=== PATIENT | female | born 1960 | race Caucasian/White ===

== ENCOUNTER → 2018-02-24 07:08 | Outpatient (CLI) | payer OTHER, SELFPAY ==
--- NOTE | 2018-02-24 07:22 | BI_ITS ---
MAMMOGRAPHY - BILATERAL SCREENING REASON FOR EXAM: Female, 57 years old. Routine annual screening examination. PERTINENT HISTORY: Mother with breast cancer. Aunt with breast cancer. TECHNIQUE: Digital bilateral breast gurdeep (3D mammographic acquisition) in the CC and MLO projections. 2-D mediolateral oblique (MLO) and craniocaudad (CC) views of both breasts were obtained. CAD: Full Field Digital Mammography with Computer Added Detection was performed. COMPARISON: No comparison mammograms available at this time. If any prior films become available, an addendum to this report can be generated. FINDINGS: Breast Composition: The breasts are heterogeneously dense, which may obscure small masses. There are no dominant masses or suspicious calcifications. There is a 4.3 mm x 4.1 mm well-defined nodule in the axillary region of the left breast. This most likely represents a small lymph node. Correlation with ultrasound is recommended. No other significant abnormalities are identified. BI/SCREENING MAMM (CAD), BILAT IMPRESSION: 4.3 mm x 4.1 mm well-defined nodule in the axillary region of the left breast as described. This most likely represents a small lymph node. Correlation with ultrasound is recommended. ASSESSMENT CATEGORY: BIRADS Category 0: Incomplete. Need additional imaging evaluation. A letter regarding these results will be sent to the patient by the facility within 30 days. Approximately 10% of breast cancers are not detected by mammography. A normal mammogram should not delay biopsy of a clinically suspicious abnormality. [id number] Electronically Signed: Pete Bartholomew MD at 8:16 EST Tel [phone], Service support ,
== END ==
PROVIDERS: Family Provider Nurse Practitioner Family; PCP Nurse Practitioner Family; Referring Provider Nurse Practitioner Family; Visit Provider Nurse Practitioner Family
DX: Z12.31 Encounter for screening mammogram for malignant neoplasm of breast (principal)
CPT/HCPCS: 77063; 77067

== ENCOUNTER → 2018-03-17 13:14 | Outpatient (CLI) | payer OTHER, SELFPAY ==
[2017-04-14 10:37] VITALS: BMI 22.0
--- NOTE | 2018-03-17 13:17 | US_ITS ---
STUDY: ULTRASOUND BREAST - LEFT REASON FOR EXAM: Female, 57 years old. Axillary nodule. TECHNIQUE: Axial and longitudinal images of the LEFT breast were performed with a high resolution ultrasound transducer. COMPARISON: None. FINDINGS: LEFT Breast: There is normal appearance of the fibroglandular tissue bilaterally. No evidence of any masses, dilated ducts or cysts. No significantly enlarged lymph nodes in the left axilla US/Breast Limited Unilateral IMPRESSION: Negative ultrasound of the left breast BIRADS Category 1. Electronically Signed: Pete Bartholomew MD at 8:40 EST Tel [phone], Service support ,
== END ==
PROVIDERS: Family Provider Nurse Practitioner Family; PCP Nurse Practitioner Family
DX: R92.2 Inconclusive mammogram (principal)
CPT/HCPCS: 76642

== ENCOUNTER → 2018-05-04 12:54 | Outpatient (CLI) | payer OTHER, SELFPAY ==
[2017-04-14 10:37] VITALS: BMI 22.0
--- NOTE | 2018-05-05 10:08 | PFT ---
INTRODUCTION: The patient is a 57-year-old female that presents for pulmonary function studies secondary to a diagnosis of shortness of breath. Respiratory therapy reports good patient effort. Bronchodilators were used during testing. INTERPRETATION: Forced expiration spirometry demonstrates no evidence of a large airways obstructive ventilatory defect. There was no significant response to aerosolized bronchodilators. Spirograms are of good quality and plateau normally. Body plethysmography was performed and revealed an elevated TLC and RV, which is of unclear significance, given the patient's lack of obstruction on spirometry. Diffusing capacity by single breath CO was within normal limits. IMPRESSION: Normal spirometry and diffusing capacity.
== END ==
DX: R06.00 Dyspnea, unspecified (principal)
CPT/HCPCS: 94060; 94726; 94729

== ENCOUNTER → 2018-05-26 15:20 | Outpatient (CLI) | payer OTHER, SELFPAY ==
[2017-04-14 10:37] VITALS: BMI 22.0
--- NOTE | 2018-05-26 15:24 | EKG12_ITS ---
Test Reason : CHEST PAIN Blood Pressure : / mmHG Vent. Rate : 056 BPM Atrial Rate : 056 BPM P-R Int : 134 ms QRS Dur : 088 ms QT Int : 404 ms P-R-T Axes : 068 044 048 degrees QTc Int : 389 ms Sinus bradycardia Possible Left atrial enlargement Borderline ECG Confirmed by ZAYDA GAITAN, BOB ([id number]), photography editor DELMY DE LA TORRE ([id number]) on 05/28/2018 1:06:51 PM Referred By: [facility] Confirmed By:BOB PRIEST MD
== END ==
DX: R07.9 Chest pain, unspecified (principal)
CPT/HCPCS: 93005

== ENCOUNTER → 2018-06-04 09:45 | Outpatient (CLI) | payer OTHER, SELFPAY ==
[2017-04-14 10:37] VITALS: BMI 22.0
--- NOTE | 2018-06-04 09:51 | ECHOD_ITS ---
Reason For Study: chest pain, unspecified Procedure This was a 2D Doppler, Color Flow transthoracic echocardiogram. The study was technically difficult. Due to smoking history. Exam performed in department. Left Ventricle Normal LV size. Left ventricular systolic function is normal. The estimated ejection fraction is 60 %. No evidence for diastolic dysfunction. No regional wall motion abnormalities noted. Right Ventricle Normal RV size. Normal systolic function. Atria Normal left atrium. Normal right atrium. Mitral Valve Normal mitral valve. Tricuspid Valve Normal tricuspid valve. Aortic Valve Normal aortic valve. Pulmonic Valve Normal pulmonic valve. Great Vessels Normal aortic root. The pulmonary artery is normal size. Normal inferior vena cava. Pericardium/Pleural No pericardial effusion. MMode/2D Measurements & Calculations LVIDd: 4.1 cm IVSd: 0.94 cm Ao root diam: 3.2 cm LVIDs: 2.5 cm LVPWd: 0.93 cm LA dimension: 2.9 cm RVDd: 2.5 cm FS: 39.8 % LAV(MOD-bp): 32.3 ml LA A4 area: 12.5 cm2 RA A4 area: 13.1 cm2 LAV(MOD-bp) Indexed: 20.1 ml/m2 LAV(MOD-sp2): 25.5 ml LAV(MOD-sp4): 28.4 ml Doppler Measurements & Calculations MV E max pasquale: 82.1 cm/sec Lat Peak E' Pasquale: 10.1 cm/sec Med Peak E' Pasquale: 7.7 cm/sec MV A max pasquale: 54.3 cm/sec E/E' lat: 8.2 E/E' med: 10.7 MV E/A: 1.5 Ao V2 max: 122.5 cm/sec LV V1 max: 89.8 cm/sec PA V2 max: 82.0 cm/sec Ao max P.0 mmHg LV V1 max P.2 mmHg TR max pasquale: 222.5 cm/sec TR max P.9 mmHg Interpretation Summary Normal LV size. Left ventricular systolic function is normal. The estimated ejection fraction is 60 %. No evidence for diastolic dysfunction. Structurally normal valves. Ordering Physician: CARLOTA PRESCOTT Referring Physician: CARLOTA PRESCOTT FREE Performed By: Trinidad Ann, STAR, RVT
== END ==
DX: R07.9 Chest pain, unspecified (principal)
CPT/HCPCS: 93306

== ENCOUNTER → 2018-06-28 | Outpatient (CLI) | payer OTHER, SELFPAY ==
[2018-06-09 14:50] VITALS: BMI 23.9
--- NOTE | 2018-06-28 12:33 | STE_ITS ---
Reason For Study: CHEST PAIN Stress Results Protocol: ARELY Maximum Predicted HR: 161 bpm Target HR: 137 bpm % Maximum Predicted HR: 95 % DurationHeart Rate Stage (mm:ss) (bpm) BP Comment BASELINE 63 138/82 STAGE 1 3:00 115 152/70 STAGE 2 3:00 141 170/70 STAGE 3 1:00 153 / INCREASED SOB RECOVERY 82 140/86 Stress Duration: 7:00 mm:ss Maximum Stress HR: 153 bpm Baseline Echocardiogram Findings Stress Echo Wall motion Data Resting WM Intermediate WM Stress WM Resting Wall Motion Wall Motion Stress No regional wall motion No regional wall motion abnormalities noted. abnormalities noted. Ejection Fraction 55 %. Ejection Fraction 65 %. Interpretation Summary Exercise stress echo. 57-year-old lady with a history of chest pain. Stress protocol: Resting EKG demonstrates normal sinus rhythm with a rate of 64 bpm normal intervals are noted resting blood pressure 138/82 mmHg. The patient exercised according to regular Arely protocol for total duration of 7 minutes patient completed 1 minute into stage III of the Arely protocol the maximum heart rate attained was 190 beats minute which was 118% of maximum predicted heart rate the maximum workload was 10.1 metabolic equivalents. At rest there were no ST or T wave changes noted suggest ischemia peak exercise upsloping ST changes only were noted with no meet the criteria for ischemia. The resting blood pressure 152/70 with a peak blood pressure 170/70 mmHg. No clinical angina was noted. Stress echocardiographic images. The resting and stress echocardiogram for images were noted to demonstrate preserved ejection fraction the resting ejection fraction was approximately 55% with a peak ejection fraction of 65%. No wall motion abnormalities were noted and the chamber contracted appropriately with augmentation of ejection fraction. Conclusion: Excellent functional capacity. Normal rest and stress and echocardiogram with no evidence of ischemia. Ordering Physician: Asael Salter Referring Physician: Asael Salter Performed By: Alem Maldonado RDCS
== END | disposition home or self-care (01) ==
LOC: CVS 12:32
PROVIDERS: Referring Provider Internal Medicine Cardiovascular Disease; Visit Provider Internal Medicine Cardiovascular Disease
DX: R07.9 Chest pain, unspecified (principal)
CPT/HCPCS: 93017; 93350

== ENCOUNTER → 2019-02-21 08:49 | Outpatient (CLI) | payer OTHER, SELFPAY ==
[2019-02-21 08:45] VITALS: BMI 25.0
--- NOTE | 2019-02-21 08:51 | RAD_ITS ---
STUDY: X-RAY - LEFT HAND REASON FOR EXAM: Female, 58 years old. Cat bite overlying the first metacarpal. TECHNIQUE: 3 view(s) of the hand. COMPARISON: None. FINDINGS: Normal radiocarpal articulation. Normal distal radioulnar joint. Normal visualized carpal bones. Normal carpal articulations Normal carpometacarpal articulation of the thumb. Normal second through fifth carpometacarpal joints. Normal metacarpi. Normal metacarpophalangeal joint of the thumb. Normal interphalangeal joint of the thumb. Normal proximal and distal phalanges of the thumb. Normal metacarpophalangeal joints of the second through fifth fingers. Normal proximal and distal interphalangeal joints of the second through fifth fingers. Normal phalanges of the second through fifth fingers. Soft tissue swelling. No radiopaque foreign body is seen. RAD/Hand Min 3 Views IMPRESSION: Soft tissue swelling. Electronically Signed: Pete Bartholomew, at 9:08 EST , Service support ,
== END ==
PROVIDERS: Referring Provider Physician Assistant; Visit Provider Physician Assistant
DX: S61.452A Open bite of left hand, initial encounter (principal); W55.01XA Bitten by cat, initial encounter
CPT/HCPCS: 73130

== ENCOUNTER → 2019-08-31 | Outpatient (CLI) | payer OTHER, SELFPAY ==
[2019-02-21 08:45] VITALS: BMI 25.0
--- NOTE | 2019-08-31 08:04 | BI_ITS ---
MAMMOGRAPHY - BILATERAL SCREENING REASON FOR EXAM: Female, 58 years old. Routine annual screening examination. PERTINENT HISTORY: Mother with breast cancer. Aunt with breast cancer. TECHNIQUE: Digital bilateral breast bonita (3D mammographic acquisition) in the CC and MLO projections. 2-D mediolateral oblique (MLO) and craniocaudad (CC) views of both breasts were obtained. CAD: Full Field Digital Mammography with Computer Added Detection was performed. COMPARISON: Comparison is made with prior examination dated February 24, 2018. FINDINGS: Breast Composition: The breasts are heterogeneously dense, which may obscure small masses. There are no dominant masses or suspicious calcifications. Stable 4.5 mm well-defined nodule in the axillary region of the left breast suggestive of a small lymph node. No other significant abnormalities are identified. There has been no significant change since the prior study. BI/SCREEN MAMM (CAD) W/BONITA BILAT IMPRESSION: Stable bilateral screening mammogram. Yearly follow-up mammogram recommended. (A) ASSESSMENT CATEGORY: BIRADS Category 2: Benign. A letter regarding these results will be sent to the patient by the facility within 30 days. Approximately 10% of breast cancers are not detected by mammography. A normal mammogram should not delay biopsy of a clinically suspicious abnormality. [id number] Electronically Signed: Pete Bartholomew, at 9:15 EDT , Service support ,
== END | disposition home or self-care (01) ==
DX: Z12.31 Encounter for screening mammogram for malignant neoplasm of breast (principal)
CPT/HCPCS: 77063; 77067

== ENCOUNTER → 2019-11-19 | Outpatient (CLI) | payer OTHER, SELFPAY ==
[2019-02-21 08:45] VITALS: BMI 25.0
[2019-11-19 09:01] LABS: Absolute Lymphocyte Count 1.43 X10^3/uL (0.83-4.51); Absolute Neutrophil Count 4.8 X10^3/uL (2.0-7.7); Basophil# 0.07 X10^3/uL; Basophil% 0.9 % (0-1); Eosinophil# 0.16 X10^3/uL; Eosinophils% 2.2 % (0-5); Hematocrit 39.9 % (37-47); Hemoglobin 12.9 g/dL (12.0-15.0); Lymphocyte # 1.43 X10^3/ul (4.0); Lymphocyte % 19.4 % (19-41); Mean Corp Hgb Conc 32.3 g/dL (32-36); Mean Corpuscular Volume 92.8 fL (81-99); Mean Platelet Vol. 10.5 fl (6.2-12.0); Monocyte# 0.88 X10^3/uL; Monocyte% 11.9 % (0-10); NRBC Flagged by Analyzer 0 % (0-5); Neutrophil # 4.82 X10^3/uL (2.7-7.7); Neutrophil % 65.5 % (47-70); Platelet Count 395 K/mm3 (150-450); RBC Distribution Width CV 13.8 % (11.6-14.6); RBC Distribution Width SD 46.5 fl (35.1-43.9); White Blood Count 7.4 K/mm3 (4.4-11.0)
[2019-11-19 09:12] LABS: ALB/GLOB Ratio 1.1 RATIO (0.9-2.4); AST(SGOT) 14 U/L (15-37); Alanine Aminotransfer ALT/SGPT 17 U/L (13-56); Albumin, Serum 3.9 g/dL (3.2-5.0); Alkaline Phosphatase 78 U/L (45-117); Anion Gap 3 (5-15); BUN 12 mg/dL (7-18); BUN/Creat Ratio 13.2 RATIO (10-20); Calcium,Total 8.9 mg/dL (8.5-10.1); Chloride 110 mmol/L (98-107); Cholesterol 209 mg/dL (200); Creatinine, Serum 0.91 mg/dL (0.55-1.02); EST Glomerular Filtration Rate 67 mL/min (>60); Est Glom Filt Rate - Afr Amer 81 mL/min (>60); Globulin 3.5 g/dL (2.2-4.2); Glucose 107 mg/dL (74-106); High Density Lipoprotein 53 mg/dL; Protein, Total 7.4 g/dL (6.4-8.2); Sodium Level 140 mmol/L (136-145); Triglycerides 57 mg/dL; Very Low Density Lipoprotein 11 mg/dL (5-40)
[2019-11-20 08:38] LABS: Vitamin D,25 Hydroxy 39.8 ng/mL
== END | disposition home or self-care (01) ==
LOC: LAB 08:08
PROVIDERS: Visit Provider Nurse Practitioner Family
DX: E78.5 Hyperlipidemia, unspecified (principal); E55.9 Vitamin D deficiency, unspecified; F41.9 Anxiety disorder, unspecified; F10.10 Alcohol abuse, uncomplicated
CPT/HCPCS: 36415; 80053; 80061; 82306; 85025

== ENCOUNTER → 2020-05-22 08:36 | Outpatient (CLI) | payer OTHER, SELFPAY ==
[2019-02-21 08:45] VITALS: BMI 25.0
[2020-05-22 09:40] LABS: Absolute Lymphocyte Count 1.58 X10^3/uL (0.83-4.51); Absolute Neutrophil Count 3.5 X10^3/uL (2.0-7.7); Basophil# 0.07 X10^3/uL; Basophil% 1.1 % (0-1); Eosinophil# 0.14 X10^3/uL; Eosinophils% 2.3 % (0-5); Hematocrit 43.7 % (37-47); Hemoglobin 13.6 g/dL (12.0-15.0); Lymphocyte # 1.58 X10^3/ul (4.0); Lymphocyte % 25.6 % (19-41); Mean Corp Hgb Conc 31.1 g/dL (32-36); Mean Corpuscular Hgb 28.6 pg (27.0-32.0); Mean Corpuscular Volume 91.8 fL (81-99); Mean Platelet Vol. 10.4 fl (6.2-12.0); Monocyte# 0.86 X10^3/uL; NRBC Flagged by Analyzer 0 % (0-5); Neutrophil % 56.8 % (47-70); Platelet Count 402 K/mm3 (150-450); RBC Distribution Width CV 12.6 % (11.6-14.6); RBC Distribution Width SD 42.9 fl (35.1-43.9); Red Blood Count 4.76 M/mm3 (4.2-5.4); White Blood Count 6.2 K/mm3 (4.4-11.0)
[2020-05-22 10:20] LABS: ALB/GLOB Ratio 1.1 RATIO (0.9-2.4); AST(SGOT) 22 U/L (15-37); Alanine Aminotransfer ALT/SGPT 22 U/L (13-56); Alkaline Phosphatase 80 U/L (45-117); Anion Gap 4 (5-15); BUN 13 mg/dL (7-18); BUN/Creat Ratio 12.4 RATIO (10-20); Calcium,Total 9.4 mg/dL (8.5-10.1); Chloride 104 mmol/L (98-107); Creatinine, Serum 1.05 mg/dL (0.55-1.02); EST Glomerular Filtration Rate 57 mL/min (>60); Est Glom Filt Rate - Afr Amer 68 mL/min (>60); Globulin 3.6 g/dL (2.2-4.2); Glucose 102 mg/dL (74-106); Potassium 4.3 mmol/L (3.5-5.1); Protein, Total 7.6 g/dL (6.4-8.2); Sodium Level 137 mmol/L (136-145); Thyroid Stim Hormone (TSH) 0.85 uIU/mL (0.358-3.74)
== END ==
DX: E78.5 Hyperlipidemia, unspecified (principal); F10.10 Alcohol abuse, uncomplicated
CPT/HCPCS: 36415; 80053; 84443; 85025

== ENCOUNTER → 2020-10-03 06:43 | Outpatient (CLI) | payer OTHER, SELFPAY ==
[2019-02-21 08:45] VITALS: BMI 25.0
[2020-10-03 07:32] LABS: Absolute Lymphocyte Count 2.03 X10^3/uL (0.83-4.51); Absolute Neutrophil Count 4.5 X10^3/uL (2.0-7.7); Basophil# 0.07 X10^3/uL; Basophil% 0.9 % (0-1); Eosinophil# 0.21 X10^3/uL; Eosinophils% 2.7 % (0-5); Hematocrit 42.8 % (37-47); Hemoglobin 13.8 g/dL (12.0-15.0); Lymphocyte # 2.03 X10^3/ul (0.83-4.51); Lymphocyte % 26.2 % (19-41); Mean Corp Hgb Conc 32.2 g/dL (32-36); Mean Corpuscular Hgb 29.6 pg (27.0-32.0); Mean Corpuscular Volume 91.6 fL (81-99); Mean Platelet Vol. 10.8 fl (6.2-12.0); Monocyte# 0.86 X10^3/uL; Monocyte% 11.1 % (0-10); NRBC Flagged by Analyzer 0 % (0-5); Neutrophil # 4.54 X10^3/uL (2.7-7.7); Neutrophil % 58.7 % (47-70); Platelet Count 390 K/mm3 (150-450); RBC Distribution Width CV 13.5 % (11.6-14.6); Red Blood Count 4.67 M/mm3 (4.2-5.4); White Blood Count 7.7 K/mm3 (4.4-11.0)
[2020-10-03 08:22] LABS: ALB/GLOB Ratio 1.1 RATIO (0.9-2.4); AST(SGOT) 16 U/L (15-37); Alanine Aminotransfer ALT/SGPT 18 U/L (13-56); Alkaline Phosphatase 84 U/L (45-117); Anion Gap 4 (5-15); BUN 13 mg/dL (7-18); BUN/Creat Ratio 14.5 RATIO (10-20); Calcium,Total 8.9 mg/dL (8.5-10.1); Chloride 107 mmol/L (98-107); EST Glomerular Filtration Rate 68 mL/min (>60); Est Glom Filt Rate - Afr Amer 82 mL/min (>60); Globulin 3.7 g/dL (2.2-4.2); Glucose 109 mg/dL (74-106); Potassium 4.1 mmol/L (3.5-5.1); Protein, Total 7.7 g/dL (6.4-8.2); Sodium Level 138 mmol/L (136-145); Thyroid Stim Hormone (TSH) 1.23 uIU/mL (0.358-3.74)
== END ==
DX: E78.5 Hyperlipidemia, unspecified (principal); F10.10 Alcohol abuse, uncomplicated
CPT/HCPCS: 36415; 80053; 84443; 85025

== ENCOUNTER → 2020-10-24 07:01 | Outpatient (CLI) | payer OTHER, SELFPAY ==
[2019-02-21 08:45] VITALS: BMI 25.0
--- NOTE | 2020-10-24 07:05 | BI_ITS ---
MAMMOGRAPHY - BILATERAL SCREENING REASON FOR EXAM: Female, 60 years old. Routine annual screening examination. PERTINENT HISTORY: TECHNIQUE: Digital bilateral breast bonita (3D mammographic acquisition) in the CC and MLO projections. 2-D mediolateral oblique (MLO) and craniocaudad (CC) views of both breasts were obtained. CAD: Full Field Digital Mammography with Computer Added Detection was performed. COMPARISON: 2019 FINDINGS: Breast Composition: Scans There are no dominant masses or suspicious calcifications. No other significant abnormalities are identified. BI/SCRN MAMM (CAD)W/BONITA BILAT IMPRESSION: Stable bilateral screening mammogram. Yearly follow-up mammogram recommended. (A) ASSESSMENT CATEGORY: BIRADS Category 1: Negative. A letter regarding these results will be sent to the patient by the facility within 30 days. Approximately 10% of breast cancers are not detected by mammography. A normal mammogram should not delay biopsy of a clinically suspicious abnormality. [id number] Electronically Signed: Sudeep Rodriguez DO at 15:33 EDT Tel , Service support ,
[2020-10-24 13:06] LABS: Vitamin B12 296 pg/mL (211-911)
[2020-10-24 13:50] LABS: Ferritin 34 ng/mL (8-252); Iron 74 ug/dL (50-170); Iron Binding Capacity,Total 350 ug/dL (250-450)
[2020-10-26 15:49] LABS: Vitamin D 1,25-Dihydroxy 51.2 pg/mL (19.9-79.3)
== END ==
PROVIDERS: Referring Provider Nurse Practitioner Adult Health; Visit Provider Nurse Practitioner Adult Health
DX: Z12.31 Encounter for screening mammogram for malignant neoplasm of breast (principal)
CPT/HCPCS: 36415; 77063; 77067; 82607; 82652; 82728; 82746; 83540; 83550

== ENCOUNTER → 2020-11-09 13:07 | Outpatient (CLI) | payer OTHER, SELFPAY ==
[2019-02-21 08:45] VITALS: BMI 25.0
--- NOTE | 2020-11-09 13:11 | CT_ITS ---
STUDY: LOW DOSE CT LUNG CANCER SCREENING REASON FOR EXAM: Female, 60 years old. NICOTINE DEPENDENCE,UNSPECIFIED,UNCOMPLICATED. Patient smoked half a pack per day for 40 years. RADIATION DOSAGE (If Supplied By Facility): CTDIvol = ( 2.01 ) mGy, DLP = ( 65.70 ) mGycm TECHNIQUE: No contrast was administered. Low dose technique was utilized (average mAS-38 and kVp 120). 1.25 mm axial source images with a slice interval of 1.25-mm were reconstructed in lung windows. 2.5 mm axial source images with a slice interval of 2.5-mm were reconstructed in lung windows. 5.0 mm axial source images with a slice interval of 5.0-mm were reconstructed in soft tissue windows. Nodule measured using lung windows on PACS and/or independent workstation with automated measurement of minimum and maximum diameter. Nodule measurement reported as average diameter rounded to the nearest whole number. Growth is defined as an increase ins size of greater than 1.5 mm. COMPARISON: None. NODULES: No suspicious nodules are seen. Findings suggest some mild scarring along the anterior medial aspect of the right middle lobe. Emphysema: No significant emphysema is unchanged. Endobronchial lesion: None Aorta: Unremarkable Coronary arteries: Unremarkable Heart: Unremarkable Pulmonary artery: Unremarkable Mediastinal nodes: Unremarkable Other chest and abdominal findings: CT/Low Dose CT Lung Screening IMPRESSION: Lung-RADS category 2 - Continue annual screening with LDCT in 12 months. IMPORTANT NOTES FOR USE: ACR Lung-RADS Version 1.1 Assessment Categories Release Date: 2018 Category: Coded 0-4 bases on nodule(s) with highest degree of suspicion. Negative screen is defined as categories 1 and 2; a positive screen is defined as categories 3 and 4. Category 3 and 4A nodules that are unchanged on interval CT should be coded as category 2, and individuals returned to screening in 12 months. Category 4X: Category 3 or 4 nodules with additional imaging findings that increase the suspicion of lung cancer, such as spiculation, GGN that doubles in size in 1 year, enlarged lymph notes, etc. Category Modifiers: S (significant finding unrelated to lung cancer) Electronically Signed: Pete Bartholomew MD at 13:47 EDT , Service support ,
== END ==
PROVIDERS: Referring Provider Nurse Practitioner Adult Health; Visit Provider Nurse Practitioner Adult Health
DX: Z12.2 Encounter for screening for malignant neoplasm of respiratory organs (principal); F17.200 Nicotine dependence, unspecified, uncomplicated
CPT/HCPCS: 71271

== ENCOUNTER → 2021-01-30 09:17 | Outpatient (CLI) | payer OTHER, SELFPAY ==
--- NOTE | 2021-01-30 09:21 | EKG12_ITS ---
Test Reason : DIZZINESS Blood Pressure : / mmHG Vent. Rate : 061 BPM Atrial Rate : 061 BPM P-R Int : 132 ms QRS Dur : 084 ms QT Int : 406 ms P-R-T Axes : 051 033 044 degrees QTc Int : 408 ms Normal sinus rhythm Normal ECG Confirmed by REI GAITAN, EDGAR ([id number]), assistant film editor ALEJANDRO SCHWAB ([id number]) on 01/31/2021 8:58:26 AM Referred By: Cleopatra Gaspar Confirmed By:EDGAR MINAYA MD
[2021-01-30 10:22] LABS: Absolute Lymphocyte Count 1.92 X10^3/uL (0.83-4.51); Absolute Neutrophil Count 3.5 X10^3/uL (2.0-7.7); Basophil# 0.07 X10^3/uL; Basophil% 1.1 % (0-1); Eosinophil# 0.21 X10^3/uL; Eosinophils% 3.3 % (0-5); Hematocrit 40.1 % (37-47); Hemoglobin 12.9 g/dL (12.0-15.0); Lymphocyte # 1.92 X10^3/ul (0.83-4.51); Lymphocyte % 30.3 % (19-41); Mean Corp Hgb Conc 32.2 g/dL (32-36); Mean Corpuscular Hgb 28.7 pg (27.0-32.0); Mean Corpuscular Volume 89.1 fL (81-99); Mean Platelet Vol. 10.2 fl (6.2-12.0); Monocyte# 0.61 X10^3/uL; Monocyte% 9.6 % (0-10); NRBC Flagged by Analyzer 0 % (0-5); Neutrophil # 3.51 X10^3/uL (2.7-7.7); Neutrophil % 55.4 % (47-70); Platelet Count 403 K/mm3 (150-450); RBC Distribution Width CV 13.1 % (11.6-14.6); White Blood Count 6.3 K/mm3 (4.4-11.0)
[2021-01-30 11:05] LABS: Vitamin B12 678 pg/mL (211-911)
[2021-01-30 11:31] LABS: Cholesterol 248 mg/dL (200); High Density Lipoprotein 48 mg/dL; Thyroid Stim Hormone (TSH) 0.85 uIU/mL (0.358-3.74); Triglycerides 70 mg/dL; Very Low Density Lipoprotein 14 mg/dL (5-40)
[2021-01-31 17:23] LABS: Thyroid Peroxidase AB 11 IU/mL (0-34)
== END ==
PROVIDERS: Referring Provider Nurse Practitioner Adult Health; Visit Provider Nurse Practitioner Adult Health
DX: E78.5 Hyperlipidemia, unspecified (principal); R53.83 Other fatigue; R42 Dizziness and giddiness
CPT/HCPCS: 36415; 80061; 82607; 82746; 84443; 85025; 86376; 93005

== ENCOUNTER 2021-04-16 20:00 | Outpatient (CLI) | payer OTHER, SELFPAY | END 2021-04-16 23:59 | disposition short-term general hospital (02) | PROVIDERS: Visit Provider Nurse Practitioner Adult Health | DX: R53.83 Other fatigue (principal); G47.10 Hypersomnia, unspecified | CPT/HCPCS: 95810 ==

== ENCOUNTER 2021-06-04 20:30 | Outpatient (CLI) | payer OTHER, SELFPAY | END 2021-06-04 23:59 | disposition home or self-care (01) | LOC: SL 20:30 | PROVIDERS: Visit Provider Nurse Practitioner Acute Care | DX: G47.33 Obstructive sleep apnea (adult) (pediatric) (principal) | CPT/HCPCS: 95811 ==

== ENCOUNTER → 2021-08-21 | Outpatient (CLI) | payer OTHER, SELFPAY | END | disposition home or self-care (01) | LOC: SL 11:56 | PROVIDERS: Referring Provider Nurse Practitioner Acute Care; Visit Provider Nurse Practitioner Acute Care | DX: Z00.00 Encounter for general adult medical examination without abnormal findings (principal) ==

== ENCOUNTER → 2021-10-25 | Outpatient (CLI) | payer OTHER, SELFPAY ==
--- NOTE | 2021-10-25 13:40 | BI_ITS ---
MAMMOGRAPHY - BILATERAL SCREENING REASON FOR EXAM: Female, 61 years old. Routine annual screening examination. PERTINENT HISTORY: Mother with breast cancer. Aunt with breast cancer. TECHNIQUE: Digital bilateral breast bonita (3D mammographic acquisition) in the CC and MLO projections. 2-D mediolateral oblique (MLO) and craniocaudad (CC) views of both breasts were obtained. CAD: Full Field Digital Mammography with Computer Added Detection was performed. COMPARISON: Comparison is made with prior study dated 10/24/2020 and 08/31/2019. FINDINGS: Breast Composition: There are scattered areas of fibroglandular density. There are no dominant masses or suspicious calcifications. Stable 4.5 mm well-defined nodule in the axillary region of the left breast suggestive of a small lymph node. No other significant abnormalities are identified. There has been no significant change since the prior study. BI/SCRN MAMM (CAD)W/BONITA BILAT IMPRESSION: Stable bilateral screening mammogram. Yearly follow-up mammogram recommended. (A) ASSESSMENT CATEGORY: BIRADS Category 2: Benign. A letter regarding these results will be sent to the patient by the facility within 30 days. Approximately 10% of breast cancers are not detected by mammography. A normal mammogram should not delay biopsy of a clinically suspicious abnormality. [id number] Electronically Signed: Pete Bartholomew MD at 10:18 EDT ,
== END | disposition home or self-care (01) ==
LOC: OPBI 13:40
PROVIDERS: Visit Provider Family Medicine
DX: Z12.31 Encounter for screening mammogram for malignant neoplasm of breast (principal); Z80.3 Family history of malignant neoplasm of breast
CPT/HCPCS: 77063; 77067

== ENCOUNTER → 2021-11-20 | Outpatient (CLI) | payer OTHER, SELFPAY | END | disposition home or self-care (01) | LOC: SL 21:43 | PROVIDERS: Referring Provider Internal Medicine Critical Care Medicine; Visit Provider Internal Medicine Critical Care Medicine | DX: G47.33 Obstructive sleep apnea (adult) (pediatric) (principal) | CPT/HCPCS: 95811 ==

== ENCOUNTER → 2021-11-22 | Outpatient (CLI) | payer OTHER, SELFPAY ==
[2021-11-22 07:06] LABS: Absolute Lymphocyte Count 2.45 X10^3/uL (0.83-4.51); Absolute Neutrophil Count 4.4 X10^3/uL (2.0-7.7); Basophil# 0.08 X10^3/uL; Eosinophil# 0.44 X10^3/uL; Eosinophils% 5.3 % (0-5); Hematocrit 40.9 % (37-47); Hemoglobin 13.2 g/dL (12.0-15.0); Lymphocyte # 2.45 X10^3/ul (0.83-4.51); Lymphocyte % 29.3 % (19-41); Mean Corp Hgb Conc 32.3 g/dL (32-36); Mean Corpuscular Hgb 29.3 pg (27.0-32.0); Mean Corpuscular Volume 90.9 fL (81-99); Mean Platelet Vol. 10.3 fl (6.2-12.0); Monocyte# 0.94 X10^3/uL; Monocyte% 11.3 % (0-10); NRBC Flagged by Analyzer 0 % (0-5); Neutrophil # 4.41 X10^3/uL (2.7-7.7); Neutrophil % 52.7 % (47-70); Platelet Count 429 K/mm3 (150-450); RBC Distribution Width CV 13.6 % (11.6-14.6); RBC Distribution Width SD 45.8 fl (35.1-43.9); White Blood Count 8.4 K/mm3 (4.4-11.0)
[2021-11-22 07:38] LABS: ALB/GLOB Ratio 1.1 RATIO (0.9-2.4); AST(SGOT) 15 U/L (15-37); Alanine Aminotransfer ALT/SGPT 21 U/L (13-56); Alkaline Phosphatase 76 U/L (45-117); Anion Gap 4 (5-15); BUN 15 mg/dL (7-18); BUN/Creat Ratio 13.9 RATIO (10-20); Calcium,Total 9.3 mg/dL (8.5-10.1); Chloride 108 mmol/L (98-107); Cholesterol 276 mg/dL (200); Creatinine, Serum 1.08 mg/dL (0.55-1.02); EST Glomerular Filtration Rate 54 mL/min (>60); Est Glom Filt Rate - Afr Amer 66 mL/min (>60); Globulin 3.5 g/dL (2.2-4.2); Glucose 109 mg/dL (74-106); High Density Lipoprotein 45 mg/dL; Potassium 3.9 mmol/L (3.5-5.1); Protein, Total 7.5 g/dL (6.4-8.2); Sodium Level 141 mmol/L (136-145); Triglycerides 140 mg/dL; Very Low Density Lipoprotein 28 mg/dL (5-40)
[2021-11-27 08:40] LABS: Vitamin D 1,25-Dihydroxy 37.7 pg/mL (24.8-81.5)
== END | disposition home or self-care (01) ==
LOC: LAB 06:37
PROVIDERS: Referring Provider Family Medicine; Visit Provider Family Medicine
DX: F33.0 Major depressive disorder, recurrent, mild (principal)
CPT/HCPCS: 36415; 80053; 80061; 82652; 85025

== ENCOUNTER → 2021-12-20 | Outpatient (CLI) | payer OTHER, SELFPAY | END | disposition home or self-care (01) | LOC: SL 13:34 | PROVIDERS: Visit Provider Nurse Practitioner Acute Care | DX: Z00.00 Encounter for general adult medical examination without abnormal findings (principal) ==

== ENCOUNTER 2022-01-14 08:23 | Day surgery (SDC) | payer OTHER, SELFPAY ==
[2022-01-14] MEDS: Lactated Ringers 1,000 ML 15 ML IV (08:45)
[2022-01-14 09:01] VITALS: BP 106/62; PULSE 70; RESP 18; TEMP 36.3; O2SAT 97; BMI 26.5
--- NOTE | 2022-01-14 09:47 | HP.PCM_ITS ---
History and Physical Date of Admission: 01/14/22 Intake Vital Signs ? 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 Specialist Required: No Is patient in pain?: No Allergies penicillin G Allergy (Mild, Verified 12/10/21 13:21) Swelling Medications escitalopram oxalate 20 mg tablet (Lexapro) 20 mg PO QDAY #90 tabs 04/14/17 [Rx Confirmed 12/10/21] bupropion HCl 150 mg tablet,12 hr sustained-release (Wellbutrin SR) 150 mg PO BID 12/10/18 [History Confirmed 12/10/21] omeprazole 20 mg capsule,delayed release 20 mg PO DAILY 05/14/21 [History Confirmed 12/10/21] albuterol sulfate 90 mcg/actuation aerosol inhaler 2 puff inhalation Q6H PRN 12/10/21 [History Confirmed 12/10/21] fluticasone propionate 50 mcg/actuation nasal spray,suspension spray intranasal PRN 12/10/21 [History Confirmed 12/10/21] hydrocortisone 2.5 % topical cream gm topical 12/10/21 [History Confirmed 12/10/21] Is last menstrual period known: No Post menopausal: Yes Patient : No PFSH Medical History? Anxiety and depression Hyperlipidemia Hypotension Nicotine dependence Skin cancer SOB (shortness of breath) Surgical History? Cyst Removal from breast History of hysterectomy History of LAVH Hx of appendectomy Family History? Mother Breast cancer HypertensionAunt Breast cancerBrother Hypertension Social History? Smoking Status:? Current every day smoker tobacco type: cigarettes alcohol intake:? current alcohol intake frequency: 0-2 drinks per day Alcohol type: hard liquor substance use type:? does not use caffeine:? Yes what type of physical activity do you participate in:? walking frequency:? 3-4 times per week seatbelt use:? always do you feel safe at home:? Yes additional social history:? , Just moved back from the [facility] ? HPI HPI HPI: Patient is a 61-year-old female with GERD.? She tried stopping her PPI at the request of her PCP but this made her reflux worse.? Her reflux is well controlled on a PPI.? Without a PPI she describes burning and reflux and belching. ROS General General: No weight change or fatigue HEENT HEENT: No difficulty swallowing Endo Endocrine: No thyroid disease Musc Musculoskeletal: No back problems or arthritis Cardio Cardiovascular: No pacemaker, heart disease, atrial fibrillation, high blood pressure, heart attack, heart stent, palpitations or chest pain Psych Psychiatric: No depression or anxiety Resp Respiratory: No shortness of breath, No cough, No COPD, No asthma and No emphysema Gastro Gastrointestinal: No abdominal pain, No nausea or vomiting, No diarrhea, No constipation, No blood in stool, Yes acid reflux, No hemorrhoids, No ulcers, No gallbladder problem and No black,tarry stools Additional Details: Patient also describes belching and burning in the chest Don Hematologic: No blood thinners Exam Const General: cooperative Orientation: alert and oriented x3 HENMT Head: normal to inspection Neck Neck: normal visual inspection and full ROM Chest Chest palpation & inspection: normal inspection of the chest Resp Effort & Inspection: normal respiratory effort Auscultation: clear to auscultation bilaterally Cardio Rate: regular rate Rhythm: regular rhythm GI Inspection: non-distended Palpation: soft and nontender Skin General: no rashes or lesions noted Neuro General: patient alert and patient oriented x3 Extrem General: full ROM Psych Appearance: grossly normal Mental Status: mental status grossly normal Assessment and Plan Assessment and Plan (1) GERD (gastroesophageal reflux disease): ?Status:?Acute ?Plan: The patient has GERD and it sounds like this is well controlled on a PPI.? I told her she would be a good candidate for Kalani fundoplication I briefly discussed the procedure with her.? I will start the work-up with an EGD and pH probe and see her back a week after that and if she is agreeable I will order manometry and discuss surgery further. I explained endoscopy in detail to the patient.? I explained the risks including but not limited to stroke or heart attack with anesthesia, perforation of the GI tract, bleeding, infection.? I explained that any of these could necessitate further emergency surgery.? The patient understands and all questions were answered sufficiently.? The patient wishes to proceed with procedure. Mars Pyle MD Pager: [facility] [address] [place] [address] [address] [place] [address] Office: I have re-examined the patient. There are no clinical changes since date of exam.
[2022-01-14 10:23] VITALS: BP 99/65; PULSE 67; RESP 18; TEMP 36.8; O2SAT 90
--- NOTE | 2022-01-14 10:23 | OP.EGD_ITS ---
Patient Name: Flakita Payton Procedure Date: 01/14/2022 10:05 AM Date of : 1960 Age: 61 Procedure: Upper GI endoscopy Indications: Suspected reflux esophagitis, Gastro-esophageal reflux disease Providers: Mars Pyle MD Medicines: Monitored Anesthesia Care Patient Profile: This is a 61 year old female. Refer to note in patient chart for documentation of history and physical. Complications: No immediate complications. Procedure: Pre-Anesthesia Assessment: - Prior to the procedure, a History and Physical was performed, and patient medications and allergies were reviewed. The patient's tolerance of previous anesthesia was also reviewed. The risks and benefits of the procedure and the sedation options and risks were discussed with the patient. All questions were answered, and informed consent was obtained. Prior Anticoagulants: The patient has taken no previous anticoagulant or antiplatelet agents. After reviewing the risks and benefits, the patient was deemed in satisfactory condition to undergo the procedure. After obtaining informed consent, the endoscope was passed under direct vision. Throughout the procedure, the patient's blood pressure, pulse, and oxygen saturations were monitored continuously. The gastroscope was introduced through the mouth, and advanced to the fourth part of duodenum. The upper GI endoscopy was accomplished without difficulty. The patient tolerated the procedure well. Scope In: 10:11:46 AM Scope Out: 10:15:53 AM Total Procedure Duration Time 0 hours 4 minutes 7 seconds Findings: The esophagus was normal. The stomach was normal. The examined duodenum was normal. The BUSTAMANTE capsule with delivery system was introduced through the mouth and advanced into the esophagus, such that the BUSTAMANTE pH capsule was positioned 31 cm from the incisors, which was 6 cm proximal to the GE junction. Suction was applied to the well of the BUSTAMANTE pH capsule to suck in the adjacent mucosa of the esophagus using the external vacuum pump set at a minimum vacuum pressure of 550 mmHg for 30 seconds. The BUSTAMANTE pH capsule was then deployed by depressing the plunger on top of the handle to advance the locking pin into the mucosa, thereby attaching the capsule to the esophagus. The plunger was then rotated a quarter turn clockwise to release the capsule from the delivery system. The delivery system was then withdrawn. Endoscopy was utilized for probe placement and diagnostic evaluation. Impression: - Normal esophagus. - Normal stomach. - Normal examined duodenum. - The BUSTAMANTE pH capsule was positioned 31 cm from the incisors, which was 6 cm proximal to the GE junction. - No specimens collected. Recommendation: - Discharge patient to home. - Resume previous diet. - Continue present medications. Procedure Code(s): --- Professional --- 36732, Esophagogastroduodenoscopy, flexible, transoral; diagnostic, including collection of specimen(s) by brushing or washing, when performed (separate procedure) Diagnosis Code(s): --- Professional --- K21.9, Gastro-esophageal reflux disease without esophagitis CPT copyright 2017 [employer]. All rights reserved. The codes documented in this report are preliminary and upon ceiling cleaner review may be revised to meet current compliance requirements. Mars Pyle MD 01/14/2022 10:22:20 AM This report has been signed electronically. Number of Addenda: 0 Note Initiated On: 01/14/2022 10:05 AM
--- NOTE | 2022-01-14 10:24 | OP.CCLET_ITS ---
01/14/2022 Yadira Justice [facility] Re : Upper GI endoscopy [facility] This procedure was performed on Friday, January 14, 2022. My impressions and recommendations are as follows: Impressions : - Normal esophagus. - Normal stomach. - Normal examined duodenum. - The BUSTAMANTE pH capsule was positioned 31 cm from the incisors, which was 6 cm proximal to the GE junction. - No specimens collected. Recommendations : - Discharge patient to home. - Resume previous diet. - Continue present medications. My findings are described in the full procedure note, which is enclosed. If I can be of further assistance, please feel free to contact me at Doctor phone number(s): , Work: . Sincerely, Mars Pyle MD 01/14/2022 10:22:20 AM This report has been signed electronically.
[2022-01-14 10:25] VITALS: BP 103/61; BP 99/65; PULSE 60; RESP 18; O2SAT 91
[2022-01-14 10:35] VITALS: BP 105/64; BP 99/65; PULSE 61; RESP 16; O2SAT 97
[2022-01-14 10:39] VITALS: BP 106/66; BP 99/65; PULSE 61; RESP 16; TEMP 36.7; O2SAT 97
[2022-01-14 10:52] VITALS: BP 99/65
== END 2022-01-14 11:09 | disposition home or self-care (01) ==
LOC: EN 08:26 → AC 08:27
PROVIDERS: Visit Provider Surgery
PROC: (CPT 43235; principal; 2022-01-14 09:25)
DX: K21.9 Gastro-esophageal reflux disease without esophagitis (principal); F17.210 Nicotine dependence, cigarettes, uncomplicated; F41.9 Anxiety disorder, unspecified; F32.A Depression, unspecified; G47.33 Obstructive sleep apnea (adult) (pediatric); E78.00 Pure hypercholesterolemia, unspecified; J45.909 Unspecified asthma, uncomplicated; Z79.899 Other long term (current) drug therapy
CPT/HCPCS: 43235; J7120; J2405

== ENCOUNTER → 2022-02-27 | Outpatient (CLI) | payer OTHER, SELFPAY ==
--- NOTE | 2022-02-27 07:51 | CT_ITS ---
STUDY: LOW DOSE CT LUNG CANCER SCREENING REASON FOR EXAM: Female, 61 years old. Patient smoked three quarter pack of cigarettes for 45 years. RADIATION DOSAGE (If Supplied By Facility): CTDIvol = ( 3.02 ) mGy, DLP = ( 104.20 ) mGycm TECHNIQUE: No contrast was administered. Low dose technique was utilized (average mAS-38 and kVp 120). 1.25 mm axial source images with a slice interval of 1.25-mm were reconstructed in lung windows. 2.5 mm axial source images with a slice interval of 2.5-mm were reconstructed in lung windows. 5.0 mm axial source images with a slice interval of 5.0-mm were reconstructed in soft tissue windows. COMPARISON: Comparison is made with prior study dated 11/09/2020. NODULES: No suspicious nodules are seen. Emphysema: Stable mild scarring in the right lung apex. Stable mild linear scarring along the medial aspect of the right middle lobe. Mild emphysematous changes. Endobronchial lesion: None Aorta: The ascending aorta measures upper limits of normal. CORONARY ARTERIES: Coronary artery calcification is not seen. Heart: Unremarkable Pulmonary artery: Unremarkable Mediastinal nodes: Unremarkable Other chest and abdominal findings: CT/Low Dose CT Lung Screening IMPRESSION: Lung-RADS category 2 - Continue annual screening with LDCT in 12 months. IMPORTANT NOTES FOR USE: ACR Lung-RADS Version 1.1 Assessment Categories Release Date: 2018 Category: Coded 0-4 bases on nodule(s) with highest degree of suspicion. Negative screen is defined as categories 1 and 2; a positive screen is defined as categories 3 and 4. Category 3 and 4A nodules that are unchanged on interval CT should be coded as category 2, and individuals returned to screening in 12 months. Category 4X: Category 3 or 4 nodules with additional imaging findings that increase the suspicion of lung cancer, such as spiculation, GGN that doubles in size in 1 year, enlarged lymph notes, etc. Category Modifiers: S (significant finding unrelated to lung cancer) Electronically Signed: Pete Bartholomew MD at 9:23 EST ,
== END | disposition home or self-care (01) ==
LOC: CT 07:50
PROVIDERS: Referring Provider Nurse Practitioner Acute Care; Visit Provider Nurse Practitioner Acute Care
DX: F17.210 Nicotine dependence, cigarettes, uncomplicated (principal)
CPT/HCPCS: 71271

== ENCOUNTER → 2022-03-11 | Outpatient (CLI) | payer OTHER, SELFPAY ==
[2022-03-11 08:57] LABS: ALB/GLOB Ratio 1.1 RATIO (0.9-2.4); AST(SGOT) 16 U/L (15-37); Alanine Aminotransfer ALT/SGPT 26 U/L (13-56); Alkaline Phosphatase 64 U/L (45-117); Anion Gap 3 (5-15); BUN 15 mg/dL (7-18); BUN/Creat Ratio 15.3 RATIO (10-20); Calcium,Total 9.1 mg/dL (8.5-10.1); Chloride 109 mmol/L (98-107); Cholesterol 227 mg/dL (200); Creatinine, Serum 0.98 mg/dL (0.55-1.02); EST Glomerular Filtration Rate 61 mL/min (>60); Est Glom Filt Rate - Afr Amer 73 mL/min (>60); Globulin 3.5 g/dL (2.2-4.2); Glucose 120 mg/dL (74-106); High Density Lipoprotein 56 mg/dL; Potassium 4.3 mmol/L (3.5-5.1); Protein, Total 7.5 g/dL (6.4-8.2); Sodium Level 140 mmol/L (136-145); Triglycerides 75 mg/dL; Very Low Density Lipoprotein 15 mg/dL (5-40)
== END | disposition home or self-care (01) ==
LOC: LAB 07:48
PROVIDERS: Visit Provider Nurse Practitioner Family
DX: E78.5 Hyperlipidemia, unspecified (principal)
CPT/HCPCS: 36415; 80053; 80061

== ENCOUNTER → 2022-10-20 | Outpatient (CLI) | payer OTHER, SELFPAY ==
[2022-10-20 07:30] LABS: Absolute Lymphocyte Count 2.05 X10^3/uL (0.83-4.51); Absolute Neutrophil Count 6.3 X10^3/uL (2.0-7.7); Basophil# 0.08 X10^3/uL; Basophil% 0.8 % (0-1); Eosinophil# 0.27 X10^3/uL; Eosinophils% 2.8 % (0-5); Hematocrit 39.8 % (37-47); Hemoglobin 12.5 g/dL (12.0-15.0); Lymphocyte # 2.05 X10^3/ul (0.83-4.51); Lymphocyte % 21.1 % (19-41); Mean Corp Hgb Conc 31.4 g/dL (32-36); Mean Corpuscular Hgb 28.7 pg (27.0-32.0); Mean Corpuscular Volume 91.5 fL (81-99); Mean Platelet Vol. 10.7 fl (6.2-12.0); Monocyte# 1.03 X10^3/uL; Monocyte% 10.6 % (0-10); NRBC Flagged by Analyzer 0 % (0-5); Neutrophil # 6.27 X10^3/uL (2.7-7.7); Neutrophil % 64.4 % (47-70); Platelet Count 394 K/mm3 (150-450); RBC Distribution Width CV 13.8 % (11.6-14.6); RBC Distribution Width SD 46.5 fl (35.1-43.9); Red Blood Count 4.35 M/mm3 (4.2-5.4); White Blood Count 9.7 K/mm3 (4.4-11.0)
[2022-10-20 08:06] LABS: ALB/GLOB Ratio 1.1 RATIO (0.9-2.4); AST(SGOT) 14 U/L (15-37); Alanine Aminotransfer ALT/SGPT 17 U/L (13-56); Albumin, Serum 3.7 g/dL (3.2-5.0); Alkaline Phosphatase 73 U/L (45-117); Anion Gap 3 (5-15); BUN 14 mg/dL (7-18); Calcium,Total 8.7 mg/dL (8.5-10.1); Chloride 110 mmol/L (98-107); Cholesterol 243 mg/dL (200); Creatinine, Serum 0.93 mg/dL (0.55-1.02); EST Glomerular Filtration Rate 64 mL/min (>60); Est Glom Filt Rate - Afr Amer 78 mL/min (>60); Estradiol < 11.0 pg/mL; Follicle Stimulating Hormone 119.3 mIU/mL; Globulin 3.5 g/dL (2.2-4.2); Glucose 94 mg/dL (74-106); High Density Lipoprotein 35 mg/dL; Potassium 4.1 mmol/L (3.5-5.1); Protein, Total 7.2 g/dL (6.4-8.2); Sodium Level 140 mmol/L (136-145); Thyroid Stim Hormone (TSH) 1.29 uIU/mL (0.358-3.74); Triglycerides 205 mg/dL; Very Low Density Lipoprotein 41 mg/dL (5-40)
[2022-10-20 08:22] LABS: Vitamin D,25 Hydroxy 25.3 ng/mL
== END | disposition home or self-care (01) ==
PROVIDERS: Visit Provider Nurse Practitioner Family
DX: E78.5 Hyperlipidemia, unspecified (principal); E55.9 Vitamin D deficiency, unspecified; R53.83 Other fatigue; Z78.0 Asymptomatic menopausal state
CPT/HCPCS: 36415; 80053; 80061; 82306; 82670; 83001; 83002; 84443; 85025

== ENCOUNTER → 2022-11-03 | Outpatient (CLI) | payer OTHER, SELFPAY ==
--- NOTE | 2022-11-03 07:26 | BI_ITS ---
MAMMOGRAPHY - BILATERAL SCREENING REASON FOR EXAM: Female, 62 years old. Routine annual screening examination. PERTINENT HISTORY: Mother with breast cancer. Aunt with breast cancer. TECHNIQUE: Digital bilateral breast bonita (3D mammographic acquisition) in the CC and MLO projections. 2-D mediolateral oblique (MLO) and craniocaudad (CC) views of both breasts were obtained. CAD: Full Field Digital Mammography with Computer Added Detection was performed. COMPARISON: Comparison is made with prior study dated October 25, 2021 and October 24, 2020. FINDINGS: Breast Composition: The breasts are heterogeneously dense, which may obscure small masses. There are no dominant masses or suspicious calcifications. Stable 4.5 mm well-defined nodule in the axillary region of the left breast No other significant abnormalities are identified. There has been no significant change since the prior study. BI/SCRN MAMM (CAD)W/BONITA BILAT IMPRESSION: Stable bilateral screening mammogram. Yearly follow-up mammogram recommended. (A) ASSESSMENT CATEGORY: BIRADS Category 2: Benign. A letter regarding these results will be sent to the patient by the facility within 30 days. Approximately 10% of breast cancers are not detected by mammography. A normal mammogram should not delay biopsy of a clinically suspicious abnormality. [id number] Electronically Signed: Pete Bartholomew MD at 9:40 EDT ,
== END | disposition home or self-care (01) ==
LOC: OPBI 07:25
PROVIDERS: Referring Provider Nurse Practitioner Family; Visit Provider Nurse Practitioner Family
DX: Z12.31 Encounter for screening mammogram for malignant neoplasm of breast (principal); Z80.3 Family history of malignant neoplasm of breast
CPT/HCPCS: 77063; 77067

== ENCOUNTER → 2023-03-12 | Outpatient (CLI) | payer OTHER, SELFPAY ==
--- NOTE | 2023-03-12 13:45 | CT_ITS ---
STUDY: LOW DOSE CT LUNG CANCER SCREENING REASON FOR EXAM: Female, 62 years old. Smoker. Patient smokes half a pack of a day for 40 years. RADIATION DOSAGE (If Supplied By Facility): CTDIvol = ( 2.01 ) mGy, DLP = ( 65.45 ) mGycm TECHNIQUE: No contrast was administered. Low dose technique was utilized (average mAS-38 and kVp 120). 1.25 mm axial source images with a slice interval of 1.25-mm were reconstructed in lung windows. 2.5 mm axial source images with a slice interval of 2.5-mm were reconstructed in lung windows. 5.0 mm axial source images with a slice interval of 5.0-mm were reconstructed in soft tissue windows. COMPARISON: Comparison is made with prior study dated February 27, 2022. NODULES: No suspicious nodules are seen. Emphysema: Minimal scarring at the right lung apex. Stable mild linear scarring in the medial aspect of the right middle lobe. Mild emphysematous changes. Endobronchial lesion: None Aorta: Unremarkable. CORONARY ARTERIES: Coronary artery calcification is not seen. Heart: Unremarkable Pulmonary artery: Unremarkable Mediastinal nodes: Unremarkable Other chest and abdominal findings: CT/Low Dose CT Lung Screening IMPRESSION: Lung-RADS category 2 - Continue annual screening with LDCT in 12 months. IMPORTANT NOTES FOR USE: ACR Lung-RADS Version 1.1 Assessment Categories Release Date: 2018 Category: Coded 0-4 bases on nodule(s) with highest degree of suspicion. Negative screen is defined as categories 1 and 2; a positive screen is defined as categories 3 and 4. Category 3 and 4A nodules that are unchanged on interval CT should be coded as category 2, and individuals returned to screening in 12 months. Category 4X: Category 3 or 4 nodules with additional imaging findings that increase the suspicion of lung cancer, such as spiculation, GGN that doubles in size in 1 year, enlarged lymph notes, etc. Category Modifiers: S (significant finding unrelated to lung cancer) Electronically Signed: Pete Bartholomew MD at 15:14 EST ,
== END | disposition home or self-care (01) ==
LOC: CT 13:44
PROVIDERS: Referring Provider Nurse Practitioner Acute Care; Visit Provider Nurse Practitioner Acute Care
DX: F17.210 Nicotine dependence, cigarettes, uncomplicated (principal)
CPT/HCPCS: 71271

== ENCOUNTER → 2023-07-06 | Outpatient (CLI) | payer OTHER, SELFPAY ==
[2023-07-06 08:53] LABS: Absolute Lymphocyte Count 1.85 X10^3/uL (0.83-4.51); Absolute Neutrophil Count 4.7 X10^3/uL (2.0-7.7); Basophil# 0.07 X10^3/uL; Basophil% 0.9 % (0-1); Eosinophil# 0.38 X10^3/uL; Eosinophils% 4.9 % (0-5); Hematocrit 39.3 % (37-47); Hemoglobin 12.8 g/dL (12.0-15.0); Lymphocyte # 1.85 X10^3/ul (0.83-4.51); Lymphocyte % 23.7 % (19-41); Mean Corp Hgb Conc 32.6 g/dL (32-36); Mean Corpuscular Hgb 28.8 pg (27.0-32.0); Mean Corpuscular Volume 88.3 fL (81-99); Mean Platelet Vol. 10.6 fl (6.2-12.0); Monocyte# 0.75 X10^3/uL; Monocyte% 9.6 % (0-10); NRBC Flagged by Analyzer 0 % (0-5); Neutrophil # 4.73 X10^3/uL (2.7-7.7); Neutrophil % 60.8 % (47-70); Platelet Count 366 K/mm3 (150-450); RBC Distribution Width CV 13.5 % (11.6-14.6); RBC Distribution Width SD 43.5 fl (35.1-43.9); Red Blood Count 4.45 M/mm3 (4.2-5.4); White Blood Count 7.8 K/mm3 (4.4-11.0)
[2023-07-06 09:38] LABS: BNP,B-Type NATRIURETIC PEPTIDE 24.5 pg/mL (0-100)
[2023-07-06 09:47] LABS: ALB/GLOB Ratio 1.1 RATIO (0.9-2.4); AST(SGOT) 17 U/L (15-37); Alanine Aminotransfer ALT/SGPT 20 U/L (13-56); Albumin, Serum 3.8 g/dL (3.2-5.0); Alkaline Phosphatase 66 U/L (45-117); Anion Gap 6 (5-15); BUN 19 mg/dL (7-18); BUN/Creat Ratio 19.9 RATIO (10-20); Calcium,Total 9.1 mg/dL (8.5-10.1); Chloride 108 mmol/L (98-107); Cholesterol 195 mg/dL (200); Creatinine, Serum 0.96 mg/dL (0.55-1.02); EST Glomerular Filtration Rate 62 mL/min (>60); Est Glom Filt Rate - Afr Amer 75 mL/min (>60); Globulin 3.5 g/dL (2.2-4.2); Glucose 120 mg/dL (74-106); High Density Lipoprotein 56 mg/dL; Potassium 3.8 mmol/L (3.5-5.1); Protein, Total 7.3 g/dL (6.4-8.2); Sodium Level 140 mmol/L (136-145); Triglycerides 46 mg/dL; Very Low Density Lipoprotein 9 mg/dL (5-40)
[2023-07-08 13:08] LABS: Vitamin D 1,25-Dihydroxy 80.8 pg/mL (24.8-81.5)
== END | disposition home or self-care (01) ==
PROVIDERS: Visit Provider Nurse Practitioner Family
DX: E78.5 Hyperlipidemia, unspecified (principal); E55.9 Vitamin D deficiency, unspecified; R06.09 Other forms of dyspnea
CPT/HCPCS: 36415; 80053; 80061; 82652; 83880; 84443; 85025

== ENCOUNTER → 2023-12-18 | Outpatient (CLI) | payer MEDICARE, SELFPAY ==
--- NOTE | 2023-12-18 12:29 | ECHOD_ITS ---
Reason For Study: DYSPNEA/SOB Procedure This was a 2D Doppler, Color Flow transthoracic echocardiogram. Exam performed in department. Left Ventricle Normal LV size. Left ventricular systolic function is normal. Stage 1 diastolic dysfunction. The left ventricular ejection fraction is 70 %. No regional wall motion abnormalities noted. Right Ventricle Normal RV size. Normal systolic function. Atria Normal left atrium. Normal right atrium. Mitral Valve Normal mitral valve. Tricuspid Valve Normal tricuspid valve. Mild (1+) tricuspid valve insufficiency. Pulmonary artery systolic pressure is 25 mmHg. Aortic Valve Trisinus/trileaflet aortic valve. Pulmonic Valve Normal pulmonic valve. Great Vessels Normal aortic root. The pulmonary artery is normal size. Inferior vena cava collapse with respiration. Pericardium/Pleural No pericardial effusion. MMode/2D Measurements & Calculations LVIDd: 4.1 cm IVSd: 0.88 cm Ao root diam: 3.0 cm LVIDs: 2.4 cm LVPWd: 0.98 cm RVDd: 2.6 cm FS: 42.4 % LAV(MOD-bp): 24.2 ml LVAd ap4: 22.2 cm2 SV(MOD-sp4): 41.1 ml LAV(MOD-bp) Indexed: 14.2 ml/m2 LVLd ap4: 7.1 cm LAV(MOD-sp2): 21.2 ml EDV(MOD-sp4): 58.5 ml LAV(MOD-sp4): 26.4 ml EDV(sp4-el): 58.5 ml LVAs ap4: 11.3 cm2 LVLs ap4: 6.2 cm ESV(MOD-sp4): 17.4 ml ESV(sp4-el): 17.6 ml EF(MOD-sp4): 70.2 % EF(sp4-el): 70.0 % SV(sp4-el): 41.0 ml LA A4 area: 12.0 cm2 LA dimension(2D): 3.2 cm RA A4 area: 11.6 cm2 TAPSE: 2.4 cm Time Measurements MV dec time: 0.22 sec Doppler Measurements & Calculations MV E max pasquale: 60.0 cm/sec Lat Peak E' Pasquale: 8.5 cm/sec Med Peak E' Pasquale: 7.7 cm/sec MV A max pasquale: 62.6 cm/sec E/E' lat: 7.1 E/E' med: 7.8 MV E/A: 0.96 Ao V2 max: 118.8 cm/sec LV V1 max: 113.1 cm/sec PA V2 max: 80.0 cm/sec Ao max P.6 mmHg LV V1 max P.1 mmHg TR max pasquale: 227.9 cm/sec TR max P.8 mmHg ECHO/Echo Complete Interpretation Summary Normal LV size. Left ventricular systolic function is normal. Stage 1 diastolic dysfunction. The left ventricular ejection fraction is 70 %. Mild (1+) tricuspid valve insufficiency. Ordering Physician: Blanco Hernandez Referring Physician: CARLOTA WHEELER Performed By: Alem Maldonado RDCS
--- NOTE | 2023-12-18 14:20 | STRESSREP ---
Stress Test Report Exercise stress test. 63-year-old lady with a history of dyspnea on exertion Stress protocol: Resting EKG demonstrates normal sinus rhythm with a rate of 64 bpm resting blood pressure is 116/76 mmHg. The patient exercised according to the regular Jim protocol for a total duration of 6 minutes and 10 seconds attaining a maximum heart rate of 123 bpm which was 79% of maximum predicted heart rate; the maximum workload was 7 metabolic equivalents. At rest there were no ST or T wave changes noted to suggest ischemia and at peak exercise upsloping ST changes only were noted which did not meet the criteria for ischemia. No clinical angina was noted the test was terminated due to the target heart rate being achieved/fatigue. Nonspecific ST changes were noted during the recovery phase. The peak blood pressure was 140/66 mmHg. Rate-pressure product was 17,000. Conclusion: Exercise stress test with nonspecific ST changes noted not suggestive of ischemia. Mild functional aerobic impairment No clinical angina noted
== END | disposition home or self-care (01) ==
PROVIDERS: Referring Provider Internal Medicine Cardiovascular Disease; Visit Provider Internal Medicine Cardiovascular Disease
DX: R06.09 Other forms of dyspnea (principal)
CPT/HCPCS: 93017; 93306

== ENCOUNTER → 2023-12-22 | Outpatient (CLI) | payer MEDICARE, SELFPAY ==
--- NOTE | 2023-12-22 14:35 | BI_ITS ---
MAMMOGRAPHY - BILATERAL SCREENING REASON FOR EXAM: Female, 63 years old. Routine annual screening examination. PERTINENT HISTORY: Mother with breast cancer. Aunt with breast cancer. TECHNIQUE: Digital bilateral breast bonita (3D mammographic acquisition) in the CC and MLO projections. 2-D mediolateral oblique (MLO) and craniocaudad (CC) views of both breasts were obtained. CAD: Full Field Digital Mammography with Computer Added Detection was performed. COMPARISON: Comparison is made with prior study November 03, 2022 and October 25, 2021. FINDINGS: Breast Composition: The breasts are heterogeneously dense, which may obscure small masses. There are no dominant masses or suspicious calcifications. Stable 4.5 mm well-defined nodule in the axillary region of the left breast most likely representing a small lymph node. Stable bilateral fat containing axillary lymph nodes. No other significant abnormalities are identified. There has been no significant change since the prior study. BI/SCRN MAMM (CAD)W/BONITA BILAT IMPRESSION: Stable bilateral screening mammogram. Yearly follow-up mammogram recommended. (A) ASSESSMENT CATEGORY: BIRADS Category 2: Benign. A letter regarding these results will be sent to the patient by the facility within 30 days. Approximately 10% of breast cancers are not detected by mammography. A normal mammogram should not delay biopsy of a clinically suspicious abnormality. [id number] Electronically Signed: Pete Bartholomew MD at 15:16 EDT ,
== END | disposition home or self-care (01) ==
LOC: OPBI 14:34
PROVIDERS: Referring Provider Nurse Practitioner Family; Visit Provider Nurse Practitioner Family
DX: Z12.31 Encounter for screening mammogram for malignant neoplasm of breast (principal); Z80.3 Family history of malignant neoplasm of breast
CPT/HCPCS: 77063; 77067

== ENCOUNTER → 2024-03-14 | Outpatient (CLI) | payer MEDICARE, SELFPAY ==
--- NOTE | 2024-03-14 08:16 | CT_ITS ---
ACR Level 3 findings have been noted. An addendum which confirms receipt of the report will follow. EXAM: CT CHEST, LUNG CANCER SCREENING WITHOUT INTRAVENOUS CONTRAST CLINICAL INDICATION: smoking history approximately 40+ pack year history. TECHNIQUE: Helically acquired images were obtained of the chest without intravenous contrast using low dose (LDCT) lung cancer screening protocol. This CT exam was performed using one or more of the following dose reduction techniques: automated exposure control, adjustment of the mA and/or kV according to patient size, and/or use of iterative reconstruction technique. COMPARISON: 03/12/2023, 02/27/2022, 02/10/2021. FINDINGS: LUNGS AND PLEURAL SPACES: Left lower lobe pleural-based pulmonary nodule measuring 8 mm is new compared to the prior examination at which location there may have been minimal scarring. No additional pulmonary nodules are clearly identified. Right greater than left basilar scarring. No pneumothorax. HEART: No significant abnormality. Heart size is normal. No pericardial effusion. No significant coronary artery calcifications. MEDIASTINUM: No significant abnormality. No mediastinal or hilar adenopathy. Esophagus is unremarkable. No hiatal hernia. THYROID: No significant abnormality. No thyroid lesions. BONES/JOINTS: No significant abnormality. No suspicious lytic or blastic abnormality. VASCULATURE: No significant abnormality. Thoracic aorta is non-dilated. LYMPH NODES: No significant abnormality. No enlarged lymph nodes. CT/Low Dose CT Lung Screening IMPRESSION: Left lower lobe pleural-based pulmonary nodule measuring 8 mm is new compared to the prior examination at which location there may have been minimal scarring. No additional pulmonary nodules are clearly identified. ACR Lung CT Screening Reporting And Data System (Lung-RADS) score: 4B - Very Suspicious. Recommend chest CT with or without contrast, PET/CT and/or tissue sampling depending on the probability of malignancy and comorbidities. PET/CT may be used when there is a >=8 mm solid component. For new large nodules that develop on an annual repeat screening CT, a 1 month LDCT may be recommended to address potentially infectious or inflammatory conditions. Electronically Signed: Nicolas Martinez DO at 23:06 [facility] ,
== END | disposition home or self-care (01) ==
LOC: CT 08:16
PROVIDERS: PCP Nurse Practitioner Family; Referring Provider Nurse Practitioner Acute Care; Visit Provider Nurse Practitioner Acute Care
DX: Z12.2 Encounter for screening for malignant neoplasm of respiratory organs (principal); F17.210 Nicotine dependence, cigarettes, uncomplicated
CPT/HCPCS: 71271

== ENCOUNTER → 2024-06-08 | Outpatient (CLI) | payer MEDICARE, SELFPAY ==
[2024-06-08 13:06] LABS: ALB/GLOB Ratio 1.6 RATIO (0.9-2.4); AST(SGOT) 22 U/L (<=31); Alanine Aminotransfer ALT/SGPT 19 U/L (<=34); Albumin, Serum 4.6 g/dL (3.4-4.8); Alkaline Phosphatase 83 U/L (35-104); Anion Gap 12 (5-15); BUN 14 mg/dL (4-19); BUN/Creat Ratio 13.4 RATIO (10-20); Calcium,Total 9.5 mg/dL (7.6-11.0); Chloride 105 mmol/L (98-108); Creatinine, Serum 1.06 mg/dL (0.70-1.20); EST Glomerular Filtration Rate 58 (>60); Globulin 2.9 g/dL (2.2-4.2); Glucose 101 mg/dL (70-99); Lipase 43 U/L (13-75); Protein, Total 7.5 g/dL (5.9-8.4); Sodium Level 138 mmol/L (133-145); Total Bilirubin 0.45 mg/dL (0.00-1.30)
[2024-06-08 13:08] LABS: Absolute Lymphocyte Count 2.23 X10^3/uL (0.83-4.51); Absolute Neutrophil Count 4.4 X10^3/uL (2.0-7.7); Basophil# 0.09 X10^3/uL; Basophil% 1.2 % (0-1); Eosinophils% 3.9 % (0-5); Hematocrit 39.8 % (37-47); Hemoglobin 13.1 g/dL (12.0-15.0); Lymphocyte # 2.23 X10^3/ul (0.83-4.51); Lymphocyte % 28.7 % (19-41); Mean Corp Hgb Conc 32.9 g/dL (32-36); Mean Corpuscular Hgb 29.6 pg (27.0-32.0); Mean Platelet Vol. 10.6 fl (6.2-12.0); Monocyte# 0.75 X10^3/uL; Monocyte% 9.7 % (0-10); NRBC Flagged by Analyzer 0 % (0-5); Neutrophil # 4.37 X10^3/uL (2.7-7.7); Neutrophil % 56.2 % (47-70); Platelet Count 338 K/mm3 (150-450); RBC Distribution Width CV 13.3 % (11.6-14.6); Red Blood Count 4.42 M/mm3 (4.2-5.4); White Blood Count 7.8 K/mm3 (4.4-11.0)
== END | disposition home or self-care (01) ==
PROVIDERS: PCP Nurse Practitioner Family; Visit Provider Nurse Practitioner Family
DX: R10.84 Generalized abdominal pain (principal)
CPT/HCPCS: 36415; 80053; 83690; 85025

== ENCOUNTER → 2024-06-16 | Outpatient (CLI) | payer MEDICARE, SELFPAY ==
--- NOTE | 2024-06-16 08:27 | US_ITS ---
PROCEDURE: ABDOMEN COMPLETE 06/16/2024 REASON FOR EXAM: GENERALIZED ABDOMINAL PAIN TECHNIQUE: Complete abdominal ultrasound tatum-scale images with color doppler. COMPARISON: None available FINDINGS: Liver: Measures 15.4 cm and appears within limits for echogenicity. No evidence of mass or intrahepatic ductal dilation seen. Hepatic color flow is present with flow within the portal vein appearing hepatopetal as expected. Gallbladder: Gallbladder is nondistended without mobile stones, wall thickening or pericholecystic free fluid seen. 3 mm non-dependent nonmobile appearing echogenic focus may represent gallbladder polyp versus adherent tumefactive sludge. Report of a negative sonographic Sams's sign. Wall measures 1-2 mm. Common bile duct: 4-5 mm . Pancreas: Visualized portions appear within limits without ductal dilation identified Kidneys: The right kidney measures 9.2 x 3.8 x 4.1 cm with a cortical thickness of 1 cm. The left kidney measures 8.9 x 4.3 x 4.4 cm with a cortical thickness of 1 cm. No hydronephrosis, renal stone or perinephric edema identified. Spleen: Measures 7.9 x 3.7 x 3.3 cm appears within limits. Aorta: Proximal 2 cm, mid 1.7 cm, distal 1.4 cm, bifurcation appears within limits IVC: Appears patent No free fluid seen. US/Abdomen Complete IMPRESSION: 3 mm gallbladder polyp versus less likely adherent tumefactive sludge as above. Study otherwise appears within limits. Reading Location: [id number]
== END | disposition home or self-care (01) ==
LOC: US 08:26
PROVIDERS: PCP Nurse Practitioner Family; Referring Provider Nurse Practitioner Family; Visit Provider Nurse Practitioner Family
DX: R10.84 Generalized abdominal pain (principal)
CPT/HCPCS: 76700

== ENCOUNTER → 2024-06-20 | Outpatient (CLI) | payer MEDICARE, SELFPAY ==
--- NOTE | 2024-06-20 08:26 | CT_ITS ---
EXAM: CT Chest Without Intravenous Contrast CLINICAL INDICATION: NEW 8 MM NNODULE IN SMOKER TECHNIQUE: Axial computed tomography images of the chest without intravenous contrast. This CT exam was performed using one or more of the following dose reduction techniques: automated exposure control, adjustment of the mA and/or kV according to patient size, and/or use of iterative reconstruction technique. COMPARISON: CT Chest dated 03/14/2024 FINDINGS: LUNGS AND PLEURAL SPACES: Lung emphysema/COPD. Stable 8 mm pulmonary nodule of the left lower lobe. Repeat CT in 3-6 months is recommended. Alternatively, this could be further evaluated with PET-CT or tissue biopsy. Right basilar atelectasis/scarring. No pneumothorax. No significant effusion. HEART: Unremarkable. No cardiomegaly. No significant pericardial effusion. No significant coronary artery calcifications. MEDIASTINUM: A few prominent mediastinal lymph nodes measuring up to 6 mm. BONES/JOINTS: Unremarkable. No acute fracture. No dislocation. SOFT TISSUES: Unremarkable. VASCULATURE: Unremarkable. No thoracic aortic aneurysm. LYMPH NODES: See above. CT/Chest without Contrast IMPRESSION: Stable 8 mm pulmonary nodule of the left lower lobe. Repeat CT in 3-6 months i s recommended. Alternatively, this could be further evaluated with PET-CT or tissue biopsy. Reading Location[facility]
== END | disposition home or self-care (01) ==
LOC: CT 08:25
PROVIDERS: PCP Nurse Practitioner Family; Referring Provider Nurse Practitioner Acute Care; Visit Provider Nurse Practitioner Acute Care
DX: R91.1 Solitary pulmonary nodule (principal)
CPT/HCPCS: 71250

== ENCOUNTER 2024-07-11 07:31 | Day surgery (SDC) | payer MEDICARE, SELFPAY ==
--- NOTE | 2024-07-06 11:21 | PAT.ANESEVAL ---
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 When Was Last Pacemaker Check QUESTION #4 FULL TEXT: You/Your Family Experience fever (hyperthermia) with Anesthesia Last Oral Intake Last Oral intake: Last Oral Intake NPO since Meds taken in AM with sips of water? Meds patient instructed to take am of surgery PONV PONV - sales promotion coordinator: PONV - sales promotion coordinator Female Yes 07/06/24 10:35 HX of Motion Sickness No 07/06/24 10:35 HX of N/V After Surgery No 07/06/24 10:35 Non-Smoker No 07/06/24 10:35 Duration of Surgery greater No 07/06/24 10:35 than 60 minutes Number of Risk Factors 1 07/06/24 10:35 PONV Score Low Risk 07/06/24 10:35 Height & Weight Height & Weight: Anesthesia: Height & Weight Height 5 ft 3 in 03/21/24 07:50 Respiratory Assessment Respiratory Assessment - sales promotion coordinator: Respiratory Tract Infection Hx - sales promotion coordinator Hx Respiratory Tract Infection No 07/06/24 10:35 STOP Sleep Apnea STOP Sleep Apnea - sales promotion coordinator: STOP Sleep Apnea - sales promotion coordinator Hx Hypertension No 07/06/24 10:35 Hx Sleep Apnea Yes 07/06/24 10:35 CPAP No 07/06/24 10:35 BIPAP Yes 07/06/24 10:35 Do you snore loudly (louder than talking or can be heard Do you often feel tired/ fatigued/ sleepy during daytime? Has anyone observed you stop breathing during sleep? STOP Results Positive 07/06/24 10:35 QUESTION #5 FULL TEXT : Do you snore loudly (louder than talking or can be heard through closed doors)? 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 Specify any problems Hx of Preganancy in last 3 No 07/06/24 10:35 Months Nurse Filling Out Transfusion DSCHRIBER 07/06/24 10:35 & Questions: Date: 07/06/24 07/06/24 10:35 Time: 10:36 07/06/24 10:35 Patient unable to answer at this time (ie. confused, unrespo /Reproduction History /Reproductive History - sales promotion coordinator: /Reproductive Hx- sales promotion coordinator Hx Now No 07/06/24 10:35 Gestational Age (in weeks): EDC: Hx Hx Para Hx Section SAB No 07/06/24 10:35 [facility] Medical History (Updated 07/06/24 @ 10:43 by Taylor Shah) Wears glasses Arthritis Shortness of breath on exertion Leg cramps Change in bowel habit Generalized abdominal pain Heart murmur Dyspnea on exertion Post-menopausal High cholesterol Back pain Syncope Gastric reflux Smoker BiPAP (biphasic positive airway pressure) dependence Asthma History of echocardiogram History of stress test Cardiology follow-up encounter Hyperlipidemia Skin cancer Anxiety and depression Home Medications ?Medication ?Instructions ?Recorded ?Last Taken ?Type rosuvastatin 20 mg tablet 20 mg PO QHS 01/09/22 Unknown History famotidine 20 mg tablet (Pepcid) 20 mg PO DAILY 04/09/22 Unknown History albuterol sulfate 90 mcg/actuation 2 puff inhalation Q6H PRN 04/15/23 Unknown History aerosol inhaler shortness of breath or wheezing escitalopram oxalate 20 mg tablet 20 mg PO QDAY 11/09/23 Unknown History bupropion HCl 150 mg tablet,12 hr 150 mg PO BID 06/23/24 Unknown History sustained-release (Wellbutrin SR) escitalopram oxalate 10 mg tablet 10 mg PO QHS 06/23/24 Unknown History (Lexapro) hydrocortisone 2.5 % topical 1 applic topical BID-TID PRN 06/23/24 Unknown History ointment itching lactobacillus combination no.9 4 4,000 mmu cells PO QDAY 06/23/24 Unknown History billion cell capsule (Adult 50 Plus Probiotic) multivitamin (Daily Multi-Vitamin 1 tab PO DAILY 07/06/24 Unknown History tablet) Allergy/AdvReac Type Severity Reaction Status Date / Time penicillin G Allergy Mild Swelling Verified 07/06/24 10:32 Family History (Reviewed 03/21/24 @ 13:55 by Melissa Pickering MEDICAL STAFF SPECIALIST, MEDICAL STAFF SPECIALIST-C) Mother Breast cancer Hypertension Aunt Breast cancer Brother Hypertension Father Atrial fibrillation Surgical History (Updated 07/06/24 @ 10:43 by Taylor Shah) History of esophagogastroduodenoscopy (EGD) Hx of colonoscopy Cyst Removal from breast History of LAV Hx of appendectomy Social History (Reviewed 03/21/24 @ 13:55 by Melissa Pickerign MEDICAL STAFF SPECIALIST, MEDICAL STAFF SPECIALIST-C) Smoking Status: Current every day smoker tobacco type: cigarettes alcohol intake: never substance use type: does not use caffeine: Yes what type of physical activity do you participate in: walking frequency: 3-4 times per week seatbelt use: always do you feel safe at home: Yes additional social history: , Just moved back from the [facility] Audit: Pertinent Findings Pertinent Findings EKG Perinent findings: 12/01/2023. Normal sinus rhythm. Artifact otherwise normal. Stress test pertinent findings: 12/18/2023. No ischemia noted. No clinical angina noted. Echo (EF%) pertinent findings: 12/18/2023. Normal size function EF 70%. Consult pertinent findings: Cardiology 12/01/2023. Heart murmur. No significant valvular heart disease on echo 5 years ago. Now complaining of dyspnea recommend echocardiogram. Recommendation Anesthesia Recommendation Anesthesia recommendation: OPTIMIZED for anesthesia
[2024-07-11] VITALS (8 sets, daily range): BP systolic 89–121; BP diastolic 45–71; PULSE 71–82; RESP 16; TEMP 36.1–37; O2SAT 95–100; BMI 26.9
--- NOTE | 2024-07-11 07:51 | PRE.ANES_ITS ---
ASA Classification* ASA Classification ASA Classification: 2 Assessment & Plan Anesthesia* Anesthesia Assessment Anesthesia Assessment: Discussed sedation and/or anesthesia options, risks, benefits, and alternatives with patient/parents/legal guardian/POA. Questions invited. The patient/parents/legal guardian/POA seems to understand and agrees to proceed with anesthesia plan. Reviewed the physical assessment, medical history, allergy history and patient home medications list prior to surgery/procedure/anesthetic and documented any changes. Performed airway and anesthesia risk assessments. Anesthesia Type Anesthesia Type: MAC Anesthesia Focused Assessment* Airway Assessment Mouth opens: >3 cm Mallampati Score: II Focused Labs Anesthesia Preop lab: CBC WBC 7.8 K/mm3 (4.4-11.0) 06/08/24 10:48 06/08/24 RBC 4.42 M/mm3 (4.2-5.4) 06/08/24 10:48 06/08/24 Hgb 13.1 g/dL (12.0-15.0) 06/08/24 10:48 06/08/24 Hct 39.8 % (37-47) 06/08/24 10:48 06/08/24 Plt Count 338 K/mm3 (150-450) 06/08/24 10:48 06/08/24 CHEMISTRY Potassium 4.0 mmol/L (3.3-5.1) 06/08/24 10:48 06/08/24 Sodium 138 mmol/L (133-145) 06/08/24 10:48 06/08/24 BUN 14 mg/dL (4-19) 06/08/24 10:48 06/08/24 Creatinine 1.06 mg/dL (0.70-1.20) 06/08/24 10:48 06/08/24 Glucose 101 mg/dL (70-99) H 06/08/24 10:48 06/08/24 TSH 0.80 uIU/mL (0.358-3.74) 07/06/23 08:21 COAG Pre-Assessment Diagnosis/Proposed Procedure Planned Operative Procedure(s): EGD/CSCOPE Anesthesia History Anesthesia History - renal medicine specialist: Anesthesia History - renal medicine specialist Hx Hospitalization No 07/06/24 10:35 Any Problems With Anesthesia No 07/06/24 10:35 Cholinesterase deficiency No 07/06/24 10:35 You/Your Family Experience No 07/06/24 10:35 fever (hyperthermia) with Relationship Recent Exposure to Contagious No 01/14/22 09:01 Disease Does patient have nerve No 07/06/24 10:35 stimulator Patient instructed to have device shut off --Does patient have Pacemaker or ICD? When Was Last Pacemaker Check QUESTION #4 FULL TEXT: You/Your Family Experience fever (hyperthermia) with Anesthesia Last Oral Intake Last Oral intake: Last Oral Intake NPO since Meds taken in AM with sips of water? Meds patient instructed to take am of surgery PONV PONV - renal medicine specialist: PONV - renal medicine specialist Female Yes 07/06/24 10:35 HX of Motion Sickness No 07/06/24 10:35 HX of N/V After Surgery No 07/06/24 10:35 Non-Smoker No 07/06/24 10:35 Duration of Surgery greater No 07/06/24 10:35 than 60 minutes Number of Risk Factors 1 07/06/24 10:35 PONV Score Low Risk 07/06/24 10:35 Height & Weight Height & Weight: Anesthesia: Height & Weight Height 5 ft 3 in 03/21/24 07:50 Respiratory Assessment Respiratory Assessment - renal medicine specialist: Respiratory Tract Infection Hx - renal medicine specialist Hx Respiratory Tract Infection No 07/06/24 10:35 STOP Sleep Apnea STOP Sleep Apnea - renal medicine specialist: STOP Sleep Apnea - renal medicine specialist Hx Hypertension No 07/06/24 10:35 Hx Sleep Apnea Yes 07/06/24 10:35 CPAP No 07/06/24 10:35 BIPAP Yes 07/06/24 10:35 Do you snore loudly (louder than talking or can be heard Do you often feel tired/ fatigued/ sleepy during daytime? Has anyone observed you stop breathing during sleep? STOP Results Positive 07/06/24 10:35 QUESTION #5 FULL TEXT : Do you snore loudly (louder than talking or can be heard through closed doors)? 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 Specify any problems Hx of Preganancy in last 3 No 07/06/24 10:35 Months Nurse Filling Out Transfusion DSCHRIBER 07/06/24 10:35 & Questions: Date: 07/06/24 07/06/24 10:35 Time: 10:36 07/06/24 10:35 Patient unable to answer at this time (ie. confused, unrespo /Reproduction History /Reproductive History - renal medicine specialist: /Reproductive Hx- renal medicine specialist Hx Now No 07/06/24 10:35 Gestational Age (in weeks): EDC: Hx Hx Para Hx Section SAB No 07/06/24 10:35 PFSH Medical History Wears glasses Arthritis Shortness of breath on exertion Leg cramps Change in bowel habit Generalized abdominal pain Heart murmur Dyspnea on exertion Post-menopausal High cholesterol Back pain Syncope Gastric reflux Smoker BiPAP (biphasic positive airway pressure) dependence Asthma History of echocardiogram History of stress test Cardiology follow-up encounter Hyperlipidemia Skin cancer Anxiety and depression Home Medications ?Medication ?Instructions ?Recorded ?Last Taken ?Type rosuvastatin 20 mg tablet 20 mg PO QHS 01/09/22 Unknow n History famotidine 20 mg tablet (Pepcid) 20 mg PO DAILY Unknown History albuterol sulfate 90 mcg/actuation 2 puff inhalation Q 6H PRN 04/15/23 Unknown History aerosol inhaler shortness of breath or wheez ing escitalopram oxalate 20 mg tablet 20 mg PO QDAY Unknown History bupropion HCl 150 mg tablet,12 hr 150 mg PO BID Unknown History sustained-release (Wellbutrin SR) escitalopram oxalate 10 mg tablet 10 mg PO QHS 5 Unknown History (Lexapro) hydrocortisone 2.5 % topical 1 applic topical BID-TID PRN 06/23/24 Unknown History ointment itching lactobacillus combination no.9 4 4,000 mmu cells PO QD AY 06/23/24 Unknown History billion cell capsule (Adult 50 Plus Probiotic) multivitamin (Daily Multi-Vitamin 1 tab PO DAILY 07/06 Unknown History tablet) Allergy/AdvReac Type Severity Reaction Status Date / Time penicillin G Allergy Mild Swelling Verified 07/06/24 10:32 Family History Mother Breast cancer Hypertension Aunt Breast cancer Brother Hypertension Father Atrial fibrillation Surgical History History of esophagogastroduodenoscopy (EGD) Hx of colonoscopy Cyst Removal from breast History of LAVH Hx of appendectomy Social History Smoking Status: Current every day smoker tobacco type: cigarettes alcohol intake: never substance use type: does not use caffeine: Yes what type of physical activity do you participate in: walking frequency: 3-4 times per week seatbelt use: always do you feel safe at home: Yes additional social history: , [facility] Review of Systems (Anesthesia) ROS Narrative System reviewed and no additional complaints, except as documented.
--- NOTE | 2024-07-11 09:45 | EGD_PTH ---
PATIENT: MARY AGUILERA LOC: EN U#:[id number] AGE/SX: 63/F ROOM: RE07/11/[address]: Dr. Blanco Ayala MD : 1960 BED: DIS: 07/11/2024 SPEC #: [id number] RECD: 07/11/24 14:33 STATUS: ALLYSSA HEATH #: [id number] KAREY: 07/11/24 09:[address]: Blanco Ayala DEPT: SURGICAL PATHOLOGY RECD BY: Jude Toussaint ENTERED: 07/11/24 14:34 SP TYPE: EGD BIOPSY OTHR DR: Marsha Mendez, [facility], PRODUCTION DIRECTOR-C Tissues: A - Duodenum, NOS B - Gastric mucous membrane C - Gastric mucous membrane D - COLON BIOPSY E - Esophagus, NOS F - Ascending colon G - Transverse colon H - Rectum, NOS Procedures: Immunohistochemical Stains Surgery Specimen Level IV HEADER OPERATION: Colonoscopy with polypectomy and hemostasis, EGD biopsy PRE-OP DIAGNOSIS: Abdominal discomfort, epigastric, GERD, diverticulosis, polyps TISSUE SUBMITTED: A- Duodenal bulb mucosa biopsy, B- Antrum biopsy, C- Gastric body biopsy, D- Linear erosion greater curvature biopsy, E- Mid esophageal plaque biopsy, F- Ascending colon polyp, G- Transverse colon polyp, H- Rectal polyp biopsy MICROSCOPIC DIAGNOSIS A. Small bowel, duodenal bulb, biopsy: * Pyloroduodenal mucosa with prominent Danny's glands and villous blunting B. Stomach, antrum, biopsy: * Antral mucosa with mild chronic inflammation * No Helicobacter pylori organisms identified on H&E or immunostained sections C. Stomach, gastric body, polyp, biopsy: * Polypoid oxyntic mucosa with mild chronic inflammation D. Stomach, greater curvature, erosion, biopsy: * Oxyntic mucosa with mild chronic inflammation * No morphologic evidence of Helicobacter pylori organisms E. Midesophagus, plaque, biopsy: * Benign squamous epithelium * Oxyntic mucosa with mild chronic inflammation, negative for goblet cells F. Ascending colon, polyp, biopsy: * Tubular adenoma G. Transverse colon, polyp, biopsy: * Tubular adenoma H. Rectum, polyp, biopsy: * Hyperplastic polyp MICROSCOPIC DESCRIPTION Slides are reviewed. These tests were developed and their performance characteristics determined by [facility]. They may not have been cleared or approved by the U.S. Food and Drug Administration. The FDA has determined that such clearance or approval is not necessary. The above immunohistochemical/dualISH markers are ordered and reviewed by the Pathologist. GROSS DESCRIPTION A. Received in formalin in a container labeled with the patient's name, date of , and duodenal bulb mucosa biopsy is a 0.3 x 0.3 x 0.3 cm fragment of estevez-pink mucosal tissue. Submitted in toto in A1. B. Received in formalin in a container labeled with the patient's name, date of , and antrum biopsy is a 0.4 x 0.4 x 0.3 cm fragment of estevez-pink mucosal tissue. Submitted in toto in B1. C. Received in formalin in a container labeled with the patient's name, date of , and gastric body polyp biopsy are 2 estevez-pink fragments of mucosal tissue measuring 0.2 x 0.2 x 0.2 cm and 0.4 x 0.3 x 0.2 cm. Submitted in toto in C1. D. Received in formalin in a container labeled with the patient's name, date of , and linear erosion greater curvature biopsy are 2 estevez-pink fragments of mucosal tissue, each measuring 0.2 x 0.2 x 0.2 cm. Submitted in toto in D1. E. Received in formalin in a container labeled with the patient's name, date of , and mid esophageal plaque biopsy are multiple estevez-pink fragments of mucosal tissue measuring 0.6 x 0.5 x 0.2 cm in aggregate. Submitted in toto in E1. F. Received in formalin in a container labeled with the patient's name, date of , and ascending colon polyp are multiple estevez-pink fragments of mucosal tissue measuring 1.3 x 1.0 x 0.3 cm in aggregate. Submitted in toto in F1. G. Received in formalin in a container labeled with the patient's name, date of , and transverse colon polyp are 2 estevez-pink fragments of mucosal tissue, each measuring 0.2 x 0.2 x 0.2 cm. Submitted in toto in G1. H. Received in formalin in a container labeled with the patient's name, date of , and rectal polyp biopsy are 2 estevez-pink fragments of mucosal tissue measuring 0.2 x 0.2 x 0.2 cm and 0.4 x 0.2 x 0.2 cm. Submitted in toto in H1. [facility] 07/12/2024 CPT:66900q7,58099
--- NOTE | 2024-07-11 10:06 | HP.PCM_ITS ---
History and Physical Patient is 63-year-old female referred from Dr. Agosto of the [facility]. She complains of abdominal discomfort that began February 2024. She states that initially she would characterize this as a crampy abdominal pain of her upper abdomen but this is now become just more of a queasy feeling. She notes that it is worse with activity or with an empty stomach. She has previously been evaluated with an EGD in the last couple of years by Dr. Pyle but is uncertain of the results of the study. Additionally, she hop es to complete a update screening colonoscopy after her last scope in 2018 revealed some evidence of diverticulosis. She denies any bright red blood per rectum or concerns from her lower GI tract. Lastly she confirms there are no significant GI diagnoses from her family history. Assessment & Plan Assessment/Plan (1) Abdominal discomfort, epigastric: (2) GERD (gastroesophageal reflux disease): (3) Diverticulosis: PLAN: Plan Patient is 63-year-old female with rather nonspecific upper abdominal pain and queasiness who presents for repeat EGD as well as repeat screening colonoscopy. Her abdominal exam is benign today. She completed prep for today's procedure and output is slightly brown so she will undergo an enema anticipation of the procedure. Otherwise we will plan to proceed to the endoscopy suite for upper and lower endoscopy as planned. Patient is informed that if biopsies are completed during today's procedure she is asked to refrain from any use of ibuprofen or aspirin products for the next 2 days. She states she has already taken this step on direction from her PCP given her abdominal complaints. Blanco Ayala MD General Surgery Endocrine Surgery Pager: [facility] [address] [place] [address], [address] [place] [address] Office: [phone]
--- NOTE | 2024-07-11 11:41 | PCM.POST.ANE ---
Anesthesia: Postop Eval I Current Vital Signs Temperature: 97 F Pulse Rate: 74 Blood Pressure: 100/60 Respiratory Rate: 16 Pulse Ox: 100 Oxygen Delivery Method: Room Air Assessment Airway patent: Yes Spontaneous unlabored respirations: Yes Mental status: Awake nausea: No Vomiting: No Anesthesia Complication: No Fluid Hydration Crystalloid volume administer (ml): 120 Total IV fluid infused: 120 Progress Note Anesthesia document: Postop Eval 1 completed: Yes
--- NOTE | 2024-07-11 11:42 | OP.CCLET_ITS ---
07/11/2024 Marsha Mendez [facility] Re : Upper GI endoscopy procedure for Flakita Albarado Andrea This procedure was performed on Thursday, July 11, 2024. My impressions and recommendations are as follows: Impressions : - Nodular mucosa in the duodenal bulb. Biopsied. - Erythematous mucosa in the antrum. Biopsied. - Erythematous mucosa in the gastric body. - One gastric polyp. Biopsied. - Z-line regular, 38 cm from the incisors. No specimens collected. - A single plaque in the middle third of the esophagus. Biopsied. Recommendations : - Discharge patient to home (via wheelchair). - Soft diet today. - Continue present medications. - No aspirin, ibuprofen, naproxen, or other non-steroidal anti-inflammatory drugs for 2 days after biopsy. - Await pathology results. - Telephone my office for pathology results in 1 week. My findings are described in the full procedure note, which is enclosed. If I can be of further assistance, please feel free to contact me at Doctor phone number(s): , Work: . Sincerely, Blanco Ayala MD 07/11/2024 11:41:59 AM This report has been signed electronically.
--- NOTE | 2024-07-11 11:42 | OP.EGD_ITS ---
Patient Name: Flakita Payton Procedure Date: 07/11/2024 10:18 AM Date of : 1960 Age: 63 Procedure: Upper GI endoscopy Indications: Epigastric abdominal pain, Abdominal bloating, Nausea Providers: Blanco Ayala MD Referring MD: Blanco Ayala MD Medicines: See the Anesthesia note for documentation of the administered medications Patient Profile: Patient has symptoms of acute abdominal cramping, acute epigastric abdominal pain and acute nausea. Complications: No immediate complications. Estimated blood loss: Minimal. Procedure: Pre-Anesthesia Assessment: - The heart rate, respiratory rate, oxygen saturations, blood pressure, adequacy of pulmonary ventilation, and response to care were monitored throughout the procedure. After obtaining informed consent, the endoscope was passed under direct vision. Throughout the procedure, the patient's blood pressure, pulse, and oxygen saturations were monitored continuously. The Endoscope was introduced through the mouth, and advanced to the second part of duodenum. The upper GI endoscopy was accomplished without difficulty. The patient tolerated the procedure well. Scope In: 10:30:15 AM Scope Out: 10:44:23 AM Total Procedure Duration Time 0 hours 14 minutes 8 seconds Findings: Localized nodular mucosa was found in the duodenal bulb. Biopsies were taken with a cold forceps for histology. Estimated blood loss was minimal. Localized mildly erythematous mucosa without bleeding was found in the gastric antrum. Biopsies were taken with a cold forceps for histology. Estimated blood loss was minimal. Localized mildly erythematous mucosa without bleeding was found in the gastric body. Estimated blood loss was minimal. One 3 mm semi-sessile polyp with no bleeding and no stigmata of recent bleeding was found in the gastric body. Biopsies were taken with a cold forceps for histology. Estimated blood loss was minimal. The Z-line was regular and was found 38 cm from the incisors. No biopsies or other specimens were collected for this exam. A single 3 mm plaque was found in the middle third of the esophagus. Biopsies were taken with a cold forceps for histology. Estimated blood loss was minimal. Impression: - Nodular mucosa in the duodenal bulb. Biopsied. - Erythematous mucosa in the antrum. Biopsied. - Erythematous mucosa in the gastric body. - One gastric polyp. Biopsied. - Z-line regular, 38 cm from the incisors. No specimens collected. - A single plaque in the middle third of the esophagus. Biopsied. Recommendation: - Discharge patient to home (via wheelchair). - Soft diet today. - Continue present medications. - No aspirin, ibuprofen, naproxen, or other non-steroidal anti-inflammatory drugs for 2 days after biopsy. - Await pathology results. - Telephone my office for pathology results in 1 week. Procedure Code(s): --- Professional --- 29035, Esophagogastroduodenoscopy, flexible, transoral; with biopsy, single or multiple Diagnosis Code(s): --- Professional --- K31.89, Other diseases of stomach and duodenum K31.7, Polyp of stomach and duodenum K22.89, Other specified disease of esophagus R10.13, Epigastric pain R14.0, Abdominal distension (gaseous) R11.0, Nausea CPT copyright 2021 [employer]. All rights reserved. The codes documented in this report are preliminary and upon certified medical records coder review may be revised to meet current compliance requirements. Blanco Ayala MD 07/11/2024 11:41:59 AM This report has been signed electronically. Number of Addenda: 0 Note Initiated On: 07/11/2024 10:18 AM
--- NOTE | 2024-07-11 12:35 | PCM.POSTANE2 ---
Anesthesia Postop Eval I Sum Postop Eval Completion status Anesthesia document: Postop Eval 1 completed: Yes Anesthesia Postop Eval I Summary Anesthesia Postop Eval I Summary: Anesthesia Postop Eval I: Assessment Summary Airway patent Yes 07/11/24 11:41 [email or web address] Spontaneous unlabored Yes 07/11/24 11:41 [email or web address] respirations Mental status Awake 07/11/24 11:41 [email or web address] nausea No 07/11/24 11:41 [email or web address] Vomiting No 07/11/24 11:41 [email or web address] Anesthesia Postop Eval I: Fluid Summary Crystalloid volume administer 120 07/11/24 11:41 [email or web address] (ml) Colloids volume administered ( ml) Blood Product volume administered (ml) Total IV fluid infused 120 07/11/24 11:41 [email or web address] Anesthesia Postop Eval I: Summary Notes Anesthesia Complication No 07/11/24 11:41 [email or web address] Anesthesia Complication Comment: Post-operative progress note Anesthesia: Postop Eval II Evaluation Mental status: Awake Pain Level: 0 nausea: No Vomiting: No
--- NOTE | 2024-07-11 12:41 | OP.COLON_ITS ---
Patient Name: Flakita Payton Procedure Date: 07/11/2024 10:46 AM Date of : 1960 Age: 63 Procedure: Colonoscopy Indications: Generalized abdominal pain Providers: Blanco Ayala MD Referring MD: Blanco Ayala MD Medicines: See the Anesthesia note for documentation of the administered medications Patient Profile: Patient has symptoms of acute abdominal cramping, acute epigastric abdominal pain and acute nausea. Last Colonoscopy: 7years ago. Complications: No immediate complications. Estimated blood loss: Minimal. Procedure: Pre-Anesthesia Assessment: - The heart rate, respiratory rate, oxygen saturations, blood pressure, adequacy of pulmonary ventilation, and response to care were monitored throughout the procedure. - The heart rate, respiratory rate, oxygen saturations, blood pressure, adequacy of pulmonary ventilation, and response to care were monitored throughout the procedure. After I obtained informed consent, the scope was passed under direct vision. Throughout the procedure, the patient's blood pressure, pulse, and oxygen saturations were monitored continuously. The colonoscope was introduced through the anus and advanced to the cecum, identified by transillumination. The colonoscopy was somewhat difficult due to a tortuous colon. Successful completion of the procedure was aided by using scope torsion. The patient tolerated the procedure well. The quality of the bowel preparation was adequate to identify polyps greater than 5 mm in size. Scope In: 10:47:09 AM Scope Withdrawal Time 0 hours 28 minutes 33 seconds Scope Out: 11:29:00 AM Total Procedure Duration Time 0 hours 41 minutes 51 seconds Findings: A 15 mm, non-bleeding polyp was found in the ascending colon. The polyp was semi-sessile. The polyp was removed with a hot snare. Resection and retrieval were complete. Estimated blood loss was minimal. A 5 mm, non-bleeding polyp was found in the proximal transverse colon. The polyp was semi-sessile. The polyp was removed with a hot snare. Resection and retrieval were complete. Estimated blood loss: none. Four sessile, non-bleeding polyps were found in the rectum. The polyps were 3 to 4 mm in size. Biopsies were taken with a cold forceps for histology. Estimated blood loss was minimal. The entire examined colon appeared normal on direct and retroflexion views. Impression: - One 15 mm, non-bleeding polyp in the ascending colon, removed with a hot snare. Resected and retrieved. - One 5 mm, non-bleeding polyp in the proximal transverse colon, removed with a hot snare. Resected and retrieved. - Four 3 to 4 mm, non-bleeding polyps in the rectum. Biopsied. - The entire examined colon is normal on direct and retroflexion views. Recommendation: - Discharge patient to home (via wheelchair). - Resume previous diet today. - No aspirin, ibuprofen, naproxen, or other non-steroidal anti-inflammatory drugs for 2 days after biopsy. - Await pathology results. - Repeat colonoscopy date to be determined after pending pathology results are reviewed for surveillance based on pathology results. - Telephone my office for pathology results in 1 week. Procedure Code(s): --- Professional --- 94726, Colonoscopy, flexible; with removal of tumor(s), polyp(s), or other lesion(s) by snare technique 13810, 59, Colonoscopy, flexible; with biopsy, single or multiple Diagnosis Code(s): --- Professional --- D12.2, Benign neoplasm of ascending colon D12.3, Benign neoplasm of transverse colon (hepatic flexure or splenic flexure) D12.8, Benign neoplasm of rectum R10.84, Generalized abdominal pain CPT copyright 2021 [employer]. All rights reserved. The codes documented in this report are preliminary and upon human resources office manager review may be revised to meet current compliance requirements. Blanco Ayala MD 07/11/2024 12:41:10 PM This report has been signed electronically. Number of Addenda: 0 Note Initiated On: 07/11/2024 10:46 AM
--- NOTE | 2024-07-11 12:42 | OP.CCLET_ITS ---
07/11/2024 Marsha Mendez [facility], [facility] Re : Colonoscopy procedure for Flakita Mendez This procedure was performed on Thursday, July 11, 2024. My impressions and recommendations are as follows: Impressions : - One 15 mm, non-bleeding polyp in the ascending colon, removed with a hot snare. Resected and retrieved. - One 5 mm, non-bleeding polyp in the proximal transverse colon, removed with a hot snare. Resected and retrieved. - Four 3 to 4 mm, non-bleeding polyps in the rectum. Biopsied. - The entire examined colon is normal on direct and retroflexion views. Recommendations : - Discharge patient to home (via wheelchair). - Resume previous diet today. - No aspirin, ibuprofen, naproxen, or other non-steroidal anti-inflammatory drugs for 2 days after biopsy. - Await pathology results. - Repeat colonoscopy date to be determined after pending pathology results are reviewed for surveillance based on pathology results. - Telephone my office for pathology results in 1 week. My findings are described in the full procedure note, which is enclosed. If I can be of further assistance, please feel free to contact me at Doctor phone number(s): , Work: . Sincerely, Blanco Ayala MD 07/11/2024 12:41:10 PM This report has been signed electronically.
== END 2024-07-11 12:46 | disposition home or self-care (01) ==
LOC: EN 07:37 → AC 09:14
PROVIDERS: PCP Nurse Practitioner Family; Referring Provider Surgery; Visit Provider Surgery
PROC: 0DJD8ZZ Inspection of Lower Intestinal Tract, Via Natural or Artificial Opening Endoscopic (ICD-10-PCS; CPT 45378; principal; 2024-07-11 09:40)
DX: Z12.11 Encounter for screening for malignant neoplasm of colon (principal); D12.2 Benign neoplasm of ascending colon; K22.89 Other specified disease of esophagus; K21.9 Gastro-esophageal reflux disease without esophagitis; K57.90 Diverticulosis of intestine, part unspecified, without perforation or abscess without bleeding; K31.7 Polyp of stomach and duodenum; K29.50 Unspecified chronic gastritis without bleeding; D12.3 Benign neoplasm of transverse colon; K62.1 Rectal polyp; F17.210 Nicotine dependence, cigarettes, uncomplicated; E78.00 Pure hypercholesterolemia, unspecified; J45.909 Unspecified asthma, uncomplicated
CPT/HCPCS: 45380; 45385; 43239; 88305; 88342; C1889; A4216; J2405

== ENCOUNTER → 2024-07-19 | Outpatient (CLI) | payer MEDICARE, SELFPAY ==
[2024-07-19 12:50] LABS: Absolute Lymphocyte Count 1.91 X10^3/uL (0.83-4.51); Absolute Neutrophil Count 5.9 X10^3/uL (2.0-7.7); Basophil# 0.06 X10^3/uL; Basophil% 0.7 % (0-1); Eosinophil# 0.25 X10^3/uL; Eosinophils% 2.8 % (0-5); Hematocrit 39.6 % (37-47); Lymphocyte # 1.91 X10^3/ul (0.83-4.51); Lymphocyte % 21.3 % (19-41); Mean Corp Hgb Conc 32.8 g/dL (32-36); Mean Corpuscular Hgb 29.3 pg (27.0-32.0); Mean Corpuscular Volume 89.2 fL (81-99); Mean Platelet Vol. 10.2 fl (6.2-12.0); Monocyte# 0.84 X10^3/uL; Monocyte% 9.4 % (0-10); NRBC Flagged by Analyzer 0 % (0-5); Neutrophil # 5.89 X10^3/uL (2.7-7.7); Neutrophil % 65.6 % (47-70); Platelet Count 321 K/mm3 (150-450); RBC Distribution Width CV 13.2 % (11.6-14.6); RBC Distribution Width SD 43.7 fl (35.1-43.9); Red Blood Count 4.44 M/mm3 (4.2-5.4)
[2024-07-19 13:43] LABS: ALB/GLOB Ratio 1.4 RATIO (0.9-2.4); AST(SGOT) 22 U/L (<=31); Alanine Aminotransfer ALT/SGPT 16 U/L (<=34); Albumin, Serum 4.4 g/dL (3.4-4.8); Alkaline Phosphatase 79 U/L (35-104); Anion Gap 11 (5-15); BUN 14 mg/dL (4-19); BUN/Creat Ratio 15.1 RATIO (10-20); Calcium,Total 9.5 mg/dL (7.6-11.0); Carbon Dioxide 22.5 mmol/L (21.0-32.0); Chloride 105 mmol/L (98-108); Cholesterol 148 mg/dL (<=200); Creatinine, Serum 0.96 mg/dL (0.70-1.20); EST Glomerular Filtration Rate 66 (>60); Globulin 3.1 g/dL (2.2-4.2); Glucose 95 mg/dL (70-99); High Density Lipoprotein 46 mg/dL; Low Density Lipoprotein Calc. 88 mg/dL; Magnesium 2.3 mg/dL (1.5-2.2); Potassium 4.2 mmol/L (3.3-5.1); Protein, Total 7.5 g/dL (5.9-8.4); Sodium Level 139 mmol/L (133-145); Thyroid Stim Hormone (TSH) 0.683 uIU/mL (0.300-4.200); Total Bilirubin 0.57 mg/dL (0.00-1.30); Triglycerides 72 mg/dL; Very Low Density Lipoprotein 14 mg/dL (5-40); Vitamin D,25 Hydroxy 44.1 ng/mL (30-100); cholesterol:hdl ratio screen 3.23
== END | disposition home or self-care (01) ==
LOC: VSLAB 09:15
PROVIDERS: PCP Nurse Practitioner Family; Visit Provider Nurse Practitioner Family
DX: M79.10 Myalgia, unspecified site (principal); E78.5 Hyperlipidemia, unspecified; E55.9 Vitamin D deficiency, unspecified
CPT/HCPCS: 36415; 80053; 80061; 82306; 83735; 84443; 85025

== ENCOUNTER → 2024-08-05 | Outpatient (CLI) | payer MEDICARE, SELFPAY | END | disposition home or self-care (01) | PROVIDERS: PCP Nurse Practitioner Family; Referring Provider Nurse Practitioner Acute Care; Visit Provider Nurse Practitioner Acute Care | DX: G47.33 Obstructive sleep apnea (adult) (pediatric) (principal) | CPT/HCPCS: 95810 ==

== ENCOUNTER → 2024-09-27 | Outpatient (CLI) | payer MEDICARE, SELFPAY ==
--- NOTE | 2024-09-27 14:57 | CT_ITS ---
PROCEDURE: CHEST WITHOUT CONTRAST 09/27/2024 REASON FOR EXAM: 8 MM NODULE IN SMOKER TECHNIQUE: Chest CT without contrast. Coronal and Sagittal reconstruction series were provided. One or more dose reduction techniques were used (e.g., Automated exposure control, adjustment of the mA and/or kV according to patient size, use of iterative reconstruction technique RADIATION DOSE SUMMARY: CTDlvol: 7.37 mGy DLP: 243.23 mGycm COMPARISON: 06/20/2024. FINDINGS: Normal unenhanced main pulmonary artery and right and left pulmonary arteries. Normal bilateral peripheral pulmonary arteries. Normal thoracic aorta and visualized great vessels. There is no demonstrated aortic aneurysm. Normal heart and pericardium. The coronary arteries are not calcified. Multiple prominent mediastinal lymph nodes are now seen. There is fullness of the left hilum however evaluation for lymphadenopathy is not possible in view of the absence of contrast administration. Normal visualized trachea and bronchi. The lungs are well expanded. There has been interval increase in the size of the previously described left lower lobe spiculated nodule now measuring 2.0 x 1.6 cm in axial dimension ( previous measurement 1.1 x 1.4 cm). Linear atelectasis is seen in the right lower lobe. Normal pleura. Normal chest wall structures. Normal osseous structures. Prominent xiphoid process of the sternum is noted which bulges anteriorly. Normal visualized upper abdomen. CT/Chest without Contrast IMPRESSION: Interval increase in the size of the left lower lobe nodule with newly seen med iastinal lymph adenopathy. Assessment for left hilar lymphadenopathy is not possible in view of the absen ce of contrast administration. A PET/CT scan is recommended. Reading Location: [facility] [address]
== END | disposition home or self-care (01) ==
PROVIDERS: PCP Nurse Practitioner Family; Referring Provider Nurse Practitioner Acute Care; Visit Provider Nurse Practitioner Acute Care
DX: R91.1 Solitary pulmonary nodule (principal)
CPT/HCPCS: 71250

== ENCOUNTER → 2024-10-06 | Outpatient (CLI) | payer MEDICARE, SELFPAY ==
[2024-10-06 13:56] LABS: Platelet Count 346 K/mm3 (150-450)
[2024-10-06 14:06] LABS: Partial Thromboplast Time 24.0 Seconds (24.1-36.2); Prothrombin Time (Protime)PT. 13.6 SECONDS (11.7-14.9)
== END | disposition home or self-care (01) ==
LOC: PAVLAB 13:43
PROVIDERS: PCP Nurse Practitioner Family; Referring Provider Nurse Practitioner Acute Care; Visit Provider Nurse Practitioner Acute Care
DX: I48.91 Unspecified atrial fibrillation (principal); R06.09 Other forms of dyspnea
CPT/HCPCS: 36415; 85049; 85610; 85730

== ENCOUNTER 2024-11-03 13:17 | Inpatient (IN) | payer MEDICARE, SELFPAY ==
[2024-11-03] VITALS (12 sets, daily range): BP systolic 128–147; BP diastolic 60–73; PULSE 61–71; RESP 12–20; TEMP 36.1–37.2; O2SAT 92–96; BMI 27.7; BMI 26.2
--- NOTE | 2024-11-03 13:47 | CT_ITS ---
PROCEDURE: CTA CHEST W/WO CONTRAST 11/03/2024 REASON FOR EXAM: LUNG MASS, HYPOXIA, HEMOPTYSIS TECHNIQUE: CTA CHEST W/WO CONTRAST Multiplanar Sagittal and Coronal images were obtained. CONTRAST: Isovue 370 VOLUME: 99 mL One or more dose reduction techniques were used (e.g., Automated exposure control, adjustment of the mA and/or kV according to patient size, use of iterative reconstruction technique). RADIATION DOSE SUMMARY: CTDlvol: 6 mGy DLP: 205 mGycm COMPARISON: 09/28/2024 CT. FINDINGS: The peripheral soft tissues are unremarkable. No acute osseous abnormalities. The upper abdomen is unremarkable. Throughout all lobes are lobar, segmental, and subsegmental filling defects compatible with pulmonary emboli. Flattening of the interventricular septum possibly representing heart strain. Wedge-shaped filling defects within the bilateral lower lobes which may represent infarctions. Previously visualized left lower lobe nodule is obscured by a likely region of infarction. Unchanged mediastinal and perihilar lymphadenopathy. CT/CTA Chest W/WO Contrast IMPRESSION: Bilateral pulmonary emboli with evidence of heart strain. Bilateral lower lobe pulmonary infarctions. Left lower lobe nodule is obscured due to infarction. Stable lymphadenopathy. Critical results communicated to Dr. Guerrero at 3 p.m.. Reading Location: [id number]
--- NOTE | 2024-11-03 13:47 | EX.ED.DYSGE1 ---
HPI History of Present Illness Chief Complaint: Shortness of Breath Detail of Chief Complaint: Dyspnea, hypoxia hemoptysis after lung biopsy Informant: patient and other (Spoke with radiologist. Post procedure x-ray was obtained there is no evidence of pneumothorax. This was reviewed by me. He states the mass noted on the left side of her chest is suspicious for cancer.) Onset/Context/Timing Onset: Hours Context: Sudden Onset Timing: Continuous (Patient also requiring oxygen. She is not normally on oxygen.) Quality: Status post lung biopsy patient developed hypoxia and hemoptysis. What Location: Pulmonary Current Severity: Mild Maximum Severity: Moderate Worsened by: Status post procedure. Radiologist uncertain what may have caused this. Relieved by: Nothing Associated Symptoms Associated Symptoms: Hypoxia, left-sided pleuritic pain hemoptysis Narrative Narrative: Patient is a 64-year-old woman. She had appointment for outpatient lung biopsy. Lung biopsy was performed at [facility]. Post procedure patient developed hypoxia and hemoptysis. She has no history of hemoptysis. She is a smoker half pack per day since she was a teenager. The lesion that is noted on the left is suspicious for malignancy. She denies leg pain, swelling discoloration. She denies history of VTE. She is on no anticoagulant or antithrombotic. Patient had intentional weight loss. Patient denies night sweats. Prior similar symptoms: No Recent Illness/Hospitalization: No PFSH PFSH Medical History (Reviewed 10/06/24 @ 13:25 by Melissa Pickering TAKE OUT WAITER/WAITRESS, TAKE OUT WAITER/WAITRESS-C) Wears glasses Arthritis Shortness of breath on exertion Leg cramps Change in bowel habit Generalized abdominal pain Heart murmur Dyspnea on exertion Post-menopausal High cholesterol Back pain Syncope Gastric reflux Smoker BiPAP (biphasic positive airway pressure) dependence Asthma History of echocardiogram History of stress test Cardiology follow-up encounter Hyperlipidemia Skin cancer Anxiety and depression Home Medications ?Medication ?Instructions ?Recorded ?Last Taken ?Type albuterol sulfate 90 mcg/actuation 2 puff inhalation Q6H PRN 04/15/23 Unknown History aerosol inhaler shortness of breath or wheezing bupropion HCl 150 mg tablet,12 hr 150 mg PO BID 06/23/24 Unknown History sustained-release (Wellbutrin SR) escitalopram oxalate 10 mg tablet 10 mg PO QHS 06/23/24 Unknown History (Lexapro) lactobacillus combination no.9 4 4,000 mmu cells PO QDAY 06/23/24 Unknown History billion cell capsule (Adult 50 Plus Probiotic) multivitamin (Daily Multi-Vitamin 1 tab PO DAILY 07/06/24 Unknown History tablet) cholecalciferol (vitamin D3) 125 125 mcg PO QDAY 07/20/24 Unknown History mcg (5,000 unit) capsule pantoprazole 20 mg tablet,delayed 20 mg PO QDAY 07/26/24 Unknown History release (Protonix) Oral appliance #1 ea 08/16/24 Unknown Rx escitalopram oxalate 20 mg tablet 20 mg PO QDAY 10/06/24 Unknown History (Lexapro) rosuvastatin 20 mg tablet 20 mg PO DAILY 10/06/24 Unknown History Allergy/AdvReac Type Severity Reaction Status Date / Time Penicillins Allergy Intermediate Hives Verified 11/03/24 13:18 Family History Mother Breast cancer Hypertension Aunt Breast cancer Brother Hypertension Father Atrial fibrillation Surgical History History of esophagogastroduodenoscopy (EGD) Hx of colonoscopy Cyst Removal from breast History of LAV Hx of appendectomy Social History Smoking Status: Current every day smoker tobacco type: cigarettes alcohol intake: never substance use type: does not use caffeine: Yes what type of physical activity do you participate in: walking frequency: 3-4 times per week seatbelt use: always do you feel safe at home: Yes additional social history: , Just moved back from the [facility] ED Constitutional Constitutional ED: Reports weight loss; Denies chills, fever(s), subjective or sweats Eyes Eyes: Denies blurry vision or change in vision ENT ENT ED: Denies ear pain, rhinorrhea or sore throat Cardiovascular Cardiovascular: Reports chest pain; Denies palpitations or racing heartbeat Respiratory/Chest Respiratory/Chest: Reports cough, dyspnea and other Details: Hemoptysis Gastrointestinal Gastrointestinal: Denies abdominal pain, nausea or vomiting Genitourinary Genitourinary ED: Denies hematuria Musculoskeletal Musculoskeletal: Denies arthralgias, back pain or myalgias Integumentary Denies rash Neurologic Neurologic: Denies paresthesias or weakness Hematologic/Lymphatic Hematologic/Lymphatic: Reports systems reviewed and no addt'l complaints, except as documented; Denies easy bleeding or easy bruising EXAM Physical Exam Const Vital Signs: 11/03/24 13:18 11/03/24 13:22 11/03/24 13:23 Temperature 97.9 F 97.9 F Temperature Source Oral Oral Pulse Rate 61 67 Respiratory Rate 12 14 Respiratory Effort Normal Respiratory Depth Normal Respiratory Pattern Normal Blood Pressure 128/69 H 128/69 H Blood Pressure Mean 88 88 Pulse Ox 96 94 Oxygen Delivery Method Nasal Cannula Room Air Room Air Oxygen Flow Rate (L/min) 2 11/03/24 14:29 11/03/24 14:32 Temperature 98.6 F Temperature Source Oral Pulse Rate 63 63 Respiratory Rate 12 12 Respiratory Effort Respiratory Depth Respiratory Pattern Blood Pressure 133/68 H 133/68 H Blood Pressure Mean 89 89 Pulse Ox 93 94 Oxygen Delivery Method Nasal Cannula Nasal Cannula Oxygen Flow Rate (L/min) 2 2 Positive well nourished and well developed Constitutional Narrative: On oxygen patient appears in no distress. Patient blood pressure slightly elevated. General Appearance ED: well developed and NAD; Negative for cyanotic, diaphoretic or pallor HEENT Reports moist mucous membranes HEENT Narrative: Head is atraumatic normocephalic. Ears normal. Nares patent. Eyes PERRL and EOMs intact bilaterally General Eye ED: Negative for pale conjunctiva or scleral icterus Neck no lymphadenopathy, supple and no JVD Chest Wall inspection of chest normal and palpation of chest normal Resp normal respiratory effort and No clear to auscultation bilaterally Auscultation: rales bilateral lower Cardio regular rate, regular rhythm, S1 normal heart sound, S2 normal heart sound and no murmurs GI normal to inspection, nondistended, normoactive bowel sounds, non-tender, non-distended and no masses; Negative for hepatosplenomegaly Palpation: soft Back/Spine no CVA tenderness Extremity normal to inspection Extremity Narrative: There is no asymmetry, swelling, discoloration, leg vein distention, palpable cords or tenderness along the distribution of the deep venous system. General Extremety ED: Negative for edema or tenderness General Extremity: Negative for edema Neuro oriented x3 and CN's II-XII intact bilaterally Sensorium / Orientation: alert Psych mental status grossly normal Skin no rashes or lesions noted, no wounds and skin turgor normal General Skin Exam: Negative for jaundice or pallor MDM MDM MDM Narrative Medical decision making narrative: With suspicious lesion hypoxia hemoptysis need to evaluate for pulmonary embolus. Since she had a post procedure chest x-ray does not show pneumothorax will obtain a CTA. Blood work was obtained to assess for H&H, white count differential, renal function. Lab Data Attestation: I reviewed the patient's lab results. Lab results narrative: White count is slightly elevated 12.6 with minimal shift. H&H is Harvey 0.6 and 35.2. H&H essentially unchanged from earlier today. Patient had no recent electrolyte panel or BMP. Results pending. A troponin and BNP was added after discussion with hospitalist. Labs: Laboratory Results - last 24 hr 11/03/24 14:00 WBC 12.6 H RBC 4.08 L Hgb 11.6 L Hct 35.2 L MCV 86.3 MCH 28.4 MCHC 33.0 RDW Std Deviation 43.3 RDW Coeff of Millie 13.7 Plt Count 282 MPV 10.5 Immature Gran % (Auto) 0.400 Neut % (Auto) 70.2 H Lymph % (Auto) 16.3 L Motley % (Auto) 8.6 Eos % (Auto) 3.7 Baso % (Auto) 0.8 Absolute Neuts (auto) 8.8 H Absolute Lymphs (auto) 2.05 Nucleated RBC % 0 Radiography Diagnostic Testing: CT reveals multiple pulmonary emboli bilaterally. There is no obvious cor pulmonale. Will add BNP and troponin. Since patient had recent biopsy we will anticoag with heparin especially with her hemoptysis in case he gets worse. Management Discussion w/another healthcare provider: Hospitalist (Spoke with hospitalist Dr. Maritza Modi. Admit PCU. Discussed apixaban versus heparin. In light of patient's history of recent procedure hemoptysis requested heparin. Bolus and drip was started in the emergency department.) and Other (Spoke to radiologist regarding need for CT without contrast versus CTA. After discussion with radiologist determine CTA would give us all the information and rule out PE if negative.) Discharge Plan Triage Chief Complaint: Shortness of Breath ED Provider: Italo Guerrero Dx/Rx/DC Orders Clinical Impression: Bilateral pulmonary embolism, Hyperlipidemia, MARYANN (obstructive sleep apnea), Smoking greater than 20 pack years, Lung nodule, Hypoxia, Hemoptysis, Pleural effusion, left Prescriptions: No Action bupropion HCl [Wellbutrin SR] 150 mg tablet sustained-release 12 hr 150 mg PO BID escitalopram oxalate [Lexapro] 10 mg tablet 10 mg PO QHS albuterol sulfate 90 mcg/actuation HFA aerosol inhaler 2 puff inhalation Q6H PRN (Reason: shortness of breath or wheezing) cholecalciferol (vitamin D3) 125 mcg (5,000 unit) capsule 125 mcg PO QDAY Adult 50 Plus Probiotic 4 billion cell capsule 4,000 mmu cells PO QDAY Rx Instructions: administer with a meal pantoprazole [Protonix] 20 mg tablet,delayed release (DR/EC) 20 mg PO QDAY escitalopram oxalate [Lexapro] 20 mg tablet 20 mg PO QDAY rosuvastatin 20 mg tablet 20 mg PO DAILY multivitamin [Daily Multi-Vitamin] Tablet 1 tab PO DAILY (DME) Oral appliance See Rx Instructions .ROUTE .MEDSUPPLY Qty: 1 0RF Rx Instructions: As directed Primary Care Provider: Marsha Mendez Referrals: Marsha eMndez, TAKE OUT WAITER/WAITRESS-C [Primary Care Provider] - Print Language: Mohawk Disposition Disposition: Acute Care Hospital [facility]
[2024-11-03 14:27] LABS: Hematocrit 35.2 % (37-47); Hemoglobin 11.6 g/dL (12.0-15.0); Immature Granulocytes Count 0.050 X10^3/uL (0.0-0.0); Mean Corp Hgb Conc 33.0 g/dL (32-36); Mean Corpuscular Volume 86.3 fL (81-99); Mean Platelet Vol. 10.5 fl (6.2-12.0); NRBC Flagged by Analyzer 0 % (0-5); Platelet Count 282 K/mm3 (150-450); RBC Distribution Width CV 13.7 % (11.6-14.6); RBC Distribution Width SD 43.3 fl (35.1-43.9); Red Blood Count 4.08 M/mm3 (4.2-5.4); White Blood Count 12.6 K/mm3 (4.4-11.0)
[2024-11-03] MEDS: HEPARIN/D5w 25,000 UNITS 25,000 UNITS/250 ML IV.SOLN. 10.7 UNITS CONT INF (15:02)
[2024-11-03] MEDS: Heparin Injection (Vial) 5,000 UNIT/ML VIAL 5000 UNIT IV (15:02)
[2024-11-03 15:12] LABS: Anion Gap 14 (5-15); BUN 15 mg/dL (4-19); BUN/Creat Ratio 16.4 RATIO (10-20); Calcium,Total 9.1 mg/dL (7.6-11.0); Carbon Dioxide 19.5 mmol/L (21.0-32.0); Chloride 106 mmol/L (98-108); Estimated Creatinine Clearance 56.82 ml/min (50-250); Glucose 84 mg/dL (70-99); Potassium 4.6 mmol/L (3.3-5.1)
[2024-11-03 15:51] LABS: Prothrombin Time (Protime)PT. 14.5 SECONDS (11.7-14.9)
[2024-11-03 15:52] LABS: Partial Thromboplast Time 26.4 Seconds (24.1-36.2)
[2024-11-03 16:12] LABS: Pro- Brain NATRIURETIC PEPTIDE 412 pg/mL (<=900); Troponin T High Sensitivity 25 ng/L (<=14)
--- NOTE | 2024-11-03 16:33 | PCM.HP.STD ---
HPI - General General Date of Admission: 11/03/24 Date of Service: 11/03/24 Chief Complaint: Hemoptysis, low O2 HPI Narrative MARY AGUILERA, is a 64-year-old female history of depression, anxiety, GERD, asthma, tobacco use presented to [facility] ED 11/03/2024 after a biopsy of her lung. She subsequently developed dyspnea and hypoxia, there was no postprocedure pneumothorax on x-ray so CTA obtained which showed bilateral pulmonary emboli with possible evidence of heart strain with bilateral lower lobe infarctions and stable lymphadenopathy. She was noted to be afebrile, heart rate in the 60s with blood pressure 128/69, respiratory rate 12 and pulse ox 96% on 2 L nasal cannula. CBC with white blood cell count of 12.6, hemoglobin 11.6 and platelet count 282. Lactic acid within normal limits and BMP only notable for a slightly low bicarb of 19.5 but anion gap within normal limits on her assay at 14. proBNP 412, troponin 25. Given the above hospitalist contacted for admission. Patient evaluated at bedside, she reports that she had a lung nodule found on her routine low-dose CT screening followed it with serial imaging due to it continuing to grow she was referred for the biopsy. She notes over the past 2 weeks she has had increased shortness of breath on exertion the point that at times she has to stop and has been somewhat achy all over, notes for the past week her right heel has been hurting as well but denies swelling in her lower extremities, had not really been coughing either. No fevers or chills. Notes that after the biopsy she did not have any increased shortness of breath but was noted to have low O2 and she did have the episodes of hemoptysis so she was brought to the ED. Reports that the hemoptysis is slowing down, does not have any shortness of breath and reports this is not changed throughout any of the events today. No pain in the center of her chest but does have some pain on deep inspiration at the site of biopsy on the left. 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-C) Wears glasses Arthritis Shortness of breath on exertion Leg cramps Change in bowel habit Generalized abdominal pain Heart murmur Dyspnea on exertion Post-menopausal High cholesterol Back pain Syncope Gastric reflux Smoker BiPAP (biphasic positive airway pressure) dependence Asthma History of echocardiogram History of stress test Cardiology follow-up encounter Hyperlipidemia Skin cancer Anxiety and depression Home Medications ?Medication ?Instructions ?Recorded ?Last Taken ?Type albuterol sulfate 90 mcg/actuation 2 puff inhalation Q6H PRN 04/15/23 Unknown History aerosol inhaler shortness of breath or wheezing bupropion HCl 150 mg tablet,12 hr 150 mg PO BID depression 06/23/24 Unknown History sustained-release (Wellbutrin SR) escitalopram oxalate 10 mg tablet 10 mg PO DAILY depression 06/23/24 Unknown History (Lexapro) lactobacillus combination no.9 4 4,000 mmu cells PO QDAY supple 06/23/24 Unknown History billion cell capsule (Adult 50 Plus Probiotic) multivitamin (Daily Multi-Vitamin 1 tab PO DAILY vitamin 07/06/24 Unknown History tablet) cholecalciferol (vitamin D3) 125 125 mcg PO QDAY supple 07/20/24 Unknown History mcg (5,000 unit) capsule pantoprazole 20 mg tablet,delayed 20 mg PO QDAY gerd 07/26/24 Unknown History release (Protonix) Oral appliance #1 ea 08/16/24 Unknown Rx escitalopram oxalate 20 mg tablet 20 mg PO QDAY depression 10/06/24 Unknown History (Lexapro) rosuvastatin 20 mg tablet 20 mg PO DAILY hyperlipidemia 10/06/24 Unknown History Allergy/AdvReac Type Severity Reaction Status Date / Time Penicillins Allergy Intermediate Hives Verified 11/03/24 13:18 Family History Mother Breast cancer Hypertension Aunt Breast cancer Brother Hypertension Father Atrial fibrillation Surgical History History of esophagogastroduodenoscopy (EGD) Hx of colonoscopy Cyst Removal from breast History of [facility] Hx of appendectomy Social History Smoking Status: Current every day smoker tobacco type: cigarettes alcohol intake: never substance use type: does not use caffeine: Yes what type of physical activity do you participate in: walking frequency: 3-4 times per week seatbelt use: always do you feel safe at home: Yes additional social history: , Just moved back from the [facility] [place] ROS ROS Narrative General: Denies fever/chills HENT: Denies headache, denies stuffy nose, denies sore throat EYES: Denies changes in vision Resp: Shortness of breath on exertion over the past 2 weeks and some hemoptysis since biopsy that she feels is slowing down Cardiac: Denies chest pain deep inspiration site of biopsy GI: Denies abdominal pain, denies changes in bowel, denies nausea/vomiting : Denies changes in urination Extremity: Denies swelling, has had some right heel pain over the past 1 week MSK: Denies weakness, some generalized achiness over the past 1 to 2 weeks Neuro: Denies any numbness/tingling Heme: Denies any bleeding or bruising aside from above Skin: Denies rashes Psychiatric: No complaints voiced Vital Signs Vital Signs Vital Signs: 11/03/24 13:18 11/03/24 13:22 11/03/24 13:23 Temperature 97.9 F 97.9 F Temperature Source Oral Oral Pulse Rate 61 67 Respiratory Rate 12 14 Respiratory Effort Normal Respiratory Depth Normal Respiratory Pattern Normal Blood Pressure 128/69 H 128/69 H Blood Pressure Mean 88 88 Pulse Ox 96 94 Oxygen Delivery Method Nasal Cannula Room Air Room Air Oxygen Flow Rate (L/min) 2 11/03/24 14:29 11/03/24 14:32 11/03/24 15:00 Temperature 98.6 F Temperature Source Oral Pulse Rate 63 63 64 Respiratory Rate 12 12 14 Respiratory Effort Respiratory Depth Respiratory Pattern Blood Pressure 133/68 H 133/68 H 132/71 H Blood Pressure Mean 89 89 91 Pulse Ox 93 94 95 Oxygen Delivery Method Nasal Cannula Nasal Cannula Nasal Cannula Oxygen Flow Rate (L/min) 2 2 2 11/03/24 15:00 11/03/24 16:00 11/03/24 16:27 Temperature 98.6 F 98.9 F Temperature Source Oral Pulse Rate 64 64 71 Respiratory Rate 14 17 20 H Respiratory Effort Respiratory Depth Respiratory Pattern Blood Pressure 132/71 H 129/66 H 132/67 H Blood Pressure Mean 91 87 88 Pulse Ox 95 96 94 Oxygen Delivery Method Nasal Cannula Nasal Cannula Oxygen Flow Rate (L/min) 2 2 Weight Weight: 71 kg Body Mass Index (BMI) 27.7 Physical Exam Narrative General: Alert, oriented HEENT: Atraumatic, normocephalic Eyes: Anicteric, normal conjunctiva, extraocular movements grossly intact Neck: Supple Respiratory: Some crackles at the bases, normal respiratory effort Cardiovascular: Regular rate and rhythm GI: Soft, nontender, nondistended Extremities: No edema, no pain on palpation of right heel Musculoskeletal: Moving all extremities Neuro: No overt focal neurological deficits Skin: No rashes appreciated Psych: Cooperative Results Lab / Micro Data 11/03/24 14:00 11/03/24 14:00 Labs: Laboratory Results - last 24 hr 11/03/24 14:00: WBC 12.6 H, RBC 4.08 L, Hgb 11.6 L, Hct 35.2 L, MCV 86.3, MCH 28.4, MCHC 33.0, RDW Std Deviation 43.3, RDW Coeff of Millie 13.7, Plt Count 282, MPV 10.5, Immature Gran % (Auto) 0.400, Neut % (Auto) 70.2 H, Lymph % (Auto) 16.3 L, [facility] % (Auto) 8.6, Eos % (Auto) 3.7, Baso % (Auto) 0.8, Absolute Neuts (auto) 8.8 H, Absolute Lymphs (auto) 2.05, Nucleated RBC % 0, PT 14.5, INR 1.1, APTT 26.4, Sodium 140, Potassium 4.6, Chloride 106, Carbon Dioxide 19.5 L, Anion Gap 14, BUN 15, Creatinine 0.92, Estim Creat Clear Calc 56.82, Est GFR (MDRD) Non-Af 69, BUN/Creatinine Ratio 16.4, Glucose 84, Lactic Acid < 1.0, Calcium 9.1, Troponin T High Sens 25 H, NT pro BNP II 412 Imaging Radiology Impression Chest CTA 11/03/24 13:47 IMPRESSION: Bilateral pulmonary emboli with evidence of heart strain. Bilateral lower lobe pulmonary infarctions. Left lower lobe nodule is obscured due to infarction. Stable lymphadenopathy. Critical results communicated to Dr. Guerrero at 3 p.m.. Reading Location: [facility] Assessment & Plan Assessment/Plan (1) Bilateral pulmonary embolism: PLAN: Plan # Hypoxia secondary to bilateral pulmonary emboli - May have underlying malignancy given this lung mass and now pulmonary embolism - Patient required 2 L nasal cannula, CT did show bilateral pulmonary emboli with possible lower lobe infarcts and right heart strain but aside from needing 2 L patient vitally stable -proBNP also only 412 and troponin 25 - Patient on heparin drip for now with plans to transition to oral anticoagulation on discharge -Patient reports her episodes of hemoptysis are improving now that she is on heparin, monitor closely -Incentive spirometer -Will obtain echocardiogram in the a.m. -Will also order lower extremity duplex to assess for any further clot burden #Depression/anxiety -Continue home medications #GERD -Continue PPI # History of asthma - As needed albuterol #Tobacco use -Advise cessation -Nicotine replacement available if desired #DVT ppx: Patient to be on IV heparin at this time Celia Modi MD Charges/Coding Visit Charges Inpatient E&M: 38924 Init Hosp L2
--- NOTE | 2024-11-03 17:07 | ECHOD_ITS ---
Reason For Study Reason For Study: Bilateral Pulm Embolism Procedure This was a 2D Doppler, Color Flow transthoracic echocardiogram. The study was technically difficult. Patient scanned supine due to pain. Exam performed portable in patient room. Left Ventricle Normal LV size. Normal left ventricular thickness. The estimated ejection fraction is 60 %. Normal diastololic function. Right Ventricle Normal RV size. Normal systolic function. TAPSE is 1.8. Atria The left and right atria are normal. Mitral Valve Mild (1+) mitral valve insufficiency. Tricuspid Valve Mild tricuspid valve insufficiency. Normal pulmonary artery pressure. Great Vessels Normal sized aortic root. Inferior vena cava collapse with respiration. Mildly dilated. Pericardium/Pleural No pericardial effusion. MMode/2D Measurements & Calculations LVIDd: 3.7 cm IVSd: 0.98 cm Ao root diam: 2.7 cm LVIDs: 1.9 cm LVPWd: 0.96 cm RVDd: 3.1 cm FS: 48.2 % LAV(MOD-bp): 19.3 ml LVAd ap4: 20.8 cm2 LVAd ap2: 25.8 cm2 LAV(MOD-bp) Indexed: 11.3 ml/m2 LVLd ap4: 7.2 cm LVLd ap2: 8.1 cm LAV(MOD-sp2): 20.2 ml EDV(MOD-sp4): 51.9 ml EDV(MOD-sp2): 70.1 ml LAV(MOD-sp4): 18.3 ml EDV(sp4-el): 51.2 ml EDV(sp2-el): 69.5 ml LVAs ap4: 10.4 cm2 LVAs ap2: 13.5 cm2 LVLs ap4: 6.1 cm LVLs ap2: 7.1 cm ESV(MOD-sp4): 15.6 ml ESV(MOD-sp2): 23.5 ml ESV(sp4-el): 15.0 ml ESV(sp2-el): 21.7 ml EF(MOD-sp4): 69.9 % EF(MOD-sp2): 66.5 % EF(sp4-el): 70.7 % SV(MOD-sp4): 36.2 ml SV(MOD-sp2): 46.6 ml SV(sp4-el): 36.2 ml SI(MOD-sp4): 21.4 ml/m2 SI(MOD-sp2): 27.5 ml/m2 LA dimension(2D): 3.0 cm LA A4 area: 9.7 cm2 RA A4 area: 13.2 cm2 TAPSE: 1.8 cm Time Measurements MV dec time: 0.15 sec Doppler Measurements & Calculations MV E max pasquale: 61.2 cm/sec Lat Peak E' Pasquale: 10.5 cm/sec Med Peak E' Pasquale: 9.1 cm/sec MV A max pasquale: 62.4 cm/sec E/E' lat: 5.8 E/E' med: 6.7 MV E/A: 0.98 MV dec slope: 396.5 cm/sec2 Ao V2 max: 163.2 cm/sec LV V1 max: 136.1 cm/sec Ao max P.6 mmHg LV V1 max P.4 mmHg Ao V2 mean: 106.0 cm/sec LV V1 mean P.9 mmHg Ao mean P.3 mmHg LV V1 mean: 92.0 cm/sec Ao V2 VTI: 35.1 cm LV V1 VTI: 31.8 cm AV (velocity ratio): 0.91 PA V2 max: 80.9 cm/sec TR max pasquale: 269.6 cm/sec TR max P.1 mmHg ECHO/Echo Complete Interpretation Summary Normal LV size. Normal left ventricular thickness. The estimated ejection fraction is 60 %. Normal diastolic function Normal RV size. With normal systolic function TAPSE is 1.8. Mildly dilated IVC but with normal respiratory variation Top normal right-sided pressure Ordering Physician: Celia Modi Referring Physician: Marsha Mendez Performed By: Georgina Hyatt RDCS
[2024-11-03 18:18] LABS: Troponin T High Sens 2 HR 26 ng/L (<=14)
[2024-11-03 20:01] LABS: Troponin T High Sens 4 HR 27 ng/L (<=14)
--- OUTSIDE RECORDS SUMMARY | 2024-11-03 20:08 | XMS RPT_ITS | CCD ---
Author Organization [facility] CliniSyin Care Team Providers Care Greige Mender Name Role Phone [facility], [facility] Primary Care Pro vider Ladan LICENSE CLERK, LICENSE CLERK-C Melissa Attending Provider Dr. Sudeep Nicole Referring Provider [phone] [facility], [facility] Primary Care Pro vider Ladan LICENSE CLERK, LICENSE CLERK-C Melissa Attending Provider [phone] EDUAR Gaspar-C Cleopatra Referring Provider Dr. Jim Lama Attending Provider [facility] Referring Provid er Dr. Mars Pyle Attending Provider [phone] Dr. Mars Pyle Other Provider EDUAR Gaspar-C Cleopatra Other Provider [facility], [facility] Primary Care Pro vider [facility], [facility] Referring Provid er Dr. Mars Pyle Attending Provider Dr. Mars Pyle Other Provider Chasity, EDUAR-C Cleopatra Other Provider [phone] Ladan LICENSE CLERK, LICENSE CLERK-C Melissa Attending Provider [phone] EDUAR Gaspar-C Cleopatra Referring Provider [facility], [facility] Primary Care Pro vider [facility], [facility] Referring Provid er Ladan LICENSE CLERK, LICENSE CLERK-C Melissa Attending Provider [facility], [facility] Primary [facility] Pro vider [facility], [facility] Referring Provid er Dr. Jim Lama Attending Provider [place] LICENSE CLERK-C, Melissa Attending Provider [place] LICENSE CLERK-C, Melissa Referring Provider Liu LICENSE CLERK-C, Marsha Primary Care Provider [facility], [facility] Referring Provid er Liu LICENSE CLERK-C, Marsha Attending Provider Liu LICENSE CLERK-C, Marsha Referring Provider Trinidad Short Attending Provider Unavailable Jamie GAITAN, Dr. Simeon Attending Provider Jamie GAITAN, Dr. Simeon Referring Provider Jamie GAITAN, Dr. Simeon Other Provider Liu LICENSE CLERK-C, Marsha Primary Care Provider Ladan LICENSE CLERK-C, Melissa Attending Provider Ladan LICENSE CLERK-C, Melissa Referring Provider Je LICENSE CLERK-C, Tamia Attending Provider Liu LICENSE CLERK-C, Marsha Primary Care Provider Liu LICENSE CLERK-C, Marsha Attending Provider Ladan LICENSE CLERK, Melissa Referring Unavailable Liu, Marsha Primary Care Unavailable Ladan WITT, Melissa Attending Unavailable Blanco Hernandez Referring Unavailable Blanco Hernandez Attending Unavailable [facility] Primary Care Unavailable Blanco Ayala Referring Unavailable Blanco Ayala Attending Unavailable Liu, Marsha Primary Care Unavailable Ladan LICENSE CLERK, Melissa Referring Unavailable Liu, Marsha Primary Care Unavailable Ladan LICENSE CLERK, Melissa Attending Unavailable Liu, Marsha Primary Care Unavailable Liu, Marsha Attending Unavailable Liu, Marsha Referring Unavailable Liu, Marsha Attending Unavailable [facility], [facility] Primary Care Unavailable Ladan LICENSE CLERK, Melissa Referring Unavailable Liu, Marsha Primary Care Unavailable Ladan LICENSE CLERK, Melissa Attending Unavailable Liu, Marsha Primary Care Unavailable Ladan LICENSE CLERK, Melissa Attending Unavailable [place] LICENSE CLERK, Melissa Referring Unavailable Hernandez, Blanco Referring Unavailable Hernandez, Blanco Consulting Unavailable [facility], [facility] Primary Care Unavailable Asael Salter Attending Unavailable [place] LICENSE CLERK, Melissa Referring Unavailable Liu, Marsha Primary Care Unavailable [place] LICENSE CLERK, Melissa Attending Unavailable [place] LICENSE CLERK, Melissa Referring Unavailable [place] LICENSE CLERK, Melissa Attending Unavailable Liu, Marsha Primary Care Unavailable Liu, Marsha Attending Unavailable Liu, Marsha Primary Care Unavailable Liu, Marsha Referring Unavailable Liu, Marsha Primary Care Unavailable [place] LICENSE CLERK, Melissa Attending Unavailable Liu, Marsha Referring Unavailable Liu, Marsha Primary Care Unavailable [place] LICENSE CLERK, Melissa Attending Unavailable Liu, Marsha Referring Unavailable Liu, Marsha Primary Care Unavailable Je WITT, Tamia Attending Unavailable Hernandez, Blanco Attending Unavailable [facility] Referring Unavailable [address], [facility] Primary Care Unavailable Liu, Marsha Primary Care Unavailable [place] LICENSE CLERK, Melissa Attending Unavailable [facility], [facility] Referring Unavailable Liu, Marsha Primary Care Unavailable [place] LICENSE CLERK, Melissa Attending Unavailable Liu, Marsha Referring Unavailable Liu, Marsha Primary Care Unavailable Trinidad Short Attending Unavailable Jamie, Blanco Referring Unavailable Bortz, Blanco Attending Unavailable Bortz, Blanco Consulting Unavailable Liu, Marsha Primary Care Unavailable Liu, Marsha Referring Unavailable Liu, Marsha Attending Unavailable Liu, Marsha Primary Care Unavailable Liu LICENSE CLERK-C, Marsha Primary Care Provider Liu LICENSE CLERK-C, Marsha Attending Provider Liu LICENSE CLERK-C, Marsha Referring Provider [place] LICENSE CLERK-C, Melissa Attending Provider [place] LICENSE CLERK-C, Melissa Referring Provider Dr. Italo Guerrero MD Referring Provider Dr. Italo Guerrero MD Emergency Provider Rian GAITAN, Dr. Yang Admit Provider Rian GAITAN, Dr. Yang Attending Provider Allergies Allergy Classification Reported Allergen(s) Allergy Type Date of Onset Reaction(s) Facility (20 sources) Penicillin G Drug Allergy 05-14-2021 [facility] (1 source) Penicillin Drug Allergy 10-06-2024 [facility] (1 source) Penicillins Allergy to substance 11-03-2024 Hives [facility] Medications Current Medications Medication Drug Class(es) Dates Sig (Normalized) Sig (Original) [id number] 200 actuat albuterol 0.09 mg/actuat metered dose inhaler (20 sources) beta2-Adrenergic Agonist Start: 04-15-2023 Albuterol Sulfate 90 mcg/actuation HFA aerosol inhaler Active 2 NMA INHALATION EVERY 6 HOURS as needed for shortness of breath or wheezing April 15, 2023 1:00am Start: 04-15-2023 take 1 puff(s) by in halation every six hours Albuterol Sulfate Active 2 PUFF INHALATION EVERY 6 HOURS April 15, 2023 1:00am Start: 12-10-2021 End: 04-09-2022 Albuterol Sulfate 90 mcg/act uation HFA aerosol inhaler Discontinued 2 NMA INHALATION EVERY 6 HOURS as needed for SOB December 10, 2021 12:00am April 09, 2022 11:55am Start: 12-10-2021 End: 04-09-2022 take 1 puff(s) by inhalation every six hours Albuterol Sulfate Discontinued 2 PUFF INHALATION EVERY 6 HOURS December 10, 2021 12:00am April 09, 2022 11:55am Bacillus Coagulans (Probioti c (B. Coagulans)) 10 billion cell capsule,delayed release(DR/EC) (20 sources) Start: 05-14-2021 Bacillus Coagu lans (Probiotic (B. Coagulans)) 10 billion cell capsule,delayed release(DR/EC) Active CELL PO May 14, 2021 11:56am Start: 05-14-2021 End: 12-10-2021 Bacillus Coagulans (Probioti c (B. Coagulans)) 10 billion cell capsule,delayed release(DR/EC) Discontinued NMA PO May 14, 2021 1:00am December 10, 2021 1:22pm Start: 05-14-2021 End: 12-10-2021 Bacillus Coagulans (Probioti c (B. Coagulans)) 10 billion cell capsule,delayed release(DR/EC) Discontinued CELL PO May 14, 2021 12:00am December 10, 2021 12:22pm Start: 05-14-2021 End: 12-10-2021 Bacillus Coagulans (Probioti c (B. Coagulans)) 10 billion cell capsule,delayed release(DR/EC) Discontinued CELL PO May 14, 2021 1:00am December 10, 2021 1:22pm Start: 05-14-2021 Bacillus Ar lans (Probiotic (B. Coagulans)) 10 billion cell capsule,delayed release(DR/EC) Active CELL PO May 14, 2021 1:00am 12 hr buPROPion hydrochloride 150 mg extended release oral tablet (20 sources) Aminoketone Start: 06-23-2024 take 1 tablet by mouth twice daily Bupropion Hcl (Wellbutrin Sr) 150 mg tablet sustained-release 12 hr Active 150 mg PO TWICE A DAY June 23, 2024 12:43pm depression Start: 12-01-2023 End: 06-23-2024 take 1 tablet by mouth once daily Bupropion Hcl (Wellbutrin Sr) 150 mg tablet sustained-release 12 hr Discontinued 150 mg PO daily December 01, 2023 1:26pm June 23, 2024 12:48pm Start: 12-10-2018 End: 12-01-2023 take 1 tablet by mouth twice daily Bupropion Hcl (Wellbutrin Sr) 150 mg tablet sustained-release 12 hr Discontinued 150 mg PO TWICE A DAY December 10, 2018 12:00am December 01, 2023 1:30pm cholecalciferol 0.125 mg oral capsule (16 sources) Vitamin D Start: 07-20-2024 take 1 capsule by mouth once daily Cholecalciferol (Vitamin D3) 125 mcg (5,000 unit) capsule Active 125 ug PO daily July 20, 2024 12:00am supple Start: 07-20-2023 End: 06-23-2024 take 1 capsule by mouth once daily Cholecalciferol (Vitamin D3) 50 mcg (2,000 unit) capsule Discontinued 50 ug PO DAILY July 20, 2023 12:00am June 23, 2024 12:47pm escitalopram 20 mg oral tablet (20 sources) Serotonin Reuptake Inhibitor Start: 10-06-2024 take 1 tablet by mouth once daily Escitalopram Oxalate (Lexapro) 20 mg tablet Active 20 mg PO daily October 06, 2024 12:00am depression Start: 12-01-2023 End: 06-23-2024 take 1 tablet by mouth once daily Escitalopram Oxalate (Lexapro) 10 mg tablet Active 10 mg PO DAILY June 23, 2024 12:44pm depression total of 30mg Start: 11-09-2023 End: 07-26-2024 take 1 tablet by mouth once daily Escitalopram Oxalate 20 mg tablet Discontinued 20 mg PO daily November 09, 2023 12:00am July 26, 2024 11:21am Start: 04-09-2022 End: 12-01-2023 take 3 tablets by mouth once daily Escitalopram Oxalate (Lexapro) 10 mg tablet Discontinued 30 mg PO DAILY April 09, 2022 1:00am December 01, 2023 1:30pm Start: 04-14-2017 End: 04-09-2022 take 1 tablet by mouth once daily Escitalopram Oxalate (Lexapro) 20 mg tablet Discontinued 20 mg PO daily 90 0 April 14, 2017 12:11pm April 09, 2022 11:57am Lactobacillus Combination No.9 (Adult 50 Plus Probiotic) 4 billion cell capsule (7 sources) Start: 06-23-2024 take 4 capsules by mouth once daily Lactobacillus Combination No.9 (Adult 50 Plus Probiotic) 4 billion cell capsule Active 4000 NMA PO daily June 23, 2024 12:00am supple administer with a meal Start: 06-23-2024 take 4 capsules by m outh once daily Lactobacillus Combination No.9 (Adult 50 Plus Probiotic) 4 billion cell capsule Active 4000 NMA PO daily June 23, 2024 12:00am administer with a meal Multivitamin (Daily Multi-Vitamin) tablet (7 sources) Start: 07-06-2024 Multivitamin ( Daily Multi-Vitamin) tablet Active 1 {tbl} PO DAILY July 06, 2024 12:00am vitamin Start: 07-06-2024 Multivitamin ( Daily Multi-Vitamin) tablet Active 1 {tbl} PO DAILY July 06, 2024 12:00am Multivitamin preparation (12 sources) Start: 05-14-2021 take 1 tablet by mouth once daily Multivitamin Active 1 TABLET PO DAILY May 14, 2021 11:57am Start: 05-14-2021 End: 12-10-2021 take 1 tablet by mouth once daily Multivitamin Discontinued 1 TABLET PO DAILY May 14, 2021 12:00am December 10, 2021 12:22pm Start: 05-14-2021 End: 12-10-2021 take 1 tablet by mouth once daily Multivitamin Discontinued 1 TABLET PO DAILY May 14, 2021 1:00am December 10, 2021 1:22pm Start: 05-14-2021 take 1 tablet by ines th once daily Multivitamin Active 1 TABLET PO DAILY May 14, 2021 1:00am Oral appliance (4 sources) Start: 08-16-2024 Oral appliance Active 0 .ROUTE .MEDSUPPLY 1 0 August 16, 2024 12:00am Obstructive sleep apnea syndrome Obstructive sleep apnea (adult) (pediatric) sleep apnea As directed Start: 08-16-2024 Oral appliance Active 0 .ROUTE .MEDSUPPLY 1 0 August 16, 2024 12:00am Obstructive sleep apnea syndrome Obstructive sleep apnea (adult) (pediatric) As directed pantoprazole 20 mg delayed release oral tablet (12 sources) Proton Pump Inhibitor Start: 07-26-2024 take 1 tablet by mouth once daily Pantoprazole (Protonix) 20 mg tablet,delayed release (DR/EC) Active 20 mg PO daily July 26, 2024 12:00am gerd Start: 07-20-2024 End: 07-26-2024 take 1 tablet by mouth once daily Pantoprazole 40 mg tablet,delayed release (DR/EC) Discontinued 40 mg PO daily July 20, 2024 12:00am July 26, 2024 11:21am rosuvastatin calcium 20 mg oral tablet (19 sources) HMG-CoA Reductase Inhibitor Start: 01-09-2022 End: 10-06-2024 take 1 tablet by mouth once daily Rosuvastatin 20 mg tablet Active 20 mg PO DAILY October 06, 2024 1:14pm hyperlipidemia Completed/Discontinued Medications Medication Drug Class(es) Dates Sig (Normalized) Sig (Original) acyclovir 400 mg oral tablet (20 sources) Herpesvirus Nucleoside Analog DNA Polymerase Inhibitor, Herpes Simplex Virus Nucleoside Analog DNA Polymerase Inhibitor, Herpes Zoster Virus Nucleoside Analog DNA Polymerase Inhibitor Start: 06-08-2018 End: 02-21-2019 take 1 tablet by mouth three times daily as needed Acyclovir 400 mg tablet Discontinued 400 mg PO THREE TIMES A DAY as needed June 09, 2018 2:50pm February 21, 2019 9:43am doxycycline monohydrate 100 mg oral capsule (20 sources) Tetracycline-class Drug Start: 02-21-2019 End: 12-10-2021 take 1 capsule by mouth twice daily Doxycycline Monohydrate 100 mg capsule Discontinued 100 mg PO TWICE A DAY May 14, 2021 11:55am December 10, 2021 1:22pm estradiol 0.1 mg/ml vaginal cream (20 sources) Estrogen Start: 04-22-2017 End: 06-09-2018 Estradiol (Estrace) 0.01 % (0.1 mg/gram) cream Discontinued 1 g VAGINAL .COMPLEX 42.5 2 April 22, 2017 1:00am June 09, 2018 2:49pm 1 g VAGINAL small amount at vaginal opening every other night X 4 weeks famotidine 20 mg oral tablet (13 sources) Histamine-2 Receptor Antagonist Start: 04-09-2022 End: 07-20-2024 take 1 tablet by mouth once daily Famotidine (Pepcid) 20 mg tablet Discontinued 20 mg PO DAILY April 09, 2022 1:00am July 20, 2024 1:09pm fluticasone propionate 0.05 mg/actuat metered dose nasal spray (20 sources) Corticosteroid Start: 06-23-2024 End: 07-06-2024 take 50 ug nasal route once daily Fluticasone Propionate (Flonase Allergy Relief) 50 mcg/actuation spray,suspension Discontinued 2 NMA INTRANASAL daily June 23, 2024 12:00am July 06, 2024 10:33am administer into each nostril Start: 12-10-2021 End: 04-15-2023 Fluticasone Propionate 50 mc g/actuation spray,suspension Discontinued 1 NMA INTRANASAL NEEDED as needed for ALLERGIES December 10, 2021 12:00am April 15, 2023 11:09am Start: 12-10-2021 End: 04-15-2023 Fluticasone Propionate Disco ntinued 1 SPRAY INTRANASAL NEEDED December 10, 2021 12:00am April 15, 2023 11:09am hydrocortisone 0.025 mg/mg topical ointment (20 sources) Corticosteroid Start: 06-23-2024 End: 10-06-2024 Hydrocortisone 2.5 % ointment Discontinued 1 NMA TOPICAL 2 to 3 times per day as needed for itching June 23, 2024 12:00am October 06, 2024 1:13pm Start: 12-10-2021 Hydrocortisone Active G TOPICAL December 10, 2021 12:00am Start: 06-09-2018 End: 02-21-2019 Hydrocortisone (Anti-Itch (H c)) 1 % lotion Discontinued 1 NMA TOPICAL AT BEDTIME June 09, 2018 12:00am February 21, 2019 9:43am Start: 06-09-2018 End: 02-21-2019 Hydrocortisone (Anti-Itch (H c)) 1 % lotion Discontinued 1 APPLIC TOPICAL AT BEDTIME June 09, 2018 12:00am February 21, 2019 9:43am ibuprofen 200 mg oral capsule (20 sources) Nonsteroidal Anti-inflammatory Drug Start: 02-21-2019 End: 12-10-2021 take 1 capsule by mouth every six hours Ibuprofen 200 mg capsule Discontinued 200 mg PO EVERY 6 HOURS February 21, 2019 1:00am December 10, 2021 1:22pm loratadine 10 mg oral tablet (20 sources) Start: 02-21-2019 End: 12-10-2021 take 1 tablet by mouth once daily Loratadine (Claritin) 10 mg tablet Discontinued 10 mg PO DAILY February 21, 2019 1:00am December 10, 2021 1:22pm Multivitamin tablet (10 sources) Start: 05-14-2021 End: 12-10-2021 Multivitamin tablet Discontinued 1 {tbl} PO DAILY May 14, 2021 1:00am December 10, 2021 1:22pm omeprazole 40 mg delayed release oral capsule (20 sources) Proton Pump Inhibitor Start: 07-20-2023 End: 12-01-2023 take 1 capsule by mouth once daily Omeprazole 40 mg capsule,delayed release(DR/EC) Discontinued 40 mg PO daily July 20, 2023 12:00am December 01, 2023 1:28pm Start: 05-14-2021 End: 04-09-2022 take 1 capsule by mouth once daily Omeprazole 20 mg capsule,delayed release(DR/EC) Discontinued 20 mg PO DAILY May 14, 2021 1:00am April 09, 2022 11:55am sucralfate 1000 mg oral tablet (7 sources) Aluminum Complex Start: 06-23-2024 End: 07-06-2024 take 1 tablet by mouth before mealtime Sucralfate (Carafate) 1 gram tablet Discontinued 1 g PO before meals June 23, 2024 12:00am July 06, 2024 10:34am Problems Active Problems Problem Classification Problem Date Documented Da te Episodic/Chronic Abdominal pain (20 sources) Generalized abdominal pain; Translations: [Generalized abdominal pain] Onset: 5 06-23-2024 Episodic Cardiac dysrhythmias (1 source) Unspecified atrial fibrillation; Translations: [Unspecified atrial fibrillation] Onset: 5 Chronic Cardiac dysrhythmias (20 sources) Intermittent palpitations; Translations: [Palpitations] Onset: 4 06-09-2018 Episodic Chronic obstructive pulmonary disease and bronchiectasis (1 source) Chronic obstructive pulmonary disease, unspecified; Translations: [Chronic obstructive pulmonary disease, unspecified] Onset: 4 Chronic Disorders of lipid metabolism (20 sources) Hyperlipidemia; Translations: [Hyperlipidemia, unspecified] 06-08-2018 Chronic Diverticulosis and diverticulitis (15 sources) Diverticular disease; Translations: [Diverticulosis of intestine, part unspecified, without perforation or abscess without bleeding] Onset: 5 07-11-2024 Chronic Esophageal disorders (20 sources) Gastroesophageal reflux disease; Translations: [Gastro-esophageal reflux disease without esophagitis] Onset: 5 Chronic Heart valve disorders (16 sources) Heart murmur; Translations: [Cardiac murmur, unspecified] 12-01-2023 Episodic Immunizations and screening for infectious disease (11 sources) Patient encounter status; Translations: [Encounter for immunization] Onset: 4 03-21-2024 Episodic Nonspecific chest pain (20 sources) Chest pain on exertion; Translations: [Chest pain, unspecified] Onset: 4 06-09-2018 Episodic Open wounds of extremities (20 sources) Cat bite - wound; Translations: [Open bite of left hand, initial encounter] 04-09-2022 Episodic Other gastrointestinal disorders (7 sources) Altered bowel function; Translations: [Change in bowel habit] 06-23-2024 Episodic Other lower respiratory disease (20 sources) Dyspnea; Translations: [Dyspnea, unspecified] 04-09-2022 Episodic Other lower respiratory disease (16 sources) Dyspnea on exertion; Translations: [Other forms of dyspnea] 11-09-2023 Episodic Other lower respiratory disease (20 sources) Nodule of lung; Translations: [Solitary pulmonary nodule] 03-21-2024 Episodic Comment on above: 8 mm left lower lobe pleural-based Spiculated 2.0 x 1.6 cm left lower lobe Other lower respiratory disease (2 sources) Solitary pulmonary nodule; Translations: [Solitary pulmonary nodule] Onset: Episodic Other lower respiratory disease (1 source) Dyspnea, unspecified; Translations: [Dyspnea, unspecified] Onset: Episodic Other lower respiratory disease (2 sources) Hemoptysis; Translations: [Hemoptysis] 11-03-2024 Episodic Other lower respiratory disease (2 sources) Hypoxia; Translations: [Hypoxemia] 11-03-2024 Episodic Pleurisy; pneumothorax; pulmonary collapse (2 sources) Pleural effusion; Translations: [Pleural effusion, not elsewhere classified] 11-03-2024 Episodic Pulmonary heart disease (2 sources) Acute pulmonary embolism; Translations: [Other pulmonary embolism with acute cor pulmonale] 11-03-2024 Chronic Pulmonary heart disease (4 sources) Pulmonary embolism with pulmonary infarction; Translations: [Other pulmonary embolism without acute cor pulmonale] 11-03-2024 Episodic Residual codes; unclassified (20 sources) Obstructive sleep apnea syndrome; Translations: [Obstructive sleep apnea (adult) (pediatric)] 10-06-2022 Chronic Comment on above: AHI 21.2 Residual codes; unclassified (15 sources) Obstructive sleep apnea (adult) (pediatric); Translations: [Obstructive sleep apnea (adult)(pediatric)] Onset: Chronic Residual codes; unclassified (2 sources) Sleep apnea; Translations: [Sleep apnea, unspecified] Chronic Residual codes; unclassified (2 sources) Sleep apnea, unspecified; Translations: [Unspecified sleep apnea] Chronic Substance-related disorders (20 sources) Nicotine dependence; Translations: [Nicotine dependence, unspecified, uncomplicated] Chronic Comment on above: 40 years, quit compl etely June 08, 2023 40 years, currently smoking 1/2 pack/day Past or Other Problems Problem Classification Problem Date Documented Da te Episodic/Chronic Other connective tissue disease (1 source) Myalgia, unspecified site; Translations: [Myalgia, unspecified site] Onset: 07-27-2024 Episodic Other lower respiratory disease (2 sources) Other forms of dyspnea; Translations: [Other forms of dyspnea] Onset: 01-15-2024 Episodic Other screening for suspected conditions (not mental disorders or infectious disease) (3 sources) Encounter for screening for malignant neoplasm of colon; Translations: [Encounter for screening for malignant neoplasm of respiratory organs] Onset: 01-23-2024 Episodic Unclassified (20 sources) Cyst Removal from breast 10-10-2021 Results Test Name Value Interpretation Reference Range Facility Absolute lymphocyte countOrd ered By: Italo Guerrero on 11-03-2024 Lymphocytes Auto (Unsp spec) [#/Vol] 2.05 10*3/uL 0.83-4.51 [facility] Absolute lymphocyte countOrd ered By: Pete Bartholomew on 11-03-2024 Lymphocytes Auto (Unsp spec) [#/Vol] 1.59 10*3/uL 0.83-4.51 [facility] Absolute neutrophil countOrd ered By: Italo Guerrero on 11-03-2024 Neutrophils (Bld) [#/Vol] 8.8 10*3/uL High 2.0-7.7 [facility] Absolute neutrophil countOrd ered By: Pete Bartholomew on 11-03-2024 Neutrophils (Bld) [#/Vol] 6.5 10*3/uL 2.0-7.7 [facility] Activated partial thrombopla stin time (aPTT) in platelet poor plasma by coagulation aOrdered By: Italo Guerrero on 11-03-2024 aPTT Coag (PPP) [Time] 26.4 s 24.1-36.2 [facility] Activated partial thrombopla stin time (aPTT) in platelet poor plasma by coagulation aOrdered By: Pete Bartholomew on 11-03-2024 aPTT Coag (PPP) [Time] 26.6 s 24.1-36.2 [facility] Anion gap in Serum or Plasma Ordered By: Italo Guerrero on 11-03-2024 Anion gap [Moles/Vol] 14 mmol/L 5-15 [facility] Automated lymphocyte count a s percentage of total leukocytesOrdered By: Italo Guerrero on 11-03-2024 Lymphocytes/100 WBC Auto (Unsp spec) 16.3 % Low 19-41 [facility] BUN/creatinine ratioOrdered By: Italo Guerrero on 11-03-2024 Urea nitrogen/Creatinine [Mass ratio] 16.4 mg/mg 10-20 [facility] Basophil percentageOrdered B y: Italo Guerrero on 11-03-2024 Basophils/100 WBC (Bld) 0.8 % 0-1 [facility] Basophil percentageOrdered B y: Pete Bartholomew on 11-03-2024 Basophils/100 WBC (Bld) 1.2 % High 0-1 [facility] Blood platelets count (numbe r/volume)Ordered By: Pete Bartholomew on 11-03-2024 Platelets (Bld) [#/Vol] 306 10*3/uL 150-450 [facility] Carbon dioxide, total [Moles /volume] in Central venous bloodOrdered By: Italo Guerrero on 11-03-2024 CO2 [Moles/Vol] 19.5 mmol/L Low 21.0-32.0 [facility] Chloride assayOrdered By: Ug o Guerrero on 11-03-2024 Chloride [Moles/Vol] 106 mmol/L 98-108 [facility] Eosinophil %Ordered By: Jose Bartholomew on 11-03-2024 Eosinophils/100 WBC (Bld) 5.0 % 0-5 [facility] Eosinophil percentageOrdered By: Italo Guerrero on 11-03-2024 Eosinophils/100 WBC (Bld) 3.7 % 0-5 [facility] Erythrocyte distribution wid th ratioOrdered By: Italo Guerrero on 11-03-2024 Erythrocyte distribution width (RBC) [Ratio] 13.7 % 11.6-14.6 [facility] Erythrocyte distribution wid th ratioOrdered By: Pete Bartholomew on 11-03-2024 Erythrocyte distribution width (RBC) [Ratio] 33.0 % High 11.6-14.6 [facility] Erythrocyte distribution wid th standard deviationOrdered By: Italo Guerrero on 11-03-2024 Erythrocyte distribution width (RBC) [Ratio] 43.3 fl 35.1-43.9 [facility] Glomerular filtration rate ( GFR) estimation/1.73 sq m using serum, plasma, or whole bOrdered By: Italo Guerrero on 11-03-2024 GFR/1.73 sq M.predicted among non-blacks MDRD (S/P/Bld) [Vol rate/Area] 69 mL/min/{1.73_m2} >60 [facility] Comment on above: mL/min/1.73m2 CKD-EP I Creatinine Equation (2020) Hematocrit Auto (Bld) [Volum e fraction]Ordered By: Italo Guerrero on 11-03-2024 Hematocrit (Bld) [Volume fraction] 35.2 % Low 37-47 [facility] Hematocrit Auto (Bld) [Volum e fraction]Ordered By: Pete Bartholomew on 11-03-2024 Hematocrit (Bld) [Volume fraction] 36.7 % Low 37-47 [facility] Hemoglobin measurementOrdere d By: Italo Guerrero on 11-03-2024 Hemoglobin (Bld) [Mass/Vol] 11.6 g/dL Low 12.0-15.0 [facility] Hemoglobin measurementOrdere d By: Pete Bartholomew on 11-03-2024 Hemoglobin (Bld) [Mass/Vol] 12.1 g/dL 12.0-15.0 [facility] Immature granulocyte percent ageOrdered By: Pete Bartholomew on 11-03-2024 Immature granulocytes/100 WBC (Bld) 0.200 % 0.0-0.9 [facility] Comment on above: IG% - Immature Granu locytes (promyelocytes, myelocytes and metamyelocytes) > 1% indicates that a LEFT SHIFT is Present. Immature granulocytes/100 WB C Auto (Bld)Ordered By: Italo Guerrero on 11-03-2024 Immature granulocytes/100 WBC (Bld) 0.400 % 0.0-0.9 [facility] Comment on above: IG% - Immature Granu locytes (promyelocytes, myelocytes and metamyelocytes) > 1% indicates that a LEFT SHIFT is Present. International normalized rat io (INR) calculationOrdered By: Italo Guerrero on 11-03-2024 INR Coag (Bld) [Relative time] 1.1 {INR} [facility] International normalized rat io (INR) calculationOrdered By: Pete Bartholomew on 11-03-2024 INR Coag (Bld) [Relative time] 1.2 {INR} [facility] Lactic acid measurementOrder ed By: Italo Guerrero on 11-03-2024 Lactate [Moles/Vol] mmol/L 0.0-2.0 [facility] Lymphocyte %Ordered By: Jose Bartholomew on 11-03-2024 Lymphocytes/100 WBC (Bld) 16.8 % Low 19-41 [facility] MCV (mean corpuscular volume ) determinationOrdered By: Italo Guerrero on 11-03-2024 MCV (RBC) [Entitic vol] 86.3 fL 81-99 [facility] MCV (mean corpuscular volume ) determinationOrdered By: Pete Bartholomew on 11-03-2024 MCV (RBC) [Entitic vol] 86.8 fL 81-99 [facility] Mean corpuscular hemoglobin (MCH) determinationOrdered By: Italo Guerrero on 11-03-2024 MCH (RBC) [Entitic mass] 28.4 pg 27.0-32.0 [facility] Mean corpuscular hemoglobin (MCH) determinationOrdered By: Pete Bartholomew on 11-03-2024 MCH (RBC) [Entitic mass] 28.6 pg 27.0-32.0 [facility] Mean corpuscular hemoglobin concentration (MCHC) determinationOrdered By: Italo Guerrero on 11-03-2024 MCHC (RBC) [Mass/Vol] 33.0 g/dL 32-36 [facility] Mean platelet volume determi nationOrdered By: Italo Guerrero on 11-03-2024 Platelet mean volume (Bld) [Entitic vol] 10.5 fL 6.2-12.0 [facility] Mean platelet volume determi nationOrdered By: Pete Bartholomew on 11-03-2024 Platelet mean volume (Bld) [Entitic vol] 10.3 fL 6.2-12.0 [facility] Monocyte percentageOrdered B y: Italo Guerrero on 11-03-2024 Monocytes/100 WBC (Bld) 8.6 % 0-10 [facility] Monocyte percentageOrdered B y: Pete Bartholomew on 11-03-2024 Monocytes/100 WBC (Bld) 8.7 % 0-10 [facility] Natriuretic peptide.B prohor matteo N-Terminal [Mass/volume] in Serum or PlasmaOrdered By: Celia Modi on 11-03-2024 Natriuretic peptide.B prohormone N-Terminal [Mass/Vol] 412 pg/mL <900 [facility] Comment on above: Heart Failure Unlike ly: < 300 pg/mLHeart Failure Likely< 50 Years: > 450 pg/mL50-75 Years: > 900 pg/mL>75 Years: > 1800 pg/mL Neutrophil %Ordered By: Jose Bartholomew on 11-03-2024 Neutrophils/100 WBC (Bld) 68.1 % 47-70 [facility] Neutrophil percentageOrdered By: Italo Guerrero on 11-03-2024 Neutrophils/100 WBC (Bld) 70.2 % High 47-70 [facility] Nucleated red blood cell per centageOrdered By: Italo Guerrero on 11-03-2024 Nucleated RBC/100 WBC (Bld) [Ratio] 0 % 0-5 [facility] Platelet countOrdered By: Azul Guerrero on 11-03-2024 Platelets (Bld) [#/Vol] 282 10*3/uL 150-450 [facility] Potassium measurement (mass/ volume)Ordered By: Italo Guerrero on 11-03-2024 Potassium (Unsp spec) [Mass/Vol] 4.6 mmol/L 3.3-5.1 [facility] Comment on above: Hemolysis present, R esults could be affected. Prothrombin timeOrdered By: Italo Guerrero on 11-03-2024 PT Coag (PPP) [Time] 14.5 s 11.7-14.9 [facility] Prothrombin timeOrdered By: Pete Bartholomew on 11-03-2024 PT Coag (PPP) [Time] 15.2 s High 11.7-14.9 [facility] RBC Auto (Bld) [#/Vol]Ordere d By: Italo Cesar on 11-03-2024 RBC (Bld) [#/Vol] 4.08 10*6/uL Low 4.2-5.4 [facility] RBC Auto (Bld) [#/Vol]Ordere d By: Pete Bartholomew on 11-03-2024 RBC (Bld) [#/Vol] 4.23 10*6/uL 4.2-5.4 [facility] RDWOrdered By: Pete camilo on 11-03-2024 RDW 42.7 fl 35.1-43.9 [facility] Serum creatinine measurement (mass/volume)Ordered By: Italo Guerrero on 11-03-2024 Creatinine [Mass/Vol] 0.92 mg/dL 0.70-1.20 [facility] Serum glucose measurement (m ass/volume)Ordered By: Italo Guerrero on 11-03-2024 Glucose [Mass/Vol] 84 mg/dL 70-99 [facility] Serum or plasma calcium abdi urement (mass/volume)Ordered By: Italo Guerrero on 11-03-2024 Calcium [Mass/Vol] 9.1 mg/dL 7.6-11.0 [facility] Serum or plasma urea nitroge n measurement (mass/volume)Ordered By: Italo Guerrero on 11-03-2024 Urea nitrogen [Mass/Vol] 15 mg/dL 4-19 [facility] Sodium levelOrdered By: Italo Guerrero on 11-03-2024 Sodium [Moles/Vol] 140 mmol/L 133-145 [facility] Troponin T.cardiac [Mass/vol ume] in Serum or Plasma by High sensitivity methodOrdered By: Celia Modi on 11-03-2024 Troponin T.cardiac High sensitivity method [Mass/Vol] 25 ng/L High <14 [facility] White blood cell (WBC) count Ordered By: Italo Guerrero on 11-03-2024 WBC (Bld) [#/Vol] 12.6 10*3/uL High 4.4-11.0 [facility] White blood cell (WBC) count Ordered By: Ptee Bartholomew on 11-03-2024 WBC (Bld) [#/Vol] 9.5 10*3/uL 4.4-11.0 [facility] Activated partial thrombopla stin time (aPTT) in platelet poor plasma by coagulation aOrdered By: Melissa Pickering on 10-06-2024 aPTT Coag (PPP) [Time] 24.0 s Low 24.1-36.2 [facility] International normalized rat io (INR) calculationOrdered By: Melissa Pickering on 10-06-2024 INR Coag (Bld) [Relative time] 1.0 {INR} [facility] Partial Thromboplast Timeon 10-06-2024 aPTT Coag (Bld) [Time] 24.0 s Low 24.1-36.2 [facility] Comment on above: Performed By: #### L 300.4310, L100.1900, L300.3900 ####[facility] [id number] [place], [address] Platelet Counton 10-06-2024 Platelets (Bld) [#/Vol] 346 10*3/uL Normal 150-450 [facility] Comment on above: Performed By: #### L 300.4310, L100.1900, L300.3900 #### [facility] [address] [place], [address] Platelet countOrdered By: Odilon Pickering on 10-06-2024 Platelets (Bld) [#/Vol] 346 10*3/uL [address] [place] [address] Prothrombin Time w/INRon INR Coag (PPP) [Relative time] 1.0 {INR} Normal [facility] Comment on above: Performed By: #### L 300.4310, L100.1900, L300.3900 #### [facility] [address] [place], [address] PT Coag (PPP) [Time] 13.6 s Normal 11.7-14.9 [facility] Comment on above: Performed By: #### L 300.4310, L100.1900, L300.3900 #### [facility] [address] [place], [address] Prothrombin timeOrdered By: Melissa Pickering on 10-06-2024 PT Coag (PPP) [Time] 13.6 s 11.7-14.9 [facility] Pulmonary Visit Reporton Pulmonary Visit Report [facility] [address] [place] [address] OFFICE VISIT Date of Service: 10/06/24 MR#: [id number] Acct: [id number] Name: MARY AGUILERA Rep #: [id number] : 1960 Provider: IRWIN Pickering Age/Sex: 64/F [place] [facility] [place] Status: Signed Assessment and Plan Assessment and Plan (1) Lung nodule: Status: Chronic Comment: Spiculated 2.0 x 1.6 cm left lower lobe Plan: Deteriorated. The left lower lobe nodule has progressed in size. There is also some concern for multiple prominent mediastinal lymph nodes. Discussed the plan with the patient in detail, all questions were answered. If the biopsy is positive we will discuss referral to oncology and obtain a PET scan for staging. If the pathology is negative we will proceed with serial imaging completing a diagnostic CT of the chest in 3 months. This we discussed further at the next office visit. Blood work will be obtained today to make sure that the patient is not at higher risk for bleeding than expected. She is not currently on any anticoagulants. (2) MARYANN (obstructive sleep apnea): Status: Chronic Comment: AHI 21.2 Plan: She is using and benefiting from PAP therapy while waiting for an oral mandibular advancement device. She is aware that once the oral device is optimized she will require a repeat titration study with the use of the oral device to make sure that the number of events is reduced. (3) Smoking greater than 20 pack years: Status: Chronic Comment: 40 years, currently smoking 1/2 pack/day Plan: Encourage complete smoking cessation. Orders: Orders Partial Thromboplast Time Today I48.91 - Unspecified atrial fibrillation, R06.09 - Other forms of dyspnea Platelet Count Today R06.00 - Dyspnea, unspecified, R06.09 - Other forms of dyspnea Prothrombin Time w/INR Today I48.91 - Unspecified atrial fibrillation, R06.09 - Other forms of dyspnea Plan Details Additional Comments: This note was generated with RECUP[employer] dictation software. It may contain incorrect words, spelling, and punctuation that were not noted in checking the note before signing. Follow Up: 1 Month HPI 3 M FU Chief Complaint: Test results HPI Comments Details: This patient presents to the office today for follow-up of her obstructive sleep apnea and to discuss test results. She is ambulatory and currently on room air. She has not recently been seen in the ED or urgent care for any respiratory illness. She has not required any antibiotics or prednisone for any breathing problems. She is not currently on any maintenance inhalers. She does use albuterol rescue inhaler a couple times per year, more frequently in the winter. She is smoking 1/2 pack/day. She reports shortness of breath on exertion. She has been experiencing a cough productive of clear to white-colored sputum, she denies any hemoptysis. She denies any wheezing, chest tightness, chest pain or palpitations. She also denies any fever, chills or body aches. She continues compliance with her PAP device. She has followed through with a referral to a dentist to be fit for a mandibular advancement device to treat her sleep apnea. She had the mold completed yesterday. She anticipates to have the device in approximately 1 month. She has been utilizing PAP therapy in the meantime. Compliance report for the past 30 days shows 77 % compliance with an average use of nearly 5 hours and 28 minutes per night. Current setting is BiPAP 11/7 cm of water with a backup rate of 12 breaths/min. Residual AHI of 6.4 events per hour. Leaks do not appear to be problematic. Test results personally reviewed the patient: CT of the chest without contrast completed on September 27, 2024. There has been interval increase in size of the previously described left lower lobe spiculated nodule now measuring 2.0 x 1.6 cm (previously measured 1.1 x 1.4 cm). Multiple prominent mediastinal lymph nodes are now seen. There is fullness of the left hilum however evaluation for lymphadenopathy is not possible in the absence of contrast administration. Polysomnogram completed on August 05, 2024 showed an overall AHI of 18.2 events per hour. Impression is moderate obstructive sleep apnea. It is noted that the supine AHI is 28 events per hour. Intake Vital Signs 07/20/24 08:00 07/26/24 06:23 10/06/24 10:09 Height 5 ft 3 in 5 ft 3 in 5 ft 3 in Weight: 154 lb BMI 27.3 BP 117/79 Blood Pressure Location Lt brachial Position Sitting Respiration 16 Pulse 64 Pulse Source Monitor Temp 97.4 F L Temperature Source Temporal Artery Pulse Oximetry (%) 94 Oxygen Delivery Method room air Intake Visit Reasons: 3 M FU Chief Complaint: discuss EGD Cutter Grinder Required: No DME Vendor: Blaise Accompanied by: Self Is patie (more content not included)... Normal [facility] Chest without Contraston Chest without Contrast [facility] Imaging Services [address] [place], [place] [address] Chest without Contrast MR#: [id number] Acct: [id number] Name: MARY AGUILERA Rep #: [id number] : 1960 F 64 From: Marco yang MD PCP: SLOAN Vaca, LICENSE CLERK-C Status: REG CLI Study: Chest without Contrast Date of Exam: 09/27/24 Exam# [id number] Ordering Dr: Melissa Pickering NP LICENSE CLERK-C PROCEDURE: CHEST WITHOUT CONTRAST 09/27/2024 REASON FOR EXAM: 8 MM NODULE IN SMOKER TECHNIQUE: Chest CT without contrast. Coronal and Sagittal reconstruction series were provided. One or more dose reduction techniques were used (e.g., Automated exposure control, adjustment of the mA and/or kV according to patient size, use of iterative reconstruction technique RADIATION DOSE SUMMARY: CTDlvol: 7.37 mGy DLP: 243.23 mGycm COMPARISON: 06/20/2024. FINDINGS: Normal unenhanced main pulmonary artery and right and left pulmonary arteries. Normal bilateral peripheral pulmonary arteries. Normal thoracic aorta and visualized great vessels. There is no demonstrated aortic aneurysm. Normal heart and pericardium. The coronary arteries are not calcified. Multiple prominent mediastinal lymph nodes are now seen. There is fullness of the left hilum however evaluation for lymphadenopathy is not possible in view of the absence of contrast administration. Normal visualized trachea and bronchi. The lungs are well expanded. There has been interval increase in the size of the previously described left lower lobe spiculated nodule now measuring 2.0 x 1.6 cm in axial dimension ( previous measurement 1.1 x 1.4 cm). Linear atelectasis is seen in the right lower lobe. Normal pleura. Normal chest wall structures. Normal osseous structures. Prominent xiphoid process of the sternum is noted which bulges anteriorly. Normal visualized upper abdomen. CT/Chest without Contrast IMPRESSION: Interval increase in the size of the left lower lobe nodule with newly seen mediastinal lymph adenopathy. Assessment for left hilar lymphadenopathy is not possible in view of the absence of contrast administration. A PET/CT scan is recommended. Reading [facility] CC: IRWIN Pickering; [facility] IRWIN Mendez Pellet Post Inspector: Signed Normal [facility] Cardiology Visit Reporton Cardiology Visit Report [facility] [address] [place] [address] OFFICE VISIT Date of Service: 07/26/24 MR#: [id number] Acct: [id number] Name: MARY AGUILERA Rep #: [id number] : 1960 Provider: IRWIN cole Age/Sex: 63/F Location[place] [facility] [place] Status: Signed HPI HPI History of Present Illness Details: Ms. Aguilera is a 63 year old lady who presents to the office today for a cardiovascular follow up visit. She was previously being evaluated for dyspnea on exertion. The patient has a history of shortness of breath and dyspnea on exertion specifically going up and down stairs. She occasionally gets these episodes when she is walking her dog that last 10 to 15 seconds and then resolve spontaneously continues on with a walk without incident. She does have a history of obstructive sleep apnea being treated with BiPAP; she does smoke and has about a [id number] smoking history. There is no family history of early coronary disease. She underwent an echocardiogram in November of 2023, which demonstrated an ejection fraction of 70, stage I diastolic dysfunction and mild tricuspid valve insufficiency. Her stress test at that time was also negative for ischemia. From a cardiac standpoint, the patient is doing well. She denies any palpitations, chest pain, pressure or heaviness. She does have occasional SOB with climbing a few flights of stairs-this is nothing new or worsening. She denies Orthopnea, and PND. She does not have bleeding issues; no blood in urine, stool, or nosebleeds. She denies any decrease in energy level, myalgias, or claudication. She does not have edema, or sudden weight gain. She does have occasional lightheadedness with quick positional changes. She denies dizziness, syncopal or near syncopal episodes, and headaches. Intake Vital Signs 07/20/24 08:00 07/26/24 06:23 Height 5 ft 3 in 5 ft 3 in Weight: 154 lb BMI 27.3 BP 111/68 Blood Pressure Location Lt brachial Position Sitting Respiration 18 Pulse 58 L Pulse Source Monitor Pulse Oximetry (%) 94 Intake Visit Reasons: 6 M FU Cutter Grinder Required: No Is patient in pain?: No Allergies penicillin G Allergy (Mild, Verified 07/26/24 11:32) Swelling Medications ???Medication ???Instructions ???Recorded ???Confirmed ???Type rosuvastatin 20 mg tablet 20 mg PO QHS 01/09/22 07/26/24 His tory albuterol sulfate 90 mcg/actuation 2 puff inhalation Q6H PRN 07/26/24 History aerosol inhaler shortness of breath or wheezing bupropion HCl 150 mg tablet,12 hr 150 mg PO BID 06/23/24 07/26/24 H istory sustained-release (Wellbutrin SR) escitalopram oxalate 10 mg tablet 10 mg PO QHS 06/23/24 07/26/24 Hi story (Lexapro) hydrocortisone 2.5 % topical 1 applic topical BID-TID PRN 06/2307/26/24 History ointment itching lactobacillus combination no.9 4 4,000 mmu cells PO QDAY 06/23/24 0 07/26/24 History billion cell capsule (Adult 50 Plus Probiotic) multivitamin (Daily Multi-Vitamin 1 tab PO DAILY 07/06/24 07/26/24 History tablet) cholecalciferol (vitamin D3) 125 125 mcg PO QDAY 07/20/24 07/26/24 History mcg (5,000 unit) capsule pantoprazole 20 mg tablet,delayed 20 mg PO QDAY 07/26/24 07/26/24 H istory release (Protonix) Ejection fraction %: 60 Have you fallen in the past year?: No PFSH Medical History Wears glasses Arthritis Shortness of breath on exertion Leg cramps Change in bowel habit Generalized abdominal pain Heart murmur Dyspnea on exertion Post-menopausal High cholesterol Back pain Syncope Gastric reflux Smoker BiPAP (biphasic positive airway pressure) dependence Asthma History of echocardiogram History of stress test Cardiology follow-up encounter Hyperlipidemia Skin cancer Anxiety and depression Surgical History History of esophagogastroduodenoscopy (EGD) Hx of colonoscopy Cyst Removal from breast History of LAVH Hx of appendectomy Family History Mother Breast cancer Hypertension Aunt Breast cancer Brother Hypertension Father Atrial fibrillation Social History Smoking Status: Current every day smoker tobacco type: cigarettes alcohol intake: never substance use type: does not use caffeine: Yes what type of physical activity do you participate in: walking frequency: 3-4 times per week seatbelt use: always do you feel safe at home: Yes additional social history: , Just moved back from the [facility] ROS Const Const: Negative for fatigue, weakness, headache(s) or frequent falls Eyes (more content not included)... Normal [facility] Pulmonary Visit Reporton Pulmonary Visit Report [facility] [address] [place] [address] OFFICE VISIT Date of Service: 07/20/24 MR#: [id number] Acct: [id number] Name: MARY AGUILERA Rep #: [id number] : 1960 Provider: IRWIN Pickering Age/Sex: 63/F Location: [facility] [place] Status: Signed Assessment and Plan Assessment and Plan (1) MARYANN (obstructive sleep apnea): Status: Chronic Comment: AHI 21.2 Plan: Deteriorated. The patient is not happy with PAP therapy. She is not feeling more rested. She does not like wearing it. She is not able to be compliant enough to receive benefit from it. We discussed treatment alternatives, she would like to be evaluated for a mandibular advancement device. To move forward with this, we will need to repeat a polysomnogram. Ordered accordingly. Once test results are available for review I will send the referral for a dentist to treat sleep apnea. (2) Smoking greater than 20 pack years: Status: Chronic Comment: 40 years, currently smoking 1/2 pack/day Plan: Deteriorated, the patient has resumed smoking again. Highly encouraged complete smoking cessation, especially given ongoing concern for possible lung cancer. (3) Lung nodule: Status: Chronic Comment: 8 mm left lower lobe pleural-based Plan: No change. Will repeat diagnostic CT of the chest in 3 months. Return to the office in 4 months to discuss test results. If the nodule is again unchanged, we will plan to continue surveillance by repeating a CT of the chest in 6 months. Orders: Orders Polysomnography Today G47.33 - Obstructive sleep apnea (adult) (pediatric) Chest without Contrast 09/19/24 R91.1 - Solitary pulmonary nodule Plan Details Additional Comments: This note was generated with RECUPYL dictation software. It may contain incorrect words, spelling, and punctuation that were not noted in checking the note before signing. Follow Up: 09/20/24 ([facility] HPI 4 M FU Chief Complaint: Test results HPI Comments Details: This patient presents to the office today for follow-up of her obstructive sleep apnea and to discuss test results. She is ambulatory and currently on room air. She has not recently been seen in the ED or urgent care for any respiratory illness. She has not required any antibiotics or prednisone for any breathing problems. She admits that she has resumed smoking. She is currently smoking 1/2 pack/day. She admits that she had quit smoking completely for several weeks but has been smoking again for the past 3 months. She is not currently on any maintenance inhalers. She does use albuterol rescue inhaler a couple times per year, more frequently in the winter. She reports shortness of breath on exertion. She has been experiencing a cough productive of clear to white-colored sputum, she denies any hemoptysis. She denies any wheezing, chest tightness, chest pain or palpitations. She also denies any fever, chills or body aches. She is not always feeling rested with the use of her PAP device. She is experiencing very vivid dreams that are usually about very stressful topics. She does not like wearing the PAP machine. She denies difficulty with dry mouth. She is not having excessive nocturia. She is not having morning headaches. She is not requiring naps. Compliance report for the past 30 days shows 77 % compliance with an average use of nearly 6 hours and 27 minutes per night. Current setting is BiPAP 11/7 cm of water with a backup rate of 12 breaths/min. Residual AHI of 5.6 events per hour. Leaks do not appear to be problematic. Test results personally reviewed the patient: CT of the chest without contrast completed on June 20, 2024. Emphysema is noted. Stable 8 mm pulmonary nodule in the left lower lobe. Recommendation is to repeat CT of the chest in 3 to 6 months. Intake Vital Signs 03/21/24 07:50 07/20/24 08:00 Height 5 ft 3 in 5 ft 3 in Weight: 154 lb BMI 27.3 BP 112/77 Blood Pressure Location Rt brachial Position Sitting Respiration 18 Pulse 68 Pulse Source Monitor Temp 97.4 F L Temperature Source Temporal Artery Pulse Oximetry (%) 95 Oxygen Delivery Method room air Intake Visit Reasons: 4 M FU Chief Complaint: discuss EGD Cutter Grinder Required: No DME Vendor: Blaise Accompanied by: Self Allergies penicillin G Allergy (Mild, Verified 07/20/24 13:09) Swelling Medications ???Medication ???Instructions ???Recorded ???Confirmed ???Type rosuvastatin 20 mg tablet 20 mg PO QHS 01/09/22 07/20/24 His tory albuterol sulfate 90 mcg/actuation 2 puff inhalation Q6H PRN 07/20/24 History aerosol inhaler shortness of breath or wheezing escitalopram oxalate 20 mg tablet 20 mg PO QDAY 11/09/23 07/20/24 H istory bupropion HCl 150 mg tablet,12 hr 150 mg PO BID (more content not included)... Normal [facility] Absolute lymphocyte countOrd ered By: [facility] Marsha Mendez on 07-19-2024 Lymphocytes Auto (Unsp spec) [#/Vol] 1.91 10*3/uL 0.83-4.51 [facility] Absolute neutrophil countOrd ered By: [facility] Marsha Mendez on 07-19-2024 Neutrophils (Bld) [#/Vol] 5.9 10*3/uL 2.0-7.7 [facility] Anion gap in Serum or Plasma Ordered By: [facility] Marsha Liu on 07-19-2024 Anion gap [Moles/Vol] 11 mmol/L 5- [facility] Automated lymphocyte count a s percentage of total leukocytesOrdered By: [facility] Marsha Liu on 07-19-2024 Lymphocytes/100 WBC Auto (Unsp spec) 21.3 % - [facility] BUN/creatinine ratioOrdered By: [facility] on 07-19-2024 Urea nitrogen/Creatinine [Mass ratio] 15.1 mg/mg 10- [facility] Basophil percentageOrdered B y: [facility] Marsha Liu on 07-19-2024 Basophils/100 WBC (Bld) 0.7 % 0-1 [facility] Bilirubin, totalOrdered By: [facility] Marsha Liu on 07-19-2024 Bilirubin [Mass/Vol] 0.57 mg/dL 0.00-1.30 [facility] CBC W/Diff, Automatedon 06-22 Absolute Lymph 1.91 X10 3/uL Normal 0.83-4.51 [facility] Comment on above: Performed By: #### L [id number], [id number], L100.0100, L506.1001, L500.4100, L500.4050 ####[facility] [address] [place], [address] Absolute Neut 5.9 X10 3/uL Normal 2.0-7.7 [facility] Comment on above: Performed By: #### L [id number], [id number], L100.0100, L506.1001, L500.4100, L500.4050 ####[facility] [address] [place], [address] Basophils/100 WBC (Bld) 0.7 % Normal 0-1 [facility] Comment on above: Performed By: #### L [id number], [id number], L100.0100, L506.1001, L500.4100, L500.4050 ####[facility] [address] [place], [address] Eosinophils/100 WBC (Bld) 2.8 % Normal 0-5 [facility] Comment on above: Performed By: #### L [id number], [id number], L100.0100, L506.1001, L500.4100, L500.4050 ####[facility] [address] [place], [address] Erythrocyte distribution width (RBC) [Ratio] 13.2 % Normal 11.6-14.6 [facility] Comment on above: Performed By: #### L [id number], [id number], L100.0100, L506.1001, L500.4100, L500.4050 ####[facility] [address] [place], [address] Hematocrit (Bld) [Volume fraction] 39.6 % Normal 37-47 [facility] Comment on above: Performed By: #### L [id number], [id number], L100.0100, L506.1001, L500.4100, L500.4050 ####[facility] [address] [place], [address] Hemoglobin (Bld) [Mass/Vol] 13.0 g/dL Normal 12.0-15.0 [facility] Comment on above: Performed By: #### L [id number], [id number], L100.0100, L506.1001, L500.4100, L500.4050 ####[facility] [address] [place], [address] IG% 0.200 Normal 0.0-0.9 [facility] Comment on above: Result Comment: IG% - Immature Granulocytes (promyelocytes, myelocytes and metamyelocytes) > 1% indicates that a LEFT SHIFT is Present. Performed By: #### L 501.9520, L501.5200, L100.0100, L506.1001, L500.4100, L500.4050 ####[facility] [address] [place], [address] Lymphocytes/100 WBC (Bld) 21.3 % Normal 19-41 [facility] Comment on above: Performed By: #### L [id number], [id number], L100.0100, L506.1001, L500.4100, L500.4050 ####[facility] [address] [place], [address] MCH (RBC) [Entitic mass] 29.3 pg Normal 27.0-32.0 [facility] Comment on above: Performed By: #### L [id number], [id number], L100.0100, L506.1001, L500.4100, L500.4050 ####[facility] [address] [place], [address] MCHC (RBC) [Mass/Vol] 32.8 g/dL Normal 32-36 [facility] Comment on above: Performed By: #### L [id number], [id number], L100.0100, L506.1001, L500.4100, L500.4050 ####[facility] [address] [place], [address] MCV (RBC) [Entitic vol] 89.2 fL Normal 81-99 [facility] Comment on above: Performed By: #### L [id number], [id number], L100.0100, L506.1001, L500.4100, L500.4050 ####[facility] [address] [place], [address] Monocytes/100 WBC (Bld) 9.4 % Normal 0-10 [facility] Comment on above: Performed By: #### L [id number], [id number], L100.0100, L506.1001, L500.4100, L500.4050 ####[facility] [address] [place], [address] Neutrophils/100 WBC (Bld) 65.6 % Normal 47-70 [facility] Comment on above: Performed By: #### L [id number], [id number], L100.0100, L506.1001, L500.4100, L500.4050 ####[facility] [address] [place], [address] Nucleated RBC (Bld) [#/Vol] 0 10*3/uL Normal 0-5 [facility] Comment on above: Performed By: #### L [id number], [id number], L100.0100, L506.1001, L500.4100, L500.4050 ####[facility] [address] [place], [address] Platelet mean volume (Bld) [Entitic vol] 10.2 fL Normal 6.2-12.0 [facility] Comment on above: Performed By: #### L [id number], [id number], L100.0100, L506.1001, L500.4100, L500.4050 ####[facility] [address] [place], [address] Platelets (Bld) [#/Vol] 321 10*3/uL Normal 150-450 [facility] Comment on above: Performed By: #### L [id number], [id number], L100.0100, L506.1001, L500.4100, L500.4050 ####[facility] [address] [place], [address] RBC (Bld) [#/Vol] 4.44 10*6/uL Normal 4.2-5.4 [facility] Comment on above: Performed By: #### L 501.9520, [id number], L100.0100, L506.1001, L500.4100, L500.4050 ####[facility] [address] [place], [address] RDW SD 43.7 fl Normal 35.1-43.9 [facility] Comment on above: Performed By: #### L [id number], [id number], L100.0100, L506.1001, L500.4100, L500.4050 ####[facility] [address] [place], [place], [phone]) WBC (Bld) [#/Vol] 9.0 10*3/uL Normal 4.4-11.0 [facility] Comment on above: Performed By: #### L 501.9520, [id number], L100.0100, L506.1001, L500.4100, L500.4050 ####[facility] [address] [place], [place], [id number] Calculated very low density lipoprotein (VLDL) cholesterol measurementOrdered By: [facility] Marsha Mendez on 07-19-2024 Calculated very low density lipoprotein (VLDL) cholesterol measurement 14 mg/dL 5-40 [facility] Carbon dioxide, total [Moles /volume] in Central venous bloodOrdered By: [facility] Marsha Mendez on 07-19-2024 CO2 [Moles/Vol] 22.5 mmol/L 21.0-32.0 [facility] Chloride assayOrdered By: [facility] Marsha Mendez on 07-19-2024 Chloride [Moles/Vol] 105 mmol/L 98-108 [facility] Comprehensive Metabolic Prof ilon 07-19-2024 Albumin [Mass/Vol] 4.4 g/dL Normal 3.4-4.8 [facility] Comment on above: Performed By: #### L 501.9520, L501.5200, L100.0100, L506.1001, L500.4100, L500.4050 ####[facility] [address] [place], [address] Albumin/Globulin [Mass ratio] 1.4 {ratio} Normal 0.9-2.4 [facility] Comment on above: Performed By: #### L [id number], [id number], L100.0100, L506.1001, L500.4100, L500.4050 ####[facility] [address] [place], [address] ALK PHOS 79 U/L Normal 35-104 [facility] Comment on above: Performed By: #### L 501.9520, [id number], L100.0100, L506.1001, L500.4100, L500.4050 ####[facility] [address] [place], [address] ALT [Catalytic activity/Vol] 16 U/L Normal <=34 [facility] Comment on above: Performed By: #### L 501.9520, [id number], L100.0100, L506.1001, L500.4100, L500.4050 ####[facility] [address] [place], [address] AST [Catalytic activity/Vol] 22 U/L Normal <=31 [facility] Comment on above: Performed By: #### L 501.9520, [id number], L100.0100, L506.1001, L500.4100, L500.4050 ####[facility] [address] [place], [address] Bilirubin [Mass/Vol] 0.57 mg/dL Normal 0.00-1.30 [facility] Comment on above: Performed By: #### L 501.9520, L501.5200, L100.0100, L506.1001, L500.4100, L500.4050 ####[facility] [address] [place], [address] BUN/CRE 15.1 RATIO Normal 10-20 [facility] Comment on above: Performed By: #### L 501.9520, [id number], L100.0100, L506.1001, L500.4100, L500.4050 ####[facility] [address] [place], [address] Calcium [Mass/Vol] 9.5 mg/dL Normal 7.6-11.0 [facility] Comment on above: Performed By: #### L 501.9520, L501.5200, L100.0100, L506.1001, L500.4100, L500.4050 ####[facility] [address] [place], [address] Chloride [Moles/Vol] 105 mmol/L Normal 98-108 [facility] Comment on above: Performed By: #### L 501.9520, [id number], L100.0100, L506.1001, L500.4100, L500.4050 ####[facility] [address] [place], [address] CO2 [Moles/Vol] 22.5 mmol/L Normal 21.0-32.0 [facility] Comment on above: Performed By: #### L 501.9520, L501.5200, L100.0100, L506.1001, L500.4100, L500.4050 ####[facility] [address] [place], [address] Creatinine [Mass/Vol] 0.96 mg/dL Normal 0.70-1.20 [facility] Comment on above: Performed By: #### L 501.9520, L501.5200, L100.0100, L506.1001, L500.4100, L500.4050 ####[facility] [address] [place], [address] GAP 11 Normal 5-15 [facility] Comment on above: Performed By: #### L 501.9520, L501.5200, L100.0100, L506.1001, L500.4100, L500.4050 ####[facility] [address] [place], [address] GFR/1.73 sq M.predicted among non-blacks MDRD (S/P/Bld) [Vol rate/Area] 66 mL/min/{1.73_m2} Normal >60 [facility] Comment on above: Result Comment: mL/m in/1.73m2 CKD-EPI Creatinine Equation (2020) Performed By: #### L 501.9520, L501.5200, L100.0100, L506.1001, L500.4100, L500.4050 ####[facility] [address] [place], [address] Globulin (S) [Mass/Vol] 3.1 g/dL Normal 2.2-4.2 [facility] Comment on above: Performed By: #### L 501.9520, L501.5200, L100.0100, L506.1001, L500.4100, L500.4050 ####[facility] [address] [place], [address] Glucose [Mass/Vol] 95 mg/dL Normal 70-99 [facility] Comment on above: Performed By: #### L 501.9520, L501.5200, L100.0100, L506.1001, L500.4100, L500.4050 ####[facility] [address] [place], [address] Potassium [Moles/Vol] 4.2 mmol/L Normal 3.3-5.1 [facility] Comment on above: Performed By: #### L 501.9520, L501.5200, L100.0100, L506.1001, L500.4100, L500.4050 ####[facility] [address] [place], [address] Sodium [Moles/Vol] 139 mmol/L Normal 133-145 [facility] Comment on above: Performed By: #### L 501.9520, L501.5200, L100.0100, L506.1001, L500.4100, L500.4050 ####[facility] [address] [place], [address] T PROT 7.5 g/dL Normal 5.9-8.4 [facility] Comment on above: Performed By: #### L 501.9520, L501.5200, L100.0100, L506.1001, L500.4100, L500.4050 ####[facility] [address] [place], [address] Urea nitrogen [Mass/Vol] 14 mg/dL Normal 4-19 [facility] Comment on above: Performed By: #### L 501.9520, L501.5200, L100.0100, L506.1001, L500.4100, L500.4050 ####[facility] [address] [place], [address] Eosinophil percentageOrdered By: [facility] Marsha Mendez on 07-19-2024 Eosinophils/100 WBC (Bld) 2.8 % 0-5 [facility] Erythrocyte distribution wid th ratioOrdered By: [facility] Marsha Mendez on 07-19-2024 Erythrocyte distribution width (RBC) [Ratio] 13.2 % 11.6-14.6 [facility] Erythrocyte distribution wid th standard deviationOrdered By: [facility] Marsha Mendez on 07-19-2024 Erythrocyte distribution width (RBC) [Ratio] 43.7 fl 35.1-43.9 [facility] Glomerular filtration rate ( GFR) estimation/1.73 sq m using serum, plasma, or whole bOrdered By: [facility] Marsha Mendez on 07-19-2024 GFR/1.73 sq M.predicted among non-blacks MDRD (S/P/Bld) [Vol rate/Area] 66 mL/min/{1.73_m2} >60 [facility] Comment on above: mL/min/1.73m2 CKD-EP I Creatinine Equation (2020) Hematocrit Auto (Bld) [Volum e fraction]Ordered By: [facility] Marsha Mendez on 07-19-2024 Hematocrit (Bld) [Volume fraction] 39.6 % 37-47 [facility] Hemoglobin measurementOrdere d By: [facility] Marsha Mendez on 07-19-2024 Hemoglobin (Bld) [Mass/Vol] 13.0 g/dL 12.0-15.0 [facility] Immature granulocytes/100 WB C Auto (Bld)Ordered By: [facility] Marsha Mendez on 07-19-2024 Immature granulocytes/100 WBC (Bld) 0.200 % 0.0-0.9 [facility] Comment on above: IG% - Immature Granu locytes (promyelocytes, myelocytes and metamyelocytes) > 1% indicates that a LEFT SHIFT is Present. LDL calc ser/plasOrdered By: [facility] Marsha Mendez on 07-19-2024 Cholesterol in LDL [Mass/Vol] 88 mg/dL [facility] Comment on above: Kbdnmeedlx=542-133 m g/dL & Higher Rxhb=008 mg/dL or greater Laboratory - Chemistry and C hemistry - challengeOrdered By: [facility] Marsha Mendez on 07-19-2024 AST [Catalytic activity/Vol] 22 U/L <32 [facility] Lipid Profileon 07-19-2024 CHOL:HDL 3.23 Normal [facility] Comment on above: Performed By: #### L 501.9520, L501.5200, L100.0100, L506.1001, L500.4100, L500.4050 ####[facility] [address], [address] Cholesterol [Mass/Vol] 148 mg/dL Normal <=200 [facility] Comment on above: Result Comment: Chol esterol level, Desirable <200 mg/dL Borderline high cholesterol 200-239 mg/dL High cholesterol >=240 mg/dL Recommendations of the NCEP Adult Treatment Panel for the following risk-cutoff thresholds for the [place] population. Performed By: #### L 501.9520, L501.5200, L100.0100, L506.1001, L500.4100, L500.4050 ####[facility] [address] [place], [address] Cholesterol in HDL [Mass/Vol] 46 mg/dL Normal [facility] Comment on above: Result Comment: [place] onal Cholesterol Education Program (NCEP) guidelines: <40 mg/dL: Low HDL-cholesterol (major risk factor for CHD) >= 60 mg/dL: High HDL-cholesterol (negative risk factor for CHD) HDL-cholesterol is affected by a number of factors, e.g. smoking, exercise, hormones, sex and age. Performed By: #### L 501.9520, L501.5200, L100.0100, L506.1001, L500.4100, L500.4050 ####[facility] [address] [place], [address] Cholesterol in LDL [Mass/Vol] 88 mg/dL Normal [facility] Comment on above: Result Comment: Bord nsylxz=178-768 mg/dL Higher Tmbg=176 mg/dL or greater Performed By: #### L 501.9520, L501.5200, L100.0100, L506.1001, L500.4100, L500.4050 ####[facility] [address] [place], [address] Cholesterol in VLDL [Mass/Vol] 14 mg/dL Normal 5-40 [facility] Comment on above: Performed By: #### L 501.9520, L501.5200, L100.0100, L506.1001, L500.4100, L500.4050 ####[facility] [address] [place], [address] Triglyceride [Mass/Vol] 72 mg/dL Normal [facility] Comment on above: Result Comment: The drugs N-Acetylcysteine and Metamizole may falsely depress this assay. Normal range: <150 mg/dL Borderline High: 150-199 mg/dL High: 200-499 mg/dL Very High: >500 mg/dL Performed By: #### L 501.9520, L501.5200, L100.0100, L506.1001, L500.4100, L500.4050 ####[facility] [address] [place], [address] MCV (mean corpuscular volume ) determinationOrdered By: [facility] Marsha Mendez on 07-19-2024 MCV (RBC) [Entitic vol] 89.2 fL 81-99 [facility] Magnesiumon 07-19-2024 Magnesium [Mass/Vol] 2.3 mg/dL High 1.5-2.2 [facility] Comment on above: Performed By: #### L 501.9520, L501.5200, L100.0100, L506.1001, L500.4100, L500.4050 ####[facility] [address] [place], [address] Magnesium measurement (mass/ volume)Ordered By: [facility] Marsha Mendez on 07-19-2024 Magnesium (Unsp spec) [Mass/Vol] 2.3 mg/dL High 1.5-2.2 [facility] Mean corpuscular hemoglobin (MCH) determinationOrdered By: [facility] Marsha Mendez on 07-19-2024 MCH (RBC) [Entitic mass] 29.3 pg 27.0-32.0 [facility] Mean corpuscular hemoglobin concentration (MCHC) determinationOrdered By: [facility] Marsha Mendez on 07-19-2024 MCHC (RBC) [Mass/Vol] 32.8 g/dL 32-36 [facility] Mean platelet volume determi nationOrdered By: [facility] Marsha Mendez on 07-19-2024 Platelet mean volume (Bld) [Entitic vol] 10.2 fL 6.2-12.0 [facility] Monocyte percentageOrdered B y: [facility] Marsha Mendez on 07-19-2024 Monocytes/100 WBC (Bld) 9.4 % 0-10 [facility] Neutrophil percentageOrdered By: [facility] Marsha Mendez on 07-19-2024 Neutrophils/100 WBC (Bld) 65.6 % 47-70 [facility] Nucleated red blood cell per centageOrdered By: [facility] Marsha Mendez on 07-19-2024 Nucleated RBC/100 WBC (Bld) [Ratio] 0 % 0-5 [facility] Platelet countOrdered By: [facility] Marsha Mendez on 07-19-2024 Platelets (Bld) [#/Vol] 321 10*3/uL 150-450 [facility] Potassium measurement (mass/ volume)Ordered By: [facility] Marsha Mendez on 07-19-2024 Potassium (Unsp spec) [Mass/Vol] 4.2 mmol/L 3.3-5.1 [facility] RBC Auto (Bld) [#/Vol]Ordere d By: [facility] Marsha Mendez on 07-19-2024 RBC (Bld) [#/Vol] 4.44 10*6/uL 4.2-5.4 [facility] [facility] Screening total cholesterol/ high density lipoprotein (HDL) cholesterol ratioOrdered By: [facility] Marsha Mendez on 07-19-2024 Cholesterol.total/Chol esterol in HDL [Mass ratio] 3.23 {ratio} [facility] Serum creatinine measurement (mass/volume)Ordered By: [facility] Marsha Mendez on 07-19-2024 Creatinine [Mass/Vol] 0.96 mg/dL 0.70-1.20 [facility] Serum globulin measurementOr dered By: [facility] Marsha Mendez on 07-19-2024 Globulin (S) [Mass/Vol] 3.1 g/dL 2.2-4.2 [facility] Serum glucose measurement (m ass/volume)Ordered By: [facility] Marsha Mendez on 07-19-2024 Glucose [Mass/Vol] 95 mg/dL 70-99 [facility] Serum or plasma alanine dow otransferase (ALT) measurementOrdered By: [facility] Marsha Mendez on 07-19-2024 ALT [Catalytic activity/Vol] 16 U/L <35 [facility] Serum or plasma albumin abdi urement (mass/volume)[facility] 07-[facility]24 Albumin [Mass/Vol] 4.4 g/dL 3.4-4.8 [facility] Serum or plasma albumin/glob ulin mass ratioOrdered By: [facility] on 07-19-2024 Albumin/Globulin [Mass ratio] 1.4 {ratio} 0.9-2.4 [facility] Serum or plasma alkaline donovan sphatase measurementOrdered By: [facility] 07-19-2024 ALP [Catalytic activity/Vol] 79 U/L 35-104 [facility] Serum or plasma calcium abdi urement (mass/volume)[facility]: [facility] 07-[facility]-2024 Calcium [Mass/Vol] 9.5 mg/dL 7.6-11.0 [facility] Serum or plasma cholesterol in HDL measurement (mass/volume)Or[facility] By: [facility] 07-19-2024 Cholesterol in HDL [Mass/Vol] 46 mg/dL >40 [facility] Comment on above: National Cholesterol Education Program (NCEP) guidelines:<40 mg/dL: Low HDL-cholesterol (major risk factor for CHD)>= 60 mg/dL: High HDL-cholesterol (negative risk factor for CHD)HDL-cholesterol is affected by a number of factors, e.g. smoking, exercise, hormones, sex and age. Serum or plasma cholesterol measurement (mass/volume)Ordered By: [facility] on 07-19-2024 Cholesterol [Mass/Vol] 148 mg/dL <201 [facility] Comment on above: Cholesterol level, D esirable <200 mg/dLBorderline high cholesterol 200-239 mg/dLHigh cholesterol >=240 mg/dLRecommendations of the NCEP Adult Treatment Panel for the following risk-cutoff thresholds for the [place] population. Serum or plasma urea nitroge n measurement (mass/volume)Ordered By: [facility] on 07-19-2024 Urea nitrogen [Mass/Vol] 14 mg/dL 4-19 [facility] Sodium levelOrdered By: [facility] Marsha Liu on 07-19-2024 Sodium [Moles/Vol] 139 mmol/L 133-145 [facility] TSH DL <= 0.005 mIU/L QnOrde red By: [facility] Marsha Liu on 07-19-2024 TSH Qn 0.683 uIU/mL 0.300-4.20 0 [facility] Thyroid Stim Hormone (TSH)on 07-19-2024 TSH 0.683 uIU/mL Normal 0.300-4.20 0 [facility] Comment on above: Performed By: #### L 501.9520, L501.5200, L100.0100, L506.1001, L500.4100, L500.4050 ####[facility] [id number] [place], [place], [id number] Total proteinOrdered By: [facility] Marsha Liu on 07-19-2024 Protein [Mass/Vol] 7.5 g/dL 5.9-8.4 [facility] Triglycerides measurementOrd ered By: [facility] Marsha Liu on 07-19-2024 Triglyceride [Mass/Vol] 72 mg/dL <199 [facility] Comment on above: The drugs N-Acetylcy steine and Metamizole may falsely depress this assay. Normal range: <150 mg/dLBorderline High: 150-199 mg/dLHigh: 200-499 mg/dLVery High: >500 mg/dL Vitamin D,25 Hydroxyon 07-19 Vitamin D 25-OH 44.1 ng/mL Normal 30-100 [facility] Comment on above: Result Comment: Allison min D Status Deficiency: <20 ng/mL (50nmol/L) Insufficiency: 20-30 ng/mL (50-75 nmol/L) Sufficiency: 30-100 ng/mL (75-250 nmol/L) Toxicity: >100 ng/mL (>250 nmol/L) Performed By: #### L 501.9520, L501.5200, L100.0100, L506.1001, L500.4100, L500.4050 ####[facility] [id number] [place], [address] White blood cell (WBC) count Ordered By: [facility] Marsha Mendez on 07-19-2024 WBC (Bld) [#/Vol] 9.0 10*3/uL 4.4-11.0 [facility] Colonoscopy Reporton 025 Colonoscopy Report [facility] Medical Records Department [address] [place] [address] Colonoscopy Report MR#: [id number] Acct: [id number] Name: MARY AGUILERA Rep #: [id number] : 1960 63 From: Blanco Ayala MD PCP: Marsha Mendez [facility], LICENSE CLERK-C Status[place] [facility] Patient Name: Mary Aguilera Procedure Date: 07/11/2024 10:46 AM Date of : 1960 Age: 63 Procedure: Colonoscopy Indications: Generalized abdominal pain Providers: Blanco Ayala MD Referring MD: Blanco Ayala MD Medicines: See the Anesthesia note for documentation of the administered medications Patient Profile: Patient has symptoms of acute abdominal cramping, acute epigastric abdominal pain and acute nausea. Last Colonoscopy: 7years ago. Complications: No immediate complications. Estimated blood loss: Minimal. Procedure: Pre-Anesthesia Assessment: - The heart rate, respiratory rate, oxygen saturations, blood pressure, adequacy of pulmonary ventilation, and response to care were monitored throughout the procedure. - The heart rate, respiratory rate, oxygen saturations, blood pressure, adequacy of pulmonary ventilation, and response to care were monitored throughout the procedure. After I obtained informed consent, the scope was passed under direct vision. Throughout the procedure, the patient's blood pressure, pulse, and oxygen saturations were monitored continuously. The colonoscope was introduced through the anus and advanced to the cecum, identified by transillumination. The colonoscopy was somewhat difficult due to a tortuous colon. Successful completion of the procedure was aided by using scope torsion. The patient tolerated the procedure well. The quality of the bowel preparation was adequate to identify polyps greater than 5 mm in size. Scope In: 10:47:09 AM Scope Withdrawal Time 0 hours 28 minutes 33 seconds Scope Out: 11:29:00 AM Total Procedure Duration Time 0 hours 41 minutes 51 seconds Findings: A 15 mm, non-bleeding polyp was found in the ascending colon. The polyp was semi-sessile. The polyp was removed with a hot snare. Resection and retrieval were complete. Estimated blood loss was minimal. A 5 mm, non-bleeding polyp was found in the proximal transverse colon. The polyp was semi-sessile. The polyp was removed with a hot snare. Resection and retrieval were complete. Estimated blood loss: none. Four sessile, non-bleeding polyps were found in the rectum. The polyps were 3 to 4 mm in size. Biopsies were taken with a cold forceps for histology. Estimated blood loss was minimal. The entire examined colon appeared normal on direct and retroflexion views. Impression: - One 15 mm, non-bleeding polyp in the ascending colon, removed with a hot snare. Resected and retrieved. - One 5 mm, non-bleeding polyp in the proximal transverse colon, removed with a hot snare. Resected and retrieved. - Four 3 to 4 mm, non-bleeding polyps in the rectum. Biopsied. - The entire examined colon is normal on direct and retroflexion views. Recommendation: - Discharge patient to home (via wheelchair). - Resume previous diet today. - No aspirin, ibuprofen, naproxen, or other non-steroidal anti-inflammatory drugs for 2 days after biopsy. - Await pathology results. - Repeat colonoscopy date to be determined after pending pathology results are reviewed for surveillance based on pathology results. - Telephone my office for pathology results in 1 week. Procedure Code(s): --- Professional --- 12765, Colonoscopy, flexible; with removal of tumor(s), polyp(s), or other lesion(s) by snare technique 00359, 59, Colonoscopy, flexible; with biopsy, single or multiple Diagnosis Code(s): --- Professional --- D12.2, Benign neoplasm of ascending colon D12.3, Benign neoplasm of transverse colon (hepatic flexure or splenic flexure) D12.8, Benign neoplasm of rectum R10.84, Generalized abdominal pain CPT copyright 2021 [employer]. All rights reserved. The codes documented in this report are preliminary and upon data processing operator review may be revised to meet current compliance requirements. Blanco Ayala MD 07/11/2024 12:41:10 PM This report has been signed electronically. Number of Addenda: 0 Note Initiated On: 07/11/2024 10:46 AM 07/11/24 1241 Date Blanco Ayala MD Cosigner Signature: Date (if indicated) CC: SLOAN LICENSE CLERK-C Marsha Mendez; Dr. Blanco Ayala MD Date Dictated: 07/11/24 1046 Date Transcribed: Pellet Post Inspector: KRISTIN Signed Normal [facility] EGD Reporton 07-11-2024 EGD Report [facility] Medical Records Department [address] [place] [id number] EGD Report MR#: [id number] Acct: [id number] Name: MARY AGUILERA Rep #: [id number] : 1960 63 From: Blanco Ayala MD PCP: SLOAN Vaca, LICENSE CLERK-C Status:REG [facility] Patient Name: Mary Aguilera Procedure Date: 07/11/2024 10:18 AM Date of : 1960 Age: 63 Procedure: Upper GI endoscopy Indications: Epigastric abdominal pain, Abdominal bloating, Nausea Providers: Blanco Ayala MD Referring MD: Blanco Ayala MD Medicines: See the Anesthesia note for documentation of the administered medications Patient Profile: Patient has symptoms of acute abdominal cramping, acute epigastric abdominal pain and acute nausea. Complications: No immediate complications. Estimated blood loss: Minimal. Procedure: Pre-Anesthesia Assessment: - The heart rate, respiratory rate, oxygen saturations, blood pressure, adequacy of pulmonary ventilation, and response to care were monitored throughout the procedure. After obtaining informed consent, the endoscope was passed under direct vision. Throughout the procedure, the patient's blood pressure, pulse, and oxygen saturations were monitored continuously. The Endoscope was introduced through the mouth, and advanced to the second part of duodenum. The upper GI endoscopy was accomplished without difficulty. The patient tolerated the procedure well. Scope In: 10:30:15 AM Scope Out: 10:44:23 AM Total Procedure Duration Time 0 hours 14 minutes 8 seconds Findings: Localized nodular mucosa was found in the duodenal bulb. Biopsies were taken with a cold forceps for histology. Estimated blood loss was minimal. Localized mildly erythematous mucosa without bleeding was found in the gastric antrum. Biopsies were taken with a cold forceps for histology. Estimated blood loss was minimal. Localized mildly erythematous mucosa without bleeding was found in the gastric body. Estimated blood loss was minimal. One 3 mm semi-sessile polyp with no bleeding and no stigmata of recent bleeding was found in the gastric body. Biopsies were taken with a cold forceps for histology. Estimated blood loss was minimal. The Z-line was regular and was found 38 cm from the incisors. No biopsies or other specimens were collected for this exam. A single 3 mm plaque was found in the middle third of the esophagus. Biopsies were taken with a cold forceps for histology. Estimated blood loss was minimal. Impression: - Nodular mucosa in the duodenal bulb. Biopsied. - Erythematous mucosa in the antrum. Biopsied. - Erythematous mucosa in the gastric body. - One gastric polyp. Biopsied. - Z-line regular, 38 cm from the incisors. No specimens collected. - A single plaque in the middle third of the esophagus. Biopsied. Recommendation: - Discharge patient to home (via wheelchair). - Soft diet today. - Continue present medications. - No aspirin, ibuprofen, naproxen, or other non-steroidal anti-inflammatory drugs for 2 days after biopsy. - Await pathology results. - Telephone my office for pathology results in 1 week. Procedure Code(s): --- Professional --- 97351, Esophagogastroduodenoscopy, flexible, transoral; with biopsy, single or multiple Diagnosis Code(s): --- Professional --- K31.89, Other diseases of stomach and duodenum K31.7, Polyp of stomach and duodenum K22.89, Other specified disease of esophagus R10.13, Epigastric pain R14.0, Abdominal distension (gaseous) R11.0, Nausea CPT copyright 2021 [employer]. All rights reserved. The codes documented in this report are preliminary and upon data processing operator review may be revised to meet current compliance requirements. Blanco Ayala MD 07/11/2024 11:41:59 AM This report has been signed electronically. Number of Addenda: 0 Note Initiated On: 07/11/2024 10:18 AM 07/11/24 1142 Date Blanco Solis Signature: Date (if indicated) CC: [facility] LICENSE CLERK-C Marsha Mendez; Dr. Blanco Ayala MD Date Dictated: 07/11/24 1018 Date Transcribed: Pellet Post Inspector: KRISTIN Signed Normal [facility] Immunohistochemical Stainson 07-11-2024 Immunohistochemical Stains -------- Patient Age/Sex Location Account Attending Physician -------- MARY AGUILERA/F EN [id number] Dr. Blanco Ayala MD -------- Specimen: [id number] Received: 07/11/24 Status: ALLYSSA Ruggiero Num: [id number] Spec Type: EGD BIOPSY Subm Dr: Dr. Blanco Ayala MD HEADER OPERATION: Colonoscopy with polypectomy and hemostasis, EGD biopsy PRE-OP DIAGNOSIS: Abdominal discomfort, epigastric, GERD, diverticulosis, polyps TISSUE SUBMITTED: A- Duodenal bulb mucosa biopsy, B- Antrum biopsy, C- Gastric body biopsy, D- Linear erosion greater curvature biopsy, E- Mid esophageal plaque biopsy, F- Ascending colon polyp, G- Transverse colon polyp, H- Rectal polyp biopsy -------- MICROSCOPIC DIAGNOSIS A. Small bowel, duodenal bulb, biopsy: * Pyloroduodenal mucosa with prominent Danny's glands and villous blunting B. Stomach, antrum, biopsy: * Antral mucosa with mild chronic inflammation * No Helicobacter pylori organisms identified on H E or immunostained sections C. Stomach, gastric body, polyp, biopsy: * Polypoid oxyntic mucosa with mild chronic inflammation D. Stomach, greater curvature, erosion, biopsy: * Oxyntic mucosa with mild chronic inflammation * No morphologic evidence of Helicobacter pylori organisms E. Midesophagus, plaque, biopsy: * Benign squamous epithelium * Oxyntic mucosa with mild chronic inflammation, negative for goblet cells F. Ascending colon, polyp, biopsy: * Tubular adenoma G. Transverse colon, polyp, biopsy: * Tubular adenoma H. Rectum, polyp, biopsy: * Hyperplastic polyp MICROSCOPIC DESCRIPTION Slides are reviewed. These tests were developed and their performance characteristics determined by [facility]. They may not have been cleared or approved by the U.S. Food and Drug Administration. The FDA has determined that such clearance or approval is not necessary. The above immunohistochemical/dualISH markers are ordered and reviewed by the Pathologist. -------- Patient Age/Sex Location Account Attending Physician -------- MARY AGUILERA 63/F RONNI [id number] Dr. Blanco Ayala MD -------- GROSS DESCRIPTION A. Received in formalin in a container labeled with the patient's name, date of , and duodenal bulb mucosa biopsy is a 0.3 x 0.3 x 0.3 cm fragment of estevez-pink mucosal tissue. Submitted in toto in A1. B. Received in formalin in a container labeled with the patient's name, date of , and antrum biopsy is a 0.4 x 0.4 x 0.3 cm fragment of estevez-pink mucosal tissue. Submitted in toto in B1. C. Received in formalin in a container labeled with the patient's name, date of , and gastric body polyp biopsy are 2 estevez-pink fragments of mucosal tissue measuring 0.2 x 0.2 x 0.2 cm and 0.4 x 0.3 x 0.2 cm. Submitted in toto in C1. D. Received in formalin in a container labeled with the patient's name, date of , and linear erosion greater curvature biopsy are 2 estevez-pink fragments of mucosal tissue, each measuring 0.2 x 0.2 x 0.2 cm. Submitted in toto in D1. E. Received in formalin in a container labeled with the patient's name, date of , and mid esophageal plaque biopsy are multiple estevez-pink fragments of mucosal tissue measuring 0.6 x 0.5 x 0.2 cm in aggregate. Submitted in toto in E1. F. Received in formalin in a container labeled with the patient's name, date of , and ascending colon polyp are multiple estevez-pink fragments of mucosal tissue measuring 1.3 x 1.0 x 0.3 cm in aggregate. Submitted in toto in F1. G. Received in formalin in a container labeled with the patient's name, date of , and transverse colon polyp are 2 estevez-pink fragments of mucosal tissue, each measuring 0.2 x 0.2 x 0.2 cm. Submitted in toto in G1. H. Received in formalin in a container labeled with the patient's name, date of , and rectal polyp biopsy are 2 estevez-pink fragments of mucosal tissue measuring 0.2 x 0.2 x 0.2 cm and 0.4 x 0.2 x 0.2 cm. Submitted in toto in H1. [facility] 07/12/2024 [facility]:[id number] -------- Patient Age/Sex Location Account Attending Physician -------- MARY AGUILERA/F EN [id number] Dr. Blanco Ayala, (more content not included)... [facility] Comment on above: Performed By: #### P [facility] ####[facility] [id number] [place], [address] MR/POSTOP.ANEon 07-11-2024 MR/POSTOP.ANE [facility] Medical Records Department [address] [place] [address] Anesthesia Postop Eval I 07/11/24 1141 MR#: [id number] Acct: [id number] Name: MARY AGUILERA Rep #: [id number] : 1960 63 From: Denys Merritt PCP: SLOAN Vaca, LICENSE CLERK-C Status:[place] [facility] [place] Race: C Location: [place] [address] Anesthesia: Postop Eval I Current Vital Signs Temperature: 97 F Pulse Rate: 74 Blood Pressure: 100/60 Respiratory Rate: 16 Pulse Ox: 100 Oxygen Delivery Method: Room Air Assessment Airway patent: Yes Spontaneous unlabored respirations: Yes Mental status: Awake nausea: No Vomiting: No Anesthesia Complication: No Fluid Hydration Crystalloid volume administer (ml): 120 Total IV fluid infused: 120 Progress Note Anesthesia document: Postop Eval 1 completed: Yes 07/11/24 114 Date Denys Solis Signature: Date CC: Signed Normal [facility] MR/[id number] 07-11-2024 MR/POSTOPAN2 [facility] Medical Records Department [address] [place] [address] Anesthesia Postop Eval II 07/11/24 1235 MR#: [id number] Acct: [id number] Name: MARY AGUILERA Rep #: [id number] : 1960 63 From: Kane Zeng MD PCP: SLOAN [facility], LICENSE CLERK-C Status:REG SDC Y Race: C Location: [facility]-1 Anesthesia Postop Eval I Sum Postop Eval Completion status Anesthesia document: Postop Eval 1 completed: Yes Anesthesia Postop Eval I Summary Anesthesia Postop Eval I Summary: Anesthesia Postop Eval I: Assessment Summary Airway patent Yes 07/11/24 11:41 [email or web address] Spontaneous unlabored Yes 07/11/24 11:41 [email or web address] respirations Mental status Awake 07/11/24 11:41 [email or web address] nausea No 07/11/24 11:41 [email or web address] Vomiting No 07/11/24 11:41 [email or web address] Anesthesia Postop Eval I: Fluid Summary Crystalloid volume administer 120 07/11/24 11:41 [email or web address] (ml) Colloids volume administered ( ml) Blood Product volume administered (ml) Total IV fluid infused 120 07/11/24 11:41 [email or web address] Anesthesia Postop Eval I: Summary Notes Anesthesia Complication No 07/11/24 11:41 [email or web address] Anesthesia Complication Comment: Post-operative progress note Anesthesia: Postop Eval II Evaluation Mental status: Awake Pain Level: 0 nausea: No Vomiting: No 07/11/24 1235 Date Kane Zeng MD Cosign Signature: Date CC: Signed 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 When Was Last Pacemaker Check QUESTION #4 FULL TEXT: You/Your Family Experience fever (hyperthermia) with Anesthesia Last Oral Intake Last Oral intake: Last Oral Intake NPO since Meds taken in AM with sips of water? Meds patient instructed to take am of surgery PONV PONV - central stores attendant: PONV - central stores attendant Female Yes 07/06/24 10:35 HX of Motion Sickness No 07/06/24 10:35 HX of N/V After Surgery No 07/06/24 10:35 Non-Smoker No 07/06/24 10:35 Duration of Surgery greater No 07/06/24 10:35 than 60 minutes Number of Risk Factors 1 07/06/24 10:35 PONV Score Low Risk 07/06/24 10:35 Height Weight Height Weight: Anesthesia: Height Weight Height 5 ft 3 in 03/21/24 07:50 Respiratory Assessment Respiratory Assessment - central stores attendant: Respiratory Tract Infection Hx - central stores attendant Hx Respiratory Tract Infection No 07/06/24 10:35 STOP Sleep Apnea STOP Sleep Apnea - central stores attendant: STOP Sleep Apnea - central stores attendant Hx Hypertension No 07/06/24 10:35 Hx Sleep Apnea Yes 07/06/24 10:35 CPAP No 07/06/24 10:35 BIPAP Yes 07/06/24 10:35 Do you snore loudly (louder than talking or can be heard Do you often feel tired/ fatigued/ sleepy during daytime? Has anyone observed you stop breathing during sleep? STOP Results Positive 07/06/24 10:35 QUESTION #5 FULL TEXT : Do you snore loudly (louder than talking or can be heard through closed doors)? Tobacco Use History Tobacco Use History - central stores attendant: Tobacco Use History - central stores attendant Tobacco Use Smoking Status Current every day smoker 07/06/24 10:35 Hx Tobacco Use Yes 07/06/24 10:35 Years Smoking Packs Smoked per Day Smoking Cessation Date was within the last 15 years Hx Smoking Cessation Date Hx Smoking Cessation Counseling Hematologic Medial History Hematologic Hx - central stores attendant: Hematologic Medical Hx - documentation lead Hx of Blood Transfusion No 07/06/24 10:35 Hx of Transfusion in last 3 No 07/06/24 10:35 Months Date of Last Transfusion (if within last 3 months) Ever experience any problems No 07/06/24 10:35 with transfusion(s)? Specify any problems Hx of Preganancy in last 3 No 07/06/24 10:35 Months Nurse Filling Out Transfusion DSCHRIBER 07/06/24 10:35 Questions: Date: 07/06/24 07/06/24 10:35 Time: 10:36 07/06/24 10:35 Patient unable to answer at this time (ie. confused, unrespo /Reproduction History /Reproductive History - central stores attendant: /Reproductive Hx- central stores attendant Hx Now No 07/06/24 10:35 Gestational Age (in weeks): EDC: Hx Hx Para Hx Section SAB No 07/06/24 10:35 [facility] Medical History (Updated 07/06/24 @ 10:43 by Taylor Shah) Wears glasses Arthritis Shortness of breath on exertion Leg cramps Change in bowel habit Generalized abdominal pain Heart murmur Dyspnea on exertion Post-menopausal High cholesterol Back pain Syncope Gastric reflux Smoker BiPAP (biphasic positive airway pressure) dependence Asthma History of echocardiogram History of stress test Cardiology follow-up encounter Hyperlipidemia Skin cancer Anxiety and depression Home Medications ???Medication ???Instructions ???Recorded ???Last Taken ???Type rosuvastatin 20 mg tablet 20 mg PO QHS 01/09/22 Unknown Hist ory famotidine 20 mg tablet (Pepcid) 20 mg PO DAILY 04/09/22 Unknown Hi story albuterol sulfate 90 mcg/actuation 2 puff inhalation Q6H PRN Unknown History aerosol inhaler shortness of breath or wheezing escitalopram oxalate 20 mg tablet 20 mg PO QDAY 11/09/23 Unknown Hi story bupropion HCl 150 mg tablet,12 hr 15 (more content not included)... Normal [facility] Chest without Contraston Chest without Contrast [facility] Imaging Services [address] [place], [place] [address] Chest without Contrast MR#: [id number] Acct: [id number] Name: MARY AGUILERA Rep #: [id number] : [id number] F [id number] From: Pablo Lennon MD PCP: SLOAN Vaca, LICENSE CLERK-C Status: REG CLI Study: Chest without Contrast Date of Exam: 06/20/24 Exam# [id number] Ordering Dr: Melissa Pickering NP LICENSE CLERK-C EXAM: CT Chest Without Intravenous Contrast CLINICAL INDICATION: NEW 8 MM NNODULE IN SMOKER TECHNIQUE: Axial computed tomography images of the chest without intravenous contrast. This CT exam was performed using one or more of the following dose reduction techniques: automated exposure control, adjustment of the mA and/or kV according to patient size, and/or use of iterative reconstruction technique. COMPARISON: CT Chest dated 03/14/2024 FINDINGS: LUNGS AND PLEURAL SPACES: Lung emphysema/COPD. Stable 8 mm pulmonary nodule of the left lower lobe. Repeat CT in 3-6 months is recommended. Alternatively, this could be further evaluated with PET-CT or tissue biopsy. Right basilar atelectasis/scarring. No pneumothorax. No significant effusion. HEART: Unremarkable. No cardiomegaly. No significant pericardial effusion. No significant coronary artery calcifications. MEDIASTINUM: A few prominent mediastinal lymph nodes measuring up to 6 mm. BONES/JOINTS: Unremarkable. No acute fracture. No dislocation. SOFT TISSUES: Unremarkable. VASCULATURE: Unremarkable. No thoracic aortic aneurysm. LYMPH NODES: See above. CT/Chest without Contrast IMPRESSION: Stable 8 mm pulmonary nodule of the left lower lobe. Repeat CT in 3-6 months is recommended. Alternatively, this could be further evaluated with PET-CT or tissue biopsy. Reading Location: RAD-LE-NL CC: IRWIN Pickering; [facility] LICENSE CLERKJyotiC Marsha Mendez Pellet Post Inspector: Signed Normal [facility] Abdomen Completeon Abdomen Complete [facility] Imaging Services [address] [place] [address] Abdomen Complete MR#: [id number] Acct: [id number] Name: MARY AGUILERA Rep #: [id number] : [id number] F [id number] From: Pradip Urias MD PCP: Marsha Mendez [facility], LICENSE CLERK-C Status: REG CLI Study: Abdomen Complete Date of Exam: 06/16/24 Exam# [id number] Ordering Dr: Marsha Mendez LICENSE CLERK-Manohar PROCEDURE: ABDOMEN COMPLETE 06/16/2024 REASON FOR EXAM: GENERALIZED ABDOMINAL PAIN TECHNIQUE: Complete abdominal ultrasound tatum-scale images with color doppler. COMPARISON: None available FINDINGS: Liver: Measures 15.4 cm and appears within limits for echogenicity. No evidence of mass or intrahepatic ductal dilation seen. Hepatic color flow is present with flow within the portal vein appearing hepatopetal as expected. Gallbladder: Gallbladder is nondistended without mobile stones, wall thickening or pericholecystic free fluid seen. 3 mm non-dependent nonmobile appearing echogenic focus may represent gallbladder polyp versus adherent tumefactive sludge. Report of a negative sonographic Sams's sign. Wall measures 1-2 mm. Common bile duct: 4-5 mm . Pancreas: Visualized portions appear within limits without ductal dilation identified Kidneys: The right kidney measures 9.2 x 3.8 x 4.1 cm with a cortical thickness of 1 cm. The left kidney measures 8.9 x 4.3 x 4.4 cm with a cortical thickness of 1 cm. No hydronephrosis, renal stone or perinephric edema identified. Spleen: Measures 7.9 x 3.7 x 3.3 cm appears within limits. Aorta: Proximal 2 cm, mid 1.7 cm, distal 1.4 cm, bifurcation appears within limits IVC: Appears patent No free fluid seen. US/Abdomen Complete IMPRESSION: 3 mm gallbladder polyp versus less likely adherent tumefactive sludge as above. Study otherwise appears within limits. Reading Location: [id number] CC: [facility] LICENSE CLERK-C Marsha Mendez Pellet Post Inspector: Signed Normal [facility] Absolute lymphocyte countOrd ered By: [facility] Marsha Mendez on 06-08-2024 Lymphocytes Auto (Unsp spec) [#/Vol] 2.23 10*3/uL 0.83-4.51 [facility] Absolute neutrophil countOrd ered By: [facility] Marsha Mendez on 06-08-2024 Neutrophils (Bld) [#/Vol] 4.4 10*3/uL 2.0-7.7 [facility] Anion gap in Serum or Plasma Ordered By: [facility] Marsha Liu on 06-08-2024 Anion gap [Moles/Vol] 12 mmol/L 5- [facility] Automated lymphocyte count a s percentage of total leukocytesOrdered By: [facility] Marsha Liu on 06-08-2024 Lymphocytes/100 WBC Auto (Unsp spec) 28.7 % - [facility] BUN/creatinine ratioOrdered By: [facility] Liu on 06-08-2024 Urea nitrogen/Creatinine [Mass ratio] 13.4 mg/mg 10- [facility] Basophil percentageOrdered B y: [facility] on 06-08-2024 Basophils/100 WBC (Bld) 1.2 % High 0-1 [facility] Bilirubin, totalOrdered By: [facility] Marsha Liu on 06-08-2024 Bilirubin [Mass/Vol] 0.45 mg/dL 0.00-1.30 [facility] CBC W/Diff, Automatedon 05-21 Absolute Lymph 2.23 X10 3/uL Normal 0.83-4.51 [facility] Comment on above: Performed By: #### L 100.0100, L500.4050, L501.2450 ####[facility] [address] [place], [address] Absolute Neut 4.4 X10 3/uL Normal 2.0-7.7 [facility] Comment on above: Performed By: #### L 100.0100, L500.4050, L501.2450 ####[facility] [address] [place], [address] Basophils/100 WBC (Bld) 1.2 % High 0-1 [facility] Comment on above: Performed By: #### L 100.0100, L500.4050, [id number] ####[facility] [address] [place], [address] Eosinophils/100 WBC (Bld) 3.9 % Normal 0-5 [facility] Comment on above: Performed By: #### L 100.0100, L500.4050, [id number] ####[facility] [address] [place], [address] Erythrocyte distribution width (RBC) [Ratio] 13.3 % Normal 11.6-14.6 [facility] Comment on above: Performed By: #### L 100.0100, L500.4050, [id number] ####[facility] [address] [place], [address] Hematocrit (Bld) [Volume fraction] 39.8 % Normal 37-47 [facility] Comment on above: Performed By: #### L 100.0100, L500.4050, L501.2450 ####[facility] [address] [place], [address] Hemoglobin (Bld) [Mass/Vol] 13.1 g/dL Normal 12.0-15.0 [facility] Comment on above: Performed By: #### L 100.0100, L500.4050, [id number] ####[facility] [address] [place], [address] IG% 0.300 Normal 0.0-0.9 [facility] Comment on above: Result Comment: IG% - Immature Granulocytes (promyelocytes, myelocytes and metamyelocytes) > 1% indicates that a LEFT SHIFT is Present. Performed By: #### L 100.0100, L500.4050, L501.2450 ####[facility] [address] [place], [address] Lymphocytes/100 WBC (Bld) 28.7 % Normal 19-41 [facility] Comment on above: Performed By: #### L 100.0100, L500.4050, [id number] ####[facility] [address] [place], [address] MCH (RBC) [Entitic mass] 29.6 pg Normal 27.0-32.0 [facility] Comment on above: Performed By: #### L 100.0100, [id number], [id number] ####[facility] [address] [place], [address] MCHC (RBC) [Mass/Vol] 32.9 g/dL Normal 32-36 [facility] Comment on above: Performed By: #### L 100.0100, L500.4050, [id number] ####[facility] [address] [place], [address] MCV (RBC) [Entitic vol] 90.0 fL Normal 81-99 [facility] Comment on above: Performed By: #### L 100.0100, L500.4050, [id number] ####[facility] [address] [place], [address] Monocytes/100 WBC (Bld) 9.7 % Normal 0-10 [facility] Comment on above: Performed By: #### L 100.0100, L500.4050, [id number] ####[facility] [address] [place], [address] Neutrophils/100 WBC (Bld) 56.2 % Normal 47-70 [facility] Comment on above: Performed By: #### L 100.0100, L500.4050, [id number] ####[facility] [address] [place], [address] Nucleated RBC (Bld) [#/Vol] 0 10*3/uL Normal 0-5 [facility] Comment on above: Performed By: #### L 100.0100, L500.4050, L501.2450 ####[facility] [address] [place], [address] Platelet mean volume (Bld) [Entitic vol] 10.6 fL Normal 6.2-12.0 [facility] Comment on above: Performed By: #### L 100.0100, L500.4050, [id number] ####[facility] [address] [place], [address] Platelets (Bld) [#/Vol] 338 10*3/uL Normal 150-450 [facility] Comment on above: Performed By: #### L 100.0100, L500.4050, L501.2450 ####[facility] [address] [place], [address] RBC (Bld) [#/Vol] 4.42 10*6/uL Normal 4.2-5.4 [facility] Comment on above: Performed By: #### L 100.0100, L500.4050, [id number] ####[facility] [address] [place], [address] RDW SD 44.0 fl High 35.1-43.9 [facility] Comment on above: Performed By: #### L 100.0100, L500.4050, [id number] ####[facility] [address] [place], [address] WBC (Bld) [#/Vol] 7.8 10*3/uL Normal 4.4-11.0 [facility] Comment on above: Performed By: #### L 100.0100, L500.4050, L501.2450 ####[facility] [address] [place], [address] Carbon dioxide, total [Moles /volume] in Central venous bloodOrdered By: [facility] Marsha Mendez on 06-08-2024 CO2 [Moles/Vol] 22.0 mmol/L 21.0-32.0 [facility] Chloride assayOrdered By: VS Manohar Mendez on 06-08-2024 Chloride [Moles/Vol] 105 mmol/L 98-108 [facility] Comprehensive Metabolic Prof ilon 06-08-2024 Albumin [Mass/Vol] 4.6 g/dL Normal 3.4-4.8 [facility] Comment on above: Performed By: #### L 100.0100, L500.4050, [id number] ####[facility] [address] [place], [address] Albumin/Globulin [Mass ratio] 1.6 {ratio} Normal 0.9-2.4 [facility] Comment on above: Performed By: #### L 100.0100, L500.4050, [id number] ####[facility] [address] [place], [address] ALK PHOS 83 U/L Normal 35-104 [facility] Comment on above: Performed By: #### L 100.0100, L500.4050, [id number] ####[facility] [address] [place], [address] ALT [Catalytic activity/Vol] 19 U/L Normal <=34 [facility] Comment on above: Performed By: #### L 100.0100, L500.4050, [id number] ####[facility] [address] [place], [address] AST [Catalytic activity/Vol] 22 U/L Normal <=31 [facility] Comment on above: Performed By: #### L 100.0100, L500.4050, [id number] ####[facility] [address] [place], [address] Bilirubin [Mass/Vol] 0.45 mg/dL Normal 0.00-1.30 [facility] Comment on above: Performed By: #### L 100.0100, L500.4050, [id number] ####[facility] [address] [place], [address] BUN/CRE 13.4 RATIO Normal 10-20 [facility] Comment on above: Performed By: #### L 100.0100, L500.4050, [id number] ####[facility] [address] [place], [address] Calcium [Mass/Vol] 9.5 mg/dL Normal 7.6-11.0 [facility] Comment on above: Performed By: #### L 100.0100, L500.4050, [id number] ####[facility] [address] [place], [address] Chloride [Moles/Vol] 105 mmol/L Normal 98-108 [facility] Comment on above: Performed By: #### L 100.0100, L500.4050, [id number] ####[facility] [address] [place], [address] CO2 [Moles/Vol] 22.0 mmol/L Normal 21.0-32.0 [facility] Comment on above: Performed By: #### L 100.0100, L500.4050, [id number] ####[facility] [address] [place], [address] Creatinine [Mass/Vol] 1.06 mg/dL Normal 0.70-1.20 [facility] Comment on above: Performed By: #### L 100.0100, L500.4050, L501.2450 ####[facility] [address] [place], [address] GAP 12 Normal 5-15 [facility] Comment on above: Performed By: #### L 100.0100, L500.4050, L501.2450 ####[facility] [address] [place], [address] GFR/1.73 sq M.predicted among non-blacks MDRD (S/P/Bld) [Vol rate/Area] 58 mL/min/{1.73_m2} Low >60 [facility] Comment on above: Result Comment: mL/m in/1.73m2 CKD-EPI Creatinine Equation (2020) Performed By: #### L 100.0100, L500.4050, L501.2450 ####[facility] [address] [place], [address] Globulin (S) [Mass/Vol] 2.9 g/dL Normal 2.2-4.2 [facility] Comment on above: Performed By: #### L 100.0100, L500.4050, L501.2450 ####[facility] [address] [place], [address] Glucose [Mass/Vol] 101 mg/dL High 70-99 [facility] Comment on above: Performed By: #### L 100.0100, L500.4050, L501.2450 ####[facility] [address] [place], [address] Potassium [Moles/Vol] 4.0 mmol/L Normal 3.3-5.1 [facility] Comment on above: Performed By: #### L 100.0100, L500.4050, L501.2450 ####[facility] [address] [place], [address] Sodium [Moles/Vol] 138 mmol/L Normal 133-145 [facility] Comment on above: Performed By: #### L 100.0100, L500.4050, L501.2450 ####[facility] [address] [place], [address] T PROT 7.5 g/dL Normal 5.9-8.4 [facility] Comment on above: Performed By: #### L 100.0100, L500.4050, L501.2450 ####[facility] [address] [place], [address] Urea nitrogen [Mass/Vol] 14 mg/dL Normal 4-19 [facility] Comment on above: Performed By: #### L 100.0100, L500.4050, L501.2450 ####[facility] [address] [place], [address] Eosinophil percentageOrdered By: [facility] Marsha Mendez on 06-08-2024 Eosinophils/100 WBC (Bld) 3.9 % 0-5 [facility] Erythrocyte distribution wid th ratioOrdered By: [facility] Marsha Mendez on 06-08-2024 Erythrocyte distribution width (RBC) [Ratio] 13.3 % 11.6-14.6 [facility] Erythrocyte distribution wid th standard deviationOrdered By: [facility] Liu on 06-08-2024 Erythrocyte distribution width (RBC) [Entitic vol] 44.0 fL High 35.1-43.9 [facility] Erythrocyte distribution width (RBC) [Ratio] 44.0 fl High 35.1-43.9 [facility] GFR/1.73 sq M.predicted amber g non-blacks MDRD (S/P/Bld) [Vol rate/Area]Ordered By: [facility] Marsha Mendez on 06-08-2024 Estimated GFR (MDRD) Non-Af Amer 58 Low >60 [facility] Comment on above: mL/min/1.73m2 CKD-EP I Creatinine Equation (2020) Glomerular filtration rate ( GFR) estimation/1.73 sq m using serum, plasma, or whole bOrdered By: [facility] Marsha Mendez on 06-08-2024 GFR/1.73 sq M.predicted among non-blacks MDRD (S/P/Bld) [Vol rate/Area] 58 mL/min/{1.73_m2} Low >60 [facility] Comment on above: mL/min/1.73m2 CKD-EP I Creatinine Equation (2020) Hematocrit Auto (Bld) [Volum e fraction]Ordered By: [facility] Marsha Mendez on 06-08-2024 Hematocrit (Bld) [Volume fraction] 39.8 % 37-47 [facility] Hemoglobin measurementOrdere d By: [facility] Marsha Mendez on 06-08-2024 Hemoglobin (Bld) [Mass/Vol] 13.1 g/dL 12.0-15.0 [facility] Immature granulocytes/100 WB C Auto (Bld)Ordered By: [facility] Liu on 06-08-2024 Immature granulocytes/100 WBC (Bld) 0.300 % 0.0-0.9 [facility] Comment on above: IG% - Immature Granu locytes (promyelocytes, myelocytes and metamyelocytes) > 1% indicates that a LEFT SHIFT is Present. Laboratory - Chemistry and C hemistry - challengeOrdered By: [facility] Liu on 06-08-2024 AST [Catalytic activity/Vol] 22 U/L <32 [facility] Lipaseon 06-08-2024 Lipase [Catalytic activity/Vol] 43 U/L Normal 13-75 [facility] Comment on above: Result Comment: Maxime campo note: LIPASE revised reference range effective 22. New Lipase methodology. Expected to produce lower values than the previous assay method. NEW Reference Range: 13 - 75 U/L Performed By: #### L 100.0100, L500.4050, L501.2450 ####[facility] [address] [place], [address] Lipase measurementOrdered By : [facility] Liu on 06-08-2024 Lipase [Catalytic activity/Vol] 43 U/L 13-75 [facility] Comment on above: Please note:LIPASE r evised reference range effective 22. New Lipase methodology. Expected to produce lower values than the previous assay method. NEW Reference Range: 13 - 75 U/L Lymphocytes Auto (Unsp spec) [#/Vol]Ordered By: [facility] Marshachristianne Mendez on 06-08-2024 Lymphocytes (Bld) [#/Vol] 2.23 10*3/uL 0.83-4.51 [facility] Lymphocytes/100 WBC Auto (Un sp spec)Ordered By: [facility] Marsha Mendez on 06-08-2024 Lymphocytes/100 WBC (Bld) 28.7 % 19-41 [facility] MCV (mean corpuscular volume ) determinationOrdered By: [facility] Marsha Mendez on 06-08-2024 MCV (RBC) [Entitic vol] 90.0 fL 81-99 [facility] Mean corpuscular hemoglobin (MCH) determinationOrdered By: [facility] Marsha Mendez on 06-08-2024 MCH (RBC) [Entitic mass] 29.6 pg 27.0-32.0 [facility] Mean corpuscular hemoglobin concentration (MCHC) determinationOrdered By: [facility] Marsha Mendez on 06-08-2024 MCHC (RBC) [Mass/Vol] 32.9 g/dL 32-36 [facility] Mean platelet volume determi nationOrdered By: [facility] Marsha Mendez on 06-08-2024 Platelet mean volume (Bld) [Entitic vol] 10.6 fL 6.2-12.0 [facility] Monocyte percentageOrdered B y: [facility] Marsha Mendez on 06-08-2024 Monocytes/100 WBC (Bld) 9.7 % 0-10 [facility] Neutrophil percentageOrdered By: [facility] Marsha Mendez on 06-08-2024 Neutrophils/100 WBC (Bld) 56.2 % 47-70 [facility] Nucleated red blood cell per centageOrdered By: [facility] Marsha Mendez on 06-08-2024 Nucleated RBC/100 WBC (Bld) [Ratio] 0 % 0-5 [facility] Platelet countOrdered By: [facility] Marsha Mendez on 06-08-2024 Platelets (Bld) [#/Vol] 338 10*3/uL 150-450 [facility] Potassium (Unsp spec) [Mass/ Vol]Ordered By: [facility] Marsha Mendez on 06-08-2024 Potassium [Moles/Vol] 4.0 mmol/L 3.3-5.1 [facility] Potassium measurement (mass/ volume)Ordered By: [facility] Marsha Mendez on 06-08-2024 Potassium (Unsp spec) [Mass/Vol] 4.0 mmol/L 3.3-5.1 [facility] RBC Auto (Bld) [#/Vol]Ordere d By: [facility] Marshachristianne Mendez on 06-08-2024 RBC (Bld) [#/Vol] 4.42 10*6/uL 4.2-5.4 [facility] Serum creatinine measurement (mass/volume)Ordered By: [facility] Marsha Mendez on 06-08-2024 Creatinine [Mass/Vol] 1.06 mg/dL 0.70-1.20 [facility] Serum globulin measurementOr dered By: [facility] Marsha Mendez on 06-08-2024 Globulin (S) [Mass/Vol] 2.9 g/dL 2.2-4.2 [facility] Serum glucose measurement (m ass/volume)Ordered By: [facility] Marsha Mendez on 06-08-2024 Glucose [Mass/Vol] 101 mg/dL High 70-99 [facility] Serum or plasma alanine dow otransferase (ALT) measurementOrdered By: [facility] Marsha Mendez on 06-08-2024 ALT [Catalytic activity/Vol] 19 U/L <35 [facility] Serum or plasma albumin abdi urement (mass/volume)Ordered By: [facility] Marsha Mendez on 06-08-2024 Albumin [Mass/Vol] 4.6 g/dL 3.4-4.8 [facility] Serum or plasma albumin/glob ulin mass ratioOrdered By: [facility] Marsha Mendez on 06-08-2024 Albumin/Globulin [Mass ratio] 1.6 {ratio} 0.9-2.4 [facility] Serum or plasma alkaline donovan sphatase measurementOrdered By: [facility] Marsha Mendez on 06-08-2024 ALP [Catalytic activity/Vol] 83 U/L 35-104 [facility] Serum or plasma calcium abdi urement (mass/volume)Ordered By: [facility] Marsha Mendez on 06-08-2024 Calcium [Mass/Vol] 9.5 mg/dL 7.6-11.0 [facility] Serum or plasma urea nitroge n measurement (mass/volume)Ordered By: [facility] Marsha Mendez on 06-08-2024 Urea nitrogen [Mass/Vol] 14 mg/dL 4-19 [facility] Sodium levelOrdered By: [facility] Marsha Mendez on 06-08-2024 Sodium [Moles/Vol] 138 mmol/L 133-145 [facility] Total proteinOrdered By: [facility] Marsha Mendez on 06-08-2024 Protein [Mass/Vol] 7.5 g/dL 5.9-8.4 [facility] White blood cell (WBC) count Ordered By: [facility] Marsha Mendez on 06-08-2024 WBC (Bld) [#/Vol] 7.8 10*3/uL 4.4-11.0 [facility] Pulmonary Visit Reporton Pulmonary Visit Report [facility] [address] [facility] [place] [address] OFFICE VISIT Date of Service: 03/21/24 MR#: [id number] Acct: [id number] Name: MARY AGUILERA Rep #: [id number] : 1960 Provider: IRWIN Pickering Age/Sex: 63/F Location[place] [facility] Status: Signed Assessment and Plan Assessment and Plan (1) MARYANN (obstructive sleep apnea): Status: Chronic Plan: She is using and benefiting from PAP therapy. No indication for titration study. Follow-up 4 months. Contact the office with any new or worsening symptoms in the meantime. (2) Smoking greater than 20 pack years: Status: Chronic Comment: 40 years, quit completely June 08, 2023 Plan: Encourage complete smoking cessation. (3) Lung nodule: Status: Acute Comment: 8 mm left lower lobe pleural-based Plan: New. Will repeat diagnostic CT of the chest in 3 months. Return to the office in 4 months to discuss test results. Orders: Orders Chest without Contrast 3 Months R91.1 - Solitary pulmonary nodule Influenza Immunization Today J44.9 - Chronic obstructive pulmonary disease, unspecified, Z23 - Encounter for immunization Plan Details Follow Up: 4 Months ([facility]) HPI 8 m fu Chief Complaint: Test results HPI Comments Details: This patient presents to the office today for follow-up of her obstructive sleep apnea and to discuss test results. She is ambulatory and currently on room air. She has not recently been seen in the ED or urgent care for any respiratory illness. She has not required any antibiotics or prednisone for any breathing problems. She admits that she has resumed smoking. She is currently smoking 1/2 pack/day. She is trying to cut down slowly. She is not currently on any maintenance inhalers. She does use albuterol rescue inhaler a couple times per year. She occasionally has shortness of breath on exertion. She denies any cough, sputum production or hemoptysis. She denies any wheezing, chest tightness, chest pain or palpitations. She also denies any fever, chills or body aches. The patient reports feeling more rested and refreshed with use of her Pap device. She is no longer experiencing nightmares. She is no longer ripping the mask off through the night. She denies difficulty with dry mouth. She is not having excessive nocturia. She is not having morning headaches. She is not requiring naps. Compliance report for the past 30 days shows 83 % compliance with an average use of nearly 6 hours and 46 minutes per night. Current setting is BiPAP 11/7 cm of water with a backup rate of 12 breaths/min. Residual AHI of 6.5 events per hour. Leaks do not appear to be problematic. Test results personally reviewed the patient: Low-dose CT lung screen completed on March 14, 2024. Left lower lobe pleural-based pulmonary nodule measuring 8 mm is new compared to prior examination at location there may have been minimal scarring. No additional pulmonary nodules are clearly identified. Intake Vital Signs 07/20/23 09:30 03/21/24 07:50 Height 5 ft 3 in 5 ft 3 in Weight: 145 lb BMI 25.7 BP 105/68 Blood Pressure Location Lt brachial Position Sitting Respiration 20 H Pulse 67 Pulse Source Monitor Temp 98.1 F Temperature Source Temporal Artery Pulse Oximetry (%) 96 Oxygen Delivery Method room air Intake Visit Reasons: 8 m fu Cutter Grinder Required: No DME Vendor: [employer]- [employer] Accompanied by: Self Is patient in pain?: No Allergies penicillin G Allergy (Mild, Verified 03/21/24 13:44) Swelling Medications ???Medication ???Instructions ???Recorded ???Confirmed ???Type rosuvastatin 20 mg tablet 20 mg PO DAILY 01/09/22 03/21/24 History famotidine 20 mg tablet (Pepcid) 20 mg PO DAILY 04/09/22 03/21/24 History albuterol sulfate 90 mcg/actuation 2 puff inhalation Q6H PRN 04/15/23 03/21/24 History aerosol inhaler cholecalciferol (vitamin D3) 50 50 mcg PO DAILY 07/20/23 03/21/24 History mcg (2,000 unit) capsule escitalopram oxalate 20 mg tablet 20 mg PO QDAY 11/09/23 03/21/24 History bupropion HCl 150 mg tablet,12 hr 150 mg PO QDAY 12/01/23 03/21/24 History sustained-release (Wellbutrin SR) escitalopram oxalate 10 mg tablet 10 mg PO DAILY 12/01/23 03/21/24 History (Lexapro) Have you fallen in the past year?: No PFSH Medical History Heart murmur Dyspnea on exertion Wears contact lenses Post-menopausal High cholesterol Back pain Syncope Gastric reflux Smoker BiPAP (biphasic positive airway pressure) dependence Asthma History of echocardiogram History of stress test Cardiology follow-up encounter Hyperlipidemia Skin cancer Anxiety and depression Surgical History ... Normal [facility] Low Dose CT Lung Screeningon 03-14-[address] Lung Screening [facility] Imaging Services [address] [place] [id number] Lung Screening MR#: [id number] Acct: [id number] Name: MARY AGUILERA Rep #: [id number] : 1960 F 63 From: Nicolas padgett DO PCP: Marsha Mendez Manohar, LICENSE CLERK-C Status: REG CLI Study: Low Dose CT Lung Screening Date of Exam: 03/14 Exam# [id number] Ordering Dr: Melissa Pickering NP LICENSE CLERK-C ADDENDUM by Dr. Nicolas Martinez DO on 03/14/24 at 2307 :[id number] EXAM: CT CHEST, LUNG CANCER SCREENING WITHOUT INTRAVENOUS CONTRAST CLINICAL INDICATION: smoking history approximately 40+ pack year history. TECHNIQUE: Helically acquired images were obtained of the chest without intravenous contrast using low dose (LDCT) lung cancer screening protocol. This CT exam was performed using one or more of the following dose reduction techniques: automated exposure control, adjustment of the mA and/or kV according to patient size, and/or use of iterative reconstruction technique. COMPARISON: 03/12/2023, 02/27/2022, 02/10/2021. FINDINGS: LUNGS AND PLEURAL SPACES: Left lower lobe pleural-based pulmonary nodule measuring 8 mm is new compared to the prior examination at which location there may have been minimal scarring. No additional pulmonary nodules are clearly identified. Right greater than left basilar scarring. No pneumothorax. HEART: No significant abnormality. Heart size is normal. No pericardial effusion. No significant coronary artery calcifications. MEDIASTINUM: No significant abnormality. No mediastinal or hilar adenopathy. Esophagus is unremarkable. No hiatal hernia. THYROID: No significant abnormality. No thyroid lesions. BONES/JOINTS: No significant abnormality. No suspicious lytic or blastic abnormality. VASCULATURE: No significant abnormality. Thoracic aorta is non-dilated. LYMPH NODES: No significant abnormality. No enlarged lymph nodes. 03/14/242305 Date cc: LICENSE CLERK-C Melissa Pickering; [facility] LICENSE CLERK-C Marsha Mendez * Signed ADDENDUM by Dr. Nicolas Martinez DO on 03/14/[address]/Low Dose CT Lung Screening IMPRESSION: Left lower lobe pleural-based pulmonary nodule measuring 8 mm is new compared to the prior examination at which location there may have been minimal scarring. No additional pulmonary nodules are clearly identified. ACR Lung CT Screening Reporting And Data System (Lung-RADS) score: 4B - Very Suspicious. Recommend chest CT with or without contrast, PET/CT and/or tissue sampling depending on the probability of malignancy and comorbidities. PET/CT may be used when there is a >=8 mm solid component. For new large nodules that develop on an annual repeat screening CT, a 1 month LDCT may be recommended to address potentially infectious or inflammatory conditions. N.B. : Rosario Hunt RN, confirmed on 03/15/2024 10:32:26 (ET) that the healthcare facility has received the radiology report. Electronically Signed: Nicolas Martinez DO at 23:06 EST , 03/15/24 103 Date cc: IRWIN Pickering; [facility] LICENSE CLERKAlonso Mendez * Signed ACR Level 3 findings have been noted. An addendum which confirms receipt of the report will follow. :[id number] EXAM: CT CHEST, LUNG CANCER SCREENING WITHOUT INTRAVENOUS CONTRAST CLINICAL INDICATION: smoking history approximately 40+ pack year history. TECHNIQUE: Helically acquired images were obtained of the chest without intravenous contrast using low dose (LDCT) lung cancer screening protocol. This CT exam was performed using one or more of the following dose reduction techniques: automated exposure control, adjustment of the mA and/or kV according to patient size, and/or use of iterative reconstruction technique. COMPARISON: 03/12/2023, 02/27/2022, 02/10/2021. FINDINGS: LUNGS AND PLEURAL SPACES: Left lower lobe pleural-based pulmonary nodule measuring 8 mm is new compared to the prior examination at which location there may have been minimal scarring. No additional pulmonary nodules are clearly identified. Right greater than left basilar scarring. No pneumothorax. HEART: No significant abnormality. Heart size is normal. No pericardial effusion. No significant coronary artery calcifications. MEDIASTINUM: No significant abnormality. No mediastinal or hilar adenopathy. Esophagus is unremarkable. No hiatal hernia. THYROID: No significant abnormality. No thyroid lesions. BONES/JOINTS: No significant abnormality. No suspicious lytic or blastic abnormality. VASCULATURE: No significant abnormality. Thoracic aorta is non-dilated. LYMPH NODES: No significant abnormality. No enlarged l (more content not included)... Normal [facility] SCRN MAMM (CAD)W/BONITA BILTara n 12-22-2023 SCRN MAMM (CAD)W/BONITA BILAT [facility] Imaging Services [address], [place] [id number] SCRN MAMM (CAD)W/BONITA CLARISSAPANKAJ MR#: [id number] Acct: [id number] Name: MARY AGUILERA Rep #: [id number] : 1960 F 63 From: Pete davis MD PCP: [facility] Status: REG CLI Study: SCRN MAMM (CAD)W/BONITA BILAT Date of Exam: 04/15 Exam# [id number] Ordering Dr: Marsha Mendez [facility] LICENSE CLERK-C :[id number] MAMMOGRAPHY - BILATERAL SCREENING REASON FOR EXAM: Female, 63 years old. Routine annual screening examination. PERTINENT HISTORY: Mother with breast cancer. Aunt with breast cancer. TECHNIQUE: Digital bilateral breast bonita (3D mammographic acquisition) in the CC and MLO projections. 2-D mediolateral oblique (MLO) and craniocaudad (CC) views of both breasts were obtained. CAD: Full Field Digital Mammography with Computer Added Detection was performed. COMPARISON: Comparison is made with prior study November 03, 2022 and October 25, 2021. FINDINGS: Breast Composition: The breasts are heterogeneously dense, which may obscure small masses. There are no dominant masses or suspicious calcifications. Stable 4.5 mm well-defined nodule in the axillary region of the left breast most likely representing a small lymph node. Stable bilateral fat containing axillary lymph nodes. No other significant abnormalities are identified. There has been no significant change since the prior study. BI/SCRN MAMM (CAD)W/BONITA BILAT IMPRESSION: Stable bilateral screening mammogram. Yearly follow-up mammogram recommended. (A) ASSESSMENT CATEGORY: BIRADS Category 2: Benign. A letter regarding these results will be sent to the patient by the facility within 30 days. Approximately 10% of breast cancers are not detected by mammography. A normal mammogram should not delay biopsy of a clinically suspicious abnormality. [id number] Electronically Signed: Pete Bartholomew MD at 15:16 EDT , CC: [facility] IRWIN Mendez; [facility] Pellet Post Inspector: Signed Normal [facility] Echo Completeon 12-18-2023 Echo Complete [facility] [address] [place] [address] Echo Complete 12/18/23 1000 MR#: [id number] Acct: [id number] Name: MARY AGUILERA Rep #: [id number] : 1960 63 From: Asael Salter MD Attending Dr: Dr. Blanco Hernandez MD Status: RE G CLI Ordering Dr: Blanco Hernandez MD Date: 12/18/23 Location: [facility] Sex: F C Admitted: Reason For Study: DYSPNEA/SOB Procedure This was a 2D Doppler, Color Flow transthoracic echocardiogram. Exam performed in department. Left Ventricle Normal LV size. Left ventricular systolic function is normal. Stage 1 diastolic dysfunction. The left ventricular ejection fraction is 70 %. No regional wall motion abnormalities noted. Right Ventricle Normal RV size. Normal systolic function. Atria Normal left atrium. Normal right atrium. Mitral Valve Normal mitral valve. Tricuspid Valve Normal tricuspid valve. Mild (1+) tricuspid valve insufficiency. Pulmonary artery systolic pressure is 25 mmHg. Aortic Valve Trisinus/trileaflet aortic valve. Pulmonic Valve Normal pulmonic valve. Great Vessels Normal aortic root. The pulmonary artery is normal size. Inferior vena cava collapse with respiration. Pericardium/Pleural No pericardial effusion. MMode/2D Measurements Calculations LVIDd: 4.1 cm IVSd: 0.88 cm Ao root diam: 3.0 cm LVIDs: 2.4 cm LVPWd: 0.98 cm RVDd: 2.6 cm FS: 42.4 % LAV(MOD-bp): 24.2 ml LVAd ap4: 22.2 cm2 SV(MOD-sp4): 41.1 ml LAV(MOD-bp) Indexed: 14.2 ml/m2 LVLd ap4: 7.1 cm LAV(MOD-sp2): 21.2 ml EDV(MOD-sp4): 58.5 ml LAV(MOD-sp4): 26.4 ml EDV(sp4-el): 58.5 ml LVAs ap4: 11.3 cm2 LVLs ap4: 6.2 cm ESV(MOD-sp4): 17.4 ml ESV(sp4-el): 17.6 ml EF(MOD-sp4): 70.2 % EF(sp4-el): 70.0 % SV(sp4-el): 41.0 ml LA A4 area: 12.0 cm2 LA dimension(2D): 3.2 cm RA A4 area: 11.6 cm2 TAPSE: 2.4 cm Time Measurements MV dec time: 0.22 sec Doppler Measurements Calculations MV E max pooja: 60.0 cm/sec Lat Peak E' Pooja: 8.5 cm/sec Med Peak E' Pooja: 7.7 cm/sec MV A max pooja: 62.6 cm/sec E/E' lat: 7.1 E/E' med: 7.8 MV E/A: 0.96 Ao V2 max: 118.8 cm/sec LV V1 max: 113.1 cm/sec PA V2 max: 80.0 cm/sec Ao max P.6 mmHg LV V1 max P.1 mmHg TR max pooja: 227.9 cm/sec TR max P.8 mmHg ECHO/Echo Complete Interpretation Summary Normal LV size. Left ventricular systolic function is normal. Stage 1 diastolic dysfunction. The left ventricular ejection fraction is 70 %. Mild (1+) tricuspid valve insufficiency. Ordering Physician: Blanco Hernandez Referring Physician: CARLOTA WHEELER Performed By: Alem Maldonado RDCS 12/18/23 1501 Date Asael Salter MD CC: Dr. Blanco Hernandez MD; [facility] Date Dictated: 12/18/23 1000 Date Transcribed: 12/18/23 1501 Pellet Post Inspector: Signed Normal [facility] Stress Reporton 12-18-2023 Stress Report [facility] Cardi[facility] Services [address] [place] [address] MR#: [id number] Acct: [id number] Name: MARY AGUILERA Rep #: [id number] : 1960 63 From: Asael Salter MD Primary Care: [facility] Status: REG CLI Referring Dr: Blanco Hernandez MD Sex: F C Stress Test Report Exercise stress test. 63-year-old lady with a history of dyspnea on exertion Stress protocol: Resting EKG demonstrates normal sinus rhythm with a rate of 64 bpm resting blood pressure is 116/76 mmHg. The patient exercised according to the regular Jim protocol for a total duration of 6 minutes and 10 seconds attaining a maximum heart rate of 123 bpm which was 79% of maximum predicted heart rate; the maximum workload was 7 metabolic equivalents. At rest there were no ST or T wave changes noted to suggest ischemia and at peak exercise upsloping ST changes only were noted which did not meet the criteria for ischemia. No clinical angina was noted the test was terminated due to the target heart rate being achieved/fatigue. Nonspecific ST changes were noted during the recovery phase. The peak blood pressure was 140/66 mmHg. Rate-pressure product was 17,000. Conclusion: Exercise stress test with nonspecific ST changes noted not suggestive of ischemia. Mild functional aerobic impairment No clinical angina noted 12/18/231421 Date Asael Salter MD CC: Dr. Blanco Hernandez MD; [facility] Date Dictated: 12/18/231419 Date Transcribed: 12/18/231419 Pellet Post Inspector: CO Signed Normal [facility] 12 Lead EKG performed by [facility] on 12-01-2023 12 Lead EKG performed by [facility] [address] [place] [address] 12 Lead EKG performed by [facility] 12/01/23 1016 MR#: [id number] Acct: [id number] Name: MARY AGUILERA Alex Rep #: [id number] : 1960 63 From: Blanco Hernandez MD Attending Dr: Dr. Blanco Hernandez MD Status: DE P AMB Ordering Dr: Blanco Hernandez MD Date: 12/01/23 Location: [facility] [place] Sex: F C Admitted: BMS/12 Lead EKG performed by [facility] ECG Report Interpretation NO RMAL SINUS RhythmBaseline ArtifactOtherwise NORMALElectronically signed on 12/01/2023 at 15:[address] Blanco Hernandez [employer] Version 8610 12/01/23 1529 Date Blanco Hernandez MD CC: [facility] Date Dictated: 12/01/23 1016 Date Transcribed: 12/01/23 1016 Pellet Post Inspector: Signed Normal [facility] Cardiology Visit Reporton Cardiology Visit Report [facility] [address] [place] [address] OFFICE VISIT Date of Service: 12/01/23 MR#: [id number] Acct: [id number] Name: MARY AGUILERA Rep #: [id number] : 1960 Provider: Dr. Blanco peters MD Age/Sex: 63/F Location: [facility] [place] Status: Signed with Addenda ADDENDUM by Dr. Blanco Hernandez MD on 12/01/23 at 1422 HPI History of Present Illness Details: EKG done in the office today had significant artifact on it it was a sinus rhythm and was otherwise unremarkable although lead V1 was missing. Assessment and Plan Assessment and Plan (1) Heart murmur: Status: Acute (2) Dyspnea on exertion: Status: Acute (3) Smoking greater than 20 pack years: Status: Chronic Comment: 40 years, quit completely June 08, 2023 (4) MARYANN (obstructive sleep apnea): Status: Chronic (5) Hyperlipidemia: Status: Chronic Qualifiers: Hyperlipidemia type: pure hypercholesterolemia Qualified Code(s): E78.00 - Pure hypercholesterolemia, unspecified Orders: Orders 12 Lead EKG performed by [facility] Today R00.2 - Palpitations, R06.09 - Other forms of dyspnea, R07.9 - Chest pain, unspecified Stress Test Regular 3 Weeks R06.09 - Other forms of dyspnea Echo Complete 3 Weeks R06.09 - Other forms of dyspnea Plan Details Follow Up: 6 Months (With Dr. Hernandez as needed) 12/01/23 1422 Date Blanco Hernandez MD cc: [facility] * Signed HPI HPI History of Present Illness Details: Ms. Aguilera comes in today as a new patient visit is a 63-year-old white female. She is being evaluated for dyspnea on exertion. The patient has a history of shortness of breath and dyspnea on exertion specifically going up and down stairs. She occasionally gets these episodes when she is walking her dog that last 10 to 15 seconds and then resolve spontaneously continues on with a walk without incident. She does have a history of obstructive sleep apnea being treated with BiPAP she does smoke and has about a 04-[id number]-vjpo smoking history. The patient is not diabetic she is not hypertensive she is hyperlipidemic. Total cholesterol was 195 HDL 56 LDL 130 and triglycerides 46 in June 2023 on rosuvastatin 20 mg daily. There is no family history of early coronary disease. The patient was evaluated in the pulmonary department and was found to have a murmur. She had a stress echo done June 2018 which showed good functional capacity normal rest and stress echocardiogram with no evidence of ischemia. The resting echocardiogram showed normal LV size with left ventricular systolic function being normal with a EF of 60% there was no diastolic dysfunction and no significant valvular heart disease documented May 2018. The patient denies any yasmin syncope she denies any chest pain denies any palpitations. She does complain of some chronic fatigue although this seems to be improved with treatment of her obstructive sleep apnea with BiPAP. 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 Accompanied by: Self Is patient in pain?: No Allergies penicillin G Allergy (Mild, Verified 12/01/23 13:26) Swelling Medications ???Medication ???Instructions ???Recorded ???Confirmed ???Type rosuvastatin 20 mg tablet 20 mg PO DAILY 01/09/22 12/01/23 History famotidine 20 mg tablet (Pepcid) 20 mg PO DAILY 04/09/22 11/09/23 History albuterol sulfate 90 mcg/actuation 2 puff inhalation Q6H PRN 04/15/23 12/01/23 History aerosol inhaler cholecalciferol (vitamin D3) 50 50 mcg PO DAILY 07/20/23 12/01/23 History mcg (2,000 unit) capsule escitalopram oxalate 20 mg tablet 20 mg PO QDAY 11/09/23 11/09/23 History bupropion HCl 150 mg tablet,12 hr 150 mg PO QDAY 12/01/23 12/01/23 History sustained-release (Wellbutrin SR) escitalopram oxalate 10 mg tablet 10 mg PO DAILY 12/01/23 12/01/23 History (Lexapro) Have you fallen in the past year?: No PFSH Medical History Heart murmur Dyspnea on exertion Wears contact lenses Post-menopausal High cholesterol Back pain Syncope Gastric reflux Smoker BiPAP (biphasic positive airway pressure) dependence Asthma History of echocardiogram History of stress test Cardiology follow-up encounter Hyperlipidemia Skin cancer Anxiety and depression (more content not included)... Normal [facility] Absolute lymphocyte countOrd ered By: [facility] Marsha Mendez on 07-06-2023 Lymphocytes Auto (Unsp spec) [#/Vol] 1.85 10*3/uL 0.83-4.51 [facility] Automated lymphocyte count a s percentage of total leukocytesOrdered By: [facility] Marsha Mendez on 07-06-2023 Lymphocytes/100 WBC Auto (Unsp spec) 23.7 % 19-41 [facility] Basophil percentageOrdered B y: [facility] Marsha Mendez on 07-06-2023 Basophils/100 WBC (Bld) 0.9 % 0-1 [facility] Bilirubin [Mass/Vol] 0.50 mg/dL 0.20-1.00 [facility] Comment on above: For patients on eltr ombopag therapy, use of Dimension [place] TBIL is not recommended. Chloride [Moles/Vol] 108 mmol/L 98-107 [facility] Cholesterol [Mass/Vol] 195 mg/dL <200 [facility] Comment on above: <200 mg/dL Desirable 200-240 mg/dL Borderline >240 mg/dL High Risk Eosinophils/100 WBC (Bld) 4.9 % 0-5 [facility] Glucose [Mass/Vol] 120 mg/dL 74-106 [facility] Comment on above: Fasting Glucose resu lt from 100 to 125 mg/dL suggests IMPAIRED HOMEOSTASIS per A.D.A. criteria. Hemoglobin (Bld) [Mass/Vol] 12.8 g/dL 12.0-15.0 [facility] Monocytes/100 WBC (Bld) 9.6 % 0-10 [facility] Neutrophils (Bld) [#/Vol] 4.7 10*3/uL 2.0-7.7 [facility] Neutrophils/100 WBC (Bld) 60.8 % 47-70 [facility] Potassium [Moles/Vol] 3.8 mmol/L 3.5-5.1 [facility] Protein [Mass/Vol] 7.3 g/dL 6.4-8.2 [facility] Sodium [Moles/Vol] 140 mmol/L 136-145 [facility] Triglyceride [Mass/Vol] 46 mg/dL <199 [facility] Comment on above: The drugs N-Acetylcy steine and Metamizole may falsely depress this assay.Serum Triglycerides Reference Interval Normal <150 mg/dL Borderline high 150 - 199 mg/dL High 200 - 499 mg/dL Very High > or = 500 mg/dL WBC (Bld) [#/Vol] 7.8 10*3/uL 4.4-11.0 [facility] Determination of erythrocyte mean corpuscular volume (MCV)Ordered By: [facility] Marsha Mendez on 07-06-2023 MCV (RBC) [Entitic vol] 88.3 fL 81-99 [facility] Erythrocyte distribution wid th ratioOrdered By: [facility] Marsha Mendez on 07-06-2023 Erythrocyte distribution width (RBC) [Ratio] 13.5 % 11.6-14.6 [facility] Erythrocyte distribution wid th standard deviationOrdered By: [facility] Marsha Mendez on 07-06-2023 Erythrocyte distribution width (RBC) [Entitic vol] 43.5 fL 35.1-43.9 [facility] Hematocrit Auto (Bld) [Volum e fraction]Ordered By: [facility] Marsha Mendez on 07-06-2023 Hematocrit (Bld) [Volume fraction] 39.3 % 37-47 [facility] Immature granulocytes/100 WB C Auto (Bld)Ordered By: [facility] Liu on 07-06-2023 Immature granulocytes/100 WBC (Bld) 0.100 % 0.0-0.9 [facility] Comment on above: IG% - Immature Granu locytes (promyelocytes, myelocytes and metamyelocytes) > 1% indicates that a LEFT SHIFT is Present. Laboratory - Chemistry and C hemistry - challengeOrdered By: [facility] Marsha Mendez on 07-06-2023 Albumin/Globulin [Mass ratio] 1.1 {ratio} 0.9-2.4 [facility] ALP [Catalytic activity/Vol] 66 U/L 45-117 [facility] ALT [Catalytic activity/Vol] 20 U/L 13-56 [facility] Cholesterol in HDL [Mass/Vol] 56 mg/dL >40 [facility] Comment on above: The drugs N-Acetylcy steine and Metamizole may falsely depress this assay. Reference Range HDL <40 mg/dL Low HDL Cholesterol HDL >or= 60 mg/dL High HDL Cholesterol Cholesterol in LDL [Mass/Vol] 130 mg/dL 0-130 [facility] CO2 [Moles/Vol] 26.0 mmol/L 21.0-32.0 [facility] Globulin (S) [Mass/Vol] 3.5 g/dL 2.2-4.2 [facility] Natriuretic peptide B (Bld) [Mass/Vol] 24.5 pg/mL 0-100 [facility] Urea nitrogen/Creatinine [Mass ratio] 19.9 mg/mg 10-20 [facility] Laboratory - Hematology and Cell countsOrdered By: [facility] Marsha Mendez on 07-06-2023 MCH (RBC) [Entitic mass] 28.8 pg 27.0-32.0 [facility] MCHC (RBC) [Mass/Vol] 32.6 g/dL 32-36 [facility] Nucleated RBC/100 WBC (Bld) [Ratio] 0 % 0-5 [facility] Platelet mean volume (Bld) [Entitic vol] 10.6 fL 6.2-12.0 [facility] Platelets (Bld) [#/Vol] 366 10*3/uL 150-450 [facility] No Panel InformationOrdered By: [facility] Marsha Mendez on 07-06-2023 Estimated GFR (MDRD) Amer 75 mL/min >60 [facility] Comment on above: GFR Calc Estimated GFR (MDRD) Non-Af Amer 62 mL/min >60 [facility] Comment on above: Non- GFR Calc VLDL Cholesterol 9 mg/dL 5-40 [facility] RBC Auto (Bld) [#/Vol]Ordere d By: [facility] Marsha Mendez on 07-06-2023 RBC (Bld) [#/Vol] 4.45 10*6/uL 4.2-5.4 [facility] Serum or plasma calcitriol m easurement (mass/volume)Ordered By: [facility] Marsha Mendez on 07-06-2023 1,25-dihydroxyvitamin D3 [Mass/Vol] 80.8 pg/mL 24.8-81.5 [facility] Comment on above: Performed at: [address] [id number] Director: Mendy Hooper MD, Phone: [phone] Serum or plasma calcium abdi urement (mass/volume)Ordered By: [facility] Marsha Mendez on 07-06-2023 Calcium [Mass/Vol] 9.1 mg/dL 8.5-10.1 [facility] Serum or plasma creatinine m easurement (mass/volume)Ordered By: [facility] Marsha Mendez on 07-06-2023 Creatinine [Mass/Vol] 0.96 mg/dL 0.55-1.02 [facility] Comment on above: The validity of the calculated GFR & GFRAA in patients over 70 years has not been determined. Clinical correlation is essential. Serum or plasma thyroid stim ulating hormone (TSH) measurement (units/volume)Ordered By: [facility] Marsha Mendez on 07-06-2023 TSH Qn 0.80 uIU/mL 0.358-3.74 [facility] Serum or plasma urea nitroge n measurement (mass/volume)Ordered By: [facility] Marsha Mendez on 07-06-2023 Urea nitrogen [Mass/Vol] 19 mg/dL 7-18 [facility] Thin prep Papanicolaou smear with manual screeningOrdered By: [facility] Liu on 07-06-2023 Thin prep Papanicolaou smear with manual screening 3.8 g/dL 3.2-5.0 [facility] Thin prep Papanicolaou smear with manual screening 17 U/L 15-37 [facility] Thin prep Papanicolaou smear with manual screening 6 5-15 [facility] Absolute lymphocyte countOrd ered By: Marsha Mendez on 10-20-2022 Lymphocytes Auto (Unsp spec) [#/Vol] 2.05 10*3/uL 0.83-4.51 [facility] Basophil percentageOrdered B y: Marsha Mednez on 10-20-2022 Basophils/100 WBC (Bld) 0.8 % 0-1 [facility] Bilirubin [Mass/Vol] 0.30 mg/dL 0.20-1.00 [facility] Comment on above: For patients on eltr ombopag therapy, use of Dimension [place] TBIL is not recommended. Chloride [Moles/Vol] 110 mmol/L 98-107 [facility] Cholesterol [Mass/Vol] 243 mg/dL <200 [facility] Comment on above: <200 mg/dL Desirable 200-240 mg/dL Borderline >240 mg/dL High Risk Eosinophils/100 WBC (Bld) 2.8 % 0-5 [facility] Glucose [Mass/Vol] 94 mg/dL 74-106 [facility] Neutrophils (Bld) [#/Vol] 6.3 10*3/uL 2.0-7.7 [facility] Neutrophils/100 WBC (Bld) 64.4 % 47-70 [facility] Potassium [Moles/Vol] 4.1 mmol/L 3.5-5.1 [facility] Protein [Mass/Vol] 7.2 g/dL 6.4-8.2 [facility] Sodium [Moles/Vol] 140 mmol/L 136-145 [facility] Triglyceride [Mass/Vol] 205 mg/dL <199 [facility] Comment on above: The drugs N-Acetylcy steine and Metamizole may falsely depress this assay.Serum Triglycerides Reference Interval Normal <150 mg/dL Borderline high 150 - 199 mg/dL High 200 - 499 mg/dL Very High > or = 500 mg/dL WBC (Bld) [#/Vol] 9.7 10*3/uL 4.4-11.0 [facility] Blood erythrocytes count (nu mber/volume)Ordered By: Marsha Mendez on 10-20-2022 RBC (Bld) [#/Vol] 4.35 10*6/uL 4.2-5.4 [facility] Blood hemoglobin measurement (mass/volume)Ordered By: Marsha Mendez on 10-20-2022 Hemoglobin (Bld) [Mass/Vol] 12.5 g/dL 12.0-15.0 [facility] Blood lymphocytes/100 leukoc ytesOrdered By: Marsha Mendez on 10-20-2022 Lymphocytes/100 WBC (Bld) 21.1 % 19-41 [facility] Blood monocytes/100 leukocyt esOrdered By: Marsha Mendez on 10-20-2022 Monocytes/100 WBC (Bld) 10.6 % 0-10 [facility] Blood platelet mean volumeOr dered By: Marsha Mendez on 10-20-2022 Platelet mean volume (Bld) [Entitic vol] 10.7 fL 6.2-12.0 [facility] Determination of erythrocyte mean corpuscular volume (MCV)Ordered By: Marsha Mendez on 10-20-2022 MCV (RBC) [Entitic vol] 91.5 fL 81-99 [facility] Hematocrit Auto (Bld) [Volum e fraction]Ordered By: Marsha Mendez on 10-20-2022 Hematocrit (Bld) [Volume fraction] 39.8 % 37-47 [facility] Laboratory - Chemistry and C hemistry - challengeOrdered By: Marsha Mendez on 10-20-2022 ALP [Catalytic activity/Vol] 73 U/L 45-117 [facility] ALT [Catalytic activity/Vol] 17 U/L 13-56 [facility] CO2 [Moles/Vol] 27.0 mmol/L 21.0-32.0 [facility] Globulin (S) [Mass/Vol] 3.5 g/dL 2.2-4.2 [facility] Urea nitrogen/Creatinine [Mass ratio] 15.0 mg/mg 10-20 [facility] Laboratory - Hematology and Cell countsOrdered By: Marsha Mendez on 10-20-2022 Erythrocyte distribution width (RBC) [Entitic vol] 46.5 fL 35.1-43.9 [facility] Erythrocyte distribution width (RBC) [Ratio] 13.8 % 11.6-14.6 [facility] Immature granulocytes/100 WBC (Bld) 0.300 % 0.0-0.9 [facility] Comment on above: IG% - Immature Granu locytes (promyelocytes, myelocytes and metamyelocytes) > 1% indicates that a LEFT SHIFT is Present. MCH (RBC) [Entitic mass] 28.7 pg 27.0-32.0 [facility] Nucleated RBC/100 WBC (Bld) [Ratio] 0 % 0-5 [facility] MCHC Auto (RBC) [Mass/Vol]Or dered By: Marsha Mendez on 10-20-2022 MCHC (RBC) [Mass/Vol] 31.4 g/dL 32-36 [facility] No Panel InformationOrdered By: Marsha Mendez on 10-20-2022 Estimated GFR (MDRD) Amer 78 mL/min >60 [facility] Comment on above: GFR Calc Estimated GFR (MDRD) Non-Af Amer 64 mL/min >60 [facility] Comment on above: Non- GFR Calc Follicle Stimulating Hormone 119.3 mIU/mL [facility] Comment on above: NORMAL REFERENCE RAN GES FEMALE FOLLICULAR 2.3 - 12.6 mIU/mL MID-CYCLE PEAK 5.2 - 17.5 mIU/mL LUTEAL 1.7 - 12.9 mIU/mL POST-MENOPAUSAL ON MHT 5.9 - 72.8 mIU/mL NOT ON MHT 12.7 - 132.2 mlU/mL MALE 0.7 - 10.8 mIU/mL Luteinizing Hormone 35.0 mIU/mL [facility] Comment on above: NORMAL REFERENCE RAN GES FEMALE FOLLICULAR 1.9 - 26.2 mIU/mL MID-CYCLE PEAK 22.8 - 76.1 mIU/mL LUTEAL 0.6 - 16.6 mIU/mL POST-MENOPAUSAL ON MHT 1.1 - 52.4 mIU/mL NOT ON MHT 8.6 - 61.8 mIU/mL MALE 1.2 - 10.6 mIU/mL Thyroid Stimulating Hormone (TSH) 1.29 uIU/mL 0.358-3.74 [facility] Vitamin D 25-Hydroxy 25.3 ng/mL [facility] Comment on above: Vitamin D 25(OH) Sta tus Range Deficiency <20 ng/mL (50nmol/L) Insufficiency 20 - 30 ng/mL (50 - 75 nmol/L) Sufficiency 30 - 100 ng/mL (75 - 250 nmol/L) Toxicity >100 ng/mL (>250 nmol/L) Platelets bldOrdered By: Jessica Mendez on 10-20-2022 Platelets (Bld) [#/Vol] 394 10*3/uL 150-450 [facility] Serum or plasma albumin abdi urement (mass/volume)Ordered By: Marsha Mendez on 10-20-2022 Albumin [Mass/Vol] 3.7 g/dL 3.2-5.0 [facility] Serum or plasma albumin/glob ulin mass ratioOrdered By: Marsha Mendez on 10-20-2022 Albumin/Globulin [Mass ratio] 1.1 {ratio} 0.9-2.4 [facility] Serum or plasma calcium abdi urement (mass/volume)Ordered By: Marsha Mendez on 10-20-2022 Calcium [Mass/Vol] 8.7 mg/dL 8.5-10.1 [facility] Serum or plasma cholesterol in HDL measurement (mass/volume)Ordered By: Marsha Mendez on 10-20-2022 Cholesterol in HDL [Mass/Vol] 35 mg/dL >40 [facility] Comment on above: The drugs N-Acetylcy steine and Metamizole may falsely depress this assay. Reference Range HDL <40 mg/dL Low HDL Cholesterol HDL >or= 60 mg/dL High HDL Cholesterol Serum or plasma cholesterol in VLDL measurement (mass/volume)Ordered By: Marsha Mendez on 10-20-2022 Cholesterol in VLDL [Mass/Vol] 41 mg/dL 5-40 [facility] Serum or plasma creatinine m easurement (mass/volume)Ordered By: Marsha Mendez on 10-20-2022 Creatinine [Mass/Vol] 0.93 mg/dL 0.55-1.02 [facility] Comment on above: The validity of the calculated GFR & GFRAA in patients over 70 years has not been determined. Clinical correlation is essential. Serum or plasma estradiol (E 2) measurement (mass/volume)Ordered By: Marsha Mendez on 10-20-2022 E2 [Mass/Vol] pg/mL [facility] Comment on above: NORMAL REFERENCE RAN GES FEMALE FOLLICULAR 21.4 - 164.8 pg/mL MID-CYCLE PEAK 49.9 - 367.2 pg/mL LUTEAL 40.2 - 259.0 pg/mL POST-MENOPAUSAL ON MHT <11.0 - 462.1 pg/mL NOT ON MHT <11.0 - 58.3 pg/mL MALE <11.0 - 52.5 pg/mL NOTE:[employer] HAS CONFIRMED THE DRUG FULVETRANT (FASLODEX) MAY CAUSE FALSELY ELEVATED ESTRADIOL RESULTS WHEN USING THIS TEST METHOD. IF PATIENT IS TAKING FULVESTRANT AN ALTERNATIVE METHOD SHOULD BE USED TO DETERMINE ESTRADIOL CONCENTRATION. Serum or plasma low density lipoprotein (LDL) cholesterol measurement (mass/volume)Ordered By: Marsha Mendez on 10-20-2022 Cholesterol in LDL [Mass/Vol] 167 mg/dL 0-130 [facility] Serum or plasma urea nitroge n measurement (mass/volume)Ordered By: Marsha Mendez on 10-20-2022 Urea nitrogen [Mass/Vol] 14 mg/dL 7-18 [facility] Thin prep Papanicolaou smear with manual screeningOrdered By: Marsha Mendez on 10-20-2022 Thin prep Papanicolaou smear with manual screening 14 U/L 15-37 [facility] Thin prep Papanicolaou smear with manual screening 3 5-15 [facility] Basophil percentageon 12-20- 2022 Bilirubin [Mass/Vol] 0.40 mg/dL 0.20-1.00 [facility] Work Phone: Comment on above: For patients on eltr ombopag therapy, use of Dimension [place] TBIL is not recommended. Chloride [Moles/Vol] 109 mmol/L 98-107 [facility] Work Phone: Cholesterol [Mass/Vol] 227 mg/dL <200 [facility] Work Phone: Comment on above: <200 mg/dL Desirable 200-240 mg/dL Borderline >240 mg/dL High Risk Glucose [Mass/Vol] 120 mg/dL 74-106 [facility] Work Phone: Comment on above: Fasting Glucose resu lt from 100 to 125 mg/dL suggests IMPAIRED HOMEOSTASIS per A.D.A. criteria. Potassium [Moles/Vol] 4.3 mmol/L 3.5-5.1 [facility] Work Phone: Protein [Mass/Vol] 7.5 g/dL 6.4-8.2 [facility] Work Phone: Sodium [Moles/Vol] 140 mmol/L 136-145 [facility] Work Phone: Triglyceride [Mass/Vol] 75 mg/dL <199 [facility] Work Phone: Comment on above: The drugs N-Acetylcy steine and Metamizole may falsely depress this assay.Serum Triglycerides Reference Interval Normal <150 mg/dL Borderline high 150 - 199 mg/dL High 200 - 499 mg/dL Very High > or = 500 mg/dL Laboratory - Chemistry and C hemistry - challengeon 03-11-2022 ALP [Catalytic activity/Vol] 64 U/L 45-117 [facility] Work Phone: ALT [Catalytic activity/Vol] 26 U/L 13-56 [facility] Work Phone: CO2 [Moles/Vol] 28.0 mmol/L 21.0-32.0 [facility] Work Phone: Globulin (S) [Mass/Vol] 3.5 g/dL 2.2-4.2 [facility] Work Phone: Urea nitrogen/Creatinine [Mass ratio] 15.3 mg/mg 01-09 [facility] Work Phone: No Panel Informationon 03-11 Estimated GFR (MDRD) Amer 73 mL/min >60 [facility] Work Phone: Comment on above: GFR Calc Estimated GFR (MDRD) Non-Af Amer 61 mL/min >60 [facility] Work Phone: Comment on above: Non- GFR Calc Serum or plasma albumin abdi urement (mass/volume)on 03-11-2022 Albumin [Mass/Vol] 4.0 g/dL 3.2-5.0 [facility] Work Phone: Serum or plasma albumin/glob ulin mass ratioon 03-11-2022 Albumin/Globulin [Mass ratio] 1.1 {ratio} 0.9-2.4 [facility] Work Phone: Serum or plasma calcium abdi urement (mass/volume)on 03-11-2022 Calcium [Mass/Vol] 9.1 mg/dL 8.5-10.1 [facility] Work Phone: Serum or plasma cholesterol in HDL measurement (mass/volume)on 03-11-2022 Cholesterol in HDL [Mass/Vol] 56 mg/dL >40 [facility] Work Phone: Comment on above: The drugs N-Acetylcy steine and Metamizole may falsely depress this assay. Reference Range HDL <40 mg/dL Low HDL Cholesterol HDL >or= 60 mg/dL High HDL Cholesterol Serum or plasma cholesterol in VLDL measurement (mass/volume)on 03-11-2022 Cholesterol in VLDL [Mass/Vol] 15 mg/dL 5-40 [facility] Work Phone: Serum or plasma creatinine m easurement (mass/volume)on 03-11-2022 Creatinine [Mass/Vol] 0.98 mg/dL 0.55-1.02 [facility] Work Phone: Comment on above: The validity of the calculated GFR & GFRAA in patients over 70 years has not been determined. Clinical correlation is essential. Serum or plasma low density lipoprotein (LDL) cholesterol measurement (mass/volume)on 03-11-2022 Cholesterol in LDL [Mass/Vol] 156 mg/dL 0-130 [facility] Work Phone: Serum or plasma urea nitroge n measurement (mass/volume)on 03-11-2022 Urea nitrogen [Mass/Vol] 15 mg/dL 7-18 [facility] Work Phone: Thin prep Papanicolaou smear with manual screeningon 03-11-2022 Thin prep Papanicolaou smear with manual screening 16 U/L 15-37 [facility] Work Phone: Thin prep Papanicolaou smear with manual screening 3 5-15 [facility] Work Phone: Absolute lymphocyte counton 11-22-2021 Lymphocytes Auto (Unsp spec) [#/Vol] 2.45 10*3/uL 0.83-4.51 [facility] Work Phone: Basophil percentageon 2021 Basophils/100 WBC (Bld) 1.0 % 0-1 [facility] Work Phone: Bilirubin [Mass/Vol] 0.20 mg/dL 0.20-1.00 [facility] Work Phone: Comment on above: For patients on eltr ombopag therapy, use of Dimension [place] TBIL is not recommended. Chloride [Moles/Vol] 108 mmol/L 98-107 [facility] Work Phone: Cholesterol [Mass/Vol] 276 mg/dL <200 [facility] Work Phone: Comment on above: <200 mg/dL Desirable 200-240 mg/dL Borderline >240 mg/dL High Risk Eosinophils/100 WBC (Bld) 5.3 % 0-5 [facility] Work Phone: Glucose [Mass/Vol] 109 mg/dL 74-106 [facility] Work Phone: Comment on above: Fasting Glucose resu lt from 100 to 125 mg/dL suggests IMPAIRED HOMEOSTASIS per A.D.A. criteria. Neutrophils (Bld) [#/Vol] 4.4 10*3/uL 2.0-7.7 [facility] Work Phone: [phone] Neutrophils/100 WBC (Bld) 52.7 % 47-70 [facility] Work Phone: [phone] Potassium [Moles/Vol] 3.9 mmol/L 3.5-5.1 [facility] Work Phone: [phone] Protein [Mass/Vol] 7.5 g/dL 6.4-8.2 [facility] Work Phone: [phone] Sodium [Moles/Vol] 141 mmol/L 136-145 [facility] Work Phone: Triglyceride [Mass/Vol] 140 mg/dL <199 [facility] Work Phone: Comment on above: The drugs N-Acetylcy steine and Metamizole may falsely depress this assay.Serum Triglycerides Reference Interval Normal <150 mg/dL Borderline high 150 - 199 mg/dL High 200 - 499 mg/dL Very High > or = 500 mg/dL WBC (Bld) [#/Vol] 8.4 10*3/uL 4.4-11.0 [facility] Work Phone: Blood erythrocytes count (nu mber/volume)on 11-22-2021 RBC (Bld) [#/Vol] 4.50 10*6/uL 4.2-5.4 [facility] Work Phone: [phone] Blood hemoglobin measurement (mass/volume)on 11-22-2021 Hemoglobin (Bld) [Mass/Vol] 13.2 g/dL 12.0-15.0 [facility] Work Phone: [phone] Blood lymphocytes/100 leukoc yteson 11-22-2021 Lymphocytes/100 WBC (Bld) 29.3 % 19-41 [facility] Work Phone: Blood monocytes/100 leukocyt eson 11-22-2021 Monocytes/100 WBC (Bld) 11.3 % 0-10 [facility] Work Phone: Blood platelet mean volumeon 11-22-2021 Platelet mean volume (Bld) [Entitic vol] 10.3 fL 6.2-12.0 [facility] Work Phone: [phone] Determination of erythrocyte mean corpuscular volume (MCV)on 11-22-2021 MCV (RBC) [Entitic vol] 90.9 fL 81-99 [facility] Work Phone: Hematocrit Auto (Bld) [Volum e fraction]on 11-22-2021 Hematocrit (Bld) [Volume fraction] 40.9 % 37-47 [facility] Work Phone: [phone] Laboratory - Chemistry and C hemistry - challengeon 11-22-2021 ALP [Catalytic activity/Vol] 76 U/L 45-117 [facility] Work Phone: ALT [Catalytic activity/Vol] 21 U/L 13-56 [facility] Work Phone: CO2 [Moles/Vol] 29.0 mmol/L 21.0-32.0 [facility] Work Phone: [phone] Globulin (S) [Mass/Vol] 3.5 g/dL 2.2-4.2 [facility] Work Phone: [phone] Urea nitrogen/Creatinine [Mass ratio] 13.9 mg/mg 10-20 [facility] Work Phone: Laboratory - Hematology and Cell countson 11-22-2021 Erythrocyte distribution width (RBC) [Entitic vol] 45.8 fL 35.1-43.9 [facility] Work Phone: Erythrocyte distribution width (RBC) [Ratio] 13.6 % 11.6-14.6 [facility] Work Phone: Immature granulocytes/100 WBC (Bld) 0.400 % 0.0-0.9 [facility] Work Phone: [phone] Comment on above: IG% - Immature Granu locytes (promyelocytes, myelocytes and metamyelocytes) > 1% indicates that a LEFT SHIFT is Present. MCH (RBC) [Entitic mass] 29.3 pg 27.0-32.0 [facility] Work Phone: Nucleated RBC/100 WBC (Bld) [Ratio] 0 % 0-5 [facility] Work Phone: MCHC Auto (RBC) [Mass/Vol]on 11-22-2021 MCHC (RBC) [Mass/Vol] 32.3 g/dL 32-36 [facility] Work Phone: No Panel Informationon 11-22 Estimated GFR (MDRD) Amer 66 mL/min >60 [facility] Work Phone: Comment on above: GFR Calc Estimated GFR (MDRD) Non-Af Amer 54 mL/min >60 [facility] Work Phone: Comment on above: Non- GFR Calc Platelets bldon 11-22-2021 Platelets (Bld) [#/Vol] 429 10*3/uL 150-450 [facility] Work Phone: Serum or plasma albumin abdi urement (mass/volume)on 11-22-2021 Albumin [Mass/Vol] 4.0 g/dL 3.2-5.0 [facility] Work Phone: Serum or plasma albumin/glob ulin mass ratioon 11-22-2021 Albumin/Globulin [Mass ratio] 1.1 {ratio} 0.9-2.4 [facility] Work Phone: Serum or plasma calcitriol m easurement (mass/volume)on 11-22-2021 1,25-dihydroxyvitamin D3 [Mass/Vol] 37.7 pg/mL 24.8-81.5 [facility] Work Phone: Comment on above: Please note refere nce interval changePerformed at: - Lab[address] [id number] Director: Mendy Hooper MD, Phone: [phone] Serum or plasma calcium abid urement (mass/volume)on 11-22-2021 Calcium [Mass/Vol] 9.3 mg/dL 8.5-10.1 [facility] Work Phone: Serum or plasma cholesterol in HDL measurement (mass/volume)on 11-22-2021 Cholesterol in HDL [Mass/Vol] 45 mg/dL >40 [facility] Work Phone: Comment on above: The drugs N-Acetylcy steine and Metamizole may falsely depress this assay. Reference Range HDL <40 mg/dL Low HDL Cholesterol HDL >or= 60 mg/dL High HDL Cholesterol Serum or plasma cholesterol in VLDL measurement (mass/volume)on 11-22-2021 Cholesterol in VLDL [Mass/Vol] 28 mg/dL 5-40 [facility] Work Phone: Serum or plasma creatinine m easurement (mass/volume)on 11-22-2021 Creatinine [Mass/Vol] 1.08 mg/dL 0.55-1.02 [facility] Work Phone: Comment on above: The validity of the calculated GFR & GFRAA in patients over 70 years has not been determined. Clinical correlation is essential. Serum or plasma low density lipoprotein (LDL) cholesterol measurement (mass/volume)on 11-22-2021 Cholesterol in LDL [Mass/Vol] 203 mg/dL 0-130 [facility] Work Phone: Serum or plasma urea nitroge n measurement (mass/volume)on 11-22-2021 Urea nitrogen [Mass/Vol] 15 mg/dL 7-18 [facility] Work Phone: Thin prep Papanicolaou smear with manual screeningon 11-22-2021 Thin prep Papanicolaou smear with manual screening 15 U/L 15-37 [facility] Work Phone: Thin prep Papanicolaou smear with manual screening 4 5-15 [facility] Work Phone: Vital Signs Date Time Vital Sign Value Performing Clinician Socorro miller 11-03-2024 16:27-0400 Body temperature 98.9 [degF] Marsha Mendez LICENSE CLERK-C Work Phone: 9(095)129-985258 [place] [address] 11-03-2024 16:27-0400 Diastolic blood pressure 67 mm[Hg] Marsha Mendez LICENSE CLERK-C Work Phone: 9(174)724-247458 [place] [address] 11-03-2024 16:27-0400 Heart rate 71 /min Marsha Mendez LICENSE CLERK-C Work Phone: 9(404)137-401694 [place] [address] 11-03-2024 16:27-0400 Respiratory rate 20 /min Marsha Mendez LICENSE CLERK-C Work Phone: 9(171)004-016794 [place] [address] 11-03-2024 16:27-0400 SaO2% (BldA) [Mass fraction] 94 % Marsha Mendez LICENSE CLERK-C Work Phone: 9(296)979-255794 [place] [address] 11-03-2024 16:27-0400 Systolic blood pressure 132 mm[Hg] Marsha Mendez LICENSE CLERK-C Work Phone: 2(155)904-094994 [place] [address] 11-03-2024 16:00-0400 Inhaled oxygen flow rate 2 L/min Marsha Mendez LICENSE CLERK-C Work Phone: 5(660)158-771294 [place] [address] 11-03-2024 13:18-0400 Body height 160.02 cm Marsha Mendez LICENSE CLERK-C Work Phone: 3(935)156-207794 [place] [address] 11-03-2024 13:18-0400 Body mass index (BMI) [Ratio] 27.7 kg/m2 Marsha Mendez LICENSE CLERK-C Work Phone: 1(452)895-624894 [place] [address] 11-03-2024 13:18-0400 Body weight 71 kg Marsha Mendez LICENSE CLERK-C Work Phone: 3(411)779-260094 [place] [address] 11-03-2024 13:00-0400 Diastolic blood pressure 72 mm[Hg] Marsha Mendez LICENSE CLERK-C Work Phone: 0(772)215-881894 [place] [address] 11-03-2024 13:00-0400 Heart rate 67 /min Masrha Mendez LICENSE CLERK-C Work Phone: 2(250)043-638794 [place] [address] 11-03-2024 13:00-0400 Respiratory rate 18 /min Marsha Mendez LICENSE CLERK-C Work Phone: 6(319)440-160094 [place] [address] 11-03-2024 13:00-0400 Systolic blood pressure 124 mm[Hg] Marsha Mendez LICENSE CLERK-C Work Phone: 9(709)442-461858 [place] [address] 11-03-2024 08:43-0400 Body mass index (BMI) [Ratio] 26.5 kg/m2 Marsha Mendez LICENSE CLERK-C Work Phone: 8(846)670-311758 [place] [address] 11-03-2024 08:43-0400 Body temperature 97.4 [degF] Marsha Mendez LICENSE CLERK-C Work Phone: 9(915)653-307793 [address] 11-03-2024 08:43-0400 Body weight 68.03 kg Marsha Mendez LICENSE CLERK-C Work Phone: 3(474)597-271794 [place] [address] 10-06-2024 10:09-0400 Body mass index (BMI) [Ratio] 27.3 kg/m2 Marsha Mendez LICENSE CLERK-C Work Phone: 7(131)712-684194 [place] [address] 10-06-2024 10:09-0400 Body temperature 97.4 [degF] Marsha Mendez LICENSE CLERK-C Work Phone: 6(065)642-571294 [place] [address] 10-06-2024 10:09-0400 Body weight 69.85 kg Marsha Mendez LICENSE CLERK-C Work Phone: 7(953)457-882094 [place] [address] 10-06-2024 10:09-0400 Diastolic blood pressure 79 mm[Hg] Marsha Mendez LICENSE CLERK-C Work Phone: 3(508)058-153193 [address] 10-06-2024 10:09-0400 Heart rate 64 /min Marsha Mendez LICENSE CLERK-C Work Phone: 9(653)790-956758 [place] [address] 10-06-2024 10:09-0400 Respiratory rate 16 /min Marsha Mendez LICENSE CLERK-C Work Phone: 4(901)986-769594 [place] [address] 10-06-2024 10:09-0400 SaO2% (BldA) [Mass fraction] 94 % Marsha Mendez LICENSE CLERK-C Work Phone: 3(547)722-583494 [place] [address] 10-06-2024 10:09-0400 Systolic blood pressure 117 mm[Hg] Marsha Mendez LICENSE CLERK-C Work Phone: 9(703)847-582594 [place] [address] 07-26-2024 06:23-0400 Body mass index (BMI) [Ratio] 27.3 kg/m2 Marsha Mendez LICENSE CLERK-C Work Phone: 9(641)774-291094 [place] [address] 07-26-2024 06:23-0400 Body weight 69.85 kg Marsha Mendez LICENSE CLERK-C Work Phone: 2(771)997-355894 [place] [address] 07-26-2024 06:23-0400 Diastolic blood pressure 68 mm[Hg] Marsha Mendez LICENSE CLERK-C Work Phone: 0(314)732-480194 [place] [address] 07-26-2024 06:23-0400 Heart rate 58 /min Marsha Mendez LICENSE CLERK-C Work Phone: 8(838)936-502794 [place] [address] 07-26-2024 06:23-0400 Respiratory rate 18 /min Marsha Mendez LICENSE CLERK-C Work Phone: 9(775)169-410794 [place] [address] 07-26-2024 06:23-0400 SaO2% (BldA) [Mass fraction] 94 % Marsha Mendez LICENSE CLERK-C Work Phone: 6(696)675-222394 [place] [address] 07-26-2024 06:23-0400 Systolic blood pressure 111 mm[Hg] Marsha Mendez LICENSE CLERK-C Work Phone: 9(102)288-838894 [place] [address] 07-20-2024 08:00-0400 Body height 160.02 cm Marsha Mendez LICENSE CLERK-C Work Phone: 4(666)903-119794 [place] [address] 07-20-2024 08:00-0400 Body mass index (BMI) [Ratio] 27.3 kg/m2 Marsha Mendez LICENSE CLERK-C Work Phone: 9(430)123-848594 [place] [address] 07-20-2024 08:00-0400 Body temperature 97.4 [degF] Marsha Mendez LICENSE CLERK-C Work Phone: 0(190)690-891694 [place] [address] 07-20-2024 08:00-0400 Body weight 69.85 kg Marsha Mendez LICENSE CLERK-C Work Phone: 6(922)980-237894 [place] [address] 07-20-2024 08:00-0400 Diastolic blood pressure 77 mm[Hg] Marsha Mendez LICENSE CLERK-C Work Phone: 6(740)129-584394 [place] [address] 07-20-2024 08:00-0400 Heart rate 68 /min Marsha Mendez LICENSE CLERK-C Work Phone: [facility] 07-20-2024 08:00-0400 Respiratory rate 18 /min Marsha Mendez LICENSE CLERK-C Work Phone: [facility] 07-20-2024 08:00-0400 SaO2% (BldA) [Mass fraction] 95 % Marshachristianne Mendez LICENSE CLERK-C Work Phone: [facility] 07-20-2024 08:00-0400 Systolic blood pressure 112 mm[Hg] Marsha Mendez LICENSE CLERK-C Work Phone: [facility] 07-11-2024 11:55-0400 Body temperature 97.6 [degF] Melissa Pickering LICENSE CLERK-C Work Phone: [facility] 07-11-2024 11:55-0400 Diastolic blood pressure 45 mm[Hg] Melissa Pickering LICENSE CLERK-C Work Phone: [facility] 07-11-2024 11:55-0400 Heart rate 79 /min Melissa Pickering LICENSE CLERK-C Work Phone: [facility] 07-11-2024 11:55-0400 Respiratory rate 16 /min Melissa Pickering LICENSE CLERK-C Work Phone: [facility] 07-11-2024 11:55-0400 SaO2% (BldA) [Mass fraction] 99 % Melissa Pickering LICENSE CLERK-C Work Phone: [facility] 07-11-2024 11:55-0400 Systolic blood pressure 98 mm[Hg] Melissa Pickering LICENSE CLERK-C Work Phone: [facility] 07-11-2024 08:05-0400 Body height 160.02 cm Melissa Pickering LICENSE CLERK-C Work Phone: [facility] 07-11-2024 08:05-0400 Body mass index (BMI) [Ratio] 26.9 kg/m2 Melissa Pickering LICENSE CLERK-C Work Phone: [facility] 07-11-2024 08:05-0400 Body weight 69 kg Melissa Pickering LICENSE CLERK-C Work Phone: [facility] 03-21-2024 07:50-0500 Body height 160.02 cm Melissa Pickering LICENSE CLERK-C Work Phone: [facility] 03-21-2024 07:50-0500 Body mass index (BMI) [Ratio] 25.7 kg/m2 Melissa Pickering LICENSE CLERK-C Work Phone: [facility] 03-21-2024 07:50-0500 Body temperature 98.1 [degF] Melissa Pickering LICENSE CLERK-C Work Phone: [facility] 03-21-2024 07:50-0500 Body weight 65.77 kg Melissa Pickering LICENSE CLERK-C Work Phone: [facility] 03-21-2024 07:50-0500 Diastolic blood pressure 68 mm[Hg] Melissa Pickering LICENSE CLERK-C Work Phone: [facility] 03-21-2024 07:50-0500 Heart rate 67 /min Melissa Pickering LICENSE CLERK-C Work Phone: [facility] 03-21-2024 07:50-0500 Respiratory rate 20 /min Melissa Pickering LICENSE CLERK-C Work Phone: [facility] 03-21-2024 07:50-0500 SaO2% (BldA) [Mass fraction] 96 % Melissa Pickering LICENSE CLERK-C Work Phone: [facility] 03-21-2024 07:50-0500 Systolic blood pressure 105 mm[Hg] Melissa Pickering LICENSE CLERK-C Work Phone: [facility] 04-15-2023 07:01-0500 Body height 160.02 cm [facility] Work Phone: [facility] 04-15-2023 07:01-0500 Body mass index (BMI) [Ratio] 25.4 kg/m2 [facility] Work Phone: 5(550)617-702594 [place] [address] 04-15-2023 07:01-0500 Body temperature 94.7 [degF] [facility] Work Phone: 1(933)311-488694 [place] [address] 04-15-2023 07:01-0500 Body weight 65.31 kg [facility] Work Phone: 0(461)205-208094 [place] [address] 04-15-2023 07:01-0500 Diastolic blood pressure 60 mm[Hg] [facility] Work Phone: 2(529)340-977494 [place] [address] 04-15-2023 07:01-0500 Heart rate 70 /min [facility] Work Phone: 3(948)476-388394 [place] [address] 04-15-2023 07:01-0500 Respiratory rate 20 /min [facility] Work Phone: 7(457)377-720894 [place] [address] 04-15-2023 07:01-0500 SaO2% (BldA) [Mass fraction] 99 % [facility] Work Phone: 4(302)729-532794 [place] [address] 04-15-2023 07:01-0500 Systolic blood pressure 101 mm[Hg] [facility] Work Phone: 2(940)158-998294 [place] [address] 10-06-2022 08:27-0400 Body height 160.02 cm [facility] Work Phone: 9(597)830-151994 [place] [address] 10-06-2022 08:27-0400 Body mass index (BMI) [Ratio] 26 kg/m2 [facility] Work Phone: 7(176)819-532994 [place] [address] 10-06-2022 08:27-0400 Body temperature 96.2 [degF] [facility] Work Phone: 2(169)146-039394 [place] [address] 10-06-2022 08:27-0400 Body weight 66.67 kg [facility] Work Phone: 3(717)088-442294 [place] [address] 10-06-2022 08:27-0400 Diastolic blood pressure 62 mm[Hg] [facility] Work Phone: 7(338)168-155894 [place] [address] 10-06-2022 08:27-0400 Heart rate 76 /min [facility] Work Phone: 4(264)779-913294 [place] [address] 10-06-2022 08:27-0400 Respiratory rate 18 /min [facility] Work Phone: [facility] 10-06-2022 08:27-0400 SaO2% (BldA) [Mass fraction] 95 % [facility] Work Phone: [facility] 10-06-2022 08:27-0400 Systolic blood pressure 90 mm[Hg] [facility] Work Phone: [facility] 02-12-2022 09:46-0500 Body height 160.02 cm [facility] Work Phone: [facility] Work Phone: 02-12-2022 09:46-0500 Body mass index (BMI) [Ratio] 26.6 kg/m2 [facility] Work Phone: [facility] Work Phone: 02-12-2022 09:46-0500 Body temperature 97.3 [degF] [facility] Work Phone: [facility] Work Phone: 02-12-2022 09:46-0500 Body weight 68.2 kg [facility] Work Phone: [facility] Work Phone: 02-12-2022 09:46-0500 Diastolic blood pressure 72 mm[Hg] [facility] Work Phone: [facility] Work Phone: 02-12-2022 09:46-0500 Heart rate 67 /min [facility] Work Phone: [facility] Work Phone: 02-12-2022 09:46-0500 Respiratory rate 16 /min [facility] Work Phone: [facility] Work Phone: 02-12-2022 09:46-0500 SaO2% (BldA) [Mass fraction] 96 % [facility] Work Phone: [facility] Work Phone: 02-12-2022 09:46-0500 Systolic blood pressure 116 mm[Hg] [facility] Work Phone: [facility] Work Phone: 01-14-2022 10:39-0400 Body temperature 98 [degF] [facility] Work Phone: [facility] Work Phone: 01-14-2022 10:39-0400 Diastolic blood pressure 66 mm[Hg] [facility] Work Phone: [facility] Work Phone: 01-14-2022 10:39-0400 Heart rate 61 /min [facility] Work Phone: [facility] Work Phone: 01-14-2022 10:39-0400 Respiratory rate 16 /min [facility] Work Phone: [facility] Work Phone: 01-14-2022 10:39-0400 SaO2% (BldA) [Mass fraction] 97 % [facility] Work Phone: [facility] Work Phone: 01-14-2022 10:39-0400 Systolic blood pressure 106 mm[Hg] [facility] Work Phone: [facility] Work Phone: 01-14-2022 09:01-0400 Body height 160.02 cm [facility] Work Phone: [facility] Work Phone: 01-14-2022 09:01-0400 Body mass index (BMI) [Ratio] 26.5 kg/m2 [facility] Work Phone: [facility] Work Phone: 01-14-2022 09:01-0400 Body weight 68 kg [facility] Work Phone: [facility] Work Phone: 12-10-2021 13:17-0400 Body height 160.02 cm [facility] Work Phone: [facility] Work Phone: 12-10-2021 13:17-0400 Body mass index (BMI) [Ratio] 26.6 kg/m2 [facility] Work Phone: [facility] Work Phone: 12-10-2021 13:17-0400 Body temperature 97.4 [degF] [facility] Work Phone: [facility] Work Phone: 12-10-2021 13:17-0400 Body weight 68.2 kg [facility] Work Phone: [facility] Work Phone: 12-10-2021 13:17-0400 Diastolic blood pressure 69 mm[Hg] [facility] Work Phone: [facility] Work Phone: 12-10-2021 13:17-0400 Heart rate 60 /min [facility] Work Phone: [facility] Work Phone: 12-10-2021 13:17-0400 Respiratory rate 18 /min [facility] Work Phone: [facility] Work Phone: 12-10-2021 13:17-0400 SaO2% (BldA) [Mass fraction] 98 % [facility] Work Phone: [facility] Work Phone: 12-10-2021 13:17-0400 Systolic blood pressure 105 mm[Hg] [facility] Work Phone: [facility] Work Phone: 10-16-2021 05:59-0400 Body height 160.02 cm [facility] Work Phone: [facility] Work Phone: 10-16-2021 05:59-0400 Body mass index (BMI) [Ratio] 26.2 kg/m2 [facility] Work Phone: [facility] Work Phone: 10-16-2021 05:59-0400 Body temperature 98.7 [degF] [facility] Work Phone: [facility] Work Phone: 10-16-2021 05:59-0400 Body weight 67.13 kg [facility] Work Phone: [facility] Work Phone: 10-16-2021 05:59-0400 Diastolic blood pressure 70 mm[Hg] [facility] Work Phone: [facility] Work Phone: 10-16-2021 05:59-0400 Heart rate 57 /min [facility] Work Phone: [facility] Work Phone: 10-16-2021 05:59-0400 Respiratory rate 17 /min [facility] Work Phone: [facility] Work Phone: 10-16-2021 05:59-0400 SaO2% (BldA) [Mass fraction] 93 % [facility] Work Phone: [facility] Work Phone: 10-16-2021 05:59-0400 Systolic blood pressure 104 mm[Hg] [facility] Work Phone: [facility] Work Phone: 09-16-2021 10:14-0400 Body mass index (BMI) [Ratio] 26.5 kg/m2 [facility] Work Phone: [facility] Work Phone: 09-16-2021 10:14-0400 Body temperature 97.4 [degF] [facility] Work Phone: [facility] Work Phone: 06-27-2022 10:14-0400 Body weight 68.03 kg [facility] Work Phone: [facility] Work Phone: 09-16-2021 10:14-0400 Diastolic blood pressure 67 mm[Hg] [facility] Work Phone: [facility] Work Phone: 09-16-2021 10:14-0400 Heart rate 65 /min [facility] Work Phone: [facility] Work Phone: 09-16-2021 10:14-0400 Respiratory rate 16 /min [facility] Work Phone: [facility] Work Phone: 09-16-2021 10:14-0400 SaO2% (BldA) [Mass fraction] 97 % [facility] Work Phone: [facility] Work Phone: 09-16-2021 10:14-0400 Systolic blood pressure 104 mm[Hg] [facility] Work Phone: [facility] Work Phone: 05-14-2021 09:52-0500 Body height 160.02 cm [facility] Work Phone: [facility] Work Phone: 05-14-2021 09:52-0500 Body mass index (BMI) [Ratio] 26.5 kg/m2 [facility] Work Phone: [facility] Work Phone: 05-14-2021 09:52-0500 Body temperature 97.4 [degF] [facility] Work Phone: [facility] Work Phone: 05-14-2021 09:52-0500 Body weight 68.03 kg [facility] Work Phone: [facility] Work Phone: 05-14-2021 09:52-0500 Diastolic blood pressure 73 mm[Hg] [facility] Work Phone: [facility] Work Phone: 05-14-2021 09:52-0500 Heart rate 73 /min [facility] Work Phone: [facility] Work Phone: 05-14-2021 09:52-0500 Respiratory rate 16 /min [facility] Work Phone: [facility] Work Phone: 05-14-2021 09:52-0500 SaO2% (BldA) [Mass fraction] 97 % [facility] Work Phone: [facility] Work Phone: 05-14-2021 09:52-0500 Systolic blood pressure 107 mm[Hg] [facility] Work Phone: [facility] Work Phone: Encounters Encounter Date Encounter Type Care Provider Facility Start: 11-07-2024 ambulatory Marsha Mendez Facili ty:[facility] Start: 11-03-2024 Evaluation and manag ement of inpatient Dr. Celia Modi MD -Progressive Care Unit Work Phone: Start: 11-03-2024 ambulatory Melissa Pickering NP Fac ility:[facility] Start: 11-03-2024 Patient encounter procedure Melissa Pickering NP-C -Cat Scan [facility] Work Phone: Start: 10-28-2024 Encounter for other preprocedural examination Melissa Pickering NP [facility] Start: 10-06-2024 End: 10-06-2024 Patient encounter procedure Melissa Pickering NP-C -[facility] Work Phone: Start: 10-06-2024 End: 10-06-2024 ambulatory Marsha Mendez LICENSE CLERK-C Work Phone: -[facility] Start: 10-06-2024 End: 10-06-2024 ambulatory Marsha Mendez Facility:[facility] Start: 09-27-2024 End: 09-27-2024 ambulatory Marsha Mendez LICENSE CLERK-C Work Phone: -Cat Scan [facility] Start: 09-27-2024 End: 09-27-2024 Patient encounter procedure Melissa Pickering LICENSE CLERK-C -Cat Scan [facility] Work Phone: Start: 09-27-2024 End: 09-27-2024 ambulatory Melissa Pickering LICENSE CLERK Facility:[facility] Start: 08-05-2024 End: 08-05-2024 ambulatory Marsha Mendez LICENSE CLERK-C Work Phone: [facility] Work Phone: Start: 08-05-2024 End: 08-05-2024 Patient encounter procedure Melissa Pickering LICENSE CLERK-C -Sleep Lab Work Phone: Start: 08-05-2024 End: 08-05-2024 ambulatory Melissa Pickering LICENSE CLERK Facility:[facility] Start: 07-26-2024 End: 07-26-2024 Patient encounter procedure Tamia Wooten LICENSE CLERK-C -[facility] Work Phone: Start: 07-26-2024 End: 07-26-2024 ambulatory Marsha Mendez Facility:[facility] Start: 07-20-2024 End: 07-20-2024 Patient encounter procedure Melissa Pickering LICENSE CLERK-C -[facility] Work Phone: Start: 07-20-2024 End: 07-20-2024 ambulatory Marsha Mendez Facility:[facility] Start: 07-19-2024 End: 07-19-2024 ambulatory Marsha Mendez LICENSE CLERK-C Work Phone: [facility] Work Phone: Start: 07-19-2024 End: 07-19-[address] [facility] Marsha Mendez LICENSE CLERK-C -[facility] Start: 07-19-2024 End: 07-19-2024 ambulatory Marsha Mendez Facility:[facility] Start: 07-11-2024 ambulatory Blanco Ayala Facility: [facility] Start: 07-11-2024 Non-patient / Non-visit Dr. Blanco Ayala MD -[facility] Start: 07-11-2024 End: 07-11-2024 Admission to same day surgery center Dr. Blanco Ayala MD -Endoscopy Work Phone: Start: 07-11-2024 End: 07-11-2024 ambulatory Melissa Pickering LICENSE CLERK-C Work Phone: [facility] Work Phone: Start: 06-23-2024 Non-patient / Non-visit Trinidadmabel Short [facility] Work Phone: Start: 06-23-2024 ambulatory Marsha Mendez Facili ty:[facility] Start: 06-20-2024 End: 06-20-2024 ambulatory Melissa Pickering LICENSE CLERK-C Work Phone: [facility] Work Phone: Start: 06-20-2024 End: 06-20-2024 Patient encounter procedure Melissa Pickering NP-C -Cat Scan, [facility] Work Phone: Start: 06-20-2024 End: 06-20-2024 ambulatory Melissa Pickering NP Facility:[facility] Start: 06-16-2024 End: 06-16-2024 ambulatory Melissa Pickering NP-C Work Phone: [facility] Work Phone: Start: 06-16-2024 End: 06-16-[address] [facility] Marsha Mendez NP-C -Ultrasound, [facility] Work Phone: Start: 06-16-2024 End: 06-16-2024 ambulatory Marsha Mendez Facility:[facility] Start: 06-08-2024 End: 06-08-2024 ambulatory Melissa Pickering NP-C Work Phone: [facility] Work Phone: Start: 06-08-2024 End: 06-08-[address] [facility] Marsha Mendez NP-C -Laboratory, [facility] Start: 06-08-2024 End: 06-08-2024 ambulatory Marsha Mendez Facility:[facility] Start: 03-21-2024 End: 03-21-2024 Patient encounter procedure Melissa Pickering NP-C -[facility] Work Phone: Start: 03-21-2024 End: 03-[facility] Start: 03-14-2024 End: 03-14-2024 Patient encounter procedure Melissa Pickering LICENSE CLERK-C -Cat Scan, [facility] Work Phone: Start: 03-14-2024 End: 03-14-2024 ambulatory Melissa Pickering LICENSE CLERK Facility:[facility] Start: 12-22-2023 End: 12-22-2023 ambulatory [facility] Facility:[facility] Start: 12-18-2023 ambulatory [facility] Facility :[facility] Start: 12-18-2023 End: 12-18-2023 ambulatory [facility] Facility:[facility] Start: 12-01-2023 End: 12-01-2023 ambulatory [facility] Facility:[facility] Start: 07-06-2023 End: 07-06-[address] [facility] Work Phone: [facility] Work Phone: Start: 07-06-2023 End: 07-06-2023 Patient encounter procedure [facility] Work Phone: [facility]-Laboratory Work Phone: Start: 04-15-2023 End: 04-15-2023 Patient encounter procedure [facility] Work Phone: [facility] Work Phone: Start: 03-12-2023 End: 03-12-2023 ambulatory [facility] Work Phone: Start: 03-12-2023 End: 03-12-2023 Patient encounter procedure [facility]-Cat Scan, [facility] Work Phone: Start: 10-20-2022 End: 10-20-[address] [facility] Work Phone: [facility] Work Phone: Start: 10-20-2022 End: 10-20-2022 Patient encounter procedure [facility] Work Phone: [facility]-Laboratory Work Phone: Start: 10-06-2022 End: 10-06-2022 Patient encounter procedure [facility] Work Phone: [facility]-Pulmonary Medicine [facility] Work Phone: Start: 03-11-2022 End: 03-11-[address] [facility] Work Phone: [facility] Work Phone: Start: 03-11-2022 End: 03-11-2022 Patient encounter procedure [facility] Work Phone: [facility]-Laboratory Start: 02-27-2022 End: 02-27-[address] [facility] Work Phone: [facility] Work Phone: Start: 02-27-2022 End: 02-27-2022 Patient encounter procedure [facility] Work Phone: [facility] Start: 02-12-2022 End: 02-12-2022 Patient encounter procedure [facility] Work Phone: [facility]-Pulmonary Medicine [facility] Start: 01-14-2022 Non-patient / Non-visit [facility] Work Phone: [facility] Start: 01-14-2022 End: 01-14-2022 Admission to same day surgery center [facility] Work Phone: [facility]-Endoscopy Start: 01-14-2022 End: 01-14-[address] [facility] Work Phone: [facility] Work Phone: Start: 12-20-2021 End: 12-20-[address] [facility] Work Phone: [facility] Work Phone: Start: 12-20-2021 End: 12-20-2021 Patient encounter procedure [facility] Work Phone: [facility]-Sleep Lab Start: 12-10-2021 End: 12-10-2021 Patient encounter procedure [facility] Work Phone: [facility] Start: 11-22-2021 End: 11-22-[address] [facility] Work Phone: [facility] Work Phone: Start: 11-22-2021 End: 11-22-2021 Patient encounter procedure [facility] [address] Work Phone: [facility]-Laboratory Start: 11-20-2021 End: 11-20-[address] [facility] Work Phone: [facility] Work Phone: Start: 11-20-2021 End: 11-20-2021 Patient encounter procedure [facility] Work Phone: [facility]-Sleep Lab Start: 10-25-2021 End: 10-25-2021 Patient encounter procedure [facility] Work Phone: [facility]-Outpatient Breast Imaging Start: 10-16-2021 End: 10-16-2021 Patient encounter procedure [facility] Work Phone: [facility]-Pulmonary Medicine [facility] Start: 09-16-2021 End: 09-16-2021 Patient encounter procedure [facility] Work Phone: [facility]-Pulmonary Medicine [facility] Start: 08-21-2021 End: 08-21-2021 Patient encounter procedure [facility] Work Phone: [facility]-Sleep Lab Start: 06-04-2021 End: 06-04-2021 Patient encounter procedure [facility] Work Phone: [facility]-Sleep Lab Start: 05-14-2021 End: 05-14-2021 Patient encounter procedure [facility] Work Phone: [facility]-Pulmonary Medicine [facility] Start: 04-16-2021 End: 04-16-2021 Patient encounter procedure [facility] Work Phone: [facility]-Sleep Lab Procedures Date Procedure Procedure Detail Performing Clinician Start: 11-03-2024 Estimated creatinine clearance Marshadaniel Mendez LICENSE CLERK-C Work Phone: Start: 11-03-2024 CT angiography of ch est with contrast Marshadaniel Mendez LICENSE CLERK-C Work Phone: Start: 11-03-2024 Plain chest X-ray Daniella Mendez LICENSE CLERK-C Work Phone: Start: 11-03-2024 Plain chest X-ray Daniellafred Mendez LICENSE CLERK-C Work Phone: Start: 11-03-2024 Biopsy/Inj or Needle Placement Marshadaniel Mendez LICENSE CLERK-C Work Phone: Start: 09-27-2024 CT of chest without contrast Marsha Mendez LICENSE CLERK-C Work Phone: Start: 07-19-2024 Vitamin D, 25-hydrox y measurement Marshachristianne Mendez LICENSE CLERK-C Work Phone: Comment on above: Vitamin D StatusDefi ciency: <20 ng/mL (50nmol/L)Insufficiency: 20-30 ng/mL (50-75 nmol/L)Sufficiency: 30-100 ng/mL (75-250 nmol/L)Toxicity: >100 ng/mL (>250 nmol/L) Start: 07-11-2024 Colonoscopy Melissa Pickering LICENSE CLERK-C Work Phone: Start: 06-20-2024 CT of chest without contrast Melissa Pickering LICENSE CLERK-C Work Phone: Start: 06-16-2024 CT of abdomen Melissa Pickering LICENSE CLERK-C Work Phone: Start: 03-14-2024 CT of chest Melissa Pickering LICENSE CLERK-C Work Phone: Start: 03-12-2023 CT of chest Start: 02-27-2022 CT of chest [facility] Work Phone: Start: 01-14-2022 EGD - PH Probe (MAC) (Right) [facility] Work Phone: Start: 10-25-2021 Screening mammography V Work Phone: Plan of Treatment Date Care Activity Detail Author Start: 11-03-2024 Verification routine [facility] Start: 11-03-2024 [facility] Start: 11-03-2024 Admission procedure [facility] Start: 11-03-2024 Hospital admission, emergency, from emergency room, medical nature [facility] Start: 11-03-2024 End: 11-03-2024 [facility] Start: 11-03-2024 Following clinical pathway protocol [facility] Start: 11-03-2024 Catheterization of vein [facility] Start: 11-03-2024 Oxygen therapy [facility] Start: 11-03-2024 Patient discharge [facility] Start: 11-03-2024 Vital signs measurements [facility] Start: 10-06-2024 Partial thromboplastin time, activated [facility] Start: 10-06-2024 Platelets [#/volume] in Blood [facility] Start: 10-06-2024 Prothrombin time [facility] Start: 07-11-2024 Colonoscopy w/biopsy single/multiple COLONOSCOPY AND BIOPSY [facility] Start: 07-11-2024 Colsc flx w/rmvl of tumor polyp lesion snare tq COLONOSCOPY W/LESION REMOVAL [facility] Start: 07-11-2024 Egd transoral biopsy single/multiple EGD BIOPSY SINGLE/MULTIPLE [facility] Start: 07-11-2024 Patient discharge [facility] Start: 06-16-2024 CT Abdomen [facility] Start: 06-16-2024 CT of abdomen Abdomen Complete [facility] Start: 01-14-2022 Esophagogastroduodenoscopy transoral diagnostic EGD DIAGNOSTIC BRUSH WASH [facility] Work Phone: Start: 01-14-2022 Patient discharge [facility] Work Phone: Start: 11-22-2021 Vitamin D, 1,25-dihydroxy measurement [facility] Work Phone: CT Chest [facility] CT Chest WO contrast [facility] CT Chest WO contrast [facility] Erythrocyte mean cor puscular volume determination [facility] Hematocrit [Volume F raction] of Blood [facility] Hemoglobin [Mass/volume] in Blood [facility] INR in Blood by Coagulation assay [facility] Leukocytes [#/volume] in Blood [facility] Mean corpuscular hem oglobin concentration determination [facility] Mean corpuscular hem oglobin determination [facility] Neutrophil count [facility] Neutrophil percent d ifferential count [facility] Patient Education RAD RN Dischar ge Instructions Needle Biopsy: Lung RAD RN Procedural Sedation [facility] Work Phone: Patient referral [facility] Work Phone: Platelets [#/volume] in Blood [facility] Polysomnography [facility] Red blood cell count [facility] Red cell distributio n width determination [facility] Troponin T.cardiac [ Mass/volume] in Serum or Plasma by High sensitivity method [facility] Troponin T.cardiac [ Mass/volume] in Serum or Plasma by High sensitivity method [facility] Work Phone: Immunizations Immunization Date Immunization Notes Care Provider Arias whitehead 03-21-2024 Seasonal trivalent influenza vaccine, adjuvanted, preservative free Melissa Pickering LICENSE CLERK-C Work Phone: [facility] 02-21-2019 tetanus toxoid, redu onur diphtheria toxoid, and acellular pertussis vaccine, adsorbed [facility] Work Phone: [facility] 02-21-2019 diphtheria, tetanus toxoids and acellular pertussis vaccine, unspecified formulation [facility] Work Phone: [facility] Work Phone: Payers Date Payer Category Payer Self-pay [id number] 2023 Medicare [id number] Private Health Insurance [facility] [id number] Unknown [id number] Unknown [id number] Unknown [id number] 2.16.8 [id number] Unknown [id number] 2.16.8 [id number] Unknown [id number] 2.16.8 40.1.290197.3.579.2.462 Unknown [id number] 2.16.8 40.1.821422.3.579.2.462 Unknown [id number] 2.16.8 40.1.794138.3.579.2.462 Unknown [id number] 2.16.8 40.1.868267.3.579.2.462 Unknown [id number] 2.16.8 40.1.892994.3.579.2.462 Unknown [id number] 2.16.8 40.1.859719.3.579.2.462 Unknown [id number] 2.16.8 40.1.918523.3.579.2.462 Unknown [id number] 2.16.8 40.1.572085.3.579.2.462 Unknown [id number] 2.16.8 40.1.968766.3.579.2.462 Unknown [id number] 2.16.8 40.1.147183.3.579.2.462 Unknown [id number] 2.16.8 40.1.681269.3.579.2.462 Unknown [id number] 2.16.8 40.1.758855.3.579.2.462 Unknown [id number] 2.16.8 40.1.041580.3.579.2.462 Unknown [id number] 2.16.8 40.1.454339.3.579.2.462 Unknown [id number] 2.16.8 40.1.942867.3.579.2.462 Unknown [id number] 2.16.8 40.1.335866.3.579.2.462 Unknown [id number] 2.16.8 40.1.074962.3.579.2.462 Unknown [id number] 2.16.8 40.1.387607.3.579.2.462 Unknown [id number] 2.16.8 40.1.032072.3.579.2.462 Social History Date Type Detail Facility Start: 05-14-2021 End: 04-15-2023 Tobacco smoking status NHIS Unknown if ever smoked [facility] Start: 1960 Sex Assigned At Female [facility] Start: 12-01-2023 End: 11-03-2024 Tobacco smoking status NHIS Smokes tobacco daily (finding) [facility] Start: 06-16-2024 End: 07-11-2024 Sex Female (finding) [facility] Not [facility] NEGATED: Highlighted row Not [facility] Medical Equipment Procedure Code Equipment Code Equipment Original Text Equipment Identifier Dates Gastrointestinal telemetric monitoring system ([id number] [facility] Start: 01-14-2022 Goals Date Patient Goal Desired Activity /State Functional Status Date Assessment Result Facility 11-03-2024 Functional status Ambulates [facility] Work Phone: Mental Status Date Assessment Result Facility 11-03-2024 Cognitive function Awake;Alert;A ppropriate;Fol lows Commands [facility] Work Phone: 07-11-2024 Cognitive function Voice/Name [facility] Work Phone: 01-14-2022 Cognitive function Voice/Name;Touch/Shaki ng [facility] Work Phone: Clinical Notes 03-21-2024 to 11-03-2024 Note Date & Type Note Facility 11-03-2024 History and physi shawanda note [facility] 11-03-2024 Radiology Diagnostic study note [facility] Imaging Services [address] [place] [address] CTA Chest W/WO Contrast MR#: [id number] Acct: [id number] Name: MARY AGUILERA Rep #: [id number] : 1960 F 64 From: Alejo Pereira MD PCP: Marsha Mendez [facility], LICENSE CLERK-C Status: REG ER Study:CTA Chest W/WO Contrast Date of Exam: 11/03/24 Exam# [id number] Ordering Dr: Azul Guerrero MD PROCEDURE: CTA CHEST W/WO CONTRAST 11/03/2024 REASON FOR EXAM: LUNG MASS, HYPOXIA, HEMOPTYSIS TECHNIQUE: CTA CHEST W/WO CONTRAST Multiplanar Sagittal and Coronal images were obtained. CONTRAST: Isovue 370 VOLUME: 99 mL One or more dose reduction techniques were used (e.g., Automated exposure control, adjustment of the mA and/or kV according to patient size, use of iterative reconstruction technique). RADIATION DOSE SUMMARY: CTDlvol: 6 mGy DLP: 205 mGycm COMPARISON: 09/28/2024 CT. FINDINGS: The peripheral soft tissues are unremarkable. No acute osseous abnormalities. The upper abdomen is unremarkable. Throughout all lobes are lobar, segmental, and subsegmental filling defects compatible with pulmonary emboli. Flattening of the interventricular septum possibly representing heart strain. Wedge-shaped filling defects within the bilateral lower lobes which may represent infarctions. Previously visualized left lower lobe nodule is obscured by a likely region of infarction. Unchanged mediastinal and perihilar lymphadenopathy. CT/CTA Chest W/WO Contrast IMPRESSION: Bilateral pulmonary emboli with evidence of heart strain. Bilateral lower lobe pulmonary infarctions. Left lower lobe nodule is obscured due to infarction. Stable lymphadenopathy. Critical results communicated to Dr. Guerrero at 3 p.m.. Reading Location: [id number] CC: [facility] LICENSE CLERK-C Marsha Mendez; Dr. Italo Guerrero MD ~ Pellet Post Inspector: Signed [facility] 11-03-2024 Discharge summary [facility] 11-03-2024 Discharge summary Note Date/Time November 03, 2024 3:02pm [facility] Medical Records Department [address] [place] [address] Emergency Department Summary 11/03/24 MR#: [id number] Acct: [id number] Name: MARY AGUILERA Rep #:[id number] : [id number] 64 From: Italo Guerrero MD PCP: [facility], LICENSE CLERK-C Statu s:REG ER Location: ED ADDENDUM by Dr. Italo Guerrero MD on 11/03/24 at 1502 I received a call from the radiologist at 1501. Patient also has evidence of right heart strain and pulmonary infarct. Will inform the hospitalist. 11/03/24 1502<Electronically signed by Italo Guerrero MD> Cosigner Signature (if applicable): cc: SLOAN LICENSE CLERK-Manohar Mendez ~* Signed ADDENDUM by Dr. Italo Guerrero MD on 11/03/24 at 1449 EKG reveals a sinus rhythm rate of 62. OR was 144 ms per cures duration 84 ms. QT duration 418 ms. [place] is normal. There is some minimal nonspecific changes noted laterally. 11/03/24 1449<Electronically signed by Italo Guerrero MD> Cosigner Signature (if applicable): cc: SLOAN LICENSE CLERK-Manohar Mendez ~* Signed HPI History of Present Illness Chief Complaint: Shortness of Breath Detail of Chief Complaint: Dyspnea, hypoxia hemoptysis after lung biopsy Informant: patient and other (Spoke with radiologist. Post procedure x-ray was obtained there is no evidence of pneumothorax. This was reviewed by me. He states the mass noted on the left side of her chest is suspicious for cancer.) Onset/Context/Timing Onset: Hours Context: Sudden Onset Timing: Continuous (Patient also requiring oxygen. She is not normally on oxygen.) Quality: Status post lung biopsy patient developed hypoxia and hemoptysis. What Location: Pulmonary Current Severity: Mild Maximum Severity: Moderate Worsened by: Status post procedure. Radiologist uncertain what may have caused this. Relieved by: Nothing Associated Symptoms Associated Symptoms: Hypoxia, left-sided pleuritic pain hemoptysis Narrative Narrative: Patient is a 64-year-old woman. She had appointment for outpatient lung biopsy. [facility] [facility]. Post procedure patient developed hypoxia and hemoptysis. She has no history of hemoptysis. She is a smoker half pack per day since she was a teenager. The lesion that is noted on the left is suspicious for malignancy. She denies leg pain, swelling discoloration. She denies history of VTE. She is on no anticoagulant or antithrombotic. Patient had intentional weight loss. Patient denies night sweats. Prior similar symptoms: No Recent Illness/Hospitalization: No PFSH PFSH Medical History Wears glasses Arthritis Shortness of breath on exertion Leg cramps Change in bowel habit Generalized abdominal pain Heart murmur Dyspnea on exertion Post-menopausal High cholesterol Back pain Syncope Gastric reflux Smoker BiPAP (biphasic positive airway pressure) dependence Asthma History of echocardiogram History of stress test Cardiology follow-up encounter Hyperlipidemia Skin cancer Anxiety and depression Home Medications ?Medication ?Instructions ?Recorded ?Last Taken ?Type albuterol sulfate 90 mcg/actuation 2 puff inhalation Q 6H PRN 04/15/23 Unknown History aerosol inhaler shortness of breath or wheez ing bupropion HCl 150 mg tablet,12 hr 150 mg PO BID Unknown History sustained-release (Wellbutrin SR) escitalopram oxalate 10 mg tablet 10 mg PO QHS 5 Unknown History (Lexapro) lactobacillus combination no.9 4 4,000 mmu cells PO QD AY 06/23/24 Unknown History billion cell capsule (Adult 50 Plus Probiotic) multivitamin (Daily Multi-Vitamin 1 tab PO DAILY 07/06 Unknown History tablet) cholecalciferol (vitamin D3) 125 125 mcg PO QDAY 07/20 Unknown History mcg (5,000 unit) capsule pantoprazole 20 mg tablet,delayed 20 mg PO QDAY Unknown History release (Protonix) Oral appliance #1 ea 08/16/24 Unknown Rx escitalopram oxalate 20 mg tablet 20 mg PO QDAY Unknown History (Lexapro) rosuvastatin 20 mg tablet 20 mg PO DAILY 10/06/24 Unkn own History Allergy/AdvReac Type Severity Reaction Status Date / Time Penicillins Allergy Intermediate Hives Verified 11/03/24 13:18 Family History Mother Breast cancer Hypertension Aunt Breast cancer Brother Hypertension Father Atrial fibrillation Surgical History History of esophagogastroduodenoscopy (EGD) Hx of colonoscopy Cyst Removal from breast History of LAVH Hx of appendectomy Social History Smoking Status: Current every day smoker tobacco type: cigarettes alcohol intake: never substance use type: does not use caffeine: Yes what type of physical activity do you participate in: walking frequency: 3-4 times per week seatbelt use: always do you feel safe at home: Yes additional social history: , Just moved back from the [facility] ROS ROS ED Constitutional Constitutional ED: Reports weight loss; Denies chills, fever(s), subjective or sweats Eyes Eyes: Denies blurry vision or change in vision ENT ENT ED: Denies ear pain, rhinorrhea or sore throat Cardiovascular Cardiovascular: Reports chest pain; Denies palpitations or racing heartbeat Respiratory/Chest Respiratory/Chest: Reports cough, dyspnea and other Details: Hemoptysis Gastrointestinal Gastrointestinal: Denies abdominal pain, nausea or vomiting Genitourinary Genitourinary ED: Denies hematuria Musculoskeletal Musculoskeletal: Denies arthralgias, back pain or myalgias Integumentary Denies rash Neurologic Neurologic: Denies paresthesias or weakness Hematologic/Lymphatic Hematologic/Lymphatic: Reports systems reviewed and no addt'l complaints, exceptas documented; Denies easy bleeding or easy bruising EXAM Physical Exam Const Vital Signs: 11/03/24 13:18 11/03/24 13:22 11/03/24 13:23 Temperature 97.9 F 97.9 F Temperature Source Oral Oral Pulse Rate 61 67 Respiratory Rate 12 14 Respiratory Effort Normal Respiratory Depth Normal Respiratory Pattern Normal Blood Pressure 128/69 H 128/69 H Blood Pressure Mean 88 88 Pulse Ox 96 94 Oxygen Delivery Method Nasal Cannula Room Air Room Air Oxygen Flow Rate (L/min) 2 11/03/24 14:29 11/03/24 14:32 Temperature 98.6 F Temperature Source Oral Pulse Rate 63 63 Respiratory Rate 12 12 Respiratory Effort Respiratory Depth Respiratory Pattern Blood Pressure 133/68 H 133/68 H Blood Pressure Mean 89 89 Pulse Ox 93 94 Oxygen Delivery Method Nasal Cannula Nasal Cannula Oxygen Flow Rate (L/min) 2 2 Positive well nourished and well developed Constitutional Narrative: On oxygen patient appears in no distress. Patient blood pressure slightly elevated. General Appearance ED: well developed and NAD; Negative for cyanotic, diaphoretic or pallor HEENT Reports moist mucous membranes HEENT Narrative: Head is atraumatic normocephalic. Ears normal. Nares patent. Eyes PERRL and EOMs intact bilaterally General Eye ED: Negative for pale conjunctiva or scleral icterus Neck no lymphadenopathy, supple and no JVD Chest Wall inspection of chest normal and palpation of chest normal Resp normal respiratory effort and No clear to auscultation bilaterally Auscultation: rales bilateral lower Cardio regular rate, regular rhythm, S1 normal heart sound, S2 normal heart sound and no murmurs GI normal to inspection, nondistended, normoactive bowel sounds, non-tender, non-distended and no masses; Negative for hepatosplenomegaly Palpation: soft Back/Spine no CVA tenderness Extremity normal to inspection Extremity Narrative: There is no asymmetry, swelling, discoloration, leg vein distention, palpable cords or tenderness along the distribution of the deep venous system. General Extremety ED: Negative for edema or tenderness General Extremity: Negative for edema Neuro oriented x3 and CN's II-XII intact bilaterally Sensorium / Orientation: alert Psych mental status grossly normal Skin no rashes or lesions noted, no wounds and skin turgor normal General Skin Exam: Negative for jaundice or pallor MDM MDM MDM Narrative Medical decision making narrative: With suspicious lesion hypoxia hemoptysis need to evaluate for pulmonary embolus. Since she had a post procedure chest x-ray does not show pneumothorax will obtain a CTA. Blood work was obtained to assess for H&H, white count differential, renal function. Lab Data Attestation: I reviewed the patient's lab results. Lab results narrative: White count is slightly elevated 12.6 with minimal shift. H&H is Blane 0.6 and 35.2. H&H essentially unchanged from earlier today. Patient had no recent electrolyte panel or BMP. Results pending. A troponin and BNP was added after discussion with hospitalist. Labs: Laboratory Results - last 24 hr 11/03/24 14:00 WBC 12.6 H RBC 4.08 L Hgb 11.6 L Hct 35.2 L MCV 86.3 MCH 28.4 MCHC 33.0 RDW Std Deviation 43.3 RDW Coeff of Millie 13.7 Plt Count 282 MPV 10.5 Immature Gran % (Auto) 0.400 Neut % (Auto) 70.2 H Lymph % (Auto) 16.3 L Wagoner % (Auto) 8.6 Eos % (Auto) 3.7 Baso % (Auto) 0.8 Absolute Neuts (auto) 8.8 H Absolute Lymphs (auto) 2.05 Nucleated RBC % 0 Radiography Diagnostic Testing: CT reveals multiple pulmonary emboli bilaterally. There is no obvious cor pulmonale. Will add BNP and troponin. Since patient had recent biopsy we will anticoag with heparin especially with her hemoptysis in case he gets worse. Management Discussion w/another healthcare provider: Hospitalist (Spoke with hospitalist Dr. Maritza Modi. Admit PCU. Discussed apixaban versus heparin. In light of patient's history of recent procedure hemoptysis requested heparin. Bolus and drip was started in the emergency department.) and Other (Spoke to radiologist regarding need for CT without contrast versus CTA. After discussion with radiologist determine CTA would give us all the information and rule out PE if negative.) Discharge Plan Triage Chief Complaint: Shortness of Breath ED Provider: Italo Guerrero Dx/Rx/DC Orders Clinical Impression: Bilateral pulmonary embolism, Hyperlipidemia, MARYANN (obstructive sleep apnea), Smoking greater than 20 pack years, Lung nodule, Hypoxia, Hemoptysis, Pleural effusion, left Prescriptions: No Action bupropion HCl [Wellbutrin SR] 150 mg tablet sustained-release 12 hr 150 mg PO BID escitalopram oxalate [Lexapro] 10 mg tablet 10 mg PO QHS albuterol sulfate 90 mcg/actuation HFA aerosol inhaler 2 puff inhalation Q6H PRN (Reason: shortness of breath or wheezing) cholecalciferol (vitamin D3) 125 mcg (5,000 unit) capsule 125 mcg PO QDAY Adult 50 Plus Probiotic 4 billion cell capsule 4,000 mmu cells PO QDAY Rx Instructions: administer with a meal pantoprazole [Protonix] 20 mg tablet,delayed release (DR/EC) 20 mg PO QDAY escitalopram oxalate [Lexapro] 20 mg tablet 20 mg PO QDAY rosuvastatin 20 mg tablet 20 mg PO DAILY multivitamin [Daily Multi-Vitamin] Tablet 1 tab PO DAILY (DME) Oral appliance See Rx Instructions .ROUTE .MEDSULY Qty: 1 0RF Rx Instructions: As directed Primary Care Provider: Marsah Mendez Referrals: Marsha Mendez, LICENSE CLERK-Manohar [Primary Care Provider] - Print Language: Bulgarian Disposition Disposition: Acute Care Hospital [facility] What to do if you have Problems For any increased pain, shortness of breath, bleeding, nausea or vomiting, chestpain, or any unexpected problems, contact your Primary Care Provider. Call [facility] ([phone]) or report to the closest Emergency Room. Call 911 if necessary. 11/03/24 1448 <Electronically signed by Italo Guerrero MD> Cosigner Signature (if applicable): CC: SLOAN LICENSE CLERK-Manohar Mendez ~ Signed [facility] Work Phone: [phone]) 591-934207-09-2025 Radiology Diagnostic study note [facility] Imaging Services [address] [place] [address] [id number] Chest without Contrast MR#: [id number] Acct: [id number] Name: MARY AGUILERA Rep #: [id number] : 1960 F 64 From: Lucie Verduzco MD PCP: SLOAN Vaca, LICENSE CLERKJyotiC Status: REG CLI Study:Chest without Contrast Date of Exam: 09/27/24 Exam# [id number] Ordering Dr: Manohar Pickering NP LICENSE CLERK-Manohar PROCEDURE: CHEST WITHOUT CONTRAST 09/27/2024 REASON FOR EXAM: 8 MM NODULE IN SMOKER TECHNIQUE: Chest CT without contrast. Coronal and Sagittal reconstruction series were provided. One or more dose reduction techniques were used (e.g., Automated exposure control, adjustment of the mA and/or kV according to patient size, use of iterative reconstruction technique RADIATION DOSE SUMMARY: CTDlvol: 7.37 mGy DLP: 243.23 mGycm COMPARISON: 06/20/2024. FINDINGS: Normal unenhanced main pulmonary artery and right and left pulmonary arteries. Normal bilateral peripheral pulmonary arteries. Normal thoracic aorta and visualized great vessels. There is no demonstrated aortic aneurysm. Normal heart and pericardium. The coronary arteries are not calcified. Multiple prominent mediastinal lymph nodes are now seen. There is fullness of the left hilum however evaluation for lymphadenopathy is not possible in view of the absence of contrast administration. Normal visualized trachea and bronchi. The lungs are well expanded. There has been interval increase in the size of the previously described left lower lobe spiculatednodule now measuring 2.0 x 1.6 cm in axial dimension ( previous measurement 1.1 x 1.4 cm). Linear atelectasis is seen in the right lower lobe. Normal pleura. Normal chest wall structures. Normal osseous structures. Prominent xiphoid process of the sternum is noted which bulges anteriorly. Normal visualized upper abdomen. CT/Chest without Contrast IMPRESSION: Interval increase in the size of the left lower lobe nodule with newly seen mediastinal lymph adenopathy. Assessment for left hilar lymphadenopathy is not possible in view of the absence of contrast administration. A PET/CT scan is recommended. Reading Location: [place] [address] CC: IRWIN Pickering; [facility] IRWIN Mendez ~ Pellet Post Inspector: Signed [facility]04-21-2025 Procedure note [facility] Medical Records Department [address] [place] [address] Operative Report - CC Letter MR#: [id number] Acct: [id number] Name: MARY AGUILERA Rep #:[id number] : 1960 63 From: Blanco Forman PCP: SLOAN Vaca NP-C Statu s[place] [facility] [place] Irwin Gomes Re : Colonoscopy procedure for Mary Aguilera Per Mendez This procedure was performed on Thursday, July 11, 2024. My impressions and recommendations are as follows: Impressions : - One 15 mm, non-bleeding polyp in the ascending colon, removed with a hot snare. Resected and retrieved. - One 5 mm, non-bleeding polyp in the proximal transverse colon, removed with a hot snare. Resected and retrieved. - Four 3 to 4 mm, non-bleeding polyps in the rectum. Biopsied. - The entire examined colon is normal on direct and retroflexion views. Recommendations : - Discharge patient to home (via wheelchair). - Resume previous diet today. - No aspirin, ibuprofen, naproxen, or other non-steroidal anti-inflammatory drugs for 2 days after biopsy. - Await pathology results. - Repeat colonoscopy date to be determined after pending pathology results are reviewed for surveillance based on pathology results. - Telephone my office for pathology results in 1 week. My findings are described in the full procedure note, which is enclosed. If I can be of further assistance, please feel free to contact me at Doctor phone number(s): , Work: . Sincerely, Blanco Ayala MD 07/11/2024 12:41:10 PM This report has been signed electronically. 07/11/24 1241 Date _ Blanco Ayala MD Cosigner Signature: Date (if indicated) CC: SLOAN LICENSE CLERK-C Marsha Mendez; Dr. Blanco Ayala MD ~ Date Dictated: 07/11/24 1046 Date Transcribed: Pellet Post Inspector: KRISTIN Signed [facility]04-21-2025 Procedure note [facility] Medical Records Department [address] [place] [address] Colonoscopy Report MR#: [id number] Acct: [id number] Name: MARY AGUILERA Rep #:[id number] : 1960 63 From: Blanco Forman PCP: SLOAN Vaca, LICENSE CLERK-C Statu s:REG [facility] Patient Name: Mary Aguilera Procedure Date: 07/11/2024 10:46 AM Date of : 1960 Age: 63 Procedure: Colonoscopy Indications: Generalized abdominal pain Providers: Blanco Ayala MD Referring MD: Blanco Ayala MD Medicines: See the Anesthesia note for documentation of the administered medications Patient Profile: Patient has symptoms of acute abdominal cramping, acute epigastric abdominal pain and acute nausea. Last Colonoscopy: 7years ago. Complications: No immediate complications. Estimated blood loss: Minimal. Procedure: Pre-Anesthesia Assessment: - The heart rate, respiratory rate, oxygen saturations, blood pressure, adequacy of pulmonary ventilation, and response to care were monitored throughout the procedure. - The heart rate, respiratory rate, oxygen saturations, blood pressure, adequacy of pulmonary ventilation, and response to care were monitored throughout the procedure. After I obtained informed consent, the scope was passed under direct vision. Throughout the procedure, the patient's blood pressure, pulse, and oxygen saturations were monitored continuously. The colonoscope was introduced through the anus and advanced to the cecum, identified by transillumination. The colonoscopy was somewhat difficult due to a tortuous colon. Successful completion of the procedure was aided by using scope torsion. The patient tolerated the procedure well. The quality of the bowel preparation was adequate to identify polyps greater than 5 mm in size. Scope In: 10:47:09 AM Scope Withdrawal Time 0 hours 28 minutes 33 seconds Scope Out: 11:29:00 AM Total Procedure Duration Time 0 hours 41 minutes 51 seconds Findings: A 15 mm, non-bleeding polyp was found in the ascending colon. The polyp was semi-sessile. The polyp was removed with a hot snare. Resection and retrieval were complete. Estimated blood loss was minimal. A 5 mm, non-bleeding polyp was found in the proximal transverse colon. The polyp was semi-sessile. The polyp was removed with a hot snare. Resection and retrieval were complete. Estimated blood loss: none. Four sessile, non-bleeding polyps were found in the rectum. The polyps were 3 to 4 mm in size. Biopsies were taken with a cold forceps for histology. Estimated blood loss was minimal. The entire examined colon appeared normal on direct and retroflexion views. Impression: - One 15 mm, non-bleeding polyp in the ascending colon, removed with a hot snare. Resected and retrieved. - One 5 mm, non-bleeding polyp in the proximal transverse colon, removed with a hot snare. Resected and retrieved. - Four 3 to 4 mm, non-bleeding polyps in the rectum. Biopsied. - The entire examined colon is normal on direct and retroflexion views. Recommendation: - Discharge patient to home (via wheelchair). - Resume previous diet today. - No aspirin, ibuprofen, naproxen, or other non-steroidal anti-inflammatory drugs for 2 days after biopsy. - Await pathology results. - Repeat colonoscopy date to be determined after pending pathology results are reviewed for surveillance based on pathology results. - Telephone my office for pathology results in 1 week. Procedure Code(s): --- Professional --- 44809, Colonoscopy, flexible; with removal of tumor(s), polyp(s), or other lesion(s) by snare technique 45504, 59, Colonoscopy, flexible; with biopsy, single or multiple Diagnosis Code(s): --- Professional --- D12.2, Benign neoplasm of ascending colon D12.3, Benign neoplasm of transverse colon (hepatic flexure or splenic flexure) D12.8, Benign neoplasm of rectum R10.84, Generalized abdominal pain CPT copyright 2021 [employer]. All rights reserved. The codes documented in this report are preliminary and upon data processing operator review may be revised to meet current compliance requirements. Blanco Ayala MD 07/11/2024 12:41:10 PM This report has been signed electronically. Number of Addenda: 0 Note Initiated On: 07/11/2024 10:46 AM 07/11/24 1241 Date _ Blanco Ayala MD Cosigner Signature: Date (if indicated) CC: SLOAN Mendez; Dr. Blanco Ayala MD ~ Date Dictated: 07/11/24 1046 Date Transcribed: Pellet Post Inspector: KRISTIN Signed [facility]04-21-2025 Consult note [facility] Medical Records Department [address] [facility] [place] [address] Anesthesia Postop Eval II 07/11/24 1235 MR#: [id number] Acct: [id number] Name: MARY AGUILERA Rep #:[id number] : 1960 63 From: Kane Zeng MD PCP: SLOAN Vaca, LICENSE CLERK-C Statu s:[facility] Y Race: C Location: [place] [address] Anesthesia Postop Eval I Sum Postop Eval Completion status Anesthesia document: Postop Eval 1 completed: Yes Anesthesia Postop Eval I Summary Anesthesia Postop Eval I Summary: Anesthesia Postop Eval I: Assessment Summary Airway patent Yes 07/11/24 11:41 [email or web address] Spontaneous unlabored Yes 07/11/24 11:41 [email or web address] respirations Mental status Awake 07/11/24 11:41 [email or web address] nausea No 07/11/24 11:41 [email or web address] Vomiting No 07/11/24 11:41 [email or web address] Anesthesia Postop Eval I: Fluid Summary Crystalloid volume administer 120 07/11/24 11:41 [email or web address] (ml) Colloids volume administered ( ml) Blood Product volume administered (ml) Total IV fluid infused 120 07/11/24 11:41 [email or web address] Anesthesia Postop Eval I: Summary Notes Anesthesia Complication No 07/11/24 11:41 [email or web address] Anesthesia Complication Comment: Post-operative progress note Anesthesia: Postop Eval II Evaluation Mental status: Awake Pain Level: 0 nausea: No Vomiting: No 07/11/24 1235 > Date _ Kane Solis Signature: Date CC: ~ Signed [facility]04-21-2025 History and physical note Author Blanco Ayala [facility] Note Date/Time July 11, 2024 10: 10am [facility] Medical Records Department [address] [place] [address] History & Physical Exam 07/11/24 1006 MR#: [id number] Acct: [id number] Name: MARY AGUILERA Rep #:[id number] : 1960 63 From: Blanco Forman PCP: SLOAN Vaca, LICENSE CLERK-C Statu s[place] [facility] [place] [address] History and Physical Patient is 63-year-old female referred from Dr. Ag[facility]. She complains of abdominal discomfort that began February 2024. She states that initially she would characterize this as a crampy abdominal pain of her upper abdomen but this is now become just more of a queasy feeling. She notes that it is worse with activity or with an empty stomach. She has previously been evaluated with an EGD in the last couple of years by Dr. Pyle but is uncertain of the results of the study. Additionally, she hopes to complete a update screening colonoscopy after her last scope in 2018 revealed some evidence of diverticulosis. She denies any bright red blood per rectum or concerns from her lower GI tract. Lastly she confirms there are no significant GI diagnoses from her family history. Assessment & Plan Assessment/Plan (1) Abdominal discomfort, epigastric: (2) GERD (gastroesophageal reflux disease): (3) Diverticulosis: PLAN: Plan Patient is 63-year-old female with rather nonspecific upper abdominal pain and queasiness who presents for repeat EGD as well as repeat screening colonoscopy. Her abdominal exam is benign today. She completed prep for today's procedure and output is slightly brown so she will undergo an enema anticipation of the procedure. Otherwise we will plan to proceed to the endoscopy suite for upper and lower endoscopy as planned. Patient is informed that if biopsies are completed during today's procedure she is asked to refrain from any use of ibuprofen or aspirin products for the next 2 days. She states she has already taken this step on direction from her PCP given her abdominal complaints. Blanco Ayala MD General Surgery Endocrine Surgery Pager: [facility] [address] [place] [address], [facility], [address] [place] [address] Office: [phone] 07/11/24 1010 <Electronically signed by Blanco Ayala MD> Cosigner Signature (if applicable): CC: [facility] IRWIN Mendez; Dr. Blanco Ayala MD~ Signed [facility] Work Phone: 1(279) 439-469604-21-2025 Procedure note [facility] Medical Records Department [address] [place] [address] EGD Report MR#: [id number] Acct: [id number] Name: MARY AGUILERA Rep #:[id number] : 1960 63 From: Blanco Forman PCP: Marsha Mendez, [facility], LICENSE CLERK-C Statu s[place] [place] Name: Mary Aguilera Procedure Date: 07/11/2024 10:18 AM Date of : 1960 Age: 63 Procedure: Upper GI endoscopy Indications: Epigastric abdominal pain, Abdominal bloating, Nausea Providers: Blanco Ayala MD Referring MD: Blanco Ayala MD Medicines: See the Anesthesia note for documentation of the administered medications Patient Profile: Patient has symptoms of acute abdominal cramping, acute epigastric abdominal pain and acute nausea. Complications: No immediate complications. Estimated blood loss: Minimal. Procedure: Pre-Anesthesia Assessment: - The heart rate, respiratory rate, oxygen saturations, blood pressure, adequacy of pulmonary ventilation, and response to care were monitored throughout the procedure. After obtaining informed consent, the endoscope was passed under direct vision. Throughout the procedure, the patient's blood pressure, pulse, and oxygen saturations were monitored continuously. The Endoscope was introduced through the mouth, and advanced to the second part of duodenum. The upper GI endoscopy was accomplished without difficulty. The patient tolerated the procedure well. Scope In: 10:30:15 AM Scope Out: 10:44:23 AM Total Procedure Duration Time 0 hours 14 minutes 8 seconds Findings: Localized nodular mucosa was found in the duodenal bulb. Biopsies were taken with a cold forceps for histology. Estimated blood loss was minimal. Localized mildly erythematous mucosa without bleeding was found in the gastric antrum. Biopsies were taken with a cold forceps for histology. Estimated blood loss was minimal. Localized mildly erythematous mucosa without bleeding was found in the gastric body. Estimated blood loss was minimal. One 3 mm semi-sessile polyp with no bleeding and no stigmata of recent bleeding was found in the gastric body. Biopsies were taken with a cold forceps for histology. Estimated blood loss was minimal. The Z-line was regular and was found 38 cm from the incisors. No biopsies or other specimens were collected for this exam. A single 3 mm plaque was found in the middle third of the esophagus. Biopsies were taken with a cold forceps for histology. Estimated blood loss was minimal. Impression: - Nodular mucosa in the duodenal bulb. Biopsied. - Erythematous mucosa in the antrum. Biopsied. - Erythematous mucosa in the gastric body. - One gastric polyp. Biopsied. - Z-line regular, 38 cm from the incisors. No specimens collected. - A single plaque in the middle third of the esophagus. Biopsied. Recommendation: - Discharge patient to home (via wheelchair). - Soft diet today. - Continue present medications. - No aspirin, ibuprofen, naproxen, or other non-steroidal anti-inflammatory drugs for 2 days after biopsy. - Await pathology results. - Telephone my office for pathology results in 1 week. Procedure Code(s): --- Professional --- 43126, Esophagogastroduodenoscopy, flexible, transoral; with biopsy, single or multiple Diagnosis Code(s): --- Professional --- K31.89, Other diseases of stomach and duodenum K31.7, Polyp of stomach and duodenum K22.89, Other specified disease of esophagus R10.13, Epigastric pain R14.0, Abdominal distension (gaseous) R11.0, Nausea CPT copyright 2021 [employer]. All rights reserved. The codes documented in this report are preliminary and upon data processing operator review may be revised to meet current compliance requirements. Blanco Ayala MD 07/11/2024 11:41:59 AM This report has been signed electronically. Number of Addenda: 0 Note Initiated On: 07/11/2024 10:18 AM 07/11/24 1142 Date _ Blanco Ayala MD Cosigner Signature: Date (if indicated) CC: [facility] LICENSE CLERKAlonso Mendez; Dr. Blanco Ayala MD ~ Date Dictated: 07/11/24 1018 Date Transcribed: Pellet Post Inspector: KRISTIN Signed [facility]04-21-2025 Procedure note [facility] Medical Records Department [address] [place] [address] Operative Report - CC Letter MR#: [id number] Acct: [id number] Name: MARY AGUILERA Rep #:[id number] : 1960 63 From: Blanco Forman PCP: SLOAN Vaca, IRWIN [place] [place] Marsha Lisa, Irwin Re : Upper GI endoscopy procedure for Mary Aguilera Dear Liu This procedure was performed on Thursday, July 11, 2024. My impressions and recommendations are as follows: Impressions : - Nodular mucosa in the duodenal bulb. Biopsied. - Erythematous mucosa in the antrum. Biopsied. - Erythematous mucosa in the gastric body. - One gastric polyp. Biopsied. - Z-line regular, 38 cm from the incisors. No specimens collected. - A single plaque in the middle third of the esophagus. Biopsied. Recommendations : - Discharge patient to home (via wheelchair). - Soft diet today. - Continue present medications. - No aspirin, ibuprofen, naproxen, or other non-steroidal anti-inflammatory drugs for 2 days after biopsy. - Await pathology results. - Telephone my office for pathology results in 1 week. My findings are described in the full procedure note, which is enclosed. If I can be of further assistance, please feel free to contact me at Doctor phone number(s): , Work: . Sincerely, Blanco Ayala MD 07/11/2024 11:41:59 AM This report has been signed electronically. 07/11/24 1142 Date _ Blanco Ayala MD Cosigner Signature: Date (if indicated) CC: SLOAN Mendez; Dr. Blanco Ayala MD ~ Date Dictated: 07/11/24 1018 Date Transcribed: Pellet Post Inspector: KRISTIN Signed [facility]04-21-2025 Consult note [facility] Medical Records Department [address] [place] [address] Anesthesia Postop Eval I 07/11/24 1141 MR#: [id number] Acct: [id number] Name: MARY AGUILERA Alex Rep #:[id number] : 1960 63 From: Denys Merritt PCP: SLOAN Vaca, GREGORYC Statu s:[facility] Y Race: C Location: [place] [address] Anesthesia: Postop Eval I Current Vital Signs Temperature: 97 F Pulse Rate: 74 Blood Pressure: 100/60 Respiratory Rate: 16 Pulse Ox: 100 Oxygen Delivery Method: Room Air Assessment Airway patent: Yes Spontaneous unlabored respirations: Yes Mental status: Awake nausea: No Vomiting: No Anesthesia Complication: No Fluid Hydration Crystalloid volume administer (ml): 120 Total IV fluid infused: 120 Progress Note Anesthesia document: Postop Eval 1 completed: Yes 07/11/24 1141 > Date _ Denys Solis Signature: Date CC: ~ Signed [facility]04-21-2025 History and physical note [facility] Medical Records Department [address] [place] [address] History & Physical Exam 07/11/24 1006 MR#: [id number] Acct: [id number] Name: MARY AGUILERA Alex Rep #:[id number] : 1960 63 From: Blanco Forman PCP: SLOAN Vaca, IRWIN Statu s:[facility] Location: [place] [address] History and Physical Patient is 63-year-old female referred [facility]. She complains of abdominal discomfort that began February 2024. She states that initially she would characterizethis as a crampy abdominal pain of her upper abdomen but this is now become just more of a queasy feeling. She notes that it is worse with activity or with an empty stomach. She has previously been evaluated with an EGD in the last couple of years by Dr. Pyle but is uncertain of the results of the study. Additionally, she hopes to complete a update screening colonoscopy after her last scope in 2018 revealed some evidence of diverticulosis. She denies any bright red blood per rectum or concerns from her lower GI tract. Lastly she confirms there are no significant GI diagnoses from her family history. Assessment & Plan Assessment/Plan (1) Abdominal discomfort, epigastric: (2) GERD (gastroesophageal reflux disease): (3) Diverticulosis: PLAN: Plan Patient is 63-year-old female with rather nonspecific upper abdominal pain and queasiness who presents for repeat EGD as well as repeat screening colonoscopy. Her abdominal exam is benign today. She completed prep for today's procedure and output is slightly brown so she will undergo an enema anticipation of the procedure. Otherwise we will plan to proceed to the endoscopy suite for upper and lower endoscopy as planned. Patient is informed that if biopsies are completed during today's procedure she is asked to refrain from any use of ibuprofen or aspirin products for the next 2 days. She states she has already taken this step on direction from her PCP given her abdominal complaints. Blanco Ayala MD General Surgery Endocrine Surgery Pager: [facility] [address] [place] [address], [facility], [address] [place] [address] Office: [phone] 07/11/24 1010 Cosign Signature (if applicable): CC: SLOAN LICENSE CLERK-C Marsha Mendez; Dr. Blanco Ayala MD~ Signed [facility]04-21-2025 [facility] Medical Records Department [address] [place], [place] [address] History Physical Exam 07/11/24 1006 MR#: [id number] Acct: [id number] Name: MARY AGUILERA Rep #: [id number] : 1960 63 From: Blanco Ayala MD PCP: Marsha Mendez SLOAN, LICENSE CLERK-C [place] [place] [address] History and Physical Patient is 63-year-old female referred [facility]. She complains of abdominal discomfort that began February 2024. She states that initially she would characterize this as a crampy abdominal pain of her upper abdomen but this is now become just more of a queasy feeling. She notes that it is worse with activity or with an empty stomach. She has previously been evaluated with an EGD in the last couple of years by Dr. Pyle but is uncertain of the results of the study. Additionally, she hopes to complete a update screening colonoscopy after her last scope in 2018 revealed some evidence of diverticulosis. She denies any bright red blood per rectum or concerns from her lower GI tract. Lastly she confirms there are no significant GI diagnoses from her family history. Assessment Plan Assessment/Plan (1) Abdominal discomfort, epigastric: (2) GERD (gastroesophageal reflux disease): (3) Diverticulosis: PLAN: Plan Patient is 63-year-old female with rather nonspecific upper abdominal pain and queasiness who presents for repeat EGD as well as repeat screening colonoscopy. Her abdominal exam is benign today. She completed prep for today's procedure and output is slightly brown so she will undergo an enema anticipation of the procedure. Otherwise we will plan to proceed to the endoscopy suite for upper and lower endoscopy as planned. Patient is informed that if biopsies are completed during today's procedure she is asked to refrain from any use of ibuprofen or aspirin products for the next 2 days. She states she has already taken this step on direction from her PCP given her abdominal complaints. Blanco Aylaa MD General Surgery Endocrine Surgery Pager: [facility] [address] [place] [address], [facility] [place], [address] [place] [address] Office: [phone] 07/11/24 1010 Cosigner Signature (if applicable): CC: [facility] LICENSE CLERK-C Marsha Mendez; Dr. Blanco [facility]ala [facility] Consult note Author Kane Zeng [facility] Note Date/Time July 11, 2024 7:5 2am [facility] Medical Records Department [address] [place] [address] Pre-Anesthesia Evaluation 07/11/24 0751 MR#: [id number] Acct: [id number] Name: MARY AGUILERA Rep #:[id number] : 1960 63 From: Kane Zeng MD PCP: Marsha Mendez, [facility], LICENSE CLERK-C Statu s:[facility] Y Race: C Location: EN ASA Classification* ASA Classification ASA Classification: 2 Assessment & Plan Anesthesia* Anesthesia Assessment Anesthesia Assessment: Discussed sedation and/or anesthesia options, risks, benefits, and alternatives with patient/parents/legal guardian/POA. Questions invited. The patient/parents/legal guardian/POA seems to understand and agrees to proceedwith anesthesia plan. Reviewed the physical assessment, medical history, allergy history and patient home medications list prior to surgery/procedure/anesthetic and documented any changes. Performed airway and anesthesia risk assessments. Anesthesia Type Anesthesia Type: MAC Anesthesia Focused Assessment* Airway Assessment Mouth opens: >3 cm Mallampati Score: II Focused Labs Anesthesia Preop lab: CBC WBC 7.8 K/mm3 (4.4-11.0) 06/08/24 10:48 06/08/24 RBC 4.42 M/mm3 (4.2-5.4) 06/08/24 10:48 06/08/24 Hgb 13.1 g/dL (12.0-15.0) 06/08/24 10:48 06/08/24 Hct 39.8 % (37-47) 06/08/24 10:48 06/08/24 Plt Count 338 K/mm3 (150-450) 06/08/24 10:48 06/08/24 CHEMISTRY Potassium 4.0 mmol/L (3.3-5.1) 06/08/24 10:48 06/08/24 Sodium 138 mmol/L (133-145) 06/08/24 10:48 06/08/24 BUN 14 mg/dL (4-19) 06/08/24 10:48 06/08/24 Creatinine 1.06 mg/dL (0.70-1.20) 06/08/24 10:48 06/08/24 Glucose 101 mg/dL (70-99) H 06/08/24 10:48 06/08/24 TSH 0.80 uIU/mL (0.358-3.74) 07/06/23 08:21 COAG Pre-Assessment Diagnosis/Proposed Procedure Planned Operative Procedure(s): EGD/CSCOPE Anesthesia History 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 When Was Last Pacemaker Check QUESTION #4 FULL TEXT: You/Your Family Experience fever (hyperthermia) with Anesthesia Last Oral Intake Last Oral intake: Last Oral Intake NPO since Meds taken in AM with sips of water? Meds patient instructed to take am of surgery PONV PONV - central stores attendant: PONV - central stores attendant Female Yes 07/06/24 10:35 HX of Motion Sickness No 07/06/24 10:35 HX of N/V After Surgery No 07/06/24 10:35 Non-Smoker No 07/06/24 10:35 Duration of Surgery greater No 07/06/24 10:35 than 60 minutes Number of Risk Factors 1 07/06/24 10:35 PONV Score Low Risk 07/06/24 10:35 Height & Weight Height & Weight: Anesthesia: Height & Weight Height 5 ft 3 in 03/21/24 07:50 Respiratory Assessment Respiratory Assessment - central stores attendant: Respiratory Tract Infection Hx - central stores attendant Hx Respiratory Tract Infection No 07/06/24 10:35 STOP Sleep Apnea STOP Sleep Apnea - central stores attendant: STOP Sleep Apnea - central stores attendant Hx Hypertension No 07/06/24 10:35 Hx Sleep Apnea Yes 07/06/24 10:35 CPAP No 07/06/24 10:35 BIPAP Yes 07/06/24 10:35 Do you snore loudly (louder than talking or can be heard Do you often feel tired/ fatigued/ sleepy during daytime? Has anyone observed you stop breathing during sleep? STOP Results Positive 07/06/24 10:35 QUESTION #5 FULL TEXT : Do you snore loudly (louder than talking or can be heard through closed doors)? Tobacco Use History Tobacco Use History - central stores attendant: Tobacco Use History - central stores attendant Tobacco Use Smoking Status Current every day smoker 07/06/24 10:35 Hx Tobacco Use Yes 07/06/24 10:35 Years Smoking Packs Smoked per Day Smoking Cessation Date was within the last 15 years Hx Smoking Cessation Date Hx Smoking Cessation Counseling Hematologic Medial History Hematologic Hx - central stores attendant: Hematologic Medical Hx - documentation lead Hx of Blood Transfusion No 07/06/24 10:35 Hx of Transfusion in last 3 No 07/06/24 10:35 Months Date of Last Transfusion (if within last 3 months) Ever experience any problems No 07/06/24 10:35 with transfusion(s)? Specify any problems Hx of Preganancy in last 3 No 07/06/24 10:35 Months Nurse Filling Out Transfusion DSCHRIBER 07/06/24 10:35 & Questions: Date: 07/06/24 07/06/24 10:35 Time: 10:36 07/06/24 10:35 Patient unable to answer at this time (ie. confused, unrespo /Reproduction History /Reproductive History - central stores attendant: /Reproductive Hx- central stores attendant Hx Now No 07/06/24 10:35 Gestational Age (in weeks): EDC: Hx Hx Para Hx Section SAB No 07/06/24 10:35 PFSH Medical History Wears glasses Arthritis Shortness of breath on exertion Leg cramps Change in bowel habit Generalized abdominal pain Heart murmur Dyspnea on exertion Post-menopausal High cholesterol Back pain Syncope Gastric reflux Smoker BiPAP (biphasic positive airway pressure) dependence Asthma History of echocardiogram History of stress test Cardiology follow-up encounter Hyperlipidemia Skin cancer Anxiety and depression Home Medications ?Medication ?Instructions ?Recorded ?Last Taken ?Type rosuvastatin 20 mg tablet 20 mg PO QHS 01/09/22 Unknow n History famotidine 20 mg tablet (Pepcid) 20 mg PO DAILY Unknown History albuterol sulfate 90 mcg/actuation 2 puff inhalation Q 6H PRN 01/24/24 Unknown History aerosol inhaler shortness of breath or wheez ing escitalopram oxalate 20 mg tablet 20 mg PO QDAY Unknown History bupropion HCl 150 mg tablet,12 hr 150 mg PO BID Unknown History sustained-release (Wellbutrin SR) escitalopram oxalate 10 mg tablet 10 mg PO QHS 5 Unknown History (Lexapro) hydrocortisone 2.5 % topical 1 applic topical BID-TID PRN 06/23/24 Unknown History ointment itching lactobacillus combination no.9 4 4,000 mmu cells PO QD AY 06/23/24 Unknown History billion cell capsule (Adult 50 Plus Probiotic) multivitamin (Daily Multi-Vitamin 1 tab PO DAILY 07/06 Unknown History tablet) Allergy/AdvReac Type Severity Reaction Status Date / Time penicillin G Allergy Mild Swelling Verified 07/06/24 10:32 Family History Mother Breast cancer Hypertension Aunt Breast cancer Brother Hypertension Father Atrial fibrillation Surgical History History of esophagogastroduodenoscopy (EGD) Hx of colonoscopy Cyst Removal from breast History of [facility] Hx of appendectomy Social History Smoking Status: Current every day smoker tobacco type: cigarettes alcohol intake: never substance use type: does not use caffeine: Yes what type of physical activity do you participate in: walking frequency: 3-4 times per week seatbelt use: always do you feel safe at home: Yes additional social history: , Just moved back from the [facility] Review of Systems (Anesthesia) ROS Narrative System reviewed and no additional complaints, except as documented. 07/11/24 0752 <Electronically signed by Kane Zeng MD > Date _ Kane Zeng MD Cosigner Signature: Date CC: ~ Signed [facility] Work Phone: 1(173) 692-399104-21-2025 Evaluation note* Diagnosis Onset Date Resolution Status Admit Date Abdominal discomfort, epigastric acu te July 11, 2024 7:31am Diverticulosis acute June 7:31am GERD (gastroesophageal reflu x disease) acute July 11, 2024 7:31am Lung nodule chronic July 20, 025 1:06pm MARYANN (obstructive sleep apnea) chroni c July 20, 2024 1:06pm Smoking greater than 20 pack years chronic July 20, 2024 1:06pm Dyspnea on exertion acute July 262024 11:17am Heart murmur acute July 26 11:17am Hyperlipidemia chronic July 26 025 11:17am MARYANN (obstructive sleep apnea) chroni c July 26, 2024 11:17am Smoking greater than 20 pack years chronic July 26, 2024 11 :17am [facility] Work Phone: 1(300) 821-982504-21-2025 Evaluation note* Diagnosis Onset Date Resolution Status Admit Date Abdominal discomfort, epigastric acu te July 11, 2024 7:31am Diverticulosis acute June 7:31am GERD (gastroesophageal reflu x disease) acute July 11, 2024 7:31am Lung nodule chronic July 20, 025 1:06pm MARYANN (obstructive sleep apnea) chroni c July 20, 2024 1:06pm Smoking greater than 20 pack years chronic July 20, 2024 1:06pm Dyspnea on exertion acute July 262024 11:17am Heart murmur acute July 26 11:17am Hyperlipidemia chronic July 26 025 11:17am MARYANN (obstructive sleep apnea) chroni c July 26, 2024 11:17am Smoking greater than 20 pack years chronic July 26, 2024 11 :17am Lung nodule chronic October 06 1:05pm MARYANN (obstructive sleep apnea) chroni c October 06, 2024 1:05pm Smoking greater than 20 pack years chronic October 06, 2024 1:05pm [facility] Work Phone: 1(389) 313-718604-21-2025 Evaluation note* Diagnosis Onset Date Resolution Status Admit Date Abdominal discomfort, epigastric acu te July 11, 2024 7:31am Diverticulosis acute June 7:31am GERD (gastroesophageal reflu x disease) acute July 11, 2024 7:31am Lung nodule chronic July 20, 2 025 1:06pm MARYANN (obstructive sleep apnea) chroni c July 20, 2024 1:06pm Smoking greater than 20 pack years chronic July 20, 2024 1:06pm Dyspnea on exertion acute July 262024 11:17am Heart murmur acute July 26 11:17am Hyperlipidemia chronic July 26, 2 025 11:17am MARYANN (obstructive sleep apnea) chroni c July 26, 2024 11:17am Smoking greater than 20 pack years chronic July 26, 2024 11 :17am Lung nodule chronic October 06 1:05pm MARYANN (obstructive sleep apnea) chroni c October 06, 2024 1:05pm Smoking greater than 20 pack years chronic October 06, 2024 1:05pm Acute pulmonary embolism wit h acute cor pulmonale acute November 03, 2024 4:33pm Bilateral pulmonary embolism acute November 03, 2024 4:33pm Hemoptysis acute November 03, 2 025 4:33pm Hypoxia acute November 03, 2 025 4:33pm Pleural effusion, left acute Au 2024 4:33pm Pulmonary embolism and infarction acute November 03 4:33pm Hyperlipidemia chronic October 4:33pm Lung nodule chronic November 03, 2024 4:33pm MARYANN (obstructive sleep apnea) chroni c November 03, 2024 4:33pm Smoking greater than 20 pack years chronic November 03 4:33pm [facility] Work Phone: 1(135) 317-402604-21-2025 Consult note [facility] Medical Records Department [address] [place] [address] Pre-Anesthesia Evaluation 07/11/24 0751 MR#: [id number] Acct: [id number] Name: MARY AGUILERA Rep #:[id number] : 1960 63 From: Kane Zeng MD PCP: Marsha Mendez, [facility], LICENSE CLERK-C Statu s:[facility] Y Race: C Location: EN ASA Classification* ASA Classification ASA Classification: 2 Assessment & Plan Anesthesia* Anesthesia Assessment Anesthesia Assessment: Discussed sedation and/or anesthesia options, risks, benefits, and alternatives with patient/parents/legal guardian/POA. Questions invited. The patient/parents/legal guardian/POA seems to understand and agrees to proceedwith anesthesia plan. Reviewed the physical assessment, medical history, allergy history and patient home medications list prior to surgery/procedure/anesthetic and documented any changes. Performed airway and anesthesia risk assessments. Anesthesia Type Anesthesia Type: MAC Anesthesia Focused Assessment* Airway Assessment Mouth opens: >3 cm Mallampati Score: II Focused Labs Anesthesia Preop lab: CBC WBC 7.8 K/mm3 (4.4-11.0) 06/08/24 10:48 06/08/24 RBC 4.42 M/mm3 (4.2-5.4) 06/08/24 10:48 06/08/24 Hgb 13.1 g/dL (12.0-15.0) 06/08/24 10:48 06/08/24 Hct 39.8 % (37-47) 06/08/24 10:48 06/08/24 Plt Count 338 K/mm3 (150-450) 06/08/24 10:48 06/08/24 CHEMISTRY Potassium 4.0 mmol/L (3.3-5.1) 06/08/24 10:48 06/08/24 Sodium 138 mmol/L (133-145) 06/08/24 10:48 06/08/24 BUN 14 mg/dL (4-19) 06/08/24 10:48 06/08/24 Creatinine 1.06 mg/dL (0.70-1.20) 06/08/24 10:48 06/08/24 Glucose 101 mg/dL (70-99) H 06/08/24 10:48 06/08/24 TSH 0.80 uIU/mL (0.358-3.74) 07/06/23 08:21 COAG Pre-Assessment Diagnosis/Proposed Procedure Planned Operative Procedure(s): EGD/CSCOPE Anesthesia History 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 When Was Last Pacemaker Check QUESTION #4 FULL TEXT: You/Your Family Experience fever (hyperthermia) with Anesthesia Last Oral Intake Last Oral intake: Last Oral Intake NPO since Meds taken in AM with sips of water? Meds patient instructed to take am of surgery PONV PONV - central stores attendant: PONV - central stores attendant Female Yes 07/06/24 10:35 HX of Motion Sickness No 07/06/24 10:35 HX of N/V After Surgery No 07/06/24 10:35 Non-Smoker No 07/06/24 10:35 Duration of Surgery greater No 07/06/24 10:35 than 60 minutes Number of Risk Factors 1 07/06/24 10:35 PONV Score Low Risk 07/06/24 10:35 Height & Weight Height & Weight: Anesthesia: Height & Weight Height 5 ft 3 in 03/21/24 07:50 Respiratory Assessment Respiratory Assessment - central stores attendant: Respiratory Tract Infection Hx - central stores attendant Hx Respiratory Tract Infection No 07/06/24 10:35 STOP Sleep Apnea STOP Sleep Apnea - central stores attendant: STOP Sleep Apnea - central stores attendant Hx Hypertension No 07/06/24 10:35 Hx Sleep Apnea Yes 07/06/24 10:35 CPAP No 07/06/24 10:35 BIPAP Yes 07/06/24 10:35 Do you snore loudly (louder than talking or can be heard Do you often feel tired/ fatigued/ sleepy during daytime? Has anyone observed you stop breathing during sleep? STOP Results Positive 07/06/24 10:35 QUESTION #5 FULL TEXT : Do you snore loudly (louder than talking or can be heard through closeddoors)? Tobacco Use History Tobacco Use History - central stores attendant: Tobacco Use History - central stores attendant Tobacco Use Smoking Status Current every day smoker 07/06/24 10:35 Hx Tobacco Use Yes 07/06/24 10:35 Years Smoking Packs Smoked per Day Smoking Cessation Date was within the last 15 years Hx Smoking Cessation Date Hx Smoking Cessation Counseling Hematologic Medial History Hematologic Hx - central stores attendant: Hematologic Medical Hx - documentation lead Hx of Blood Transfusion No 07/06/24 10:35 Hx of Transfusion in last 3 No 07/06/24 10:35 Months Date of Last Transfusion (if within last 3 months) Ever experience any problems No 07/06/24 10:35 with transfusion(s)? Specify any problems Hx of Preganancy in last 3 No 07/06/24 10:35 Months Nurse Filling Out Transfusion DSCHRIBER 07/06/24 10:35 & Questions: Date: 07/06/24 07/06/24 10:35 Time: 10:36 07/06/24 10:35 Patient unable to answer at this time (ie. confused, unrespo /Reproduction History /Reproductive History - central stores attendant: /Reproductive Hx- central stores attendant Hx Now No 07/06/24 10:35 Gestational Age (in weeks): EDC: Hx Hx Para Hx Section SAB No 07/06/24 10:35 PFSH Medical History Wears glasses Arthritis Shortness of breath on exertion Leg cramps Change in bowel habit Generalized abdominal pain Heart murmur Dyspnea on exertion Post-menopausal High cholesterol Back pain Syncope Gastric reflux Smoker BiPAP (biphasic positive airway pressure) dependence Asthma History of echocardiogram History of stress test Cardiology follow-up encounter Hyperlipidemia Skin cancer Anxiety and depression Home Medications ?Medication ?Instructions ?Recorded ?Last Taken ?Type rosuvastatin 20 mg tablet 20 mg PO QHS 01/09/22 Unknow n History famotidine 20 mg tablet (Pepcid) 20 mg PO DAILY Unknown History albuterol sulfate 90 mcg/actuation 2 puff inhalation Q 6H PRN 04/15/23 Unknown History aerosol inhaler shortness of breath or wheez ing escitalopram oxalate 20 mg tablet 20 mg PO QDAY Unknown History bupropion HCl 150 mg tablet,12 hr 150 mg PO BID Unknown History sustained-release (Wellbutrin SR) escitalopram oxalate 10 mg tablet 10 mg PO QHS 5 Unknown History (Lexapro) hydrocortisone 2.5 % topical 1 applic topical BID-TID PRN 06/23/24 Unknown History ointment itching lactobacillus combination no.9 4 4,000 mmu cells PO QD AY 06/23/24 Unknown History billion cell capsule (Adult 50 Plus Probiotic) multivitamin (Daily Multi-Vitamin 1 tab PO DAILY 07/06 Unknown History tablet) Allergy/AdvReac Type Severity Reaction Status Date / Time penicillin G Allergy Mild Swelling Verified 07/06/24 10:32 Family History Mother Breast cancer Hypertension Aunt Breast cancer Brother Hypertension Father Atrial fibrillation Surgical History History of esophagogastroduodenoscopy (EGD) Hx of colonoscopy Cyst Removal from breast History of LAVH Hx of appendectomy Social History Smoking Status: Current every day smoker tobacco type: cigarettes alcohol intake: never substance use type: does not use caffeine: Yes what type of physical activity do you participate in: walking frequency: 3-4 times per week seatbelt use: always do you feel safe at home: Yes additional social history: , Just moved back from the [facility] Review of Systems (Anesthesia) ROS Narrative System reviewed and no additional complaints, except as documented. 07/11/24 0752 > Date _ Kane Zeng MD Cosigner Signature: Date CC: ~ Signed [facility]04-01-2025 Radiology Diagnostic study note [facility] Imaging Services [address] [place] [address] Chest without Contrast MR#: [id number] Acct: [id number] Name: MARY AGUILERA Rep #: [id number] : 1960 F 63 From: Manuela Lennon MD PCP: SLOAN Vaca, LICENSE CLERK-C Status: REG CLI Study:Chest without Contrast Date of Exam: 06/20/24 Exam# [id number] Ordering Dr: Manohar Pickering NP LICENSE CLERK-C EXAM: CT Chest Without Intravenous Contrast CLINICAL INDICATION: NEW 8 MM NNODULE IN SMOKER TECHNIQUE: Axial computed tomography images of the chest without intravenous contrast. This CT examwas performed using one or more of the following dose reduction techniques: automated exposure control, adjustment of the mA and/or kV according to patient size, and/or use of iterative reconstruction technique. COMPARISON: CT Chest dated 03/14/2024 FINDINGS: LUNGS AND PLEURAL SPACES: Lung emphysema/COPD. Stable 8 mm pulmonary nodule ofthe left lower lobe. Repeat CT in 3-6 months is recommended. Alternatively, this could be further evaluated with PET-CT or tissue biopsy. Right basilar atelectasis/scarring. No pneumothorax. No significant effusion. HEART: Unremarkable. No cardiomegaly. No significant pericardial effusion. No significant coronary artery calcifications. MEDIASTINUM: A few prominent mediastinal lymph nodes measuring up to 6 mm. BONES/JOINTS: Unremarkable. No acute fracture. No dislocation. SOFT TISSUES: Unremarkable. VASCULATURE: Unremarkable. No thoracic aortic aneurysm. LYMPH NODES: See above. CT/Chest without Contrast IMPRESSION: Stable 8 mm pulmonary nodule of the left lower lobe. Repeat CT in 3-6 months isrecommended. Alternatively, this could be further evaluated with PET-CT or tissue biopsy. Reading Location: [facility] CC: IRWIN Pickering; [facility] LICENSE CLERKAlonso Mendez ~ Pellet Post Inspector: Signed [facility]03-27-2025 Radiology Diagnostic study note [facility] Imaging Services [address] [place] [address] Abdomen Complete MR#: [id number] Acct: [id number] Name: MARY AGUILERA Rep #: [id number] : 1960 F 63 From: Jarred Urias MD PCP: SLOAN Vaca, LICENSE CLERK-C Status: REG CLI Study:Abdomen Complete Date of Exam: Exam# [id number] Ordering Dr: Marsha Mendez LICENSE CLERK-C PROCEDURE: ABDOMEN COMPLETE 06/16/2024 REASON FOR EXAM: GENERALIZED ABDOMINAL PAIN TECHNIQUE: Complete abdominal ultrasound tatum-scale images with color doppler. COMPARISON: None available FINDINGS: Liver: Measures 15.4 cm and appears within limits for echogenicity. No evidenceof mass or intrahepatic ductal dilation seen. Hepatic color flow is present with flow within the portal vein appearing hepatopetal as expected. Gallbladder: Gallbladder is nondistended without mobile stones, wall thickening or pericholecystic free fluid seen. 3 mm non-dependent nonmobile appearing echogenic focus may represent gallbladder polyp versus adherent tumefactive sludge. Report of a negative sonographic Sams's sign. Wall measures 1-2 mm. Common bile duct: 4-5 mm . Pancreas: Visualized portions appear within limits without ductal dilation identified Kidneys: The right kidney measures 9.2 x 3.8 x 4.1 cm with a cortical thickness of 1 cm. The left kidney measures 8.9 x 4.3 x 4.4 cm with a cortical thickness of 1 cm. No hydronephrosis, renal stone or perinephric edema identified. Spleen: Measures 7.9 x 3.7 x 3.3 cm appears within limits. Aorta: Proximal 2 cm, mid 1.7 cm, distal 1.4 cm, bifurcation appears within limits IVC: Appears patent No free fluid seen. US/Abdomen Complete IMPRESSION: 3 mm gallbladder polyp versus less likely adherent tumefactive sludge as above. Study otherwise appears within limits. Reading Location: [id number] CC: [facility] LICENSE CLERK-C Marsha Mendez ~ Pellet Post Inspector: Signed [facility]12-30-2024 Evaluation note* Diagnosis Onset Date Resolution Status Admit Date Lung nodule acute February 1:37pm MARYANN (obstructive sleep apnea) chronic March 21, 2 024 1:37pm Smoking greater than 20 pack years chronic March 21, 2 024 1:37pm [facility] Work Phone: [phone] 952-841712-30-2024 Evaluation note* Diagnosis Onset Date Resolution Status Admit Date Lung nodule acute February 1:37pm MARYANN (obstructive sleep apnea) chroni c March 21, 2024 1:37pm Smoking greater than 20 pack years chronic March 21, 2 024 1:37pm Abdominal discomfort, epigastric acute July 11, 2024 7:31am Diverticulosis acute June 7:31am GERD (gastroesophageal reflu x disease) acute July 11, 2024 7:31am [facility] Work Phone: Consult note Author Denys Merritt [facility] Note Date/Time July 11, 2024 11: 41am [facility] Medical Records Department [address] [place] [address] Anesthesia Postop Eval I 07/11/24 114 MR#: [id number] Acct: [id number] Name: MARY AGUILERA Rep #:[id number] : 1960 63 From: Denys Merritt PCP: SLOAN Vaca, LICENSE CLERK-C Statu s:REG SDC Y Race: C Location: [place] [address] Anesthesia: Postop Eval I Current Vital Signs Temperature: 97 F Pulse Rate: 74 Blood Pressure: 100/60 Respiratory Rate: 16 Pulse Ox: 100 Oxygen Delivery Method: Room Air Assessment Airway patent: Yes Spontaneous unlabored respirations: Yes Mental status: Awake nausea: No Vomiting: No Anesthesia Complication: No Fluid Hydration Crystalloid volume administer (ml): 120 Total IV fluid infused: 120 Progress Note Anesthesia document: Postop Eval 1 completed: Yes 07/11/24 114 <Electronically signed by Denys Merritt > Date _ Denys Solis Signature: Date CC: ~ Signed [facility] Work Phone: Consucl note Author Kane Zeng [facility] Note Date/Time July 11, 2024 12: 35pm [facility] Medical Records Department [address] [place] [address] Anesthesia Postop Eval II 07/11/24 1235 MR#: [id number] Acct: [id number] Name: MARY AGUILERA Rep #:[id number] : 1960 63 From: Kane Zeng MD PCP: Marsha Mendez C, LICENSE CLERK-C Statu s:REG SDC Y Race: C Location: [place] [address] Anesthesia Postop Eval I Sum Postop Eval Completion status Anesthesia document: Postop Eval 1 completed: Yes Anesthesia Postop Eval I Summary Anesthesia Postop Eval I Summary: Anesthesia Postop Eval I: Assessment Summary Airway patent Yes 07/11/24 11:41 [email or web address] Spontaneous unlabored Yes 07/11/24 11:41 [email or web address] respirations Mental status Awake 07/11/24 11:41 [email or web address] nausea No 07/11/24 11:41 [email or web address] Vomiting No 07/11/24 11:41 [email or web address] Anesthesia Postop Eval I: Fluid Summary Crystalloid volume administer 120 07/11/24 11:41 [email or web address] (ml) Colloids volume administered ( ml) Blood Product volume administered (ml) Total IV fluid infused 120 07/11/24 11:41 [email or web address] Anesthesia Postop Eval I: Summary Notes Anesthesia Complication No 07/11/24 11:41 [email or web address] Anesthesia Complication Comment: Post-operative progress note Anesthesia: Postop Eval II Evaluation Mental status: Awake Pain Level: 0 nausea: No Vomiting: No 07/11/24 1235 <Electronically signed by Kane Zeng MD > Date _ Kane Zeng MD Cosigner Signature: Date CC: ~ Signed [facility] Work Phone: Evaluation note* Diagnosis Onset Date Resolution Status MARYANN (obstructive sleep apnea) acute [facility] Work Phone: Evaluation note* Diagnosis Onset Date Resolution Status MARYANN (obstructive sleep apnea) acute MARYANN (obstructive sleep apnea) acute [facility] Work Phone: Evaluation note* Diagnosis Onset Date Resolution Status MARYANN (obstructive sleep apnea) acute MARYANN (obstructive sleep apnea) acute GERD (gastroesophageal reflux disease) acute [facility] Work Phone: Evaluation note* Diagnosis Onset Date Resolution Status GERD (gastroesophageal reflux disease) acute Sleep apnea chronic Smoking greater than 20 pack years chronic [facility] Work Phone: Evaluation note* Diagnosis Onset Date Resolution Status MARYANN (obstructive sleep apnea) chronic Smoking greater than 20 pack years chronic [facility] Work Phone: Evaluation noteNo assessment information available [facility] Work Phone: History and physical note Author Celia Modi [facility] Note Date/Time November 03, 2024 4: 55pm [facility] Medical Records Department [address] [place] [address] H&P Exam - Hospitalist 11/03/24 1633 MR#: [id number] Acct: [id number] Name: MARY AGUILERA Rep #:[id number] : 1960 64 From: Celia Modi MD PCP: SLOAN Vaca, LICENSE CLERK-C Statu s:ADM IN Location: [place] [address] HPI - General General Date of Admission: 11/03/24 Date of Service: 11/03/24 Chief Complaint: Hemoptysis, low O2 HPI Narrative MARY AGUILERA, is a 64-year-old female history of depression, anxiety, GERD, asthma, tobacco use presented to [facility] ED 11/03/2024 after abiopsy of her lung. She subsequently developed dyspnea and hypoxia, there was no postprocedure pneumothorax on x-ray so CTA obtained which showed bilateral pulmonary emboli with possible evidence of heart strain with bilateral lower lobe infarctions and stable lymphadenopathy. She was noted to be afebrile, heart rate in the 60s with blood pressure 128/69, respiratory rate 12 and pulse ox 96% on 2 L nasal cannula. CBC with white blood cell count of 12.6, hemoglobin 11.6 and platelet count 282. Lactic acid within normal limits and BMP only notable for a slightly low bicarb of 19.5 but anion gap within normal limits on her assay at 14. proBNP 412, troponin 25. Given the above hospitalist contacted for admission. Patient evaluated at bedside, she reports that she had a lung nodule found on her routine low-dose CT screening followed it with serial imaging due to it continuing to grow she was referred for the biopsy. She notes over the past 2 weeks she has had increased shortness of breath on exertion the point that at times she has to stop and has been somewhatachy all over, notes for the past week her right heel has been hurting as well but denies swelling in her lower extremities, had not really been coughing either. No fevers or chills. Notes that after the biopsy she did not have any increased shortness of breath but was noted to have low O2 and she did have the episodes of hemoptysis so she was brought to the ED. Reports that the hemoptysis is slowing down, does not have any shortness of breath and reports this is not changed throughout any of the events today. No pain in the center of her chest but does have some pain on deep inspiration at the site of biopsy on the left. [facility] Medical History Wears glasses Arthritis Shortness of breath on exertion Leg cramps Change in bowel habit Generalized abdominal pain Heart murmur Dyspnea on exertion Post-menopausal High cholesterol Back pain Syncope Gastric reflux Smoker BiPAP (biphasic positive airway pressure) dependence Asthma History of echocardiogram History of stress test Cardiology follow-up encounter Hyperlipidemia Skin cancer Anxiety and depression Home Medications ?Medication ?Instructions ?Recorded ?Last Taken ?Type albuterol sulfate 90 mcg/actuation 2 puff inhalation Q 6H PRN 04/15/23 Unknown History aerosol inhaler shortness of breath or wheez ing bupropion HCl 150 mg tablet,12 hr 150 mg PO BID depres ellen 06/23/24 Unknown History sustained-release (Wellbutrin SR) escitalopram oxalate 10 mg tablet 10 mg PO DAILY depre ssion 06/23/24 Unknown History (Lexapro) lactobacillus combination no.9 4 4,000 mmu cells PO QD AY supple 06/23/24 Unknown History billion cell capsule (Adult 50 Plus Probiotic) multivitamin (Daily Multi-Vitamin 1 tab PO DAILY vitam in 07/06/24 Unknown History tablet) cholecalciferol (vitamin D3) 125 125 mcg PO QDAY suppl e 07/20/24 Unknown History mcg (5,000 unit) capsule pantoprazole 20 mg tablet,delayed 20 mg PO QDAY gerd 0 07/26/24 Unknown History release (Protonix) Oral appliance #1 ea 08/16/24 Unknown Rx escitalopram oxalate 20 mg tablet 20 mg PO QDAY depres ellen 10/06/24 Unknown History (Lexapro) rosuvastatin 20 mg tablet 20 mg PO DAILY hyperlipidemi a 10/06/24 Unknown History Allergy/AdvReac Type Severity Reaction Status Date / Time Penicillins Allergy Intermediate Hives Verified 11/03/24 13:18 Family History Mother Breast cancer Hypertension Aunt Breast cancer Brother Hypertension Father Atrial fibrillation Surgical History History of esophagogastroduodenoscopy (EGD) Hx of colonoscopy Cyst Removal from breast History of [facility] Hx of appendectomy Social History Smoking Status: Current every day smoker tobacco type: cigarettes alcohol intake: never substance use type: does not use caffeine: Yes what type of physical activity do you participate in: walking frequency: 3-4 times per week seatbelt use: always do you feel safe at home: Yes additional social history: , Just moved back from the [facility] ROS ROS Narrative General: Denies fever/chills HENT: Denies headache, denies stuffy nose, denies sore throat EYES: Denies changes in vision Resp: Shortness of breath on exertion over the past 2 weeks and some hemoptysis since biopsy that she feels is slowing down Cardiac: Denies chest pain deep inspiration site of biopsy GI: Denies abdominal pain, denies changes in bowel, denies nausea/vomiting : Denies changes in urination Extremity: Denies swelling, has had some right heel pain over the past 1 week MSK: Denies weakness, some generalized achiness over the past 1 to 2 weeks Neuro: Denies any numbness/tingling Heme: Denies any bleeding or bruising aside from above Skin: Denies rashes Psychiatric: No complaints voiced Vital Signs Vital Signs Vital Signs: 11/03/24 13:18 11/03/24 13:22 11/03/24 13:23 Temperature 97.9 F 97.9 F Temperature Source Oral Oral Pulse Rate 61 67 Respiratory Rate 12 14 Respiratory Effort Normal Respiratory Depth Normal Respiratory Pattern Normal Blood Pressure 128/69 H 128/69 H Blood Pressure Mean 88 88 Pulse Ox 96 94 Oxygen Delivery Method Nasal Cannula Room Air Room Air Oxygen Flow Rate (L/min) 2 11/03/24 14:29 11/03/24 14:32 11/03/24 15:00 Temperature 98.6 F Temperature Source Oral Pulse Rate 63 63 64 Respiratory Rate 12 12 14 Respiratory Effort Respiratory Depth Respiratory Pattern Blood Pressure 133/68 H 133/68 H 132/71 H Blood Pressure Mean 89 89 91 Pulse Ox 93 94 95 Oxygen Delivery Method Nasal Cannula Nasal Cannula Nasal Cannula Oxygen Flow Rate (L/min) 2 2 2 11/03/24 15:00 11/03/24 16:00 11/03/24 16:27 Temperature 98.6 F 98.9 F Temperature Source Oral Pulse Rate 64 64 71 Respiratory Rate 14 17 20 H Respiratory Effort Respiratory Depth Respiratory Pattern Blood Pressure 132/71 H 129/66 H 132/67 H Blood Pressure Mean 91 87 88 Pulse Ox 95 96 94 Oxygen Delivery Method Nasal Cannula Nasal Cannula Oxygen Flow Rate (L/min) 2 2 Weight Weight: 71 kg Body Mass Index (BMI) 27.7 Physical Exam Narrative General: Alert, oriented HEENT: Atraumatic, normocephalic Eyes: Anicteric, normal conjunctiva, extraocular movements grossly intact Neck: Supple Respiratory: Some crackles at the bases, normal respiratory effort Cardiovascular: Regular rate and rhythm GI: Soft, nontender, nondistended Extremities: No edema, no pain on palpation of right heel Musculoskeletal: Moving all extremities Neuro: No overt focal neurological deficits Skin: No rashes appreciated Psych: Cooperative Results Lab / Micro Data 11/03/24 14:00 11/03/24 14:00 Labs: Laboratory Results - last 24 hr 11/03/24 14:00: WBC 12.6 H, RBC 4.08 L, Hgb 11.6 L, Hct 35.2 L, MCV 86.3, MCH 28.4, MCHC 33.0, RDW Std Deviation 43.3, RDW Coeff of Millie 13.7, Plt Count 282, MPV 10.5, Immature Gran % (Auto) 0.400, Neut % (Auto) 70.2 H, Lymph % (Auto) 16.3 L, Wagoner % (Auto) 8.6, Eos % (Auto) 3.7, Baso % (Auto) 0.8, Absolute Neuts (auto) 8.8 H, Absolute Lymphs (auto) 2.05, Nucleated RBC % 0, PT 14.5, INR 1.1, APTT 26.4, Sodium 140, Potassium 4.6, Chloride 106, Carbon Dioxide 19.5 L, AnionGap 14, BUN 15, Creatinine 0.92, Estim Creat Clear Calc 56.82, Est GFR (MDRD) Non-Af 69, BUN/Creatinine Ratio 16.4, Glucose 84, Lactic Acid < 1.0, Calcium 9.1, Troponin T High Sens 25 H, NT pro BNP II 412 Imaging Radiology Impression Chest CTA 11/03/24 13:47 IMPRESSION: Bilateral pulmonary emboli with evidence of heart strain. Bilateral lower lobe pulmonary infarctions. Left lower lobe nodule is obscured due to infarction. Stable lymphadenopathy. Critical results communicated to Dr. Guerrero at 3 p.m.. Reading Location: [facility] Assessment & Plan Assessment/Plan (1) Bilateral pulmonary embolism: PLAN: Plan # Hypoxia secondary to bilateral pulmonary emboli - May have underlying malignancy given this lung mass and now pulmonary embolism - Patient required 2 L nasal cannula, CT did show bilateral pulmonary emboli with possible lower lobe infarcts and right heart strain but aside from needing 2 L patient vitally stable -proBNP also only 412 and troponin 25 - Patient on heparin drip for now with plans to transition to oral anticoagulation on discharge -Patient reports her episodes of hemoptysis are improving now that she is on heparin, monitor closely -Incentive spirometer -Will obtain echocardiogram in the a.m. -Will also order lower extremity duplex to assess for any further clot burden #Depression/anxiety -Continue home medications #GERD -Continue PPI # History of asthma - As needed albuterol #Tobacco use -Advise cessation -Nicotine replacement available if desired #DVT ppx: Patient to be on IV heparin at this time Celia Modi MD Charges/Coding Visit Charges Inpatient E&M: 64115 Init Hosp L2 11/03/24 5197 <Electronically signed by Celia Modi MD> Cosigner Signature (if applicable): CC: [facility] LICENSE CLERKJyotiC Marsha Mendez; Dr. Celia Modi MD~ Signed [facility] Work Phone: Reason for referral (narrative)No reason for referral information availableWUniversity [facility]als [facility] Work Phone: Chief Complaint and Reason for Visit Chief Complaint HYPERSOMNIA Sleep problems MARYANN; LM 05/30 & 06/03 Reason for Visit MARYANN (obstructive sle ep apnea) Chief Complaint Sleep problems MARYANN; LM 05/30 & 06/03 MARYANN; AUTO CPAP *INVENTORY TAGGED 08/20 Reason for Visit MARYANN (obstructive sle ep apnea) Chief Complaint MARYANN; AUTO CPAP *INVE NTORY TAGGED 08/20 2 M FU 5 month fu SCREENING Reason for Visit MARYANN (obstructive sle ep apnea) MARYANN (obstructive sleep apnea) Chief Complaint MARYANN; AUTO CPAP *INVE NTORY TAGGED 08/20 2 M FU 5 month fu SCREENING MARYANN Reason for Visit MARYANN (obstructive sle ep apnea) MARYANN (obstructive sleep apnea) Chief Complaint 2 M FU 5 month fu SCREENING MARYANN EGD/Chronic Gastritis BIPAP ST SWAP FOR CPAP Reason for Visit MARYANN (obstructive sle ep apnea) MARYANN (obstructive sleep apnea) GERD (gastroesophageal reflux disease) Chief Complaint MARYANN EGD/Chronic Gastritis BIPAP ST SWAP FOR CPAP 4 M FU SMOKING Reason for Visit GERD (gastroesophage al reflux disease) Sleep apnea Smoking greater than 20 pack years Chief Complaint EGD/Chronic Gastriti s BIPAP ST SWAP FOR CPAP 4 M FU SMOKING Reason for Visit GERD (gastroesophage al reflux disease) Sleep apnea Smoking greater than 20 pack years Chief Complaint 6 M FU Reason for Visit MARYANN (obstructive sle ep apnea) Smoking greater than 20 pack years Chief Complaint NICOTINE DEPENDENCE, SMOKING >20 PK YRS Chief Complaint Admit Date Nicotine dependence, cigarettes, uncompl icated March 14, 2024 8:14am 8 m fu March 21, 2024 1:37pm ABD PAIN June 16, 2024 8:2 5am Reason for Visit Admit Date Lung nodule March 21, 2024 1:37pm MARYANN (obstructive sleep apnea) February 222023 1:37pm Smoking greater than 20 pack years Decem 2023 1:37pm Chief Complaint Admit Date Nicotine dependence, cigarettes, uncompl icated March 14, 2024 8:14am 8 m fu March 21, 2024 1:37pm ABD PAIN June 16, 2024 8:2 5am LUNG NODULE June 20, 2024 8:2 3am Chief Complaint Admit Date Nicotine dependence, cigarettes, uncompl icated March 14, 2024 8:14am 8 m fu March 21, 2024 1:37pm ABD PAIN June 16, 2024 8:2 5am LUNG NODULE June 20, 2024 8:2 3am Amb Documentation June 23, 2024 12:4 2pm Reason for Visit Admit Date Lung nodule March 21, 2024 1:37pm MARYANN (obstructive sleep apnea) February 222023 1:37pm Smoking greater than 20 pack years Decem 2023 1:37pm Abdominal discomfort, epigastric June 222024 7:31am Diverticulosis July 11, 2024 7:3 1am GERD (gastroesophageal reflux disease) A pril 2024 7:31am Chief Complaint Admit Date ABD PAIN June 16, 2024 8:2 5am LUNG NODULE June 20, 2024 8:2 3am Amb Documentation June 23, 2024 12:4 2pm 4 M FU July 20, 2024 1:0 6pm 6 M FU July 26, 2024 11:17a m Reason for Visit Admit Date Abdominal discomfort, epigastric June 222024 7:31am Diverticulosis July 11, 2024 7:3 1am GERD (gastroesophageal reflux disease) A pril 2024 7:31am Lung nodule July 20, 2024 1:0 6pm MARYANN (obstructive sleep apnea) June 1:06pm Smoking greater than 20 pack years July 20, 2024 1:06pm Dyspnea on exertion July 26, 2024 11:17a m Heart murmur July 26, 2024 11:17a m Hyperlipidemia July 26, 2024 11:17a m MARYANN (obstructive sleep apnea) July 26 11:17am Smoking greater than 20 pack years July 262024 11:17am Chief Complaint Admit Date ABD PAIN June 16, 2024 8:2 5am LUNG NODULE June 20, 2024 8:2 3am Amb Documentation June 23, 2024 12:4 2pm 4 M FU July 20, 2024 1:0 6pm 6 M FU July 26, 2024 11:17a m eval for oral appliance August 05, 2024 8 :26pm Chief Complaint Admit Date ABD PAIN June 16, 2024 8:2 5am LUNG NODULE June 20, 2024 8:2 3am Amb Documentation June 23, 2024 12:4 2pm 4 M FU July 20, 2024 1:0 6pm 6 M FU July 26, 2024 11:17a m eval for oral appliance August 05, 2024 8 :26pm 8MM NODULE IN [place]KER September 27, 2024 2:53 pm Chief Complaint Admit Date ABD PAIN June 16, 2024 8:2 5am LUNG NODULE June 20, 2024 8:2 3am Amb Documentation June 23, 2024 12:4 2pm 4 M FU July 20, 2024 1:0 6pm 6 M FU July 26, 2024 11:17a m eval for oral appliance August 05, 2024 8 :26pm 8MM NODULE IN [place] September 27, 2024 2:53 pm 3 M FU October 06, 2024 1:05 pm Reason for Visit Admit Date Abdominal discomfort, epigastric June 222024 7:31am Diverticulosis July 11, 2024 7:3 1am GERD (gastroesophageal reflux disease) A pril 2024 7:31am Lung nodule July 20, 2024 1:0 6pm MARYANN (obstructive sleep apnea) June 1:06pm Smoking greater than 20 pack years July 20, 2024 1:06pm Dyspnea on exertion July 26, 2024 11:17a m Heart murmur July 26, 2024 11:17a m Hyperlipidemia July 26, 2024 11:17a m MARYANN (obstructive sleep apnea) July 26, 2 025 11:17am Smoking greater than 20 pack years July 262024 11:17am Lung nodule October 06, 2024 1:05 pm MARYANN (obstructive sleep apnea) October 06, 2024 1:05pm Smoking greater than 20 pack years October 06, 2024 1:05pm Chief Complaint Admit Date 4 M FU July 20, 2024 1:0 6pm 6 M FU July 26, 2024 11:17a m eval for oral appliance August 05, 2024 8 :26pm 8MM NODULE IN [place] September 27, 2024 2:53 pm 3 M FU October 06, 2024 1:05 pm INCREASING SIZE LLL NODULE *URGENT* Augu st 2024 7:46am BILATERAL PULMONARY EMBOLUS, HYPOXIA, HE MOPTYSIS, November 03, 2024 4:33pm Reason for Visit Admit Date Abdominal discomfort, epigastric June 222024 7:31am Diverticulosis July 11, 2024 7:3 1am GERD (gastroesophageal reflux disease) A pril 2024 7:31am Lung nodule July 20, 2024 1:0 6pm MARYANN (obstructive sleep apnea) June 1:06pm Smoking greater than 20 pack years July 20, 2024 1:06pm Dyspnea on exertion July 26, 2024 11:17a m Heart murmur July 26, 2024 11:17a m Hyperlipidemia July 26, 2024 11:17a m MARYANN (obstructive sleep apnea) July 26 11:17am Smoking greater than 20 pack years July 262024 11:17am Lung nodule October 06, 2024 1:05 pm MARYANN (obstructive sleep apnea) October 06, 2024 1:05pm Smoking greater than 20 pack years October 06, 2024 1:05pm Acute pulmonary embolism with acute cor pulmonale November 03, 2024 4:33pm Bilateral pulmonary embolism October 4:33pm Hemoptysis November 03, 2024 4: 33pm Hypoxia November 03, 2024 4: 33pm Pleural effusion, left November 03, 2024 4:33pm Pulmonary embolism and infarction November 03, 2024 4:33pm Hyperlipidemia November 03, 2024 4: 33pm Lung nodule November 03, 2024 4: 33pm MARYANN (obstructive sleep apnea) October 4:33pm Smoking greater than 20 pack years Augus t 2024 4:33pm Family History Relationship Condition Age at Onset Recorded Date/T adria mother Malignant neoplasm of breast Unknown Hypertension Unknown aunt Malignant neoplasm of breast Unknown brother Hypertension Unknown Relationship Condition Age at Onset Recorded Date/T adria mother Malignant neoplasm of breast Unknown Hypertension Unknown aunt Malignant neoplasm of breast Unknown brother Hypertension Unknown father Atrial fibrillation Unknown Advance Directives Advance Directive Response Recorded Date/ Time Living Will No January 09 2:55pm Power of [employer] [place] No January 09, 2022 2:55pm Advance Directive Response Recorded Date/ Time Living Will No January 09 1:55pm Power of [employer] [place] No January 09, 2022 1:55pm Advance Directive Response Recorded Date/ Time Living Will No January 09 2:55pm Do you have a Healthcare Power of [employer]? No January 09, 2022 2:55pm Advance Directive Response Recorded Date/ Time Living Will No January 09 2:55pm Do you have a Healthcare Power of [employer]? No January 09, 2022 2:55pm Living Will No July 06, 2024 10:35am Do you have a Healthcare Power of [employer] [place]? No July 06, 2024 10:35am Advance Directive Response Recorded Date/ Time Living Will No July 06, 2024 10:35am Do you have a Healthcare Power of [employer]? No July 06, 2024 10:35am Advance Directive Response Recorded Date/ Time Living Will No July 06, 2024 10:35am Do you have a Healthcare Power of [employer]? No July 06, 2024 10:35am Do you have a Healthcare Power of [employer]? No November 03, 2024 1:18pm Summary Purpose Additional Source Comments Goals (unrecognized section and content) Goals may be documented in a n alternate sectionGoals may be documented in an alternate sectionGoals may be documented in an alternate sectionGoals may be documented in an alternate sectionGoals may be documented in an alternate sectionGoals may be documented in an alternate sectionGoals may be documented in an alternate sectionGoals may be documented in an alternate sectionGoals may be documented in an alternate sectionGoals may be documented in an alternate sectionGoals may be documented in an alternate sectionGoals may be documented in an alternate section Care Teams (unrecognized sec tion and content) Team Status: Active Member Role Status Dates [facility] Family Provider Active [facility] Primary Care Provider A ctive Team Status: Inactive Member Role Status Dates [facility] Primary Care Provider, Referring Provider Active Melissa Pickering LICENSE CLERK, LICENSE CLERK-C Attending Provider Active Team Status: Inactive Member Role Status Dates [facility] Primary Care Provider, Referring Provider Active Marsha Mendez LICENSE CLERK, LICENSE CLERK-C Attending Provider, Other Pr ovider Active Team Status: Inactive Member Role Status Dates [facility] Primary Care Provider A ctive Melissa Pickering LICENSE CLERK, LICENSE CLERK-C Attending Provider, Referrin g Provider Active Team Status: Inactive Member Role Status Dates [facility] Primary Care Provider, Referring Provider Active Dr. Jim Lama MD Attending Provider Active Team Status: Inactive Member Role Status Dates [facility] Primary Care Provider A ctive Marsha Mendez VSC, LICENSE CLERK-C Attending Provider Active Team Status: Active Member Role Status Dates Marsha Mendez VSC, LICENSE CLERK-C Primary Care Provider Activ e Team Status: Inactive Member Role Status Dates Melissa Pickering LICENSE CLERK, LICENSE CLERK-C Attending Provider Active Start: March 14, 2024 End: March 14, 2024 Melissa Pickering LICENSE CLERK, LICENSE CLERK-C Referring Provider Active Start: March 14, 2024 End: March 14, 2024 Marsha Mendez VSC, LICENSE CLERK-C Primary Care Provider Activ e Start: March 14, 2024 End: March 14, 2024 Team Status: Inactive Member Role Status Dates [facility] Referring Provider Active Start: February End: March 21, 2024 Melissa Pickering LICENSE CLERK, LICENSE CLERK-C Attending Provider Active Start: March 21, 2024 End: March 21, 2024 Marsha LISA, LICENSE CLERK-C Primary Care Provider Activ e Start: March 21, 2024 End: March 21, 2024 Team Status: Inactive Member Role Status Dates Marsha Mendez VSC, LICENSE CLERK-C Primary Care Provider Activ e Start: June 08, 2024 End: June 08, 2024 Marsha SCOTTC, LICENSE CLERK-C Attending Provider Active Start: June 08, 2024 End: June 08, 2024 Team Status: Active Member Role Status Dates Marsha Mendez VSC, LICENSE CLERK-C Primary Care Provider Activ e Start: June 16, 2024 Marsha SCOTTC, LICENSE CLERK-C Attending Provider Active Start: June 16, 2024 Marsha Mendez VSC, LICENSE CLERK-C Referring Provider Active Start: June 16, 2024 Team Status: Inactive Member Role Status Dates Marsha Mendez VSC, LICENSE CLERK-C Primary Care Provider Activ e Start: June 16, 2024 End: June 16, 2024 Marsha Liu SCOTTC, LICENSE CLERK-C Attending Provider Active Start: June 16, 2024 End: June 16, 2024 Marsha SCOTTC, LICENSE CLERK-C Referring Provider Active Start: June 16, 2024 End: June 16, 2024 Team Status: Active Member Role Status Dates Marsha SCOTTC, LICENSE CLERK-C Primary Care Provider Activ e Start: June 20, 2024 Melissa Pickering LICENSE CLERK, LICENSE CLERK-C Attending Provider Active Start: June 20, 2024 Melissa Pickering LICENSE CLERK, LICENSE CLERK-C Referring Provider Active Start: June 20, 2024 Team Status: Inactive Member Role Status Dates Marsha SCOTTC, LICENSE CLERK-C Primary Care Provider Activ e Start: June 20, 2024 End: June 20, 2024 Melissa Pickering LICENSE CLERK, LICENSE CLERK-C Attending Provider Active Start: June 20, 2024 End: June 20, 2024 Melissa Pickering LICENSE CLERK, LICENSE CLERK-C Referring Provider Active Start: June 20, 2024 End: June 20, 2024 Team Status: Active Member Role Status Dates Marsha SCOTTManohar, LICENSE CLERK-C Primary Care Provider Activ e Start: June 23, 2024 Trinidad Short Attending Provider Active Start: 2024 Team Status: Inactive Member Role Status Dates Marsha SCOTTC, LICENSE CLERK-C Primary Care Provider Activ e Start: July 11, 2024 End: July 11, 2024 Dr. Blanco Ayala MD Attending Provider Active Start: July 11, 2024 End: July 11, 2024 Dr. Blanco Ayala MD Referring Provider Active Start: July 11, 2024 End: July 11, 2024 Team Status: Active Member Role Status Dates Marsha SCOTTManohar, LICENSE CLERK-C Primary Care Provider Activ e Start: July 11, 2024 Dr. Blanco Ayala MD Attending Provider Active Start: July 11, 2024 Dr. Blanco Ayala MD Referring Provider Active Start: July 11, 2024 Dr. Blanco Ayala MD Other Provider Active Sta rt: July 11, 2024 Team Status: Inactive Member Role Status Dates Marsha SCOTTManohar, LICENSE CLERK-C Primary Care Provider Activ e Start: July 19, 2024 End: July 19, 2024 Marsha Liu LISA, LICENSE CLERK-C Attending Provider Active Start: July 19, 2024 End: July 19, 2024 Team Status: Inactive Member Role Status Dates Marsha Liu VSC, LICENSE CLERK-C Primary Care Provider Activ e Start: July 20, 2024 End: July 20, 2024 Marsha Mendez VSC, LICENSE CLERK-C Referring Provider Active Start: July 20, 2024 End: July 20, 2024 Melissa Pickering LICENSE CLERK, LICENSE CLERK-C Attending Provider Active Start: July 20, 2024 End: July 20, 2024 Team Status: Inactive Member Role Status Dates Marsha Liu VSC, LICENSE CLERK-C Primary Care Provider Activ e Start: July 26, 2024 End: July 26, 2024 Marsha Mendez VSC, LICENSE CLERK-C Referring Provider Active Start: July 26, 2024 End: July 26, 2024 Tamia Wooten LICENSE CLERK, LICENSE CLERK-C Attending Provider Active Start: July 26, 2024 End: July 26, 2024 Team Status: Inactive Member Role Status Dates Marsha Mendez VSC, LICENSE CLERK-C Primary Care Provider Activ e Start: August 05, 2024 End: August 05, 2024 Melissa Pickering LICENSE CLERK, LICENSE CLERK-C Attending Provider Active Start: August 05, 2024 End: August 05, 2024 Melissa Pickering LICENSE CLERK, LICENSE CLERK-C Referring Provider Active Start: August 05, 2024 End: August 05, 2024 Team Status: Active Member Role/Relationship Status Dates Marsha Mendez VSC, LICENSE CLERK-C Primary Care Provider Activ e Team Status: Inactive Member Role/Relationship Status Dates Marsha Mendez VSC, LICENSE CLERK-C Primary Care Provider Activ e Start: June 08, 2024 End: June 08, 2024 Marsha Mendez VSC, LICENSE CLERK-C Attending Provider Active Start: June 08, 2024 End: June 08, 2024 Team Status: Inactive Member Role/Relationship Status Dates Marsha Mendez VSC, LICENSE CLERK-C Primary Care Provider Activ e Start: June 16, 2024 End: June 16, 2024 Marsha Mendez VSC, LICENSE CLERK-C Attending Provider Active Start: June 16, 2024 End: June 16, 2024 Marsha Mendez VSC, LICENSE CLERK-C Referring Provider Active Start: June 16, 2024 End: June 16, 2024 Team Status: Inactive Member Role/Relationship Status Dates Marsha Mendez VSC, LICENSE CLERK-C Primary Care Provider Activ e Start: June 20, 2024 End: June 20, 2024 Melissa Pickering LICENSE CLERK, LICENSE CLERK-C Attending Provider Active Start: June 20, 2024 End: June 20, 2024 Melissa Pickering LICENSE CLERK, LICENSE CLERK-C Referring Provider Active Start: June 20, 2024 End: June 20, 2024 Team Status: Active Member Role/Relationship Status Dates Marsha Liu VSC, LICENSE CLERK-C Primary Care Provider Activ e Start: June 23, 2024 Trinidad Short Attending Provider Active Start: 2024 Team Status: Inactive Member Role/Relationship Status Dates Marsha Liu VSC, LICENSE CLERK-C Primary Care Provider Activ e Start: July 11, 2024 End: July 11, 2024 Dr. Blanco Ayala MD Attending Provider Active Start: July 11, 2024 End: July 11, 2024 Dr. Blanco Ayala MD Referring Provider Active Start: July 11, 2024 End: July 11, 2024 Team Status: Active Member Role/Relationship Status Dates Marshachristianne Mendez VSC, LICENSE CLERK-C Primary Care Provider Activ e Start: July 11, 2024 Dr. Blanco Ayala MD Attending Provider Active Start: July 11, 2024 Dr. Blanco Ayala MD Referring Provider Active Start: July 11, 2024 Dr. Blanco Ayala MD Other Provider Active Sta rt: July 11, 2024 Team Status: Inactive Member Role/Relationship Status Dates Marsha Liu VSC, LICENSE CLERK-C Primary Care Provider Activ e Start: July 19, 2024 End: July 19, 2024 Marsha Mendez VSC, LICENSE CLERK-C Attending Provider Active Start: July 19, 2024 End: July 19, 2024 Team Status: Inactive Member Role/Relationship Status Dates Marsha Liu VSC, LICENSE CLERK-C Primary Care Provider Activ e Start: July 20, 2024 End: July 20, 2024 Marsha Mendez VSC, LICENSE CLERK-C Referring Provider Active Start: July 20, 2024 End: July 20, 2024 Melissa Pickering LICENSE CLERK, LICENSE CLERK-C Attending Provider Active Start: July 20, 2024 End: July 20, 2024 Team Status: Inactive Member Role/Relationship Status Dates Marsha Liu VSC, LICENSE CLERK-C Primary Care Provider Activ e Start: July 26, 2024 End: July 26, 2024 Marsha Mendez VSC, LICENSE CLERK-C Referring Provider Active Start: July 26, 2024 End: July 26, 2024 Tamia Wooten LICENSE CLERK, LICENSE CLERK-C Attending Provider Active Start: July 26, 2024 End: July 26, 2024 Team Status: Inactive Member Role/Relationship Status Dates Marshachristianne Mendez VSC, LICENSE CLERK-C Primary Care Provider Activ e Start: August 05, 2024 End: August 05, 2024 Melissa Pickering LICENSE CLERK, LICENSE CLERK-C Attending Provider Active Start: August 05, 2024 End: August 05, 2024 Melissa Pickering LICENSE CLERK, LICENSE CLERK-C Referring Provider Active Start: August 05, 2024 End: August 05, 2024 Team Status: Inactive Member Role/Relationship Status Dates Marshachristianne Mendez VSC, LICENSE CLERK-C Primary Care Provider Activ e Start: September 27, 2024 End: September 27, 2024 Melissa Pickering LICENSE CLERK, LICENSE CLERK-C Attending Provider Active Start: September 27, 2024 End: September 27, 2024 Melissa Pickering LICENSE CLERK, LICENSE CLERK-C Referring Provider Active Start: September 27, 2024 End: September 27, 2024 Team Status: Inactive Member Role/Relationship Status Dates Marsha Liu VSC, LICENSE CLERK-C Primary Care Provider Activ e Start: October 06, 2024 End: October 06, 2024 Marsha Mendez VSC, LICENSE CLERK-C Referring Provider Active Start: October 06, 2024 End: October 06, 2024 Melissa Pickering LICENSE CLERK, LICENSE CLERK-C Attending Provider Active Start: October 06, 2024 End: October 06, 2024 Team Status: Active Member Role/Relationship Status Dates Marshachristianne Mendez VSC, LICENSE CLERK-C Primary Care Provider Activ e Start: October 06, 2024 Melissa Pickering LICENSE CLERK, LICENSE CLERK-C Attending Provider Active Start: October 06, 2024 Melissa Pickering LICENSE CLERK, LICENSE CLERK-C Referring Provider Active Start: October 06, 2024 Team Status: Inactive Member Role/Relationship Status Dates Marsha Mendez VSC, LICENSE CLERK-C Primary Care Provider Activ e Start: June 16, 2024 End: June 16, 2024 Marsha Mendez VSC, LICENSE CLERK-C Attending Provider Active Start: June 16, 2024 End: June 16, 2024 Marsha Mendez VSC, LICENSE CLERK-C Referring Provider Active Start: June 16, 2024 End: June 16, 2024 Team Status: Inactive Member Role/Relationship Status Dates Marsha SCOTTManohar, LICENSE CLERK-C Primary Care Provider Activ e Start: June 20, 2024 End: June 20, 2024 Melissa Pickering LICENSE CLERK, LICENSE CLERK-C Attending Provider Active Start: June 20, 2024 End: June 20, 2024 Melissa Pickering LICENSE CLERK, LICENSE CLERK-C Referring Provider Active Start: June 20, 2024 End: June 20, 2024 Team Status: Active Member Role/Relationship Status Dates Marsha SCOTTC, LICENSE CLERK-C Primary Care Provider Activ e Start: June 23, 2024 Trinidad Short Attending Provider Active Start: 2024 Team Status: Inactive Member Role/Relationship Status Dates Marsha Liu VSC, LICENSE CLERK-C Primary Care Provider Activ e Start: July 11, 2024 End: July 11, 2024 Dr. Blanco Ayala MD Attending Provider Active Start: July 11, 2024 End: July 11, 2024 Dr. Blanco Ayala MD Referring Provider Active Start: July 11, 2024 End: July 11, 2024 Team Status: Active Member Role/Relationship Status Dates Marsha Mendez VSC, LICENSE CLERK-C Primary Care Provider Activ e Start: July 11, 2024 Dr. Blanco Ayala MD Attending Provider Active Start: July 11, 2024 Dr. Blanco Ayala MD Referring Provider Active Start: July 11, 2024 Dr. Blanco Ayala MD Other Provider Active Sta rt: July 11, 2024 Team Status: Inactive Member Role/Relationship Status Dates Marsha Mendez VSC, LICENSE CLERK-C Primary Care Provider Activ e Start: July 19, 2024 End: July 19, 2024 Marsha Liu VSC, LICENSE CLERK-C Attending Provider Active Start: July 19, 2024 End: July 19, 2024 Team Status: Inactive Member Role/Relationship Status Dates Marsha Mendez VSC, LICENSE CLERK-C Primary Care Provider Activ e Start: July 20, 2024 End: July 20, 2024 Marsha SCOTTC, LICENSE CLERK-C Referring Provider Active Start: July 20, 2024 End: July 20, 2024 Melissa Pickering LICENSE CLERK, LICENSE CLERK-C Attending Provider Active Start: July 20, 2024 End: July 20, 2024 Team Status: Inactive Member Role/Relationship Status Dates Marsha Mendez VSC, LICENSE CLERK-C Primary Care Provider Activ e Start: July 26, 2024 End: July 26, 2024 Marhsa Liu VSC, LICENSE CLERK-C Referring Provider Active Start: July 26, 2024 End: July 26, 2024 Tamia Wooten LICENSE CLERK, LICENSE CLERK-C Attending Provider Active Start: July 26, 2024 End: July 26, 2024 Team Status: Inactive Member Role/Relationship Status Dates Marsha Liu VSC, LICENSE CLERK-C Primary Care Provider Activ e Start: August 05, 2024 End: August 05, 2024 Melissa Pickering LICENSE CLERK, LICENSE CLERK-C Attending Provider Active Start: August 05, 2024 End: August 05, 2024 Melissa Pickering LICENSE CLERK, LICENSE CLERK-C Referring Provider Active Start: August 05, 2024 End: August 05, 2024 Team Status: Inactive Member Role/Relationship Status Dates Marsha Liu VSC, LICENSE CLERK-C Primary Care Provider Activ e Start: September 27, 2024 End: September 27, 2024 Melissa Pickering LICENSE CLERK, LICENSE CLERK-C Attending Provider Active Start: September 27, 2024 End: September 27, 2024 Melissa Pickering LICENSE CLERK, LICENSE CLERK-C Referring Provider Active Start: September 27, 2024 End: September 27, 2024 Team Status: Inactive Member Role/Relationship Status Dates Marsha Mendez VSC, LICENSE CLERK-C Primary Care Provider Activ e Start: October 06, 2024 End: October 06, 2024 Marsha Mendez VSC, LICENSE CLERK-C Referring Provider Active Start: October 06, 2024 End: October 06, 2024 Melissa Pickering LICENSE CLERK, LICENSE CLERK-C Attending Provider Active Start: October 06, 2024 End: October 06, 2024 Team Status: Inactive Member Role/Relationship Status Dates Marsha Liu VSC, LICENSE CLERK-C Primary Care Provider Activ e Start: October 06, 2024 End: October 06, 2024 Melissa Pickering LICENSE CLERK, LICENSE CLERK-C Attending Provider Active Start: October 06, 2024 End: October 06, 2024 Melissa Pickering LICENSE CLERK, LICENSE CLERK-C Referring Provider Active Start: October 06, 2024 End: October 06, 2024 Team Status: Inactive Member Role/Relationship Status Dates Marsha Liu VSC, LICENSE CLERK-C Primary Care Provider Activ e Start: July 11, 2024 End: July 11, 2024 Dr. Blanco Ayala MD Attending Provider Active Start: July 11, 2024 End: July 11, 2024 Dr. Blanco Ayala MD Referring Provider Active Start: July 11, 2024 End: July 11, 2024 Team Status: Active Member Role/Relationship Status Dates Marsha Liu SCOTTC, LICENSE CLERK-C Primary Care Provider Activ e Start: July 11, 2024 Dr. Blanco Ayala MD Attending Provider Active Start: July 11, 2024 Dr. Blanco Ayala MD Referring Provider Active Start: July 11, 2024 Dr. Blanco Ayala MD Other Provider Active Sta rt: July 11, 2024 Team Status: Inactive Member Role/Relationship Status Dates Marsha Liu VSC, LICENSE CLERK-C Primary Care Provider Activ e Start: July 19, 2024 End: July 19, 2024 Marsha Mendez VSC, LICENSE CLERK-C Attending Provider Active Start: July 19, 2024 End: July 19, 2024 Team Status: Inactive Member Role/Relationship Status Dates Marsha Mendez VSC, LICENSE CLERK-C Primary Care Provider Activ e Start: July 20, 2024 End: July 20, 2024 Marsha Liu VSC, LICENSE CLERK-C Referring Provider Active Start: July 20, 2024 End: July 20, 2024 Melissa Pickering LICENSE CLERK, LICENSE CLERK-C Attending Provider Active Start: July 20, 2024 End: July 20, 2024 Team Status: Inactive Member Role/Relationship Status Dates Marsha Mendez VSC, LICENSE CLERK-C Primary Care Provider Activ e Start: July 26, 2024 End: July 26, 2024 Marshadaniel Mendez VSC, LICENSE CLERK-C Referring Provider Active Start: July 26, 2024 End: July 26, 2024 Tamia Wooten LICENSE CLERK, LICENSE CLERK-C Attending Provider Active Start: July 26, 2024 End: July 26, 2024 Team Status: Inactive Member Role/Relationship Status Dates Marsha Liu VSC, LICENSE CLERK-C Primary Care Provider Activ e Start: August 05, 2024 End: August 05, 2024 Melsisa Pickering LICENSE CLERK, LICENSE CLERK-C Attending Provider Active Start: August 05, 2024 End: August 05, 2024 Melissa Pickering LICENSE CLERK, LICENSE CLERK-C Referring Provider Active Start: August 05, 2024 End: August 05, 2024 Team Status: Inactive Member Role/Relationship Status Dates Marsha Liu VSC, LICENSE CLERK-C Primary Care Provider Activ e Start: September 27, 2024 End: September 27, 2024 Melissa Pickering LICENSE CLERK, LICENSE CLERK-C Attending Provider Active Start: September 27, 2024 End: September 27, 2024 Melissa Pickering LICENSE CLERK, LICENSE CLERK-C Referring Provider Active Start: September 27, 2024 End: September 27, 2024 Team Status: Inactive Member Role/Relationship Status Dates Marsha Mendez VSC, LICENSE CLERK-C Primary Care Provider Activ e Start: October 06, 2024 End: October 06, 2024 Marsha Mendez VSC, LICENSE CLERK-C Referring Provider Active Start: October 06, 2024 End: October 06, 2024 Melissa Pickering LICENSE CLERK, LICENSE CLERK-C Attending Provider Active Start: October 06, 2024 End: October 06, 2024 Team Status: Inactive Member Role/Relationship Status Dates Marsha Liu VSC, LICENSE CLERK-C Primary Care Provider Activ e Start: October 06, 2024 End: October 06, 2024 Melissa Pickering LICENSE CLERK, LICENSE CLERK-C Attending Provider Active Start: October 06, 2024 End: October 06, 2024 Melissa Pickering LICENSE CLERK, LICENSE CLERK-C Referring Provider Active Start: October 06, 2024 End: October 06, 2024 Team Status: Active Member Role/Relationship Status Dates Marsha Liu VSC, LICENSE CLERK-C Primary Care Provider Activ e Start: November 03, 2024 Melissa Pickering LICENSE CLERK, LICENSE CLERK-C Attending Provider Active Start: November 03, 2024 Melissa Pickering LICENSE CLERK, LICENSE CLERK-C Referring Provider Active Start: November 03, 2024 Team Status: Active Member Role/Relationship Status Dates Marsha Mendez VSC, LICENSE CLERK-C Primary Care Provider Activ e Start: November 03, 2024 Dr. Italo Guerrero MD Referring Provider Active Sta rt: November 03, 2024 Dr. Italo Guerrero MD Emergency Provider Active Sta rt: November 03, 2024 Dr. Celia Modi MD Admit Provider Active Star t: November 03, 2024 Dr. Celia Modi MD Attending Provider Active Start: November 03, 2024 INFORMATION SOURCE (unrecogn ized section and content) DATE CREATED AUTHOR 10/30/2024 [facility] FOR RECORDS PERTAINING TO PATIENTS WHO ARE OR HAVE BEEN ENROLLED IN A CHEMICAL DEPENDENCY/SUBSTANCEABUSE PROGRAM, SOME INFORMATION MAY BE OMITTED. This clinical summary was aggregated from multiple sources. Caution should be exercised in using it in the provision of clinical care. This summary normalizes information from multiple sources, and as a consequence, information in this document may materially change the coding, format and clinical context of patient data. In addition, data may be omitted in some cases. CLINICAL DECISIONS SHOULD BE BASED ON THE PRIMARY CLINICAL RECORDS. [facility]. provides no warranty or guarantee of the accuracy or completeness of information in this document.
--- OUTSIDE RECORDS SUMMARY | 2024-11-03 20:22 | XMS RPT_ITS | CCD ---
Author Organization [facility] CliniSyme Care Team Providers Care Change Lead Name Role Phone [facility], [facility] Primary Care Pro vider Ladan FABRIC INSPECTOR, FABRIC INSPECTOR-C Melissa Attending Provider Dr. Sudeep Nicole Referring Provider [facility], [facility] Primary Care Pro vider Ladan FABRIC INSPECTOR, FABRIC INSPECTOR-C Melissa Attending Provider [phone] EDUAR Gaspar-C Cleopatra Referring Provider Dr. Jim Lama Attending Provider [facility] Referring Provid er Dr. Mars Pyle Attending Provider Dr. Mars Pyle Other Provider EDUAR Gaspar-C Cleopatra Other Provider [facility], [facility] Primary Care Pro vider [facility], [facility] Referring Provid er Dr. Mars Pyle Attending Provider Dr. Mars Pyle Other Provider Chasity, EDUAR-C Cleopatra Other Provider [phone] Ladan FABRIC INSPECTOR, FABRIC INSPECTOR-C Melissa Attending Provider EDUAR Gaspar-C Cleopatra Referring Provider [phone] [facility], [facility] Primary Care Pro vider [facility], [facility] Referring Provid er Ladan FABRIC INSPECTOR, FABRIC INSPECTOR-C Melissa Attending Provider [facility], [facility] Primary [facility] Emergency Department Pro vider [facility], [facility] Referring Provid er Dr. Jim Lama Attending Provider Pickering FABRIC INSPECTOR-C, Melissa Attending Provider Pickering FABRIC INSPECTOR-C, Melissa Referring Provider Liu FABRIC INSPECTOR-C, Marsha Primary Care Provider [facility], [facility] Referring Provid er Liu FABRIC INSPECTOR-C, Marsha Attending Provider Liu FABRIC INSPECTOR-C, Marsha Referring Provider Trinidad Short Attending Provider Unavailable Jamie GAITAN, Dr. Simeon Attending Provider Jamie GAITAN, Dr. Simeon Referring Provider Jamie GAITAN, Dr. Simeon Other Provider Liu FABRIC INSPECTOR-C, Marsha Primary Care Provider Ladan FABRIC INSPECTOR-C, Melissa Attending Provider Ladan FABRIC INSPECTOR-C, Melissa Referring Provider Je FABRIC INSPECTOR-C, Tamia Attending Provider Liu FABRIC INSPECTOR-C, Marsha Primary Care Provider Liu FABRIC INSPECTOR-C, Marsha Attending Provider Ladan FABRIC INSPECTOR, Melissa Referring Unavailable Liu, Marsha Primary Care Unavailable Ladan WITT, Melissa Attending Unavailable Blanco Hernandez Referring Unavailable Blanco Hernandez Attending Unavailable [facility] Primary Care Unavailable Blanco Ayala Referring Unavailable Blanco Ayala Attending Unavailable Liu, Marsha Primary Care Unavailable Ladan FABRIC INSPECTOR, Melissa Referring Unavailable Liu, Marsha Primary Care Unavailable Ladan FABRIC INSPECTOR, Melissa Attending Unavailable Liu, Marsha Primary Care Unavailable Liu, Marsha Attending Unavailable Liu, Marsah Referring Unavailable Liu, Marsha Attending Unavailable [facility], [facility] Primary Care Unavailable Ladan FABRIC INSPECTOR, Melissa Referring Unavailable Liu, Marsha Primary Care Unavailable Ladan FABRIC INSPECTOR, Melissa Attending Unavailable Liu, Marsha Primary Care Unavailable Ladan FABRIC INSPECTOR, Melissa Attending Unavailable Pickering FABRIC INSPECTOR, Melissa Referring Unavailable Hernandez, Blanco Referring Unavailable Hernnadez, Blanco Consulting Unavailable [facility], [facility] Primary Care Unavailable Asael Salter Attending Unavailable Pickering FABRIC INSPECTOR, Melissa Referring Unavailable Liu, Marsha Primary Care Unavailable Pickering FABRIC INSPECTOR, Melissa Attending Unavailable Pickering FABRIC INSPECTOR, Melissa Referring Unavailable Pickering FABRIC INSPECTOR, Melissa Attending Unavailable Liu, Marsha Primary Care Unavailable Liu, Marsha Attending Unavailable Liu, Marsha Primary Care Unavailable Liu, Marsha Referring Unavailable Liu, Marsha Primary Care Unavailable Pickering FABRIC INSPECTOR, Melissa Attending Unavailable Liu, Marsha Referring Unavailable Liu, Marsha Primary Care Unavailable Pickering FABRIC INSPECTOR, Melissa Attending Unavailable Liu, Marsha Referring Unavailable Liu, Marsha Primary Care Unavailable Je WITT, Tamia Attending Unavailable Hernandez, Blanco Attending [facility] Ref[facility] Unavailable [facility] Primary Care Unavailable Liu, Marsha Primary Care Unavailable Pickering FABRIC INSPECTOR, Melissa Attending Unavailable [facility], [facility] Referring Unavailable Liu, Amrsha Primary Care Unavailable Pickering FABRIC INSPECTOR, Melissa Attending Unavailable Liu, Marsha Referring Unavailable Liu, Marsha Primary Care Unavailable Trinidad Short Attending Unavailable Jamie, Blanco Referring Unavailable Bortz, Blanco Attending Unavailable Bortz, Blanco Consulting Unavailable Liu, Marsha Primary Care Unavailable Liu, Marsha Referring Unavailable Liu, Marsha Attending Unavailable Liu, Marsha Primary Care Unavailable Liu FABRIC INSPECTOR-C, Marsha Primary Care Provider Liu FABRIC INSPECTOR-C, Marsha Attending Provider Liu FABRIC INSPECTOR-C, Marsha Referring Provider Pickering FABRIC INSPECTOR-C, Melissa Attending Provider Pickering FABRIC INSPECTOR-C, Melissa Referring Provider Dr. Italo Guerrero MD Referring Provider Dr. Italo Guerrero MD Emergency Provider Rian GAITAN, Dr. Yang Admit Provider Rian GAITAN, Dr. Yang Attending Provider Allergies Allergy Classification Reported Allergen(s) Allergy Type Date of Onset Reaction(s) Facility (20 sources) Penicillin G Drug Allergy 05-14-2021 [facility] (1 source) Penicillin Drug Allergy 10-06-2024 [facility] Repository (1 source) Penicillins Allergy to substance 11-03-2024 Hives [facility] Medications Current Medications Medication Drug Class(es) Dates Sig (Normalized) Sig (Original) [id number] 200 actuat albuterol 0.09 mg/actuat metered dose [...] Auto (Unsp spec) [#/Vol] 2.05 10*3/uL 0.83-4.51 [facility] Absolute lymphocyte countOrd ered By: Pete Bartholomew on 11-03-2024 Lymphocytes Auto (Unsp spec) [#/Vol] 1.59 10*3/uL 0.83-4.51 [facility] Absolute neutrophil countOrd ered By: Italo Guerrero on 11-03-2024 Neutrophils (Bld) [#/Vol] 8.8 10*3/uL High 2.0-7.7 [facility] Absolute neutrophil countOrd ered By: Pete Bartholomew on 11-03-2024 Neutrophils (Bld) [#/Vol] 6.5 10*3/uL 2.0-7.7 [facility] Activated partial thrombopla stin time (aPTT) in platelet poor plasma by coagulation aOrdered By: Italo Guerrero on 11-03-2024 aPTT Coag (PPP) [Time] 26.4 s 24.1-36.2 [facility] Activated partial thrombopla stin time (aPTT) in platelet poor plasma by coagulation aOrdered By: Pete Bartholomew on 11-03-2024 aPTT Coag (PPP) [Time] 26.6 s 24.1-36.2 [facility] Anion gap in Serum or Plasma Ordered By: Italo Guerrero on 11-03-2024 Anion gap [Moles/Vol] 14 mmol/L 5-15 [facility] Automated lymphocyte count a s percentage of total leukocytesOrdered By: Italo Guerrero on 11-03-2024 Lymphocytes/100 WBC Auto (Unsp spec) 16.3 % Low 19-41 [facility] BUN/creatinine ratioOrdered By: Italo Guerrero on 11-03-2024 Urea nitrogen/Creatinine [Mass ratio] 16.4 mg/mg 10-20 [facility] Basophil percentageOrdered B y: Italo Guerrero on 11-03-2024 Basophils/100 WBC (Bld) 0.8 % 0-1 [facility] Basophil percentageOrdered B y: Pete Bartholomew on 11-03-2024 Basophils/100 WBC (Bld) 1.2 % High 0-1 [facility] Blood platelets count (numbe r/volume)Ordered By: Pete Bartholomew on 11-03-2024 Platelets (Bld) [#/Vol] 306 10*3/uL 150-450 [facility] Carbon dioxide, total [Moles /volume] in Central venous bloodOrdered By: Italo Guerrero on 11-03-2024 CO2 [Moles/Vol] 19.5 mmol/L Low 21.0-32.0 [facility] Chloride assayOrdered By: Ug o Guerrero on 11-03-2024 Chloride [Moles/Vol] 106 mmol/L 98-108 [facility] Eosinophil %Ordered By: Jose Bartholomew on 11-03-2024 Eosinophils/100 WBC (Bld) 5.0 % 0-5 [facility] Eosinophil percentageOrdered By: Italo Guerrero on 11-03-2024 Eosinophils/100 WBC (Bld) 3.7 % 0-5 [facility] Erythrocyte distribution wid th ratioOrdered By: Italo Guerrero on 11-03-2024 Erythrocyte distribution width (RBC) [Ratio] 13.7 % 11.6-14.6 [facility] Erythrocyte distribution wid th ratioOrdered By: Pete Bartholomew on 11-03-2024 Erythrocyte distribution width (RBC) [Ratio] 33.0 % High 11.6-14.6 [facility] Erythrocyte distribution wid th standard deviationOrdered By: Italo Guerrero on 11-03-2024 Erythrocyte distribution width (RBC) [Ratio] 43.3 fl 35.1-43.9 [facility] Glomerular filtration rate ( GFR) estimation/1.73 sq m using serum, plasma, or whole bOrdered By: Italo Guerrero on 11-03-2024 GFR/1.73 sq M.predicted among non-blacks MDRD (S/P/Bld) [Vol rate/Area] 69 mL/min/{1.73_m2} >60 [facility] Comment on above: mL/min/1.73m2 CKD-EP I Creatinine Equation (2020) Hematocrit Auto (Bld) [Volum e fraction]Ordered By: Italo Guerrero on 11-03-2024 Hematocrit (Bld) [Volume fraction] 35.2 % Low 37-47 [facility] Hematocrit Auto (Bld) [Volum e fraction]Ordered By: Pete Bartholomew on 11-03-2024 Hematocrit (Bld) [Volume fraction] 36.7 % Low 37-47 [facility] Hemoglobin measurementOrdere d By: Italo Guerrero on 11-03-2024 Hemoglobin (Bld) [Mass/Vol] 11.6 g/dL Low 12.0-15.0 [facility] Hemoglobin measurementOrdere d By: Pete Bartholomew on 11-03-2024 Hemoglobin (Bld) [Mass/Vol] 12.1 g/dL 12.0-15.0 [facility] Immature granulocyte percent ageOrdered By: Pete Bartholomew on 11-03-2024 Immature granulocytes/100 WBC (Bld) 0.200 % 0.0-0.9 [facility] Comment on above: IG% - Immature Granu locytes (promyelocytes, myelocytes and metamyelocytes) > 1% indicates that a LEFT SHIFT is Present. Immature granulocytes/100 WB C Auto (Bld)Ordered By: Italo Guerrero on 11-03-2024 Immature granulocytes/100 WBC (Bld) 0.400 % 0.0-0.9 [facility] Comment on above: IG% - Immature Granu locytes (promyelocytes, myelocytes and metamyelocytes) > 1% indicates that a LEFT SHIFT is Present. International normalized rat io (INR) calculationOrdered By: Italo Guerrero on 11-03-2024 INR Coag (Bld) [Relative time] 1.1 {INR} [facility] International normalized rat io (INR) calculationOrdered By: Pete Bartholomew on 11-03-2024 INR Coag (Bld) [Relative time] 1.2 {INR} [facility] Lactic acid measurementOrder ed By: Italo Guerrero on 11-03-2024 Lactate [Moles/Vol] mmol/L 0.0-2.0 [facility] Lymphocyte %Ordered By: Jose Bartholomew on 11-03-2024 Lymphocytes/100 WBC (Bld) 16.8 % Low 19-41 [facility] MCV (mean corpuscular volume ) determinationOrdered By: Italo Guerrero on 11-03-2024 MCV (RBC) [Entitic vol] 86.3 fL 81-99 [facility] MCV (mean corpuscular volume ) determinationOrdered By: Pete Bartholomew on 11-03-2024 MCV (RBC) [Entitic vol] 86.8 fL 81-99 [facility] Mean corpuscular hemoglobin (MCH) determinationOrdered By: Italo Guerrero on 11-03-2024 MCH (RBC) [Entitic mass] 28.4 pg 27.0-32.0 [facility] Mean corpuscular hemoglobin (MCH) determinationOrdered By: Pete Bartholomew on 11-03-2024 MCH (RBC) [Entitic mass] 28.6 pg 27.0-32.0 [facility] Mean corpuscular hemoglobin concentration (MCHC) determinationOrdered By: Italo Guerrero on 11-03-2024 MCHC (RBC) [Mass/Vol] 33.0 g/dL 32-36 [facility] Mean platelet volume determi nationOrdered By: Italo Guerrero on 11-03-2024 Platelet mean volume (Bld) [Entitic vol] 10.5 fL 6.2-12.0 [facility] Mean platelet volume determi nationOrdered By: Pete Bartholomew on 11-03-2024 Platelet mean volume (Bld) [Entitic vol] 10.3 fL 6.2-12.0 [facility] Monocyte percentageOrdered B y: Italo Guerrero on 11-03-2024 Monocytes/100 WBC (Bld) 8.6 % 0-10 [facility] Monocyte percentageOrdered B y: Pete Bartholomew on 11-03-2024 Monocytes/100 WBC (Bld) 8.7 % 0-10 [facility] Natriuretic peptide.B prohor matteo N-Terminal [Mass/volume] in Serum or PlasmaOrdered By: Celia Modi on 11-03-2024 Natriuretic peptide.B prohormone N-Terminal [Mass/Vol] 412 pg/mL <900 [facility] Comment on above: Heart Failure Unlike ly: < 300 pg/mLHeart Failure Likely< 50 Years: > 450 pg/mL50-75 Years: > 900 pg/mL>75 Years: > 1800 pg/mL Neutrophil %Ordered By: Jsoe Bartholomew on 11-03-2024 Neutrophils/100 WBC (Bld) 68.1 % 47-70 [facility] Neutrophil percentageOrdered By: Italo Guerrero on 11-03-2024 Neutrophils/100 WBC (Bld) 70.2 % High 47-70 [facility] Nucleated red blood cell per centageOrdered By: Italo Guerrero on 11-03-2024 Nucleated RBC/100 WBC (Bld) [Ratio] 0 % 0-5 [facility] Platelet countOrdered By: Azul Guerrero on 11-03-2024 Platelets (Bld) [#/Vol] 282 10*3/uL 150-450 [facility] Potassium measurement (mass/ volume)Ordered By: Italo Guerrero on 11-03-2024 Potassium (Unsp spec) [Mass/Vol] 4.6 mmol/L 3.3-5.1 [facility] Comment on above: Hemolysis present, R esults could be affected. Prothrombin timeOrdered By: Italo Guerrero on 11-03-2024 PT Coag (PPP) [Time] 14.5 s 11.7-14.9 [facility] Prothrombin timeOrdered By: Pete Bartholomew on 11-03-2024 PT Coag (PPP) [Time] 15.2 s High 11.7-14.9 [facility] RBC Auto (Bld) [#/Vol]Ordere d By: Italo Cesar on 11-03-2024 RBC (Bld) [#/Vol] 4.08 10*6/uL Low 4.2-5.4 [facility] RBC Auto (Bld) [#/Vol]Ordere d By: Pete Bartholomew on 11-03-2024 RBC (Bld) [#/Vol] 4.23 10*6/uL 4.2-5.4 [facility] RDWOrdered By: Pete camilo on 11-03-2024 RDW 42.7 fl 35.1-43.9 [facility] Serum creatinine measurement (mass/volume)Ordered By: Italo Guerrero on 11-03-2024 Creatinine [Mass/Vol] 0.92 mg/dL 0.70-1.20 [facility] Serum glucose measurement (m ass/volume)Ordered By: Itlao Guerrero on 11-03-2024 Glucose [Mass/Vol] 84 mg/dL 70-99 [facility] Serum or plasma calcium abdi urement (mass/volume)Ordered By: Italo Guerrero on 11-03-2024 Calcium [Mass/Vol] 9.1 mg/dL 7.6-11.0 [facility] Serum or plasma urea nitroge n measurement (mass/volume)Ordered By: Italo Guerrero on 11-03-2024 Urea nitrogen [Mass/Vol] 15 mg/dL 4-19 [facility] Sodium levelOrdered By: Italo Guerrero on 11-03-2024 Sodium [Moles/Vol] 140 mmol/L 133-145 [facility] Troponin T.cardiac [Mass/vol ume] in Serum or Plasma by High sensitivity methodOrdered By: Celia Modi on 11-03-2024 Troponin T.cardiac High sensitivity method [Mass/Vol] 25 ng/L High <14 [facility] White blood cell (WBC) count Ordered By: Italo Guerrero on 11-03-2024 WBC (Bld) [#/Vol] 12.6 10*3/uL High 4.4-11.0 [facility] White blood cell (WBC) count Ordered By: Pete Bartholomew on 11-03-2024 WBC (Bld) [#/Vol] 9.5 10*3/uL 4.4-11.0 [facility] Activated partial thrombopla stin time (aPTT) in platelet poor plasma by coagulation aOrdered By: Melissa Pickering on 10-06-2024 aPTT Coag (PPP) [Time] 24.0 s Low 24.1-36.2 [facility] International normalized rat io (INR) calculationOrdered By: Melissa Pickering on 10-06-2024 INR Coag (Bld) [Relative time] 1.0 {INR} [facility] Partial Thromboplast Timeon 10-06-2024 aPTT Coag (Bld) [Time] 24.0 s Low 24.1-36.2 [facility] Comment on above: Performed By: #### L 300.4310, L100.1900, L300.3900 ####[facility] [address] [place], [address] Platelet Counton 10-06-2024 Platelets (Bld) [#/Vol] 346 10*3/uL Normal 150-450 [facility] Comment on above: Performed By: #### L 300.4310, L100.1900, L300.3900 #### [facility] [address] [place], [address] Platelet countOrdered By: Odilon Pickering on 10-06-2024 Platelets (Bld) [#/Vol] 346 10*3/uL [address] [place] [address] Prothrombin Time w/INRon INR Coag (PPP) [Relative time] 1.0 {INR} Normal [facility] Comment on above: Performed By: #### L 300.4310, L100.1900, L300.3900 #### [facility] [address] [place], [address] PT Coag (PPP) [Time] 13.6 s Normal 11.7-14.9 [facility] Comment on above: Performed By: #### L 300.4310, L100.1900, L300.3900 #### [facility] [address] [place], [address] Prothrombin timeOrdered By: Melissa Pickering on 10-06-2024 PT Coag (PPP) [Time] 13.6 s 11.7-14.9 [facility] Pulmonary Visit Reporton Pulmonary Visit Report [facility] [place] [address] [place] [address] OFFICE VISIT Date of Service: 10/06/24 MR#: [id number] Acct: [id number] Name: MARY AGUILERA Rep #: [id number] : 1960 Provider: IRWIN Pickering Age/Sex: 64/F Location: [facility] Status: Signed Assessment and Plan Assessment and [...] Additional Comments: This note was generated with [employer] dictation software. It may contain incorrect words, [...] 3 M FU Chief Complaint: discuss EGD Geographic Information Systems Director Required: No DME Vendor: Blaise Accompanied by: Self Is patie (more content not included)... Normal [facility] Chest without Contraston Chest without Contrast [facility] Imaging Services [address] [place], [place] [address] Chest without Contrast MR#: [id number] Acct: [id number] Name: MARY AGUILERA Rep #: [id number] : 1960 F 64 From: Marco yang MD PCP: SLOAN Vaca, FABRIC INSPECTOR-C Status: REG CLI Study: Chest without Contrast Date of Exam: 09/27/24 Exam# [id number] Ordering Dr: Melissa Pickering NP FABRIC INSPECTOR-C PROCEDURE: CHEST WITHOUT CONTRAST 09/27/2024 REASON FOR [...] A PET/CT scan is recommended. Reading [facility] CC: IRWIN Pickering; [facility] IRWIN Mendez Whitewasher: Signed Normal [facility] Cardiology Visit Reporton Cardiology Visit Report [facility] [address] [place] [address] OFFICE VISIT Date of Service: 07/26/24 MR#: [id number] Acct: [id number] Name: MARY AGUILERA Rep #: [id number] : 1960 Provider: IRWIN cole Age/Sex: 63/F Location: [facility] [place] [facility] Status: Signed HPI HPI History [...] she does smoke and has about a 38-vntw-ogud smoking history. There is no family history [...] 94 Intake Visit Reasons: 6 M FU Geographic Information Systems Director Required: No Is patient in pain?: No [...] history: , Just moved back from the [facility] ROS Const Const: Negative for fatigue, weakness, headache(s) or frequent falls Eyes (more content not included)... Normal [facility] Pulmonary Visit Reporton Pulmonary Visit Report [facility] Pulmonary Medicine of [address] [place] [address] OFFICE VISIT Date of Service: 07/20/24 MR#: [id number] Acct: [id number] Name: MARY AGUILERA Rep #: [id number] : 1960 Provider: IRWIN Pickering Age/Sex: 63/F Location: [facility] Status: Signed Assessment and Plan Assessment and [...] Additional Comments: This note was generated with [employer] dictation software. It may contain incorrect words, spelling, and punctuation that were not noted in checking the note before signing. Follow Up: 09/20/24 ([facility]) HPI 4 M FU Chief Complaint: Test [...] 4 M FU Chief Complaint: discuss EGD Geographic Information Systems Director Required: No DME Vendor: Blaise Accompanied by: [...] PO BID (more content not included)... Normal [facility] Absolute lymphocyte countOrd ered By: [facility] Marsha Mendez on 07-19-2024 Lymphocytes Auto (Unsp spec) [#/Vol] 1.91 10*3/uL 0.83-4.51 [facility] Absolute neutrophil countOrd ered By: [facility] Marsha Mendez on 07-19-2024 Neutrophils (Bld) [#/Vol] 5.9 10*3/uL 2.0-7.7 [facility] Anion gap in Serum or Plasma Ordered By: [facility] Marsha Liu on 07-19-2024 Anion gap [Moles/Vol] 11 mmol/L 5- [facility] Automated lymphocyte count a s percentage of total leukocytesOrdered By: [facility] Marsha Liu on 07-19-2024 Lymphocytes/100 WBC Auto (Unsp spec) 21.3 % - [facility] BUN/creatinine ratioOrdered By: [facility] on 07-19-2024 Urea nitrogen/Creatinine [Mass ratio] 15.1 mg/mg 10- [facility] Basophil percentageOrdered B y: [facility] Marsha Liu on 07-19-2024 Basophils/100 WBC (Bld) 0.7 % 0-1 [facility] Bilirubin, totalOrdered By: [facility] Marsha Liu on 07-19-2024 Bilirubin [Mass/Vol] 0.57 mg/dL 0.00-1.30 [facility] CBC W/Diff, Automatedon 06-22 Absolute Lymph 1.91 X10 3/uL Normal 0.83-4.51 [facility] Comment on above: Performed By: #### L 501.9520, L501.5200, L100.0100, L506.1001, L500.4100, L500.4050 ####[facility] [address] [place], [address] Absolute Neut 5.9 X10 3/uL Normal 2.0-7.7 [facility] Comment on above: Performed By: #### L 501.9520, L501.5200, L100.0100, L506.1001, L500.4100, L500.4050 ####[facility] [address] [place], [address] Basophils/100 WBC (Bld) 0.7 % Normal 0-1 [facility] Comment on above: Performed By: #### L 501.9520, L501.5200, L100.0100, L506.1001, L500.4100, L500.4050 ####[facility] [address] [place], [address] Eosinophils/100 WBC (Bld) 2.8 % Normal 0-5 [facility] Comment on above: Performed By: #### L 501.9520, L501.5200, L100.0100, L506.1001, L500.4100, L500.4050 ####[facility] [address] [place], [address] Erythrocyte distribution width (RBC) [Ratio] 13.2 % Normal 11.6-14.6 [facility] Comment on above: Performed By: #### L 501.9520, L501.5200, L100.0100, L506.1001, L500.4100, L500.4050 ####[facility] [address] [place], [address] Hematocrit (Bld) [Volume fraction] 39.6 % Normal 37-47 [facility] Comment on above: Performed By: #### L 501.9520, L501.5200, L100.0100, L506.1001, L500.4100, L500.4050 ####[facility] [address] [place], [address] Hemoglobin (Bld) [Mass/Vol] 13.0 g/dL Normal 12.0-15.0 [facility] Comment on above: Performed By: #### L 501.9520, L501.5200, L100.0100, L506.1001, L500.4100, L500.4050 ####[facility] [address] [place], [address] IG% 0.200 Normal 0.0-0.9 [facility] Comment on above: Result Comment: IG% - Immature Granulocytes (promyelocytes, myelocytes and metamyelocytes) > 1% indicates that a LEFT SHIFT is Present. Performed By: #### L 501.9520, L501.5200, L100.0100, L506.1001, L500.4100, L500.4050 ####[facility] [address] [place], [address] Lymphocytes/100 WBC (Bld) 21.3 % Normal 19-41 [facility] Comment on above: Performed By: #### L 501.9520, L501.5200, L100.0100, L506.1001, L500.4100, L500.4050 ####[facility] [address] [place], [address] MCH (RBC) [Entitic mass] 29.3 pg Normal 27.0-32.0 [facility] Comment on above: Performed By: #### L 501.9520, L501.5200, L100.0100, L506.1001, L500.4100, L500.4050 ####[facility] [address] [place], [address] MCHC (RBC) [Mass/Vol] 32.8 g/dL Normal 32-36 [facility] Comment on above: Performed By: #### L 501.9520, L501.5200, L100.0100, L506.1001, L500.4100, L500.4050 ####[facility] [address] [place], [address] MCV (RBC) [Entitic vol] 89.2 fL Normal 81-99 [facility] Comment on above: Performed By: #### L 501.9520, L501.5200, L100.0100, L506.1001, L500.4100, L500.4050 ####[facility] [address] [place], [address] Monocytes/100 WBC (Bld) 9.4 % Normal 0-10 [facility] Comment on above: Performed By: #### L 501.9520, L501.5200, L100.0100, L506.1001, L500.4100, L500.4050 ####[facility] [address] [place], [address] Neutrophils/100 WBC (Bld) 65.6 % Normal 47-70 [facility] Comment on above: Performed By: #### L 501.9520, L501.5200, L100.0100, L506.1001, L500.4100, L500.4050 ####[facility] [address] [place], [address] Nucleated RBC (Bld) [#/Vol] 0 10*3/uL Normal 0-5 [facility] Comment on above: Performed By: #### L 501.9520, L501.5200, L100.0100, L506.1001, L500.4100, L500.4050 ####[facility] [address] [place], [address] Platelet mean volume (Bld) [Entitic vol] 10.2 fL Normal 6.2-12.0 [facility] Comment on above: Performed By: #### L 501.9520, L501.5200, L100.0100, L506.1001, L500.4100, L500.4050 ####[facility] [address] [place], [address] Platelets (Bld) [#/Vol] 321 10*3/uL Normal 150-450 [facility] Comment on above: Performed By: #### L 501.9520, L501.5200, L100.0100, L506.1001, L500.4100, L500.4050 ####[facility] [address] [place], [address] RBC (Bld) [#/Vol] 4.44 10*6/uL Normal 4.2-5.4 [facility] Comment on above: Performed By: #### L 501.9520, L501.5200, L100.0100, L506.1001, L500.4100, L500.4050 ####[facility] [address] [place], [address] RDW SD 43.7 fl Normal 35.1-43.9 [facility] Comment on above: Performed By: #### L 501.9520, L501.5200, L100.0100, L506.1001, L500.4100, L500.4050 ####[facility] [address] [place], [place], [id number]) WBC (Bld) [#/Vol] 9.0 10*3/uL Normal 4.4-11.0 [facility] Comment on above: Performed By: #### L 501.9520, L501.5200, L100.0100, L506.1001, L500.4100, L500.4050 ####[facility] [address] [place], [place], [id number] Calculated very low density lipoprotein (VLDL) cholesterol measurementOrdered By: [facility] Marsha Mendez on 07-19-2024 Calculated very low density lipoprotein (VLDL) cholesterol measurement 14 mg/dL 5-40 [facility] Carbon dioxide, total [Moles /volume] in Central venous bloodOrdered By: [facility] Marsha Mendez on 07-19-2024 CO2 [Moles/Vol] 22.5 mmol/L 21.0-32.0 [facility] Chloride assayOrdered By: [facility] Marsha Mendez on 07-19-2024 Chloride [Moles/Vol] 105 mmol/L 98-108 [facility] Comprehensive Metabolic Prof ilon 07-19-2024 Albumin [Mass/Vol] 4.4 g/dL Normal 3.4-4.8 [facility] Comment on above: Performed By: #### L 501.9520, L501.5200, L100.0100, L506.1001, L500.4100, L500.4050 ####[facility] [address] [place], [address] Albumin/Globulin [Mass ratio] 1.4 {ratio} Normal 0.9-2.4 [facility] Comment on above: Performed By: #### L 501.9520, L501.5200, L100.0100, L506.1001, L500.4100, L500.4050 ####[facility] [address] [place], [address] ALK PHOS 79 U/L Normal 35-104 [facility] Comment on above: Performed By: #### L 501.9520, L501.5200, L100.0100, L506.1001, L500.4100, L500.4050 ####[facility] [address] [place], [address] ALT [Catalytic activity/Vol] 16 U/L Normal <=34 [facility] Comment on above: Performed By: #### L 501.9520, L501.5200, L100.0100, L506.1001, L500.4100, L500.4050 ####[facility] [address] [place], [address] AST [Catalytic activity/Vol] 22 U/L Normal <=31 [facility] Comment on above: Performed By: #### L 501.9520, L501.5200, L100.0100, L506.1001, L500.4100, L500.4050 ####[facility] [address] [place], [address] Bilirubin [Mass/Vol] 0.57 mg/dL Normal 0.00-1.30 [facility] Comment on above: Performed By: #### L 501.9520, L501.5200, L100.0100, L506.1001, L500.4100, L500.4050 ####[facility] [address] [place], [address] BUN/CRE 15.1 RATIO Normal 10-20 [facility] Comment on above: Performed By: #### L 501.9520, L501.5200, L100.0100, L506.1001, L500.4100, L500.4050 ####[facility] [address] [place], [address] Calcium [Mass/Vol] 9.5 mg/dL Normal 7.6-11.0 [facility] Comment on above: Performed By: #### L 501.9520, L501.5200, L100.0100, L506.1001, L500.4100, L500.4050 ####[facility] [address] [place], [address] Chloride [Moles/Vol] 105 mmol/L Normal 98-108 [facility] Comment on above: Performed By: #### L 501.9520, L501.5200, L100.0100, L506.1001, L500.4100, L500.4050 ####[facility] [address] [place], [address] CO2 [Moles/Vol] 22.5 mmol/L Normal 21.0-32.0 [facility] Comment on above: Performed By: #### L 501.9520, L501.5200, L100.0100, L506.1001, L500.4100, L500.4050 ####[facility] [address] [place], [address] Creatinine [Mass/Vol] 0.96 mg/dL Normal 0.70-1.20 [facility] Comment on above: Performed By: #### L 501.9520, L501.5200, L100.0100, L506.1001, L500.4100, L500.4050 ####[facility] [address] [place], [address] GAP 11 Normal 5-15 [facility] Comment on above: Performed By: #### L 501.9520, L501.5200, L100.0100, L506.1001, L500.4100, L500.4050 ####[facility] [address] [place], [address] GFR/1.73 sq M.predicted among non-blacks MDRD (S/P/Bld) [Vol rate/Area] 66 mL/min/{1.73_m2} Normal >60 [facility] Comment on above: Result Comment: mL/m in/1.73m2 CKD-EPI Creatinine Equation (2020) Performed By: #### L 501.9520, L501.5200, L100.0100, L506.1001, L500.4100, L500.4050 ####[facility] [address] [place], [address] Globulin (S) [Mass/Vol] 3.1 g/dL Normal 2.2-4.2 [facility] Comment on above: Performed By: #### L 501.9520, L501.5200, L100.0100, L506.1001, L500.4100, L500.4050 ####[facility] [address] [place], [address] Glucose [Mass/Vol] 95 mg/dL Normal 70-99 [facility] Comment on above: Performed By: #### L 501.9520, L501.5200, L100.0100, L506.1001, L500.4100, L500.4050 ####[facility] [address] [place], [address] Potassium [Moles/Vol] 4.2 mmol/L Normal 3.3-5.1 [facility] Comment on above: Performed By: #### L 501.9520, L501.5200, L100.0100, L506.1001, L500.4100, L500.4050 ####[facility] [address] [place], [address] Sodium [Moles/Vol] 139 mmol/L Normal 133-145 [facility] Comment on above: Performed By: #### L 501.9520, L501.5200, L100.0100, L506.1001, L500.4100, L500.4050 ####[facility] [address] [place], [address] T PROT 7.5 g/dL Normal 5.9-8.4 [facility] Comment on above: Performed By: #### L 501.9520, L501.5200, L100.0100, L506.1001, L500.4100, L500.4050 ####[facility] [address] [place], [address] Urea nitrogen [Mass/Vol] 14 mg/dL Normal 4-19 [facility] Comment on above: Performed By: #### L 501.9520, L501.5200, L100.0100, L506.1001, L500.4100, L500.4050 ####[facility] [address] [place], [address] Eosinophil percentageOrdered By: [facility] Marsha Mendez on 07-19-2024 Eosinophils/100 WBC (Bld) 2.8 % 0-5 [facility] Erythrocyte distribution wid th ratioOrdered By: [facility] Marsha Mendez on 07-19-2024 Erythrocyte distribution width (RBC) [Ratio] 13.2 % 11.6-14.6 [facility] Erythrocyte distribution wid th standard deviationOrdered By: [facility] Marsha Mendez on 07-19-2024 Erythrocyte distribution width (RBC) [Ratio] 43.7 fl 35.1-43.9 [facility] Glomerular filtration rate ( GFR) estimation/1.73 sq m using serum, plasma, or whole bOrdered By: [facility] Marsha Mendez on 07-19-2024 GFR/1.73 sq M.predicted among non-blacks MDRD (S/P/Bld) [Vol rate/Area] 66 mL/min/{1.73_m2} >60 [facility] Comment on above: mL/min/1.73m2 CKD-EP I Creatinine Equation (2020) Hematocrit Auto (Bld) [Volum e fraction]Ordered By: [facility] Marsha Mendez on 07-19-2024 Hematocrit (Bld) [Volume fraction] 39.6 % 37-47 [facility] Hemoglobin measurementOrdere d By: [facility] Marsha Mendez on 07-19-2024 Hemoglobin (Bld) [Mass/Vol] 13.0 g/dL 12.0-15.0 [facility] Immature granulocytes/100 WB C Auto (Bld)Ordered By: [facility] Marsha Mendez on 07-19-2024 Immature granulocytes/100 WBC (Bld) 0.200 % 0.0-0.9 [facility] Comment on above: IG% - Immature Granu locytes (promyelocytes, myelocytes and metamyelocytes) > 1% indicates that a LEFT SHIFT is Present. LDL calc ser/plasOrdered By: [facility] Marsha Mendez on 07-19-2024 Cholesterol in LDL [Mass/Vol] 88 mg/dL [facility] Comment on above: Vdsxaytiqw=024-040 m g/dL & Higher Yqrg=419 mg/dL or greater Laboratory - Chemistry and C hemistry - challengeOrdered By: [facility] Marsha Mendez on 07-19-2024 AST [Catalytic activity/Vol] 22 U/L <32 [facility] Lipid Profileon 07-19-2024 CHOL:HDL 3.23 Normal [facility] Comment on above: Performed By: #### L 501.9520, L501.5200, L100.0100, L506.1001, L500.4100, L500.4050 ####[facility] [address] [place], [address] Cholesterol [Mass/Vol] 148 mg/dL Normal <=200 [facility] Comment on above: Result Comment: Chol esterol level, Desirable <200 mg/dL Borderline high cholesterol 200-239 mg/dL High cholesterol >=240 mg/dL Recommendations of the NCEP Adult Treatment Panel for the following risk-cutoff thresholds for the [place] population. Performed By: #### L 501.9520, L501.5200, L100.0100, L506.1001, L500.4100, L500.4050 ####[facility] [address] [place], [address] Cholesterol in HDL [Mass/Vol] 46 mg/dL Normal [facility] Comment on above: Result Comment: Venita onal Cholesterol Education Program (NCEP) guidelines: <40 mg/dL: Low HDL-cholesterol (major risk factor for CHD) >= 60 mg/dL: High HDL-cholesterol (negative risk factor for CHD) HDL-cholesterol is affected by a number of factors, e.g. smoking, exercise, hormones, sex and age. Performed By: #### L 501.9520, L501.5200, L100.0100, L506.1001, L500.4100, L500.4050 ####[facility] [address] [place], [address] Cholesterol in LDL [Mass/Vol] 88 mg/dL Normal [facility] Comment on above: Result Comment: Bord nzhkkk=510-911 mg/dL Higher Hzow=308 mg/dL or greater Performed By: #### L 501.9520, L501.5200, L100.0100, L506.1001, L500.4100, L500.4050 ####[facility] [address] [place], [address] Cholesterol in VLDL [Mass/Vol] 14 mg/dL Normal 5-40 [facility] Comment on above: Performed By: #### L 501.9520, L501.5200, L100.0100, L506.1001, L500.4100, L500.4050 ####[facility] [address] [place], [address] Triglyceride [Mass/Vol] 72 mg/dL Normal [facility] Comment on above: Result Comment: The drugs N-Acetylcysteine and Metamizole may falsely depress this assay. Normal range: <150 mg/dL Borderline High: 150-199 mg/dL High: 200-499 mg/dL Very High: >500 mg/dL Performed By: #### L 501.9520, L501.5200, L100.0100, L506.1001, L500.4100, L500.4050 ####[facility] [address] [place], [address] MCV (mean corpuscular volume ) determinationOrdered By: [facility] Marsha Mendez on 07-19-2024 MCV (RBC) [Entitic vol] 89.2 fL 81-99 [facility] Magnesiumon 07-19-2024 Magnesium [Mass/Vol] 2.3 mg/dL High 1.5-2.2 [facility] Comment on above: Performed By: #### L 501.9520, L501.5200, L100.0100, L506.1001, L500.4100, L500.4050 ####[facility] [address] [place], [address] Magnesium measurement (mass/ volume)Ordered By: [facility] Marsha Mendez on 07-19-2024 Magnesium (Unsp spec) [Mass/Vol] 2.3 mg/dL High 1.5-2.2 [facility] Mean corpuscular hemoglobin (MCH) determinationOrdered By: [facility] Marsha Mendez on 07-19-2024 MCH (RBC) [Entitic mass] 29.3 pg 27.0-32.0 [facility] Mean corpuscular hemoglobin concentration (MCHC) determinationOrdered By: [facility] Marsha Mendez on 07-19-2024 MCHC (RBC) [Mass/Vol] 32.8 g/dL 32-36 [facility] Mean platelet volume determi nationOrdered By: [facility] Marsha Mendez on 07-19-2024 Platelet mean volume (Bld) [Entitic vol] 10.2 fL 6.2-12.0 [facility] Monocyte percentageOrdered B y: [facility] Marsha Mendez on 07-19-2024 Monocytes/100 WBC (Bld) 9.4 % 0-10 [facility] Neutrophil percentageOrdered By: [facility] Marsha Mendez on 07-19-2024 Neutrophils/100 WBC (Bld) 65.6 % 47-70 [facility] Nucleated red blood cell per centageOrdered By: [facility] Marsha Mendez on 07-19-2024 Nucleated RBC/100 WBC (Bld) [Ratio] 0 % 0-5 [facility] Platelet countOrdered By: [facility] Marsha Mendez on 07-19-2024 Platelets (Bld) [#/Vol] 321 10*3/uL 150-450 [facility] Potassium measurement (mass/ volume)Ordered By: [facility] Marsha Mendez on 07-19-2024 Potassium (Unsp spec) [Mass/Vol] 4.2 mmol/L 3.3-5.1 [facility] RBC Auto (Bld) [#/Vol]Ordere d By: [facility] Marsha Mendez on 07-19-2024 RBC (Bld) [#/Vol] 4.44 10*6/uL 4.2-5.4 [facility] Screening total cholesterol/ high density lipoprotein (HDL) cholesterol ratioOrdered By: [facility] Marsha Mendez on 07-19-2024 Cholesterol.total/Chol esterol in HDL [Mass ratio] 3.23 {ratio} [facility] Serum creatinine measurement (mass/volume)Ordered By: [facility] Marsha Mendez on 07-19-2024 Creatinine [Mass/Vol] 0.96 mg/dL 0.70-1.20 [facility] Serum globulin measurementOr dered By: [facility] Marsha Mendez on 07-19-2024 Globulin (S) [Mass/Vol] 3.1 g/dL 2.2-4.2 [facility] Serum glucose measurement (m ass/volume)Ordered By: [facility] Marsha Mendez on 07-19-2024 Glucose [Mass/Vol] 95 mg/dL 70-99 [facility] Serum or plasma alanine dow otransferase (ALT) measurementOrdered By: [facility] Marsha Mendez on 07-19-2024 ALT [Catalytic activity/Vol] 16 U/L <35 [facility] Serum or plasma albumin abdi urement (mass/volume)Or[facility] By: [facility] on 07-19-2024 Albumin [Mass/Vol] 4.4 g/dL 3.4-4.8 [facility] Serum or plasma albumin/glob ulin mass ratioOrdered By: [facility] on 07-19-2024 Albumin/Globulin [Mass ratio] 1.4 {ratio} 0.9-2.4 [facility] Serum or plasma alkaline donovan sphatase measurementOrdered By: [facility] 07-19-2024 ALP [Catalytic activity/Vol] 79 U/L 35-104 [facility] Serum or plasma calcium abdi urement (mass/volume)Ordered By: [facility] 07-19-2024 Calcium [Mass/Vol] 9.5 mg/dL 7.6-11.0 [facility] Serum or plasma cholesterol in HDL measurement (mass/volume)Ordered By: [facility] 07-19-2024 Cholesterol in HDL [Mass/Vol] 46 mg/dL >40 [facility] Comment on above: National Cholesterol Education Program (NCEP) guidelines:<40 mg/dL: Low HDL-cholesterol (major risk factor for CHD)>= 60 mg/dL: High HDL-cholesterol (negative risk factor for CHD)HDL-cholesterol is affected by a number of factors, e.g. smoking, exercise, hormones, sex and age. Serum or plasma cholesterol measurement (mass/volume)Ordered By: [facility] on 07-19-2024 Cholesterol [Mass/Vol] 148 mg/dL <201 [facility] Comment on above: Cholesterol level, D esirable <200 mg/dLBorderline high cholesterol 200-239 mg/dLHigh cholesterol >=240 mg/dLRecommendations of the NCEP Adult Treatment Panel for the following risk-cutoff thresholds for the [place] population. Serum or plasma urea nitroge n measurement (mass/volume)Ordered By: [facility] on 07-19-2024 Urea nitrogen [Mass/Vol] 14 mg/dL 4-19 [facility] Sodium levelOrdered By: [facility] Marsha Liu on 07-19-2024 Sodium [Moles/Vol] 139 mmol/L 133-145 [facility] TSH DL <= 0.005 mIU/L QnOrde red By: [facility] Marsha Liu on 07-19-2024 TSH Qn 0.683 uIU/mL 0.300-4.20 0 [facility] Thyroid Stim Hormone (TSH)on 07-19-2024 TSH 0.683 uIU/mL Normal 0.300-4.20 0 [facility] Comment on above: Performed By: #### L 501.9520, L501.5200, L100.0100, L506.1001, L500.4100, L500.4050 ####[facility] [address] [place], [place], [id number] Total proteinOrdered By: [facility] Marsha Liu on 07-19-2024 Protein [Mass/Vol] 7.5 g/dL 5.9-8.4 [facility] Triglycerides measurementOrd ered By: [facility] Marsha Liu on 07-19-2024 Triglyceride [Mass/Vol] 72 mg/dL <199 [facility] Comment on above: The drugs N-Acetylcy steine and Metamizole may falsely depress this assay. Normal range: <150 mg/dLBorderline High: 150-199 mg/dLHigh: 200-499 mg/dLVery High: >500 mg/dL Vitamin D,25 Hydroxyon 07-19 Vitamin D 25-OH 44.1 ng/mL Normal 30-100 [facility] Comment on above: Result Comment: Allison min D Status Deficiency: <20 ng/mL (50nmol/L) Insufficiency: 20-30 ng/mL (50-75 nmol/L) Sufficiency: 30-100 ng/mL (75-250 nmol/L) Toxicity: >100 ng/mL (>250 nmol/L) Performed By: #### L 501.9520, L501.5200, L100.0100, L506.1001, L500.4100, L500.4050 ####[facility] [address] [place], [address] White blood cell (WBC) count Ordered By: [facility] Marsha Mendez on 07-19-2024 WBC (Bld) [#/Vol] 9.0 10*3/uL 4.4-11.0 [facility] Colonoscopy Reporton 025 Colonoscopy Report [facility] Medical Records Department [address] [place] [address] Colonoscopy Report MR#: [id number] Acct: [id number] Name: MARY AGUILERA Rep #: [id number] : 1960 63 From: Blanco Ayala MD PCP: Marsha Mendez [facility], FABRIC INSPECTOR-C Status:REG [facility] Patient Name: Mary Aguilera Procedure Date: 07/11/2024 [...] 1 week. Procedure Code(s): --- Professional --- 79312, Colonoscopy, flexible; with removal of tumor(s), polyp(s), or other lesion(s) by snare technique 07949, 59, Colonoscopy, flexible; with biopsy, single or multiple Diagnosis Code(s): --- Professional --- D12.2, Benign neoplasm of ascending colon D12.3, Benign neoplasm of transverse colon (hepatic flexure or splenic flexure) D12.8, Benign neoplasm of rectum R10.84, Generalized abdominal pain CPT copyright 2021 [employer]. All rights reserved. The codes documented in this report are preliminary and upon certified performance technologist review may be revised to meet current compliance requirements. Blanco Ayala MD 07/11/2024 12:41:10 PM This report has been signed electronically. Number of Addenda: 0 Note Initiated On: 07/11/2024 10:46 AM 07/11/24 1241 Date Blanco Ayala MD Cosigner Signature: Date (if indicated) CC: [facility] FABRIC INSPECTOR-C Marsha Mendez; Dr. Blanco Ayala MD Date Dictated: 07/11/24 1046 Date Transcribed: Whitewasher: KRISTIN Signed Normal [facility] EGD Reporton 07-11-2024 EGD Report [facility] Medical Records Department [address] [place] [address] EGD Report MR#: [id number] Acct: [id number] Name: MARY AGUILERA Rep #: [id number] : 1960 63 From: Blanco Ayala MD PCP: SLAON Vaca, FABRIC INSPECTOR-C Status:REG [facility] Patient Name: Mary Aguilera Procedure Date: 07/11/2024 [...] 1 week. Procedure Code(s): --- Professional --- 83884, Esophagogastroduodenoscopy, flexible, transoral; with biopsy, single or multiple Diagnosis Code(s): --- Professional --- K31.89, Other diseases of stomach and duodenum K31.7, Polyp of stomach and duodenum K22.89, Other specified disease of esophagus R10.13, Epigastric pain R14.0, Abdominal distension (gaseous) R11.0, Nausea CPT copyright 2021 [employer]. All rights reserved. The codes documented in this report are preliminary and upon certified performance technologist review may be revised to meet current compliance requirements. Blanco Ayala MD 07/11/2024 11:41:59 AM This report has been signed electronically. Number of Addenda: 0 Note Initiated On: 07/11/2024 10:18 AM 07/11/24 1142 Date Blanco Solis Signature: Date (if indicated) CC: [facility] FABRIC INSPECTOR-C Marsha Mendez; Dr. Blanco Ayala MD Date Dictated: 07/11/24 1018 Date Transcribed: Whitewasher: KRISTIN Signed Normal [facility] Immunohistochemical Stainson 07-11-2024 Immunohistochemical Stains -------- Patient Age/Sex Location Account Attending Physician -------- MARY AGUILERA/F EN [id number] Dr. Blanco Ayala MD -------- Specimen: [id number] Received: 07/11/24 Status: ALLYSSA Ruggiero Num: [id number] Spec Type: EGD BIOPSY Subm Dr: Dr. [...] developed and their performance characteristics determined by [facility]. They may not have been cleared or approved by the U.S. Food and Drug Administration. The FDA has determined that such clearance or approval is not necessary. The above immunohistochemical/dualISH markers are ordered and reviewed by the Pathologist. -------- Patient Age/Sex Location Account Attending Physician -------- MARY AGUILERA 63/F RON[place] [id number] Dr. Blanco Ayala MD -------- GROSS DESCRIPTION [...] 0.2 cm. Submitted in toto in H1. [facility] 07/12/2024 [facility]:[id number] -------- Patient Age/Sex Location Account Attending Physician -------- MARY AGUILERA/F EN [id number] Dr. Blanco Ayala, (more content not included)... [facility] Comment on above: Performed By: #### [facility] ####[facility] [address] [place] [place], [address] MR/POSTOP.ANEon 07-11-2024 MR/POSTOP.ANE [facility] Medical Records Department [address] [place] [address] Anesthesia Postop Eval I 07/11/24 1141 MR#: [id number] Acct: [id number] Name: MARY AGUILERA Rep #: [id number] : 1960 63 From: Denys Merritt PCP: SLOAN Vaca, FABRIC INSPECTOR-C Status:REG [facility] Y Race: C Location: [place] [address] Anesthesia: Postop Eval I Current Vital Signs [...] Denys Solis Signature: Date CC: Signed Normal [facility] MR/NESKWDRC3xi 07-11-2024 MR/POSTOPAN2 [facility] Medical Records Department [address] [place] [address] Anesthesia Postop Eval II 07/11/24 1235 MR#: [id number] Acct: [id number] Name: MARY AGUILERA Rep #: [id number] : 1960 63 From: Kane Zeng MD PCP: SLOAN Vaca, FABRIC INSPECTOR-C Status:REG SDC Y Race: C Location: [facility]14-1 Anesthesia Postop Eval I Sum Postop [...] Zeng MD Cosign Signature: Date CC: Signed [facility] MR/PATYURI 07-06-2024 MR/PAT.[facility] Medical Records Department [address] [place] [address] PAT - Anesthesia 07/06/24 1121 MR#: [id number] Acct: [id number] Name: MARY AGUILERA Rep #: [id number] : 1960 63 From: Kane Zeng MD PCP: SLOAN Vaca, FABRIC INSPECTOR-C Status:PRE SDC Y Race: C Location: EN Pre-Assessment Diagnosis/Proposed Procedure Planned Operative Procedure(s): EGD/CSCOPE Anesthesia History 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: 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 Hx Hospitalization No 07/06/24 10:35 Any Problems [...] take am of surgery PONV PONV - guest service manager: PONV - guest service manager Female Yes 07/06/24 10:35 HX of Motion [...] 03/21/24 07:50 Respiratory Assessment Respiratory Assessment - guest service manager: Respiratory Tract Infection Hx - guest service manager Hx Respiratory Tract Infection No 07/06/24 10:35 STOP Sleep Apnea STOP Sleep Apnea - guest service manager: STOP Sleep Apnea - guest service manager Hx Hypertension No 07/06/24 10:35 Hx Sleep [...] Tobacco Use History Tobacco Use History - guest service manager: Tobacco Use History - guest service manager Tobacco Use Smoking Status Current every day smoker 07/06/24 10:35 Hx Tobacco Use Yes 07/06/24 10:35 Years Smoking Packs Smoked per Day Smoking Cessation Date was within the last 15 years Hx Smoking Cessation Date Hx Smoking Cessation Counseling Hematologic Medial History Hematologic Hx - guest service manager: 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 Normal [facility] Chest without Contraston Chest without Contrast [facility] Imaging Services [address] [place], [place] [address] Chest without Contrast MR#: [id number] Acct: [id number] Name: MARY AGUILERA Rep #: [id number] : 1960 F 63 From: Pablo Lennon MD PCP: SLOAN Vaca, FABRIC INSPECTOR-C Status: REG CLI Study: Chest without Contrast Date of Exam: 06/20/24 Exam# [id number] Ordering Dr: Melissa Pickering NP FABRIC INSPECTOR-C EXAM: CT Chest Without Intravenous Contrast CLINICAL [...] biopsy. Reading Location: RAD-LE-NL CC: IRWIN Pickering; [facility] FABRIC INSPECTORJyotiC Marsha Mendez Whitewasher: Signed Normal [facility] Abdomen Completeon Abdomen Complete [facility] Imaging Services [address] [place] [address] Abdomen Complete MR#: [id number] Acct: [id number] Name: MARY AGUILERA Rep #: [id number] : 1960 F 63 From: Pradip Urias MD PCP: Marsha Mendez [facility], FABRIC INSPECTOR-C Status: REG CLI Study: Abdomen Complete Date of Exam: 06/16/24 Exam# [id number] Ordering Dr: Marsha Mendez FABRIC INSPECTOR-Manohar PROCEDURE: ABDOMEN COMPLETE 06/16/2024 REASON FOR EXAM: [...] Study otherwise appears within limits. Reading Location: [id number] CC: [facility] FABRIC INSPECTOR-C Marsha Mendez Whitewasher: Signed Normal [facility] Absolute lymphocyte countOrd ered By: [facility] Marsha Mendez on 06-08-2024 Lymphocytes Auto (Unsp spec) [#/Vol] 2.23 10*3/uL 0.83-4.51 [facility] Absolute neutrophil countOrd ered By: [facility] Marsha Mendez on 06-08-2024 Neutrophils (Bld) [#/Vol] 4.4 10*3/uL 2.0-7.7 [facility] Anion gap in Serum or Plasma Ordered By: [facility] Marsha Liu on 06-08-2024 Anion gap [Moles/Vol] 12 mmol/L 5- [facility] Automated lymphocyte count a s percentage of total leukocytesOrdered By: [facility] Marsha Liu on 06-08-2024 Lymphocytes/100 WBC Auto (Unsp spec) 28.7 % - [facility] BUN/creatinine ratioOrdered By: [facility] Liu on 06-08-2024 Urea nitrogen/Creatinine [Mass ratio] 13.4 mg/mg 10- [facility] Basophil percentageOrdered B y: [facility] on 06-08-2024 Basophils/100 WBC (Bld) 1.2 % High 0-1 [facility] Bilirubin, totalOrdered By: [facility] Marsha Liu on 06-08-2024 Bilirubin [Mass/Vol] 0.45 mg/dL 0.00-1.30 [facility] CBC W/Diff, Automatedon 05-21 Absolute Lymph 2.23 X10 3/uL Normal 0.83-4.51 [facility] Comment on above: Performed By: #### L 100.0100, L500.4050, L501.2450 ####[facility] [address] [place], [address] Absolute Neut 4.4 X10 3/uL Normal 2.0-7.7 [facility] Comment on above: Performed By: #### L 100.0100, L500.4050, L501.2450 ####[facility] [address] [place], [address] Basophils/100 WBC (Bld) 1.2 % High 0-1 [facility] Comment on above: Performed By: #### L 100.0100, L500.4050, L501.2450 ####[facility] [address] [place], [address] Eosinophils/100 WBC (Bld) 3.9 % Normal 0-5 [facility] Comment on above: Performed By: #### L 100.0100, L500.4050, L501.2450 ####[facility] [address] [place], [address] Erythrocyte distribution width (RBC) [Ratio] 13.3 % Normal 11.6-14.6 [facility] Comment on above: Performed By: #### L 100.0100, L500.4050, L501.2450 ####[facility] [address] [place], [address] Hematocrit (Bld) [Volume fraction] 39.8 % Normal 37-47 [facility] Comment on above: Performed By: #### L 100.0100, L500.4050, L501.2450 ####[facility] [address] [place], [address] Hemoglobin (Bld) [Mass/Vol] 13.1 g/dL Normal 12.0-15.0 [facility] Comment on above: Performed By: #### L 100.0100, L500.4050, L501.2450 ####[facility] [address] [place], [address] IG% 0.300 Normal 0.0-0.9 [facility] Comment on above: Result Comment: IG% - Immature Granulocytes (promyelocytes, myelocytes and metamyelocytes) > 1% indicates that a LEFT SHIFT is Present. Performed By: #### L 100.0100, L500.4050, L501.2450 ####[facility] [address] [place], [address] Lymphocytes/100 WBC (Bld) 28.7 % Normal 19-41 [facility] Comment on above: Performed By: #### L 100.0100, L500.4050, L501.2450 ####[facility] [address] [place], [address] MCH (RBC) [Entitic mass] 29.6 pg Normal 27.0-32.0 [facility] Comment on above: Performed By: #### L 100.0100, L500.4050, L501.2450 ####[facility] [address] [place], [address] MCHC (RBC) [Mass/Vol] 32.9 g/dL Normal 32-36 [facility] Comment on above: Performed By: #### L 100.0100, L500.4050, L501.2450 ####[facility] [address] [place], [address] MCV (RBC) [Entitic vol] 90.0 fL Normal 81-99 [facility] Comment on above: Performed By: #### L 100.0100, L500.4050, L501.2450 ####[facility] [address] [place], [address] Monocytes/100 WBC (Bld) 9.7 % Normal 0-10 [facility] Comment on above: Performed By: #### L 100.0100, L500.4050, L501.2450 ####[facility] [address] [place], [address] Neutrophils/100 WBC (Bld) 56.2 % Normal 47-70 [facility] Comment on above: Performed By: #### L 100.0100, L500.4050, L501.2450 ####[facility] [address] [place], [address] Nucleated RBC (Bld) [#/Vol] 0 10*3/uL Normal 0-5 [facility] Comment on above: Performed By: #### L 100.0100, L500.4050, L501.2450 ####[facility] [address] [place], [address] Platelet mean volume (Bld) [Entitic vol] 10.6 fL Normal 6.2-12.0 [facility] Comment on above: Performed By: #### L 100.0100, L500.4050, L501.2450 ####[facility] [address] [place], [address] Platelets (Bld) [#/Vol] 338 10*3/uL Normal 150-450 [facility] Comment on above: Performed By: #### L 100.0100, L500.4050, L501.2450 ####[facility] [address] [place], [address] RBC (Bld) [#/Vol] 4.42 10*6/uL Normal 4.2-5.4 [facility] Comment on above: Performed By: #### L 100.0100, L500.4050, L501.2450 ####[facility] [address] [place], [address] RDW SD 44.0 fl High 35.1-43.9 [facility] Comment on above: Performed By: #### L 100.0100, L500.4050, L501.2450 ####[facility] [address] [place], [address] WBC (Bld) [#/Vol] 7.8 10*3/uL Normal 4.4-11.0 [facility] Comment on above: Performed By: #### L 100.0100, L500.4050, L501.2450 ####[facility] [address] [place], [address] Carbon dioxide, total [Moles /volume] in Central venous bloodOrdered By: [facility] Marsha Mendez on 06-08-2024 CO2 [Moles/Vol] 22.0 mmol/L 21.0-32.0 [facility] Chloride assayOrdered By: VS Manohar Mendez on 06-08-2024 Chloride [Moles/Vol] 105 mmol/L 98-108 [facility] Comprehensive Metabolic Prof ilon 06-08-2024 Albumin [Mass/Vol] 4.6 g/dL Normal 3.4-4.8 [facility] Comment on above: Performed By: #### L 100.0100, L500.4050, L501.2450 ####[facility] [address] [place], [address] Albumin/Globulin [Mass ratio] 1.6 {ratio} Normal 0.9-2.4 [facility] Comment on above: Performed By: #### L 100.0100, L500.4050, L501.2450 ####[facility] [address] [place], [address] ALK PHOS 83 U/L Normal 35-104 [facility] Comment on above: Performed By: #### L 100.0100, L500.4050, L501.2450 ####[facility] [address] [place], [address] ALT [Catalytic activity/Vol] 19 U/L Normal <=34 [facility] Comment on above: Performed By: #### L 100.0100, L500.4050, L501.2450 ####[facility] [address] [place], [address] AST [Catalytic activity/Vol] 22 U/L Normal <=31 [facility] Comment on above: Performed By: #### L 100.0100, L500.4050, L501.2450 ####[facility] [address] [place] [place], [address] Bilirubin [Mass/Vol] 0.45 mg/dL Normal 0.00-1.30 [facility] Comment on above: Performed By: #### L 100.0100, L500.4050, L501.2450 ####[facility] [address] [place], [address] BUN/CRE 13.4 RATIO Normal 10-20 [facility] Comment on above: Performed By: #### L 100.0100, L500.4050, L501.2450 ####[facility] [address] [place], [address] Calcium [Mass/Vol] 9.5 mg/dL Normal 7.6-11.0 [facility] Comment on above: Performed By: #### L 100.0100, L500.4050, L501.2450 ####[facility] [address] [place], [address] Chloride [Moles/Vol] 105 mmol/L Normal 98-108 [facility] Comment on above: Performed By: #### L 100.0100, L500.4050, L501.2450 ####[facility] [address] [place], [address] CO2 [Moles/Vol] 22.0 mmol/L Normal 21.0-32.0 [facility] Comment on above: Performed By: #### L 100.0100, L500.4050, L501.2450 ####[facility] [address] [place], [address] Creatinine [Mass/Vol] 1.06 mg/dL Normal 0.70-1.20 [facility] Comment on above: Performed By: #### L 100.0100, L500.4050, L501.2450 ####[facility] [address] [place], [address] GAP 12 Normal 5-15 [facility] Comment on above: Performed By: #### L 100.0100, L500.4050, L501.2450 ####[facility] [address] [place], [address] GFR/1.73 sq M.predicted among non-blacks MDRD (S/P/Bld) [Vol rate/Area] 58 mL/min/{1.73_m2} Low >60 [facility] Comment on above: Result Comment: mL/m in/1.73m2 CKD-EPI Creatinine Equation (2020) Performed By: #### L 100.0100, L500.4050, L501.2450 ####[facility] [address] [place], [address] Globulin (S) [Mass/Vol] 2.9 g/dL Normal 2.2-4.2 [facility] Comment on above: Performed By: #### L 100.0100, L500.4050, L501.2450 ####[facility] [address] [place], [address] Glucose [Mass/Vol] 101 mg/dL High 70-99 [facility] Comment on above: Performed By: #### L 100.0100, L500.4050, L501.2450 ####[facility] [address] [place], [address] Potassium [Moles/Vol] 4.0 mmol/L Normal 3.3-5.1 [facility] Comment on above: Performed By: #### L 100.0100, L500.4050, L501.2450 ####[facility] [address] [place], [address] Sodium [Moles/Vol] 138 mmol/L Normal 133-145 [facility] Comment on above: Performed By: #### L 100.0100, L500.4050, L501.2450 ####[facility] [address] [place], [address] T PROT 7.5 g/dL Normal 5.9-8.4 [facility] Comment on above: Performed By: #### L 100.0100, L500.4050, L501.2450 ####[facility] [address] [place], [address] Urea nitrogen [Mass/Vol] 14 mg/dL Normal 4-19 [facility] Comment on above: Performed By: #### L 100.0100, L500.4050, L501.2450 ####[facility] [address] [place], [address] Eosinophil percentageOrdered By: [facility] Marsha Mendez on 06-08-2024 Eosinophils/100 WBC (Bld) 3.9 % 0-5 [facility] Erythrocyte distribution wid th ratioOrdered By: [facility] Marsha Mendez on 06-08-2024 Erythrocyte distribution width (RBC) [Ratio] 13.3 % 11.6-14.6 [facility] Erythrocyte distribution wid th standard deviationOrdered By: [facility] Liu on 06-08-2024 Erythrocyte distribution width (RBC) [Entitic vol] 44.0 fL High 35.1-43.9 [facility] Erythrocyte distribution width (RBC) [Ratio] 44.0 fl High 35.1-43.9 [facility] GFR/1.73 sq M.predicted amber g non-blacks MDRD (S/P/Bld) [Vol rate/Area]Ordered By: [facility] Marsha Mendez on 06-08-2024 Estimated GFR (MDRD) Non-Af Amer 58 Low >60 [facility] Comment on above: mL/min/1.73m2 CKD-EP I Creatinine Equation (2020) Glomerular filtration rate ( GFR) estimation/1.73 sq m using serum, plasma, or whole bOrdered By: [facility] Marsha Mendez on 06-08-2024 GFR/1.73 sq M.predicted among non-blacks MDRD (S/P/Bld) [Vol rate/Area] 58 mL/min/{1.73_m2} Low >60 [facility] Comment on above: mL/min/1.73m2 CKD-EP I Creatinine Equation (2020) Hematocrit Auto (Bld) [Volum e fraction]Ordered By: [facility] Marsha Mendez on 06-08-2024 Hematocrit (Bld) [Volume fraction] 39.8 % 37-47 [facility] Hemoglobin measurementOrdere d By: [facility] Marsha Mendez on 06-08-2024 Hemoglobin (Bld) [Mass/Vol] 13.1 g/dL 12.0-15.0 [facility] Immature granulocytes/100 WB C Auto (Bld)Ordered By: [facility] Liu on 06-08-2024 Immature granulocytes/100 WBC (Bld) 0.300 % 0.0-0.9 [facility] Comment on above: IG% - Immature Granu locytes (promyelocytes, myelocytes and metamyelocytes) > 1% indicates that a LEFT SHIFT is Present. Laboratory - Chemistry and C hemistry - challengeOrdered By: [facility] Liu on 06-08-2024 AST [Catalytic activity/Vol] 22 U/L <32 [facility] Lipaseon 06-08-2024 Lipase [Catalytic activity/Vol] 43 U/L Normal 13-75 [facility] Comment on above: Result Comment: Maxime campo note: LIPASE revised reference range effective 22. New Lipase methodology. Expected to produce lower values than the previous assay method. NEW Reference Range: 13 - 75 U/L Performed By: #### L 100.0100, L500.4050, L501.2450 ####[facility] [address] [place], [address] Lipase measurementOrdered By : [facility] Liu on 06-08-2024 Lipase [Catalytic activity/Vol] 43 U/L 13-75 [facility] Comment on above: Please note:LIPASE r evised reference range effective 22. New Lipase methodology. Expected to produce lower values than the previous assay method. NEW Reference Range: 13 - 75 U/L Lymphocytes Auto (Unsp spec) [#/Vol]Ordered By: [facility] Marshachristianne Mendez on 06-08-2024 Lymphocytes (Bld) [#/Vol] 2.23 10*3/uL 0.83-4.51 [facility] Lymphocytes/100 WBC Auto (Un sp spec)Ordered By: [facility] Marsha Mendez on 06-08-2024 Lymphocytes/100 WBC (Bld) 28.7 % 19-41 [facility] MCV (mean corpuscular volume ) determinationOrdered By: [facility] Marsha Mendez on 06-08-2024 MCV (RBC) [Entitic vol] 90.0 fL 81-99 [facility] Mean corpuscular hemoglobin (MCH) determinationOrdered By: [facility] Marsha Mendez on 06-08-2024 MCH (RBC) [Entitic mass] 29.6 pg 27.0-32.0 [facility] Mean corpuscular hemoglobin concentration (MCHC) determinationOrdered By: [facility] Marsha Mendez on 06-08-2024 MCHC (RBC) [Mass/Vol] 32.9 g/dL 32-36 [facility] Mean platelet volume determi nationOrdered By: [facility] Marsha Mendez on 06-08-2024 Platelet mean volume (Bld) [Entitic vol] 10.6 fL 6.2-12.0 [facility] Monocyte percentageOrdered B y: [facility] Marsha Mendez on 06-08-2024 Monocytes/100 WBC (Bld) 9.7 % 0-10 [facility] Neutrophil percentageOrdered By: [facility] Marsha Mendez on 06-08-2024 Neutrophils/100 WBC (Bld) 56.2 % 47-70 [facility] Nucleated red blood cell per centageOrdered By: [facility] Marsha Mendez on 06-08-2024 Nucleated RBC/100 WBC (Bld) [Ratio] 0 % 0-5 [facility] Platelet countOrdered By: [facility] Marsha Mendez on 06-08-2024 Platelets (Bld) [#/Vol] 338 10*3/uL 150-450 [facility] Potassium (Unsp spec) [Mass/ Vol]Ordered By: [facility] Marsha Mendez on 06-08-2024 Potassium [Moles/Vol] 4.0 mmol/L 3.3-5.1 [facility] Potassium measurement (mass/ volume)Ordered By: [facility] Marsha Mendez on 06-08-2024 Potassium (Unsp spec) [Mass/Vol] 4.0 mmol/L 3.3-5.1 [facility] RBC Auto (Bld) [#/Vol]Ordere d By: [facility] Marshachristianne Mendez on 06-08-2024 RBC (Bld) [#/Vol] 4.42 10*6/uL 4.2-5.4 [facility] Serum creatinine measurement (mass/volume)Ordered By: [facility] Marsha Mendez on 06-08-2024 Creatinine [Mass/Vol] 1.06 mg/dL 0.70-1.20 [facility] Serum globulin measurementOr dered By: [facility] Marsha Mendez on 06-08-2024 Globulin (S) [Mass/Vol] 2.9 g/dL 2.2-4.2 [facility] Serum glucose measurement (m ass/volume)Ordered By: [facility] Marsha Mendez on 06-08-2024 Glucose [Mass/Vol] 101 mg/dL High 70-99 [facility] Serum or plasma alanine dow otransferase (ALT) measurementOrdered By: [facility] Marsha Mendez on 06-08-2024 ALT [Catalytic activity/Vol] 19 U/L <35 [facility] Serum or plasma albumin abdi urement (mass/volume)Ordered By: [facility] Marsha Mendez on 06-08-2024 Albumin [Mass/Vol] 4.6 g/dL 3.4-4.8 [facility] Serum or plasma albumin/glob ulin mass ratioOrdered By: [facility] Marsha Mendez on 06-08-2024 Albumin/Globulin [Mass ratio] 1.6 {ratio} 0.9-2.4 [facility] Serum or plasma alkaline donovan sphatase measurementOrdered By: [facility] Marsha Mendez on 06-08-2024 ALP [Catalytic activity/Vol] 83 U/L 35-104 [facility] Serum or plasma calcium abdi urement (mass/volume)Ordered By: [facility] Marsha Mendez on 06-08-2024 Calcium [Mass/Vol] 9.5 mg/dL 7.6-11.0 [facility] Serum or plasma urea nitroge n measurement (mass/volume)Ordered By: [facility] Marsha Mendez on 06-08-2024 Urea nitrogen [Mass/Vol] 14 mg/dL 4-19 [facility] Sodium levelOrdered By: [facility] Marsha Mendez on 06-08-2024 Sodium [Moles/Vol] 138 mmol/L 133-145 [facility] Total proteinOrdered By: [facility] Marsha Mendez on 06-08-2024 Protein [Mass/Vol] 7.5 g/dL 5.9-8.4 [facility] White blood cell (WBC) count Ordered By: [facility] Marsha Mendez on 06-08-2024 WBC (Bld) [#/Vol] 7.8 10*3/uL 4.4-11.0 [facility] Pulmonary Visit Reporton Pulmonary Visit Report [facility] [place] 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 Normal [facility] Low Dose CT Lung Screeningon 03-14-[address] Lung Screening [facility] Imaging Services [address] [place] [id number] Lung Screening MR#: [id number] Acct: [id number] Name: MARY AGUILERA Rep #: [id number] : 1960 F 63 From: Nicolas padgett DO PCP: Marsha Mendez Manohar, FABRIC INSPECTOR-C Status: REG CLI Study: Low Dose CT Lung Screening Date of Exam: 03/14 Exam# [id number] Ordering Dr: Melissa Pickering NP FABRIC INSPECTOR-C ADDENDUM by Dr. Nicolas Mratinez DO on 03/14/24 at 2309 :[id number] EXAM: CT CHEST, LUNG CANCER SCREENING WITHOUT [...] No enlarged lymph nodes. 03/14/242305 Date cc: FABRIC INSPECTOR-C Melissa Pickering; [facility] FABRIC INSPECTOR-C Marsha Mendez * Signed ADDENDUM by Dr. [...] , 03/15/24 103 Date cc: IRWIN Pickering; [facility] FABRIC INSPECTORAlonso Mendez * Signed ACR Level 3 findings have been noted. An addendum which confirms receipt of the report will follow. :[id number] EXAM: CT CHEST, LUNG CANCER SCREENING WITHOUT [...] enlarged l (more content not included)... Normal [facility] SCRN MAMM (CAD)W/BONITA BILTara n 12-22-2023 SCRN MAMM (CAD)W/BONITA BILAT [facility] Imaging Services [address] [place], [place] [address] SCRN MAMM (CAD)W/BONITA CLARISSAPANKAJ MR#: [id number] Acct: [id number] Name: MARY AGUILERA Rep #: [id number] : 1960 F 63 From: Pete davis MD PCP: [facility] Status: REG CLI Study: SCRN MAMM (CAD)W/BONITA BILAT Date of Exam: 04/15 Exam# [id number] Ordering Dr: Marsha Mendez [facility] FABRIC INSPECTOR-C :[id number] MAMMOGRAPHY - BILATERAL SCREENING REASON FOR EXAM: [...] delay biopsy of a clinically suspicious abnormality. [id number] Electronically Signed: Pete Bartholomew MD at 15:16 EDT , CC: [facility] IRWIN Mendez; [facility] Whitewasher: Signed Normal [facility] Echo Completeon 12-18-2023 Echo Complete [facility] Cardiovascular Services [address] [place] [address] Echo Complete 12/18/23 1000 MR#: [id number] Acct: [id number] Name: MARY AGUILERA Rep #: [id number] : 1960 63 From: Asael Salter MD [...] Salter MD CC: Dr. Blanco Hernandez MD; [facility] Date Dictated: 12/18/23 1000 Date Transcribed: 12/18/23 1501 Whitewasher: Signed Normal [facility] Stress Reporton 12-18-2023 Stress Report [facility] Cardiovascular Services [address] [place] [address] MR#: [id number] Acct: [id number] Name: MARY AGUILERA Rep #: [id number] : 1960 63 From: Asael Salter MD Primary Care: [facility] Status: REG CLI Referring Dr: Blanco [...] Salter MD CC: Dr. Blanco Hernandez MD; [facility] Date Dictated: 12/18/231419 Date Transcribed: 12/18/231419 Whitewasher: CO Signed Normal [facility] 12 Lead EKG performed by [facility] on 12-01-2023 12 Lead EKG performed by [facility] [address] [place] [address] 12 Lead EKG performed by [facility] 12/01/23 1016 MR#: [id number] Acct: [id number] Name: MARY AGUILERA Alex Rep #: [id number] : 1960 63 From: Blanco Hernandez MD Attending Dr: Dr. Blanco Hernandez MD Status: DE P AMB Ordering Dr: Blanco Hernandez MD Date: 12/01/23 Location: [facility] Sex: F C Admitted: BMS/12 Lead EKG performed by [facility] ECG Report Interpretation NO RMAL SINUS RhythmBaseline ArtifactOtherwise NORMALElectronically signed on 12/01/2023 at 15:[address] Blanco Hernandez [email or web address] Software Version [id number] 12/01/23 1529 Date Blanco Hernandez MD CC: [facility] Date Dictated: 12/01/23 1016 Date Transcribed: 12/01/23 1016 Whitewasher: Signed Normal [facility] Cardiology Visit Reporton Cardiology Visit Report [facility] [address] [place] [address] OFFICE VISIT Date of Service: 12/01/23 MR#: [id number] Acct: [id number] Name: MARY AGUILERA Rep #: [id number] : 1960 Provider: Dr. Blanco peters MD Age/Sex: 63/F Location: [facility] Status: Signed with Addenda ADDENDUM by Dr. [...] 12/01/23 1422 Date Blanco Hernandez MD cc: [facility] * Signed HPI HPI History of [...] she does smoke and has about a 95-nymh-fmom smoking history. The patient is not diabetic [...] room air Intake Visit Reasons: SOB/REEST (LIU) [employer]ographic Information Systems Director Required: No Accompanied by: Self Is patient [...] and depression (more content not included)... Normal [facility] Absolute lymphocyte countOrd ered By: [facility] Marsha Mendez on 07-06-2023 Lymphocytes Auto (Unsp spec) [#/Vol] 1.85 10*3/uL 0.83-4.51 [facility] Automated lymphocyte count a s percentage of total leukocytesOrdered By: [facility] Marsha Mendez on 07-06-2023 Lymphocytes/100 WBC Auto (Unsp spec) 23.7 % 19-41 [facility] Basophil percentageOrdered B y: [facility] Marsha Mendez on 07-06-2023 Basophils/100 WBC (Bld) 0.9 % 0-1 [facility] Bilirubin [Mass/Vol] 0.50 mg/dL 0.20-1.00 [facility] Comment on above: For patients on eltr ombopag therapy, use of Dimension [place] TBIL is not recommended. Chloride [Moles/Vol] 108 mmol/L 98-107 [facility] Cholesterol [Mass/Vol] 195 mg/dL <200 [facility] Comment on above: <200 mg/dL Desirable 200-240 mg/dL Borderline >240 mg/dL High Risk Eosinophils/100 WBC (Bld) 4.9 % 0-5 [facility] Glucose [Mass/Vol] 120 mg/dL 74-106 [facility] Comment on above: Fasting Glucose resu lt from 100 to 125 mg/dL suggests IMPAIRED HOMEOSTASIS per A.D.A. criteria. Hemoglobin (Bld) [Mass/Vol] 12.8 g/dL 12.0-15.0 [facility] Monocytes/100 WBC (Bld) 9.6 % 0-10 [facility] Neutrophils (Bld) [#/Vol] 4.7 10*3/uL 2.0-7.7 [facility] Neutrophils/100 WBC (Bld) 60.8 % 47-70 [facility] Potassium [Moles/Vol] 3.8 mmol/L 3.5-5.1 [facility] Protein [Mass/Vol] 7.3 g/dL 6.4-8.2 [facility] Sodium [Moles/Vol] 140 mmol/L 136-145 [facility] Triglyceride [Mass/Vol] 46 mg/dL <199 [facility] Comment on above: The drugs N-Acetylcy steine and Metamizole may falsely depress this assay.Serum Triglycerides Reference Interval Normal <150 mg/dL Borderline high 150 - 199 mg/dL High 200 - 499 mg/dL Very High > or = 500 mg/dL WBC (Bld) [#/Vol] 7.8 10*3/uL 4.4-11.0 [facility] Determination of erythrocyte mean corpuscular volume (MCV)Ordered By: [facility] Marsha Mendez on 07-06-2023 MCV (RBC) [Entitic vol] 88.3 fL 81-99 [facility] Erythrocyte distribution wid th ratioOrdered By: [facility] Marsha Mendez on 07-06-2023 Erythrocyte distribution width (RBC) [Ratio] 13.5 % 11.6-14.6 [facility] Erythrocyte distribution wid th standard deviationOrdered By: [facility] Marsha Mendez on 07-06-2023 Erythrocyte distribution width (RBC) [Entitic vol] 43.5 fL 35.1-43.9 [facility] Hematocrit Auto (Bld) [Volum e fraction]Ordered By: [facility] Marsha Mendez on 07-06-2023 Hematocrit (Bld) [Volume fraction] 39.3 % 37-47 [facility] Immature granulocytes/100 WB C Auto (Bld)Ordered By: [facility] Liu on 07-06-2023 Immature granulocytes/100 WBC (Bld) 0.100 % 0.0-0.9 [facility] Comment on above: IG% - Immature Granu locytes (promyelocytes, myelocytes and metamyelocytes) > 1% indicates that a LEFT SHIFT is Present. Laboratory - Chemistry and C hemistry - challengeOrdered By: [facility] Marsha Mendez on 07-06-2023 Albumin/Globulin [Mass ratio] 1.1 {ratio} 0.9-2.4 [facility] ALP [Catalytic activity/Vol] 66 U/L 45-117 [facility] ALT [Catalytic activity/Vol] 20 U/L 13-56 [facility] Cholesterol in HDL [Mass/Vol] 56 mg/dL >40 [facility] Comment on above: The drugs N-Acetylcy steine and Metamizole may falsely depress this assay. Reference Range HDL <40 mg/dL Low HDL Cholesterol HDL >or= 60 mg/dL High HDL Cholesterol Cholesterol in LDL [Mass/Vol] 130 mg/dL 0-130 [facility] CO2 [Moles/Vol] 26.0 mmol/L 21.0-32.0 [facility] Globulin (S) [Mass/Vol] 3.5 g/dL 2.2-4.2 [facility] Natriuretic peptide B (Bld) [Mass/Vol] 24.5 pg/mL 0-100 [facility] Urea nitrogen/Creatinine [Mass ratio] 19.9 mg/mg 10-20 [facility] Laboratory - Hematology and Cell countsOrdered By: [facility] Marsha Mendez on 07-06-2023 MCH (RBC) [Entitic mass] 28.8 pg 27.0-32.0 [facility] MCHC (RBC) [Mass/Vol] 32.6 g/dL 32-36 [facility] Nucleated RBC/100 WBC (Bld) [Ratio] 0 % 0-5 [facility] Platelet mean volume (Bld) [Entitic vol] 10.6 fL 6.2-12.0 [facility] Platelets (Bld) [#/Vol] 366 10*3/uL 150-450 [facility] No Panel InformationOrdered By: [facility] Marsha Mendez on 07-06-2023 Estimated GFR (MDRD) Amer 75 mL/min >60 [facility] Comment on above: GFR Calc Estimated GFR (MDRD) Non-Af Amer 62 mL/min >60 [facility] Comment on above: Non- GFR Calc VLDL Cholesterol 9 mg/dL 5-40 [facility] RBC Auto (Bld) [#/Vol]Ordere d By: [facility] Marsha Mendez on 07-06-2023 RBC (Bld) [#/Vol] 4.45 10*6/uL 4.2-5.4 [facility] Serum or plasma calcitriol m easurement (mass/volume)Ordered By: [facility] Marsha Mendez on 07-06-2023 1,25-dihydroxyvitamin D3 [Mass/Vol] 80.8 pg/mL 24.8-81.5 [facility] Comment on above: Performed at: [address] [id number] Director: Mendy Hooper MD, Phone: [phone] Serum or plasma calcium abdi urement (mass/volume)Ordered By: [facility] Marsha Mendez on 07-06-2023 Calcium [Mass/Vol] 9.1 mg/dL 8.5-10.1 [facility] Serum or plasma creatinine m easurement (mass/volume)Ordered By: [facility] Marsah Mendez on 07-06-2023 Creatinine [Mass/Vol] 0.96 mg/dL 0.55-1.02 [facility] Comment on above: The validity of the calculated GFR & GFRAA in patients over 70 years has not been determined. Clinical correlation is essential. Serum or plasma thyroid stim ulating hormone (TSH) measurement (units/volume)Ordered By: [facility] Marsha Mendez on 07-06-2023 TSH Qn 0.80 uIU/mL 0.358-3.74 [facility] Serum or plasma urea nitroge n measurement (mass/volume)Ordered By: [facility] Marsha Mendez on 07-06-2023 Urea nitrogen [Mass/Vol] 19 mg/dL 7-18 [facility] Thin prep Papanicolaou smear with manual screeningOrdered By: [facility] Liu on 07-06-2023 Thin prep Papanicolaou smear with manual screening 3.8 g/dL 3.2-5.0 [facility] Thin prep Papanicolaou smear with manual screening 17 U/L 15-37 [facility] Thin prep Papanicolaou smear with manual screening 6 5-15 [facility] Absolute lymphocyte countOrd ered By: Marsha Mendez on 10-20-2022 Lymphocytes Auto (Unsp spec) [#/Vol] 2.05 10*3/uL 0.83-4.51 [facility] Basophil percentageOrdered B y: Marsha Mendez on 10-20-2022 Basophils/100 WBC (Bld) 0.8 % 0-1 [facility] Bilirubin [Mass/Vol] 0.30 mg/dL 0.20-1.00 [facility] Comment on above: For patients on eltr ombopag therapy, use of Dimension [place] TBIL is not recommended. Chloride [Moles/Vol] 110 mmol/L 98-107 [facility] Cholesterol [Mass/Vol] 243 mg/dL <200 [facility] Comment on above: <200 mg/dL Desirable 200-240 mg/dL Borderline >240 mg/dL High Risk Eosinophils/100 WBC (Bld) 2.8 % 0-5 [facility] Glucose [Mass/Vol] 94 mg/dL 74-106 [facility] Neutrophils (Bld) [#/Vol] 6.3 10*3/uL 2.0-7.7 [facility] Neutrophils/100 WBC (Bld) 64.4 % 47-70 [facility] Potassium [Moles/Vol] 4.1 mmol/L 3.5-5.1 [facility] Protein [Mass/Vol] 7.2 g/dL 6.4-8.2 [facility] Sodium [Moles/Vol] 140 mmol/L 136-145 [facility] Triglyceride [Mass/Vol] 205 mg/dL <199 [facility] Comment on above: The drugs N-Acetylcy steine and Metamizole may falsely depress this assay.Serum Triglycerides Reference Interval Normal <150 mg/dL Borderline high 150 - 199 mg/dL High 200 - 499 mg/dL Very High > or = 500 mg/dL WBC (Bld) [#/Vol] 9.7 10*3/uL 4.4-11.0 [facility] Blood erythrocytes count (nu mber/volume)Ordered By: Marsha Mendez on 10-20-2022 RBC (Bld) [#/Vol] 4.35 10*6/uL 4.2-5.4 [facility] Blood hemoglobin measurement (mass/volume)Ordered By: Marsha Mendez on 10-20-2022 Hemoglobin (Bld) [Mass/Vol] 12.5 g/dL 12.0-15.0 [facility] Blood lymphocytes/100 leukoc ytesOrdered By: Marsha Mendez on 10-20-2022 Lymphocytes/100 WBC (Bld) 21.1 % 19-41 [facility] Blood monocytes/100 leukocyt esOrdered By: Marsha Mendez on 10-20-2022 Monocytes/100 WBC (Bld) 10.6 % 0-10 [facility] Blood platelet mean volumeOr dered By: Marsha Mendez on 10-20-2022 Platelet mean volume (Bld) [Entitic vol] 10.7 fL 6.2-12.0 [facility] Determination of erythrocyte mean corpuscular volume (MCV)Ordered By: Marsha Mendez on 10-20-2022 MCV (RBC) [Entitic vol] 91.5 fL 81-99 [facility] Hematocrit Auto (Bld) [Volum e fraction]Ordered By: Marsha Mendez on 10-20-2022 Hematocrit (Bld) [Volume fraction] 39.8 % 37-47 [facility] Laboratory - Chemistry and C hemistry - challengeOrdered By: Marsha Mendez on 10-20-2022 ALP [Catalytic activity/Vol] 73 U/L 45-117 [facility] ALT [Catalytic activity/Vol] 17 U/L 13-56 [facility] CO2 [Moles/Vol] 27.0 mmol/L 21.0-32.0 [facility] Globulin (S) [Mass/Vol] 3.5 g/dL 2.2-4.2 [facility] Urea nitrogen/Creatinine [Mass ratio] 15.0 mg/mg 10-20 [facility] Laboratory - Hematology and Cell countsOrdered By: Marsha Mendez on 10-20-2022 Erythrocyte distribution width (RBC) [Entitic vol] 46.5 fL 35.1-43.9 [facility] Erythrocyte distribution width (RBC) [Ratio] 13.8 % 11.6-14.6 [facility] Immature granulocytes/100 WBC (Bld) 0.300 % 0.0-0.9 [facility] Comment on above: IG% - Immature Granu locytes (promyelocytes, myelocytes and metamyelocytes) > 1% indicates that a LEFT SHIFT is Present. MCH (RBC) [Entitic mass] 28.7 pg 27.0-32.0 [facility] Nucleated RBC/100 WBC (Bld) [Ratio] 0 % 0-5 [facility] MCHC Auto (RBC) [Mass/Vol]Or dered By: Marsha Mendez on 10-20-2022 MCHC (RBC) [Mass/Vol] 31.4 g/dL 32-36 [facility] No Panel InformationOrdered By: Marsha Mendez on 10-20-2022 Estimated GFR (MDRD) Amer 78 mL/min >60 [facility] Comment on above: GFR Calc Estimated GFR (MDRD) Non-Af Amer 64 mL/min >60 [facility] Comment on above: Non- GFR Calc Follicle Stimulating Hormone 119.3 mIU/mL [facility] Comment on above: NORMAL REFERENCE RAN GES FEMALE FOLLICULAR 2.3 - 12.6 mIU/mL MID-CYCLE PEAK 5.2 - 17.5 mIU/mL LUTEAL 1.7 - 12.9 mIU/mL POST-MENOPAUSAL ON MHT 5.9 - 72.8 mIU/mL NOT ON MHT 12.7 - 132.2 mlU/mL MALE 0.7 - 10.8 mIU/mL Luteinizing Hormone 35.0 mIU/mL [facility] Comment on above: NORMAL REFERENCE RAN GES FEMALE FOLLICULAR 1.9 - 26.2 mIU/mL MID-CYCLE PEAK 22.8 - 76.1 mIU/mL LUTEAL 0.6 - 16.6 mIU/mL POST-MENOPAUSAL ON MHT 1.1 - 52.4 mIU/mL NOT ON MHT 8.6 - 61.8 mIU/mL MALE 1.2 - 10.6 mIU/mL Thyroid Stimulating Hormone (TSH) 1.29 uIU/mL 0.358-3.74 [facility] Vitamin D 25-Hydroxy 25.3 ng/mL [facility] Comment on above: Vitamin D 25(OH) Sta tus Range Deficiency <20 ng/mL (50nmol/L) Insufficiency 20 - 30 ng/mL (50 - 75 nmol/L) Sufficiency 30 - 100 ng/mL (75 - 250 nmol/L) Toxicity >100 ng/mL (>250 nmol/L) Platelets bldOrdered By: Jessica Mendez on 10-20-2022 Platelets (Bld) [#/Vol] 394 10*3/uL 150-450 [facility] Serum or plasma albumin abdi urement (mass/volume)Ordered By: Marsha Mendez on 10-20-2022 Albumin [Mass/Vol] 3.7 g/dL 3.2-5.0 [facility] Serum or plasma albumin/glob ulin mass ratioOrdered By: Marsha Mendez on 10-20-2022 Albumin/Globulin [Mass ratio] 1.1 {ratio} 0.9-2.4 [facility] Serum or plasma calcium abdi urement (mass/volume)Ordered By: Marsha Mendez on 10-20-2022 Calcium [Mass/Vol] 8.7 mg/dL 8.5-10.1 [facility] Serum or plasma cholesterol in HDL measurement (mass/volume)Ordered By: Marsha Mendez on 10-20-2022 Cholesterol in HDL [Mass/Vol] 35 mg/dL >40 [facility] Comment on above: The drugs N-Acetylcy steine and Metamizole may falsely depress this assay. Reference Range HDL <40 mg/dL Low HDL Cholesterol HDL >or= 60 mg/dL High HDL Cholesterol Serum or plasma cholesterol in VLDL measurement (mass/volume)Ordered By: Marsha Mendez on 10-20-2022 Cholesterol in VLDL [Mass/Vol] 41 mg/dL 5-40 [facility] Serum or plasma creatinine m easurement (mass/volume)Ordered By: Marsha Mendez on 10-20-2022 Creatinine [Mass/Vol] 0.93 mg/dL 0.55-1.02 [facility] Comment on above: The validity of the calculated GFR & GFRAA in patients over 70 years has not been determined. Clinical correlation is essential. Serum or plasma estradiol (E 2) measurement (mass/volume)Ordered By: Marsha Mendez on 10-20-2022 E2 [Mass/Vol] pg/mL [facility] Comment on above: NORMAL REFERENCE RAN [...] Cholesterol in LDL [Mass/Vol] 167 mg/dL 0-130 [facility] Serum or plasma urea nitroge n measurement (mass/volume)Ordered By: Marsha Mendez on 10-20-2022 Urea nitrogen [Mass/Vol] 14 mg/dL 7-18 [facility] Thin prep Papanicolaou smear with manual screeningOrdered By: Marsha Mendez on 10-20-2022 Thin prep Papanicolaou smear with manual screening 14 U/L 15-37 [facility] Thin prep Papanicolaou smear with manual screening 3 5-15 [facility] Basophil percentageon 12-20- 2022 Bilirubin [Mass/Vol] 0.40 mg/dL 0.20-1.00 [facility] Work Phone: Comment on above: For patients on eltr ombopag therapy, use of Dimension [place] TBIL is not recommended. Chloride [Moles/Vol] 109 mmol/L 98-107 [facility] Work Phone: Cholesterol [Mass/Vol] 227 mg/dL <200 [facility] Work Phone: Comment on above: <200 mg/dL Desirable 200-240 mg/dL Borderline >240 mg/dL High Risk Glucose [Mass/Vol] 120 mg/dL 74-106 [facility] Work Phone: Comment on above: Fasting Glucose resu lt from 100 to 125 mg/dL suggests IMPAIRED HOMEOSTASIS per A.D.A. criteria. Potassium [Moles/Vol] 4.3 mmol/L 3.5-5.1 [facility] Work Phone: Protein [Mass/Vol] 7.5 g/dL 6.4-8.2 [facility] Work Phone: Sodium [Moles/Vol] 140 mmol/L 136-145 [facility] Work Phone: Triglyceride [Mass/Vol] 75 mg/dL <199 [facility] Work Phone: Comment on above: The drugs N-Acetylcy steine and Metamizole may falsely depress this assay.Serum Triglycerides Reference Interval Normal <150 mg/dL Borderline high 150 - 199 mg/dL High 200 - 499 mg/dL Very High > or = 500 mg/dL Laboratory - Chemistry and C hemistry - challengeon 03-11-2022 ALP [Catalytic activity/Vol] 64 U/L 45-117 [facility] Work Phone: ALT [Catalytic activity/Vol] 26 U/L 13-56 [facility] Work Phone: CO2 [Moles/Vol] 28.0 mmol/L 21.0-32.0 [facility] Work Phone: Globulin (S) [Mass/Vol] 3.5 g/dL 2.2-4.2 [facility] Work Phone: Urea nitrogen/Creatinine [Mass ratio] 15.3 mg/mg 01-09 [facility] Work Phone: No Panel Informationon 03-11 Estimated GFR (MDRD) Amer 73 mL/min >60 [facility] Work Phone: Comment on above: GFR Calc Estimated GFR (MDRD) Non-Af Amer 61 mL/min >60 [facility] Work Phone: Comment on above: Non- GFR Calc Serum or plasma albumin abdi urement (mass/volume)on 03-11-2022 Albumin [Mass/Vol] 4.0 g/dL 3.2-5.0 [facility] Work Phone: Serum or plasma albumin/glob ulin mass ratioon 03-11-2022 Albumin/Globulin [Mass ratio] 1.1 {ratio} 0.9-2.4 [facility] Work Phone: Serum or plasma calcium abdi urement (mass/volume)on 03-11-2022 Calcium [Mass/Vol] 9.1 mg/dL 8.5-10.1 [facility] Work Phone: Serum or plasma cholesterol in HDL measurement (mass/volume)on 03-11-2022 Cholesterol in HDL [Mass/Vol] 56 mg/dL >40 [facility] Work Phone: Comment on above: The drugs N-Acetylcy steine and Metamizole may falsely depress this assay. Reference Range HDL <40 mg/dL Low HDL Cholesterol HDL >or= 60 mg/dL High HDL Cholesterol Serum or plasma cholesterol in VLDL measurement (mass/volume)on 03-11-2022 Cholesterol in VLDL [Mass/Vol] 15 mg/dL 5-40 [facility] Work Phone: Serum or plasma creatinine m easurement (mass/volume)on 03-11-2022 Creatinine [Mass/Vol] 0.98 mg/dL 0.55-1.02 [facility] Work Phone: Comment on above: The validity of the calculated GFR & GFRAA in patients over 70 years has not been determined. Clinical correlation is essential. Serum or plasma low density lipoprotein (LDL) cholesterol measurement (mass/volume)on 03-11-2022 Cholesterol in LDL [Mass/Vol] 156 mg/dL 0-130 [facility] Work Phone: Serum or plasma urea nitroge n measurement (mass/volume)on 03-11-2022 Urea nitrogen [Mass/Vol] 15 mg/dL 7-18 [facility] Work Phone: Thin prep Papanicolaou smear with manual screeningon 03-11-2022 Thin prep Papanicolaou smear with manual screening 16 U/L 15-37 [facility] Work Phone: Thin prep Papanicolaou smear with manual screening 3 5-15 [facility] Work Phone: Absolute lymphocyte counton 11-22-2021 Lymphocytes Auto (Unsp spec) [#/Vol] 2.45 10*3/uL 0.83-4.51 [facility] Work Phone: Basophil percentageon 2021 Basophils/100 WBC (Bld) 1.0 % 0-1 [facility] Work Phone: Bilirubin [Mass/Vol] 0.20 mg/dL 0.20-1.00 [facility] Work Phone: Comment on above: For patients on eltr ombopag therapy, use of Dimension [place] TBIL is not recommended. Chloride [Moles/Vol] 108 mmol/L 98-107 [facility] Work Phone: Cholesterol [Mass/Vol] 276 mg/dL <200 [facility] Work Phone: Comment on above: <200 mg/dL Desirable 200-240 mg/dL Borderline >240 mg/dL High Risk Eosinophils/100 WBC (Bld) 5.3 % 0-5 [facility] Work Phone: Glucose [Mass/Vol] 109 mg/dL 74-106 [facility] Work Phone: Comment on above: Fasting Glucose resu lt from 100 to 125 mg/dL suggests IMPAIRED HOMEOSTASIS per A.D.A. criteria. Neutrophils (Bld) [#/Vol] 4.4 10*3/uL 2.0-7.7 [facility] Work Phone: [phone] Neutrophils/100 WBC (Bld) 52.7 % 47-70 [facility] Work Phone: [phone] Potassium [Moles/Vol] 3.9 mmol/L 3.5-5.1 [facility] Work Phone: [phone] Protein [Mass/Vol] 7.5 g/dL 6.4-8.2 [facility] Work Phone: [phone] Sodium [Moles/Vol] 141 mmol/L 136-145 [facility] Work Phone: Triglyceride [Mass/Vol] 140 mg/dL <199 [facility] Work Phone: Comment on above: The drugs N-Acetylcy steine and Metamizole may falsely depress this assay.Serum Triglycerides Reference Interval Normal <150 mg/dL Borderline high 150 - 199 mg/dL High 200 - 499 mg/dL Very High > or = 500 mg/dL WBC (Bld) [#/Vol] 8.4 10*3/uL 4.4-11.0 [facility] Work Phone: Blood erythrocytes count (nu mber/volume)on 11-22-2021 RBC (Bld) [#/Vol] 4.50 10*6/uL 4.2-5.4 [facility] Work Phone: [phone] Blood hemoglobin measurement (mass/volume)on 11-22-2021 Hemoglobin (Bld) [Mass/Vol] 13.2 g/dL 12.0-15.0 [facility] Work Phone: [phone] Blood lymphocytes/100 leukoc yteson 11-22-2021 Lymphocytes/100 WBC (Bld) 29.3 % 19-41 [facility] Work Phone: Blood monocytes/100 leukocyt eson 11-22-2021 Monocytes/100 WBC (Bld) 11.3 % 0-10 [facility] Work Phone: Blood platelet mean volumeon 11-22-2021 Platelet mean volume (Bld) [Entitic vol] 10.3 fL 6.2-12.0 [facility] Work Phone: [phone] Determination of erythrocyte mean corpuscular volume (MCV)on 11-22-2021 MCV (RBC) [Entitic vol] 90.9 fL 81-99 [facility] Work Phone: Hematocrit Auto (Bld) [Volum e fraction]on 11-22-2021 Hematocrit (Bld) [Volume fraction] 40.9 % 37-47 [facility] Work Phone: [phone] Laboratory - Chemistry and C hemistry - challengeon 11-22-2021 ALP [Catalytic activity/Vol] 76 U/L 45-117 [facility] Work Phone: ALT [Catalytic activity/Vol] 21 U/L 13-56 [facility] Work Phone: CO2 [Moles/Vol] 29.0 mmol/L 21.0-32.0 [facility] Work Phone: [phone] Globulin (S) [Mass/Vol] 3.5 g/dL 2.2-4.2 [facility] Work Phone: [phone] Urea nitrogen/Creatinine [Mass ratio] 13.9 mg/mg 10-20 [facility] Work Phone: Laboratory - Hematology and Cell countson 11-22-2021 Erythrocyte distribution width (RBC) [Entitic vol] 45.8 fL 35.1-43.9 [facility] Work Phone: Erythrocyte distribution width (RBC) [Ratio] 13.6 % 11.6-14.6 [facility] Work Phone: Immature granulocytes/100 WBC (Bld) 0.400 % 0.0-0.9 [facility] Work Phone: [phone] Comment on above: IG% - Immature Granu locytes (promyelocytes, myelocytes and metamyelocytes) > 1% indicates that a LEFT SHIFT is Present. MCH (RBC) [Entitic mass] 29.3 pg 27.0-32.0 [facility] Work Phone: Nucleated RBC/100 WBC (Bld) [Ratio] 0 % 0-5 [facility] Work Phone: MCHC Auto (RBC) [Mass/Vol]on 11-22-2021 MCHC (RBC) [Mass/Vol] 32.3 g/dL 32-36 [facility] Work Phone: No Panel Informationon 11-22 Estimated GFR (MDRD) Amer 66 mL/min >60 [facility] Work Phone: Comment on above: GFR Calc Estimated GFR (MDRD) Non-Af Amer 54 mL/min >60 [facility] Work Phone: Comment on above: Non- GFR Calc Platelets bldon 11-22-2021 Platelets (Bld) [#/Vol] 429 10*3/uL 150-450 [facility] Work Phone: Serum or plasma albumin abdi urement (mass/volume)on 11-22-2021 Albumin [Mass/Vol] 4.0 g/dL 3.2-5.0 [facility] Work Phone: Serum or plasma albumin/glob ulin mass ratioon 11-22-2021 Albumin/Globulin [Mass ratio] 1.1 {ratio} 0.9-2.4 [facility] Work Phone: Serum or plasma calcitriol m easurement (mass/volume)on 11-22-2021 1,25-dihydroxyvitamin D3 [Mass/Vol] 37.7 pg/mL 24.8-81.5 [facility] Work Phone: Comment on above: Please note refere nce interval changePerformed at: - Lab[address] [id number] Director: Mendy Hooper MD, Phone: [phone] Serum or plasma calcium abdi urement (mass/volume)on 11-22-2021 Calcium [Mass/Vol] 9.3 mg/dL 8.5-10.1 [facility] Work Phone: Serum or plasma cholesterol in HDL measurement (mass/volume)on 11-22-2021 Cholesterol in HDL [Mass/Vol] 45 mg/dL >40 [facility] Work Phone: Comment on above: The drugs N-Acetylcy steine and Metamizole may falsely depress this assay. Reference Range HDL <40 mg/dL Low HDL Cholesterol HDL >or= 60 mg/dL High HDL Cholesterol Serum or plasma cholesterol in VLDL measurement (mass/volume)on 11-22-2021 Cholesterol in VLDL [Mass/Vol] 28 mg/dL 5-40 [facility] Work Phone: Serum or plasma creatinine m easurement (mass/volume)on 11-22-2021 Creatinine [Mass/Vol] 1.08 mg/dL 0.55-1.02 [facility] Work Phone: Comment on above: The validity of the calculated GFR & GFRAA in patients over 70 years has not been determined. Clinical correlation is essential. Serum or plasma low density lipoprotein (LDL) cholesterol measurement (mass/volume)on 11-22-2021 Cholesterol in LDL [Mass/Vol] 203 mg/dL 0-130 [facility] Work Phone: Serum or plasma urea nitroge n measurement (mass/volume)on 11-22-2021 Urea nitrogen [Mass/Vol] 15 mg/dL 7-18 [facility] Work Phone: Thin prep Papanicolaou smear with manual screeningon 11-22-2021 Thin prep Papanicolaou smear with manual screening 15 U/L 15-37 [facility] Work Phone: Thin prep Papanicolaou smear with manual screening 4 5-15 [facility] Work Phone: Vital Signs Date Time Vital Sign Value Performing Clinician Socorro miller 11-03-2024 16:27-0400 Body temperature 98.9 [degF] Marsha Mendez FABRIC INSPECTOR-C Work Phone: 2(776)597-249691 [place] [address] 11-03-2024 16:27-0400 Diastolic blood pressure 67 mm[Hg] Marsha Mendez FABRIC INSPECTOR-C Work Phone: 8(505)505-661591 [place] [address] 11-03-2024 16:27-0400 Heart rate 71 /min Marsha Mendez FABRIC INSPECTOR-C Work Phone: 0(250)366-008107 [place] [address] 11-03-2024 16:27-0400 Respiratory rate 20 /min Marsha Mendez FABRIC INSPECTOR-C Work Phone: 7(402)839-120207 [place] [address] 11-03-2024 16:27-0400 SaO2% (BldA) [Mass fraction] 94 % Marsha Mendez FABRIC INSPECTOR-C Work Phone: 9(437)740-978807 [place] [address] 11-03-2024 16:27-0400 Systolic blood pressure 132 mm[Hg] Marsha Mendez FABRIC INSPECTOR-C Work Phone: 5(081)258-912507 [place] [address] 11-03-2024 16:00-0400 Inhaled oxygen flow rate 2 L/min Marsha Mendez FABRIC INSPECTOR-C Work Phone: 8(487)711-063407 [place] [address] 11-03-2024 13:18-0400 Body height 160.02 cm Marsha Mendez FABRIC INSPECTOR-C Work Phone: 9(850)883-479107 [place] [address] 11-03-2024 13:18-0400 Body mass index (BMI) [Ratio] 27.7 kg/m2 Marsha Mendez FABRIC INSPECTOR-C Work Phone: 9(958)755-290507 [place] [address] 11-03-2024 13:18-0400 Body weight 71 kg Marsha Mendez FABRIC INSPECTOR-C Work Phone: 8(219)859-667807 [place] [address] 11-03-2024 13:00-0400 Diastolic blood pressure 72 mm[Hg] Marsha Mendez FABRIC INSPECTOR-C Work Phone: 6(656)498-216307 [place] [address] 11-03-2024 13:00-0400 Heart rate 67 /min Marsha Mendez FABRIC INSPECTOR-C Work Phone: 0(826)106-219707 [place] [address] 11-03-2024 13:00-0400 Respiratory rate 18 /min Marsha Mendez FABRIC INSPECTOR-C Work Phone: 8(586)567-168507 [place] [address] 11-03-2024 13:00-0400 Systolic blood pressure 124 mm[Hg] Marsha Mendez FABRIC INSPECTOR-C Work Phone: 7(907)454-124291 [place] [address] 11-03-2024 08:43-0400 Body mass index (BMI) [Ratio] 26.5 kg/m2 Marsha Mendez FABRIC INSPECTOR-C Work Phone: 5(678)682-855191 [place] [address] 11-03-2024 08:43-0400 Body temperature 97.4 [degF] Marsha Mendez FABRIC INSPECTOR-C Work Phone: 4(453)303-767373 [address] 11-03-2024 08:43-0400 Body weight 68.03 kg Marsha Mendez FABRIC INSPECTOR-C Work Phone: 5(352)159-504307 [place] [address] 10-06-2024 10:09-0400 Body mass index (BMI) [Ratio] 27.3 kg/m2 Marsha Mendez FABRIC INSPECTOR-C Work Phone: 8(525)842-158907 [place] [address] 10-06-2024 10:09-0400 Body temperature 97.4 [degF] Marsha Mendez FABRIC INSPECTOR-C Work Phone: 0(635)348-080607 [place] [address] 10-06-2024 10:09-0400 Body weight 69.85 kg Marsha Mendez FABRIC INSPECTOR-C Work Phone: 0(500)246-642407 [place] [address] 10-06-2024 10:09-0400 Diastolic blood pressure 79 mm[Hg] Marsha Mendez FABRIC INSPECTOR-C Work Phone: 0(629)815-517673 [address] 10-06-2024 10:09-0400 Heart rate 64 /min Marsha Mendez FABRIC INSPECTOR-C Work Phone: 0(424)580-622091 [place] [address] 10-06-2024 10:09-0400 Respiratory rate 16 /min Marsha Mendez FABRIC INSPECTOR-C Work Phone: 7(066)514-880007 [place] [address] 10-06-2024 10:09-0400 SaO2% (BldA) [Mass fraction] 94 % Marsha Mendez FABRIC INSPECTOR-C Work Phone: 8(838)322-996307 [place] [address] 10-06-2024 10:09-0400 Systolic blood pressure 117 mm[Hg] Marsha Mendez FABRIC INSPECTOR-C Work Phone: 4(686)257-347407 [place] [address] 07-26-2024 06:23-0400 Body mass index (BMI) [Ratio] 27.3 kg/m2 Marsha Mendez FABRIC INSPECTOR-C Work Phone: 2(025)106-433507 [place] [address] 07-26-2024 06:23-0400 Body weight 69.85 kg Marsha Mendez FABRIC INSPECTOR-C Work Phone: 2(088)704-666707 [place] [address] 07-26-2024 06:23-0400 Diastolic blood pressure 68 mm[Hg] Marsha Mendez FABRIC INSPECTOR-C Work Phone: 9(472)038-078707 [place] [address] 07-26-2024 06:23-0400 Heart rate 58 /min Marsha Mendez FABRIC INSPECTOR-C Work Phone: 8(971)753-343307 [place] [address] 07-26-2024 06:23-0400 Respiratory rate 18 /min Marsha Mendez FABRIC INSPECTOR-C Work Phone: 9(137)050-036407 [place] [address] 07-26-2024 06:23-0400 SaO2% (BldA) [Mass fraction] 94 % Marsha Mendez FABRIC INSPECTOR-C Work Phone: 0(804)843-401107 [place] [address] 07-26-2024 06:23-0400 Systolic blood pressure 111 mm[Hg] Marsha Mendez FABRIC INSPECTOR-C Work Phone: 9(345)106-097107 [place] [address] 07-20-2024 08:00-0400 Body height 160.02 cm Marsha Mendez FABRIC INSPECTOR-C Work Phone: 2(609)705-012207 [place] [address] 07-20-2024 08:00-0400 Body mass index (BMI) [Ratio] 27.3 kg/m2 Marsha Mendez FABRIC INSPECTOR-C Work Phone: 1(753)421-102907 [place] [address] 07-20-2024 08:00-0400 Body temperature 97.4 [degF] Marsha Mendez FABRIC INSPECTOR-C Work Phone: 6(579)725-774007 [place] [address] 07-20-2024 08:00-0400 Body weight 69.85 kg Marsha Mendez FABRIC INSPECTOR-C Work Phone: 4(427)731-236707 [place] [address] 07-20-2024 08:00-0400 Diastolic blood pressure 77 mm[Hg] Marsha Mendez FABRIC INSPECTOR-C Work Phone: 7(446)328-098807 [place] [address] 07-20-2024 08:00-0400 Heart rate 68 /min Marsha Mendez FABRIC INSPECTOR-C Work Phone: [facility] 07-20-2024 08:00-0400 Respiratory rate 18 /min Marsha Mendez FABRIC INSPECTOR-C Work Phone: [facility] 07-20-2024 08:00-0400 SaO2% (BldA) [Mass fraction] 95 % Marshachristianne Mendez FABRIC INSPECTOR-C Work Phone: [facility] 07-20-2024 08:00-0400 Systolic blood pressure 112 mm[Hg] Marsha Mendez FABRIC INSPECTOR-C Work Phone: [facility] 07-11-2024 11:55-0400 Body temperature 97.6 [degF] Melissa Pickering FABRIC INSPECTOR-C Work Phone: [facility] 07-11-2024 11:55-0400 Diastolic blood pressure 45 mm[Hg] Melissa Pickering FABRIC INSPECTOR-C Work Phone: [facility] 07-11-2024 11:55-0400 Heart rate 79 /min Melissa Pickering FABRIC INSPECTOR-C Work Phone: [facility] 07-11-2024 11:55-0400 Respiratory rate 16 /min Melissa Pickering FABRIC INSPECTOR-C Work Phone: [facility] 07-11-2024 11:55-0400 SaO2% (BldA) [Mass fraction] 99 % Melissa Pickering FABRIC INSPECTOR-C Work Phone: [facility] 07-11-2024 11:55-0400 Systolic blood pressure 98 mm[Hg] Melissa Pickering FABRIC INSPECTOR-C Work Phone: [facility] 07-11-2024 08:05-0400 Body height 160.02 cm Melissa Pickering FABRIC INSPECTOR-C Work Phone: [facility] 07-11-2024 08:05-0400 Body mass index (BMI) [Ratio] 26.9 kg/m2 Melissa Pickerign FABRIC INSPECTOR-C Work Phone: [facility] 07-11-2024 08:05-0400 Body weight 69 kg Melissa Pickering FABRIC INSPECTOR-C Work Phone: [facility] 03-21-2024 07:50-0500 Body height 160.02 cm Melissa Pickering FABRIC INSPECTOR-C Work Phone: [facility] 03-21-2024 07:50-0500 Body mass index (BMI) [Ratio] 25.7 kg/m2 Melissa Pickering FABRIC INSPECTOR-C Work Phone: [facility] 03-21-2024 07:50-0500 Body temperature 98.1 [degF] Melissa Pickering FABRIC INSPECTOR-C Work Phone: [facility] 03-21-2024 07:50-0500 Body weight 65.77 kg Melissa Pickering FABRIC INSPECTOR-C Work Phone: [facility] 03-21-2024 07:50-0500 Diastolic blood pressure 68 mm[Hg] Melissa Pickering FABRIC INSPECTOR-C Work Phone: [facility] 03-21-2024 07:50-0500 Heart rate 67 /min Melissa Pickering FABRIC INSPECTOR-C Work Phone: [facility] 03-21-2024 07:50-0500 Respiratory rate 20 /min Melissa Pickering FABRIC INSPECTOR-C Work Phone: [facility] 03-21-2024 07:50-0500 SaO2% (BldA) [Mass fraction] 96 % Melissa Pickering FABRIC INSPECTOR-C Work Phone: [facility] 03-21-2024 07:50-0500 Systolic blood pressure 105 mm[Hg] Melissa Pickering FABRIC INSPECTOR-C Work Phone: [facility] 04-15-2023 07:01-0500 Body height 160.02 cm [facility] Work Phone: [facility] 04-15-2023 07:01-0500 Body mass index (BMI) [Ratio] 25.4 kg/m2 [facility] Work Phone: 7(797)138-205307 [place] [address] 04-15-2023 07:01-0500 Body temperature 94.7 [degF] [facility] Work Phone: 1(333)078-516907 [place] [address] 04-15-2023 07:01-0500 Body weight 65.31 kg [facility] Work Phone: 1(298)602-769007 [place] [address] 04-15-2023 07:01-0500 Diastolic blood pressure 60 mm[Hg] [facility] Work Phone: 6(094)522-724107 [place] [address] 04-15-2023 07:01-0500 Heart rate 70 /min [facility] Work Phone: 6(803)987-279907 [place] [address] 04-15-2023 07:01-0500 Respiratory rate 20 /min [facility] Work Phone: 4(023)104-297507 [place] [address] 04-15-2023 07:01-0500 SaO2% (BldA) [Mass fraction] 99 % [facility] Work Phone: 1(818)974-368607 [place] [address] 04-15-2023 07:01-0500 Systolic blood pressure 101 mm[Hg] [facility] Work Phone: 1(935)598-559607 [place] [address] 10-06-2022 08:27-0400 Body height 160.02 cm [facility] Work Phone: 2(624)488-118707 [place] [address] 10-06-2022 08:27-0400 Body mass index (BMI) [Ratio] 26 kg/m2 [facility] Work Phone: 9(131)788-968507 [place] [address] 10-06-2022 08:27-0400 Body temperature 96.2 [degF] [facility] Work Phone: 8(071)836-312507 [place] [address] 10-06-2022 08:27-0400 Body weight 66.67 kg [facility] Work Phone: 3(247)529-612407 [place] [address] 10-06-2022 08:27-0400 Diastolic blood pressure 62 mm[Hg] [facility] Work Phone: 0(664)544-747107 [place] [address] 10-06-2022 08:27-0400 Heart rate 76 /min [facility] Work Phone: 2(863)847-788807 [place] [address] 10-06-2022 08:27-0400 Respiratory rate 18 /min [facility] Work Phone: [facility] 10-06-2022 08:27-0400 SaO2% (BldA) [Mass fraction] 95 % [facility] Work Phone: [facility] 10-06-2022 08:27-0400 Systolic blood pressure 90 mm[Hg] [facility] Work Phone: [facility] 02-12-2022 09:46-0500 Body height 160.02 cm [facility] Work Phone: [facility] Work Phone: 02-12-2022 09:46-0500 Body mass index (BMI) [Ratio] 26.6 kg/m2 [facility] Work Phone: [facility] Work Phone: 02-12-2022 09:46-0500 Body temperature 97.3 [degF] [facility] Work Phone: [facility] Work Phone: 02-12-2022 09:46-0500 Body weight 68.2 kg [facility] Work Phone: [facility] Work Phone: 02-12-2022 09:46-0500 Diastolic blood pressure 72 mm[Hg] [facility] Work Phone: [facility] Work Phone: 02-12-2022 09:46-0500 Heart rate 67 /min [facility] Work Phone: [facility] Work Phone: 02-12-2022 09:46-0500 Respiratory rate 16 /min [facility] Work Phone: [facility] Work Phone: 02-12-2022 09:46-0500 SaO2% (BldA) [Mass fraction] 96 % [facility] Work Phone: [facility] Work Phone: 02-12-2022 09:46-0500 Systolic blood pressure 116 mm[Hg] [facility] Work Phone: [facility] Work Phone: 01-14-2022 10:39-0400 Body temperature 98 [degF] [facility] Work Phone: [facility] Work Phone: 01-14-2022 10:39-0400 Diastolic blood pressure 66 mm[Hg] [facility] Work Phone: [facility] Work Phone: 01-14-2022 10:39-0400 Heart rate 61 /min [facility] Work Phone: [facility] Work Phone: 01-14-2022 10:39-0400 Respiratory rate 16 /min [facility] Work Phone: [facility] Work Phone: 01-14-2022 10:39-0400 SaO2% (BldA) [Mass fraction] 97 % [facility] Work Phone: [facility] Work Phone: 01-14-2022 10:39-0400 Systolic blood pressure 106 mm[Hg] [facility] Work Phone: [facility] Work Phone: 01-14-2022 09:01-0400 Body height 160.02 cm [facility] Work Phone: [facility] Work Phone: 01-14-2022 09:01-0400 Body mass index (BMI) [Ratio] 26.5 kg/m2 [facility] Work Phone: [facility] Work Phone: 01-14-2022 09:01-0400 Body weight 68 kg [facility] Work Phone: [facility] Work Phone: 12-10-2021 13:17-0400 Body height 160.02 cm [facility] Work Phone: [facility] Work Phone: 12-10-2021 13:17-0400 Body mass index (BMI) [Ratio] 26.6 kg/m2 [facility] Work Phone: [facility] Work Phone: 12-10-2021 13:17-0400 Body temperature 97.4 [degF] [facility] Work Phone: [facility] Work Phone: 12-10-2021 13:17-0400 Body weight 68.2 kg [facility] Work Phone: [facility] Work Phone: 12-10-2021 13:17-0400 Diastolic blood pressure 69 mm[Hg] [facility] Work Phone: [facility] Work Phone: 12-10-2021 13:17-0400 Heart rate 60 /min [facility] Work Phone: [facility] Work Phone: 12-10-2021 13:17-0400 Respiratory rate 18 /min [facility] Work Phone: [facility] Work Phone: 12-10-2021 13:17-0400 SaO2% (BldA) [Mass fraction] 98 % [facility] Work Phone: [facility] Work Phone: 12-10-2021 13:17-0400 Systolic blood pressure 105 mm[Hg] [facility] Work Phone: [facility] Work Phone: 10-16-2021 05:59-0400 Body height 160.02 cm [facility] Work Phone: [facility] Work Phone: 10-16-2021 05:59-0400 Body mass index (BMI) [Ratio] 26.2 kg/m2 [facility] Work Phone: [facility] Work Phone: 10-16-2021 05:59-0400 Body temperature 98.7 [degF] [facility] Work Phone: [facility] Work Phone: 10-16-2021 05:59-0400 Body weight 67.13 kg [facility] Work Phone: [facility] Work Phone: 10-16-2021 05:59-0400 Diastolic blood pressure 70 mm[Hg] [facility] Work Phone: [facility] Work Phone: 10-16-2021 05:59-0400 Heart rate 57 /min [facility] Work Phone: [facility] Work Phone: 10-16-2021 05:59-0400 Respiratory rate 17 /min [facility] Work Phone: [facility] Work Phone: 10-16-2021 05:59-0400 SaO2% (BldA) [Mass fraction] 93 % [facility] Work Phone: [facility] Work Phone: 10-16-2021 05:59-0400 Systolic blood pressure 104 mm[Hg] [facility] Work Phone: [facility] Work Phone: 09-16-2021 10:14-0400 Body mass index (BMI) [Ratio] 26.5 kg/m2 [facility] Work Phone: [facility] Work Phone: 09-16-2021 10:14-0400 Body temperature 97.4 [degF] [facility] Work Phone: [facility] Work Phone: 06-27-2022 10:14-0400 Body weight 68.03 kg [facility] Work Phone: [facility] Work Phone: 09-16-2021 10:14-0400 Diastolic blood pressure 67 mm[Hg] [facility] Work Phone: [facility] Work Phone: 09-16-2021 10:14-0400 Heart rate 65 /min [facility] Work Phone: [facility] Work Phone: 09-16-2021 10:14-0400 Respiratory rate 16 /min [facility] Work Phone: [facility] Work Phone: 09-16-2021 10:14-0400 SaO2% (BldA) [Mass fraction] 97 % [facility] Work Phone: [facility] Work Phone: 09-16-2021 10:14-0400 Systolic blood pressure 104 mm[Hg] [facility] Work Phone: [facility] Work Phone: 05-14-2021 09:52-0500 Body height 160.02 cm [facility] Work Phone: [facility] Work Phone: 05-14-2021 09:52-0500 Body mass index (BMI) [Ratio] 26.5 kg/m2 [facility] Work Phone: [facility] Work Phone: 05-14-2021 09:52-0500 Body temperature 97.4 [degF] [facility] Work Phone: [facility] Work Phone: 05-14-2021 09:52-0500 Body weight 68.03 kg [facility] Work Phone: [facility] Work Phone: 05-14-2021 09:52-0500 Diastolic blood pressure 73 mm[Hg] [facility] Work Phone: [facility] Work Phone: 05-14-2021 09:52-0500 Heart rate 73 /min [facility] Work Phone: [facility] Work Phone: 05-14-2021 09:52-0500 Respiratory rate 16 /min [facility] Work Phone: [facility] Work Phone: 05-14-2021 09:52-0500 SaO2% (BldA) [Mass fraction] 97 % [facility] Work Phone: [facility] Work Phone: 05-14-2021 09:52-0500 Systolic blood pressure 107 mm[Hg] [facility] Work Phone: [facility] Work Phone: Encounters Encounter Date Encounter Type Care Provider Facility Start: 11-07-2024 ambulatory Marsha Mendez Facili ty:[facility] Start: 11-03-2024 Evaluation and manag ement of inpatient Dr. Celia Modi MD -Progressive Care Unit Work Phone: Start: 11-03-2024 ambulatory Melissa Pickering NP Fac ility:[facility] Start: 11-03-2024 Patient encounter procedure Melissa Pickering NP-C -Cat Scan [facility] Work Phone: Start: 10-28-2024 Encounter for other preprocedural examination Melissa Pickering NP [facility] Start: 10-06-2024 End: 10-06-2024 Patient encounter procedure Melissa Pickering NP-C -[facility] Work Phone: Start: 10-06-2024 End: 10-06-2024 ambulatory Marsha Mendez FABRIC INSPECTOR-C Work Phone: -[facility] Start: 10-06-2024 End: 10-06-2024 ambulatory Marsha Mendez Facility:[facility] Start: 09-27-2024 End: 09-27-2024 ambulatory Marsha Mendez FABRIC INSPECTOR-C Work Phone: -Cat Scan [facility] Start: 09-27-2024 End: 09-27-2024 Patient encounter procedure Melissa Pickering FABRIC INSPECTOR-C -Cat Scan [facility] Work Phone: Start: 09-27-2024 End: 09-27-2024 ambulatory Melissa Pickering FABRIC INSPECTOR Facility:[facility] Start: 08-05-2024 End: 08-05-2024 ambulatory Marsha Mendez FABRIC INSPECTOR-C Work Phone: [facility] Work Phone: Start: 08-05-2024 End: 08-05-2024 Patient encounter procedure Melissa Pickering FABRIC INSPECTOR-C -[facility] Work Phone: Start: 08-05-2024 End: 08-05-2024 ambulatory Melissa Pickering FABRIC INSPECTOR Facility:[facility] Start: 07-26-2024 End: 07-26-2024 Patient encounter procedure Tamia Wooten FABRIC INSPECTOR-C -[facility] Work Phone: Start: 07-26-2024 End: 07-26-2024 ambulatory Marsha Mendez Facility:[facility] Start: 07-20-2024 End: 07-20-2024 Patient encounter procedure Melissa Pickering FABRIC INSPECTOR-C -[facility] Work Phone: Start: 07-20-2024 End: 07-20-2024 ambulatory Marsha Mendez Facility:[facility] Start: 07-19-2024 End: 07-19-2024 ambulatory Marsha Mendez FABRIC INSPECTOR-C Work Phone: [facility] Work Phone: Start: 07-19-2024 End: 07-19-2024 Patient encounter procedure [facility] Marsha Mendez FABRIC INSPECTOR-C -[place] [place] Start: 07-19-2024 End: 07-19-2024 ambulatory Marsha Mendez Facility:[facility] Start: 07-11-2024 ambulatory Blanco Ayala Facility: [facility] Start: 07-11-2024 Non-patient / Non-visit Dr. Blanco Ayala MD -[facility] Start: 07-11-2024 End: 07-11-2024 Admission to same day surgery center Dr. Blanco Ayala MD -Endoscopy Work Phone: Start: 07-11-2024 End: 07-11-2024 ambulatory Melissa Pickering FABRIC INSPECTOR-C Work Phone: [facility] Work Phone: Start: 06-23-2024 Non-patient / Non-visit Trinidadmabel Short [facility] Work Phone: Start: 06-23-2024 ambulatory Marsha Mendez Facili ty:[facility] Start: 06-20-2024 End: 06-20-2024 ambulatory Melissa Pickering FABRIC INSPECTOR-C Work Phone: [facility] Work Phone: Start: 06-20-2024 End: 06-20-2024 Patient encounter procedure Melissa Pickering NP-C -Cat Scan, [facility] Work Phone: Start: 06-20-2024 End: 06-20-2024 ambulatory Melissa Pickering NP Facility:[facility] Start: 06-16-2024 End: 06-16-2024 ambulatory Melissa Pickering NP-C Work Phone: [facility] Work Phone: Start: 06-16-2024 End: 06-16-2024 Patient encounter procedure [facility] Marsha Mednez NP-C -Ultrasound, [facility] Work Phone: Start: 06-16-2024 End: 06-16-2024 ambulatory Marsha Mendez Facility:[facility] Start: 06-08-2024 End: 06-08-2024 ambulatory Melissa Pickering NP-C Work Phone: [facility] Work Phone: Start: 06-08-2024 End: 06-08-2024 Patient encounter procedure [facility] Marsha Mendez NP-C -Laboratory, [facility] Start: 06-08-2024 End: 06-08-2024 ambulatory Marsha Mendez Facility:[facility] Start: 03-21-2024 End: 03-21-2024 Patient encounter procedure Melissa Pickering NP-C -[facility] Work Phone: Start: 03-21-2024 End: 03-21-[facility] Start: 03-14-2024 End: 03-14-2024 Patient encounter procedure Melissa Pickering FABRIC INSPECTOR-C -Cat Scan, [facility] Work Phone: Start: 03-14-2024 End: 03-14-2024 ambulatory Melissa Pickering FABRIC INSPECTOR Facility:[facility] Start: 12-22-2023 End: 12-22-2023 ambulatory [facility] Facility:[facility] Start: 12-18-2023 ambulatory [facility] Facility :[facility] Start: 12-18-2023 End: 12-18-2023 ambulatory [facility] Facility:[facility] Start: 12-01-2023 End: 12-01-2023 ambulatory [facility] Facility:[facility] Start: 07-06-2023 End: 07-06-2023 ambulatory [facility] Work Phone: [facility] Work Phone: Start: 07-06-2023 End: 07-06-2023 Patient encounter procedure [facility] Work Phone: [facility]-Laboratory Work Phone: Start: 04-15-2023 End: 04-15-2023 Patient encounter procedure [facility] Work Phone: [facility] Work Phone: Start: 03-12-2023 End: 03-12-2023 ambulatory [facility] Work Phone: Start: 03-12-2023 End: 03-12-2023 Patient encounter procedure [facility]-Cat Scan, [facility] Work Phone: Start: 10-20-2022 End: 10-20-2022 ambulatory [facility] Work Phone: [facility] Work Phone: Start: 10-20-2022 End: 10-20-2022 Patient encounter procedure [facility] Work Phone: [facility]-Laboratory Work Phone: Start: 10-06-2022 End: 10-06-2022 Patient encounter procedure [facility] Work Phone: [facility] Work Phone: Start: 03-11-2022 End: 03-11-2022 ambulatory [facility] Work Phone: [facility] Work Phone: Start: 03-11-2022 End: 03-11-2022 Patient encounter procedure [facility] Work Phone: [facility]-Laboratory Start: 02-27-2022 End: 02-27-2022 ambulatory [facility] Work Phone: [facility] Work Phone: Start: 02-27-2022 End: 02-27-2022 Patient encounter procedure [facility] Work Phone: [facility] Start: 02-12-2022 End: 02-12-2022 Patient encounter procedure [facility] Work Phone: [facility]-Pulmonary Medicine [facility] Start: 01-14-2022 Non-patient / Non-visit [facility] Work Phone: [facility] Start: 01-14-2022 End: 01-14-2022 Admission to same day surgery center [facility] Work Phone: [facility]-Endoscopy Start: 01-14-2022 End: 01-14-2022 ambulatory [facility] Work Phone: [facility] Work Phone: Start: 12-20-2021 End: 12-20-2021 ambulatory [facility] Work Phone: [facility] Work Phone: Start: 12-20-2021 End: 12-20-2021 Patient encounter procedure [facility] Work Phone: [facility]-Sleep Lab Start: 12-10-2021 End: 12-10-2021 Patient encounter procedure [facility] Work Phone: [facility] Start: 11-22-2021 End: 11-22-2021 ambulatory [facility] Work Phone: [facility] Work Phone: Start: 11-22-2021 End: 11-22-2021 Patient encounter procedure [facility] Work Phone: [facility]-Laboratory Start: 11-20-2021 End: 11-20-2021 ambulatory [facility] Work Phone: [facility] Work Phone: Start: 11-20-2021 End: 11-20-2021 Patient encounter procedure [facility] Work Phone: [facility]-Sleep Lab Start: 10-25-2021 End: 10-25-2021 Patient encounter procedure [facility] Work Phone: [facility]-Outpatient Breast Imaging Start: 10-16-2021 End: 10-16-2021 Patient encounter procedure [facility] Work Phone: [facility]-Pulmonary Medicine [facility] Start: 09-16-2021 End: 09-16-2021 Patient encounter procedure [facility] Work Phone: [facility]-Pulmonary Medicine [facility] Start: 08-21-2021 End: 08-21-2021 Patient encounter procedure [facility] Work Phone: [facility]-Sleep Lab Start: 06-04-2021 End: 06-04-2021 Patient encounter procedure [facility] Work Phone: [facility]-Sleep Lab Start: 05-14-2021 End: 05-14-2021 Patient encounter procedure [facility] Work Phone: [facility]-Pulmonary Medicine [facility] Start: 04-16-2021 End: 04-16-2021 Patient encounter procedure [facility] Work Phone: [facility]-Sleep Lab Procedures Date Procedure Procedure Detail Performing Clinician Start: 11-03-2024 Estimated creatinine clearance Marshadaniel Mendez FABRIC INSPECTOR-C Work Phone: Start: 11-03-2024 CT angiography of ch est with contrast Marshadaniel Mendez FABRIC INSPECTOR-C Work Phone: Start: 11-03-2024 Plain chest X-ray Daniella Mendez FABRIC INSPECTOR-C Work Phone: Start: 11-03-2024 Plain chest X-ray Daniellafred Mendez FABRIC INSPECTOR-C Work Phone: Start: 11-03-2024 Biopsy/Inj or Needle Placement Marshadaniel Mendez FABRIC INSPECTOR-C Work Phone: Start: 09-27-2024 CT of chest without contrast Marsha Mendez FABRIC INSPECTOR-C Work Phone: Start: 07-19-2024 Vitamin D, 25-hydrox y measurement Marshachristianne Mendez FABRIC INSPECTOR-C Work Phone: Comment on above: Vitamin D StatusDefi ciency: <20 ng/mL (50nmol/L)Insufficiency: 20-30 ng/mL (50-75 nmol/L)Sufficiency: 30-100 ng/mL (75-250 nmol/L)Toxicity: >100 ng/mL (>250 nmol/L) Start: 07-11-2024 Colonoscopy Melissa Pickering FABRIC INSPECTOR-C Work Phone: Start: 06-20-2024 CT of chest without contrast Melissa Pickering FABRIC INSPECTOR-C Work Phone: Start: 06-16-2024 CT of abdomen Melissa Pickering FABRIC INSPECTOR-C Work Phone: Start: 03-14-2024 CT of chest Melissa Pickering FABRIC INSPECTOR-C Work Phone: Start: 03-12-2023 CT of chest Start: 02-27-2022 CT of chest [facility] Work Phone: Start: 01-14-2022 EGD - PH Probe (MAC) (Right) [facility] Work Phone: Start: 10-25-2021 Screening mammography V [facility] Work Phone: Plan of Treatment Date Care Activity Detail Author Start: 11-03-2024 Verification routine [facility] Start: 11-03-2024 [facility] Start: 11-03-2024 Admission procedure [facility] Start: 11-03-2024 Hospital admission, emergency, from emergency room, medical nature [facility] Start: 11-03-2024 End: 11-03-2024 [facility] Start: 11-03-2024 Following clinical pathway protocol [facility] Start: 11-03-2024 Catheterization of vein [facility] Start: 11-03-2024 Oxygen therapy [facility] Start: 11-03-2024 Patient discharge [facility] Start: 11-03-2024 Vital signs measurements [facility] Start: 10-06-2024 Partial thromboplastin time, activated [facility] Start: 10-06-2024 Platelets [#/volume] in Blood [facility] Start: 10-06-2024 Prothrombin time [facility] Start: 07-11-2024 Colonoscopy w/biopsy single/multiple COLONOSCOPY AND BIOPSY [facility] Start: 07-11-2024 Colsc flx w/rmvl of tumor polyp lesion snare tq COLONOSCOPY W/LESION REMOVAL [facility] Start: 07-11-2024 Egd transoral biopsy single/multiple EGD BIOPSY SINGLE/MULTIPLE [facility] Start: 07-11-2024 Patient discharge [facility] Start: 06-16-2024 CT Abdomen [facility] Start: 06-16-2024 CT of abdomen Abdomen Complete [facility] Start: 01-14-2022 Esophagogastroduodenoscopy transoral diagnostic EGD DIAGNOSTIC BRUSH WASH [facility] Work Phone: Start: 01-14-2022 Patient discharge [facility] Work Phone: Start: 11-22-2021 Vitamin D, 1,25-dihydroxy measurement [facility] Work Phone: CT Chest [facility] CT Chest WO contrast [facility] CT Chest WO contrast [facility] Erythrocyte mean cor puscular volume determination [facility] Hematocrit [Volume F raction] of Blood [facility] Hemoglobin [Mass/volume] in Blood [facility] INR in Blood by Coagulation assay [facility] Leukocytes [#/volume] in Blood [facility] Mean corpuscular hem oglobin concentration determination [facility] Mean corpuscular hem oglobin determination [facility] Neutrophil count [facility] Neutrophil percent d ifferential count [facility] Patient Education RAD RN Dischar ge Instructions Needle Biopsy: Lung RAD RN Procedural Sedation [facility] Work Phone: Patient referral [facility] Work Phone: Platelets [#/volume] in Blood [facility] Polysomnography [facility] Red blood cell count [facility] Red cell distributio n width determination [facility] Troponin T.cardiac [ Mass/volume] in Serum or Plasma by High sensitivity method [facility] Troponin T.cardiac [ Mass/volume] in Serum or Plasma by High sensitivity method [facility] Work Phone: Immunizations Immunization Date Immunization Notes Care Provider Arias whitehead 03-21-2024 Seasonal trivalent influenza vaccine, adjuvanted, preservative free Melissa Pickering FABRIC INSPECTOR-C Work Phone: [facility] 02-21-2019 tetanus toxoid, redu onur diphtheria toxoid, and acellular pertussis vaccine, adsorbed [facility] Work Phone: [facility] 02-21-2019 diphtheria, tetanus toxoids and acellular pertussis vaccine, unspecified formulation [facility] Work Phone: [facility] Work Phone: Payers Date Payer Category Payer Self-pay [id number] 2023 Medicare [id number] Private Health Insurance [facility] [id number] Unknown [id number] Unknown [id number] Unknown [id number] 2.16.8 40.1.842461.3.579.2.462 Unknown [id number] 2.16.8 40.1.042934.3.579.2.462 Unknown [id number] 2.16.8 40.1.148987.3.579.2.462 Unknown [id number] 2.16.8 40.1.247982.3.579.2.462 Unknown [id number] 2.16.8 40.1.002900.3.579.2.462 Unknown [id number] 2.16.8 40.1.201795.3.579.2.462 Unknown [id number] 2.16.8 40.1.353932.3.579.2.462 Unknown [id number] 2.16.8 40.1.770227.3.579.2.462 Unknown [id number] 2.16.8 40.1.349519.3.579.2.462 Unknown [id number] 2.16.8 40.1.892920.3.579.2.462 Unknown [id number] 2.16.8 40.1.894665.3.579.2.462 Unknown [id number] 2.16.8 40.1.222423.3.579.2.462 Unknown [id number] 2.16.8 40.1.717464.3.579.2.462 Unknown [id number] 2.16.8 40.1.439384.3.579.2.462 Unknown [id number] 2.16.8 40.1.427549.3.579.2.462 Unknown [id number] 2.16.8 40.1.792240.3.579.2.462 Unknown [id number] 2.16.8 40.1.830260.3.579.2.462 Unknown [id number] 2.16.8 40.1.199018.3.579.2.462 Unknown [id number] 2.16.8 40.1.291728.3.579.2.462 Unknown [id number] 2.16.8 40.1.346113.3.579.2.462 Unknown [id number] 2.16.8 40.1.332710.3.579.2.462 Social History Date Type Detail Facility Start: 05-14-2021 End: 04-15-2023 Tobacco smoking status NHIS Unknown if ever smoked [facility] Start: 1960 Sex Assigned At Female [facility] Start: 12-01-2023 End: 11-03-2024 Tobacco smoking status NHIS Smokes tobacco daily (finding) [facility] Start: 06-16-2024 End: 07-11-2024 Sex Female (finding) [facility] Not [facility] NEGATED: Highlighted row Not [facility] Medical Equipment Procedure Code Equipment Code Equipment Original Text Equipment Identifier Dates Gastrointestinal telemetric monitoring system ([id number] [facility] Start: 01-14-2022 Goals Date Patient Goal Desired Activity /State Functional Status Date Assessment Result Facility 11-03-2024 Functional status Ambulates [facility] Work Phone: Mental Status Date Assessment Result Facility 11-03-2024 Cognitive function Awake;Alert;A ppropriate;Fol lows Commands [facility] Work Phone: 07-11-2024 Cognitive function Voice/Name [facility] Work Phone: 01-14-2022 Cognitive function Voice/Name;Touch/Shaki ng [facility] Work Phone: Clinical Notes 03-21-2024 to 11-03-2024 Note Date & Type Note Facility 11-03-2024 History and physi shawanda note [facility] 11-03-2024 Radiology Diagnostic study note [facility] Imaging Services [address] [place] [address] CTA Chest W/WO Contrast MR#: [id number] Acct: [id number] Name: MARY AGUILERA Rep #: [id number] : 1960 F 64 From: Alejo Pereira MD PCP: Marsha Mendez [facility], FABRIC INSPECTOR-C Status: REG ER Study:CTA Chest W/WO Contrast Date of Exam: 11/03/24 Exam# [id number] Ordering Dr: Azul Guerrero MD PROCEDURE: CTA [...] Dr. Guerrero at 3 p.m.. Reading Location: [id number] CC: [facility] FABRIC INSPECTOR-C Marsha Mendez; Dr. Italo Guerrero MD ~ Whitewasher: Signed [facility] 11-03-2024 Discharge summary [facility] 11-03-2024 Discharge summary Note Date/Time November 03, 2024 3:02pm [facility] Medical Records Department [address] [place] [address] Emergency Department Summary 11/03/24 MR#: [id number] Acct: [id number] Name: MARY AGUILERA Rep #:[id number] : 1960 64 From: Italo Guerrero MD PCP: SLOAN Vaca, FABRIC INSPECTOR-C Statu s:REG ER Location: ED ADDENDUM by Dr. Italo Guerrero MD on 11/03/24 at 1502 I received a call from the radiologist at 1501. Patient also has evidence of right heart strain and pulmonary infarct. Will inform the hospitalist. 11/03/24 1502<Electronically signed by Italo Guerrero MD> Cosigner Signature (if applicable): cc: SLOAN FABRIC INSPECTOR-Manohar Mendez ~* Signed ADDENDUM by Dr. Italo Guerrero MD on 11/03/24 at 1449 EKG reveals a sinus rhythm rate of 62. FL was 144 ms per cures duration 84 ms. QT duration 418 ms. Central is normal. There is some minimal nonspecific changes noted laterally. 11/03/24 1449<Electronically signed by Italo Guerrero MD> Cosigner Signature (if applicable): cc: SLOAN FABRIC INSPECTOR-Manohar Mendez ~* Signed HPI History of Present [...] lung biopsy. Lung biopsy was performed at [facility]. Post procedure patient developed hypoxia and [...] history: , Just moved back from the [facility] ROS ROS ED Constitutional Constitutional ED: Reports [...] 70.2 H Lymph % (Auto) 16.3 L [place] % (Auto) 8.6 Eos % (Auto) 3.7 [...] Rx Instructions: As directed Primary Care Provider: Marsha Mendez Referrals: Marsha Mendez, FABRIC INSPECTOR-Manohar [Primary Care Provider] - Print Language: Cook Islander Disposition Disposition: Acute Care Hospital [facility] What to do if you have Problems For any increased pain, shortness of breath, bleeding, nausea or vomiting, chestpain, or any unexpected problems, contact your Primary Care Provider. Call [facility] ([phone]) or report to the closest Emergency Room. Call 911 if necessary. 11/03/24 1448 <Electronically signed by Italo Guerrero MD> Cosigner Signature (if applicable): CC: SLOAN FABRIC INSPECTOR-Manohar Mendez ~ Signed [facility] Work Phone: 1(872) 839-427907-09-2025 Radiology Diagnostic study note [facility] Imaging Services [address] [place] [address] [id number] Chest without Contrast MR#: [id number] Acct: [id number] Name: MARY AGUILERA Rep #: [id number] : 1960 F 64 From: Lucie Verduzco MD PCP: SLOAN Vaca, FABRIC INSPECTORJyotiC Status: REG CLI Study:Chest without Contrast Date of Exam: 09/27/24 Exam# [id number] Ordering Dr: Manohar Pickering NP FABRIC INSPECTOR-Manohar PROCEDURE: CHEST WITHOUT CONTRAST 09/27/2024 REASON FOR [...] A PET/CT scan is recommended. Reading Location: [place] [address] CC: IRWIN Pickering; [facility] IRWIN Mendez ~ Whitewasher: Signed [facility]04-21-2025 Procedure note [facility] Medical Records Department [address] [place] [address] Operative Report - CC Letter MR#: [id number] Acct: [id number] Name: MARY AGUILERA Rep #:[id number] : 1960 63 From: Blanco Forman PCP: SLOAN Vaca NP-C Statu s:REG [facility] 07/11/2024 Irwin Gomes Re : Colonoscopy procedure [...] Cosigner Signature: Date (if indicated) CC: SLOAN FABRIC INSPECTOR-C Marsha Mendez; Dr. Blanco Ayala MD ~ Date Dictated: 07/11/24 1046 Date Transcribed: Whitewasher: KRISTIN Signed [facility]04-21-2025 Procedure note [facility] Medical Records Department [address] [place] [address] Colonoscopy Report MR#: [id number] Acct: [id number] Name: MARY AGUILERA Rep #:[id number] : 1960 63 From: Blanco Forman PCP: SLOAN Vaca, FABRIC INSPECTOR-C Statu s:REG SDC Patient Name: Mary Aguilera [...] 1 week. Procedure Code(s): --- Professional --- 38337, Colonoscopy, flexible; with removal of tumor(s), polyp(s), or other lesion(s) by snare technique 20906, 59, Colonoscopy, flexible; with biopsy, single or multiple Diagnosis Code(s): --- Professional --- D12.2, Benign neoplasm of ascending colon D12.3, Benign neoplasm of transverse colon (hepatic flexure or splenic flexure) D12.8, Benign neoplasm of rectum R10.84, Generalized abdominal pain CPT copyright 2021 [employer]. All rights reserved. The codes documented in this report are preliminary and upon certified performance technologist review may be revised to meet current compliance requirements. Blanco Ayala MD 07/11/2024 12:41:10 PM This report has been signed electronically. Number of Addenda: 0 Note Initiated On: 07/11/2024 10:46 AM 07/11/24 1241 Date _ Blanco Ayala MD Cosigner Signature: Date (if indicated) CC: SLOAN Mendez; Dr. Blanco Ayala MD ~ Date Dictated: 07/11/24 1046 Date Transcribed: Whitewasher: KRISTIN Signed [facility]04-21-2025 Consult note [facility] Medical Records Department [address] [facility] [place] [address] Anesthesia Postop Eval II 07/11/24 1235 MR#: [id number] Acct: [id number] Name: MARY AGUILERA Rep #:[id number] : 1960 63 From: Kane Zeng MD PCP: SLOAN Vaca, FABRIC INSPECTOR-C Statu s:REG SDC Y Race: C Location: [place] [address] Anesthesia Postop Eval I Sum Postop Eval [...] Kane Solis Signature: Date CC: ~ Signed [facility]04-21-2025 History and physical note Author Blanco Ayala [facility] Note Date/Time July 11, 2024 10: 10am [facility] Medical Records Department [address] [place] [address] History & Physical Exam 07/11/24 1006 MR#: [id number] Acct: [id number] Name: MARY AGUILERA Rep #:[id number] : 1960 63 From: Blanco Forman PCP: SLOAN Vaca, FABRIC INSPECTOR-C Statu s:REG [facility] Location: [place] [address] History and Physical Patient is 63-year-old female [...] Ayala MD General Surgery Endocrine Surgery Pager: [facility] [address] [place] [address], [facility], [address] [place] [address] Office: [phone] 07/11/24 1010 <Electronically signed by Blanco Ayala MD> Cosigner Signature (if applicable): CC: [facility] IRWIN Mendez; Dr. Blanco Ayala MD~ Signed [facility] Work Phone: 1(976) 435-156304-21-2025 Procedure note [facility] Medical Records Department [address] [place] [address] EGD Report MR#: [id number] Acct: [id number] Name: MARY AGUILERA Rep #:[id number] : 1960 63 From: Blanco Forman PCP: Marsha Mendez, [facility], FABRIC INSPECTOR-C Statu s:REG [facility] Patient Name: Mary Aguilera Procedure Date: 07/11/2024 [...] 1 week. Procedure Code(s): --- Professional --- 20737, Esophagogastroduodenoscopy, flexible, transoral; with biopsy, single or multiple Diagnosis Code(s): --- Professional --- K31.89, Other diseases of stomach and duodenum K31.7, Polyp of stomach and duodenum K22.89, Other specified disease of esophagus R10.13, Epigastric pain R14.0, Abdominal distension (gaseous) R11.0, Nausea CPT copyright 2021 [employer]. All rights reserved. The codes documented in this report are preliminary and upon certified performance technologist review may be revised to meet current compliance requirements. Blanco Ayala MD 07/11/2024 11:41:59 AM This report has been signed electronically. Number of Addenda: 0 Note Initiated On: 07/11/2024 10:18 AM 07/11/24 1142 Date _ Blanco Ayala MD Cosigner Signature: Date (if indicated) CC: [facility] FABRIC INSPECTORAlonso Mendez; Dr. Blanco Ayala MD ~ Date Dictated: 07/11/24 1018 Date Transcribed: Whitewasher: KRISTIN Signed [facility]04-21-2025 Procedure note [facility] Medical Records Department [address] [place] [address] Operative Report - CC Letter MR#: [id number] Acct: [id number] Name: MARY AGUILERA Rep #:[id number] : 1960 63 From: Blanco Forman PCP: SLOAN Vaca, IRWIN Statu s:REG [facility] 07/11/2024 Marsha Lisa, Irwin Re : Upper [...] ~ Date Dictated: 07/11/24 1018 Date Transcribed: Whitewasher: KRISTIN Signed [facility]04-21-2025 Consult note [facility] Medical Records Department [address] [place] [address] Anesthesia Postop Eval I 07/11/24 1141 MR#: [id number] Acct: [id number] Name: MARY AGUILERA Alex Rep #:[id number] : 1960 63 From: Denys Merritt PCP: SLOAN Vaca, GREGORYC Statu s:[facility] Y Race: C Location: [place] [address] Anesthesia: Postop Eval I Current Vital Signs [...] Denys Solis Signature: Date CC: ~ Signed [facility]04-21-2025 History and physical note [facility] Medical Records Department [address] [place] [address] History & Physical Exam 07/11/24 1006 MR#: [id number] Acct: [id number] Name: MARY AGUILERA Alex Rep #:[id number] : 1960 63 From: Blanco Forman PCP: SLOAN Vaca, IRWIN Statu s:[facility] Location: [place] [address] History and Physical Patient is 63-year-old female referred from Dr. Ag[facility] She complains of abdominal discomfort [...] Ayala MD General Surgery Endocrine Surgery Pager: [facility] [address] [place] [address], [facility], [address] [place] [address] Office: [phone] 07/11/24 1010 Cosign Signature (if applicable): CC: SLOAN FABRIC INSPECTOR-C Marsha Mendez; Dr. Blanco Ayala MD~ Signed [facility]04-21-2025 [facility] Medical Records Department [address] [place], [place] [address] History Physical Exam 07/11/24 1006 MR#: [id number] Acct: [id number] Name: MARY AGUILERA Rep #: [id number] : 1960 63 From: Blanco Ayala MD PCP: Marsha Mendez SLOAN, FABRIC INSPECTOR-C Status:REG [facility] Location: [place] [address] History and Physical Patient is 63-year-old female [...] Ayala MD General Surgery Endocrine Surgery Pager: [facility] [address] [place] [address], Outpatient [place], [address] [place] [address] Office: [phone] 07/11/24 1010 Cosigner Signature (if applicable): CC: [facility] FABRIC INSPECTOR-C Marsha Mendez; Dr. Blanco Ayala MD [facility] Consult note Author Kane Zeng [facility] Note Date/Time July 11, 2024 7:5 2am [facility] Medical Records Department [address] [place] [address] Pre-Anesthesia Evaluation 07/11/24 0751 MR#: [id number] Acct: [id number] Name: MARY AGUILERA Rep #:[id number] : 1960 63 From: Kane Zeng MD PCP: Marsha Mendez, [facility], FABRIC INSPECTOR-C Statu s:[facility] Y Race: C Location: [...] Procedure(s): EGD/CSCOPE Anesthesia History 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: 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 Hx Hospitalization No 07/06/24 10:35 Any Problems [...] take am of surgery PONV PONV - guest service manager: PONV - guest service manager Female Yes 07/06/24 10:35 HX of Motion [...] 03/21/24 07:50 Respiratory Assessment Respiratory Assessment - guest service manager: Respiratory Tract Infection Hx - guest service manager Hx Respiratory Tract Infection No 07/06/24 10:35 STOP Sleep Apnea STOP Sleep Apnea - guest service manager: STOP Sleep Apnea - guest service manager Hx Hypertension No 07/06/24 10:35 Hx Sleep [...] Tobacco Use History Tobacco Use History - guest service manager: Tobacco Use History - guest service manager Tobacco Use Smoking Status Current every day smoker 07/06/24 10:35 Hx Tobacco Use Yes 07/06/24 10:35 Years Smoking Packs Smoked per Day Smoking Cessation Date was within the last 15 years Hx Smoking Cessation Date Hx Smoking Cessation Counseling Hematologic Medial History Hematologic Hx - guest service manager: 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 Hx of Blood Transfusion No 07/06/24 10:35 [...] confused, unrespo /Reproduction History /Reproductive History - guest service manager: /Reproductive Hx- guest service manager Hx Now No 07/06/24 10:35 Gestational Age [...] colonoscopy Cyst Removal from breast History of [facility] Hx of appendectomy Social History Smoking Status: Current every day smoker tobacco type: cigarettes alcohol intake: never substance use type: does not use caffeine: Yes what type of physical activity do you participate in: walking frequency: 3-4 times per week seatbelt use: always do you feel safe at home: Yes additional social history: , Just moved back from the [facility] Review of Systems (Anesthesia) ROS Narrative System reviewed and no additional complaints, except as documented. 07/11/24 0752 <Electronically signed by Kane Zeng MD > Date _ Kane Zeng MD Cosigner Signature: Date CC: ~ Signed [facility] Work Phone: 1(352) 585-864404-21-2025 Evaluation note* Diagnosis Onset Date Resolution Status [...] years chronic July 26, 2024 11 :17am [facility] Work Phone: 1(199) 389-654304-21-2025 Evaluation note* Diagnosis Onset Date Resolution Status [...] pack years chronic October 06, 2024 1:05pm [facility] Work Phone: 1(723) 111-405004-21-2025 Evaluation note* Diagnosis Onset Date Resolution Status [...] 20 pack years chronic November 03 4:33pm [facility] Work Phone: 1(474) 995-473804-21-2025 Consult note [facility] Medical Records Department [address] [place] [address] Pre-Anesthesia Evaluation 07/11/24 0751 MR#: [id number] Acct: [id number] Name: MARY AGUILERA Rep #:[id number] : 1960 63 From: Kane Zeng MD PCP: Marsha Mendez, VSC, FABRIC INSPECTOR-C Statu s:[facility] Y Race: C Location: [...] Procedure(s): EGD/CSCOPE Anesthesia History 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: 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 Hx Hospitalization No 07/06/24 10:35 Any Problems [...] take am of surgery PONV PONV - guest service manager: PONV - guest service manager Female Yes 07/06/24 10:35 HX of Motion [...] 03/21/24 07:50 Respiratory Assessment Respiratory Assessment - guest service manager: Respiratory Tract Infection Hx - guest service manager Hx Respiratory Tract Infection No 07/06/24 10:35 STOP Sleep Apnea STOP Sleep Apnea - guest service manager: STOP Sleep Apnea - guest service manager Hx Hypertension No 07/06/24 10:35 Hx Sleep [...] Tobacco Use History Tobacco Use History - guest service manager: Tobacco Use History - guest service manager Tobacco Use Smoking Status Current every day smoker 07/06/24 10:35 Hx Tobacco Use Yes 07/06/24 10:35 Years Smoking Packs Smoked per Day Smoking Cessation Date was within the last 15 years Hx Smoking Cessation Date Hx Smoking Cessation Counseling Hematologic Medial History Hematologic Hx - guest service manager: Hematologic 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 07/11/24 0752 > Date _ Kane Zeng MD Cosigner Signature: Date CC: ~ Signed [facility]04-01-2025 Radiology Diagnostic study note [facility] Imaging Services [address] [address] Chest without Contrast MR#: [id number] Acct: [id number] Name: MARY AGUILERA Rep #: [id number] : 1960 F 63 From: Manuela Lennon MD PCP: SLOAN Vaca, FABRIC INSPECTOR-C Status: REG CLI Study:Chest without Contrast Date of Exam: 06/20/24 Exam# [id number] Ordering Dr: Manohar Pickering NP FABRIC INSPECTOR-C EXAM: CT Chest Without Intravenous Contrast CLINICAL [...] with PET-CT or tissue biopsy. Reading Location: [facility] CC: IRWIN Pickering; [facility] FABRIC INSPECTORAlonso Mendez ~ Whitewasher: Signed [facility]03-27-2025 Radiology Diagnostic study note [facility] Imaging Services [address] [place] [address] Abdomen Complete MR#: [id number] Acct: [id number] Name: MARY AGUILERA Rep #: [id number] : 1960 F 63 From: Jarred Urias MD PCP: SLOAN Vaca, FABRIC INSPECTOR-C Status: REG CLI Study:Abdomen Complete Date of Exam: Exam# [id number] Ordering Dr: Marsha Mendez FABRIC INSPECTOR-C PROCEDURE: ABDOMEN COMPLETE 06/16/2024 REASON FOR EXAM: [...] Study otherwise appears within limits. Reading Location: [id number] CC: [facility] FABRIC INSPECTOR-C Marsha Mendez ~ Whitewasher: Signed [facility]12-30-2024 Evaluation note* Diagnosis Onset Date Resolution Status Admit Date Lung nodule acute February 1:37pm MARYANN (obstructive sleep apnea) chronic March 21, 2 024 1:37pm Smoking greater than 20 pack years chronic March 21, 2 024 1:37pm [facility] Work Phone: 1(695) 435-890012-30-2024 Evaluation note* Diagnosis Onset Date Resolution Status Admit Date Lung nodule acute February 1:37pm MARYANN (obstructive sleep apnea) chroni c March 21, 2024 1:37pm Smoking greater than 20 pack years chronic March 21, 2 024 1:37pm Abdominal discomfort, epigastric acute July 11, 2024 7:31am Diverticulosis acute June 7:31am GERD (gastroesophageal reflu x disease) acute July 11, 2024 7:31am [facility] Work Phone: Consult note Author Denys Merritt [facility] Note Date/Time July 11, 2024 11: 41am [facility] Medical Records Department [address] [place] [address] Anesthesia Postop Eval I 07/11/24 114 MR#: [id number] Acct: [id number] Name: MARY AGUILERA Rep #:[id number] : 1960 63 From: Denys Merritt PCP: SLOAN Vaca, FABRIC INSPECTOR-C Statu s:[facility] Y Race: C Location: [place] [address] Anesthesia: Postop Eval I Current Vital Signs [...] Denys Solis Signature: Date CC: ~ Signed [facility] Work Phone: Consuxq note Author Kane Zeng [facility] Note Date/Time July 11, 2024 12: 35pm [facility] Medical Records Department [address] [place] [address] Anesthesia Postop Eval II 07/11/24 1235 MR#: [id number] Acct: [id number] Name: MARY AGUILERA Rep #:[id number] : 1960 63 From: Kane Zeng MD PCP: Marsha Mendez C, FABRIC INSPECTOR-C Statu s:[facility] Y Race: C Location: [place] [address] Anesthesia Postop Eval I Sum Postop Eval [...] MD Cosigner Signature: Date CC: ~ Signed [facility] Work Phone: Evaluation note* Diagnosis Onset Date Resolution Status MARYANN (obstructive sleep apnea) acute [facility] Work Phone: Evaluation note* Diagnosis Onset Date Resolution Status MARYANN (obstructive sleep apnea) acute MARYANN (obstructive sleep apnea) acute [facility] Work Phone: Evaluation note* Diagnosis Onset Date Resolution Status MARYANN (obstructive sleep apnea) acute MARYANN (obstructive sleep apnea) acute GERD (gastroesophageal reflux disease) acute [facility] Work Phone: Evaluation note* Diagnosis Onset Date Resolution Status GERD (gastroesophageal reflux disease) acute Sleep apnea chronic Smoking greater than 20 pack years chronic [facility] Work Phone: Evaluation note* Diagnosis Onset Date Resolution Status MARYANN (obstructive sleep apnea) chronic Smoking greater than 20 pack years chronic [facility] Work Phone: Evaluation noteNo assessment information available [facility] Work Phone: History and physical note Author Celia Modi [facility] Note Date/Time November 03, 2024 4: 55pm [facility] Medical Records Department [address] [place] [address] H&P Exam - Hospitalist 11/03/24 1633 MR#: [id number] Acct: [id number] Name: MARY AGUILERA Rep #:[id number] : 1960 64 From: Celia Modi MD PCP: SLOAN Vaca, FABRIC INSPECTOR-C Statu s:[facility] [place] Location: [place] [address] HPI - General General Date of Admission: 11/03/24 Date of Service: 11/03/24 Chief Complaint: Hemoptysis, low O2 HPI Narrative MARY AGUILERA, is a 64-year-old female history of depression, anxiety, GERD, asthma, tobacco use presented to [facility] ED 11/03/2024 after abiopsy of her [...] the site of biopsy on the left. [facility] Medical History Wears glasses Arthritis Shortness of [...] colonoscopy Cyst Removal from breast History of [facility] Hx of appendectomy Social History Smoking Status: Current every day smoker tobacco type: cigarettes alcohol intake: never substance use type: does not use caffeine: Yes what type of physical activity do you participate in: walking frequency: 3-4 times per week seatbelt use: always do you feel safe at home: Yes additional social history: , Just moved back from the [facility] ROS ROS Narrative General: Denies fever/chills HENT: [...] 70.2 H, Lymph % (Auto) 16.3 L, [place] % (Auto) 8.6, Eos % (Auto) 3.7, [...] Dr. Guerrero at 3 p.m.. Reading Location: [facility] Assessment & Plan Assessment/Plan (1) Bilateral pulmonary [...] Modi MD Charges/Coding Visit Charges Inpatient E&M: 89762 Init Hosp L2 11/03/24 0656 <Electronically signed by Celia Modi MD> Cosigner Signature (if applicable): CC: [facility] FABRIC INSPECTORJyotiC Marsha Mendez; Dr. Celia Modi MD~ Signed [facility] Work Phone: Reason for referral (narrative)No reason for referral information available[facility] Work Phone: Chief Complaint and Reason [...] Will No January 09 2:55pm Power of Program Schedule Clerk No January 09, 2022 2:55pm Advance Directive Response Recorded Date/ Time Living Will No January 09 1:55pm Power of Program Schedule Clerk No January 09, 2022 1:55pm Advance Directive Response Recorded Date/ Time Living Will No January 09 2:55pm Do you have a Healthcare Power of Program Schedule Clerk? No January 09, 2022 2:55pm Advance Directive Response Recorded Date/ Time Living Will No January 09 2:55pm Do you have a Healthcare Power of Program Schedule Clerk? No January 09, 2022 2:55pm Living Will No July 06, 2024 10:35am Do you have a Healthcare Power of Program Schedule Clerk? No July 06, 2024 10:35am Advance Directive Response Recorded Date/ Time Living Will No July 06, 2024 10:35am Do you have a Healthcare Power of Program Schedule Clerk? No July 06, 2024 10:35am Advance Directive Response Recorded Date/ Time Living Will No July 06, 2024 10:35am Do you have a Healthcare Power of Program Schedule Clerk? No July 06, 2024 10:35am Do you have a Healthcare Power of Program Schedule Clerk? No November 03, 2024 1:18pm Summary Purpose [...] Team Status: Active Member Role Status Dates [facility] Family Provider Active [facility] Primary Care Provider A ctive Team Status: Inactive Member Role Status Dates [facility] Primary Care Provider, Referring Provider Active Melissa Pickering FABRIC INSPECTOR, FABRIC INSPECTOR-C Attending Provider Active Team Status: Inactive Member Role Status Dates [facility] Primary Care Provider, Referring Provider Active Marsha Mendez FABRIC INSPECTOR, FABRIC INSPECTOR-C Attending Provider, Other Pr ovider Active Team Status: Inactive Member Role Status Dates [facility] Primary Care Provider A ctive Melissa Pickering FABRIC INSPECTOR, FABRIC INSPECTOR-C Attending Provider, Referrin g Provider Active Team Status: Inactive Member Role Status Dates [facility] Primary Care Provider, Referring Provider Active Dr. Jim Lama MD Attending Provider Active Team Status: Inactive Member Role Status Dates [facility] Primary Care Provider A ctive Marsha Mendez VSC, FABRIC INSPECTOR-C Attending Provider Active Team Status: Active Member Role Status Dates Marsha Mendez VSC, FABRIC INSPECTOR-C Primary Care Provider Activ e Team Status: Inactive Member Role Status Dates Melissa Pickering FABRIC INSPECTOR, FABRIC INSPECTOR-C Attending Provider Active Start: March 14, 2024 End: March 14, 2024 Melissa Pickering FABRIC INSPECTOR, FABRIC INSPECTOR-C Referring Provider Active Start: March 14, 2024 End: March 14, 2024 Marsha Mendez VSC, FABRIC INSPECTOR-C Primary Care Provider Activ e Start: March 14, 2024 End: March 14, 2024 Team Status: Inactive Member Role Status Dates [facility] Referring Provider Active Start: February End: March 21, 2024 Melissa Pickering FABRIC INSPECTOR, FABRIC INSPECTOR-C Attending Provider Active Start: March 21, 2024 End: March 21, 2024 Marsha LISA, FABRIC INSPECTOR-C Primary Care Provider Activ e Start: March 21, 2024 End: March 21, 2024 Team Status: Inactive Member Role Status Dates Marsha Mendez VSC, FABRIC INSPECTOR-C Primary Care Provider Activ e Start: June 08, 2024 End: June 08, 2024 Marsha SCOTTC, FABRIC INSPECTOR-C Attending Provider Active Start: June 08, 2024 End: June 08, 2024 Team Status: Active Member Role Status Dates Marsha Mendez VSC, FABRIC INSPECTOR-C Primary Care Provider Activ e Start: June 16, 2024 Marsha SCOTTC, FABRIC INSPECTOR-C Attending Provider Active Start: June 16, 2024 Marsha Mendez VSC, FABRIC INSPECTOR-C Referring Provider Active Start: June 16, 2024 Team Status: Inactive Member Role Status Dates Marsha Mendez VSC, FABRIC INSPECTOR-C Primary Care Provider Activ e Start: June 16, 2024 End: June 16, 2024 Marsha Liu SCOTTC, FABRIC INSPECTOR-C Attending Provider Active Start: June 16, 2024 End: June 16, 2024 Marsha SCOTTC, FABRIC INSPECTOR-C Referring Provider Active Start: June 16, 2024 End: June 16, 2024 Team Status: Active Member Role Status Dates Marsha SCOTTC, FABRIC INSPECTOR-C Primary Care Provider Activ e Start: June 20, 2024 Melissa Pickering FABRIC INSPECTOR, FABRIC INSPECTOR-C Attending Provider Active Start: June 20, 2024 Melissa Pickering FABRIC INSPECTOR, FABRIC INSPECTOR-C Referring Provider Active Start: June 20, 2024 Team Status: Inactive Member Role Status Dates Marsha SCOTTC, FABRIC INSPECTOR-C Primary Care Provider Activ e Start: June 20, 2024 End: June 20, 2024 Melissa Pickering FABRIC INSPECTOR, FABRIC INSPECTOR-C Attending Provider Active Start: June 20, 2024 End: June 20, 2024 Melissa Pickering FABRIC INSPECTOR, FABRIC INSPECTOR-C Referring Provider Active Start: June 20, 2024 End: June 20, 2024 Team Status: Active Member Role Status Dates Marsha SCOTTManohar, FABRIC INSPECTOR-C Primary Care Provider Activ e Start: June 23, 2024 Trinidad Short Attending Provider Active Start: 2024 Team Status: Inactive Member Role Status Dates Marsha SCOTTC, FABRIC INSPECTOR-C Primary Care Provider Activ e Start: July 11, 2024 End: July 11, 2024 Dr. Blanco Ayala MD Attending Provider Active Start: July 11, 2024 End: July 11, 2024 Dr. Blanco Ayala MD Referring Provider Active Start: July 11, 2024 End: July 11, 2024 Team Status: Active Member Role Status Dates Marsha SCOTTManohar, FABRIC INSPECTOR-C Primary Care Provider Activ e Start: July 11, 2024 Dr. Blanco Ayala MD Attending Provider Active Start: July 11, 2024 Dr. Blanco Ayala MD Referring Provider Active Start: July 11, 2024 Dr. Blanco Ayala MD Other Provider Active Sta rt: July 11, 2024 Team Status: Inactive Member Role Status Dates Marsha SCOTTManohar, FABRIC INSPECTOR-C Primary Care Provider Activ e Start: July 19, 2024 End: July 19, 2024 Marsha Liu LISA, FABRIC INSPECTOR-C Attending Provider Active Start: July 19, 2024 End: July 19, 2024 Team Status: Inactive Member Role Status Dates Marsha Liu VSC, FABRIC INSPECTOR-C Primary Care Provider Activ e Start: July 20, 2024 End: July 20, 2024 Marsha Mendez VSC, FABRIC INSPECTOR-C Referring Provider Active Start: July 20, 2024 End: July 20, 2024 Melissa Pickering FABRIC INSPECTOR, FABRIC INSPECTOR-C Attending Provider Active Start: July 20, 2024 End: July 20, 2024 Team Status: Inactive Member Role Status Dates Marsha Liu VSC, FABRIC INSPECTOR-C Primary Care Provider Activ e Start: July 26, 2024 End: July 26, 2024 Marsha Mendez VSC, FABRIC INSPECTOR-C Referring Provider Active Start: July 26, 2024 End: July 26, 2024 Tamia Wooten FABRIC INSPECTOR, FABRIC INSPECTOR-C Attending Provider Active Start: July 26, 2024 End: July 26, 2024 Team Status: Inactive Member Role Status Dates Marsha Mendez VSC, FABRIC INSPECTOR-C Primary Care Provider Activ e Start: August 05, 2024 End: August 05, 2024 Melissa Pickering FABRIC INSPECTOR, FABRIC INSPECTOR-C Attending Provider Active Start: August 05, 2024 End: August 05, 2024 Melissa Pickering FABRIC INSPECTOR, FABRIC INSPECTOR-C Referring Provider Active Start: August 05, 2024 End: August 05, 2024 Team Status: Active Member Role/Relationship Status Dates Marsha Mendez VSC, FABRIC INSPECTOR-C Primary Care Provider Activ e Team Status: Inactive Member Role/Relationship Status Dates Marsha Mendez VSC, FABRIC INSPECTOR-C Primary Care Provider Activ e Start: June 08, 2024 End: June 08, 2024 Marsha Mendez VSC, FABRIC INSPECTOR-C Attending Provider Active Start: June 08, 2024 End: June 08, 2024 Team Status: Inactive Member Role/Relationship Status Dates Marsha Mendez VSC, FABRIC INSPECTOR-C Primary Care Provider Activ e Start: June 16, 2024 End: June 16, 2024 Marsha Mendez VSC, FABRIC INSPECTOR-C Attending Provider Active Start: June 16, 2024 End: June 16, 2024 Marsha Mendez VSC, FABRIC INSPECTOR-C Referring Provider Active Start: June 16, 2024 End: June 16, 2024 Team Status: Inactive Member Role/Relationship Status Dates Marsha Mendez VSC, FABRIC INSPECTOR-C Primary Care Provider Activ e Start: June 20, 2024 End: June 20, 2024 Melissa Pickering FABRIC INSPECTOR, FABRIC INSPECTOR-C Attending Provider Active Start: June 20, 2024 End: June 20, 2024 Melissa Pickering FABRIC INSPECTOR, FABRIC INSPECTOR-C Referring Provider Active Start: June 20, 2024 End: June 20, 2024 Team Status: Active Member Role/Relationship Status Dates Marsha Liu VSC, FABRIC INSPECTOR-C Primary Care Provider Activ e Start: June 23, 2024 Trinidad Short Attending Provider Active Start: 2024 Team Status: Inactive Member Role/Relationship Status Dates Marsha Liu VSC, FABRIC INSPECTOR-C Primary Care Provider Activ e Start: July 11, 2024 End: July 11, 2024 Dr. Blanco Ayala MD Attending Provider Active Start: July 11, 2024 End: July 11, 2024 Dr. Blanco Ayala MD Referring Provider Active Start: July 11, 2024 End: July 11, 2024 Team Status: Active Member Role/Relationship Status Dates Marshachristianne Mendez VSC, FABRIC INSPECTOR-C Primary Care Provider Activ e Start: July 11, 2024 Dr. Blanco Ayala MD Attending Provider Active Start: July 11, 2024 Dr. Blanco Ayala MD Referring Provider Active Start: July 11, 2024 Dr. Blanco Ayala MD Other Provider Active Sta rt: July 11, 2024 Team Status: Inactive Member Role/Relationship Status Dates Marsha Liu VSC, FABRIC INSPECTOR-C Primary Care Provider Activ e Start: July 19, 2024 End: July 19, 2024 Marsha Mendez VSC, FABRIC INSPECTOR-C Attending Provider Active Start: July 19, 2024 End: July 19, 2024 Team Status: Inactive Member Role/Relationship Status Dates Marsha Liu VSC, FABRIC INSPECTOR-C Primary Care Provider Activ e Start: July 20, 2024 End: July 20, 2024 Marsha Mendez VSC, FABRIC INSPECTOR-C Referring Provider Active Start: July 20, 2024 End: July 20, 2024 Melissa Pickering FABRIC INSPECTOR, FABRIC INSPECTOR-C Attending Provider Active Start: July 20, 2024 End: July 20, 2024 Team Status: Inactive Member Role/Relationship Status Dates Marsha Liu VSC, FABRIC INSPECTOR-C Primary Care Provider Activ e Start: July 26, 2024 End: July 26, 2024 Marsha Mendez VSC, FABRIC INSPECTOR-C Referring Provider Active Start: July 26, 2024 End: July 26, 2024 Tamia Wooten FABRIC INSPECTOR, FABRIC INSPECTOR-C Attending Provider Active Start: July 26, 2024 End: July 26, 2024 Team Status: Inactive Member Role/Relationship Status Dates Marshachristianne Mendez VSC, FABRIC INSPECTOR-C Primary Care Provider Activ e Start: August 05, 2024 End: August 05, 2024 eMlissa Pickering FABRIC INSPECTOR, FABRIC INSPECTOR-C Attending Provider Active Start: August 05, 2024 End: August 05, 2024 Melissa Pickering FABRIC INSPECTOR, FABRIC INSPECTOR-C Referring Provider Active Start: August 05, 2024 End: August 05, 2024 Team Status: Inactive Member Role/Relationship Status Dates Marshachristianne Mendez VSC, FABRIC INSPECTOR-C Primary Care Provider Activ e Start: September 27, 2024 End: September 27, 2024 Melissa Pickering FABRIC INSPECTOR, FABRIC INSPECTOR-C Attending Provider Active Start: September 27, 2024 End: September 27, 2024 Melissa Pickering FABRIC INSPECTOR, FABRIC INSPECTOR-C Referring Provider Active Start: September 27, 2024 End: September 27, 2024 Team Status: Inactive Member Role/Relationship Status Dates Marsha Liu VSC, FABRIC INSPECTOR-C Primary Care Provider Activ e Start: October 06, 2024 End: October 06, 2024 Marsha Mendez VSC, FABRIC INSPECTOR-C Referring Provider Active Start: October 06, 2024 End: October 06, 2024 Melissa Pickering FABRIC INSPECTOR, FABRIC INSPECTOR-C Attending Provider Active Start: October 06, 2024 End: October 06, 2024 Team Status: Active Member Role/Relationship Status Dates Marshachristianne Mendez VSC, FABRIC INSPECTOR-C Primary Care Provider Activ e Start: October 06, 2024 Melissa Pickering FABRIC INSPECTOR, FABRIC INSPECTOR-C Attending Provider Active Start: October 06, 2024 Melissa Pickering FABRIC INSPECTOR, FABRIC INSPECTOR-C Referring Provider Active Start: October 06, 2024 Team Status: Inactive Member Role/Relationship Status Dates Marsha Mendez VSC, FABRIC INSPECTOR-C Primary Care Provider Activ e Start: June 16, 2024 End: June 16, 2024 Marsha Mendez VSC, FABRIC INSPECTOR-C Attending Provider Active Start: June 16, 2024 End: June 16, 2024 Marsha Mendez VSC, FABRIC INSPECTOR-C Referring Provider Active Start: June 16, 2024 End: June 16, 2024 Team Status: Inactive Member Role/Relationship Status Dates Marsha SCOTTManohar, FABRIC INSPECTOR-C Primary Care Provider Activ e Start: June 20, 2024 End: June 20, 2024 Melissa Pickering FABRIC INSPECTOR, FABRIC INSPECTOR-C Attending Provider Active Start: June 20, 2024 End: June 20, 2024 Melissa Pickering FABRIC INSPECTOR, FABRIC INSPECTOR-C Referring Provider Active Start: June 20, 2024 End: June 20, 2024 Team Status: Active Member Role/Relationship Status Dates Marsha SCOTTC, FABRIC INSPECTOR-C Primary Care Provider Activ e Start: June 23, 2024 Trinidad Short Attending Provider Active Start: 2024 Team Status: Inactive Member Role/Relationship Status Dates Marsha Liu VSC, FABRIC INSPECTOR-C Primary Care Provider Activ e Start: July 11, 2024 End: July 11, 2024 Dr. Blanco Ayala MD Attending Provider Active Start: July 11, 2024 End: July 11, 2024 Dr. Blanco Ayala MD Referring Provider Active Start: July 11, 2024 End: July 11, 2024 Team Status: Active Member Role/Relationship Status Dates Marsha Mendez VSC, FABRIC INSPECTOR-C Primary Care Provider Activ e Start: July 11, 2024 Dr. Blanco Ayala MD Attending Provider Active Start: July 11, 2024 Dr. Blanco Ayala MD Referring Provider Active Start: July 11, 2024 Dr. Blanco Ayala MD Other Provider Active Sta rt: July 11, 2024 Team Status: Inactive Member Role/Relationship Status Dates Marsha Mendez VSC, FABRIC INSPECTOR-C Primary Care Provider Activ e Start: July 19, 2024 End: July 19, 2024 Marsha Liu VSC, FABRIC INSPECTOR-C Attending Provider Active Start: July 19, 2024 End: July 19, 2024 Team Status: Inactive Member Role/Relationship Status Dates Marsha Mendez VSC, FABRIC INSPECTOR-C Primary Care Provider Activ e Start: July 20, 2024 End: July 20, 2024 Marsha SCOTTC, FABRIC INSPECTOR-C Referring Provider Active Start: July 20, 2024 End: July 20, 2024 Melissa Pickering FABRIC INSPECTOR, FABRIC INSPECTOR-C Attending Provider Active Start: July 20, 2024 End: July 20, 2024 Team Status: Inactive Member Role/Relationship Status Dates Marsha Mendez VSC, FABRIC INSPECTOR-C Primary Care Provider Activ e Start: July 26, 2024 End: July 26, 2024 Marsha Liu VSC, FABRIC INSPECTOR-C Referring Provider Active Start: July 26, 2024 End: July 26, 2024 Tamia Wooten FABRIC INSPECTOR, FABRIC INSPECTOR-C Attending Provider Active Start: July 26, 2024 End: July 26, 2024 Team Status: Inactive Member Role/Relationship Status Dates Marsha Liu VSC, FABRIC INSPECTOR-C Primary Care Provider Activ e Start: August 05, 2024 End: August 05, 2024 Melissa Pickering FABRIC INSPECTOR, FABRIC INSPECTOR-C Attending Provider Active Start: August 05, 2024 End: August 05, 2024 Melissa Pickering FABRIC INSPECTOR, FABRIC INSPECTOR-C Referring Provider Active Start: August 05, 2024 End: August 05, 2024 Team Status: Inactive Member Role/Relationship Status Dates Marsha Liu VSC, FABRIC INSPECTOR-C Primary Care Provider Activ e Start: September 27, 2024 End: September 27, 2024 Melissa Pickering FABRIC INSPECTOR, FABRIC INSPECTOR-C Attending Provider Active Start: September 27, 2024 End: September 27, 2024 Melissa Pickering FABRIC INSPECTOR, FABRIC INSPECTOR-C Referring Provider Active Start: September 27, 2024 End: September 27, 2024 Team Status: Inactive Member Role/Relationship Status Dates Marsha Mendez VSC, FABRIC INSPECTOR-C Primary Care Provider Activ e Start: October 06, 2024 End: October 06, 2024 Marsha Mendez VSC, FABRIC INSPECTOR-C Referring Provider Active Start: October 06, 2024 End: October 06, 2024 Melissa Pickering FABRIC INSPECTOR, FABRIC INSPECTOR-C Attending Provider Active Start: October 06, 2024 End: October 06, 2024 Team Status: Inactive Member Role/Relationship Status Dates Marsha Liu VSC, FABRIC INSPECTOR-C Primary Care Provider Activ e Start: October 06, 2024 End: October 06, 2024 Melissa Pickering FABRIC INSPECTOR, FABRIC INSPECTOR-C Attending Provider Active Start: October 06, 2024 End: October 06, 2024 Melissa Pickering FABRIC INSPECTOR, FABRIC INSPECTOR-C Referring Provider Active Start: October 06, 2024 End: October 06, 2024 Team Status: Inactive Member Role/Relationship Status Dates Marsha Liu VSC, FABRIC INSPECTOR-C Primary Care Provider Activ e Start: July 11, 2024 End: July 11, 2024 Dr. Blanco Ayala MD Attending Provider Active Start: July 11, 2024 End: July 11, 2024 Dr. Blanco Ayala MD Referring Provider Active Start: July 11, 2024 End: July 11, 2024 Team Status: Active Member Role/Relationship Status Dates Marsha Liu SCOTTC, FABRIC INSPECTOR-C Primary Care Provider Activ e Start: July 11, 2024 Dr. Blanco Ayala MD Attending Provider Active Start: July 11, 2024 Dr. Blanco Ayala MD Referring Provider Active Start: July 11, 2024 Dr. Blanco Ayala MD Other Provider Active Sta rt: July 11, 2024 Team Status: Inactive Member Role/Relationship Status Dates Marsha Liu VSC, FABRIC INSPECTOR-C Primary Care Provider Activ e Start: July 19, 2024 End: July 19, 2024 Marsha Mendez VSC, FABRIC INSPECTOR-C Attending Provider Active Start: July 19, 2024 End: July 19, 2024 Team Status: Inactive Member Role/Relationship Status Dates Marsha Mendez VSC, FABRIC INSPECTOR-C Primary Care Provider Activ e Start: July 20, 2024 End: July 20, 2024 Marsha Liu VSC, FABRIC INSPECTOR-C Referring Provider Active Start: July 20, 2024 End: July 20, 2024 Melissa Pickering FABRIC INSPECTOR, FABRIC INSPECTOR-C Attending Provider Active Start: July 20, 2024 End: July 20, 2024 Team Status: Inactive Member Role/Relationship Status Dates Marsha Mendez VSC, FABRIC INSPECTOR-C Primary Care Provider Activ e Start: July 26, 2024 End: July 26, 2024 Marshadaniel Mendez VSC, FABRIC INSPECTOR-C Referring Provider Active Start: July 26, 2024 End: July 26, 2024 Tamia Wooten FABRIC INSPECTOR, FABRIC INSPECTOR-C Attending Provider Active Start: July 26, 2024 End: July 26, 2024 Team Status: Inactive Member Role/Relationship Status Dates Marsha Liu VSC, FABRIC INSPECTOR-C Primary Care Provider Activ e Start: August 05, 2024 End: August 05, 2024 Melissa Pickering FABRIC INSPECTOR, FABRIC INSPECTOR-C Attending Provider Active Start: August 05, 2024 End: August 05, 2024 Melissa Pickering FABRIC INSPECTOR, FABRIC INSPECTOR-C Referring Provider Active Start: August 05, 2024 End: August 05, 2024 Team Status: Inactive Member Role/Relationship Status Dates Marsha Liu VSC, FABRIC INSPECTOR-C Primary Care Provider Activ e Start: September 27, 2024 End: September 27, 2024 Melissa Pickering FABRIC INSPECTOR, FABRIC INSPECTOR-C Attending Provider Active Start: September 27, 2024 End: September 27, 2024 Melissa Pickering FABRIC INSPECTOR, FABRIC INSPECTOR-C Referring Provider Active Start: September 27, 2024 End: September 27, 2024 Team Status: Inactive Member Role/Relationship Status Dates Marsha Mendez VSC, FABRIC INSPECTOR-C Primary Care Provider Activ e Start: October 06, 2024 End: October 06, 2024 Marsha Mendez VSC, FABRIC INSPECTOR-C Referring Provider Active Start: October 06, 2024 End: October 06, 2024 Melissa Pickering FABRIC INSPECTOR, FABRIC INSPECTOR-C Attending Provider Active Start: October 06, 2024 End: October 06, 2024 Team Status: Inactive Member Role/Relationship Status Dates Marsha Liu VSC, FABRIC INSPECTOR-C Primary Care Provider Activ e Start: October 06, 2024 End: October 06, 2024 Melissa Pickering FABRIC INSPECTOR, FABRIC INSPECTOR-C Attending Provider Active Start: October 06, 2024 End: October 06, 2024 Melissa Pickering FABRIC INSPECTOR, FABRIC INSPECTOR-C Referring Provider Active Start: October 06, 2024 End: October 06, 2024 Team Status: Active Member Role/Relationship Status Dates Marsha Liu VSC, FABRIC INSPECTOR-C Primary Care Provider Activ e Start: November 03, 2024 Melissa Pickering FABRIC INSPECTOR, FABRIC INSPECTOR-C Attending Provider Active Start: November 03, 2024 Melissa Pickering FABRIC INSPECTOR, FABRIC INSPECTOR-C Referring Provider Active Start: November 03, 2024 Team Status: Active Member Role/Relationship Status Dates Marsha Mendez VSC, FABRIC INSPECTOR-C Primary Care Provider Activ e Start: November [...] section and content) DATE CREATED AUTHOR 10/30/2024 [facility] FOR RECORDS PERTAINING TO PATIENTS WHO ARE [...] BE BASED ON THE PRIMARY CLINICAL RECORDS. [employer] [facility] provides no warranty or guarantee of the accuracy or completeness of information in this document.
[2024-11-03 21:35] LABS: Partial Thromboplast Time 71.3 Seconds (24.1-36.2)
[2024-11-03] MEDS: buPROPion (SR) 150 MG Tablet.SA PO (21:48)
[2024-11-04] VITALS (9 sets, daily range): BP systolic 106–126; BP diastolic 58–76; PULSE 58–68; RESP 16–20; TEMP 36.1–36.8; O2SAT 84–95
[2024-11-04 02:52] LABS: Hematocrit 34.4 % (37-47); Hemoglobin 11.4 g/dL (12.0-15.0); Immature Granulocytes Count 0.040 X10^3/uL (0.0-0.0); Mean Corp Hgb Conc 33.1 g/dL (32-36); Mean Corpuscular Volume 85.8 fL (81-99); Mean Platelet Vol. 10.3 fl (6.2-12.0); NRBC Flagged by Analyzer 0 % (0-5); Platelet Count 314 K/mm3 (150-450); RBC Distribution Width CV 13.5 % (11.6-14.6); RBC Distribution Width SD 42.6 fl (35.1-43.9); Red Blood Count 4.01 M/mm3 (4.2-5.4); White Blood Count 10.3 K/mm3 (4.4-11.0)
[2024-11-04 03:23] LABS: Partial Thromboplast Time 75.0 Seconds (24.1-36.2)
[2024-11-04 04:19] LABS: Anion Gap 13 (5-15); BUN 15 mg/dL (4-19); BUN/Creat Ratio 16.0 RATIO (10-20); Calcium,Total 9.0 mg/dL (7.6-11.0); Carbon Dioxide 20.6 mmol/L (21.0-32.0); Chloride 105 mmol/L (98-108); Estimated Creatinine Clearance 55.30 ml/min (50-250); Glucose 108 mg/dL (70-99); Potassium 3.8 mmol/L (3.3-5.1)
[2024-11-04 09:09] LABS: Partial Thromboplast Time 83.7 Seconds (24.1-36.2)
[2024-11-04] MEDS: APIXABAN 5 MG TABLET 10 MG PO ×2 (09:53→20:50)
[2024-11-04] MEDS: buPROPion (SR) 150 MG Tablet.SA PO ×2 (09:55→20:50)
--- NOTE | 2024-11-04 13:16 | PN.HOSP_ITS ---
Subjective Subjective Doing well, no issues overnight. She is on room air at rest and needs 2 L with ambulation Objective Data Objective Data Vital Signs: Vital Signs Temp Pulse Resp BP Pulse Ox O2 Del Method O2 Flow Rate 97.8 F 68 20 H 107/65 92 Room Air 2 11/04/24 09:14 11/04/24 10:00 11/04/24 10:00 11/04/24 09:14 11/04/24 10:00 11/04/24 10:00 11/04/24 03:13 Oxygen Flow Rate (L/min) 2 Oxygen Delivery Method Room Air Weight: 147 lb 11.355 oz Body Mass Index (BMI) 26.2 Intake & Output: Intake and Output for Last 24 Hours 11/03/24 11/04/24 11/05/24 03:59 03:59 03:59 Intake Total 485.19 / 485.19 67.05 / 67.05 Balance 485.19 / 485.19 67.05 / 67.05 Lab / Micro Data 11/04/24 02:44 11/04/24 02:44 Labs: Laboratory Results - last 24 hr 11/03/24 14:00: WBC 12.6 H, RBC 4.08 L, Hgb 11.6 L, Hct 35.2 L, MCV 86.3, MCH 28.4, MCHC 33.0, RDW Std Deviation 43.3, RDW Coeff of Millie 13.7, Plt Count 282, MPV 10.5, Immature Gran % (Auto) 0.400, Neut % (Auto) 70.2 H, Lymph % (Auto) 16.3 L, [place] % (Auto) 8.6, Eos % (Auto) 3.7, Baso % (Auto) 0.8, Absolute Neuts (auto) 8.8 H, Absolute Lymphs (auto) 2.05, Nucleated RBC % 0, PT 14.5, INR 1.1, APTT 26.4, Sodium 140, Potassium 4.6, Chloride 106, Carbon Dioxide 19.5 L, Anion Gap 14, BUN 15, Creatinine 0.92, Estim Creat Clear Calc 56.82, Est GFR (MDRD) Non-Af 69, BUN/Creatinine Ratio 16.4, Glucose 84, Lactic Acid < 1.0, Calcium 9.1, Troponin T High Sens 25 H, NT pro BNP II 412 11/03/24 17:10: Troponin T Hi Sens 2 Hr 26 H 11/03/24 18:57: Troponin T Hi Sens 4Hr 27 H 11/03/24 20:50: APTT 71.3 H 11/04/24 02:44: WBC 10.3, RBC 4.01 L, Hgb 11.4 L, Hct 34.4 L, MCV 85.8, MCH 28.4, MCHC 33.1, RDW Std Deviation 42.6, RDW Coeff of Millie 13.5, Plt Count 314, MPV 10.3, Immature Gran % (Auto) 0.400, Neut % (Auto) 56.6, Lymph % (Auto) 27.7, [place] % (Auto) 8.5, Eos % (Auto) 5.6 H, Baso % (Auto) 1.2 H, Absolute Neuts (auto) 5.8, Absolute Lymphs (auto) 2.86, Nucleated RBC % 0, APTT 75.0 H, Sodium 138, Potassium 3.8, Chloride 105, Carbon Dioxide 20.6 L, Anion Gap 13, BUN 15, Creatinine 0.92, Estim Creat Clear Calc 55.30, Est GFR (MDRD) Non-Af 69, BUN/Creatinine Ratio 16.0, Glucose 108 H, Calcium 9.0 11/04/24 08:43: APTT 83.7 H Radiography Diagnostic Testing: Radiology Impression Chest CTA 11/03/24 13:47 IMPRESSION: Bilateral pulmonary emboli with evidence of heart strain. Bilateral lower lobe pulmonary infarctions. Left lower lobe nodule is obscured due to infarction. Stable lymphadenopathy. Critical results communicated to Dr. Guerrero at 3 p.m.. Reading Location: [id number] Echocardiogram 11/03/24 17:07 Interpretation Summary Normal LV size. Normal left ventricular thickness. The estimated ejection fraction is 60 %. Normal diastolic function Normal RV size. With normal systolic function TAPSE is 1.8. Mildly dilated IVC but with normal respiratory variation Top normal right-sided pressure Ordering Physician: Celia Modi Referring Physician: Marsha Mendez Performed By: Georgina Hyatt RDCS Physical Exam Narrative General: Alert, Oriented x3, Cooperative, No apparent distress HEENT: Atraumatic, PERRLA, EOMI, Normocephalic Oral: Moist Mucosa Neck: Supple, No JVD Lungs: Diminished, Normal air movement, No rhonchi, No wheeze, No rales Cardiovascular: Regular rate, Regular Rhythm, Normal S1, Normal S2, No murmurs Abdomen: Soft, Non Tender, Non-Distended, No Hepato-splenomegaly Extremities: No edema, Capillary Refill Less than 3 Seconds Skin: No rashes, No breakdown Musculoskeletal: No Tenderness to Palpation of Joints or Extremities Neurological: No focal neurological deficits, Motor Exam 5/5 strength throughout, Sensory exam intact to light touch and pain Psych/Mental Status: Normal Affect, Appropriate Assessment & Plan Assessment/Plan (1) Bilateral pulmonary embolism: PLAN: Plan 1. Hypoxia secondary to bilateral pulmonary emboli - May have underlying malignancy given this lung mass and now pulmonary embolism - Patient required 2 L nasal cannula, CT did show bilateral pulmonary emboli with possible lower lobe infarcts and right heart strain but aside from needing 2 L patient vitally stable ?Will transition to p.o. Eliquis -Patient reports her episodes of hemoptysis are improving now that she is on heparin, monitor closely -Incentive spirometer - Echo with no right heart strain, EF is 60% 2. Depression/anxiety -Continue home medications ? Stable 3. GERD ? Stable -Continue PPI 4. History of asthma ? Stable - As needed albuterol DVT: Eliquis Charges/Coding Visit Charges Inpatient E&M: 91908 Subs Hosp L2
--- NOTE | 2024-11-04 14:40 | CASEMGMT ---
KATH DELUNA Assessment Face to Face with patient for initial transition planning/care coordination assessment. KATH DELUNA introduced self and role at [facility], pt voices understanding. Pt is A&Ox4 and is resting comfortably in bed and is calm. Pt's sister and brother at bedside. Care providers, pharmacy, and demographics verified. Admitting dx: BL Pulmonary Embolus, Hypoxia, Hemoptysis LACE Strata: 1 PCP: Marsha Mendez ([facility]) Specialists: [facility] Preferred Pharmacy: [facility]. Noted that the pt is on Eliquis for DVT. Savings card provided to the pt at this time and educated that this can only be used once per life Insurance: [employer] [facility] Prescription Benefit: Yes. LNOK: Michelle (Sister), [employer]s (Brother) Living Arrangements: Pt lives alone in a single story home with 3 steps to enter ADLs/IADLs: Indep. 6-Click score is 23. No PT ordered Transportation: Self, family, friends. Denies concerns DME: BiPAP supplied through [employer]. Pt may qualify for home oxygen use. A verbal list of local in-network DME companies were provided to the pt at this time. Pt prefers [employer]. Denies further DME uses or needs ? HHC/SNF: denies hx or needs Pt?s goal: Home Plan: Home, follow for oxygen needs. Pt states that she has family all around her and that she has plenty of support at home if she needs it. Pt denies the need for HH or OP Tx. Pt states that she feels safe with this plan and denies further questions or concerns at this time. Report given to NURSE ADVOCATE CM. John Nicole RN, CM
[2024-11-05 03:45] VITALS: BP 140/72; PULSE 65; RESP 18; TEMP 36.8; O2SAT 90; O2SAT 95
[2024-11-05 08:29] VITALS: BP 140/72; PULSE 62; RESP 18; TEMP 36.6; O2SAT 93
[2024-11-05] MEDS: buPROPion (SR) 150 MG Tablet.SA PO (08:46)
[2024-11-05] MEDS: APIXABAN 5 MG TABLET 10 MG PO (08:46)
[2024-11-05 08:50] VITALS: O2SAT 88; O2SAT 92; O2SAT 93
--- NOTE | 2024-11-05 09:04 | NURSING ---
[employer] notified of need for home oxygen set up.
[2024-11-05 09:41] VITALS: O2SAT 93
--- NOTE | 2024-11-05 09:59 | NURSING ---
Faxed prescription to [facility] [place].
--- NOTE | 2024-11-05 11:09 | DCINST_ITS ---
Discharge Instructions DC O2, CPAP, BIPAP needs Home O2 Discharge instructions: No Dressing / Incision Discharge Activity: Return to Normal Activity Dressing / Incision Call your doctor if you observe: Fever of 101 or Higher, Shortness of breath, Dizziness, Fainting spells, Swelling in the ankles, Chest pain and Increased palpitations (irregular heartbeat) Follow Up Care Test Results: Test results from this visit will be discussed in further detail at your follow- up appointment, if applicable. Discharge Plan Admission Admit Date/Time: 11/03/24 16:33 Attending Provider: Gonzalez Newman Primary Care Provider: Marsha Mendez Consulting Providers: Celia Modi Instructions Patient Instructions: Pulmonary Embolism Dc, DVT/PE Discharge instruction sheet Additional Instructions / Restrictions: Continue with 2 L of oxygen with ambulation and room air at rest. I also recommend wearing 2 L at night when you sleep Discharge Orders/Prescriptions Prescriptions: New Eliquis DVT-PE Treat 30D Start 5 mg (74 tabs) tablets,dose pack See Rx Instructions .ROUTE .COMPLEX Qty: 74 0RF Rx Instructions: orally per package directions Continued bupropion HCl [Wellbutrin SR] 150 mg tablet sustained-release 12 hr 150 mg PO BID escitalopram oxalate [Lexapro] 10 mg tablet 10 mg PO DAILY Rx Instructions: total of 30mg albuterol sulfate 90 mcg/actuation HFA aerosol inhaler 2 puff inhalation Q6H PRN (Reason: shortness of breath or wheezing) cholecalciferol (vitamin D3) 125 mcg (5,000 unit) capsule 125 mcg PO QDAY Adult 50 Plus Probiotic 4 billion cell capsule 4,000 mmu cells PO QDAY Rx Instructions: administer with a meal pantoprazole [Protonix] 20 mg tablet,delayed release (DR/EC) 20 mg PO QDAY escitalopram oxalate [Lexapro] 20 mg tablet 20 mg PO QDAY rosuvastatin 20 mg tablet 20 mg PO DAILY multivitamin [Daily Multi-Vitamin] Tablet 1 tab PO DAILY (DME) Oral appliance See Rx Instructions .ROUTE .MEDSUPPLY Qty: 1 0RF Rx Instructions: As directed Referrals / Follow Up: Maria Isabel Hargrove MD [Med Staff - Active Staff] - Within 3 Months Marsha Mendez, GROUND SU[employer] EQUIPMENT MECHANIC-C [Primary Care Provider] - Within 1 Week Disposition Disposition (needs filled in before D/C Order can be placed): Home, Self Care
--- NOTE | 2024-11-05 13:39 | PCM.DC.SUM ---
Providers Date of Admission: 11/03/24 Primary Care Physician: Marsha Mendez [facility] [place], [employer] DIRECTOR-C Reason For Visit: BILATERAL PULMONARY EMBOLUS, HYPOXIA, HEMOPTYSIS, Diagnosis Discharge Diagnosis (1) Bilateral pulmonary embolism: Status: Acute Code(s): I26.99 - Other pulmonary embolism without acute cor pulmonale Medications at Discharge Home Medications albuterol sulfate 90 mcg/actuation aerosol inhaler 2 puff inhalation Q6H PRN shortness of breath or wheezing 04/15/23 bupropion HCl 150 mg tablet,12 hr sustained-release (Wellbutrin SR) 150 mg PO BID depression 06/23/24 escitalopram oxalate 10 mg tablet (Lexapro) 10 mg PO DAILY depression 06/23/24 lactobacillus combination no.9 4 billion cell capsule (Adult 50 Plus Probiotic) 4,000 mmu cells PO QDAY supplement 06/23/24 multivitamin (Daily Multi-Vitamin tablet) 1 tab PO DAILY vitamin 07/06/24 cholecalciferol (vitamin D3) 125 mcg (5,000 unit) capsule 125 mcg PO QDAY supplement 07/20/24 pantoprazole 20 mg tablet,delayed release (Protonix) 20 mg PO QDAY gerd 07/26/24 Oral appliance #1 ea 08/16/24 escitalopram oxalate 20 mg tablet (Lexapro) 20 mg PO QDAY depression 10/06/24 rosuvastatin 20 mg tablet 20 mg PO DAILY hyperlipidemia 10/06/24 apixaban 5 mg (74 tabs) tablets in a dose pack (Eliquis DVT-PE Treat 30D Start) See Rx Instructions PO .COMPLEX #74 tabs 11/05/24 Hospital Course Operations None Procedures 2-D Echocardiogram Summary of Care Provided Minutes Spent on Discharge: 34 Hospital Course: Per HPI: MARY AGUILERA, is a 64-year-old female history of depression, anxiety, GERD, asthma, tobacco use presented to [facility] ED 11/03/2024 after a biopsy of her lung. She subsequently developed dyspnea and hypoxia, there was no postprocedure pneumothorax on x-ray so CTA obtained which showed bilateral pulmonary emboli with possible evidence of heart strain with bilateral lower lobe infarctions and stable lymphadenopathy. She was noted to be afebrile, heart rate in the 60s with blood pressure 128/69, respiratory rate 12 and pulse ox 96% on 2 L nasal cannula. CBC with white blood cell count of 12.6, hemoglobin 11.6 and platelet count 282. Lactic acid within normal limits and BMP only notable for a slightly low bicarb of 19.5 but anion gap within normal limits on her assay at 14. proBNP 412, troponin 25. Given the above hospitalist contacted for admission. Patient evaluated at bedside, she reports that she had a lung nodule found on her routine low-dose CT screening followed it with serial imaging due to it continuing to grow she was referred for the biopsy. She notes over the past 2 weeks she has had increased shortness of breath on exertion the point that at times she has to stop and has been somewhat achy all over, notes for the past week her right heel has been hurting as well but denies swelling in her lower extremities, had not really been coughing either. No fevers or chills. Notes that after the biopsy she did not have any increased shortness of breath but was noted to have low O2 and she did have the episodes of hemoptysis so she was brought to the ED. Reports that the hemoptysis is slowing down, does not have any shortness of breath and reports this is not changed throughout any of the events today. No pain in the center of her chest but does have some pain on deep inspiration at the site of biopsy on the left. Hospital Course: 1. Acute hypoxic respiratory insufficiency secondary to bilateral pulmonary embolism?64-year-old female who was being worked up for a pulmonary nodule presented to the hospital for increased shortness of breath and mild hemoptysis. CTA of her chest demonstrated bilateral pulmonary embolisms with possible pulmonary infarct. She was started on heparin drip and transition to p.o. Eliquis. She has been doing well and does not require any oxygen at rest but does require 2 L with ambulation and with sleep. I have reviewed the oxygen testing, and this patient qualifies for the home equipment and portability. The patient is mobile in the home and the community. She denies any chest pain, she did have an echocardiogram that did not demonstrate any right heart strain with an EF of 60%. I discussed with her the plan for discharge today and she expressed understanding of the risk and benefits of going home and would like to go home today. I do recommend outpatient follow-up with her PCP, I will also have her follow-up with hematology and she has an appointment next week with pulmonology. 2. Anxiety, depression, GERD, asthma, hyperlipidemia are all chronic medical conditions which complicate her care. Her home medications were continued where appropriate Physical Exam Narrative General: Alert, Oriented x3, Cooperative, No apparent distress HEENT: Atraumatic, PERRLA, EOMI, Normocephalic Oral: Moist Mucosa Neck: Supple, No JVD Lungs: Diminished, Normal air movement, No rhonchi, No wheeze, No rales Cardiovascular: Regular rate, Regular Rhythm, Normal S1, Normal S2, No murmurs Abdomen: Soft, Non Tender, Non-Distended, No Hepato-splenomegaly Extremities: No edema, Capillary Refill Less than 3 Seconds Skin: No rashes, No breakdown Musculoskeletal: No Tenderness to Palpation of Joints or Extremities Neurological: No focal neurological deficits, Motor Exam 5/5 strength throughout, Sensory exam intact to light touch and pain Psych/Mental Status: Normal Affect, Appropriate Weight / BMI Weight Weight: 147 lb 11.355 oz Body Mass Index (BMI) 26.2 ABG / Lab / Microbiology Data 11/04/24 02:44 11/04/24 02:44 D/C Instructions Call your doctor if you observe: Fever of 101 or Higher, Shortness of breath, Dizziness, Fainting spells, Swelling in the ankles, Chest pain and Increased palpitations (irregular heartbeat) DC O2, CPAP, BIPAP Needs Home O2 Discharge instructions: No Meaningful Use Info Meaningful Use Meaningful Use Diagnoses (Choose all that apply): None applicable Discharge Plan Admission Admit Date/Time: 11/03/24 16:33 Attending Provider: Gonzalez Newman Primary Care Provider: Marsha Mendez [facility] [place] Consulting Providers: Celia Modi Instructions Patient Instructions: DVT/PE Discharge instruction sheet, Pulmonary Embolism Dc Additional Instructions / Restrictions: Continue with 2 L of oxygen with ambulation and room air at rest. I also recommend wearing 2 L at night when you sleep Discharge Orders/Prescriptions Prescriptions: New Mahesh DVT-PE Treat 30D Start 5 mg (74 tabs) tablets,dose pack See Rx Instructions .ROUTE .COMPLEX Qty: 74 0RF Rx Instructions: orally per package directions Continued bupropion HCl [Wellbutrin SR] 150 mg tablet sustained-release 12 hr 150 mg PO BID escitalopram oxalate [Lexapro] 10 mg tablet 10 mg PO DAILY Rx Instructions: total of 30mg albuterol sulfate 90 mcg/actuation HFA aerosol inhaler 2 puff inhalation Q6H PRN (Reason: shortness of breath or wheezing) cholecalciferol (vitamin D3) 125 mcg (5,000 unit) capsule 125 mcg PO QDAY Adult 50 Plus Probiotic 4 billion cell capsule 4,000 mmu cells PO QDAY Rx Instructions: administer with a meal pantoprazole [Protonix] 20 mg tablet,delayed release (DR/EC) 20 mg PO QDAY escitalopram oxalate [Lexapro] 20 mg tablet 20 mg PO QDAY rosuvastatin 20 mg tablet 20 mg PO DAILY multivitamin [Daily Multi-Vitamin] Tablet 1 tab PO DAILY (DME) Oral appliance See Rx Instructions .ROUTE .MEDSUPPLY Qty: 1 0RF Rx Instructions: As directed Referrals / Follow Up: Maria Isabel Hargrove MD [Med Staff - Active Staff] - Within 3 Months Marsha Mendez, TOWER DIRECTOR-C [Primary Care Provider] - Within 1 Week Disposition Disposition (needs filled in before D/C Order can be placed): Home, Self Care Charges/Coding Visit Charges Inpatient E&M: 66340 Disch Hosp >30min
== END 2024-11-05 13:39 | disposition home or self-care (01) | DRG 176 ==
LOC: ED 14:57 → PCU 16:38
PROVIDERS: Admitting Provider Internal Medicine; Emergency Provider Emergency Medicine; PCP Nurse Practitioner Family; Referring Provider Emergency Medicine; Visit Provider Family Medicine
DX: I26.99 Other pulmonary embolism without acute cor pulmonale (principal); R04.2 Hemoptysis; C34.90 Malignant neoplasm of unspecified part of unspecified bronchus or lung; J45.909 Unspecified asthma, uncomplicated; F32.A Depression, unspecified; E78.00 Pure hypercholesterolemia, unspecified; F41.9 Anxiety disorder, unspecified; G47.33 Obstructive sleep apnea (adult) (pediatric); K21.9 Gastro-esophageal reflux disease without esophagitis; F17.210 Nicotine dependence, cigarettes, uncomplicated; R09.02 Hypoxemia
CPT/HCPCS: 36415; 71046; 71275; 77012; 80048; 83605; 83880; 84484; 85025; 85610; 85730; 88172; 88305; 88313; 93005; 93306; 94668; 99156; 99157; 99285; Q9967; A4216

== ENCOUNTER → 2024-11-03 | Outpatient (CLI) | payer MEDICARE, SELFPAY ==
[2024-11-03] VITALS (25 sets, daily range): BP systolic 95–137; BP diastolic 51–91; PULSE 61–76; RESP 11–29; TEMP 36.3; O2SAT 83–100; BMI 26.5
--- NOTE | 2024-11-03 07:57 | CT_ITS ---
EXAM: CT-guided lung biopsy. CLINICAL HISTORY: Left lower lobe pulmonary nodule. COMPARISON: Prior CT scan of the chest dated September 27, 2024. TECHNIQUE: The procedure as well as the benefits and possible complications including infection, bleeding and pneumothorax were explained to the patient in the patient's has been. Informed consent was obtained. The patient was in the left-sided up decubitus position. The overlying skin was prepped and draped in the usual sterile fashion. The patient received conscious sedation. Patient was given 2 mg of Versed and 25 mcg of fentanyl intravenously. Conscious sedation was started at 9:14 a.m. and terminated at 9:45. The patient was independently monitored by the department nurse. 4 20 gauge core biopsy were obtained. The patient tolerated the procedure well. Radiation dose: CTDI L volume: 18.99 DLP: 491.26 mGy FINDINGS: Successful CT-guided biopsy of the peripheral left lower lobe nodule. CT/Biopsy/Inj or Needle Placement IMPRESSION: Successful CT-guided biopsy of the peripheral left lower lobe nodule. Reading Location: [place] [id number]
[2024-11-03 08:12] LABS: Hematocrit 36.7 % (37-47); Hemoglobin 12.1 g/dL (12.0-15.0); Mean Corp Hgb Conc 33.0 g/dL (32-36); Mean Corpuscular Volume 86.8 fL (81-99); Mean Platelet Vol. 10.3 fl (6.2-12.0); Platelet Count 306 K/mm3 (150-450); RBC Distribution Width SD 42.7 fl (35.1-43.9); Red Blood Count 4.23 M/mm3 (4.2-5.4); White Blood Count 9.5 K/mm3 (4.4-11.0)
[2024-11-03 08:13] LABS: Immature Granulocytes Count 0.020 X10^3/uL (0.0-0.0); RBC Distribution Width CV 33.0 % (11.6-14.6)
[2024-11-03 08:59] LABS: Prothrombin Time (Protime)PT. 15.2 SECONDS (11.7-14.9)
[2024-11-03 09:00] LABS: Partial Thromboplast Time 26.6 Seconds (24.1-36.2)
[2024-11-03] MEDS: 0.9% Normal Saline (250mL Bag) 250 ML 15 ML IV (09:12)
[2024-11-03] MEDS: Midazolam 2 MG/2 ML Syringe IV (09:14)
--- NOTE | 2024-11-03 09:15 | RAD_ITS ---
EXAM: Chest x-ray with inspiration and expiration CLINICAL HISTORY: Postbiopsy COMPARISON: September 27, 2024 TECHNIQUE: Inspiratory and expiratory chest x-ray FINDINGS: Heart is mildly enlarged. Mild central congestion. Pulmonary nodule in the left lower lobe better shown on prior CT. There is some surrounding airspace disease/hematoma following recent biopsy. The visceral pleura is seen in the left apex that does not significantly change with inspiration or expiration. Review of biopsy CT confirms this represents a miniscule pneumothorax. RAD/Chest Insp/Exp 2 View IMPRESSION: Status post biopsy. Mild infiltration around the biopsy site is present and no t unexpected. Tiny apical pneumothorax on the left. Ordering Bobo GAITAN aware of the findings and impression at 10:31 AM Reading Location: [id number]
[2024-11-03] MEDS: fentaNYL 100 MCG/2 ML Ampul IV (09:17)
--- NOTE | 2024-11-03 09:20 | ASPIGT_PTH ---
PATIENT: MARY AGUILERA LOC: CT U#:[id number] AGE/SX: 64/F ROOM: RE11/03/[address]: GREGORY AquinoC : 1960 BED: DIS: 11/03/2024 SPEC #: [id number] RECD: 11/03/24 09:45 STATUS: ALLYSSA REJaden #: [id number] KAREY: 11/03/24 09:[address]: Melissa Pickering NP DEPT: SURGICAL PATHOLOGY RECD BY: Jude Toussaint ENTERED: 11/03/24 10:39 SP TYPE: ASP RAD OTHR DR: Marsha Mendez, [facility], BACKUP OPERATOR-C Tissues: A - Lung, NOS Procedures: FNA Specimen Adequacy Special Stain Group II Surgery Specimen Level IV Imprint (control) HEADER OPERATION: CT guided lung biopsy PRE-OP DIAGNOSIS: Left lower lobe nodule TISSUE SUBMITTED: A- Left lower lobe nodule MICROSCOPIC DIAGNOSIS A. Lung, left lower, core biopsy: - Alveolar parenchyma with portion of muscular vessel, negative for malignancy. COMMENT The specimen is evaluated at the time of biopsy by Dr. Hood. Immediate Evaluation = 1. Cells present. 2. Atypia. MICROSCOPIC DESCRIPTION Slides are reviewed. GROSS DESCRIPTION A. Received in formalin labeled the patient's name and date of are 4 flecks of tissue, <0.1 cm to 0.1 cm. Touch preparations are made. The specimen is entirely submitted in 2 cassettes. The entirety of the specimen may not survive processing. PA 11/03/2024 CPT:16605,63065
[2024-11-03] MEDS: Lidocaine 2% (20 ml mdv) 20 ML Vial INFILT (09:40)
[2024-11-03] MEDS: Ketorolac 30 MG/ML Syringe IV (11:11)
--- NOTE | 2024-11-03 11:45 | RAD_ITS ---
EXAM: Chest AP inspiration expiration views CLINICAL HISTORY: 2 hour post left lung biopsy. COMPARISON: Prior study done earlier in the day. TECHNIQUE: AP inspiration expiration views. FINDINGS: No definite left-sided pneumothorax is seen. Stable increased markings at the left lung base. RAD/Chest Insp/Exp 2 View IMPRESSION: No definite pneumothorax seen at this time. Reading Location: [place] [address]
== END | disposition home or self-care (01) ==
PROVIDERS: Radiology Diagnostic Radiology; PCP Nurse Practitioner Family; Referring Provider Nurse Practitioner Acute Care; Visit Provider Nurse Practitioner Acute Care
DX: R91.1 Solitary pulmonary nodule (principal)
CPT/HCPCS: 32408; 36415; 71046; 77012; 85025; 85610; 85730; 88172; 88305; 88313; 99156; 99157; A4216

== ENCOUNTER → 2024-12-20 | Outpatient (CLI) | payer MEDICARE, SELFPAY ==
--- NOTE | 2024-12-20 09:30 | RAD_ITS ---
PROCEDURE: CHEST PA AND LATERAL 12/20/2024 REASON FOR EXAM: UNSPECIFIED ACUTE LOWER RESPIRATORY INFECTION TECHNIQUE: Procedure Code: RADCXR Modality: DX Procedure: CHEST PA AND LATERAL COMPARISON: Chest x-ray of 11/03/2024. RAD/Chest PA and Lateral IMPRESSION: Lungs are hyperinflated with chronic lung changes likely present. No focal infiltrate is seen. No pleural effusion or pneumothorax is noted. The cardiomediastinal silhouette is remarkable for a somewhat tortuous aorta. No evidence of cardiomegaly. Mild thoracic spine degenerative changes are noted. Thoracolumbar dextroscolio sis is also seen. No acute osseous change is seen. Reading Location: [id number]
== END | disposition home or self-care (01) ==
LOC: RAD 09:07
PROVIDERS: PCP Nurse Practitioner Family; Referring Provider Nurse Practitioner Family; Visit Provider Nurse Practitioner Family
DX: J22 Unspecified acute lower respiratory infection (principal)
CPT/HCPCS: 71046

== ENCOUNTER → 2024-12-20 | Outpatient (CLI) | payer MEDICARE, SELFPAY ==
[2024-12-20 11:15] LABS: Hematocrit 37.8 % (37-47); Hemoglobin 12.0 g/dL (12.0-15.0); Immature Granulocytes Count 0.040 X10^3/uL (0.0-0.0); Mean Corp Hgb Conc 31.7 g/dL (32-36); Mean Corpuscular Volume 87.5 fL (81-99); Mean Platelet Vol. 10.4 fl (6.2-12.0); NRBC Flagged by Analyzer 0 % (0-5); Platelet Count 262 K/mm3 (150-450); RBC Distribution Width CV 13.9 % (11.6-14.6); RBC Distribution Width SD 44.8 fl (35.1-43.9); Red Blood Count 4.32 M/mm3 (4.2-5.4); White Blood Count 10.2 K/mm3 (4.4-11.0)
[2024-12-20 11:48] LABS: AST(SGOT) 37 U/L (<=31); Alanine Aminotransfer ALT/SGPT 32 U/L (<=34); Albumin, Serum 4.5 g/dL (3.4-4.8); Alkaline Phosphatase 82 U/L (35-104); Anion Gap 14 (5-15); BUN 19 mg/dL (4-19); BUN/Creat Ratio 22.4 RATIO (10-20); Calcium,Total 9.7 mg/dL (7.6-11.0); Carbon Dioxide 21.8 mmol/L (21.0-32.0); Chloride 106 mmol/L (98-108); Globulin 3.0 g/dL (2.2-4.2); Glucose 104 mg/dL (70-99); Potassium 4.2 mmol/L (3.3-5.1)
== END | disposition home or self-care (01) ==
LOC: VSLAB 08:47
PROVIDERS: PCP Nurse Practitioner Family; Visit Provider Nurse Practitioner Family
DX: J22 Unspecified acute lower respiratory infection (principal)
CPT/HCPCS: 36415; 80053; 85025

== ENCOUNTER → 2024-12-22 | Outpatient (CLI) | payer MEDICARE, SELFPAY ==
--- NOTE | 2024-12-22 14:18 | BD_ITS ---
PROCEDURE: DEXA BONE DENSITY STUDY 12/22/2024 REASON FOR EXAM: F, age 64 y/o . Postmenopausal screening. TECHNIQUE: Procedure Code: BDDBD Modality: DX Procedure: DEXA BONE DENSITY STUDY COMPARISON: None FINDINGS: BMD and T-SCORES Lumbar spine: 0.711 g/cm2, T-score -2.8 Levels: L1 through L4 Change from prior: . Left femoral neck: 0.588 g/cm2, T-score -2.6 Femoral neck comparison data not recommended for monitoring change. Prior T-score Left total hip: 0.693 g/cm2, T-score -2.0 Change from prior: . Right femoral neck: 0.554 g/cm2, T-score -2.7 Femoral neck comparison data not recommended for monitoring change. Prior T-score Right total hip: 0.686 g/cm2, T-score -2.1 Change from prior: . The World Health Organization has defined the following categories based on bone density: Normal bone density: T-score equal to or greater than -1.0 Osteopenia: T-score between -1.0 and -2.5 Osteoporosis: T-score equal to or less than -2.5 FRAX (or Comparable) Fracture Risk Assessment: 10 Year Probability of Fracture: Major Osteoporotic Fracture: 22% Hip Fracture: 5% (Note: FRAX is not to be reported in setting of normal range bone density, osteoporosis on DEXA, known history of osteoporosis, prior osteoporotic hip or vertebral fracture, or for any patient undergoing pharmacological treatment for bone loss.) The National Osteoporosis Foundation (NOF) recommends pharmacological treatment for patients with a FRAX 10-year risk of 3% or higher for a hip fracture, or 20% or higher for a major osteoporotic fracture, to prevent osteoporosis and reduce fracture risk. The patient does meet the pharmacological treatment recommendations for prevention of osteoporosis. BD/Dexa Bone Density Study IMPRESSION: OSTEOPOROSIS. Recommend follow-up as clinically warranted. Reading Location: [id number]
--- NOTE | 2024-12-22 14:18 | BI_ITS ---
EXAM: SCRN MAMM (CAD)W/BONITA BILAT DATE: 12/22/2024 CLINICAL HISTORY: F, Age 64 y/o , SCREENING TECHNIQUE: Procedure Code: [id number] Modality: MG Procedure: SCRN MAMM (CAD)W/BONITA BILAT COMPARISON: Prior exam(s) were compared. FINDINGS: TISSUE DENSITY: The breasts are heterogeneously dense, which may obscure small masses. Bilateral Breast Mammographic Findings: No suspicious masses, calcifications or other abnormalities are identified. BI/SCRN MAMM (CAD)W/BONITA BILAT IMPRESSION: No mammographic evidence of malignancy in either breast. OVERALL FINAL ASSESSMENT BI-RADS 1: NEGATIVE. RECOMMENDATION: Routine annual follow-up in 1 Year Additional Recommendation none A letter with findings and recommendations will be mailed to the patient. Reading Location: [id number]
== END | disposition home or self-care (01) ==
LOC: OPBD 14:16
PROVIDERS: PCP Nurse Practitioner Family; Referring Provider Nurse Practitioner Family; Visit Provider Nurse Practitioner Family
DX: Z12.31 Encounter for screening mammogram for malignant neoplasm of breast (principal); Z78.0 Asymptomatic menopausal state; Z13.820 Encounter for screening for osteoporosis
CPT/HCPCS: 77063; 77067; 77080

== ENCOUNTER → 2025-01-03 | Outpatient (CLI) | payer MEDICARE, SELFPAY ==
--- NOTE | 2025-01-03 11:00 | RAD_ITS ---
PROCEDURE: CHEST PA AND LATERAL 01/03/2025 REASON FOR EXAM: SOB TECHNIQUE: Procedure Code: RADCXR Modality: DX Procedure: CHEST PA AND LATERAL COMPARISON: Prior study dated November 03, 2024 FINDINGS: Hardware: None Heart: Mild cardiomegaly. Mediastinum: The mediastinal contour is unremarkable. Lungs: Hyperinflation. Vascular congestion and mild CHF superimposed on bibasilar scarring Bones: The bones are unremarkable. RAD/Chest PA and Lateral IMPRESSION: Mild cardiomegaly with vascular congestion and mild CHF. Reading Location: [place] [id number]
== END | disposition home or self-care (01) ==
LOC: RAD 10:46
PROVIDERS: PCP Nurse Practitioner Family; Referring Provider Nurse Practitioner Family; Visit Provider Nurse Practitioner Family
DX: R06.02 Shortness of breath (principal)
CPT/HCPCS: 71046

== ENCOUNTER 2025-01-04 08:09 | Inpatient (IN) | payer MEDICARE, SELFPAY ==
[2025-01-04] VITALS (12 sets, daily range): BP systolic 115–157; BP diastolic 66–91; PULSE 72–96; RESP 12–24; TEMP 36.4–37.2; O2SAT 86–99; BMI 26.5; BMI 25.5
--- NOTE | 2025-01-04 08:33 | EKG12_ITS ---
Test Reason : SOB Blood Pressure : */* mmHG Vent. Rate : 87 BPM Atrial Rate : 87 BPM P-R Int : 128 ms QRS Dur : 84 ms QT Int : 360 ms P-R-T Axes : 58 55 44 degrees QTcB Int : 433 ms Normal sinus rhythm Possible Left atrial enlargement Nonspecific ST abnormality Abnormal ECG Confirmed by ZAYDA GAITAN, BOB ([id number]), film editor ALEJANDRO SCHWAB ([id number]) on 01/05/2025 9:59:44 AM Referred By: Confirmed By: BOB PRIEST MD
--- NOTE | 2025-01-04 08:46 | ED.VIS.DYS ---
HPI History of Present Illness Chief Complaint: Shortness of Breath Detail of Chief Complaint: Shortness of breath for the past couple of days. Informant: patient Onset/Context/Timing Onset: Days Context: sudden Timing: Continuous and Waxes and wanes Quality: Positive for Dyspnea on exertion and Orthopnea; Negative for PND or Wheezing Current Severity: Mild Maximum Severity: Severe Worsened by: Exertion and Lying flat Relieved by: Nothing Associated Symptoms cough; Negative for rhinorrhea, post nasal drip, ear pain, fever, sore throat, subjective, chills, sweats, clear sputum, white sputum, yellow sputum or green sputum Chest Pain: Positive for Sharp Narrative Narrative: Patient is a 64-year-old woman. She has history of pulmonary embolus on Eliquis, GERD, obstructive sleep apnea, hyperlipidemia who was seen last evening at urgent care and told she had CHF on her x-ray. She was discharged to follow-up with her doctor. She reports temperature up to 99.5?100.5 ?F. She denies headache, rhinorrhea, congestion, postnasal drainage. She denies sore throat. She has an occasional cough that is nonproductive. She states the last 2 nights she has had to sleep with multiple pillows. She lies flat she was short of breath. She has no history of cardiac disease. She has no history of congestive heart failure. She denies swelling of her feet or legs. Patient does have some complaint of chest pain that is described as sharp. She presently has no chest pain. Nothing exacerbates or precipitates the chest pain. She denies black or maroon-colored stool. She denies blood with her stools. She had mild diarrhea last evening. PE Risk Factors: Positive for Prior DVT or PE; Negative for Cancer, OCP + Smoking + > 35, Recent immobilization, Recent surgery or Recent travel Prior similar symptoms: No Recent Illness/Hospitalization: Yes (Pulmonary embolus on Eliquis, reports compliance with medication) [facility] Medical History Wears glasses Arthritis Shortness of breath on exertion Leg cramps Change in bowel habit Generalized abdominal pain Heart murmur Dyspnea on exertion Post-menopausal High cholesterol Back pain Syncope Gastric reflux Smoker BiPAP (biphasic positive airway pressure) dependence Asthma History of echocardiogram History of stress test Cardiology follow-up encounter Hyperlipidemia Skin cancer Anxiety and depression Home Medications ?Medication ?Instructions ?Recorded ?Last Taken ?Type albuterol sulfate 90 mcg/actuation 2 puff inhalation Q6H PRN 04/15/23 Unknown History aerosol inhaler shortness of breath or wheezing bupropion HCl 150 mg tablet,12 hr 150 mg PO BID depression 06/23/24 Unknown History sustained-release (Wellbutrin SR) escitalopram oxalate 10 mg tablet 10 mg PO DAILY depression 06/23/24 Unknown History (Lexapro) lactobacillus combination no.9 4 4,000 mmu cells PO QDAY supplement 06/23/24 Unknown History billion cell capsule (Adult 50 Plus Probiotic) multivitamin (Daily Multi-Vitamin 1 tab PO DAILY vitamin 07/06/24 Unknown History tablet) cholecalciferol (vitamin D3) 125 125 mcg PO QDAY supplement 07/20/24 Unknown History mcg (5,000 unit) capsule pantoprazole 20 mg tablet,delayed 20 mg PO QDAY gerd 07/26/24 Unknown History release (Protonix) Oral appliance #1 ea 08/16/24 Unknown Rx escitalopram oxalate 20 mg tablet 20 mg PO QDAY depression 10/06/24 Unknown History (Lexapro) rosuvastatin 20 mg tablet 20 mg PO DAILY hyperlipidemia 10/06/24 Unknown History apixaban 5 mg (74 tabs) tablets in See Rx Instructions PO .COMPLEX 11/05/24 Unknown Rx a dose pack (Eliquis DVT-PE Treat #74 tabs 30D Start) Allergy/AdvReac Type Severity Reaction Status Date / Time Penicillins Allergy Intermediate Hives Verified 01/04/25 08:10 Family History Mother Breast cancer Hypertension Aunt Breast cancer Brother Hypertension Father Atrial fibrillation Surgical History History of esophagogastroduodenoscopy (EGD) Hx of colonoscopy Cyst Removal from breast History of LAVH Hx of appendectomy Social History Smoking Status: Former smoker quit date: 11/02/24 pack-years: 20 Tobacco: How many years used: 40 alcohol intake: never substance use type: does not use caffeine: Yes what type of physical activity do you participate in: walking frequency: 3-4 times per week seatbelt use: always do you feel safe at home: Yes additional social history: , Just moved back from the [facility] ROS ROS ED Constitutional Constitutional ED: Denies chills, fever(s), sweats or weight loss Eyes Eyes: Denies blurry vision, change in vision or diplopia ENT ENT ED: Denies ear pain, rhinorrhea or sore throat Cardiovascular Cardiovascular: Reports chest pain and orthopnea; Denies palpitations, paroxysmal nocturnal dyspnea or racing heartbeat Respiratory/Chest Respiratory/Chest: Reports cough, dyspnea, dyspnea on exertion and orthopnea; Denies paroxysmal nocturnal dyspnea or sputum Gastrointestinal Gastrointestinal: Denies abdominal pain, melena, nausea or vomiting Genitourinary Genitourinary ED: Denies dysuria, hematuria or urinary frequency Musculoskeletal Musculoskeletal: Denies arthralgias or myalgias Integumentary Denies Abrasions or rash Neurologic Neurologic: Denies headache(s), paresthesias or weakness Endocrine Endocrinology: Denies cold intolerance or heat intolerance Hematologic/Lymphatic Hematologic/Lymphatic: Denies easy bleeding or easy bruising EXAM Physical Exam Const Vital Signs: 01/04/25 08:10 01/04/25 08:12 01/04/25 08:20 Temperature 98.9 F 98 F Temperature Source Oral Oral Pulse Rate 94 85 Respiratory Rate 24 H 20 H Respiratory Effort Short of Breath Labored Respiratory Depth Normal Respiratory Pattern Normal Blood Pressure 125/91 H 157/79 H Blood Pressure Mean 102 105 Pulse Ox 90 95 Oxygen Delivery Method Room Air Room Air Room Air Oxygen Flow Rate (L/min) 01/04/25 08:20 01/04/25 09:09 01/04/25 09:09 Temperature 98 F Temperature Source Oral Pulse Rate 86 85 Respiratory Rate 20 H 20 H Respiratory Effort Respiratory Depth Respiratory Pattern Blood Pressure 153/86 H 153/86 H Blood Pressure Mean 108 108 Pulse Ox 86 96 96 Oxygen Delivery Method Room Air Nasal Cannula Nasal Cannula Oxygen Flow Rate (L/min) 2 01/04/25 10:00 01/04/25 10:00 01/04/25 11:00 Temperature 98 F 98 F Temperature Source Oral Oral Pulse Rate 84 84 81 Respiratory Rate 18 18 18 Respiratory Effort Respiratory Depth Respiratory Pattern Blood Pressure 115/68 115/68 139/75 H Blood Pressure Mean 83 83 96 Pulse Ox 96 96 96 Oxygen Delivery Method Nasal Cannula Nasal Cannula Oxygen Flow Rate (L/min) 01/04/25 11:00 Temperature Temperature Source Pulse Rate 81 Respiratory Rate 18 Respiratory Effort Respiratory Depth Respiratory Pattern Blood Pressure 139/75 H Blood Pressure Mean 96 Pulse Ox 96 Oxygen Delivery Method Oxygen Flow Rate (L/min) Positive well nourished and well developed Constitutional Narrative: Patient has conversational dyspnea. She was 86% on room air when I entered the room. There was mild use of accessory muscle she was tachypneic and breathing greater than 20 times a minute that was reported at 820. General Appearance ED: well developed and pallor HEENT Reports moist mucous membranes HEENT Narrative: Head is atraumatic and normocephalic. Ears normal. Nares patent. Posterior pharynx erythema or exudate. Uvula midline. No deviation of tongue with protrusion. Eyes PERRL and EOMs intact bilaterally General Eye ED: Negative for pale conjunctiva or scleral icterus Neck no lymphadenopathy, supple, no meningeal signs and no JVD Resp No normal respiratory effort and No clear to auscultation bilaterally Auscultation: rales bilateral lower; Negative for rhonchi, wheezes or diminished lung sounds Cardio regular rate, regular rhythm, S1 normal heart sound, S2 normal heart sound and no murmurs GI non-tender, non-distended and no masses GI Narrative: There is no palpable pulsatile mass. There is no abdominal bruit. Auscultation: normoactive bowel sounds Back/Spine no CVA tenderness and normal to inspection Extremity normal to inspection Extremity Narrative: PT pulse is palpable. General Extremety ED: Negative for edema or tenderness General Extremity: Negative for edema Neuro oriented x3, CN's II-XII intact bilaterally and no sensory deficits noted Sensorium / Orientation: alert Speech: speech normal Psych mental status grossly normal Skin no wounds and skin turgor normal General Skin Exam: pallor; Negative for jaundice Lesions: no lesions Rashes: no rashes MDM MDM MDM Narrative Medical decision making narrative: Differential diagnosis would be congestive heart failure, bilateral pneumonia, doubt pneumothorax or PE. Need to evaluate for cardiac ischemia. History & Record Review Additional record(s) reviewed:: Prior inpatient record (Patient was discharged in the hospital November 05 for bilateral pulmonary embolus. She is present on Eliquis. Dr. Newman discharge summary was reviewed.), Prior ED visit, Prior labs and Other (Patient had an echo performed 7 Pember 27 at 2023. At that time LV size was normal. Left ventricular systolic function was normal. Left EEG action fraction was 70%. There was mild tricuspid valve insufficiency and stage I diastolic dysfunction.) Lab Data Attestation: I reviewed the patient's lab results. Lab results narrative: Patient has mild anemia with a 1.3 g drop since December 20, 2024. Hemoglobin was 11.4 on November 04. White count is elevated 18.6 thousand with shift. Since patient reports Tmax of 100.5 with elevated white count and no evidence of cephalization/curly B-lines suspect patient has bilateral pneumonia and not congestive heart failure even though she reports orthopnea. Labs: Laboratory Results - last 24 hr 01/04/25 01/04/25 01/04/25 08:55 09:00 10:55 WBC 18.6 H RBC 3.81 L Hgb 10.7 L Hct 33.3 L MCV 87.4 MCH 28.1 MCHC 32.1 RDW Std Deviation 48.8 H RDW Coeff of Millie 15.5 H Plt Count 211 MPV 10.3 Immature Gran % (Auto) 0.900 Neut % (Auto) 85.1 H Lymph % (Auto) 5.5 L [place] % (Auto) 7.1 Eos % (Auto) 0.9 Baso % (Auto) 0.5 Absolute Neuts (auto) 15.8 H Absolute Lymphs (auto) 1.02 Nucleated RBC % 0 Sodium 141 Potassium 4.0 Chloride 106 Carbon Dioxide 23.7 Anion Gap 11 BUN 9 Creatinine 0.91 Estim Creat Clear Calc 56.31 Est GFR (MDRD) Non-Af 69 BUN/Creatinine Ratio 10.3 Glucose 126 H Lactic Acid 1.3 Calcium 9.5 Total Bilirubin 0.75 AST 23 ALT 11 Alkaline Phosphatase 85 Troponin T High Sens 45 H D Troponin T Hi Sens 2 Hr 43 H NT pro BNP II 2279 H Total Protein 7.1 Albumin 4.2 Globulin 2.9 Albumin/Globulin Ratio 1.4 First troponin is 45. Prior troponin was 24. This could be due to the fact that she was hypoxemic. Awaiting 2-hour troponin. 2-hour troponin is 43. Will contact hospitalist for admission. Radiography Chest X-Ray - ED: 2 View (Patient has no cephalization or curly B-lines. She has interstitial fluffiness/infiltrates bilaterally. Cardiac size is normal. Osseous structures reveal no acute abnormality.) Diagnostic Testing: Clinical Impression(s) from Imaging Studies Chest X-Ray 01/04/25 09:17 IMPRESSION: Interstitial edema. Cardiac enlargement. Lymphadenopathy likely unchanged. Correlate with recent prior CT of November 03, 2024. Reading Location: [facility] EKG Initial EKG: Attestation: I personally reviewed and interpreted this EKG as follows: Interpretation: Sinus Rhythm (Rate is 87. MA interval is 128 ms. Cures duration 84 ms. QT duration 260 ms. [place] is normal. There is evidence of nonseptic change as well as artifact. Left atrium might be enlarged. There is no obvious acute ischemic changes suggest [address] elevation NC.) Prior: Unchanged (From November 03, 2024) Management Discussion w/another healthcare provider: Hospitalist (Spoke with the hospitalist, Dr. Pablo Griffith. Patient to be admitted to PCU. He will see her on the floor.) Discharge Plan Dx/Rx/DC Orders Clinical Impression: New onset of congestive heart failure, Hypoxia, Elevated blood pressure reading without diagnosis of hypertension, Hyperlipidemia, Anticoagulant long-term use, GERD (gastroesophageal reflux disease), Smoking greater than 20 pack years Disposition Disposition: Acute Care Hospital [facility]
[2025-01-04 09:06] LABS: Hematocrit 33.3 % (37-47); Hemoglobin 10.7 g/dL (12.0-15.0); Immature Granulocytes Count 0.160 X10^3/uL (0.0-0.0); Mean Corp Hgb Conc 32.1 g/dL (32-36); Mean Corpuscular Volume 87.4 fL (81-99); Mean Platelet Vol. 10.3 fl (6.2-12.0); NRBC Flagged by Analyzer 0 % (0-5); Platelet Count 211 K/mm3 (150-450); RBC Distribution Width CV 15.5 % (11.6-14.6); RBC Distribution Width SD 48.8 fl (35.1-43.9); Red Blood Count 3.81 M/mm3 (4.2-5.4); White Blood Count 18.6 K/mm3 (4.4-11.0)
--- NOTE | 2025-01-04 09:17 | RAD_ITS ---
PROCEDURE: CHEST PA AND LATERAL 01/04/2025 REASON FOR EXAM: HYPOXIA, BILATERAL RALES, CONVERSATIONAL DYSPNEA TECHNIQUE: Procedure Code: RADCXR Modality: DX Procedure: CHEST PA AND LATERAL COMPARISON: January 03, 2025, November 03, 2024 FINDINGS: Hardware: EKG leads Heart: Enlarged Mediastinum: Likely some mediastinal lymphadenopathy is present. Lungs: Interstitial edema is seen. No consolidation. Bones: Very mild curvature thoracolumbar spine. RAD/Chest PA and Lateral IMPRESSION: Interstitial edema. Cardiac enlargement. Lymphadenopathy likely unchanged. Correlate with recent prior CT of November 03, 2024. Reading Location: [id number]
[2025-01-04 09:29] LABS: Troponin T High Sensitivity 45 ng/L (<=14)
[2025-01-04 09:34] LABS: AST(SGOT) 23 U/L (<=31); Alanine Aminotransfer ALT/SGPT 11 U/L (<=34); Albumin, Serum 4.2 g/dL (3.4-4.8); Alkaline Phosphatase 85 U/L (35-104); Anion Gap 11 (5-15); BUN 9 mg/dL (4-19); BUN/Creat Ratio 10.3 RATIO (10-20); Calcium,Total 9.5 mg/dL (7.6-11.0); Carbon Dioxide 23.7 mmol/L (21.0-32.0); Chloride 106 mmol/L (98-108); Estimated Creatinine Clearance 56.31 ml/min (50-250); Globulin 2.9 g/dL (2.2-4.2); Glucose 126 mg/dL (70-99); Potassium 4.0 mmol/L (3.3-5.1); Pro- Brain NATRIURETIC PEPTIDE 2279 pg/mL (<=900)
[2025-01-04] MEDS: Furosemide 20 MG/2 ML VIAL IV ×3 (10:27→21:47)
[2025-01-04 11:27] LABS: Troponin T High Sens 2 HR 43 ng/L (<=14)
--- NOTE | 2025-01-04 12:06 | ECHOLC_ITS ---
Reason For Study Reason For Study: CONGESTIVE HEART FAILURE Procedure This was a limited 2D transthoracic echocardiogram. Contrast injection was performed. Exam performed portable in patient room. Left Ventricle Normal LV size. Left ventricular systolic function is normal. The left ventricular ejection fraction is 65 %. No regional wall motion abnormalities noted. Right Ventricle Normal RV size. A moderator band is seen in the right ventricle. Normal systolic function. Atria Normal left atrium. Normal right atrium. Mitral Valve Bileaflet diffuse mitral valve thickening. Mild-Moderate (1-2+) eccentric mitral valve insufficiency. Tricuspid Valve Normal tricuspid valve. Mild-Moderate (1-2+) tricuspid valve insufficiency. Pulmonary artery systolic pressure is 50 mmHg. Aortic Valve Trisinus/trileaflet aortic valve. Pulmonic Valve Normal pulmonic valve. Great Vessels Normal aortic root. The pulmonary artery is normal size. Inferior vena cava collapse with respiration. Pericardium/Pleural No pericardial effusion. Medication Diluted definity 2.5ml given slow IV push to enhance endocardial definition. MMode/2D Measurements & Calculations LVIDd: 4.1 cm IVSd: 1.1 cm LAV(MOD- bp): 42.1 ml LVIDs: 2.2 cm LVPWd: 0.87 cm RVDd: 3.0 cm FS: 46.3 % LAV(MOD- bp) Indexed: 25.1 ml/m2 LAV(MOD- sp2): 45.0 ml LAV(MOD- sp4): 39.2 ml SV(MOD- sp4): 95.5 ml LVAd ap4: 34.7 cm2 LVAd ap2: 27.3 cm2 LVLd ap4: 7.9 cm LVLd ap2: 7.1 cm SI(MOD- sp4): 56.8 ml/m2 EDV(MOD-sp4): 124.0 ml EDV(MOD-sp2): 86.1 ml EDV(sp4-el): 128.9 ml EDV(sp2-el): 89.5 ml LVAs ap4: 14.1 cm2 LVAs ap2: 14.5 cm2 LVLs ap4: 6.0 cm LVLs ap2: 6.0 cm ESV(MOD-sp4): 28.5 ml ESV(MOD-sp2): 30.4 ml ESV(sp4-el): 27.9 ml ESV(sp2-el): 29.5 ml EF(MOD-sp4): 77.0 % EF(MOD-sp2): 64.7 % EF(sp4-el): 78.3 % SV(MOD-sp2): 55.7 ml SV(sp4-el): 100.9 ml Ao sinus diam: 2.9 cm SI(MOD-sp2): 33.1 ml/m2 LA dimension(2D): 3.6 cm LA A4 area: 15.9 cm2 RA A4 area: 7.6 cm2 Doppler Measurements & Calculations TR max pooja: 338.1 cm/sec TR max P.7 mmHg ECHO/Echo Limited w/Contrast Interpretation Summary Normal LV size. Left ventricular systolic function is normal. The left ventricular ejection fraction is 65 %. A moderator band is seen in the right ventricle, with an echogenic structure at tached to it suggestive of a vegetation Bileaflet diffuse mitral valve thickening which appears to be much worse at the leaflet tips compared to the previous echocardiogram. Pulmonary artery systolic pressure is 50 mmHg. Above suggestive of endocarditis Ordering Physician: Pablo Crump Performed By: Jessy Ortiz RDCS
--- NOTE | 2025-01-04 12:08 | CASEMGMT ---
Care Management Face to Face with patient for initial transition planning/care coordination assessment in the ED.? This junior underwriter introduced self and role at [facility]. Patient alert and oriented. Patient willing to participate in assessment and is able to answer all questions appropriately.? Care providers, pharmacy, and demographics verified. Admitting Diagnosis: Resp failure Other diagnosis history: ?H/O PE, GERD, sleep apnea, hyperlipidemia PCP: ?Andrea Specialists: ?[facility] Preferred Pharmacy: [facility] Insurance: [employer] Prescription Benefit: Yes Living Will/HPOA: None completed LNOK: siblings Living Arrangements: ?patient lives alone in a one story home.? Independent with ADLs and IADLs. Transportation: ?patient drives DME: BiPAP, home o2 through [employer].? Patient was supposed to be off, states it was unsuccessful and has put herself on 4 L HHC: none SNF/Rehab: ?none Community Resources: ?none Behavioral Health History: ?none Patient goals: Patient wishes to discharge home, denies need for home health care at this time. Patient denies any further needs or concerns at this time. Disposition Plan: admission to acute; RN CM/SW to follow for discharge planning needs that may arise. Marilu Preston, MAGNETIC PROSPECTOR, COMPETITIVE ATHLETE
[2025-01-04] MEDS: 0.9% Saline Lock 10 ML Syringe IV (14:02)
[2025-01-04 14:28] LABS: Troponin T High Sens 4 HR 42 ng/L (<=14)
[2025-01-04] MEDS: Potassium Chloride Oral Tablet 20 MEQ PO (18:30)
[2025-01-04] MEDS: 0.9% Normal Saline (250mL Bag) 250 ML 15 ML IV (18:30)
[2025-01-04] MEDS: Vancomycin HCl 1,750 MG in 0.9% Normal Saline (500mL Bag) 500 ML 250 MG IV (19:26)
--- NOTE | 2025-01-04 19:28 | PCM.HP.STD ---
HPI - General General Date of Admission: 01/04/25 Date of Service: 01/04/25 Chief Complaint: Shortness of breath HPI Narrative MARY AGUILERA, is a 64 F who presents to the emergency room at [facility] with complaint of shortness of breath. She went to an urgent care yesterday and the urgent care told her she had congestive heart failure and told her to follow-up with her family doctor or go to the ER. Patient's pulse ox in triage was 90% on room air, she was afebrile Workup in the emergency room included a CBC which showed an elevated white blood cell count at 18.6, hemoglobin was 10.7, and chemistry profile was unremarkable. Patient's troponin was elevated at 45, patient's beta natruretic peptide was elevated at 2279. Chest x-ray showed evidence of interstitial edema and cardiac enlargement, there was also lymphadenopathy in the mediastinal area. Patient was given IV Lasix, she will be admitted to PCU for new onset CHF etiology unclear, patient was treated for a pulmonary embolism with a pulmonary infarction in October of this year and has been on Eliquis since that time. Patient stated she also has been treated recently for what was felt to be pneumonia and placed on 2 different courses of antibiotics and she was also on corticosteroids up to 2 weeks ago. [facility] Medical History Wears glasses Arthritis Shortness of breath on exertion Leg cramps Change in bowel habit Generalized abdominal pain Heart murmur Dyspnea on exertion Post-menopausal High cholesterol Back pain Syncope Gastric reflux Smoker BiPAP (biphasic positive airway pressure) dependence Asthma History of echocardiogram History of stress test Cardiology follow-up encounter Hyperlipidemia Skin cancer Anxiety and depression Home Medications ?Medication ?Instructions ?Recorded ?Last Taken ?Type albuterol sulfate 90 mcg/actuation 2 puff inhalation Q6H PRN 04/15/23 Unknown History aerosol inhaler shortness of breath or wheezing bupropion HCl 150 mg tablet,12 hr 150 mg PO BID depression 06/23/24 Unknown History sustained-release (Wellbutrin SR) escitalopram oxalate 10 mg tablet 10 mg PO DAILY depression 06/23/24 Unknown History (Lexapro) lactobacillus combination no.9 4 4,000 mmu cells PO QDAY supplement 06/23/24 Unknown History billion cell capsule (Adult 50 Plus Probiotic) multivitamin (Daily Multi-Vitamin 1 tab PO DAILY vitamin 07/06/24 Unknown History tablet) cholecalciferol (vitamin D3) 125 125 mcg PO QDAY supplement 07/20/24 Unknown History mcg (5,000 unit) capsule pantoprazole 20 mg tablet,delayed 20 mg PO QDAY gerd 07/26/24 Unknown History release (Protonix) Oral appliance #1 ea 08/16/24 Unknown Rx escitalopram oxalate 20 mg tablet 20 mg PO QDAY depression 10/06/24 Unknown History (Lexapro) rosuvastatin 20 mg tablet 20 mg PO DAILY hyperlipidemia 10/06/24 Unknown History apixaban 5 mg (74 tabs) tablets in See Rx Instructions PO .COMPLEX 11/05/24 Unknown Rx a dose pack (Eliquis DVT-PE Treat #74 tabs 30D Start) Allergy/AdvReac Type Severity Reaction Status Date / Time Penicillins Allergy Intermediate Hives Verified 01/04/25 08:10 Family History Mother Breast cancer Hypertension Aunt Breast cancer Brother Hypertension Father Atrial fibrillation Surgical History History of esophagogastroduodenoscopy (EGD) Hx of colonoscopy Cyst Removal from breast History of LAVH Hx of appendectomy Social History (Updated 01/04/25 @ 12:50 by Taylor Barrera) Smoking Status: Former smoker quit date: 11/02/24 pack-years: 20 Tobacco: How many years used: 40 alcohol intake: never substance use type: does not use caffeine: Yes what type of physical activity do you participate in: walking frequency: 3-4 times per week seatbelt use: always do you feel safe at home: Yes additional social history: , Just moved back from the [facility] ROS Constitutional Constitutional: Reports fatigue and fever(s); Denies anorexia, change in weight, chills, night sweats or weakness Eyes Eyes: Denies blurry vision, change in vision, discharge from eye(s) or eye pain Cardiovascular Cardiovascular: Reports dyspnea on exertion; Denies chest pain, claudication, edema or palpitations Respiratory/Chest Respiratory/Chest: Reports dyspnea, shortness of breath at rest and shortness of breath with exertion; Denies cough or hemoptysis Gastrointestinal Gastrointestinal: Denies abdominal pain, constipation, diarrhea, hematemesis, hematochezia, melena, nausea or vomiting Genitourinary Genitourinary: Denies dysuria, hematuria, urinary frequency, urinary hesitancy, urinary incontinence or urinary urgency Musculoskeletal Musculoskeletal: Denies back pain, joint pain, joint stiffness, joint swelling, myalgias or neck pain Neurologic Neurologic: Denies abnormal gait, abnormal speech, dizziness, focal weakness, headache(s), loss of vision, numbness, other visual disturbances, paresthesias, syncope or tingling Psychiatric Psychiatric: Denies anxiety, cognitive impairment, depression, irritability, mood swings or suicidal ideation Endocrine Endocrinology: Denies change in body appearance, cold intolerance, excessive sweating, heat intolerance, polydipsia or polyuria Hematologic/Lymphatic Hematologic/Lymphatic: Denies none, anemia, easy bleeding, easy bruising or lymphadenopathy Allergic/Immunologic Allergic/Immunologic: Denies rhinitis, urticaria, eczemia or asthma Vital Signs Vital Signs Vital Signs: 01/04/25 08:10 01/04/25 08:12 01/04/25 08:20 Temperature 98.9 F 98 F Temperature Source Oral Oral Pulse Rate 94 85 Respiratory Rate 24 H 20 H Respiratory Effort Short of Breath Labored Respiratory Depth Normal Respiratory Pattern Normal Blood Pressure 125/91 H 157/79 H Blood Pressure Mean 102 105 Pulse Ox 90 95 Oxygen Delivery Method Room Air Room Air Room Air Oxygen Flow Rate (L/min) 01/04/25 08:20 01/04/25 09:09 01/04/25 09:09 Temperature 98 F Temperature Source Oral Pulse Rate 86 85 Respiratory Rate 20 H 20 H Respiratory Effort Respiratory Depth Respiratory Pattern Blood Pressure 153/86 H 153/86 H Blood Pressure Mean 108 108 Pulse Ox 86 96 96 Oxygen Delivery Method Room Air Nasal Cannula Nasal Cannula Oxygen Flow Rate (L/min) 2 01/04/25 10:00 01/04/25 10:00 01/04/25 11:00 Temperature 98 F 98 F Temperature Source Oral Oral Pulse Rate 84 84 81 Respiratory Rate 18 18 18 Respiratory Effort Respiratory Depth Respiratory Pattern Blood Pressure 115/68 115/68 139/75 H Blood Pressure Mean 83 83 96 Pulse Ox 96 96 96 Oxygen Delivery Method Nasal Cannula Nasal Cannula Oxygen Flow Rate (L/min) 01/04/25 11:00 01/04/25 12:00 01/04/25 12:00 Temperature 98 F 98 F Temperature Source Oral Oral Pulse Rate 81 85 85 Respiratory Rate 18 20 H 20 H Respiratory Effort Respiratory Depth Respiratory Pattern Blood Pressure 139/75 H 135/85 H 135/80 H Blood Pressure Mean 96 101 98 Pulse Ox 96 97 99 Oxygen Delivery Method Nasal Cannula Nasal Cannula Oxygen Flow Rate (L/min) 2 01/04/25 12:00 01/04/25 12:53 01/04/25 13:49 Temperature 98 F 98.1 F Temperature Source Oral Pulse Rate 85 83 96 Respiratory Rate 20 H 15 12 Respiratory Effort Respiratory Depth Respiratory Pattern Normal Blood Pressure 135/80 H 135/72 H Blood Pressure Mean 98 93 Pulse Ox 96 97 Oxygen Delivery Method Nasal Cannula Oxygen Flow Rate (L/min) 3 01/04/25 13:49 01/04/25 14:00 Temperature Temperature Source Pulse Rate Respiratory Rate Respiratory Effort Non-Labored Short of Breath Respiratory Depth Normal Respiratory Pattern Normal Blood Pressure Blood Pressure Mean Pulse Ox 93 Oxygen Delivery Method Nasal Cannula Nasal Cannula Oxygen Flow Rate (L/min) 2 2 Weight Weight: 65.5 kg Body Mass Index (BMI) 25.5 Physical Exam Const alert, oriented x3, no apparent distress and average body habitus General Appearance: cooperative, well kempt and well developed Orientation / Consciousness: awake, oriented to person, oriented to place and oriented to time HEENT normocephalic, head/scalp atraumatic, hearing grossly normal bilaterally and moist oral mucous membranes Eyes PERRL, EOMs intact bilaterally and conjunctivae normal Neck supple, no JVD, thyroid normal and no carotid bruits General: trachea midline Resp normal respiratory effort, no retractions and no use of accessory muscles Resp Narrative: Inspiratory rales were noted bilaterally over the lower half of both lung silva Auscultation: rales; Negative for rhonchi or wheezes Cardio regular rate, regular rhythm, S1 normal heart sound, S2 normal heart sound, no murmurs, no rub and no gallops GI normal to inspection, nondistended, normoactive bowel sounds, soft to palpation, non-tender and non-distended Extremity no clubbing, cyanosis or edema Skin no rashes or lesions noted General Skin Exam: no breakdown Neuro oriented x3, CN's II-XII intact bilaterally, moves all extremities, no focal motor deficits and no sensory deficits noted Sensorium / Orientation: awake and alert Speech: speech normal Psych affect normal Results Lab / Micro Data 01/06/25 06:22 01/06/25 06:22 Labs: Laboratory Results - last 24 hr 01/04/25 08:55: WBC 18.6 H, RBC 3.81 L, Hgb 10.7 L, Hct 33.3 L, MCV 87.4, MCH 28.1, MCHC 32.1, RDW Std Deviation 48.8 H, RDW Coeff of Millie 15.5 H, Plt Count 211, MPV 10.3, Immature Gran % (Auto) 0.900, Neut % (Auto) 85.1 H, Lymph % (Auto) 5.5 L, [place] % (Auto) 7.1, Eos % (Auto) 0.9, Baso % (Auto) 0.5, Absolute Neuts (auto) 15.8 H, Absolute Lymphs (auto) 1.02, Nucleated RBC % 0, Sodium 141, Potassium 4.0, Chloride 106, Carbon Dioxide 23.7, Anion Gap 11, BUN 9, Creatinine 0.91, Estim Creat Clear Calc 56.31, Est GFR (MDRD) Non-Af 69, BUN/Creatinine Ratio 10.3, Glucose 126 H, Calcium 9.5, Total Bilirubin 0.75, AST 23, ALT 11, Alkaline Phosphatase 85, Troponin T High Sens 45 H D, NT pro BNP II 2279 H, Total Protein 7.1, Albumin 4.2, Globulin 2.9, Albumin/Globulin Ratio 1.4 01/04/25 09:00: Lactic Acid 1.3 01/04/25 10:55: Troponin T Hi Sens 2 Hr 43 H 01/04/25 13:51: Troponin T Hi Sens 4Hr 42 H Imaging Radiology Impression Chest X-Ray 01/04/25 09:17 IMPRESSION: Interstitial edema. Cardiac enlargement. Lymphadenopathy likely unchanged. Correlate with recent prior CT of November 03, 2024. Reading Location: [id number] Echocardiogram 01/04/25 12:06 Interpretation Summary Normal LV size. Left ventricular systolic function is normal. The left ventricular ejection fraction is 65 %. A moderator band is seen in the right ventricle, with an echogenic structure attached to it suggestive of a vegetation Bileaflet diffuse mitral valve thickening which appears to be much worse at the leaflet tips compared to the previous echocardiogram. Pulmonary artery systolic pressure is 50 mmHg. Above suggestive of endocarditis Ordering Physician: Pablo Crump Performed By: Jessy Ortiz RDCS Assessment & Plan Assessment/Plan (1) New onset of congestive heart failure: PLAN: Plan 1. Congestive heart failure-new onset-patient will be admitted to PCU, placed on IV diuretics, echocardiogram will be obtained #2 mild troponin elevation-possibly due to demand ischemia-I do not believe the patient needs to be seen by cardiology at this time #3 hypoxia secondary to #1-patient's pulse ox will be monitored, supplemental oxygen will be adjusted as necessary #4 current use of anticoagulation secondary to recent pulmonary embolism-complicates care, management, recovery, and prognosis #5 chronic depression-patient is on Lexapro and Wellbutrin #6 hyperlipidemia-patient is on statin Total clinical time spent by myself addressing the patient's medical issues, reviewing all of her data, and collaborating with patient's care team: 75 minutes Charges/Coding Visit Charges Inpatient E&M: 25977 Init Hosp L3
--- NOTE | 2025-01-04 19:42 | PCM.RX.CS ---
Consult Antibiotic Management Pharmacy has been consulted to manage selected antibiotic: Vancomycin Type of Intervention Type of Consult: New Labs Labs: Sodium 141 mmol/L (133-145) 01/04/25 08:55 Potassium 4.0 mmol/L (3.3-5.1) 01/04/25 08:55 Chloride 106 mmol/L (98-108) 01/04/25 08:55 Carbon Dioxide 23.7 mmol/L (21.0-32.0) 01/04/25 08:55 Anion Gap 11 (5-15) 01/04/25 08:55 BUN 9 mg/dL (4-19) 01/04/25 08:55 Creatinine 0.91 mg/dL (0.70-1.20) 01/04/25 08:55 Est GFR (MDRD) Non-Af 69 (>60) 01/04/25 08:55 BUN/Creatinine Ratio 10.3 RATIO (10-20) 01/04/25 08:55 Glucose 126 mg/dL (70-99) H 01/04/25 08:55 Pharmacy Plan for Drug Dosing Pharmacy Plan for Drug Dosing: NEW START IV VANCOMYCIN Consulting Physician: Alisia Indication: pneumonia Goal Trough: 15-20 SrCr: 0.91mg/dL CrCl: 56.3 mL/min Comments: loading dose of 1750mg given 01/04 @ 1926 Vancomycin Dose: Will start 750mg Q12 and get a trough prior to 4th total dose per policy. Pending Level: 01/06/25 @ 0630 Pharmacy Service will continue to monitor and adjust dosing as required.
[2025-01-04] MEDS: buPROPion (SR) 150 MG Tablet.SA PO (21:46)
[2025-01-04] MEDS: APIXABAN 5 MG TABLET PO (21:47)
--- NOTE | 2025-01-04 22:36 | PCM.HOSP.N ---
Hospitalist Note Pt reports itchy palms of hands and head while vancomycin was running. Ordered famotidine 20mg PO BID, repeat dose of vanc in AM, if sx reoccur, consider STOPPING vanc and list as adverse reaction.
[2025-01-05 03:54] VITALS: BMI 25.4
[2025-01-05 04:13] VITALS: BP 123/68; PULSE 97; RESP 18; TEMP 36.7; O2SAT 99
[2025-01-05] MEDS: Furosemide 20 MG/2 ML VIAL IV ×3 (05:13→21:37)
[2025-01-05] MEDS: 0.9% Saline Lock 10 ML Syringe IV ×2 (05:16→14:16)
[2025-01-05 05:48] LABS: Hematocrit 32.8 % (37-47); Hemoglobin 10.5 g/dL (12.0-15.0); Immature Granulocytes Count 0.170 X10^3/uL (0.0-0.0); Mean Corp Hgb Conc 32.0 g/dL (32-36); Mean Corpuscular Volume 88.2 fL (81-99); Mean Platelet Vol. 10.9 fl (6.2-12.0); NRBC Flagged by Analyzer 0 % (0-5); Platelet Count 213 K/mm3 (150-450); RBC Distribution Width CV 15.3 % (11.6-14.6); RBC Distribution Width SD 48.8 fl (35.1-43.9); Red Blood Count 3.72 M/mm3 (4.2-5.4); White Blood Count 16.1 K/mm3 (4.4-11.0)
[2025-01-05] MEDS: Vancomycin HCl 750 MG in 0.9% Normal Saline (250mL Bag) 250 ML 250 MG IV (06:15)
[2025-01-05 06:49] LABS: Anion Gap 13 (5-15); BUN 12 mg/dL (4-19); BUN/Creat Ratio 10.6 RATIO (10-20); Calcium,Total 9.5 mg/dL (7.6-11.0); Carbon Dioxide 24.0 mmol/L (21.0-32.0); Chloride 103 mmol/L (98-108); Estimated Creatinine Clearance 45.65 ml/min (50-250); Glucose 123 mg/dL (70-99); Potassium 4.1 mmol/L (3.3-5.1)
[2025-01-05 07:08] VITALS: PULSE 94; RESP 16; O2SAT 97
--- NOTE | 2025-01-05 07:36 | EKG12_ITS ---
Test Reason : CHEST DISCOMFORT Blood Pressure : */* mmHG Vent. Rate : 88 BPM Atrial Rate : 88 BPM P-R Int : 122 ms QRS Dur : 98 ms QT Int : 400 ms P-R-T Axes : 31 39 109 degrees QTcB Int : 484 ms Normal sinus rhythm with sinus arrhythmia Possible Left atrial enlargement ST & T wave abnormality, consider inferolateral ischemia Abnormal ECG When compared with ECG of 04-Jan-2025 08:18, MANUAL COMPARISON REQUIRED DATA IS UNCONFIRMED Confirmed by ZAYDA GAITAN, BOB ([id number]), film and video editor ALEJANDRO SCHWAB ([id number]) on 01/05/2025 10:08:28 AM Referred By: Confirmed By: BOB PRIEST MD
--- NOTE | 2025-01-05 07:41 | PCM.RX.CS ---
Consult Antibiotic Management Pharmacy has been consulted to manage selected antibiotic: Vancomycin Type of Intervention Type of Consult: Follow-up Suspected Infection Suspected Infection: Pneumonia Labs Labs: Sodium 139 mmol/L (133-145) 01/05/25 04:47 Potassium 4.1 mmol/L (3.3-5.1) 01/05/25 04:47 Chloride 103 mmol/L (98-108) 01/05/25 04:47 Carbon Dioxide 24.0 mmol/L (21.0-32.0) 01/05/25 04:47 Anion Gap 13 (5-15) 01/05/25 04:47 BUN 12 mg/dL (4-19) 01/05/25 04:47 Creatinine 1.10 mg/dL (0.70-1.20) 01/05/25 04:47 Est GFR (MDRD) Non-Af 55 (>60) L 01/05/25 04:47 BUN/Creatinine Ratio 10.6 RATIO (10-20) 01/05/25 04:47 Glucose 123 mg/dL (70-99) H 01/05/25 04:47 Goal Trough Goal Trough: 15-20 mcg/mL Pharmacy Plan for Drug Dosing Pharmacy Plan for Drug Dosing: DAILY ASSESSMENT Current Vancomycin Dose: 750mg Q12H Number of Doses Received: 750mg x1 Current Renal Function: sCr 1.10 Renal Function Trend: sCr increased since admission Lab/Micro: pending Any Change in Vanc Plan: Yes - adjust Vancomycin dosing regimen to 500mg Q12H Pending Level: 01/06/25 @ 06:30 Pharmacy Service will continue to monitor and adjust dosing as required. Follow-Up Labs Follow-Up Labs: Trough: Vancomycin (01/06/25 @ 06:30)
[2025-01-05 10:06] VITALS: BP 117/65; PULSE 102; RESP 18; TEMP 36.6; O2SAT 93
[2025-01-05] MEDS: Potassium Chloride Oral Tablet 20 MEQ PO ×2 (10:17→17:48)
[2025-01-05] MEDS: buPROPion (SR) 150 MG Tablet.SA PO ×2 (10:18→21:37)
[2025-01-05] MEDS: APIXABAN 5 MG TABLET PO ×2 (10:18→21:37)
--- NOTE | 2025-01-05 14:18 | PCM.CONS.GEN ---
Assessment & Plan Assessment/Plan (1) Endocarditis: PLAN: Bcx pending, will check serology for Bartonella and Q fever. Cont empiric vanc/ceftriaxone. Will follow, thank you, d/w Dr. Crump HPI Consult Data Date of Consult: 01/05/25 HPI Narrative Reason for Consultation: endocarditis HPI Narrative: MARY AGUILERA, is a 64 F who presented 01/04 to ED with 3 days sudden onset dyspnea, hypoxia, low grade temps at home, general malaise. Admitted over the summer with PE after lung biopsy, then developed pneumonia. No rash, no recent dental work. Has a dog at home, no exposure to cats, livestock, or other animals. No prior heart surgery. Came to ED, admitted, TTE done with concern for endocarditis. Bcx sent, started on vanc/ceftriaxone, feeling about the same today. Full ROS performed and neg except as noted above. [facility] Medical History Wears glasses Arthritis Shortness of breath on exertion Leg cramps Change in bowel habit Generalized abdominal pain Heart murmur Dyspnea on exertion Post-menopausal High cholesterol Back pain Syncope Gastric reflux Smoker BiPAP (biphasic positive airway pressure) dependence Asthma History of echocardiogram History of stress test Cardiology follow-up encounter Hyperlipidemia Skin cancer Anxiety and depression Home Medications ?Medication ?Instructions ?Recorded ?Last Taken ?Type albuterol sulfate 90 mcg/actuation 2 puff inhalation Q6H PRN 04/15/23 Unknown History aerosol inhaler shortness of breath or wheezing bupropion HCl 150 mg tablet,12 hr 150 mg PO BID depression 06/23/24 Unknown History sustained-release (Wellbutrin SR) escitalopram oxalate 10 mg tablet 10 mg PO DAILY depression 06/23/24 Unknown History (Lexapro) lactobacillus combination no.9 4 4,000 mmu cells PO QDAY supplement 06/23/24 Unknown History billion cell capsule (Adult 50 Plus Probiotic) multivitamin (Daily Multi-Vitamin 1 tab PO DAILY vitamin 07/06/24 Unknown History tablet) cholecalciferol (vitamin D3) 125 125 mcg PO QDAY supplement 07/20/24 Unknown History mcg (5,000 unit) capsule pantoprazole 20 mg tablet,delayed 20 mg PO QDAY gerd 07/26/24 Unknown History release (Protonix) Oral appliance #1 ea 08/16/24 Unknown Rx escitalopram oxalate 20 mg tablet 20 mg PO QDAY depression 10/06/24 Unknown History (Lexapro) rosuvastatin 20 mg tablet 20 mg PO DAILY hyperlipidemia 10/06/24 Unknown History apixaban 5 mg (74 tabs) tablets in See Rx Instructions PO .COMPLEX 11/05/24 Unknown Rx a dose pack (Eliquis DVT-PE Treat #74 tabs 30D Start) Allergy/AdvReac Type Severity Reaction Status Date / Time Penicillins Allergy Intermediate Hives Verified 01/04/25 08:10 Family History Mother Breast cancer Hypertension Aunt Breast cancer Brother Hypertension Father Atrial fibrillation Surgical History History of esophagogastroduodenoscopy (EGD) Hx of colonoscopy Cyst Removal from breast History of LAVH Hx of appendectomy Social History (Updated 01/04/25 @ 12:50 by Taylor Barrera) Smoking Status: Former smoker quit date: 11/02/24 pack-years: 20 Tobacco: How many years used: 40 alcohol intake: never substance use type: does not use caffeine: Yes what type of physical activity do you participate in: walking frequency: 3-4 times per week seatbelt use: always do you feel safe at home: Yes additional social history: , Just moved back from the [facility] Physical Exam Const alert, oriented x3 and no apparent distress General Appearance: cooperative HEENT normocephalic and head/scalp atraumatic Eyes PERRL and EOMs intact bilaterally Neck supple and No nodes Resp normal air movement and clear to auscultation bilaterally Cardio regular rate and regular rhythm Heart Sounds: murmur GI soft to palpation, non-tender and non-distended Extremity General Extremity: Negative for edema Skin no rashes or lesions noted Neuro CN's II-XII intact bilaterally Lab / Micro Data Attestation: I reviewed the patient's lab results. 01/05/25 04:47 01/05/25 04:47 Labs: Laboratory Results - last 24 hr 01/04/25 13:51: Troponin T Hi Sens 4Hr 42 H 01/05/25 04:47: WBC 16.1 H, RBC 3.72 L, Hgb 10.5 L, Hct 32.8 L, MCV 88.2, MCH 28.2, MCHC 32.0, RDW Std Deviation 48.8 H, RDW Coeff of Millie 15.3 H, Plt Count 213, MPV 10.9, Immature Gran % (Auto) 1.100 H, Neut % (Auto) 77.8 H, Lymph % (Auto) 9.7 L, [place] % (Auto) 8.9, Eos % (Auto) 2.0, Baso % (Auto) 0.5, Absolute Neuts (auto) 12.6 H, Absolute Lymphs (auto) 1.57, Nucleated RBC % 0, Sodium 139, Potassium 4.1, Chloride 103, Carbon Dioxide 24.0, Anion Gap 13, BUN 12, Creatinine 1.10, Estim Creat Clear Calc 45.65 L, Est GFR (MDRD) Non-Af 55 L, BUN/Creatinine Ratio 10.6, Glucose 123 H, Calcium 9.5 Imaging Radiology Impression Echocardiogram 01/04/25 12:06 Interpretation Summary Normal LV size. Left ventricular systolic function is normal. The left ventricular ejection fraction is 65 %. A moderator band is seen in the right ventricle, with an echogenic structure attached to it suggestive of a vegetation Bileaflet diffuse mitral valve thickening which appears to be much worse at the leaflet tips compared to the previous echocardiogram. Pulmonary artery systolic pressure is 50 mmHg. Above suggestive of endocarditis Ordering Physician: Pablo Crump Performed By: Jessy Ortiz RDCS
[2025-01-05] MEDS: FLU VACCINE HIGH DOSE 25-26(65YR UP) 180 MCG/0.5 ML SYRINGE IM (14:24)
[2025-01-05 16:02] VITALS: BP 114/66; PULSE 92; RESP 16; TEMP 36.6; O2SAT 94
[2025-01-05] MEDS: Ensure Plus High Protein 120 ML LIQUID PO (17:49)
--- NOTE | 2025-01-05 18:20 | PN.HOSP_ITS ---
Reason for Visit Chief Complaint: Shortness of breath Subjective Subjective Patient was seen and examined today, she is still requiring 2 L of oxygen. I talked briefly with infectious diseases and cardiology today cardiology maintain that the patient does not require a ALAN at this time. I relayed this to infectious diseases. I ordered a respiratory panel on the patient which is pending at this time, she continues on the IV Lasix, her output has not been significantly greater unfortunately from the IV Lasix, I have elected to leave her on her present dosage and check her tomorrow. Objective Data Objective Data Vital Signs: Vital Signs Temp Pulse Resp BP Pulse Ox O2 Del Method O2 Flow Rate 97.9 F 92 16 114/66 94 Nasal Cannula 2 01/05/25 16:02 01/05/25 16:02 01/05/25 16:02 01/05/25 16:02 01/05/25 16:02 01/05/25 16:13 01/05/25 16:13 Oxygen Flow Rate (L/min) 2 Oxygen Delivery Method Nasal Cannula Weight: 65.1 kg Body Mass Index (BMI) 25.4 Intake & Output: Intake and Output for Last 24 Hours 01/03/25 01/04/25 01/05/25 23:59 23:59 23:59 Intake Total 1259.0 / 1259.0 1055 / 1055 Output Total 1650 / 1650 Balance -391.0 / -391.0 1055 / 1055 Medical Nutrition Assessment Dietitian: Malnutrition Criteria Met Start: 01/05/25 16:28 Freq: Status: Active Protocol: Document 01/05/25 16:28 RICK (Rec: 01/05/25 16:28 [id number]) Nutrition Malnutrition Evidence of Yes Malnutrition Exists Malnutrition (severe Acute Illness/Injury ): Evidenced By Suboptimal Energy Intake (Severe),Weight Loss (Severe) Clinical Problem Acute Disease or Injury Related Malnutrition Etiology severe related to current illness Signs/Symptoms as evidenced by patient report of 4.2lbs (2.8%) weight loss in ~1 week and PO intakes meeting <50% of estimated energy needs for 1 week Status Active Problem Recommendation Dietitian Continue Cardiac diet to manage medical conditions. Recommendations/ Recommend same diet at discharge if test results show Changes CHF. Lab / Micro Data 01/07/25 05:21 01/07/25 05:21 Labs: Laboratory Results - last 24 hr 01/05/25 04:47: WBC 16.1 H, RBC 3.72 L, Hgb 10.5 L, Hct 32.8 L, MCV 88.2, MCH 28.2, MCHC 32.0, RDW Std Deviation 48.8 H, RDW Coeff of Millie 15.3 H, Plt Count 213, MPV 10.9, Immature Gran % (Auto) 1.100 H, Neut % (Auto) 77.8 H, Lymph % (Auto) 9.7 L, [place] % (Auto) 8.9, Eos % (Auto) 2.0, Baso % (Auto) 0.5, Absolute Neuts (auto) 12.6 H, Absolute Lymphs (auto) 1.57, Nucleated RBC % 0, Sodium 139, Potassium 4.1, Chloride 103, Carbon Dioxide 24.0, Anion Gap 13, BUN 12, Creatinine 1.10, Estim Creat Clear Calc 45.65 L, Est GFR (MDRD) Non-Af 55 L, BUN/Creatinine Ratio 10.6, Glucose 123 H, Calcium 9.5 Physical Exam Narrative lert, oriented x3, no apparent distress and average body habitus General Appearance: cooperative, well kempt and well developed Orientation / Consciousness: awake, oriented to person, oriented to place and oriented to time HEENT normocephalic, head/scalp atraumatic, hearing grossly normal bilaterally and moist oral mucous membranes Eyes PERRL, EOMs intact bilaterally and conjunctivae normal Neck supple, no JVD, thyroid normal and no carotid bruits General: trachea midline Resp normal respiratory effort, no retractions and no use of accessory muscles Resp Narrative: Inspiratory rales were noted bilaterally over the lower half of both lung silva-these were slight Auscultation: rales; Negative for rhonchi or wheezes Cardio regular rate, regular rhythm, S1 normal heart sound, S2 normal heart sound, no murmurs, no rub and no gallops GI normal to inspection, nondistended, normoactive bowel sounds, soft to palpation, non-tender and non-distended Extremity no clubbing, cyanosis or edema Skin no rashes or lesions noted General Skin Exam: no breakdown Neuro oriented x3, CN's II-XII intact bilaterally, moves all extremities, no focal motor deficits and no sensory deficits noted Sensorium / Orientation: awake and alert Speech: speech normal Psych affect normal Assessment & Plan Assessment/Plan (1) Endocarditis: (2) New onset of congestive heart failure: PLAN: Plan 1. Congestive heart failure-new onset-patient remains on IV Lasix at this time, I have elected to increase her Lasix dosage and reevaluate her tomorrow #2 endocarditis-etiology unclear, patient's blood cultures are pending at this time, infectious diseases will see the patient and she is currently on vancomycin and Rocephin, it appears she will need a PICC line when the blood cultures are negative, she will need a protracted course of antibiotics as an outpatient #3 hypoxia secondary to #1-patient's pulse ox will be monitored, supplemental oxygen will be adjusted as necessary, patient is on low-flow nasal cannula oxygen at this time #4 current use of anticoagulation secondary to recent pulmonary embolism- complicates care, management, recovery, and prognosis #5 chronic depression-patient is on Lexapro and Wellbutrin #6 hyperlipidemia-patient is on statin Total clinical time spent by myself addressing the patient's medical issues, reviewing all of her data, and collaborating with patient's care team: 35 minutes Charges/Coding Visit Charges Inpatient E&M: 36947 Subs Hosp L2
[2025-01-05 18:50] VITALS: PULSE 105; RESP 16; O2SAT 94
[2025-01-05] MEDS: Vancomycin HCl 500 MG in 0.9% Normal Saline (100mL Bag) 100 ML 100 MG IV (18:50)
[2025-01-05 21:34] VITALS: BP 119/66; PULSE 95; RESP 18; TEMP 36; O2SAT 94
[2025-01-06] VITALS (7 sets, daily range): BP systolic 107–118; BP diastolic 66–77; PULSE 86–96; RESP 16–18; TEMP 35.8–36.7; O2SAT 91–99; BMI 25.9
[2025-01-06] MEDS: Furosemide 20 MG/2 ML VIAL IV ×2 (05:04→15:36)
[2025-01-06 06:32] LABS: Hematocrit 35.2 % (37-47); Hemoglobin 11.3 g/dL (12.0-15.0); Immature Granulocytes Count 0.100 X10^3/uL (0.0-0.0); Mean Corp Hgb Conc 32.1 g/dL (32-36); Mean Corpuscular Volume 86.3 fL (81-99); Mean Platelet Vol. 10.6 fl (6.2-12.0); NRBC Flagged by Analyzer 0 % (0-5); Platelet Count 228 K/mm3 (150-450); RBC Distribution Width CV 15.6 % (11.6-14.6); RBC Distribution Width SD 48.4 fl (35.1-43.9); Red Blood Count 4.08 M/mm3 (4.2-5.4); White Blood Count 13.9 K/mm3 (4.4-11.0)
[2025-01-06 06:55] LABS: Vancomycin, Trough Level 13.4 ug/mL (5.0-15.0)
[2025-01-06 07:09] LABS: Anion Gap 15 (5-15); BUN 20 mg/dL (4-19); BUN/Creat Ratio 19.9 RATIO (10-20); Calcium,Total 9.9 mg/dL (7.6-11.0); Carbon Dioxide 23.0 mmol/L (21.0-32.0); Chloride 103 mmol/L (98-108); Estimated Creatinine Clearance 51.67 ml/min (50-250); Glucose 124 mg/dL (70-99); Potassium 3.7 mmol/L (3.3-5.1)
--- NOTE | 2025-01-06 07:16 | PCM.RX.CS ---
Consult Antibiotic Management Pharmacy has been consulted to manage selected antibiotic: Vancomycin Type of Intervention Type of Consult: Follow-up Suspected Infection Suspected Infection: Pneumonia and Endocarditis Prior Doses of Antibiotics Prior Doses of Antibiotics Received/Current Regimen: current dose is vanc 500mg IV q12h Labs Labs: Sodium 141 mmol/L (133-145) 01/06/25 06:22 Potassium 3.7 mmol/L (3.3-5.1) 01/06/25 06:22 Chloride 103 mmol/L (98-108) 01/06/25 06:22 Carbon Dioxide 23.0 mmol/L (21.0-32.0) 01/06/25 06:22 Anion Gap 15 (5-15) 01/06/25 06:22 BUN 20 mg/dL (4-19) H 01/06/25 06:22 Creatinine 0.98 mg/dL (0.70-1.20) 01/06/25 06:22 Est GFR (MDRD) Non-Af 63 (>60) 01/06/25 06:22 BUN/Creatinine Ratio 19.9 RATIO (10-20) 01/06/25 06:22 Glucose 124 mg/dL (70-99) H 01/06/25 06:22 Vancomycin Trough 13.4 ug/mL (5.0-15.0) 01/06/25 06:22 Microbiology Microbiology: Microbiology 01/05/25 23:15 Mucosa - Nasopharyngeal Respiratory Panel (PCR) - Final Dosing Weight Weight used for dosin.3 kg Estimated Creatinine Clearance Estimated Creatinine Clearance: 52 ml/min Goal Trough Goal Trough: 15-20 mcg/mL Pharmacy Plan for Drug Dosing Pharmacy Plan for Drug Dosing: The vanc trough drawn at 06:22 (approx 11.5 hours after the previous dose) was 13.4mcg/ml. This is below goal so will increase dose slightly to 750mg IV q12h. Will check a trough level before the 4th dose tomorrow evening. Of note, the patient's SCr went back down to 0.98 today from 1.10 yesterday. Pharmacy Service will continue to monitor and adjust dosing as required. Follow-Up Labs Follow-Up Labs: Trough: Vancomycin Date/Time Labs Ordered Labs to be done on [date and time ordered]: 01/07/25 19:30
[2025-01-06] MEDS: Vancomycin Trough/Random Due 1 LAB MC (08:47)
[2025-01-06] MEDS: Ensure Plus High Protein 120 ML LIQUID PO ×2 (08:48→17:23)
[2025-01-06] MEDS: Potassium Chloride Oral Tablet 20 MEQ PO ×2 (08:49→17:23)
[2025-01-06] MEDS: Vancomycin HCl 750 MG in 0.9% Normal Saline (250mL Bag) 250 ML 250 MG IV ×2 (08:50→19:41)
[2025-01-06] MEDS: buPROPion (SR) 150 MG Tablet.SA PO ×2 (09:01→19:41)
[2025-01-06] MEDS: APIXABAN 5 MG TABLET PO ×2 (09:01→19:41)
--- NOTE | 2025-01-06 13:52 | PCM.PN.ID ---
Physical Exam Narrative Feeling better, less dyspnea, no fever, no n/v/d. Const alert and no apparent distress General Appearance: cooperative Resp normal air movement and clear to auscultation bilaterally Cardio regular rate and regular rhythm Heart Sounds: murmur GI soft to palpation, non-tender and non-distended Skin no rashes or lesions noted ID ID: Route of nutrition/ use of supplements: [] Nutritional Intake: [] IV Site: [] Lane Catheter: [] Assessment & Plan Assessment/Plan (1) Endocarditis: PLAN: Bcx neg so far, wbc improved, pending serology for Bartonella and Q fever. Cont empiric vanc/ceftriaxone. if cxs remain neg, plan on picc and 4-6 weeks iv abx. Will follow
[2025-01-06] MEDS: 0.9% Saline Lock 10 ML Syringe IV ×2 (15:34→19:41)
--- NOTE | 2025-01-06 19:19 | PN.HOSP_ITS ---
Reason for Visit Chief Complaint: Shortness of breath Subjective Subjective Patient was seen and examined today, she states she does not feel that she has a lot of urination after her Lasix is administered, I elected to increase her Lasix today. Patient is still on supplemental oxygen at a low flow rate. Patient's blood cultures are pending at this time, she was seen by infectious diseases today. Patient's white blood cell count today was 13.9. Objective Data Objective Data Vital Signs: Vital Signs Temp Pulse Resp BP Pulse Ox O2 Del Method O2 Flow Rate 98.0 F 92 17 107/66 94 Nasal Cannula 1 01/06/25 14:45 01/06/25 14:45 01/06/25 14:45 01/06/25 14:45 01/06/25 14:45 01/06/25 15:45 01/06/25 15:45 Oxygen Flow Rate (L/min) 1 Oxygen Delivery Method Nasal Cannula Weight: 66.3 kg Body Mass Index (BMI) 25.9 Intake & Output: Intake and Output for Last 24 Hours 01/04/25 01/05/25 01/06/25 23:59 23:59 23:59 Intake Total 1259.0 / 1259.0 1685 / 1685 1035 / 1035 Output Total 1650 / 1650 800 / 800 Balance -391.0 / -391.0 1685 / 1685 235 / 235 Medical Nutrition Assessment Dietitian: Malnutrition Criteria Met Start: 01/05/25 16:28 Freq: Status: Active Protocol: Document 01/05/25 16:28 (Rec: 01/05/25 16:28 [id number]) Nutrition Malnutrition Evidence of Yes Malnutrition Exists Malnutrition (severe Acute Illness/Injury ): Evidenced By Suboptimal Energy Intake (Severe),Weight Loss (Severe) Clinical Problem Acute Disease or Injury Related Malnutrition Etiology severe related to current illness Signs/Symptoms as evidenced by patient report of 4.2lbs (2.8%) weight loss in ~1 week and PO intakes meeting <50% of estimated energy needs for 1 week Status Active Problem Recommendation Dietitian Continue Cardiac diet to manage medical conditions. Recommendations/ Recommend same diet at discharge if test results show Changes CHF. Lab / Micro Data 01/07/25 05:21 01/07/25 05:21 Labs: Laboratory Results - last 24 hr 01/06/25 06:22: WBC 13.9 H, RBC 4.08 L, Hgb 11.3 L, Hct 35.2 L, MCV 86.3, MCH 27.7, MCHC 32.1, RDW Std Deviation 48.4 H, RDW Coeff of Millie 15.6 H, Plt Count 228, MPV 10.6, Immature Gran % (Auto) 0.700, Neut % (Auto) 75.3 H, Lymph % (Auto) 11.8 L, [place] % (Auto) 8.9, Eos % (Auto) 2.7, Baso % (Auto) 0.6, Absolute Neuts (auto) 10.4 H, Absolute Lymphs (auto) 1.64, Nucleated RBC % 0, Sodium 141, Potassium 3.7, Chloride 103, Carbon Dioxide 23.0, Anion Gap 15, BUN 20 H, Creatinine 0.98, Estim Creat Clear Calc 51.67, Est GFR (MDRD) Non-Af 63, BUN/Creatinine Ratio 19.9, Glucose 124 H, Calcium 9.9, Vancomycin Trough 13.4 Micro: Microbiology 01/05/25 23:15 Mucosa - Nasopharyngeal Respiratory Panel (PCR) - Final Physical Exam Const alert, oriented x3, no apparent distress and healthy appearing General Appearance: cooperative, well kempt and well developed Orientation / Consciousness: awake, oriented to person, oriented to place and oriented to time HEENT normocephalic and moist oral mucous membranes Eyes PERRL, EOMs intact bilaterally and conjunctivae normal Neck supple, no JVD, thyroid normal and no carotid bruits General: trachea midline Resp normal respiratory effort and clear to auscultation bilaterally Auscultation: Negative for rales, rhonchi or wheezes Cardio regular rate, regular rhythm, no murmurs, no rub and no gallops GI normal to inspection, nondistended, normoactive bowel sounds, soft to palpation, non-tender and non-distended Extremity no clubbing, cyanosis or edema Skin no rashes or lesions noted General Skin Exam: no breakdown Neuro oriented x3, CN's II-XII intact bilaterally, no focal motor deficits and no sensory deficits noted Sensorium / Orientation: awake and alert Speech: speech normal Psych affect normal Assessment & Plan Assessment/Plan (1) Endocarditis: (2) New onset of congestive heart failure: PLAN: Plan 1. Congestive heart failure-new onset-patient remains on IV Lasix at this time, I have elected to increase her Lasix dosage and reevaluate her tomorrow #2 mild troponin elevation-possibly due to demand ischemia-I do not believe the patient needs to be seen by cardiology at this time #3 hypoxia secondary to #1-patient's pulse ox will be monitored, supplemental oxygen will be adjusted as necessary, patient is on low-flow nasal cannula oxygen at this time #4 current use of anticoagulation secondary to recent pulmonary embolism- complicates care, management, recovery, and prognosis #5 chronic depression-patient is on Lexapro and Wellbutrin #6 hyperlipidemia-patient is on statin #7 endocarditis-etiology unclear, patient's blood cultures are pending at this time, infectious diseases saw the patient today and she is currently on vancomycin and Rocephin, it appears she will need a PICC line when the blood cultures are negative, she will need a protracted course of antibiotics as an outpatient Total clinical time spent by myself addressing the patient's medical issues, reviewing all of her data, and collaborating with patient's care team: 35 minutes Charges/Coding Visit Charges Inpatient E&M: 63623 Subs Hosp L2
[2025-01-07] VITALS (8 sets, daily range): BP systolic 109–129; BP diastolic 61–69; PULSE 89–98; RESP 14–18; TEMP 36.2–36.6; O2SAT 92–98; BMI 25.8
[2025-01-07] MEDS: 0.9% Saline Lock 10 ML Syringe IV ×2 (05:20→22:53)
[2025-01-07 06:27] LABS: Hematocrit 33.7 % (37-47); Hemoglobin 10.9 g/dL (12.0-15.0); Immature Granulocytes Count 0.100 X10^3/uL (0.0-0.0); Mean Corp Hgb Conc 32.3 g/dL (32-36); Mean Corpuscular Volume 86.9 fL (81-99); Mean Platelet Vol. 10.5 fl (6.2-12.0); NRBC Flagged by Analyzer 0 % (0-5); Platelet Count 202 K/mm3 (150-450); RBC Distribution Width CV 15.7 % (11.6-14.6); RBC Distribution Width SD 49.3 fl (35.1-43.9); Red Blood Count 3.88 M/mm3 (4.2-5.4); White Blood Count 13.0 K/mm3 (4.4-11.0)
[2025-01-07 06:49] LABS: Anion Gap 15 (5-15); BUN 24 mg/dL (4-19); BUN/Creat Ratio 23.6 RATIO (10-20); Calcium,Total 9.5 mg/dL (7.6-11.0); Carbon Dioxide 22.0 mmol/L (21.0-32.0); Chloride 105 mmol/L (98-108); Estimated Creatinine Clearance 49.13 ml/min (50-250); Glucose 123 mg/dL (70-99); Potassium 4.3 mmol/L (3.3-5.1)
[2025-01-07] MEDS: Vancomycin HCl 750 MG in 0.9% Normal Saline (250mL Bag) 250 ML 250 MG IV ×2 (07:44→21:03)
[2025-01-07] MEDS: Potassium Chloride Oral Tablet 20 MEQ PO ×2 (07:45→16:58)
[2025-01-07] MEDS: APIXABAN 5 MG TABLET PO ×2 (09:04→21:07)
[2025-01-07] MEDS: buPROPion (SR) 150 MG Tablet.SA PO ×2 (09:05→21:08)
--- NOTE | 2025-01-07 14:45 | CASEMGMT ---
KATH DELUNA into pt room, pt family present. Pt agreeable to discussing DC plans with pt present. Pt states she is aware of needing to go home with PICC and getting HHC services. KATH DELUNA provided verbal list of infusion companies for deliver antibiotics, Pt chose [facility] as provider of choice. Pt would like a list of HHC agencies in the area to determine preferences. KATH DELUNA provided pt with a list, KATH DELUNA to follow up on Thursday for top 3 choices.
--- NOTE | 2025-01-07 17:51 | PCM.PN.HOSP ---
Reason for Visit Chief Complaint: Shortness of breath Subjective Subjective Patient was seen and examined today, she was able to be weaned off oxygen today. White blood cell count today was 13,000, I talked briefly with infectious diseases and because the patient's blood cultures were negative after 48 hours a PICC line will be placed. Objective Data Objective Data Vital Signs: Vital Signs Temp Pulse Resp BP Pulse Ox O2 Del Method O2 Flow Rate 97.9 F 97 18 129/69 H 95 Room Air 2 01/07/25 16:00 01/07/25 16:00 01/07/25 16:00 01/07/25 16:00 01/07/25 16:00 01/07/25 16:00 01/07/25 08:58 Oxygen Flow Rate (L/min) 2 Oxygen Delivery Method Room Air Weight: 66.2 kg Body Mass Index (BMI) 25.8 Intake & Output: Intake and Output for Last 24 Hours 01/05/25 01/06/25 01/07/25 23:59 23:59 23:59 Intake Total 1685 / 1685 1300 / 1300 715 / 715 Output Total 800 / 2000 2800 / 2800 Balance 1685 / 1685 500 / -700 -2085 / -2085 Medical Nutrition Assessment Dietitian: Malnutrition Criteria Met Start: 01/05/25 16:28 Freq: Status: Active Protocol: Document 01/05/25 16:28 (Rec: 01/05/25 16:28 [id number]) Nutrition Malnutrition Evidence of Yes Malnutrition Exists Malnutrition (severe Acute Illness/Injury ): Evidenced By Suboptimal Energy Intake (Severe),Weight Loss (Severe) Clinical Problem Acute Disease or Injury Related Malnutrition Etiology severe related to current illness Signs/Symptoms as evidenced by patient report of 4.2lbs (2.8%) weight loss in ~1 week and PO intakes meeting <50% of estimated energy needs for 1 week Status Active Problem Recommendation Dietitian Continue Cardiac diet to manage medical conditions. Recommendations/ Recommend same diet at discharge if test results show Changes CHF. Lab / Micro Data 01/07/25 05:21 01/07/25 05:21 Labs: Laboratory Results - last 24 hr 01/07/25 05:21: WBC 13.0 H, RBC 3.88 L, Hgb 10.9 L, Hct 33.7 L, MCV 86.9, MCH 28.1, MCHC 32.3, RDW Std Deviation 49.3 H, RDW Coeff of Millie 15.7 H, Plt Count 202, MPV 10.5, Immature Gran % (Auto) 0.800, Neut % (Auto) 75.1 H, Lymph % (Auto) 10.7 L, [place] % (Auto) 9.5, Eos % (Auto) 3.4, Baso % (Auto) 0.5, Absolute Neuts (auto) 9.8 H, Absolute Lymphs (auto) 1.40, Nucleated RBC % 0, Sodium 141, Potassium 4.3, Chloride 105, Carbon Dioxide 22.0, Anion Gap 15, BUN 24 H, Creatinine 1.03, Estim Creat Clear Calc 49.13 L, Est GFR (MDRD) Non-Af 60, BUN/Creatinine Ratio 23.6 H, Glucose 123 H, Calcium 9.5 Micro: Microbiology 01/05/25 10:51 Blood Culture (Wb) - Anticubital Left Blood Culture - Preliminary No growth in 48 hours. 01/04/25 17:14 Blood Culture (Wb) - Anticubital Left Blood Culture - Preliminary No growth in 48 hours. 01/04/25 17:09 Blood Culture (Wb) - Left Wrist Blood Culture - Preliminary No growth in 48 hours. 01/05/25 23:15 Mucosa - Nasopharyngeal Respiratory Panel (PCR) - Final Physical Exam Const alert, oriented x3, no apparent distress, average body habitus and healthy appearing General Appearance: cooperative, well kempt and well developed Orientation / Consciousness: awake, oriented to person, oriented to place and oriented to time HEENT normocephalic and moist oral mucous membranes Eyes PERRL, EOMs intact bilaterally and conjunctivae normal Neck supple, no JVD, thyroid normal and no carotid bruits General: trachea midline Resp normal respiratory effort, no retractions, no use of accessory muscles and clear to auscultation bilaterally Auscultation: Negative for rales, rhonchi or wheezes Cardio regular rate, regular rhythm, S1 normal heart sound, S2 normal heart sound, no murmurs, no rub and no gallops GI normal to inspection, nondistended, normoactive bowel sounds, soft to palpation, non-tender and non-distended Extremity no clubbing, cyanosis or edema Skin no rashes or lesions noted General Skin Exam: no breakdown Neuro oriented x3, CN's II-XII intact bilaterally, no focal motor deficits and no sensory deficits noted Sensorium / Orientation: awake and alert Speech: speech normal Psych affect normal Assessment & Plan Assessment/Plan (1) Endocarditis: (2) New onset of congestive heart failure: PLAN: Plan 1. Congestive heart failure-new onset-patient was placed on oral Lasix at this time, I have elected to increase her Lasix dosage and reevaluate her tomorrow #2 endocarditis-etiology unclear, patient's blood cultures are pending at this time, infectious diseases will see the patient and she is currently on vancomycin and Rocephin, it appears she will need a PICC line when the blood cultures are negative, she will need a protracted course of antibiotics as an outpatient #3 hypoxia secondary to #1-patient's pulse ox will be monitored, supplemental oxygen will be adjusted as necessary, patient is on low-flow nasal cannula oxygen at this time #4 current use of anticoagulation secondary to recent pulmonary embolism-complicates care, management, recovery, and prognosis #5 chronic depression-patient is on Lexapro and Wellbutrin #6 hyperlipidemia-patient is on statin Total clinical time spent by myself addressing the patient's medical issues, reviewing all of her data, and collaborating with patient's care team: 35 minutes Charges/Coding Visit Charges Inpatient E&M: 80411 Subs Hosp L2
[2025-01-07] MEDS: Vancomycin Trough/Random Due 1 LAB MC (20:00)
[2025-01-07 20:38] LABS: Vancomycin, Trough Level 17.7 ug/mL (5.0-15.0)
--- NOTE | 2025-01-07 20:57 | PCM.RX.CS ---
Consult Antibiotic Management Pharmacy has been consulted to manage selected antibiotic: Vancomycin Type of Intervention Type of Consult: Follow-up Labs Labs: Sodium 141 mmol/L (133-145) 01/07/25 05:21 Potassium 4.3 mmol/L (3.3-5.1) 01/07/25 05:21 Chloride 105 mmol/L (98-108) 01/07/25 05:21 Carbon Dioxide 22.0 mmol/L (21.0-32.0) 01/07/25 05:21 Anion Gap 15 (5-15) 01/07/25 05:21 BUN 24 mg/dL (4-19) H 01/07/25 05:21 Creatinine 1.03 mg/dL (0.70-1.20) 01/07/25 05:21 Est GFR (MDRD) Non-Af 60 (>60) 01/07/25 05:21 BUN/Creatinine Ratio 23.6 RATIO (10-20) H 01/07/25 05:21 Glucose 123 mg/dL (70-99) H 01/07/25 05:21 Vancomycin Trough 17.7 ug/mL (5.0-15.0) H 01/07/25 19:40 Microbiology Microbiology: Microbiology 01/05/25 10:51 Blood Culture (Wb) - Anticubital Left Blood Culture - Preliminary No growth in 48 hours. 01/04/25 17:14 Blood Culture (Wb) - Anticubital Left Blood Culture - Preliminary No growth in 48 hours. 01/04/25 17:09 Blood Culture (Wb) - Left Wrist Blood Culture - Preliminary No growth in 48 hours. 01/05/25 23:15 Mucosa - Nasopharyngeal Respiratory Panel (PCR) - Final Goal Trough Goal Trough: 15-20 mcg/mL Pharmacy Plan for Drug Dosing Pharmacy Plan for Drug Dosing: Pharmacy Service will continue to monitor and adjust dosing as required. TROUGH 17.7 @ 11.5 HOURS. NO CHANGES, FOLLOW UP TROUGH IN 2 DAYS Follow-Up Labs Follow-Up Labs: Trough: Vancomycin Date/Time Labs Ordered Labs to be done on [date and time ordered]: 01/09 @ 1930
[2025-01-07] MEDS: Ketorolac 30 MG/ML Syringe IV (22:53)
[2025-01-08 02:54] VITALS: BMI 25.6
[2025-01-08 03:30] VITALS: BP 120/63; PULSE 74; RESP 18; TEMP 36.2; O2SAT 99
[2025-01-08 06:47] VITALS: PULSE 95; RESP 18; O2SAT 93
[2025-01-08 06:48] LABS: Anion Gap 14 (5-15); BUN 30 mg/dL (4-19); BUN/Creat Ratio 24.8 RATIO (10-20); Calcium,Total 9.4 mg/dL (7.6-11.0); Carbon Dioxide 21.7 mmol/L (21.0-32.0); Chloride 104 mmol/L (98-108); Estimated Creatinine Clearance 42.02 ml/min (50-250); Glucose 106 mg/dL (70-99); Potassium 4.1 mmol/L (3.3-5.1)
[2025-01-08 08:41] VITALS: BP 115/52; PULSE 80; RESP 18; TEMP 36.3; O2SAT 100
[2025-01-08] MEDS: Potassium Chloride Oral Tablet 20 MEQ PO ×2 (08:42→17:01)
[2025-01-08] MEDS: Vancomycin HCl 750 MG in 0.9% Normal Saline (250mL Bag) 250 ML 250 MG IV ×2 (08:43→20:05)
[2025-01-08] MEDS: Lidocaine 5% Patch 1 PATCH TOPICAL (09:54)
[2025-01-08] MEDS: buPROPion (SR) 150 MG Tablet.SA PO ×2 (09:54→20:06)
[2025-01-08] MEDS: APIXABAN 5 MG TABLET PO ×2 (09:55→20:06)
[2025-01-08 17:03] VITALS: BP 117/62; PULSE 90; RESP 18; TEMP 36.5; O2SAT 94
--- NOTE | 2025-01-08 17:21 | PN.HOSP_ITS ---
Reason for Visit Chief Complaint: Shortness of breath Subjective Subjective Patient was seen and examined today, she remains on room air. Patient remains afebrile. Objective Data Objective Data Vital Signs: Vital Signs Temp Pulse Resp BP Pulse Ox O2 Del Method O2 Flow Rate 97.7 F L 90 18 117/62 94 Room Air 3 01/08/25 17:03 01/08/25 17:03 01/08/25 17:03 01/08/25 17:03 01/08/25 17:03 01/08/25 17:03 01/08/25 06:47 Oxygen Flow Rate (L/min) 3 Oxygen Delivery Method Room Air Weight: 65.7 kg Body Mass Index (BMI) 25.6 Intake & Output: Intake and Output for Last 24 Hours 01/06/25 01/07/25 01/08/25 23:59 23:59 23:59 Intake Total 1300 / 1300 1380 / 1380 1115 / 1115 Output Total 800 / 2000 3500 / 3500 1400 / 1400 Balance 500 / -700 -2120 / -2120 -285 / -285 Medical Nutrition Assessment Dietitian: Malnutrition Criteria Met Start: 01/05/25 16:28 Freq: Status: Active Protocol: Document 01/05/25 16:28 (Rec: 01/05/25 16:28 [id number]) Nutrition Malnutrition Evidence of Yes Malnutrition Exists Malnutrition (severe Acute Illness/Injury ): Evidenced By Suboptimal Energy Intake (Severe),Weight Loss (Severe) Clinical Problem Acute Disease or Injury Related Malnutrition Etiology severe related to current illness Signs/Symptoms as evidenced by patient report of 4.2lbs (2.8%) weight loss in ~1 week and PO intakes meeting <50% of estimated energy needs for 1 week Status Active Problem Recommendation Dietitian Continue Cardiac diet to manage medical conditions. Recommendations/ Recommend same diet at discharge if test results show Changes CHF. Lab / Micro Data 01/07/25 05:21 01/08/25 05:19 Labs: Laboratory Results - last 24 hr 01/07/25 19:40: Vancomycin Trough 17.7 H 01/08/25 05:19: Sodium 140, Potassium 4.1, Chloride 104, Carbon Dioxide 21.7, Anion Gap 14, BUN 30 H, Creatinine 1.20, Estim Creat Clear Calc 42.02 L, Est GFR (MDRD) Non-Af 50 L, BUN/Creatinine Ratio 24.8 H, Glucose 106 H, Calcium 9.4 Micro: Microbiology 01/05/25 10:51 Blood Culture (Wb) - Anticubital Left Blood Culture - Preliminary No growth in 48 hours. 01/04/25 17:14 Blood Culture (Wb) - Anticubital Left Blood Culture - Preliminary No growth in 48 hours. 01/04/25 17:09 Blood Culture (Wb) - Left Wrist Blood Culture - Preliminary No growth in 48 hours. 01/05/25 23:15 Mucosa - Nasopharyngeal Respiratory Panel (PCR) - Final Physical Exam Narrative alert, oriented x3, no apparent distress, average body habitus and healthy appearing General Appearance: cooperative, well kempt and well developed Orientation / Consciousness: awake, oriented to person, oriented to place and oriented to time HEENT normocephalic and moist oral mucous membranes Eyes PERRL, EOMs intact bilaterally and conjunctivae normal Neck supple, no JVD, thyroid normal and no carotid bruits General: trachea midline Resp normal respiratory effort, no retractions, no use of accessory muscles and clear to auscultation bilaterally Auscultation: Negative for rales, rhonchi or wheezes Cardio regular rate, regular rhythm, S1 normal heart sound, S2 normal heart sound, no murmurs, no rub and no gallops GI normal to inspection, nondistended, normoactive bowel sounds, soft to palpation, non-tender and non-distended Extremity no clubbing, cyanosis or edema Skin no rashes or lesions noted General Skin Exam: no breakdown Neuro oriented x3, CN's II-XII intact bilaterally, no focal motor deficits and no sensory deficits noted Sensorium / Orientation: awake and alert Speech: speech normal Psych affect normal Assessment & Plan Assessment/Plan (1) Endocarditis: (2) New onset of congestive heart failure: PLAN: Plan 1. Acute diastolic congestive heart failure-new onset-patient on oral Lasix at this time #2 endocarditis-etiology unclear, patient's blood cultures are pending at this time, infectious diseases will see the patient and she is currently on vancomycin and Rocephin, patient had a PICC line inserted yesterday, she will need outpatient antibiotics ordered by infectious diseases tomorrow, it is likely she could go home tomorrow if this could be set up #3 hypoxia secondary to #1-resolved at this time, patient is on room air #4 current use of anticoagulation secondary to recent pulmonary embolism- complicates care, management, recovery, and prognosis #5 chronic depression-patient is on Lexapro and Wellbutrin #6 hyperlipidemia-patient is on statin #7 acute severe protein caloric malnutrition-as evidenced by patient report of 4.2 pound weight loss in less than a week and p.o. intake's meeting less than 50% of estimated energy needs for 1 week-continue cardiac diet. Nutritional services following. Total clinical time spent by myself addressing the patient's medical issues, reviewing all of her data, and collaborating with patient's care team: 35 minutes Charges/Coding Visit Charges Inpatient E&M: 65192 Subs Hosp L2
[2025-01-08 20:16] VITALS: PULSE 90; RESP 16
[2025-01-08 22:03] VITALS: BP 108/70; PULSE 90; RESP 16; TEMP 36.4; O2SAT 94
[2025-01-09 02:37] VITALS: BP 112/60; PULSE 86; RESP 18; TEMP 36.5; O2SAT 98
[2025-01-09 05:44] LABS: Hematocrit 31.3 % (37-47); Hemoglobin 10.1 g/dL (12.0-15.0); Immature Granulocytes Count 0.070 X10^3/uL (0.0-0.0); Mean Corp Hgb Conc 32.3 g/dL (32-36); Mean Corpuscular Volume 86.9 fL (81-99); Mean Platelet Vol. 10.8 fl (6.2-12.0); NRBC Flagged by Analyzer 0 % (0-5); Platelet Count 186 K/mm3 (150-450); RBC Distribution Width CV 15.4 % (11.6-14.6); RBC Distribution Width SD 49.0 fl (35.1-43.9); Red Blood Count 3.60 M/mm3 (4.2-5.4); White Blood Count 13.2 K/mm3 (4.4-11.0)
[2025-01-09 06:00] VITALS: BMI 26.4
[2025-01-09 07:06] VITALS: PULSE 82; RESP 12; O2SAT 96
[2025-01-09] MEDS: Potassium Chloride Oral Tablet 20 MEQ PO (07:34)
[2025-01-09] MEDS: Vancomycin HCl 750 MG in 0.9% Normal Saline (250mL Bag) 250 ML 250 MG IV (07:35)
[2025-01-09] MEDS: Ensure Plus High Protein 120 ML LIQUID PO ×2 (07:38→11:39)
[2025-01-09 07:40] VITALS: BP 104/69; PULSE 85; RESP 16; TEMP 36.2; O2SAT 98
[2025-01-09] MEDS: Lidocaine 5% Patch 1 PATCH TOPICAL (09:17)
[2025-01-09] MEDS: APIXABAN 5 MG TABLET PO (09:17)
[2025-01-09] MEDS: buPROPion (SR) 150 MG Tablet.SA PO (09:18)
--- NOTE | 2025-01-09 11:36 | CASEMGMT ---
KATH DELUNA into pt room to follow up in regards to HHC. Pt chose [facility]. [facility]. [facility]. [facility]. KATH DELUNA answered all pt questions. KATH DELUNA called [facility] and made referral. Waiting on acceptance.
--- NOTE | 2025-01-09 12:32 | PCM.DC.SUM ---
Providers Date of Admission: 01/04/25 Date of Discharge: 01/09/25 Primary Care Physician: SLOAN Vaca, APPLIANCE REPAIRER-C Consultations 01/04/25 19:02 Consult: Infectious Disease Routine Consulting Provider: Pradip Aguayo Reason for Consult: Possible endocarditis per echocardiogram EMERGENT Consult: No MD Notified: Yes Date Notified: 01/04/25 Time Notified: 19:02 Method of Notification: Verbal Reason For Visit: CONGESTIVE HEART FAILURE Diagnosis Discharge Diagnosis (1) Endocarditis: Status: Acute Code(s): I38 - Endocarditis, valve unspecified (2) New onset of congestive heart failure: Status: Acute Code(s): I50.9 - Heart failure, unspecified Medications at Discharge Home Medications albuterol sulfate 90 mcg/actuation aerosol inhaler 2 puff inhalation Q6H PRN shortness of breath or wheezing 04/15/23 bupropion HCl 150 mg tablet,12 hr sustained-release (Wellbutrin SR) 150 mg PO BID depression 06/23/24 escitalopram oxalate 10 mg tablet (Lexapro) 10 mg PO DAILY depression 06/23/24 lactobacillus combination no.9 4 billion cell capsule (Adult 50 Plus Probiotic) 4,000 mmu cells PO QDAY supplement 06/23/24 multivitamin (Daily Multi-Vitamin tablet) 1 tab PO DAILY vitamin 07/06/24 cholecalciferol (vitamin D3) 125 mcg (5,000 unit) capsule 125 mcg PO QDAY supplement 07/20/24 pantoprazole 20 mg tablet,delayed release (Protonix) 20 mg PO QDAY gerd 07/26/24 Oral appliance #1 ea 08/16/24 escitalopram oxalate 20 mg tablet (Lexapro) 20 mg PO QDAY depression 10/06/24 rosuvastatin 20 mg tablet 20 mg PO DAILY hyperlipidemia 10/06/24 apixaban 5 mg tablet (Eliquis) 5 mg PO BID 30 days #60 tabs 01/09/25 ceftriaxone 1 gram/50 mL in dextrose (iso-osmot) intravenous piggyback 2 g (100 mL) IV Q24 37 days #37 ea 01/09/25 furosemide 20 mg tablet (Lasix) 20 mg PO QODAY 90 days #45 tabs 01/09/25 vancomycin 750 mg intravenous solution 750 mg IV Q12H 37 days #74 ea 01/09/25 Hospital Course Operations None Procedures EKG, Transthoracic echo and - (Chest x-ray) Summary of Care Provided Minutes Spent on Discharge: 42 Hospital Course: Patient is a 64-year-old female who presented to [facility] ED on 01/04/2025 with shortness of breath. Hospital course is notable low. Patient discharged home with home health care in stable condition on 01/09. 1. Acute HFpEF with acute hypoxia, improved ? Presented with worsening shortness of breath and volume overload. Chest x-ray showed cardiac enlargement with interstitial edema. BNP 2279. Echo showed EF 65%, normal LV size and function, bileaflet diffuse mitral valve thickening and mild tricuspid valve regurg with elevated pulmonary arterial pressures. Was requiring up to 3 L nasal cannula during hospitalization, weaned back to room air by discharge. Treated with IV Lasix with good urine output. Strongly suspect that endocarditis is below contributed to this new onset HFpEF. Given good fluid status at discharge, will discharge on p.o. Lasix 20 mg every other day. Instructed patient to monitor her daily weights and if her weight begins to increase, recommended that she take Lasix on a daily basis and discuss with her PCP for further up titration as needed. 2. Endocarditis ? Infectious disease followed. Patient noted to have low-grade temperatures at home and leukocytosis in addition to symptoms on admit as above. Echo with concern for endocarditis. Blood cultures with no growth at 48 hours. Serologies for Bartonella and Q fever pending on discharge. Per ID, will treat with empiric vancomycin and ceftriaxone for 4 to 6 weeks on discharge, orders placed. PICC line placed on discharge. ID follow-up in 2 weeks. 3. Recent history of bilateral PE ? Patient had biopsy done of pulmonary nodule below and developed shortness of breath and hypoxia post biopsy that was initially concerning for pneumothorax. However, CTA chest on 11/03 showed bilateral pulmonary emboli with evidence of heart strain as well as bilateral lower lobe pulmonary infarctions. She was hospitalized from 11/03-11/05 for this. Echo then showed EF 60% with no evidence of right heart strain. Patient was stable for discharge home on Eliquis on 11/05. Continue home Eliquis. 4. Tobacco dependence ? Smoking half pack per day, 40-year smoking history. Denied need for nicotine replacement therapy while inpatient. Strongly encouraged cessation on discharge. 5. Anxiety/depression ? Continue home escitalopram and to program. 6. GERD ? Continue home PPI. 7. Hyperlipidemia ? Continue home statin. 8. Pulmonary nodule ? Follows with outpatient pulmonology. Biopsy done of left lower lung nodule was negative for malignancy in October. Continue close outpatient follow-up. Total clinical time spent by myself addressing the patient's medical issues, reviewing all the data, and collaborating with patient's care team: 42 minutes. Physical Exam Narrative alert, oriented x3, no apparent distress, average body habitus and healthy appearing General Appearance: cooperative, well kempt and well developed Orientation / Consciousness: awake, oriented to person, oriented to place and oriented to time HEENT normocephalic and moist oral mucous membranes Eyes PERRL, EOMs intact bilaterally and conjunctivae normal Neck supple, no JVD, thyroid normal and no carotid bruits General: trachea midline Resp normal respiratory effort, no retractions, no use of accessory muscles and clear to auscultation bilaterally Auscultation: Negative for rales, rhonchi or wheezes Cardio regular rate, regular rhythm, S1 normal heart sound, S2 normal heart sound, no murmurs, no rub and no gallops GI normal to inspection, nondistended, normoactive bowel sounds, soft to palpation, non-tender and non-distended Extremity no clubbing, cyanosis or edema Skin no rashes or lesions noted General Skin Exam: no breakdown Neuro oriented x3, CN's II-XII intact bilaterally, no focal motor deficits and no sensory deficits noted Sensorium / Orientation: awake and alert Speech: speech normal Psych affect normal Medical Records Data Medical Nutrition Assessment Dietitian: Malnutrition Criteria Met Start: 01/05/25 16:28 Freq: Status: Active Protocol: Document 01/05/25 16:28 (Rec: 01/05/25 16:28 [id number]) Nutrition Malnutrition Evidence of Yes Malnutrition Exists Malnutrition (severe Acute Illness/Injury ): Evidenced By Suboptimal Energy Intake (Severe),Weight Loss (Severe) Clinical Problem Acute Disease or Injury Related Malnutrition Etiology severe related to current illness Signs/Symptoms as evidenced by patient report of 4.2lbs (2.8%) weight loss in ~1 week and PO intakes meeting <50% of estimated energy needs for 1 week Status Active Problem Recommendation Dietitian Continue Cardiac diet to manage medical conditions. Recommendations/ Recommend same diet at discharge if test results show Changes CHF. Weight / BMI Weight Weight: 67.767 kg Body Mass Index (BMI) 26.4 ABG / Lab / Microbiology Data 01/09/25 04:56 01/08/25 05:19 Laboratory: Laboratory Results - last 24 hr 01/09/25 04:56: WBC 13.2 H, RBC 3.60 L, Hgb 10.1 L, Hct 31.3 L, MCV 86.9, MCH 28.1, MCHC 32.3, RDW Std Deviation 49.0 H, RDW Coeff of Millie 15.4 H, Plt Count 186, MPV 10.8, Immature Gran % (Auto) 0.500, Neut % (Auto) 73.4 H, Lymph % (Auto) 11.9 L, [place] % (Auto) 8.5, Eos % (Auto) 4.8, Baso % (Auto) 0.9, Absolute Neuts (auto) 9.6 H, Absolute Lymphs (auto) 1.57, Nucleated RBC % 0 Microbiology: Microbiology 01/05/25 10:51 Blood Culture (Wb) - Anticubital Left Blood Culture - Preliminary No growth in 48 hours. 01/04/25 17:14 Blood Culture (Wb) - Anticubital Left Blood Culture - Preliminary No growth in 48 hours. 01/04/25 17:09 Blood Culture (Wb) - Left Wrist Blood Culture - Preliminary No growth in 48 hours. 01/05/25 23:15 Mucosa - Nasopharyngeal Respiratory Panel (PCR) - Final D/C Instructions DC O2, CPAP, BIPAP Needs Home O2 Discharge instructions: No Meaningful Use Info Meaningful Use Meaningful Use Diagnoses (Choose all that apply): CHF CHF RICHA/ARB ordered at discharge?: No Reason RICHA/ARB not ordered?: Normal EF Documented LVEF (%): 65 Discharge Plan Admission Admit Date/Time: 01/04/25 11:50 Primary Reason for Your Visit: Shortness of breath Attending Provider: Mitch Martinez Primary Care Provider: Marsha Mendez Manohar Consulting Providers: Pradip Aguayo; Pablo Crump Instructions Additional Instructions / Restrictions: Please take Lasix every other day to help keep fluid off. Home health care will assist in you taking the IV antibiotic for endocarditis as prescribed below. Follow-up with your PCP in the next few weeks. Please call the cardiology office below to schedule an appointment for follow-up. Discharge Orders/Prescriptions Prescriptions: New Eliquis 5 mg Tablet 5 mg PO BID 30 Days Qty: 60 0RF furosemide [Lasix] 20 mg tablet 20 mg PO QODAY 90 Days Qty: 45 0RF ceftriaxone in dextrose,iso-os 1 gram/50 mL Piggyback 2 g IV Q24 37 Days Qty: 37 0RF Rx Instructions: stop date 02/15/25. Dx: endocarditis. Weekly bmp, cbc, LFT, vanc trough. Fax to [phone]. Routine picc care per protocol. vancomycin 750 mg recon soln 750 mg IV Q12H 37 Days Qty: 74 0RF Rx Instructions: stop date 02/15/25. Dx: endocarditis. Weekly bmp, cbc, LFT, vanc trough. Fax to [phone]. Routine picc care per protocol. Continued bupropion HCl [Wellbutrin SR] 150 mg tablet sustained-release 12 hr 150 mg PO BID escitalopram oxalate [Lexapro] 10 mg tablet 10 mg PO DAILY Rx Instructions: total of 30mg albuterol sulfate 90 mcg/actuation HFA aerosol inhaler 2 puff inhalation Q6H PRN (Reason: shortness of breath or wheezing) cholecalciferol (vitamin D3) 125 mcg (5,000 unit) capsule 125 mcg PO QDAY Adult 50 Plus Probiotic 4 billion cell capsule 4,000 mmu cells PO QDAY Rx Instructions: administer with a meal pantoprazole [Protonix] 20 mg tablet,delayed release (DR/EC) 20 mg PO QDAY escitalopram oxalate [Lexapro] 20 mg tablet 20 mg PO QDAY rosuvastatin 20 mg tablet 20 mg PO DAILY multivitamin [Daily Multi-Vitamin] Tablet 1 tab PO DAILY (DME) Oral appliance See Rx Instructions .ROUTE .MEDSUPPLY Qty: 1 0RF Rx Instructions: As directed Discontinued Eliquis DVT-PE Treat 30D Start 5 mg (74 tabs) tablets,dose pack See Rx Instructions .ROUTE .COMPLEX Qty: 74 0RF Rx Instructions: orally per package directions Referrals / Follow Up: Asael Salter MD [Med Staff - Active Staff, Cardiology] Marsha Mendez, APPLIANCE REPAIRER-C [Primary Care Provider, Family Practice] Disposition Disposition (needs filled in before D/C Order can be placed): Home Health Service Charges/Coding Visit Charges Inpatient E&M: 79048 Disch Hosp >30min
[2025-01-09 14:18] VITALS: BP 106/71; PULSE 94; RESP 18; TEMP 36.5; O2SAT 94
--- NOTE | 2025-01-09 14:35 | CASEMGMT ---
Scripts received from [place] for antibiotics, dressing change and labs, sent to [facility] and [facility].
--- NOTE | 2025-01-09 14:56 | CASEMGMT ---
RN MIKIE received call [facility] able to accept, [facility] able to accept. Running Pt medications through insurance.
--- NOTE | 2025-01-09 15:51 | CASEMGMT ---
[facility] provided cost $212.21/week for ceftraixone and $212.29/week for vanc. RN CM into pt room, pt agreeable to cost. [facility] SOC tomorrow morning. ID doctor states ok to miss 1 dose of IV antibiotic tonight and start home infusion tomorrow morning. Pt denies questions or concerns at this time. [facility] and [facility] updated.
--- NOTE | 2025-01-09 16:07 | PHA.DC_ITS ---
Pharmacy [facility] Counseling Pharmacy Service has performed discharge medication reconciliation and counseling for this patient. The patient's discharge medication list was reviewed for discrepancies and discrepancies were resolved. The patient was counseled on the following discharge medications and changes in medications for homegoing were reviewed. The Reason for Use, instructions for use, and potential side effects were reviewed for all new medications. The patient's questions regarding all of their medications were answered. 1. Ceftriaxone 2 grams daily 2. Vancomycin 750 mg IV daily 3. Furosemide 20 mg PO QOD 4. Apixaban 5 mg PO BID The patient was able to verbally demonstrate an understanding of their discharge medications. Medications at Discharge Home Medications albuterol sulfate 90 mcg/actuation aerosol inhaler 2 puff inhalation Q6H PRN shortness of breath or wheezing 04/15/23 bupropion HCl 150 mg tablet,12 hr sustained-release (Wellbutrin SR) 150 mg PO BID depression 06/23/24 escitalopram oxalate 10 mg tablet (Lexapro) 10 mg PO DAILY depression 06/23/24 lactobacillus combination no.9 4 billion cell capsule (Adult 50 Plus Probiotic) 4,000 mmu cells PO QDAY supplement 06/23/24 multivitamin (Daily Multi-Vitamin tablet) 1 tab PO DAILY vitamin 07/06/24 cholecalciferol (vitamin D3) 125 mcg (5,000 unit) capsule 125 mcg PO QDAY supplement 07/20/24 pantoprazole 20 mg tablet,delayed release (Protonix) 20 mg PO QDAY gerd 07/26/24 Oral appliance #1 ea 08/16/24 escitalopram oxalate 20 mg tablet (Lexapro) 20 mg PO QDAY depression 10/06/24 rosuvastatin 20 mg tablet 20 mg PO DAILY hyperlipidemia 10/06/24 apixaban 5 mg tablet (Eliquis) 5 mg PO BID 30 days #60 tabs 01/09/25 ceftriaxone 1 gram/50 mL in dextrose (iso-osmot) intravenous piggyback 2 g (100 mL) IV Q24 37 days #37 ea 01/09/25 furosemide 20 mg tablet (Lasix) 20 mg PO QODAY 90 days #45 tabs 01/09/25 vancomycin 750 mg intravenous solution 750 mg IV Q12H 37 days #74 ea 01/09/25
--- NOTE | 2025-01-09 16:10 | PN.ID_ITS ---
Physical Exam Narrative Feeling better, some dry cough, no fever, no n/v/d. Const alert and no apparent distress General Appearance: cooperative Resp normal air movement and clear to auscultation bilaterally Cardio regular rate and regular rhythm GI soft to palpation, non-tender and non-distended Skin no rashes or lesions noted ID ID: Route of nutrition/ use of supplements: [] Nutritional Intake: [] IV Site: [] Lane Catheter: [] Assessment & Plan Assessment/Plan (1) Endocarditis: PLAN: Bcx neg so far, wbc improved, pending serology for Bartonella and Q fever. Cont empiric vanc/ceftriaxone for 4-6 weeks iv abx. Wrote stop date as 02/15/25 with weekly labs. ID followup in 2 weeks, d/w employment case manager. Will follow
== END 2025-01-09 17:51 | disposition home health service (06) | DRG 291 ==
LOC: ED 11:42 → PCU 12:13
PROVIDERS: Internal Medicine Infectious Disease; Admitting Provider Internal Medicine; Emergency Provider Emergency Medicine; PCP Nurse Practitioner Family; Visit Provider Hospitalist
DX: I50.31 Acute diastolic (congestive) heart failure (principal); E43 Unspecified severe protein-calorie malnutrition; I38 Endocarditis, valve unspecified; F32.A Depression, unspecified; F41.9 Anxiety disorder, unspecified; E78.5 Hyperlipidemia, unspecified; Z87.891 Personal history of nicotine dependence; Z86.711 Personal history of pulmonary embolism; Z79.51 Long term (current) use of inhaled steroids; Z79.899 Other long term (current) drug therapy; Z79.01 Long term (current) use of anticoagulants; Z68.25 Body mass index [BMI] 25.0-25.9, adult
CPT/HCPCS: 36415; 36569; 71046; 80048; 80053; 80202; 83605; 83880; 84484; 85025; 86611; 87040; 87633; 93005; 93308; 94640; 97802; 97803; 99285; Q9957; A4216; C8924; J1938

== ENCOUNTER 2025-01-15 13:57 | Inpatient (IN) | payer MEDICARE, SELFPAY ==
[2025-01-15] VITALS (10 sets, daily range): BP systolic 102–122; BP diastolic 63–71; PULSE 77–104; RESP 17–26; TEMP 36.6–37.2; O2SAT 84–99; BMI 26.5; BMI 26.6
[2025-01-15 14:35] LABS: Hematocrit 24.8 % (37-47); Hemoglobin 8.0 g/dL (12.0-15.0); Immature Granulocytes Count 0.040 X10^3/uL (0.0-0.0); Mean Corp Hgb Conc 32.3 g/dL (32-36); Mean Corpuscular Volume 87.9 fL (81-99); Mean Platelet Vol. 10.5 fl (6.2-12.0); NRBC Flagged by Analyzer 0 % (0-5); Platelet Count 195 K/mm3 (150-450); RBC Distribution Width CV 15.2 % (11.6-14.6); RBC Distribution Width SD 48.6 fl (35.1-43.9); Red Blood Count 2.82 M/mm3 (4.2-5.4); White Blood Count 12.7 K/mm3 (4.4-11.0)
--- NOTE | 2025-01-15 14:49 | RAD_ITS ---
PROCEDURE: RAD/Chest PA and Lateral
[2025-01-15 14:53] LABS: Troponin T High Sensitivity 28 ng/L (<=14)
[2025-01-15 14:57] LABS: Anion Gap 12 (5-15); BUN 16 mg/dL (4-19); BUN/Creat Ratio 17.7 RATIO (10-20); Calcium,Total 9.1 mg/dL (7.6-11.0); Carbon Dioxide 22.1 mmol/L (21.0-32.0); Chloride 106 mmol/L (98-108); Estimated Creatinine Clearance 55.06 ml/min (50-250); Glucose 136 mg/dL (70-99); Potassium 3.3 mmol/L (3.3-5.1); Pro- Brain NATRIURETIC PEPTIDE 1534 pg/mL (<=900)
--- NOTE | 2025-01-15 15:05 | ED.VIS.DYS ---
HPI History of Present Illness Chief Complaint: Shortness of Breath Detail of Chief Complaint: Shortness of breath, orthopnea last night Informant: patient Onset/Context/Timing Onset: Yesterday Context: sudden Timing: Continuous Quality: Positive for Dyspnea on exertion and Orthopnea (Two-pillow); Negative for PND Current Severity: Mild Worsened by: Exertion and Lying flat Relieved by: - (Upright position and oxygen makes it better and remaining still) Associated Symptoms Negative for cough, rhinorrhea, post nasal drip, ear pain, fever or sore throat Narrative PE Risk Factors: Negative for Cancer, OCP + Smoking + > 35, Prior DVT or PE, Recent immobilization, Recent surgery or Recent travel Prior similar symptoms: Yes (New onset CHF and endocarditis) Recent Illness/Hospitalization: Yes PFSH PFS Medical History Wears glasses Arthritis Shortness of breath on exertion Leg cramps Change in bowel habit Generalized abdominal pain Heart murmur Dyspnea on exertion Post-menopausal High cholesterol Back pain Syncope Gastric reflux Smoker BiPAP (biphasic positive airway pressure) dependence Asthma History of echocardiogram History of stress test Cardiology follow-up encounter Hyperlipidemia Skin cancer Anxiety and depression Home Medications ?Medication ?Instructions ?Recorded ?Last Taken ?Type albuterol sulfate 90 mcg/actuation 2 puff inhalation Q6H PRN 04/15/23 Unknown History aerosol inhaler shortness of breath or wheezing bupropion HCl 150 mg tablet,12 hr 150 mg PO BID depression 06/23/24 Unknown History sustained-release (Wellbutrin SR) escitalopram oxalate 10 mg tablet 10 mg PO DAILY depression 06/23/24 Unknown History (Lexapro) lactobacillus combination no.9 4 4,000 mmu cells PO QDAY supplement 06/23/24 Unknown History billion cell capsule (Adult 50 Plus Probiotic) multivitamin (Daily Multi-Vitamin 1 tab PO DAILY vitamin 07/06/24 Unknown History tablet) cholecalciferol (vitamin D3) 125 125 mcg PO QDAY supplement 07/20/24 Unknown History mcg (5,000 unit) capsule pantoprazole 20 mg tablet,delayed 20 mg PO QDAY gerd 07/26/24 Unknown History release (Protonix) Oral appliance #1 ea 08/16/24 Unknown Rx escitalopram oxalate 20 mg tablet 20 mg PO QDAY depression 10/06/24 Unknown History (Lexapro) rosuvastatin 20 mg tablet 20 mg PO DAILY hyperlipidemia 10/06/24 Unknown History apixaban 5 mg tablet (Eliquis) 5 mg PO BID 30 days #60 tabs 01/09/25 Unknown Rx ceftriaxone 1 gram/50 mL in 2 g (100 mL) IV Q24 37 days #37 ea 01/09/25 Unknown Rx dextrose (iso-osmot) intravenous piggyback furosemide 20 mg tablet (Lasix) 20 mg PO QODAY 90 days #45 tabs 01/09/25 Unknown Rx vancomycin 750 mg intravenous 750 mg IV Q12H 37 days #74 ea 01/09/25 Unknown Rx solution Allergy/AdvReac Type Severity Reaction Status Date / Time Penicillins Allergy Intermediate Hives Verified 01/15/25 13:58 Family History Mother Breast cancer Hypertension Aunt Breast cancer Brother Hypertension Father Atrial fibrillation Surgical History History of esophagogastroduodenoscopy (EGD) Hx of colonoscopy Cyst Removal from breast History of LAVH Hx of appendectomy Social History Smoking Status: Former smoker quit date: 11/02/24 pack-years: 20 Tobacco: How many years used: 40 alcohol intake: never substance use type: does not use caffeine: Yes what type of physical activity do you participate in: walking frequency: 3-4 times per week seatbelt use: always do you feel safe at home: Yes additional social history: , Just moved back from the [facility] ROS ROS ED Constitutional Constitutional ED: Denies chills, fever(s), sweats or weight loss Eyes Eyes: Denies blurry vision or change in vision ENT ENT ED: Denies ear pain, rhinorrhea or sore throat Cardiovascular Cardiovascular: Reports orthopnea; Denies chest pain, palpitations or paroxysmal nocturnal dyspnea Respiratory/Chest Respiratory/Chest: Reports dyspnea on exertion and orthopnea; Denies cough, paroxysmal nocturnal dyspnea or sputum Gastrointestinal Gastrointestinal: Reports other Details: Patient reports her stool is darker than normal. Is not maroon in color. ; Denies abdominal pain, melena, nausea or vomiting Genitourinary Genitourinary ED: Denies dysuria, hematuria or urinary frequency Musculoskeletal Musculoskeletal: Denies arthralgias, back pain or myalgias Integumentary Denies rash Neurologic Neurologic: Denies headache(s) or paresthesias Endocrine Endocrinology: Denies cold intolerance or heat intolerance Hematologic/Lymphatic Hematologic/Lymphatic: Denies easy bleeding or easy bruising EXAM Physical Exam Const Vital Signs: 01/15/25 13:58 01/15/25 14:01 01/15/25 14:25 Temperature 98.9 F Temperature Source Oral Pulse Rate 97 96 Respiratory Rate 26 H 20 H Respiratory Effort Respiratory Depth Respiratory Pattern Blood Pressure 115/67 Blood Pressure Mean 83 Pulse Ox 84 98 Oxygen Delivery Method Room Air Nasal Cannula Nasal Cannula Oxygen Flow Rate (L/min) 2 2 01/15/25 14:51 01/15/25 15:01 01/15/25 16:00 Temperature 97.8 F 98.2 F Temperature Source Oral Oral Pulse Rate 86 92 Respiratory Rate 19 H 19 H Respiratory Effort Short of Breath Labored Respiratory Depth Deep Respiratory Pattern Tachypnea Blood Pressure 118/71 115/71 Blood Pressure Mean 86 85 Pulse Ox 97 98 Oxygen Delivery Method Nasal Cannula Nasal Cannula Oxygen Flow Rate (L/min) 2 01/15/25 17:00 Temperature 98.1 F Temperature Source Oral Pulse Rate 77 Respiratory Rate 25 H Respiratory Effort Respiratory Depth Respiratory Pattern Blood Pressure 106/63 Blood Pressure Mean 77 Pulse Ox 97 Oxygen Delivery Method Nasal Cannula Oxygen Flow Rate (L/min) Positive well nourished and well developed Constitutional Narrative: Patient appears pale. Patient was seen November 03 by me and diagnosed with acute pulmonary embolus with acute cor pulmonale. She is on apixaban. She was seen January 04 by me and admitted for new onset congestive heart failure with elevated white count. She also was found to have evidence of endocarditis. She is presently on Rocephin and vancomycin. She presents because of new onset orthopnea. She states she lives alone and no one's told her she looks pale. In my opinion she does appear pale. General Appearance ED: well developed and pallor HEENT Reports moist mucous membranes atraumatic; Negative for tenderness Eyes PERRL and EOMs intact bilaterally General Eye ED: Yes pale conjunctiva; Negative for scleral icterus Neck no lymphadenopathy, supple, no meningeal signs and no JVD Resp normal respiratory effort and No clear to auscultation bilaterally Auscultation: rales bilateral lower Cardio regular rate, regular rhythm, S1 normal heart sound, S2 normal heart sound and no murmurs GI non-tender and non-distended Auscultation: normoactive bowel sounds Palpation: soft Back/Spine no CVA tenderness Extremity normal to inspection General Extremety ED: Negative for tenderness Neuro oriented x3 and CN's II-XII intact bilaterally Sensorium / Orientation: alert Psych mental status grossly normal Skin no wounds and skin turgor normal General Skin Exam: pallor; Negative for jaundice MDM MDM MDM Narrative Medical decision making narrative: Clinically patient is in heart failure. Will obtain chest x-ray and BNP to confirm. EKG to rule out ischemia. Since she appears pale CBC was obtained. There is been approximately 3 g drop in her hemoglobin. With the nurse in room as aircraft sales representative rectal exam was performed. Her stool is very dark and possibly black. Since patient has exacerbation of her CHF and is on Bumex IV Bumex was ordered and Nitropaste for preload reduction. Lab Data Attestation: I reviewed the patient's lab results. Lab results narrative: White count is elevated 12.7 thousand with normal differential. Patient is anemic with an H&H of 8 and 24.8. This is a decrease of approximately 2 g since January 09 and 3 creams since January 07. Labs: Laboratory Results - last 24 hr 01/15/25 01/15/25 14:29 16:24 WBC 12.7 H RBC 2.82 L Hgb 8.0 L Hct 24.8 L MCV 87.9 MCH 28.4 MCHC 32.3 RDW Std Deviation 48.6 H RDW Coeff of Millie 15.2 H Plt Count 195 MPV 10.5 Immature Gran % (Auto) 0.300 Neut % (Auto) 68.2 Lymph % (Auto) 13.9 L [place] % (Auto) 7.3 Eos % (Auto) 9.6 H Baso % (Auto) 0.7 Absolute Neuts (auto) 8.7 H Absolute Lymphs (auto) 1.76 Nucleated RBC % 0 Sodium 139 Potassium 3.3 Chloride 106 Carbon Dioxide 22.1 Anion Gap 12 BUN 16 Creatinine 0.93 Estim Creat Clear Calc 55.06 Est GFR (MDRD) Non-Af 68 BUN/Creatinine Ratio 17.7 Glucose 136 H Calcium 9.1 Troponin T High Sens 28 H D Troponin T Hi Sens 2 Hr 27 H NT pro BNP II 1534 H Radiography Chest X-Ray - ED: Read by ED Physician (Patient had 2 views of her chest. There is no pleural effusion. There is evidence of venous congestion and findings consistent with heart failure. Will treat with loop diuretic, nitroglycerin paste) Diagnostic Testing: Clinical Impression(s) from Imaging Studies Chest X-Ray 01/15/25 14:49 IMPRESSION: Mild interstitial prominence. Stable Reading Location: [facility] EKG Initial EKG: Attestation: I personally reviewed and interpreted this EKG as follows: Interpretation: Sinus Rhythm (Rate is 88. Parable is 132 ms. QRS duration 86 ms. QT duration 348 ms. [place] is normal. There is artifact at the computer is reading as nonseptic changes.) Management Discussion w/another healthcare provider: Hospitalist (Spoke with Dr. Robi Martinez. Asked if Dr. Meeks was available. Dr. Meeks is in town and is scheduled to see the patient tomorrow.) Treatment and Re-Evaluation :: Still was positive for blood. Since patient had bilateral pulmonary embolus with cor pulmonale approximately 2 months ago not able to stop her anticoagulant, apixaban 5 mg twice daily. The heart failure would explain her troponin elevation. In my opinion the elevate troponin is not due to cardiac ischemia. Critical Care Time Critical Care Time: Yes Critical care time (excluding procedures): 30-74 minutes (31), Including time spent: (History, physical, documentation, independent or potation laboratory results), Discussing w/Patient &/or Family/Primer Press Operator, Discussing w/Consultants and Arranging Admission or Transfer Discharge Plan Dx/Rx/DC Orders Clinical Impression: Acute exacerbation of CHF (congestive heart failure), Acute hyperglycemia, Endocarditis, Anticoagulant long-term use, Anemia due to acute blood loss, GI (gastrointestinal bleed) Disposition Disposition: Acute Care [facility]
[2025-01-15 16:49] LABS: Troponin T High Sens 2 HR 27 ng/L (<=14)
--- NOTE | 2025-01-15 17:15 | PCM.HP.STD ---
[facility] - General General Date of Service: 01/15/25 Chief Complaint: Shortness of breath and fatigue [facility] Narrative MARY AGUILERA, is a 64 F who presented to [facility] ED on 01/09/2025 with shortness of breath and fatigue. Patient was recently hospitalized here from 01/04-01/09 for a HFpEF exacerbation secondary to endocarditis. Patient diuresed well during hospitalization and was weaned off supplemental oxygen by discharge. She was discharged home on IV ceftriaxone and IV vancomycin with plan for 4 to 6-week courses of both total. Patient was also hospitalized here in October and was found to have a bilateral PE then. She had a lung biopsy done for a lung nodule (pathology negative for bleeding seen) and went to the ER after for shortness of breath and was found on CTA chest to have a PE. She was able to be discharged home on Eliquis after a short hospitalization. Patient presents today from home with worsening shortness of breath and fatigue over the past few days. In the ER she was found to have a hemoglobin of 8.0, down from baseline 10-11 during previous hospitalization. Stool occult positive. Patient reports having intermittent diarrhea since discharge that she attributed to the IV antibiotics. Denies it being dark in nature that she was aware of. Notably patient did have EGD and colonoscopy done with Dr. Ayala in June of this year. EGD showed erythematous mucosa in the gastric body and antrum, was otherwise benign. Colonoscopy showed one 15 mm nonbleeding polyp that was resected and retrieved and a few other small nonbleeding polyps that were removed as well. In the ED today she is borderline tachycardic but otherwise normotensive and stable on room air at rest. Labs were otherwise fairly benign. Given concern for GI bleed with anemia, hospitalist was contacted for admission. I saw the patient at bedside in the ED. Patient was mildly fatigued and pale appearing but otherwise sitting back comfortably in bed, conversing normally, in no acute distress. She noted a mild chest pain currently, similar to when her prior hospitalization. Otherwise denies any shortness of breath at rest. Denies any other acute concerns currently. Will be admitted for further management. [facility] Medical History Wears glasses Arthritis Shortness of breath on exertion Leg cramps Change in bowel habit Generalized abdominal pain Heart murmur Dyspnea on exertion Post-menopausal High cholesterol Back pain Syncope Gastric reflux Smoker BiPAP (biphasic positive airway pressure) dependence Asthma History of echocardiogram History of stress test Cardiology follow-up encounter Hyperlipidemia Skin cancer Anxiety and depression Home Medications ?Medication ?Instructions ?Recorded ?Last Taken ?Type albuterol sulfate 90 mcg/actuation 2 puff inhalation Q6H PRN 04/15/23 Unknown History aerosol inhaler shortness of breath or wheezing bupropion HCl 150 mg tablet,12 hr 150 mg PO BID depression 06/23/24 01/15/25 History sustained-release (Wellbutrin SR) escitalopram oxalate 10 mg tablet 10 mg PO DAILY depression 06/23/24 01/15/25 History (Lexapro) lactobacillus combination no.9 4 4,000 mmu cells PO QDAY supplement 06/23/24 01/14/25 History billion cell capsule (Adult 50 Plus Probiotic) multivitamin (Daily Multi-Vitamin 1 tab PO DAILY vitamin 07/06/24 01/14/25 History tablet) cholecalciferol (vitamin D3) 125 125 mcg PO QDAY supplement 07/20/24 01/15/25 History mcg (5,000 unit) capsule Oral appliance #1 ea 08/16/24 Unknown Rx escitalopram oxalate 20 mg tablet 20 mg PO QDAY depression 10/06/24 01/15/25 History (Lexapro) rosuvastatin 20 mg tablet 20 mg PO DAILY hyperlipidemia 10/06/24 01/15/25 History apixaban 5 mg tablet (Eliquis) 5 mg PO BID 30 days #60 tabs 01/09/25 01/15/25 Rx ceftriaxone 1 gram/50 mL in 2 g (100 mL) IV Q24 37 days #37 ea 01/09/25 01/15/25 Rx dextrose (iso-osmot) intravenous piggyback furosemide 20 mg tablet (Lasix) 20 mg PO QODAY 90 days #45 tabs 01/09/25 01/14/25 Rx vancomycin 750 mg intravenous 750 mg IV Q12H 37 days #74 ea 01/09/25 01/15/25 Rx solution acetaminophen 500 mg capsule 1,000 mg PO Q6H PRN pain 01/15/25 01/15/25 History Allergy/AdvReac Type Severity Reaction Status Date / Time Penicillins Allergy Intermediate Hives Verified 01/15/25 13:58 Family History Mother Breast cancer Hypertension Aunt Breast cancer Brother Hypertension Father Atrial fibrillation Surgical History History of esophagogastroduodenoscopy (EGD) Hx of colonoscopy Cyst Removal from breast History of LAVH Hx of appendectomy Social History Smoking Status: Former smoker quit date: 11/02/24 pack-years: 20 Tobacco: How many years used: 40 alcohol intake: never substance use type: does not use caffeine: Yes what type of physical activity do you participate in: walking frequency: 3-4 times per week seatbelt use: always do you feel safe at home: Yes additional social history: , Just moved back from the [facility] Constitutional Constitutional: Reports fatigue; Denies chills, fever(s) or weakness Cardiovascular Cardiovascular: Reports dyspnea on exertion; Denies chest pain, edema, lightheadedness or palpitations Respiratory/Chest Respiratory/Chest: Denies cough, shortness of breath at rest or wheezing Gastrointestinal Gastrointestinal: Reports loose stools; Denies abdominal pain, constipation, nausea or vomiting Musculoskeletal Musculoskeletal: Denies arthralgias or myalgias Neurologic Neurologic: Denies dizziness, focal weakness or headache(s) Vital Signs Vital Signs Vital Signs: 01/15/25 13:58 01/15/25 14:01 01/15/25 14:25 Temperature 98.9 F Temperature Source Oral Pulse Rate 97 96 Respiratory Rate 26 H 20 H Respiratory Effort Respiratory Depth Respiratory Pattern Blood Pressure 115/67 Blood Pressure Mean 83 Pulse Ox 84 98 Oxygen Delivery Method Room Air Nasal Cannula Nasal Cannula Oxygen Flow Rate (L/min) 2 2 01/15/25 14:51 01/15/25 15:01 01/15/25 16:00 Temperature 97.8 F 98.2 F Temperature Source Oral Oral Pulse Rate 86 92 Respiratory Rate 19 H 19 H Respiratory Effort Short of Breath Labored Respiratory Depth Deep Respiratory Pattern Tachypnea Blood Pressure 118/71 115/71 Blood Pressure Mean 86 85 Pulse Ox 97 98 Oxygen Delivery Method Nasal Cannula Nasal Cannula Oxygen Flow Rate (L/min) 2 01/15/25 17:00 Temperature 98.1 F Temperature Source Oral Pulse Rate 77 Respiratory Rate 25 H Respiratory Effort Respiratory Depth Respiratory Pattern Blood Pressure 106/63 Blood Pressure Mean 77 Pulse Ox 97 Oxygen Delivery Method Nasal Cannula Oxygen Flow Rate (L/min) Weight Weight: 67.948 kg Body Mass Index (BMI) 26.5 Physical Exam Const alert, oriented x3, no apparent distress and average body habitus Constitutional Narrative: Pleasant upper middle-aged female, mildly fatigued and pale appearing, otherwise sitting back comfortably in bed, conversing normally, in no acute distress. General Appearance: cooperative and comfortable HEENT normocephalic, head/scalp atraumatic, hearing grossly normal bilaterally, nasal mucous membranes and turbinates normal and moist oral mucous membranes Eyes PERRL, EOMs intact bilaterally and conjunctivae normal Neck full ROM Chest inspection of chest normal Resp normal respiratory effort, normal air movement, no use of accessory muscles and clear to auscultation bilaterally Cardio regular rate, regular rhythm, no murmurs and peripheral pulses 2+ throughout GI normal to inspection, nondistended, normoactive bowel sounds, soft to palpation, non-tender and non-distended Back/Spine normal ROM Extremity normal to inspection, full ROM and no pedal edema Skin no rashes or lesions noted Psych mental status grossly normal Results Lab / Micro Data 01/15/25 14:29 01/15/25 14:29 Labs: Laboratory Results - last 24 hr 01/15/25 14:29: WBC 12.7 H, RBC 2.82 L, Hgb 8.0 L, Hct 24.8 L, MCV 87.9, MCH 28.4, MCHC 32.3, RDW Std Deviation 48.6 H, RDW Coeff of Millie 15.2 H, Plt Count 195, MPV 10.5, Immature Gran % (Auto) 0.300, Neut % (Auto) 68.2, Lymph % (Auto) 13.9 L, [place] % (Auto) 7.3, Eos % (Auto) 9.6 H, Baso % (Auto) 0.7, Absolute Neuts (auto) 8.7 H, Absolute Lymphs (auto) 1.76, Nucleated RBC % 0, Sodium 139, Potassium 3.3, Chloride 106, Carbon Dioxide 22.1, Anion Gap 12, BUN 16, Creatinine 0.93, Estim Creat Clear Calc 55.06, Est GFR (MDRD) Non-Af 68, BUN/Creatinine Ratio 17.7, Glucose 136 H, Calcium 9.1, Troponin T High Sens 28 H D, NT pro BNP II 1534 H 01/15/25 16:24: Troponin T Hi Sens 2 Hr 27 H Micro: Microbiology 01/15/25 15:10 Stool Stool Occult Blood (RUTH) - Final Occult Blood Positive Imaging Radiology Impression Chest X-Ray 01/15/25 14:49 IMPRESSION: Mild interstitial prominence. Stable Reading Location: [id number] Assessment & Plan Assessment/Plan (1) Anemia due to acute blood loss: (2) GI (gastrointestinal bleed): PLAN: Plan Patient is a 64-year-old female who presented to [facility] ED on 01/15/2025 with shortness of breath and fatigue. 1. Acute blood loss anemia with suspected upper GI bleed, adverse effect of anticoagulation with Eliquis, history of GERD ? Admit under inpatient status to PCU. GI consulted. Hemoglobin 8.0 on admit, stable between 10 and 11 during recent hospitalization. Hemoccult positive in the ED. Notably patient had EGD and colonoscopy done in June with Dr. Ayala. EGD showed erythematous mucosa in the gastric body and antrum, was otherwise benign. Colonoscopy showed one 15 mm nonbleeding polyp that was resected and retrieved and a few other small nonbleeding polyps that were removed as well. BUN to creatinine ratio is normal on this admit. Still, highest suspicion is for GI bleed in setting of home Eliquis. Okay for clear liquid diet for now then n.p.o. at midnight with plan for EGD tomorrow. Will treat with IV PPI twice daily. Follow-up H&H tonight and then CBC tomorrow morning, transfuse for hemoglobin less than 7. Hold home Eliquis. 2. Recent history of bilateral PE on Eliquis ? Vascular surgery consulted. Recent hospitalization here from 11/03-11/05 for this. Had lung biopsy done for pulmonary nodule as below and had shortness of breath and hypoxia afterwards. CTA chest showed bilateral PE with evidence of heart strain and bilateral lower lobe pulmonary infarctions. Echo showed EF 60%, no evidence of right heart strain. She was stable for discharge home on Eliquis then. Unfortunately no lower extremity duplex ultrasound was done during that hospitalization. Given patient's GI bleed as above, suspect she may need IVC filter placement. Will obtain lower extremity duplex ultrasound at this time. Appreciate vascular surgery recommendations. 3. Recent history of endocarditis ? Recently hospitalized from 01/04-01/09 for this. ID followed. Patient was discharged on IV ceftriaxone and vancomycin with plan for 4 to 6-week course of both. Afebrile and noninfectious appearing on admit. Will continue IV ceftriaxone and vancomycin at this time. 4. Chronic HFpEF ? Pulmonary edema and volume overload noted on admit during recent hospitalization on 01/04. BNP 2279 on 01/04. Was diuresed with IV Lasix during the hospitalization and was euvolemic on discharge. Presented with shortness of breath on this admit as above. Chest x-ray showed mild interstitial prominence, no pleural effusions, no other concerning findings. BNP 1534. Stable on room air at rest. Suspect very mild vascular congestion 3 primarily to anemia above. Will continue p.o. Lasix 20 mg daily at this time. 5. Tobacco dependence ? Most recently smoking half pack per day, 40-year smoking history. Nicotine replacement therapy available if requested. Discussed cessation of discharge. 6. Anxiety/depression ? Stable. Continue home escitalopram and bupropion. 7. Pulmonary nodule ? Follows with outpatient pulmonology. Biopsy done of left lower lung nodule was negative for malignancy in October. Continue outpatient follow-up. DVT prophylaxis: SCDs CODE STATUS: Full code, verified Expected disposition: Home, TBD Total clinical time spent by myself addressing the patient's medical issues, reviewing all the data, and collaborating with patient's care team: 77 minutes. Charges/Coding Visit Charges Inpatient E&M: 74351 Init Hosp L3
[2025-01-15] MEDS: Pantoprazole Sodium 40 MG in 0.9% Normal Saline (100mL MB+) 100 ML 300 MG IV (18:11)
[2025-01-15 19:20] LABS: Troponin T High Sens 4 HR 29 ng/L (<=14)
--- NOTE | 2025-01-15 20:07 | VDLE_ITS ---
Reason For Study VL/Venous Duplex US - Vinod Extrem
--- NOTE | 2025-01-15 20:32 | PCM.RX.CS ---
Consult Antibiotic Management Pharmacy has been consulted to manage selected antibiotic: Vancomycin Type of Intervention Type of Consult: New start Labs Labs: Sodium 139 mmol/L (133-145) 01/15/25 14:29 Potassium 3.3 mmol/L (3.3-5.1) 01/15/25 14:29 Chloride 106 mmol/L (98-108) 01/15/25 14:29 Carbon Dioxide 22.1 mmol/L (21.0-32.0) 01/15/25 14:29 Anion Gap 12 (5-15) 01/15/25 14:29 BUN 16 mg/dL (4-19) 01/15/25 14:29 Creatinine 0.93 mg/dL (0.70-1.20) 01/15/25 14:29 Est GFR (MDRD) Non-Af 68 (>60) 01/15/25 14:29 BUN/Creatinine Ratio 17.7 RATIO (10-20) 01/15/25 14:29 Glucose 136 mg/dL (70-99) H 01/15/25 14:29 Microbiology Microbiology: Microbiology 01/15/25 15:10 Stool Stool Occult Blood (RUTH) - Final Occult Blood Positive Dosing Weight Weight used for dosin kg Estimated Creatinine Clearance Estimated Creatinine Clearance: 55 Pharmacy Plan for Drug Dosing Pharmacy Plan for Drug Dosing: Ordered to continue patient's home vancomycin IV with previous trough goal of 15-20. Currently on 750mg q12h, with the last dose given in a.m. 01/15/25. Per policy, will draw a random vancomycin level now and determine further orders from that result. Pharmacy Service will continue to monitor and adjust dosing as required. Follow-Up Labs Follow-Up Labs: Trough: Vancomycin (random) Date/Time Labs Ordered Labs to be done on [date and time ordered]: 01/15/25 @2100
[2025-01-15] MEDS: buPROPion (SR) 150 MG Tablet.SA PO (20:55)
[2025-01-15 22:33] LABS: Hematocrit 24.0 % (37-47); Hemoglobin 7.4 g/dL (12.0-15.0)
[2025-01-15 23:13] LABS: Vancomycin, Random Level 13.2 ug/mL (0.0-15.0)
[2025-01-15] MEDS: Vancomycin Trough/Random Due 1 LAB MC (23:16)
--- NOTE | 2025-01-15 23:36 | PCM.RX.CS ---
Consult Antibiotic Management Pharmacy has been consulted to manage selected antibiotic: Vancomycin Type of Intervention Type of Consult: New start Suspected Infection Suspected Infection: Endocarditis Labs Labs: Sodium 139 mmol/L (133-145) 01/15/25 14:29 Potassium 3.3 mmol/L (3.3-5.1) 01/15/25 14:29 Chloride 106 mmol/L (98-108) 01/15/25 14:29 Carbon Dioxide 22.1 mmol/L (21.0-32.0) 01/15/25 14:29 Anion Gap 12 (5-15) 01/15/25 14:29 BUN 16 mg/dL (4-19) 01/15/25 14:29 Creatinine 0.93 mg/dL (0.70-1.20) 01/15/25 14:29 Est GFR (MDRD) Non-Af 68 (>60) 01/15/25 14:29 BUN/Creatinine Ratio 17.7 RATIO (10-20) 01/15/25 14:29 Glucose 136 mg/dL (70-99) H 01/15/25 14:29 Random Vancomycin 13.2 ug/mL (0.0-15.0) 01/15/25 22:22 Microbiology Microbiology: Microbiology 01/15/25 15:10 Stool Stool Occult Blood (RUTH) - Final Occult Blood Positive Dosing Weight Weight used for dosin kg Estimated Creatinine Clearance Estimated Creatinine Clearance: 55 Goal Trough Goal Trough: 15-20 mcg/mL Pharmacy Plan for Drug Dosing Pharmacy Plan for Drug Dosing: Random vancomycin level of 13.2 was below the target range of 15-20. Will increase the previous home dose to 1000mg q12h, and will draw a trough level prior to the fourth dose of the new regimen. Pharmacy Service will continue to monitor and adjust dosing as required. Follow-Up Labs Follow-Up Labs: Trough: Vancomycin Date/Time Labs Ordered Labs to be done on [date and time ordered]: 01/17/25 @1100
[2025-01-16] VITALS (17 sets, daily range): BP systolic 107–121; BP diastolic 62–69; PULSE 85–98; RESP 16–20; TEMP 36.6–37.1; O2SAT 85–99; BMI 26.6
--- NOTE | 2025-01-16 00:05 | NURSING ---
Left upper arm double-lumen PICC present on admission. Dressing dated as 01/08/25. This RN in to change PICC dressing. Dressing and statlock removed. Site and lumens cleansed with chlorhexidine; allowed to dry. New statlock placed. New dressing with CHG impregnated patch applied. Red port has blood return and flushes. Purple port does not have blood return, but flushes. Loop extensions are present on both lumens. These were not changed d/t a new set being unavailable. Distal needleless connectors changed. Both ports flushed with normal saline. Site with green/yellow bruising; but otherwise appears intact. Pt tolerated well. Primary nurse aware.
[2025-01-16] MEDS: Vancomycin HCl 1,000 MG in 0.9% Normal Saline (250mL Bag) 250 ML 250 MG IV ×3 (00:12→23:46)
[2025-01-16 03:25] LABS: Hematocrit 25.1 % (37-47); Hemoglobin 7.9 g/dL (12.0-15.0); Immature Granulocytes Count 0.070 X10^3/uL (0.0-0.0); Mean Corp Hgb Conc 31.5 g/dL (32-36); Mean Corpuscular Volume 88.4 fL (81-99); Mean Platelet Vol. 10.3 fl (6.2-12.0); NRBC Flagged by Analyzer 0 % (0-5); Platelet Count 206 K/mm3 (150-450); RBC Distribution Width CV 15.1 % (11.6-14.6); RBC Distribution Width SD 48.2 fl (35.1-43.9); Red Blood Count 2.84 M/mm3 (4.2-5.4); White Blood Count 13.2 K/mm3 (4.4-11.0)
--- NOTE | 2025-01-16 03:25 | CT_ITS ---
PROCEDURE: CT/CTA Chest W/WO Contrast
[2025-01-16 03:52] LABS: Anion Gap 12 (5-15); BUN 16 mg/dL (4-19); BUN/Creat Ratio 18.4 RATIO (10-20); Calcium,Total 8.9 mg/dL (7.6-11.0); Carbon Dioxide 20.6 mmol/L (21.0-32.0); Chloride 105 mmol/L (98-108); Estimated Creatinine Clearance 59.73 ml/min (50-250); Glucose 114 mg/dL (70-99); Magnesium 2.2 mg/dL (1.5-2.2); Potassium 3.7 mmol/L (3.3-5.1); Pro- Brain NATRIURETIC PEPTIDE 1961 pg/mL (<=900)
[2025-01-16 03:58] LABS: Troponin T High Sensitivity 328 ng/L (<=14)
[2025-01-16] MEDS: 0.9% Saline Lock 10 ML Syringe IV ×2 (04:18→08:11)
[2025-01-16 04:20] LABS: Allen Test Positive; Base Excess -4 mmol/L (-2 to +2); FI02 7.0; PO2 66 mmHG (75-100); SITE R Radial; SO2 93 % (94-98)
[2025-01-16 05:41] LABS: Troponin T High Sens 2 HR 394 ng/L (<=14)
[2025-01-16 07:48] LABS: Troponin T High Sens 4 HR 402 ng/L (<=14)
[2025-01-16] MEDS: buPROPion (SR) 150 MG Tablet.SA PO ×2 (08:22→21:49)
[2025-01-16] MEDS: Pantoprazole Sodium 40 MG in 0.9% Normal Saline (100mL MB+) 100 ML 330 MG IV ×2 (09:15→21:50)
[2025-01-16] MEDS: Ceftriaxone 2 GM in 0.9% Normal Saline (50mL MB+) 50 ML IV (10:20)
--- NOTE | 2025-01-16 15:40 | CASEMGMT ---
Discharge Planning ANGIE referral sent via [facility] to I. Cleopatra Florian DC Planning Asst.
--- NOTE | 2025-01-16 16:00 | CASEMGMT ---
[facility] reports that they are able to resume care with ANGIE date TBD contingent on pt's DC date. ORDER FILLER CM notified.
--- NOTE | 2025-01-16 16:22 | PN.HOSP_ITS ---
Reason for Visit
--- NOTE | 2025-01-16 16:22 | PCM.PN.HOSP ---
Reason for Visit Chief Complaint: Shortness of breath and fatigue Subjective Subjective Patient was seen and examined today, it is planned she will undergo an EGD tomorrow. Patient had a chest CTA performed today which showed no evidence of acute pulmonary embolus. Venous Doppler of the lower extremity showed acute deep vein thrombosis in the right gastrocnemius vein and acute deep vein thrombus in the left posterior tibial vein peroneal vein and soleus vein. There was also acute superficial vein thrombosis noted in the left great saphenous vein. Objective Data Objective Data Vital Signs: Vital Signs Temp Pulse Resp BP Pulse Ox O2 Del Method O2 Flow Rate 98.0 F 93 18 117/64 93 Nasal Cannula 2 01/16/25 15:27 01/16/25 15:27 01/16/25 15:27 01/16/25 15:27 01/16/25 15:01/16/25 15:27 01/16/25 15:27 Oxygen Flow Rate (L/min) 2 Oxygen Delivery Method Nasal Cannula Weight: 68.4 kg Body Mass Index (BMI) 26.6 Intake & Output: Intake and Output for Last 24 Hours 01/14/25 01/15/25 01/16/25 23:59 23:59 23:59 Intake Total 280 / 280 810 / 810 Balance 280 / 280 810 / 810 Lab / Micro Data 01/16/25 03:15 01/16/25 03:15 Labs: Laboratory Results - last 24 hr 01/15/25 16:24: Troponin T Hi Sens 2 Hr 27 H 01/15/25 17:20: Blood Type A POSITIVE, Antibody Screen NEGATIVE 01/15/25 18:50: Troponin T Hi Sens 4Hr 29 H 01/15/25 22:22: Hgb 7.4 L, Hct 24.0 L, Random Vancomycin 13.2 01/16/25 03:15: WBC 13.2 H, RBC 2.84 L, Hgb 7.9 L, Hct 25.1 L, MCV 88.4, MCH 27.8, MCHC 31.5 L, RDW Std Deviation 48.2 H, RDW Coeff of Millie 15.1 H, Plt Count 206, MPV 10.3, Immature Gran % (Auto) 0.500, Neut % (Auto) 70.5 H, Lymph % (Auto) 10.4 L, [place] % (Auto) 7.9, Eos % (Auto) 9.7 H, Baso % (Auto) 1.0, Absolute Neuts (auto) 9.3 H, Absolute Lymphs (auto) 1.38, Nucleated RBC % 0, Sodium 138, Potassium 3.7, Chloride 105, Carbon Dioxide 20.6 L, Anion Gap 12, BUN 16, Creatinine 0.86, Estim Creat Clear Calc 59.73, Est GFR (MDRD) Non-Af 74, BUN/Creatinine Ratio 18.4, Glucose 114 H, Calcium 8.9, Phosphorus 3.4, Magnesium 2.2, Troponin T High Sens 328 H* D, NT pro BNP II 1961 H 01/16/25 05:15: Troponin T Hi Sens 2 Hr 394 H* 01/16/25 06:55: Troponin T Hi Sens 4Hr 402 H* Micro: Microbiology 01/15/25 15:10 Stool Stool Occult Blood (RUTH) - Final Occult Blood Positive ABG Data ABG results: ABG 01/16/25 04:16 Specimen Type ART Sample Site R Radial pH 7.40 Bicarbonate Actual 20.8 L Total CO2 22 Base Excess -4 L O2 Saturation 93 L O2 % 7.0 ABG pCO2 33.5 L ABG pO2 66 L José Miguel Test Positive O2 Delivery Device Cannula Vent Mode Not entered Radiography Diagnostic Testing: Radiology Impression Venous Doppler Study 01/15/25 20:07 Interpretation Summary Acute deep vein thrombosis is noted in the right gastrocnemius vein. Acute deep vein thrombosis is noted in the left posterior tibial vein, peroneal vein, soleus vein. Acute superficial vein thrombosis noted in the left great saphenous vein. Ordering Physician: Mitch Martinez Referring Physician: Marsha Mendez Performed By: Constance Villaseñor RVT Chest CTA 01/16/25 03:25 IMPRESSION: Minimal residual segmental branches pulmonary emboli are noted in the right, left upper lobe and bilateral lower lobes, probably chronic. No definite CT evidence of an acute pulmonary embolus. No CT evidence of cardiac strain. Unchanged mediastinal and hilar lymphadenopathy with the largest lymph node measuring 1.8 cm. Well-defined hypodense right thyroid lobe nodule is noted measuring 1.4 cm. Minimal right pleural effusion. Mild left pleural effusion. No significant coronary artery calcifications. Nodular consolidation in the left lower lobe measuring 2.8 x 2.7 cm. Follow-up is suggested. Interval appearance of interstitial pulmonary edema. Interval appearance of mild alveolar pulmonary edema. Bilateral basilar consolidations of the lower lobes. Mild diffuse spondylosis. Reading Location: [place] [id number] Physical Exam Const alert, oriented x3 and no apparent distress General Appearance: cooperative, well kempt and well developed Orientation / Consciousness: awake, oriented to person, oriented to place and oriented to time HEENT normocephalic and moist oral mucous membranes Eyes PERRL, EOMs intact bilaterally and conjunctivae normal Neck supple, no JVD, thyroid normal and no carotid bruits General: trachea midline Resp normal respiratory effort, no retractions and no use of accessory muscles Resp Narrative: Decreased breath sounds were noted bilaterally Auscultation: Negative for rales, rhonchi or wheezes Cardio regular rate, regular rhythm, S1 normal heart sound, S2 normal heart sound, no murmurs, no rub and no gallops GI normal to inspection, nondistended, normoactive bowel sounds, soft to palpation, non-tender and non-distended Extremity no clubbing, cyanosis or edema Skin no rashes or lesions noted General Skin Exam: no breakdown Neuro oriented x3, CN's II-XII intact bilaterally, moves all extremities, no focal motor deficits and no sensory deficits noted Sensorium / Orientation: awake and alert Speech: speech normal Psych affect normal Assessment & Plan Assessment/Plan (1) GI (gastrointestinal bleed): PLAN: Plan 1. Upper GI bleed-etiology unclear-patient will continue on IV Protonix, she will undergo an EGD tomorrow #2 acute on chronic diastolic congestive heart failure-patient is on p.o. Lasix at this time-I will increase the dose to 40 mg twice daily, she requires 2 L of oxygen, she appears comfortable at rest on 2 L. #3 lower extremity VTE-patient will need to be seen by vascular surgery for insertion of a vena caval filter, her CTA on admission did not show evidence of PE however. #4 endocarditis-present on admission-patient is being treated for endocarditis and is on IV ceftriaxone and vancomycin. #5 hypoxia secondary to #2-pulse ox will be monitored #6 anemia secondary to #1-patient's hemoglobin was 7.9 this morning, CBC will be monitored #7 chronic anxiety and depression-patient will remain on her home medications Total clinical time spent by myself addressing patient's medical issues, reviewing all of her data, and collaborating with patient's care team: 35 minutes Charges/Coding Visit Charges Inpatient E&M: 59759 Subs Hosp L2
--- NOTE | 2025-01-16 18:00 | EX.PCM.CON.G ---
HPI Consult Data Date of Consult: 01/16/25 HPI Narrative Reason for Consultation: Anemia HPI Narrative: MARY AGUILERA, is a ?64-year-old woman with a complex medical history presenting with worsening shortness of breath and concern for anemia. She was recently discharged from the hospital 5 days ago following an admission for heart failure with preserved ejection fraction secondary to endocarditis. During that hospitalization, she was diuresed successfully and weaned off supplemental oxygen. At discharge, she was started on IV ceftriaxone and IV vancomycin for a 4 to 6-week course to treat her endocarditis. Her hemoglobin during that stay was in the range of 10.5?11.3. The patient now reports progressive shortness of breath since her discharge. She has noticed a significant decline in her Hgb to 8.0 g/dL, and then to 7.4 g/dL. She denies any gross signs of bleeding, such as bloody or dark, tarry stools, blood in her urine, or easy bruising. [facility] Medical History Wears glasses Arthritis Shortness of breath on exertion Leg cramps Change in bowel habit Generalized abdominal pain Heart murmur Dyspnea on exertion Post-menopausal High cholesterol Back pain Syncope Gastric reflux Smoker BiPAP (biphasic positive airway pressure) dependence Asthma History of echocardiogram History of stress test Cardiology follow-up encounter Hyperlipidemia Skin cancer Anxiety and depression Home Medications ?Medication ?Instructions ?Recorded ?Last Taken ?Type albuterol sulfate 90 mcg/actuation 2 puff inhalation Q6H PRN 04/15/23 Unknown History aerosol inhaler shortness of breath or wheezing bupropion HCl 150 mg tablet,12 hr 150 mg PO BID depression 06/23/24 01/15/25 History sustained-release (Wellbutrin SR) escitalopram oxalate 10 mg tablet 10 mg PO DAILY depression 06/23/24 01/15/25 History (Lexapro) lactobacillus combination no.9 4 4,000 mmu cells PO QDAY supplement 06/23/24 01/14/25 History billion cell capsule (Adult 50 Plus Probiotic) multivitamin (Daily Multi-Vitamin 1 tab PO DAILY vitamin 07/06/24 01/14/25 History tablet) cholecalciferol (vitamin D3) 125 125 mcg PO QDAY supplement 07/20/24 01/15/25 History mcg (5,000 unit) capsule Oral appliance #1 ea 08/16/24 Unknown Rx escitalopram oxalate 20 mg tablet 20 mg PO QDAY depression 10/06/24 01/15/25 History (Lexapro) rosuvastatin 20 mg tablet 20 mg PO DAILY hyperlipidemia 10/06/24 01/15/25 History apixaban 5 mg tablet (Eliquis) 5 mg PO BID 30 days #60 tabs 01/09/25 01/15/25 Rx ceftriaxone 1 gram/50 mL in 2 g (100 mL) IV Q24 37 days #37 ea 01/09/25 01/15/25 Rx dextrose (iso-osmot) intravenous piggyback furosemide 20 mg tablet (Lasix) 20 mg PO QODAY 90 days #45 tabs 01/09/25 01/14/25 Rx vancomycin 750 mg intravenous 750 mg IV Q12H 37 days #74 ea 01/09/25 01/15/25 Rx solution acetaminophen 500 mg capsule 1,000 mg PO Q6H PRN pain 01/15/25 01/15/25 History Allergy/AdvReac Type Severity Reaction Status Date / Time Penicillins Allergy Intermediate Hives Verified 01/15/25 13:58 Family History Mother Breast cancer Hypertension Aunt Breast cancer Brother Hypertension Father Atrial fibrillation Surgical History History of esophagogastroduodenoscopy (EGD) Hx of colonoscopy Cyst Removal from breast History of LAV Hx of appendectomy Social History Smoking Status: Former smoker quit date: 11/02/24 pack-years: 20 Tobacco: How many years used: 40 alcohol intake: never substance use type: does not use caffeine: Yes what type of physical activity do you participate in: walking frequency: 3-4 times per week seatbelt use: always do you feel safe at home: Yes additional social history: , Just moved back from the [facility] Physical Exam Const alert, oriented x3 and no apparent distress General Appearance: cooperative, well kempt and well developed Orientation / Consciousness: awake, oriented to person, oriented to place and oriented to time HEENT normocephalic and moist oral mucous membranes Eyes PERRL, EOMs intact bilaterally and conjunctivae normal Neck supple, no JVD, thyroid normal and no carotid bruits General: trachea midline Resp normal respiratory effort, no retractions and no use of accessory muscles Resp Narrative: Decreased breath sounds were noted bilaterally Auscultation: Negative for rales, rhonchi or wheezes Cardio regular rate, regular rhythm, S1 normal heart sound, S2 normal heart sound, no murmurs, no rub and no gallops GI normal to inspection, nondistended, normoactive bowel sounds, soft to palpation, non-tender and non-distended Extremity no clubbing, cyanosis or edema Skin no rashes or lesions noted General Skin Exam: no breakdown Neuro oriented x3, CN's II-XII intact bilaterally, moves all extremities, no focal motor deficits and no sensory deficits noted Sensorium / Orientation: awake and alert Speech: speech normal Psych affect normal Lab / Micro Data 01/16/25 03:15 01/16/25 03:15 Labs: Laboratory Results - last 24 hr 01/15/25 17:20: Blood Type A POSITIVE, Antibody Screen NEGATIVE 01/15/25 18:50: Troponin T Hi Sens 4Hr 29 H 01/15/25 22:22: Hgb 7.4 L, Hct 24.0 L, Random Vancomycin 13.2 01/16/25 03:15: WBC 13.2 H, RBC 2.84 L, Hgb 7.9 L, Hct 25.1 L, MCV 88.4, MCH 27.8, MCHC 31.5 L, RDW Std Deviation 48.2 H, RDW Coeff of Millie 15.1 H, Plt Count 206, MPV 10.3, Immature Gran % (Auto) 0.500, Neut % (Auto) 70.5 H, Lymph % (Auto) 10.4 L, [place] % (Auto) 7.9, Eos % (Auto) 9.7 H, Baso % (Auto) 1.0, Absolute Neuts (auto) 9.3 H, Absolute Lymphs (auto) 1.38, Nucleated RBC % 0, Sodium 138, Potassium 3.7, Chloride 105, Carbon Dioxide 20.6 L, Anion Gap 12, BUN 16, Creatinine 0.86, Estim Creat Clear Calc 59.73, Est GFR (MDRD) Non-Af 74, BUN/Creatinine Ratio 18.4, Glucose 114 H, Calcium 8.9, Phosphorus 3.4, Magnesium 2.2, Troponin T High Sens 328 H* D, NT pro BNP II 1961 H 01/16/25 05:15: Troponin T Hi Sens 2 Hr 394 H* 01/16/25 06:55: Troponin T Hi Sens 4Hr 402 H* Micro: Microbiology 01/15/25 15:10 Stool Stool Occult Blood (RUTH) - Final Occult Blood Positive ABG Data ABG results: ABG 01/16/25 04:16 Specimen Type ART Sample Site R Radial pH 7.40 Bicarbonate Actual 20.8 L Total CO2 22 Base Excess -4 L O2 Saturation 93 L O2 % 7.0 ABG pCO2 33.5 L ABG pO2 66 L José Miguel Test Positive O2 Delivery Device Cannula Vent Mode Not entered Imaging Radiology Impression Venous Doppler Study 01/15/25 20:07 Interpretation Summary Acute deep vein thrombosis is noted in the right gastrocnemius vein. Acute deep vein thrombosis is noted in the left posterior tibial vein, peroneal vein, soleus vein. Acute superficial vein thrombosis noted in the left great saphenous vein. Ordering Physician: Mitch Martinez Referring Physician: Marsha Mendez Performed By: Constance Villaseñor RVT Chest CTA 01/16/25 03:25 IMPRESSION: Minimal residual segmental branches pulmonary emboli are noted in the right, left upper lobe and bilateral lower lobes, probably chronic. No definite CT evidence of an acute pulmonary embolus. No CT evidence of cardiac strain. Unchanged mediastinal and hilar lymphadenopathy with the largest lymph node measuring 1.8 cm. Well-defined hypodense right thyroid lobe nodule is noted measuring 1.4 cm. Minimal right pleural effusion. Mild left pleural effusion. No significant coronary artery calcifications. Nodular consolidation in the left lower lobe measuring 2.8 x 2.7 cm. Follow-up is suggested. Interval appearance of interstitial pulmonary edema. Interval appearance of mild alveolar pulmonary edema. Bilateral basilar consolidations of the lower lobes. Mild diffuse spondylosis. Reading Location: [place] [id number] Assessment & Plan Assessment/Plan (1) GI (gastrointestinal bleed): (2) Anemia due to acute blood loss: (3) Acute exacerbation of CHF (congestive heart failure): (4) Endocarditis: (5) Anticoagulant long-term use: PLAN: Laboratory studies: Initial (prior to transfusion):?Complete blood count with differential, reticulocyte count, peripheral smear, lactate dehydrogenase , haptoglobin, total and indirect bilirubin, and direct Jasmin test . To rule out hemolysis:?Given the rapid drop in Hgb and use of IV ceftriaxone, drug-induced hemolytic anemia is a bergman consideration. Anemia workup (prior to transfusion):?Serum iron, total iron-binding capacity , ferritin, vitamin B12, and folate levels are needed to evaluate for nutritional deficiencies. Imaging: Repeat CTA chest:?Re-evaluate for pulmonary embolism (PE), which could contribute to shortness of breath and cause hemoptysis, leading to anemia. Repeat echocardiogram:?Assess for worsening heart failure, valvular dysfunction, or persistent vegetations associated with endocarditis. Assessment 64-year-old woman with a history of COPD, obstructive sleep apnea (MARYANN) on BiPAP, recently treated endocarditis with HFpEF, and a lung nodule under investigation. The patient has a significant, acute drop in hemoglobin following discharge from endocarditis treatment. The primary concern is identifying the cause of the worsening anemia and associated shortness of breath. Differential diagnosis: Bleeding:?Eliquis is a direct oral anticoagulant that increases the risk of bleeding, particularly from the gastrointestinal tract. The endoscopy 5 months ago does not rule out a new or missed bleeding source. The lung nodule could also be a source of bleeding. Also her hemoglobin was not that low during her previous endoscopic evaluation. Drug-induced hemolytic anemia:?Ceftriaxone can cause immune-mediated hemolysis, leading to a rapid decline in Hgb. This is a serious, but reversible, condition that requires immediate consideration and investigation. Anemia of chronic disease/inflammation:?The patient's endocarditis and underlying lung nodule are potential sources of chronic inflammation, which can suppress red blood cell production. Myelosuppression:?Vancomycin and other medications can potentially suppress bone marrow production of red blood cells. Possible worsening HFpEF:?The patient's returning shortness of breath may be a recurrence of her HFpEF, but the severe anemia is also a likely contributing factor. Possible lung cancer:?The undiagnosed lung nodule and mediastinal lymphadenopathy raise concern for malignancy, which can cause anemia through several mechanisms, including bone marrow infiltration, bleeding from the tumor, and inflammation. She is scheduled for repeat imaging in 3 months as per pulmonary. It is highly suspicious that she has the lung nodule along with possible mediastinal lymphadenopathy and new onset pulmonary embolisms that this is an underlying malignancy. Plan: Management: Transfusion:?Transfuse packed red blood cells to stabilize the patient's Hgb, targeting a Hgb of >8 g/dL given her cardiopulmonary disease. Hold Eliquis:?Temporarily hold Eliquis until a source of bleeding is ruled out and the anemia is stabilized. Weigh the risk of bleeding against the patient's risk of thromboembolic events given her history of PE. Hold Ceftriaxone:?Consider holding ceftriaxone temporarily while investigating for drug-induced hemolytic anemia, especially if hemolysis is suspected. Diagnostic/therapeutic workup: Labs:?Order a CBC with differential, reticulocyte count, peripheral smear, LDH, haptoglobin, total and indirect bilirubin, and a direct Jasmin test (JESSICA). EGD: Patient will undergo a push enteroscopy tomorrow to hopefully look at the entire duodenum. N.p.o. past midnight Charges/Coding Visit Charges Inpatient E&M: 44451 Init Hosp L3
[2025-01-16 21:18] LABS: Hematocrit 23.1 % (37-47); Hemoglobin 7.4 g/dL (12.0-15.0)
[2025-01-17] VITALS (13 sets, daily range): BP systolic 79–105; BP diastolic 48–65; PULSE 86–98; RESP 16–18; TEMP 36.1–36.9; O2SAT 92–100
[2025-01-17 05:55] LABS: Hematocrit 23.9 % (37-47); Hemoglobin 7.6 g/dL (12.0-15.0); Immature Granulocytes Count 0.070 X10^3/uL (0.0-0.0); Mean Corp Hgb Conc 31.8 g/dL (32-36); Mean Corpuscular Volume 87.5 fL (81-99); Mean Platelet Vol. 10.8 fl (6.2-12.0); NRBC Flagged by Analyzer 0 % (0-5); Platelet Count 216 K/mm3 (150-450); RBC Distribution Width CV 15.2 % (11.6-14.6); RBC Distribution Width SD 48.0 fl (35.1-43.9); Red Blood Count 2.73 M/mm3 (4.2-5.4); White Blood Count 12.6 K/mm3 (4.4-11.0)
[2025-01-17 06:21] LABS: Anion Gap 11 (5-15); BUN 10 mg/dL (4-19); BUN/Creat Ratio 12.4 RATIO (10-20); Calcium,Total 8.7 mg/dL (7.6-11.0); Carbon Dioxide 24.5 mmol/L (21.0-32.0); Chloride 105 mmol/L (98-108); Estimated Creatinine Clearance 64.21 ml/min (50-250); Glucose 118 mg/dL (70-99); Potassium 3.4 mmol/L (3.3-5.1)
[2025-01-17] MEDS: buPROPion (SR) 150 MG Tablet.SA PO ×2 (08:22→21:44)
[2025-01-17] MEDS: 0.9% Saline Lock 10 ML Syringe IV (08:25)
[2025-01-17] MEDS: Pantoprazole Sodium 40 MG in 0.9% Normal Saline (100mL MB+) 100 ML 330 MG IV (08:39)
[2025-01-17] MEDS: Ceftriaxone 2 GM in 0.9% Normal Saline (50mL MB+) 50 ML IV (09:50)
--- NOTE | 2025-01-17 11:54 | EX.PCM.CON.S ---
Assessment & Plan Assessment/Plan (1) Anemia due to acute blood loss: (2) DVT (deep venous thrombosis): PLAN: Plan We discussed the IVC filter indications as well as procedure risks, benefits, and recovery. She would be agreeable to proceed if indicated. If source of bleeding is identified and able to be adequately treated on endoscopy then may be reasonable to restart anticoagulation and filter may not be necessary. If no source of bleeding is identified then would recommend IVC filter placement as anticoagulation would need to continue to be held for further investigation. Would plan for filter placement on if needed. HPI Consult Data Date of Consult: 01/17/25 HPI Narrative HPI Narrative: MARY AGUILERA, is a 64 F who presented to the [facility] ER with increased fatigue and SOB and was admitted secondary to acute anemia with concern for GI source. She has been on Eliquis due to PE diagnosed in October following shortly preceding lung biopsy of suspicious nodule. She has had repeat Chest CTA without new acute PE. She had lower extremity doppler which did demonstrate bilateral infrapopliteal DVTs. We are consulted for consideration of IVC filter. Eliquis is currently held. She reports she was in her usual state of health until October when she had the initial PE with no preceding injury, illness, travel, or surgery. PE was identified after she had hemoptysis following her lung nodule biopsy but in review of records she had reported some SOB even a couple weeks prior. The lung biopsy was reportedly negative for malignancy. Since then, she has had a few ER visits/hospitalizations due to new CHF and endocarditis. Unfortunately subsequent Chest CTA has reported further growth of the nodule. She reports no personal or family history of clotting disorders. She is scheduled for endoscopy later today to evaluate for GI source of bleeding. [facility] Medical History Wears glasses Arthritis Shortness of breath on exertion Leg cramps Change in bowel habit Generalized abdominal pain Heart murmur Dyspnea on exertion Post-menopausal High cholesterol Back pain Syncope Gastric reflux Smoker BiPAP (biphasic positive airway pressure) dependence Asthma History of echocardiogram History of stress test Cardiology follow-up encounter Hyperlipidemia Skin cancer Anxiety and depression Home Medications ?Medication ?Instructions ?Recorded ?Last Taken ?Type albuterol sulfate 90 mcg/actuation 2 puff inhalation Q6H PRN 04/15/23 Unknown History aerosol inhaler shortness of breath or wheezing bupropion HCl 150 mg tablet,12 hr 150 mg PO BID depression 06/23/24 01/15/25 History sustained-release (Wellbutrin SR) escitalopram oxalate 10 mg tablet 10 mg PO DAILY depression 06/23/24 01/15/25 History (Lexapro) lactobacillus combination no.9 4 4,000 mmu cells PO QDAY supplement 06/23/24 01/14/25 History billion cell capsule (Adult 50 Plus Probiotic) multivitamin (Daily Multi-Vitamin 1 tab PO DAILY vitamin 07/06/24 01/14/25 History tablet) cholecalciferol (vitamin D3) 125 125 mcg PO QDAY supplement 07/20/24 01/15/25 History mcg (5,000 unit) capsule Oral appliance #1 ea 08/16/24 Unknown Rx escitalopram oxalate 20 mg tablet 20 mg PO QDAY depression 10/06/24 01/15/25 History (Lexapro) rosuvastatin 20 mg tablet 20 mg PO DAILY hyperlipidemia 10/06/24 01/15/25 History apixaban 5 mg tablet (Eliquis) 5 mg PO BID 30 days #60 tabs 01/09/25 01/15/25 Rx ceftriaxone 1 gram/50 mL in 2 g (100 mL) IV Q24 37 days #37 ea 01/09/25 01/15/25 Rx dextrose (iso-osmot) intravenous piggyback furosemide 20 mg tablet (Lasix) 20 mg PO QODAY 90 days #45 tabs 01/09/25 01/14/25 Rx vancomycin 750 mg intravenous 750 mg IV Q12H 37 days #74 ea 01/09/25 01/15/25 Rx solution acetaminophen 500 mg capsule 1,000 mg PO Q6H PRN pain 01/15/25 01/15/25 History Allergy/AdvReac Type Severity Reaction Status Date / Time Penicillins Allergy Intermediate Hives Verified 01/15/25 13:58 Family History Mother Breast cancer Hypertension Aunt Breast cancer Brother Hypertension Father Atrial fibrillation Surgical History History of esophagogastroduodenoscopy (EGD) Hx of colonoscopy Cyst Removal from breast History of LAVH Hx of appendectomy Social History Smoking Status: Former smoker quit date: 11/02/24 pack-years: 20 Tobacco: How many years used: 40 alcohol intake: never substance use type: does not use caffeine: Yes what type of physical activity do you participate in: walking frequency: 3-4 times per week seatbelt use: always do you feel safe at home: Yes additional social history: , Just moved back from the [facility] Physical Exam Const alert, oriented x3 and no apparent distress General Appearance: cooperative and comfortable HEENT normocephalic, head/scalp atraumatic, hearing grossly normal bilaterally, external ears normal and external nose normal Eyes EOMs intact bilaterally General Eye: normal appearance of both eyes Neck General: normal visual inspection and trachea midline Resp normal respiratory effort Effort and Inspection: able to speak in complete sentences; Negative for labored, grunting or stridor Cardio regular rate Neuro oriented x3 and moves all extremities Speech: speech normal Psych mental status grossly normal Appearance: grossly normal Attitude: calm and engaged Activity / Motor Behavior: appropriate eye contact Speech: normal speech Lab / Micro Data 01/17/25 05:08 01/17/25 05:08 Labs: Laboratory Results - last 24 hr 01/16/25 09:00: Hgb 7.4 L, Hct 23.1 L 01/17/25 05:08: WBC 12.6 H, RBC 2.73 L, Hgb 7.6 L, Hct 23.9 L, MCV 87.5, MCH 27.8, MCHC 31.8 L, RDW Std Deviation 48.0 H, RDW Coeff of Millie 15.2 H, Plt Count 216, MPV 10.8, Immature Gran % (Auto) 0.600, Neut % (Auto) 69.2, Lymph % (Auto) 11.0 L, Pratt % (Auto) 9.2, Eos % (Auto) 9.0 H, Baso % (Auto) 1.0, Absolute Neuts (auto) 8.8 H, Absolute Lymphs (auto) 1.39, Nucleated RBC % 0, Sodium 140, Potassium 3.4, Chloride 105, Carbon Dioxide 24.5, Anion Gap 11, BUN 10, Creatinine 0.80, Estim Creat Clear Calc 64.21, Est GFR (MDRD) Non-Af 81, BUN/Creatinine Ratio 12.4, Glucose 118 H, Calcium 8.7 Imaging Radiology Impression Venous Doppler Study 01/15/25 20:07 Interpretation Summary Acute deep vein thrombosis is noted in the right gastrocnemius vein. Acute deep vein thrombosis is noted in the left posterior tibial vein, peroneal vein, soleus vein. Acute superficial vein thrombosis noted in the left great saphenous vein. Ordering Physician: Mitch Martinez Referring Physician: Marsha Mendez Performed By: Constance Villaseñor RVT Charges/Coding Visit Charges Inpatient E&M: 06799 Init Hosp L1
[2025-01-17 12:05] LABS: Vancomycin, Trough Level 20.3 ug/mL (5.0-15.0)
--- NOTE | 2025-01-17 12:18 | PCM.RX.CS ---
Consult Antibiotic Management Pharmacy has been consulted to manage selected antibiotic: Vancomycin Type of Intervention Type of Consult: Follow-up Suspected Infection Suspected Infection: Endocarditis Prior Doses of Antibiotics Prior Doses of Antibiotics Received/Current Regimen: 01/16/25 @ 0012 Vancomycin 1000mg 01/16/25 @ 1156 Vancomycin 1000mg 01/16/25 @ 2346 Vancomycin 1000mg Labs Labs: Sodium 140 mmol/L (133-145) 01/17/25 05:08 Potassium 3.4 mmol/L (3.3-5.1) 01/17/25 05:08 Chloride 105 mmol/L (98-108) 01/17/25 05:08 Carbon Dioxide 24.5 mmol/L (21.0-32.0) 01/17/25 05:08 Anion Gap 11 (5-15) 01/17/25 05:08 BUN 10 mg/dL (4-19) 01/17/25 05:08 Creatinine 0.80 mg/dL (0.70-1.20) 01/17/25 05:08 Est GFR (MDRD) Non-Af 81 (>60) 01/17/25 05:08 BUN/Creatinine Ratio 12.4 RATIO (10-20) 01/17/25 05:08 Glucose 118 mg/dL (70-99) H 01/17/25 05:08 Vancomycin Trough 20.3 ug/mL (5.0-15.0) H 01/17/25 11:06 Random Vancomycin 13.2 ug/mL (0.0-15.0) 01/15/25 22:22 Microbiology Microbiology: Microbiology 01/15/25 15:10 Stool Stool Occult Blood (RUTH) - Final Occult Blood Positive Dosing Weight Weight used for dosin kg Goal Trough Goal Trough: 15-20 mcg/mL Pharmacy Plan for Drug Dosing Pharmacy Plan for Drug Dosing: Decrease dose of Vancomycin to 750ng every 12 hours starting 01/17/25 @ 1600 Pharmacy Service will continue to monitor and adjust dosing as required. Follow-Up Labs Follow-Up Labs: Trough: Vancomycin Date/Time Labs Ordered Labs to be done on [date and time ordered]: 01/19/25 @ 9334
--- NOTE | 2025-01-17 13:44 | PCM.PRE.AN2 ---
ASA Classification* ASA Classification ASA Classification: 3 and E Assessment & Plan Anesthesia* Anesthesia Assessment Anesthesia Assessment: Discussed sedation and/or anesthesia options, risks, benefits, and alternatives with patient/parents/legal guardian/POA. Questions invited. The patient/parents/legal guardian/POA seems to understand and agrees to proceed with anesthesia plan. Reviewed the physical assessment, medical history, allergy history and patient home medications list prior to surgery/procedure/anesthetic and documented any changes. Performed airway and anesthesia risk assessments. Anesthesia Type Anesthesia Type: MAC History Source History Obtained from:: Patient and Chart Anesthesia Focused Assessment* Temperature: 98.2 F Pulse Rate: 95 Blood Pressure: 93/61 Respiratory Rate: 18 Pulse Ox: 98 Oxygen Delivery Method: Nasal Cannula Oxygen Flow Rate (L/min): 5 Airway Assessment Mouth opens: >3 cm Mallampati Score: II Teeth Condition: Intact Neck Range of motion (ROM): Full ROM Labs Anesthesia Preop lab: CBC WBC, (4.4-11.0) 12.6 K/mm3 H Today, 05:08 RBC, (4.2-5.4) 2.73 M/mm3 L Today, 05:08 Hgb, (12.0-15.0) 7.6 g/dL L Today, 05:08 Hct, (37-47) 23.9 % L Today, 05:08 Plt Count, (150-450) 216 K/mm3 Today, 05:08 CHEMISTRY Potassium, (3.3-5.1) 3.4 mmol/L Today, 05:08 Sodium, (133-145) 140 mmol/L Today, 05:08 Magnesium, (1.5-2.2) 2.2 mg/dL 01/16/25, 03:15 Phosphorus, (2.7-4.5) 3.4 mg/dL 01/16/25, 03:15 BUN, (4-19) 10 mg/dL Today, 05:08 Creatinine, (0.70-1.20) 0.80 mg/dL Today, 05:08 Glucose, (70-99) 118 mg/dL H Today, 05:08 TSH, (0.300-4.200) 0.683 uIU/mL 07/19/24, 09:15 COAG PT, (11.7-14.9) 14.5 SECONDS 11/03/24, 14:00 Pre-Assessment Diagnosis/Proposed Procedure Planned Operative Procedure(s): EGD Anesthesia History Anesthesia History - shake maker: Anesthesia History - shake maker Hx Hospitalization No 10/06/24 13:46 Any Problems With Anesthesia No 01/17/25 08:56 Cholinesterase deficiency No 01/17/25 08:56 You/Your Family Experience No 01/17/25 08:56 fever (hyperthermia) with Relationship Recent Exposure to Contagious No 01/17/25 08:56 Disease Does patient have nerve No 01/17/25 08:56 stimulator Patient instructed to have device shut off --Does patient have Pacemaker No 01/17/25 08:48 or ICD? When Was Last Pacemaker Check QUESTION #4 FULL TEXT: You/Your Family Experience fever (hyperthermia) with Anesthesia Last Oral Intake Last Oral intake: Last Oral Intake NPO since 00:01 01/17/25 08:48 Meds taken in AM with sips of Yes 01/17/25 08:48 water? Meds patient instructed to see mar 01/17/25 08:48 take am of surgery PONV PONV - shake maker: PONV - shake maker Female HX of Motion Sickness HX of N/V After Surgery Non-Smoker Duration of Surgery greater than 60 minutes Number of Risk Factors PONV Score Height & Weight Height & Weight: Anesthesia: Height & Weight Height 5 ft 3 in 01/16/25 10:01 Weight: 68.4 kg 01/17/25 08:48 Body Mass Index (BMI) 26.6 01/16/25 08:31 Respiratory Assessment Respiratory Assessment - shake maker: Respiratory Tract Infection Hx - shake maker Hx Respiratory Tract Infection Yes: pna 1 mos ago per pt 01/17/25 08:56 STOP Sleep Apnea STOP Sleep Apnea - shake maker: STOP Sleep Apnea - shake maker Hx Hypertension No 01/15/25 20:08 Hx Sleep Apnea Yes 01/15/25 20:08 CPAP No 01/15/25 20:08 BIPAP Yes 01/15/25 20:08 Do you snore loudly (louder than talking or can be heard Do you often feel tired/ fatigued/ sleepy during daytime? Has anyone observed you stop breathing during sleep? STOP Results Positive 01/15/25 20:08 QUESTION #5 FULL TEXT : Do you snore loudly (louder than talking or can be heard through closed doors)? 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 Specify any problems Hx of Preganancy in last 3 No 01/15/25 20:08 Months Nurse Filling Out Transfusion MGROVE 01/15/25 20:08 & Questions: Date: 01/15/25 01/15/25 20:08 Time: 20:17 01/15/25 20:08 Patient unable to answer at this time (ie. confused, unrespo /Reproduction History /Reproductive History - shake maker: /Reproductive Hx- shake maker Hx Now No 01/16/25 08:35 Gestational Age (in weeks): EDC: Hx Hx Para Hx Section SAB No 01/16/25 08:35 Active Medications Active Medications: Current Medications Generic Name Dose Route Start Last Admin Trade Name Freq PRN Reason Stop Dose Admin Acetaminophen 650 mg 01/15/25 20:07 01/17/25 08:35 Acetaminophen 325 Mg Tablet PO 650 mg Q6H PRN PRN Administration Pain 1-10 Or Fever>100.7 Albuterol Sulfate 2.5 mg 01/15/25 20:07 Albuterol 2.5 Mg/3 Ml Vial.Neb. INHALATION Q4H PRN PRN shortness of breath/wheezing Atorvastatin Calcium 40 mg 01/15/25 22:00 01/16/25 21:49 Atorvastatin Calcium 40 Mg Tablet PO 40 mg QHS EFFIE Administration Bupropion HCl 150 mg 01/15/25 22:00 01/17/25 08:22 Bupropion (Sr) 150 Mg Tablet.Sa PO 150 mg BID EFFIE Administration Cholecalciferol 125 mcg 01/16/25 10:00 01/17/25 08:21 Cholecalciferol (Vit D3) 125 Mcg Capsule (5,000 Units) PO Not Given DAILY EFFIE Enoxaparin Sodium 40 mg 01/16/25 17:10 01/17/25 12:08 Enoxaparin 40 Mg/0.4 Ml Syringe SC Not Given DAILY EFFIE Escitalopram Oxalate 30 mg 01/16/25 10:00 01/17/25 08:22 Escitalopram Oxalate 10 Mg Tablet PO 30 mg DAILY EFFIE Administration Furosemide 40 mg 01/16/25 22:00 01/17/25 08:35 Furosemide 40 Mg Tablet PO 40 mg BID EFFIE Administration Protocol Pantoprazole Sodium 40 mg/ 100 mls @ 330 mls/hr 01/16/25 10:00 01/17/25 09:51 Sodium Chloride IV Infused Q12 EFFIE Infusion Sodium Chloride 250 mls @ 15 mls/hr 01/15/25 20:08 IV .[id number] PRN Saline Flush Sodium Chloride 250 mls @ 15 mls/hr 01/15/25 20:08 IV .[id number] PRN Additional IVPB Infusion Ceftriaxone Sodium 2 gm/ 50 mls @ 100 mls/hr 01/16/25 10:00 01/17/25 10:20 Sodium Chloride IV Infused Q24 EFFIE Infusion Vancomycin HCl 750 mg/ Sodium 265 mls @ 250 mls/hr 01/17/25 16:00 Chloride IV Q12H EFFIE Lactated Ringer's 1,000 mls @ 15 mls/hr 01/17/25 13:45 IV .Q48H [facility] Melatonin 3 mg 01/15/25 20:07 Melatonin 3 Mg Tablet PO QHS PRN PRN INSOMNIA Multivitamins 1 tablet 01/16/25 08:00 01/17/25 08:21 Multivitamins,Therapeutic Tablet PO Not Given DAILYCM [facility] Nutritional Formula (Lactose Free) 120 ml 01/16/25 08:00 01/17/25 12:08 Ensure Plus High Protein 120 Ml Liquid PO Not Given TIDCM [facility] Ondansetron HCl 4 mg 01/15/25 20:07 01/16/25 21:46 Ondansetron 4 Mg/2 Ml Vial IV 4 mg Q8H PRN PRN Administration NAUSEA/VOMITING Sodium Chloride 10 - 40 ml 01/15/25 20:08 01/17/25 08:25 0.9% Saline Lock 10 Ml Syringe IV 20 ml UD PRN Administration SALINE FLUSH Vancomycin Protocol 1 lab 01/19/25 02:30 Vancomycin Trough/Random Due 01/19/25 04:30 DAILY [facility] Medical History Wears glasses Arthritis Shortness of breath on exertion Leg cramps Change in bowel habit Generalized abdominal pain Heart murmur Dyspnea on exertion Post-menopausal High cholesterol Back pain Syncope Gastric reflux Smoker BiPAP (biphasic positive airway pressure) dependence Asthma History of echocardiogram History of stress test Cardiology follow-up encounter Hyperlipidemia Skin cancer Anxiety and depression Home Medications ?Medication ?Instructions ?Recorded ?Last Taken ?Type albuterol sulfate 90 mcg/actuation 2 puff inhalation Q6H PRN 04/15/23 Unknown History aerosol inhaler shortness of breath or wheezing bupropion HCl 150 mg tablet,12 hr 150 mg PO BID depression 06/23/24 01/15/25 History sustained-release (Wellbutrin SR) escitalopram oxalate 10 mg tablet 10 mg PO DAILY depression 06/23/24 01/15/25 History (Lexapro) lactobacillus combination no.9 4 4,000 mmu cells PO QDAY supplement 06/23/24 01/14/25 History billion cell capsule (Adult 50 Plus Probiotic) multivitamin (Daily Multi-Vitamin 1 tab PO DAILY vitamin 07/06/24 01/14/25 History tablet) cholecalciferol (vitamin D3) 125 125 mcg PO QDAY supplement 07/20/24 01/15/25 History mcg (5,000 unit) capsule Oral appliance #1 ea 08/16/24 Unknown Rx escitalopram oxalate 20 mg tablet 20 mg PO QDAY depression 10/06/24 01/15/25 History (Lexapro) rosuvastatin 20 mg tablet 20 mg PO DAILY hyperlipidemia 10/06/24 01/15/25 History apixaban 5 mg tablet (Eliquis) 5 mg PO BID 30 days #60 tabs 01/09/25 01/15/25 Rx ceftriaxone 1 gram/50 mL in 2 g (100 mL) IV Q24 37 days #37 ea 01/09/25 01/15/25 Rx dextrose (iso-osmot) intravenous piggyback furosemide 20 mg tablet (Lasix) 20 mg PO QODAY 90 days #45 tabs 01/09/25 01/14/25 Rx vancomycin 750 mg intravenous 750 mg IV Q12H 37 days #74 ea 01/09/25 01/15/25 Rx solution acetaminophen 500 mg capsule 1,000 mg PO Q6H PRN pain 01/15/25 01/15/25 History Allergy/AdvReac Type Severity Reaction Status Date / Time Penicillins Allergy Intermediate Hives Verified 01/15/25 13:58 Family History Mother Breast cancer Hypertension Aunt Breast cancer Brother Hypertension Father Atrial fibrillation Surgical History History of esophagogastroduodenoscopy (EGD) Hx of colonoscopy Cyst Removal from breast History of LAVH Hx of appendectomy Social History Smoking Status: Former smoker quit date: 11/02/24 pack-years: 20 Tobacco: How many years used: 40 alcohol intake: never substance use type: does not use caffeine: Yes what type of physical activity do you participate in: walking frequency: 3-4 times per week seatbelt use: always do you feel safe at home: Yes additional social history: , Just moved back from the [facility] Review of Systems (Anesthesia) ROS Narrative System reviewed and no additional complaints, except as documented.
[2025-01-17] MEDS: Lactated Ringers 1,000 ML 15 ML IV (13:55)
[2025-01-17] MEDS: Lidocaine 1% (5 ml sdv) 5 ML Vial IV (14:15)
--- NOTE | 2025-01-17 14:29 | OP.EGD_ITS ---
Patient Name: Flakita Payton
--- NOTE | 2025-01-17 14:34 | POSTOP.ANE_ITS ---
Anesthesia: Postop Eval I
--- NOTE | 2025-01-17 14:34 | PCM.POST.ANE ---
Anesthesia: Postop Eval I Current Vital Signs Temperature: 97 F Pulse Rate: 98 Blood Pressure: 82/49 Respiratory Rate: 18 Pulse Ox: 94 Oxygen Delivery Method: Nasal Cannula Oxygen Flow Rate (L/min): 2 Assessment Airway patent: Yes Spontaneous unlabored respirations: Yes Mental status: Awake and Calm nausea: No Vomiting: No Anesthesia Complication: No Fluid Hydration Crystalloid volume administer (ml): 200 Total IV fluid infused: 200 Progress Note Anesthesia document: Postop Eval 1 completed: Yes
--- NOTE | 2025-01-17 15:07 | POSTOPAN2_ITS ---
Anesthesia Postop Eval I Sum
--- NOTE | 2025-01-17 15:07 | PCM.POSTANE2 ---
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 [email or web address] Spontaneous unlabored Yes 01/17/25 14:34 WOOD PATTERNMAKER APPRENTICE.[email or web address] respirations Mental status Awake,Calm 01/17/25 14:34 WOOD PATTERNMAKER APPRENTICE.[email or web address] nausea No 01/17/25 14:34 WOOD PATTERNMAKER APPRENTICE.[email or web address] Vomiting No 01/17/25 14:34 WOOD PATTERNMAKER APPRENTICE.[email or web address] Anesthesia Postop Eval I: Fluid Summary Crystalloid volume administer 200 01/17/25 14:34 WOOD PATTERNMAKER APPRENTICE.GDOTT (ml) Colloids volume administered ( ml) Blood Product volume administered (ml) Total IV fluid infused 200 01/17/25 14:34 WOOD PATTERNMAKER APPRENTICE.GDOTT Anesthesia Postop Eval I: Summary Notes Anesthesia Complication No 01/17/25 14:34 WOOD PATTERNMAKER APPRENTICE.[email or web address] Anesthesia Complication Comment: Post-operative progress note Anesthesia: Postop Eval II Evaluation Mental status: Awake and Calm Pain Level: 1 nausea: No Vomiting: No Complications Anesthesia Complication: No
[2025-01-17] MEDS: Vancomycin HCl 750 MG in 0.9% Normal Saline (250mL Bag) 250 ML 250 MG IV (16:05)
[2025-01-17] MEDS: Polyethylene Glycol 3350 BOWEL PREP PO (17:21)
--- NOTE | 2025-01-17 18:48 | PN.HOSP_ITS ---
Reason for Visit
--- NOTE | 2025-01-17 18:48 | PCM.PN.HOSP ---
Reason for Visit Chief Complaint: Shortness of breath and fatigue Subjective Subjective Patient was seen and examined today, she underwent an EGD which did not show any abnormality, patient's hemoglobin today was 7.6 and her white blood cell count was 12.6. CBC will be repeated tomorrow, patient is due to undergo colonoscopy tomorrow. Objective Data Objective Data Vital Signs: Vital Signs Temp Pulse Resp BP Pulse Ox O2 Del Method O2 Flow Rate 98.2 F 96 18 100/60 95 Nasal Cannula 4 01/17/25 15:40 01/17/25 15:40 01/17/25 15:40 01/17/25 15:40 01/17/25 15:40 01/17/25 15:40 01/17/25 15:40 Oxygen Flow Rate (L/min) 4 Oxygen Delivery Method Nasal Cannula Weight: 68.4 kg Body Mass Index (BMI) 26.6 Intake & Output: Intake and Output for Last 24 Hours 01/15/25 01/16/25 01/17/25 23:59 23:59 23:59 Intake Total 280 / 280 1909 742.5 / 742.5 Balance 280 / 280 1909 / 1909 742.5 / 742.5 Lab / Micro Data 01/18/25 04:05 01/17/25 05:08 Labs: Laboratory Results - last 24 hr 01/16/25 09:00: Hgb 7.4 L, Hct 23.1 L 01/17/25 05:08: WBC 12.6 H, RBC 2.73 L, Hgb 7.6 L, Hct 23.9 L, MCV 87.5, MCH 27.8, MCHC 31.8 L, RDW Std Deviation 48.0 H, RDW Coeff of Millie 15.2 H, Plt Count 216, MPV 10.8, Immature Gran % (Auto) 0.600, Neut % (Auto) 69.2, Lymph % (Auto) 11.0 L, [place] % (Auto) 9.2, Eos % (Auto) 9.0 H, Baso % (Auto) 1.0, Absolute Neuts (auto) 8.8 H, Absolute Lymphs (auto) 1.39, Nucleated RBC % 0, Sodium 140, Potassium 3.4, Chloride 105, Carbon Dioxide 24.5, Anion Gap 11, BUN 10, Creatinine 0.80, Estim Creat Clear Calc 64.21, Est GFR (MDRD) Non-Af 81, BUN/Creatinine Ratio 12.4, Glucose 118 H, Calcium 8.7 01/17/25 11:06: Vancomycin Trough 20.3 H Micro: Microbiology 01/15/25 15:10 Stool Stool Occult Blood (RUTH) - Final Occult Blood Positive Physical Exam Const alert, oriented x3, no apparent distress, average body habitus and healthy appearing General Appearance: cooperative, well kempt and well developed Orientation / Consciousness: awake, oriented to person, oriented to place and oriented to time HEENT normocephalic and moist oral mucous membranes Eyes PERRL, EOMs intact bilaterally and conjunctivae normal Neck supple, no JVD, thyroid normal and no carotid bruits General: trachea midline Resp normal respiratory effort and clear to auscultation bilaterally Auscultation: Negative for rales, rhonchi or wheezes Cardio regular rate, regular rhythm, no murmurs, no rub and no gallops GI normal to inspection, nondistended, normoactive bowel sounds, soft to palpation, non-tender and non-distended Extremity no clubbing, cyanosis or edema Skin no rashes or lesions noted General Skin Exam: no breakdown Neuro oriented x3, CN's II-XII intact bilaterally, no focal motor deficits and no sensory deficits noted Sensorium / Orientation: awake and alert Speech: speech normal Psych affect normal Assessment & Plan Assessment/Plan (1) GI (gastrointestinal bleed): PLAN: Plan 1. Blood loss anemia secondary to use of anticoagulation and gastrointestinal bleed-patient's EGD was unremarkable, she will have a colonoscopy tomorrow, patient will be placed on prophylactic Lovenox, she will be seen by vascular surgery regarding a possible vena caval filter placement, CBC will be monitored #2 acute on chronic diastolic congestive heart failure-I have elected to keep the patient on oral Lasix but increase the dosage at this time #3 hypoxia secondary to #2-patient's pulse ox will be monitored, oxygen will be adjusted as necessary #4 endocarditis-patient will remain on her present antibiotics #5 VTE in the lower extremities-patient has no evidence of pulmonary embolism at this time, she does have VTE's in the lower extremities, again she will be seen by vascular surgery for possible vena caval filter placement #6 elevated troponins indicating demand ischemia from CHF Total clinical time spent by myself addressing the patient's medical issues, reviewing all of her data, and collaborating with the patient's care team: 35 minutes Charges/Coding Visit Charges Inpatient E&M: 86367 Subs Hosp L2
[2025-01-18] VITALS (20 sets, daily range): BP systolic 80–111; BP diastolic 50–69; PULSE 88–104; RESP 14–28; TEMP 36.4–36.8; O2SAT 92–100; BMI 26.6
[2025-01-18] MEDS: Vancomycin HCl 750 MG in 0.9% Normal Saline (250mL Bag) 250 ML 250 MG IV ×2 (04:15→16:15)
[2025-01-18 04:24] LABS: Hematocrit 22.4 % (37-47); Hemoglobin 7.1 g/dL (12.0-15.0); Immature Granulocytes Count 0.100 X10^3/uL (0.0-0.0); Mean Corp Hgb Conc 31.7 g/dL (32-36); Mean Corpuscular Volume 88.9 fL (81-99); Mean Platelet Vol. 10.5 fl (6.2-12.0); NRBC Flagged by Analyzer 0 % (0-5); Platelet Count 189 K/mm3 (150-450); RBC Distribution Width CV 15.0 % (11.6-14.6); RBC Distribution Width SD 48.6 fl (35.1-43.9); Red Blood Count 2.52 M/mm3 (4.2-5.4); White Blood Count 12.8 K/mm3 (4.4-11.0)
[2025-01-18] MEDS: buPROPion (SR) 150 MG Tablet.SA PO ×2 (08:43→21:37)
--- NOTE | 2025-01-18 11:42 | PCM.PRE.AN2 ---
ASA Classification* ASA Classification ASA Classification: 3 Assessment & Plan Anesthesia* Anesthesia Assessment Anesthesia Assessment: Discussed sedation and/or anesthesia options, risks, benefits, and alternatives with patient/parents/legal guardian/POA. Questions invited. The patient/parents/legal guardian/POA seems to understand and agrees to proceed with anesthesia plan. Reviewed the physical assessment, medical history, allergy history and patient home medications list prior to surgery/procedure/anesthetic and documented any changes. Performed airway and anesthesia risk assessments. Anesthesia Type Anesthesia Type: MAC Anesthesia Focused Assessment* Temperature: 97.8 F Pulse Rate: 91 Blood Pressure: 91/58 Respiratory Rate: 18 Pulse Ox: 93 Oxygen Flow Rate (L/min): 5 Airway Assessment Mouth opens: >3 cm Mallampati Score: II Labs Anesthesia Preop lab: CBC WBC, (4.4-11.0) 12.8 K/mm3 H Today, 04:05 RBC, (4.2-5.4) 2.52 M/mm3 L Today, 04:05 Hgb, (12.0-15.0) 7.1 g/dL L Today, 04:05 Hct, (37-47) 22.4 % L Today, 04:05 Plt Count, (150-450) 189 K/mm3 Today, 04:05 CHEMISTRY Potassium, (3.3-5.1) 3.4 mmol/L 01/17/25, 05:08 Sodium, (133-145) 140 mmol/L 01/17/25, 05:08 Magnesium, (1.5-2.2) 2.2 mg/dL 01/16/25, 03:15 Phosphorus, (2.7-4.5) 3.4 mg/dL 01/16/25, 03:15 BUN, (4-19) 10 mg/dL 01/17/25, 05:08 Creatinine, (0.70-1.20) 0.80 mg/dL 01/17/25, 05:08 Glucose, (70-99) 118 mg/dL H 01/17/25, 05:08 TSH, (0.300-4.200) 0.683 uIU/mL 07/19/24, 09:15 COAG PT, (11.7-14.9) 14.5 SECONDS 11/03/24, 14:00 Pre-Assessment Diagnosis/Proposed Procedure Planned Operative Procedure(s): colonoscopy Anesthesia History Anesthesia History - blunger loader: Anesthesia History - blunger loader Hx Hospitalization No 10/06/24 13:46 Any Problems With Anesthesia No 01/18/25 09:10 Cholinesterase deficiency No 01/18/25 09:10 You/Your Family Experience No 01/18/25 09:10 fever (hyperthermia) with Relationship Recent Exposure to Contagious No 01/18/25 09:10 Disease Does patient have nerve No 01/18/25 09:10 stimulator Patient instructed to have device shut off --Does patient have Pacemaker No 01/18/25 09:10 or ICD? When Was Last Pacemaker Check QUESTION #4 FULL TEXT: You/Your Family Experience fever (hyperthermia) with Anesthesia Last Oral Intake Last Oral intake: Last Oral Intake NPO since 00:01 01/18/25 09:10 Meds taken in AM with sips of Yes 01/18/25 09:10 water? Meds patient instructed to see mar 01/18/25 09:10 take am of surgery PONV PONV - blunger loader: PONV - blunger loader Female HX of Motion Sickness HX of N/V After Surgery Non-Smoker Duration of Surgery greater than 60 minutes Number of Risk Factors PONV Score Height & Weight Height & Weight: Anesthesia: Height & Weight Height 5 ft 3 in 01/18/25 09:10 Weight: 68.4 kg 01/18/25 09:10 Body Mass Index (BMI) 26.6 01/18/25 09:10 Respiratory Assessment Respiratory Assessment - blunger loader: Respiratory Tract Infection Hx - blunger loader Hx Respiratory Tract Infection Yes: pna 1 mos ago per pt 01/18/25 09:10 STOP Sleep Apnea STOP Sleep Apnea - blunger loader: STOP Sleep Apnea - blunger loader Hx Hypertension No 01/15/25 20:08 Hx Sleep Apnea Yes 01/17/25 14:50 CPAP No 01/15/25 20:08 BIPAP Yes 01/15/25 20:08 Do you snore loudly (louder than talking or can be heard Do you often feel tired/ fatigued/ sleepy during daytime? Has anyone observed you stop breathing during sleep? STOP Results Positive 01/15/25 20:08 QUESTION #5 FULL TEXT : Do you snore loudly (louder than talking or can be heard through closed doors)? Tobacco Use History Tobacco Use History - blunger loader: Tobacco Use History - blunger loader Tobacco Use Smoking Status Former smoker 01/16/25 02:08 Hx Tobacco Use Yes 01/15/25 20:08 Years Smoking Packs Smoked per Day Smoking Cessation Date was Yes - quit smoking within 15 01/15/25 20:08 within the last 15 years years Hx Smoking Cessation Date Hx Smoking Cessation Counseling Hematologic Medial History Hematologic Hx - blunger loader: Hematologic Medical Hx - plowing gardens Hx of Blood Transfusion No 01/15/25 20:08 Hx of Transfusion in last 3 No 01/15/25 20:08 Months Date of Last Transfusion (if within last 3 months) Ever experience any problems No 01/15/25 20:08 with transfusion(s)? Specify any problems Hx of Preganancy in last 3 No 01/15/25 20:08 Months Nurse Filling Out Transfusion MGROVE 01/15/25 20:08 & Questions: Date: 01/15/25 01/15/25 20:08 Time: 20:17 01/15/25 20:08 Patient unable to answer at this time (ie. confused, unrespo /Reproduction History /Reproductive History - blunger loader: /Reproductive Hx- blunger loader Hx Now No 01/16/25 08:35 Gestational Age (in weeks): EDC: Hx Hx Para Hx Section SAB No 01/16/25 08:35 Active Medications Active Medications: Current Medications Generic Name Dose Route Start Last Admin Trade Name Freq PRN Reason Stop Dose Admin Acetaminophen 650 mg 01/15/25 20:07 01/18/25 06:00 Acetaminophen 325 Mg Tablet PO 650 mg Q6H PRN PRN Administration Pain 1-10 Or Fever>100.7 Albuterol Sulfate 2.5 mg 01/15/25 20:07 Albuterol 2.5 Mg/3 Ml Vial.Neb. INHALATION Q4H PRN PRN shortness of breath/wheezing Atorvastatin Calcium 40 mg 01/15/25 22:00 01/17/25 21:44 Atorvastatin Calcium 40 Mg Tablet PO 40 mg QHS EFFIE Administration Bupropion HCl 150 mg 01/15/25 22:00 01/18/25 08:43 Bupropion (Sr) 150 Mg Tablet.Sa PO 150 mg BID EFFIE Administration Cholecalciferol 125 mcg 01/16/25 10:00 01/18/25 07:43 Cholecalciferol (Vit D3) 125 Mcg Capsule (5,000 Units) PO Not Given DAILY EFFIE Enoxaparin Sodium 40 mg 01/16/25 17:10 01/17/25 12:08 Enoxaparin 40 Mg/0.4 Ml Syringe SC Not Given DAILY EFFIE Escitalopram Oxalate 30 mg 01/16/25 10:00 01/18/25 08:42 Escitalopram Oxalate 10 Mg Tablet PO 30 mg DAILY EFFIE Administration Furosemide 40 mg 01/16/25 22:00 01/18/25 08:42 Furosemide 40 Mg Tablet PO 40 mg BID EFFIE Administration Protocol Pantoprazole Sodium 40 mg/ 100 mls @ 330 mls/hr 01/16/25 10:00 01/17/25 21:40 Sodium Chloride IV Not Given Q12 EFFIE Sodium Chloride 250 mls @ 15 mls/hr 01/15/25 20:08 IV .[id number] PRN Saline Flush Sodium Chloride 250 mls @ 15 mls/hr 01/15/25 20:08 IV .[id number] PRN Additional IVPB Infusion Ceftriaxone Sodium 2 gm/ 50 mls @ 100 mls/hr 01/16/25 10:00 01/17/25 10:20 Sodium Chloride IV Infused Q24 EFFIE Infusion Vancomycin HCl 750 mg/ Sodium 265 mls @ 250 mls/hr 01/17/25 16:00 01/18/25 05:22 Chloride IV Infused Q12H EFFIE Infusion Melatonin 3 mg 01/15/25 20:07 Melatonin 3 Mg Tablet PO QHS PRN PRN INSOMNIA Multivitamins 1 tablet 01/16/25 08:00 01/18/25 07:42 Multivitamins,Therapeutic Tablet PO [facility] Nutritional Formula (Lactose Free) 120 ml 01/16/25 08:00 01/18/25 07:42 Ensure Plus High Protein 120 Ml Liquid PO Not Given TIDCM [facility] Ondansetron HCl 4 mg 01/15/25 20:07 01/16/25 21:46 Ondansetron 4 Mg/2 Ml Vial IV 4 mg Q8H PRN PRN Administration NAUSEA/VOMITING Sodium Chloride 10 - 40 ml 01/15/25 20:08 01/17/25 08:25 0.9% Saline Lock 10 Ml Syringe IV 20 ml UD PRN Administration SALINE FLUSH Vancomycin Protocol 1 lab 01/19/25 02:30 Vancomycin Trough/Random Due 01/19/25 04:[address] [facility] Medical History New onset of congestive heart failure Wears glasses Arthritis Shortness of breath on exertion Leg cramps Change in bowel habit Generalized abdominal pain Heart murmur Dyspnea on exertion Post-menopausal High cholesterol Back pain Syncope Gastric reflux Smoker BiPAP (biphasic positive airway pressure) dependence Asthma History of echocardiogram History of stress test Cardiology follow-up encounter Hyperlipidemia Skin cancer Anxiety and depression Home Medications ?Medication ?Instructions ?Recorded ?Last Taken ?Type albuterol sulfate 90 mcg/actuation 2 puff inhalation Q6H PRN 04/15/23 Unknown History aerosol inhaler shortness of breath or wheezing bupropion HCl 150 mg tablet,12 hr 150 mg PO BID depression 06/23/24 01/15/25 History sustained-release (Wellbutrin SR) escitalopram oxalate 10 mg tablet 10 mg PO DAILY depression 06/23/24 01/15/25 History (Lexapro) lactobacillus combination no.9 4 4,000 mmu cells PO QDAY supplement 06/23/24 01/14/25 History billion cell capsule (Adult 50 Plus Probiotic) multivitamin (Daily Multi-Vitamin 1 tab PO DAILY vitamin 07/06/24 01/14/25 History tablet) cholecalciferol (vitamin D3) 125 125 mcg PO QDAY supplement 07/20/24 01/15/25 History mcg (5,000 unit) capsule Oral appliance #1 ea 08/16/24 Unknown Rx escitalopram oxalate 20 mg tablet 20 mg PO QDAY depression 10/06/24 01/15/25 History (Lexapro) rosuvastatin 20 mg tablet 20 mg PO DAILY hyperlipidemia 10/06/24 01/15/25 History apixaban 5 mg tablet (Eliquis) 5 mg PO BID 30 days #60 tabs 01/09/25 01/15/25 Rx ceftriaxone 1 gram/50 mL in 2 g (100 mL) IV Q24 37 days #37 ea 01/09/25 01/15/25 Rx dextrose (iso-osmot) intravenous piggyback furosemide 20 mg tablet (Lasix) 20 mg PO QODAY 90 days #45 tabs 01/09/25 01/14/25 Rx vancomycin 750 mg intravenous 750 mg IV Q12H 37 days #74 ea 01/09/25 01/15/25 Rx solution acetaminophen 500 mg capsule 1,000 mg PO Q6H PRN pain 01/15/25 01/15/25 History Allergy/AdvReac Type Severity Reaction Status Date / Time Penicillins Allergy Intermediate Hives Verified 01/15/25 13:58 Family History Mother Breast cancer Hypertension Aunt Breast cancer Brother Hypertension Father Atrial fibrillation Surgical History History of esophagogastroduodenoscopy (EGD) Hx of colonoscopy Cyst Removal from breast History of LAVH Hx of appendectomy Social History Smoking Status: Former smoker quit date: 11/02/24 pack-years: 20 Tobacco: How many years used: 40 alcohol intake: never substance use type: does not use caffeine: Yes what type of physical activity do you participate in: walking frequency: 3-4 times per week seatbelt use: always do you feel safe at home: Yes additional social history: , Just moved back from the [facility] Review of Systems (Anesthesia) ROS Narrative System reviewed and no additional complaints, except as documented.
--- NOTE | 2025-01-18 11:43 | SUR.PREOP ---
pt down to ac from the floor oriented to pre op plan of care
[2025-01-18] MEDS: Lactated Ringers 1,000 ML 15 ML IV (12:00)
--- NOTE | 2025-01-18 12:00 | COLBX_PTH ---
PATIENT: MARY AGUILERA LOC: ICU U#:[id number] AGE/SX: 64/F ROOM: [place] [address] RE01/15/[address]: Dr. Pablo Crump DO : 1960 BED: 1 DIS: 01/20/2025 SPEC #: [id number] RECD: 01/18/25 13:52 STATUS: ALLYSSA REQ #: [id number] KAREY: 01/18/25 12:[address]: Hermilo Miller DEPT: SURGICAL PATHOLOGY RECD BY: Jude Toussaint ENTERED: 01/18/25 15:57 SP TYPE: COLON BX OTHR DR: Dr. Mitch Martinez, MD Dr. Edgardo Hood Dr., MD Dr. Mark Tereletsky, MD Rosario Yoon Dr., [employer]STRUCTION TE[employer]ER-[employer] Reyna Crews, CONSTRUCTION TEACHER-C GEETA [place], [facility], [employer] TE[employer]ER-C Tissues: A - Cecum, NOS Procedures: Surgery Specimen Level IV HEADER OPERATION: Colonoscopy with polypectomy PRE-OP DIAGNOSIS: GI bleed TISSUE SUBMITTED: A- Cecum polyp MICROSCOPIC DIAGNOSIS A. Cecum, polyp, biopsy: - Colonic mucosal polyp distorted by cautery artifact - see note. Note: The cautery artifact limits the assessment. 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 MICROSCOPIC DESCRIPTION Slides are reviewed. GROSS DESCRIPTION A. Received in fixative is one container labeled with the patient's name and designated Cecal polyp. The specimen consists of one irregular fragment of estevez tissue that measures 0.4 cm. The specimen is totally submitted in one cassette. MN 01/18/2025 CPT:07728
--- NOTE | 2025-01-18 12:59 | OP.COLON_ITS ---
Patient Name: Flakita Payton
--- NOTE | 2025-01-18 13:07 | POSTOP.ANE_ITS ---
Anesthesia: Postop Eval I
--- NOTE | 2025-01-18 13:07 | PCM.POST.ANE ---
Anesthesia: Postop Eval I Current Vital Signs Temperature: 97.7 F Pulse Rate: 89 Blood Pressure: 87/54 Respiratory Rate: 16 Pulse Ox: 94 Oxygen Delivery Method: Nasal Cannula Oxygen Flow Rate (L/min): 2 Assessment Airway patent: Yes Spontaneous unlabored respirations: Yes Mental status: Awake and Calm nausea: No Vomiting: No Anesthesia Complication: Yes Anesthesia Complication Comment:: O2 sat ~90% d/t bilat. PE Fluid Hydration Crystalloid volume administer (ml): 400 Total IV fluid infused: 400 Progress Note Anesthesia document: Postop Eval 1 completed: Yes
[2025-01-18] MEDS: Ceftriaxone 2 GM in 0.9% Normal Saline (50mL MB+) 50 ML IV (14:08)
[2025-01-18] MEDS: Pantoprazole Sodium 40 MG in 0.9% Normal Saline (100mL MB+) 100 ML 330 MG IV ×2 (14:08→21:36)
--- NOTE | 2025-01-18 14:31 | PCM.PN.SRG ---
Subjective Subjective I saw Flakita this afternoon after her colonoscopy. She reports feeling a bit drowsy but otherwise no active complaints. Objective Data Objective Data Vital Signs: Vital Signs Temp Pulse Resp BP Pulse Ox O2 Del Method O2 Flow Rate 97.7 F L 93 18 91/55 L 98 Nasal Cannula 5 01/18/25 13:24 01/18/25 14:22 01/18/25 14:22 01/18/25 14:22 01/18/25 14:22 01/18/25 14:22 01/18/25 14:22 Oxygen Flow Rate (L/min) 5 Oxygen Delivery Method Nasal Cannula Weight: 150 lb 12.739 oz Body Mass Index (BMI) 26.6 Intake & Output: Intake and Output for Last 24 Hours 01/16/25 01/17/25 01/18/25 23:59 23:59 23:59 Intake Total 1909 1492.5 / 1492.5 265 / 265 Output Total Balance 1909 1492.5 / 1492.5 264 / 264 Lab / Micro Data 01/18/25 04:05 01/17/25 05:08 Labs: Laboratory Results - last 24 hr 01/15/25 17:20: Crossmatch See Detail 01/18/25 04:05: WBC 12.8 H, RBC 2.52 L, Hgb 7.1 L, Hct 22.4 L, MCV 88.9, MCH 28.2, MCHC 31.7 L, RDW Std Deviation 48.6 H, RDW Coeff of Millie 15.0 H, Plt Count 189, MPV 10.5, Immature Gran % (Auto) 0.800, Neut % (Auto) 72.9 H, Lymph % (Auto) 9.5 L, [place] % (Auto) 10.0, Eos % (Auto) 5.9 H, Baso % (Auto) 0.9, Absolute Neuts (auto) 9.3 H, Absolute Lymphs (auto) 1.22, Nucleated RBC % 0 Micro: Microbiology 01/15/25 15:10 Stool Stool Occult Blood (RUTH) - Final Occult Blood Positive Physical Exam Const alert, oriented x3 and no apparent distress General Appearance: cooperative and comfortable HEENT normocephalic, head/scalp atraumatic, hearing grossly normal bilaterally, external ears normal and external nose normal Eyes EOMs intact bilaterally General Eye: normal appearance of both eyes Neck General: normal visual inspection and trachea midline Resp normal respiratory effort Effort and Inspection: able to speak in complete sentences; Negative for labored, grunting or stridor Cardio regular rate Neuro oriented x3 and moves all extremities Speech: speech normal Psych mental status grossly normal Appearance: grossly normal Attitude: calm and engaged Activity / Motor Behavior: appropriate eye contact Speech: normal speech Assessment & Plan Assessment/Plan (1) Anemia due to acute blood loss: (2) DVT (deep venous thrombosis): PLAN: Plan Her Hgb decreased slightly to 7.1 today. No source of bleeding to explain her anemia was identified on her upper or lower endoscopy. Given ongoing anemia of uncertain etiology, uncertain ability to tolerate anticoagulation going forward, and DVT/PE IVC filter is indicated. She is agreeable to proceed. Plan for IVC filter insertion in the medical laboratory manager tomorrow, likely late morning/early afternoon. Charges/Coding Visit Charges Inpatient E&M: 45079 Subs Hosp L1
[2025-01-18] MEDS: Ensure Plus High Protein 120 ML LIQUID PO (16:20)
--- NOTE | 2025-01-18 18:30 | PN.HOSP_ITS ---
Reason for Visit
--- NOTE | 2025-01-18 18:30 | PCM.PN.HOSP ---
Reason for Visit Chief Complaint: Shortness of breath and fatigue Subjective Subjective She was seen and examined today, she underwent a colonoscopy which revealed an AVM and a small polyp. Patient was given 1 unit of blood today due to hemoglobin of 7.1. I did talk with vascular surgery and I feel that the patient should undergo a vena caval filter placement in case she has other AVMs in the small intestine that were not detected. My plan is for her to resume her Eliquis after the vena cava filter is placed. Objective Data Objective Data Vital Signs: Vital Signs Temp Pulse Resp BP Pulse Ox O2 Del Method O2 Flow Rate 97.6 F L 90 16 91/58 L 98 Nasal Cannula 5 01/18/25 17:53 01/18/25 17:53 01/18/25 17:53 01/18/25 17:53 01/18/25 17:53 01/18/25 17:53 01/18/25 17:53 Oxygen Flow Rate (L/min) 5 Oxygen Delivery Method Nasal Cannula Weight: 68.4 kg Body Mass Index (BMI) 26.6 Intake & Output: Intake and Output for Last 24 Hours 01/16/25 01/17/25 01/18/25 23:59 23:59 23:59 Intake Total 1909 1492.5 / 1492.5 490.25 / 490.25 Output Total Balance 1909 1492.5 / 1492.5 489.25 / 489.25 Lab / Micro Data 01/18/25 04:05 01/17/25 05:08 Labs: Laboratory Results - last 24 hr 01/15/25 17:20: Crossmatch See Detail 01/18/25 04:05: WBC 12.8 H, RBC 2.52 L, Hgb 7.1 L, Hct 22.4 L, MCV 88.9, MCH 28.2, MCHC 31.7 L, RDW Std Deviation 48.6 H, RDW Coeff of Millie 15.0 H, Plt Count 189, MPV 10.5, Immature Gran % (Auto) 0.800, Neut % (Auto) 72.9 H, Lymph % (Auto) 9.5 L, [place] % (Auto) 10.0, Eos % (Auto) 5.9 H, Baso % (Auto) 0.9, Absolute Neuts (auto) 9.3 H, Absolute Lymphs (auto) 1.22, Nucleated RBC % 0 Micro: Microbiology 01/15/25 15:10 Stool Stool Occult Blood (RUTH) - Final Occult Blood Positive Physical Exam Narrative alert, oriented x3, no apparent distress, average body habitus and healthy appearing General Appearance: cooperative, well kempt and well developed Orientation / Consciousness: awake, oriented to person, oriented to place and oriented to time HEENT normocephalic and moist oral mucous membranes Eyes PERRL, EOMs intact bilaterally and conjunctivae normal Neck supple, no JVD, thyroid normal and no carotid bruits General: trachea midline Resp normal respiratory effort and clear to auscultation bilaterally Auscultation: Negative for rales, rhonchi or wheezes Cardio regular rate, regular rhythm, no murmurs, no rub and no gallops GI normal to inspection, nondistended, normoactive bowel sounds, soft to palpation, non-tender and non-distended Extremity no clubbing, cyanosis or edema Skin no rashes or lesions noted General Skin Exam: no breakdown Neuro oriented x3, CN's II-XII intact bilaterally, no focal motor deficits and no sensory deficits noted Sensorium / Orientation: awake and alert Speech: speech normal Psych affect normal Assessment & Plan Assessment/Plan (1) GI (gastrointestinal bleed): PLAN: Plan 1. 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 Her CBC will have to be monitored closely #4 endocarditis-patient remains on IV antibiotics at this time #5 chronic depression-patient remains on Wellbutrin and Lexapro at this time #6 acute on chronic diastolic congestive heart failure-patient will remain on oral Lasix #7 hypoxia secondary to #6-patient's pulse ox will be monitored Total clinical time spent by myself addressing the patient's medical issues, reviewing all of her data, and collaborating with patient's care team: 35 minutes Charges/Coding Visit Charges Inpatient E&M: 39390 Subs Hosp L2
--- NOTE | 2025-01-18 20:12 | PCM.HOSP.N ---
Hospitalist Note Patient s/p recent PRBC administration, now with increased hypoxia, recently had oral lasix increased. Will attempt to administer lasix 20 mg IV x 1 if BP allows.
[2025-01-18] MEDS: Furosemide 20 MG/2 ML VIAL IV ×2 (20:28→23:19)
[2025-01-18] MEDS: 0.9% Saline Lock 10 ML Syringe IV (20:29)
[2025-01-18 22:13] LABS: Base Excess 0 mmol/L (-2 to +2); FI02 6.0; PO2 53 mmHG (75-100); SITE R Brach; SO2 87 % (94-98)
--- NOTE | 2025-01-18 22:28 | CT_ITS ---
PROCEDURE: CT/CTA Chest W/WO Contrast
[2025-01-19] VITALS (33 sets, daily range): BP systolic 87–138; BP diastolic 57–82; PULSE 85–112; RESP 12–25; TEMP 36.1–37.2; O2SAT 89–100; BMI 26.6
[2025-01-19 00:40] LABS: Hematocrit 25.1 % (37-47); Hemoglobin 8.2 g/dL (12.0-15.0); Immature Granulocytes Count 0.080 X10^3/uL (0.0-0.0); Mean Corp Hgb Conc 32.7 g/dL (32-36); Mean Corpuscular Volume 87.2 fL (81-99); Mean Platelet Vol. 10.7 fl (6.2-12.0); NRBC Flagged by Analyzer 0.2 % (0-5); Platelet Count 204 K/mm3 (150-450); RBC Distribution Width CV 15.1 % (11.6-14.6); RBC Distribution Width SD 47.4 fl (35.1-43.9); Red Blood Count 2.88 M/mm3 (4.2-5.4); White Blood Count 13.2 K/mm3 (4.4-11.0)
[2025-01-19 01:12] LABS: AST(SGOT) 31 U/L (<=31); Alanine Aminotransfer ALT/SGPT 10 U/L (<=34); Albumin, Serum 3.6 g/dL (3.4-4.8); Alkaline Phosphatase 70 U/L (35-104); Anion Gap 14 (5-15); BUN 15 mg/dL (4-19); BUN/Creat Ratio 14.3 RATIO (10-20); Calcium,Total 8.4 mg/dL (7.6-11.0); Carbon Dioxide 21.8 mmol/L (21.0-32.0); Chloride 101 mmol/L (98-108); Estimated Creatinine Clearance 48.46 ml/min (50-250); Globulin 2.5 g/dL (2.2-4.2); Glucose 120 mg/dL (70-99); Potassium 3.1 mmol/L (3.3-5.1)
[2025-01-19 04:08] LABS: Hematocrit 24.6 % (37-47); Hemoglobin 8.1 g/dL (12.0-15.0); Immature Granulocytes Count 0.080 X10^3/uL (0.0-0.0); Mean Corp Hgb Conc 32.9 g/dL (32-36); Mean Corpuscular Volume 86.6 fL (81-99); Mean Platelet Vol. 10.6 fl (6.2-12.0); NRBC Flagged by Analyzer 0.2 % (0-5); Platelet Count 203 K/mm3 (150-450); RBC Distribution Width CV 15.2 % (11.6-14.6); RBC Distribution Width SD 47.8 fl (35.1-43.9); Red Blood Count 2.84 M/mm3 (4.2-5.4); White Blood Count 13.3 K/mm3 (4.4-11.0)
[2025-01-19 04:37] LABS: Vancomycin, Trough Level 19.4 ug/mL (5.0-15.0)
[2025-01-19 04:38] LABS: Anion Gap 13 (5-15); BUN 15 mg/dL (4-19); BUN/Creat Ratio 13.9 RATIO (10-20); Calcium,Total 8.8 mg/dL (7.6-11.0); Carbon Dioxide 23.4 mmol/L (21.0-32.0); Chloride 102 mmol/L (98-108); Estimated Creatinine Clearance 47.56 ml/min (50-250); Glucose 124 mg/dL (70-99); Potassium 3.2 mmol/L (3.3-5.1)
[2025-01-19] MEDS: Vancomycin HCl 750 MG in 0.9% Normal Saline (250mL Bag) 250 ML 250 MG IV ×2 (05:07→16:45)
[2025-01-19] MEDS: 0.9% Saline Lock 10 ML Syringe IV ×2 (05:12→19:23)
[2025-01-19] MEDS: 0.9% Normal Saline (250mL Bag) 250 ML 15 ML IV (05:12)
[2025-01-19] MEDS: Potassium Chloride 10mEq/100mL 10 MEQ/100 ML IV.SOLN. 100 MEQ IV BOLUS ×4 (05:19→08:36)
--- NOTE | 2025-01-19 05:59 | PCM.RX.CS ---
Consult Antibiotic Management Pharmacy has been consulted to manage selected antibiotic: Vancomycin Type of Intervention Type of Consult: Follow-up Labs Labs: Sodium 139 mmol/L (133-145) 01/19/25 03:50 Potassium 3.2 mmol/L (3.3-5.1) L 01/19/25 03:50 Chloride 102 mmol/L (98-108) 01/19/25 03:50 Carbon Dioxide 23.4 mmol/L (21.0-32.0) 01/19/25 03:50 Anion Gap 13 (5-15) 01/19/25 03:50 BUN 15 mg/dL (4-19) 01/19/25 03:50 Creatinine 1.08 mg/dL (0.70-1.20) 01/19/25 03:50 Est GFR (MDRD) Non-Af 57 (>60) L 01/19/25 03:50 BUN/Creatinine Ratio 13.9 RATIO (10-20) 01/19/25 03:50 Glucose 124 mg/dL (70-99) H 01/19/25 03:50 Vancomycin Trough 19.4 ug/mL (5.0-15.0) H 01/19/25 03:50 Random Vancomycin 13.2 ug/mL (0.0-15.0) 01/15/25 22:22 Microbiology Microbiology: Microbiology 01/15/25 15:10 Stool Stool Occult Blood (RUTH) - Final Occult Blood Positive Goal Trough Goal Trough: 15-20 mcg/mL Pharmacy Plan for Drug Dosing Pharmacy Plan for Drug Dosing: Pharmacy Service will continue to monitor and adjust dosing as required. TROUGH 19.4 @ 11.5 HOURS. NO CHANGES FOLLOW UP TROUGH IN 2 DAYS Follow-Up Labs Follow-Up Labs: Trough: Vancomycin Date/Time Labs Ordered Labs to be done on [date and time ordered]: 01/21 @ 4176
--- NOTE | 2025-01-19 08:00 | ECHOL_ITS ---
Reason For Study ECHO/Echo, Limited Study
--- NOTE | 2025-01-19 08:38 | EX.PCM.CONCC ---
HPI Consult Data Date of Consult: 01/19/25 HPI Narrative HPI Narrative: MARY AGUILERA, is a 64 F who presents [ ] [facility] Medical History New onset of congestive heart failure Wears glasses Arthritis Shortness of breath on exertion Leg cramps Change in bowel habit Generalized abdominal pain Heart murmur Dyspnea on exertion Post-menopausal High cholesterol Back pain Syncope Gastric reflux Smoker BiPAP (biphasic positive airway pressure) dependence Asthma History of echocardiogram History of stress test Cardiology follow-up encounter Hyperlipidemia Skin cancer Anxiety and depression Home Medications ?Medication ?Instructions ?Recorded ?Last Taken ?Type albuterol sulfate 90 mcg/actuation 2 puff inhalation Q6H PRN 04/15/23 Unknown History aerosol inhaler shortness of breath or wheezing bupropion HCl 150 mg tablet,12 hr 150 mg PO BID depression 06/23/24 01/15/25 History sustained-release (Wellbutrin SR) escitalopram oxalate 10 mg tablet 10 mg PO DAILY depression 06/23/24 01/15/25 History (Lexapro) lactobacillus combination no.9 4 4,000 mmu cells PO QDAY supplement 06/23/24 01/14/25 History billion cell capsule (Adult 50 Plus Probiotic) multivitamin (Daily Multi-Vitamin 1 tab PO DAILY vitamin 07/06/24 01/14/25 History tablet) cholecalciferol (vitamin D3) 125 125 mcg PO QDAY supplement 07/20/24 01/15/25 History mcg (5,000 unit) capsule Oral appliance #1 ea 08/16/24 Unknown Rx escitalopram oxalate 20 mg tablet 20 mg PO QDAY depression 10/06/24 01/15/25 History (Lexapro) rosuvastatin 20 mg tablet 20 mg PO DAILY hyperlipidemia 10/06/24 01/15/25 History apixaban 5 mg tablet (Eliquis) 5 mg PO BID 30 days #60 tabs 01/09/25 01/15/25 Rx furosemide 20 mg tablet (Lasix) 20 mg PO QODAY 90 days #45 tabs 01/09/25 01/14/25 Rx acetaminophen 500 mg capsule 1,000 mg PO Q6H PRN pain 01/15/25 01/15/25 History ceftriaxone 2 gram intravenous 2 g IV Q24H 29 days 01/18/25 Unknown Rx solution vancomycin 750 mg intravenous 750 mg IV Q12H 29 days #58 ea 01/18/25 Unknown Rx solution Allergy/AdvReac Type Severity Reaction Status Date / Time Penicillins Allergy Intermediate Hives Verified 01/15/25 13:58 Family History Mother Breast cancer Hypertension Aunt Breast cancer Brother Hypertension Father Atrial fibrillation Surgical History History of esophagogastroduodenoscopy (EGD) Hx of colonoscopy Cyst Removal from breast History of LAVH Hx of appendectomy Social History Smoking Status: Former smoker quit date: 11/02/24 pack-years: 20 Tobacco: How many years used: 40 alcohol intake: never substance use type: does not use caffeine: Yes what type of physical activity do you participate in: walking frequency: 3-4 times per week seatbelt use: always do you feel safe at home: Yes additional social history: , Just moved back from the [facility] Lab / Micro Data 01/19/25 03:50 01/19/25 03:50 Labs: Laboratory Results - last 24 hr 01/15/25 17:20: Crossmatch See Detail 01/19/25 00:30: WBC 13.2 H, RBC 2.88 L, Hgb 8.2 L, Hct 25.1 L, MCV 87.2, MCH 28.5, MCHC 32.7, RDW Std Deviation 47.4 H, RDW Coeff of Millie 15.1 H, Plt Count 204, MPV 10.7, Immature Gran % (Auto) 0.600, Neut % (Auto) 75.3 H, Lymph % (Auto) 8.6 L, [place] % (Auto) 8.8, Eos % (Auto) 5.8 H, Baso % (Auto) 0.9, Absolute Neuts (auto) 10.0 H, Absolute Lymphs (auto) 1.14, Nucleated RBC % 0.2, Sodium 137, Potassium 3.1 L, Chloride 101, Carbon Dioxide 21.8, Anion Gap 14, BUN 15, Creatinine 1.06, Estim Creat Clear Calc 48.46 L, Est GFR (MDRD) Non-Af 58 L, BUN/Creatinine Ratio 14.3, Glucose 120 H, Calcium 8.4, Total Bilirubin 0.56, AST 31, ALT 10, Alkaline Phosphatase 70, Total Protein 6.1, Albumin 3.6, Globulin 2.5, Albumin/Globulin Ratio 1.5 01/19/25 03:50: WBC 13.3 H, RBC 2.84 L, Hgb 8.1 L, Hct 24.6 L, MCV 86.6, MCH 28.5, MCHC 32.9, RDW Std Deviation 47.8 H, RDW Coeff of Millie 15.2 H, Plt Count 203, MPV 10.6, Immature Gran % (Auto) 0.600, Neut % (Auto) 72.6 H, Lymph % (Auto) 10.0 L, [place] % (Auto) 9.8, Eos % (Auto) 6.2 H, Baso % (Auto) 0.8, Absolute Neuts (auto) 9.6 H, Absolute Lymphs (auto) 1.32, Nucleated RBC % 0.2, Sodium 139, Potassium 3.2 L, Chloride 102, Carbon Dioxide 23.4, Anion Gap 13, BUN 15, Creatinine 1.08, Estim Creat Clear Calc 47.56 L, Est GFR (MDRD) Non-Af 57 L, BUN/Creatinine Ratio 13.9, Glucose 124 H, Calcium 8.8, Vancomycin Trough 19.4 H ABG Data ABG results: ABG 01/18/25 22:10 Specimen Type ART Sample Site R Brach pH 7.41 Bicarbonate Actual 24.6 Total CO2 26 Base Excess 0 O2 Saturation 87 L O2 % 6.0 ABG pCO2 39.0 ABG pO2 53 L José Miguel Test N/A O2 Delivery Device Cannula Vent Mode Not entered Imaging Radiology Impression Chest CTA 01/18/25 22:28 IMPRESSION: Minimal residual segmental branches pulmonary emboli are noted in the right, left upper lobe and bilateral lower lobes, probably chronic. This is unchanged. No definite CT evidence of an acute pulmonary embolus. No CT evidence of cardiac strain. Mild increase in the size of the previously described mediastinal and hilar lymphadenopathy with the largest lymph node measuring 2.1 cm (previously 1.8 cm). Well-defined hypodense right thyroid lobe nodule is noted measuring 1.4 cm. Mild right pleural effusion, mildly increased. Mild left pleural effusion, unchanged. No significant coronary artery calcifications. Nodular consolidation in the left lower lobe measuring 2.8 x 2.7 cm, unchanged. Follow-up is suggested. Increased interstitial pulmonary edema. Increased alveolar pulmonary edema. Bilateral basilar consolidations of the lower lobes, increased. Mild diffuse spondylosis. Unchanged mildly enlarged retroperitoneal lymph nodes. Reading [facility]
[2025-01-19] MEDS: Lactobacillis Acidophilus 1 CAP PO (08:40)
[2025-01-19] MEDS: buPROPion (SR) 150 MG Tablet.SA PO ×2 (08:41→22:24)
[2025-01-19] MEDS: Cholecalciferol (Vit D3) 125 MCG CAPSULE (5,000 UNITS) PO (08:41)
--- NOTE | 2025-01-19 08:48 | PCMCONS.TICU ---
HPI Consult Data Date of Consult: 01/19/25 HPI Narrative HPI Narrative: MARY AGUILERA, is a 64 F admitted to the floor secondary to a GI bleed c/b DVT and hypoxia. She was doing well with place for IVC filter today; however, earlier this AM she has significant hypoxemia and respiratory failure needing Bipap. She was then placed into the ICU. [facility] Medical History New onset of congestive heart failure Wears glasses Arthritis Shortness of breath on exertion Leg cramps Change in bowel habit Generalized abdominal pain Heart murmur Dyspnea on exertion Post-menopausal High cholesterol Back pain Syncope Gastric reflux Smoker BiPAP (biphasic positive airway pressure) dependence Asthma History of echocardiogram History of stress test Cardiology follow-up encounter Hyperlipidemia Skin cancer Anxiety and depression Home Medications ?Medication ?Instructions ?Recorded ?Last Taken ?Type albuterol sulfate 90 mcg/actuation 2 puff inhalation Q6H PRN 04/15/23 Unknown History aerosol inhaler shortness of breath or wheezing bupropion HCl 150 mg tablet,12 hr 150 mg PO BID depression 06/23/24 01/15/25 History sustained-release (Wellbutrin SR) escitalopram oxalate 10 mg tablet 10 mg PO DAILY depression 06/23/24 01/15/25 History (Lexapro) lactobacillus combination no.9 4 4,000 mmu cells PO QDAY supplement 06/23/24 01/14/25 History billion cell capsule (Adult 50 Plus Probiotic) multivitamin (Daily Multi-Vitamin 1 tab PO DAILY vitamin 07/06/24 01/14/25 History tablet) cholecalciferol (vitamin D3) 125 125 mcg PO QDAY supplement 07/20/24 01/15/25 History mcg (5,000 unit) capsule Oral appliance #1 ea 08/16/24 Unknown Rx escitalopram oxalate 20 mg tablet 20 mg PO QDAY depression 10/06/24 01/15/25 History (Lexapro) rosuvastatin 20 mg tablet 20 mg PO DAILY hyperlipidemia 10/06/24 01/15/25 History apixaban 5 mg tablet (Eliquis) 5 mg PO BID 30 days #60 tabs 01/09/25 01/15/25 Rx furosemide 20 mg tablet (Lasix) 20 mg PO QODAY 90 days #45 tabs 01/09/25 01/14/25 Rx acetaminophen 500 mg capsule 1,000 mg PO Q6H PRN pain 01/15/25 01/15/25 History ceftriaxone 2 gram intravenous 2 g IV Q24H 29 days 01/18/25 Unknown Rx solution vancomycin 750 mg intravenous 750 mg IV Q12H 29 days #58 ea 01/18/25 Unknown Rx solution Allergy/AdvReac Type Severity Reaction Status Date / Time Penicillins Allergy Intermediate Hives Verified 01/15/25 13:58 Family History Mother Breast cancer Hypertension Aunt Breast cancer Brother Hypertension Father Atrial fibrillation Surgical History History of esophagogastroduodenoscopy (EGD) Hx of colonoscopy Cyst Removal from breast History of LAVH Hx of appendectomy Social History Smoking Status: Former smoker quit date: 11/02/24 pack-years: 20 Tobacco: How many years used: 40 alcohol intake: never substance use type: does not use caffeine: Yes what type of physical activity do you participate in: walking frequency: 3-4 times per week seatbelt use: always do you feel safe at home: Yes additional social history: , Just moved back from the [facility] ROS ROS Narrative As per HPI Objective Data Objective Data Vital Signs: Vital Signs Last response Temperature 36.1 C L 01/19/25 04:00 Temperature Source Temporal 01/19/25 04:00 Pulse Rate 89 01/19/25 07:00 Pulse Strength Normal (2+) 01/18/25 08:30 Respiratory Rate 18 01/19/25 07:00 Respiratory Effort Normal, Non-Labored 01/19/25 01:30 Respiratory Depth Normal 01/19/25 01:30 Respiratory Pattern Normal 01/19/25 04:55 Blood Pressure 108/76 01/19/25 07:00 Blood Pressure Mean 86 01/19/25 07:00 Blood Pressure Source Monitor 01/19/25 07:00 Blood Pressure Position Semi-Fowlers 01/19/25 07:00 Blood Pressure Location Right Arm 01/19/25 07:00 Baseline BP 93/61 01/18/25 13:24 Pulse Ox 91 01/19/25 07:17 Oxygen Delivery Method Nasal Cannula 01/19/25 07:17 Oxygen Flow Rate (L/min) 8 01/19/25 07:17 Fraction of Inspired Oxygen (FIO2) 45 01/19/25 05:00 I&O: I&O Last 24 Hours 01/18/25 01/18/25 01/19/25 11:59 23:59 11:59 Intake Total 265 / 1905.25 1640.25 / 1905.25 572 / 572 Output Total 751 / 751 Balance 265 / 1154.25 889.25 / 1154.25 572 / 572 I&O: Total Stay 01/15/25 13:57 thru 01/19/25 08:20 Intake Total 6159.75 Output Total 751 Balance 5408.75 Current Meds Ordered / Administered: Current meds ordered / Administered Generic Name Dose Route Start Last Admin Trade Name Freq PRN Reason Stop Dose Admin Acetaminophen 650 mg 01/18/25 20:12 01/19/25 05:32 Acetaminophen 325 Mg Tablet PO 650 mg Q4H PRN PRN Administration Pain 1-10 Or Fever>100.7 Albuterol Sulfate 2.5 mg 01/15/25 20:07 Albuterol 2.5 Mg/3 Ml Vial.Neb. INHALATION Q4H PRN PRN shortness of breath/wheezing Atorvastatin Calcium 40 mg 01/15/25 22:00 01/18/25 21:37 Atorvastatin Calcium 40 Mg Tablet PO 40 mg QHS EFFIE Administration Bupropion HCl 150 mg 01/15/25 22:00 01/19/25 08:41 Bupropion (Sr) 150 Mg Tablet.Sa PO 150 mg BID EFFIE Administration Cholecalciferol 125 mcg 01/16/25 10:00 01/19/25 08:41 Cholecalciferol (Vit D3) 125 Mcg Capsule (5,000 Units) PO 125 mcg DAILY EFFIE Administration Enoxaparin Sodium 40 mg 01/16/25 17:10 01/19/25 08:46 Enoxaparin 40 Mg/0.4 Ml Syringe SC 40 mg DAILY EFFIE Administration Escitalopram Oxalate 30 mg 01/16/25 10:00 01/19/25 08:41 Escitalopram Oxalate 10 Mg Tablet PO 30 mg DAILY EFFIE Administration Pantoprazole Sodium 40 mg/ 100 mls @ 330 mls/hr 01/16/25 10:00 01/18/25 22:24 Sodium Chloride IV Infused Q12 EFFIE Infusion Sodium Chloride 250 mls @ 15 mls/hr 01/15/25 20:08 01/19/25 06:00 IV 0 mls/hr .[id number] PRN Infusion Saline Flush Sodium Chloride 250 mls @ 15 mls/hr 01/15/25 20:08 IV .[id number] PRN Additional IVPB Infusion Ceftriaxone Sodium 2 gm/ 50 mls @ 100 mls/hr 01/16/25 10:00 01/18/25 14:40 Sodium Chloride IV Infused Q24 EFFIE Infusion Vancomycin HCl 750 mg/ Sodium 265 mls @ 250 mls/hr 01/17/25 16:00 01/19/25 06:12 Chloride IV Infused Q12H EFFIE Infusion Potassium Chloride 10 meq in 100 mls @ 100 mls/hr 01/19/25 05:00 01/19/25 08:36 IV BOLUS 01/19/25 08:59 100 mls/hr Q1H EFFIE Administration Furosemide 500 mg/ N/A 50 mls @ 1 mls/hr 01/19/25 08:00 CONT INF .Q50H EFFIE 10 MG/HR Melatonin 3 mg 01/15/25 20:07 Melatonin 3 Mg Tablet PO QHS PRN PRN INSOMNIA Multivitamins 1 tablet 01/16/25 08:00 01/19/25 08:40 Multivitamins,Therapeutic Tablet PO 1 tablet DAILYCM EFFIE Administration Nutritional Formula (Lactose Free) 120 ml 01/16/25 08:00 01/18/25 16:20 Ensure Plus High Protein 120 Ml Liquid PO 120 ml TIDCM EFFIE Administration Ondansetron HCl 4 mg 01/15/25 20:07 01/16/25 21:46 Ondansetron 4 Mg/2 Ml Vial IV 4 mg Q8H PRN PRN Administration NAUSEA/VOMITING Sodium Chloride 10 - 40 ml 01/15/25 20:08 01/19/25 05:12 0.9% Saline Lock 10 Ml Syringe IV 10 ml UD PRN Administration SALINE FLUSH Vancomycin Protocol 1 lab 01/21/25 02:30 Vancomycin Trough/Random Due MC 01/21/25 04:30 DAILY EFFIE Physical Exam Narrative GEN: WDWN HEENT: MMM CV: NSR Pulm: no Audible wheezing, nor tachypnea Abd soft Ext: mild swelling Lab / Micro Data 01/19/25 03:50 01/19/25 03:50 Labs: Laboratory Results - last 24 hr 01/15/25 17:20: Crossmatch See Detail 01/19/25 00:30: WBC 13.2 H, RBC 2.88 L, Hgb 8.2 L, Hct 25.1 L, MCV 87.2, MCH 28.5, MCHC 32.7, RDW Std Deviation 47.4 H, RDW Coeff of Millie 15.1 H, Plt Count 204, MPV 10.7, Immature Gran % (Auto) 0.600, Neut % (Auto) 75.3 H, Lymph % (Auto) 8.6 L, [place] % (Auto) 8.8, Eos % (Auto) 5.8 H, Baso % (Auto) 0.9, Absolute Neuts (auto) 10.0 H, Absolute Lymphs (auto) 1.14, Nucleated RBC % 0.2, Sodium 137, Potassium 3.1 L, Chloride 101, Carbon Dioxide 21.8, Anion Gap 14, BUN 15, Creatinine 1.06, Estim Creat Clear Calc 48.46 L, Est GFR (MDRD) Non-Af 58 L, BUN/Creatinine Ratio 14.3, Glucose 120 H, Calcium 8.4, Total Bilirubin 0.56, AST 31, ALT 10, Alkaline Phosphatase 70, Total Protein 6.1, Albumin 3.6, Globulin 2.5, Albumin/Globulin Ratio 1.5 01/19/25 03:50: WBC 13.3 H, RBC 2.84 L, Hgb 8.1 L, Hct 24.6 L, MCV 86.6, MCH 28.5, MCHC 32.9, RDW Std Deviation 47.8 H, RDW Coeff of Millie 15.2 H, Plt Count 203, MPV 10.6, Immature Gran % (Auto) 0.600, Neut % (Auto) 72.6 H, Lymph % (Auto) 10.0 L, [place] % (Auto) 9.8, Eos % (Auto) 6.2 H, Baso % (Auto) 0.8, Absolute Neuts (auto) 9.6 H, Absolute Lymphs (auto) 1.32, Nucleated RBC % 0.2, Sodium 139, Potassium 3.2 L, Chloride 102, Carbon Dioxide 23.4, Anion Gap 13, BUN 15, Creatinine 1.08, Estim Creat Clear Calc 47.56 L, Est GFR (MDRD) Non-Af 57 L, BUN/Creatinine Ratio 13.9, Glucose 124 H, Calcium 8.8, Vancomycin Trough 19.4 H ABG Data ABG results: ABG 01/18/25 22:10 Specimen Type ART Sample Site R Brach pH 7.41 Bicarbonate Actual 24.6 Total CO2 26 Base Excess 0 O2 Saturation 87 L O2 % 6.0 ABG pCO2 39.0 ABG pO2 53 L José Miguel Test N/A O2 Delivery Device Cannula Vent Mode Not entered Imaging Radiology Impression Chest CTA 01/18/25 22:28 IMPRESSION: Minimal residual segmental branches pulmonary emboli are noted in the right, left upper lobe and bilateral lower lobes, probably chronic. This is unchanged. No definite CT evidence of an acute pulmonary embolus. No CT evidence of cardiac strain. Mild increase in the size of the previously described mediastinal and hilar lymphadenopathy with the largest lymph node measuring 2.1 cm (previously 1.8 cm). Well-defined hypodense right thyroid lobe nodule is noted measuring 1.4 cm. Mild right pleural effusion, mildly increased. Mild left pleural effusion, unchanged. No significant coronary artery calcifications. Nodular consolidation in the left lower lobe measuring 2.8 x 2.7 cm, unchanged. Follow-up is suggested. Increased interstitial pulmonary edema. Increased alveolar pulmonary edema. Bilateral basilar consolidations of the lower lobes, increased. Mild diffuse spondylosis. Unchanged mildly enlarged retroperitoneal lymph nodes. Reading Location: [place] [address] Assessment and Plan . 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
--- NOTE | 2025-01-19 09:10 | PCM.PN.BLA ---
Progress Note The patient was admitted to the hospital on January 15 after presenting with shortness of breath and fatigue. She had recently been hospitalized for 5 days in December with a heart failure exacerbation secondary to endocarditis. She was discharged home on IV ceftriaxone and vancomycin for 4 to 6 weeks. Her medical history is also significant for bilateral pulmonary emboli identified in October 2024. She is currently followed in the pulmonary medicine clinic due to a known lung nodule, obstructive sleep apnea and tobacco dependency. At the time of her admission to the hospital, the patient was noted to have a 2 g drop in her hemoglobin from prior baseline. Stool for occult blood was positive. In light of the concern for gastrointestinal bleed, the patient was admitted to the hospital. The patient was seen in consultation by gastroenterology and underwent upper endoscopy on January 17, which demonstrated no gross bleeding lesions. 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 In light of her history of pulmonary embolism and admission for GI bleeding, vascular surgery was consulted for possible IVC filter placement. Overnight, the patient was transferred to the medical intensive care unit after she became progressively hypoxemic following packed red blood cell transfusion. She was subsequently provided with Lasix and placed on BiPAP support. CTA chest was again obtained overnight which demonstrated residual clot burden bilaterally along with small pleural effusions and the previously noted nodular consolidation of the left lower lobe along with pulmonary edema. The patient is currently documented to be overall net +5.4 L for the hospitalization. In light of the concerns for transfusion associated circulatory overload we will proceed with diuresis, as tolerated by hemodynamics and renal function. Hemoglobin is currently stable at 8.1 g/dL. Creatinine is within normal limits.
--- NOTE | 2025-01-19 10:16 | CASEMGMT ---
Updated IV ATB prescriptions received by the ID doctor. Rxs scanned and sent to [facility] and [facility] via [employer] at this time.
--- NOTE | 2025-01-19 11:23 | CASEMGMT ---
Tertiary Insurance review for hospitals In-network with [facility] insurance if transfer is recommended is as follows: [facility], [facility], [place], [facility], [facility], [facility], , [place], [facility], [facility], and [place]. Cleopatra Florian, Discharge Planning Asst.
[2025-01-19] MEDS: Ceftriaxone 2 GM in 0.9% Normal Saline (50mL MB+) 50 ML IV (11:30)
[2025-01-19] MEDS: Pantoprazole Sodium 40 MG in 0.9% Normal Saline (100mL MB+) 100 ML 330 MG IV ×2 (11:30→22:30)
--- NOTE | 2025-01-19 14:34 | OP.PCM_ITS ---
Operative Report (Standard)
--- NOTE | 2025-01-19 14:34 | PCM.OPRPT ---
Operative Report (Standard) Operative Information Date of Procedure: 01/19/25 Pre-Operative Diagnosis: Recent pulmonary embolism and contraindication to anticoagulation Post-Operative Diagnosis: Same Surgery/Procedure Performed: Insertion inferior vena cava filter channel lip wetter: No Type of Anesthesia: Local and Sedation,Conscious RN Documented Start/Stop Times: Operation Date: 01/18/25 12:00 Case Time Into Pre-Op 01/18/25 11:41 Anesthesia Start 01/18/25 12:24 Into Room 01/18/25 12:24 Procedure Start 01/18/25 12:35 Procedure End 01/18/25 12:53 Anesthesia End 01/18/25 12:58 Out of Room 01/18/25 12:58 Into Recovery 01/18/25 13:00 Out of Recovery 01/18/25 13:35 Procedure Start Time: 10:15 Procedure Stop Time: 10:30 Select all DRAINS/GRAFTS/IMPLANTS that apply: Implanted device Implanted device details: Cook Celect inferior vena cava filter Estimated Blood Loss: 1 Specimen collected: No Description of surgery: HPI: Patient is a 64-year-old female with recent history of pulmonary emboli and current deep vein thrombosis who has worsening anemia and suspected GI bleed. She has undergone endoscopy of the upper GI and lower GI tract without identified bleeding source. Given her risk for recurrent or continued bleeding with anticoagulation and her recent pulmonary embolism she is felt to be appropriate for filter placement. Description of procedure: Upon obtaining informed consent and verification correct patient procedure site the patient was taken to the Director Perioperative where she was positioned prepped and draped in usual sterile fashion. Timeouts performed consultation ministered Versed and fentanyl. Skin overlying the right common femoral vein was anesthetized 1% lidocaine the vessel accessed under ultrasound guidance with a micropuncture needle wire. This then exchanged for micropuncture sheath which hand-injection ilio caval venogram was performed revealing satisfactory positioning with no extravasation or dissection. This also revealed patent normal caliber right iliac vein system and inferior vena cava. Through the micropuncture sheath a Domino wire was advanced the micropuncture sheath exchanged for the Cook filter delivery sheath. This was then advanced and positioned at the L2 vertebral body and digital traction venacavogram performed confirming normal caliber vena cava with no thrombus and revealing the position of the renal vein confluence's. This position was then marked and the dilator withdrawn. The Cook Celect filter was then advanced in position and deployed below the lowest renal vein. Completion venacavogram confirmed satisfactory position of no significant tilt. The sheath was then withdrawn and manual pressure held until hemostasis was achieved at which point the patient was returned to the intensive care unit for bedrest and vascular monitoring. Surgical Findings: See above Complications Complications: No
--- NOTE | 2025-01-19 15:22 | CASEMGMT ---
Addendum entered by Kristy Nicole 01/20/25 08:18: [facility] and [facility] notified that the pt has been transferred to [facility] 6 Original Note: The hospitalist reports that the pt requires transfer to a tertiary facility and is currently working on transfer to . [facility] JAELYN and ABRAHANI notified. CM to follow.
--- NOTE | 2025-01-19 18:13 | PN.HOSP_ITS ---
Reason for Visit
--- NOTE | 2025-01-19 18:13 | PCM.PN.HOSP ---
Reason for Visit Chief Complaint: Shortness of breath and fatigue Subjective Subjective Patient was seen and examined today, she was moved into the ICU due to increasing oxygen requirement, patient had an echocardiogram today which showed worsening endocarditis with pulse for mitral regurg. I was advised by cardiology to transfer the patient to tertiary center due to the fact she might need surgery. I went over this with the patient, at first we tried no issue but she would have been out of network with her insurer, I did contact [facility], they agreed to take the patient, as at the time of this dictation she has not yet been transferred up there. Patient to have an IVC filter placed today, she is currently on high flow oxygen. I talked to critical care about her medical care today Objective Data Objective Data Vital Signs: Vital Signs Temp Pulse Resp BP Pulse Ox O2 Del Method O2 Flow Rate 97.8 F 103 H 17 115/68 98 Airvo 45 01/19/25 16:00 01/19/25 16:00 01/19/25 16:00 01/19/25 16:00 01/19/25 16:00 01/19/25 16:00 01/19/25 16:00 FiO2 75 01/19/25 16:00 Oxygen Flow Rate (L/min) 45 Oxygen Delivery Method Airvo Weight: 68.4 kg Body Mass Index (BMI) 26.6 Intake & Output: Intake and Output for Last 24 Hours 01/17/25 01/18/25 01/19/25 23:59 23:59 23:59 Intake Total 1492.5 / 1492.5 1905.25 / 1905.25 1012 / 1012 Output Total 751 / 751 700 / 700 Balance 1492.5 / 1492.5 1154.25 / 1154.25 312 / 312 Lab / Micro Data 01/19/25 03:50 01/19/25 03:50 Labs: Laboratory Results - last 24 hr 01/15/25 17:20: Crossmatch See Detail 01/19/25 00:30: WBC 13.2 H, RBC 2.88 L, Hgb 8.2 L, Hct 25.1 L, MCV 87.2, MCH 28.5, MCHC 32.7, RDW Std Deviation 47.4 H, RDW Coeff of Millie 15.1 H, Plt Count 204, MPV 10.7, Immature Gran % (Auto) 0.600, Neut % (Auto) 75.3 H, Lymph % (Auto) 8.6 L, Larue % (Auto) 8.8, Eos % (Auto) 5.8 H, Baso % (Auto) 0.9, Absolute Neuts (auto) 10.0 H, Absolute Lymphs (auto) 1.14, Nucleated RBC % 0.2, Sodium 137, Potassium 3.1 L, Chloride 101, Carbon Dioxide 21.8, Anion Gap 14, BUN 15, Creatinine 1.06, Estim Creat Clear Calc 48.46 L, Est GFR (MDRD) Non-Af 58 L, BUN/Creatinine Ratio 14.3, Glucose 120 H, Calcium 8.4, Total Bilirubin 0.56, AST 31, ALT 10, Alkaline Phosphatase 70, Total Protein 6.1, Albumin 3.6, Globulin 2.5, Albumin/Globulin Ratio 1.5 01/19/25 03:50: WBC 13.3 H, RBC 2.84 L, Hgb 8.1 L, Hct 24.6 L, MCV 86.6, MCH 28.5, MCHC 32.9, RDW Std Deviation 47.8 H, RDW Coeff of Millie 15.2 H, Plt Count 203, MPV 10.6, Immature Gran % (Auto) 0.600, Neut % (Auto) 72.6 H, Lymph % (Auto) 10.0 L, Larue % (Auto) 9.8, Eos % (Auto) 6.2 H, Baso % (Auto) 0.8, Absolute Neuts (auto) 9.6 H, Absolute Lymphs (auto) 1.32, Nucleated RBC % 0.2, Sodium 139, Potassium 3.2 L, Chloride 102, Carbon Dioxide 23.4, Anion Gap 13, BUN 15, Creatinine 1.08, Estim Creat Clear Calc 47.56 L, Est GFR (MDRD) Non-Af 57 L, BUN/Creatinine Ratio 13.9, Glucose 124 H, Calcium 8.8, Vancomycin Trough 19.4 H Micro: Microbiology 01/15/25 15:10 Stool Stool Occult Blood (RUTH) - Final Occult Blood Positive ABG Data ABG results: ABG 01/18/25 22:10 Specimen Type ART Sample Site R Brach pH 7.41 Bicarbonate Actual 24.6 Total CO2 26 Base Excess 0 O2 Saturation 87 L O2 % 6.0 ABG pCO2 39.0 ABG pO2 53 L José Miguel Test N/A O2 Delivery Device Cannula Vent Mode Not entered Radiography Diagnostic Testing: Radiology Impression Chest CTA 01/18/25 22:28 IMPRESSION: Minimal residual segmental branches pulmonary emboli are noted in the right, left upper lobe and bilateral lower lobes, probably chronic. This is unchanged. No definite CT evidence of an acute pulmonary embolus. No CT evidence of cardiac strain. Mild increase in the size of the previously described mediastinal and hilar lymphadenopathy with the largest lymph node measuring 2.1 cm (previously 1.8 cm). Well-defined hypodense right thyroid lobe nodule is noted measuring 1.4 cm. Mild right pleural effusion, mildly increased. Mild left pleural effusion, unchanged. No significant coronary artery calcifications. Nodular consolidation in the left lower lobe measuring 2.8 x 2.7 cm, unchanged. Follow-up is suggested. Increased interstitial pulmonary edema. Increased alveolar pulmonary edema. Bilateral basilar consolidations of the lower lobes, increased. Mild diffuse spondylosis. Unchanged mildly enlarged retroperitoneal lymph nodes. Reading Location: [place] [address] Echocardiogram 01/19/25 08:00 Interpretation Summary The left ventricular ejection fraction is 65 %. Normal LV size. Left ventricular systolic function is normal. Mobile ecchogenic structure on chordal apparatus suggestive of endocarditis. Severe (4+) mitral valve insufficiency. Bileaflet diffuse mitral valve thickening worse than previous. Mobile echogenic structure suggestive of vegetation on tricuspid valve chord and pulmonic valve. Moderate (2+) tricuspid valve insufficiency. Pulmonary artery systolic pressure is 76 mmHg. Compared to the previous echocardiogram done in January 04 the above findings are worse Ordering Physician: Pablo Crump Performed By: Nakul Romero RCS Physical Exam Narrative alert, oriented x3, no apparent distress, average body habitus and healthy appearing General Appearance: cooperative, well kempt and well developed Orientation / Consciousness: awake, oriented to person, oriented to place and oriented to time, patient is on high flow oxygen and appears comfortable at rest HEENT normocephalic and moist oral mucous membranes Eyes PERRL, EOMs intact bilaterally and conjunctivae normal Neck supple, no JVD, thyroid normal and no carotid bruits General: trachea midline Resp Breath sounds are diminished bilaterally Cardio regular rate, regular rhythm, no murmurs, no rub and no gallops GI normal to inspection, nondistended, normoactive bowel sounds, soft to palpation, non-tender and non-distended Extremity no clubbing, cyanosis or edema Skin no rashes or lesions noted General Skin Exam: no breakdown Neuro oriented x3, CN's II-XII intact bilaterally, no focal motor deficits and no sensory deficits noted Sensorium / Orientation: awake and alert Speech: speech normal Psych affect normal Assessment & Plan Assessment/Plan (1) Endocarditis: (2) GI (gastrointestinal bleed): PLAN: Plan 1. 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 Her CBC will have to be monitored closely #4 endocarditis-patient remains on IV antibiotics at this time #5 chronic depression-patient remains on Wellbutrin and Lexapro at this time #6 acute on chronic diastolic congestive heart failure-patient will remain on IV Lasix at this time #7 Acute hypoxic respiratory failure secondary to diastolic congestive heart failure-continue to monitor pulse ox, patient is receiving IV Lasix Total clinical time spent by myself addressing the patient's medical issues, reviewing all of her data, and collaborating with patient's care team: 35 minutes Charges/Coding Visit Charges Inpatient E&M: 33096 Subs Hosp L2
--- NOTE | 2025-01-19 23:28 | NURSING ---
2324 - Cele from [facility] called and sad they have a room assignment for this patient. Cele is attempting to set up transport on her end, if she is unable she will contact us. Patient was notified of the update.
[2025-01-20] VITALS: BP 110/61; BP 93/61; PULSE 92; PULSE 98; RESP 20; O2SAT 96
--- NOTE | 2025-01-20 00:15 | NURSING ---
[id number] Cele with called with transfer information. Patient is accepted at [facility], CICU 6. Nurse to nurse report to [phone]. Dr.Trevor Fish is the accepting physician. Cele stated that [facility] will arrive with estimasted arrival time of 0230a. They will transport the patient. Patient is updated on plan of care
[2025-01-20 02:00] VITALS: BP 108/71; PULSE 100; RESP 23; O2SAT 95
--- NOTE | 2025-01-20 02:20 | NURSING ---
0205 Squad arrives to transport patient.
--- NOTE | 2025-01-20 10:02 | PCM.DC.SUM ---
Providers Date of Admission: 01/15/25 Date of Discharge: 01/20/25 Primary Care Physician: SLOAN Vaca, MONUMENT LETTERER-C Consultations 01/15/25 20:07 Consult: Gastroenterology Routine Consulting Provider: [facility] Reason for Consult: suspected upper GIB EMERGENT Consult: No Notified: Yes Date Notified: 01/16/25 Time Notified: 06:48 Method of Notification: Text 01/16/25 13:12 Consult: Vascular Surgery Routine Consulting Provider: Edgardo Meeks Reason for Consult: IVC filter placement EMERGENT Consult: No Notified: Yes Date Notified: 01/16/25 Time Notified: 13:12 Method of Notification: Answering Service 01/19/25 01:16 Consult: In Flight Crew Member / Pulmonary Medicine Routine Consulting Provider: Intensivists/Pulmonary Med Reason for Consult: Worsening hypoxia, recent DVT and GI bleed EMERGENT Consult: No MD Notified: Yes Date Notified: 01/19/25 Time Notified: 00:00 Method of Notification: Text Reason For Visit: ABLA W/ SUSPECTED GI BLEED Diagnosis Discharge Diagnosis (1) Endocarditis: Status: Acute Code(s): I38 - Endocarditis, valve unspecified (2) GI (gastrointestinal bleed): Status: Acute Code(s): K92.2 - Gastrointestinal hemorrhage, unspecified Plan 1. 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 Her CBC will have to be monitored closely #4 endocarditis-patient remains on IV antibiotics at this time #5 chronic depression-patient remains on Wellbutrin and Lexapro at this time #6 acute on chronic diastolic congestive heart failure-patient will remain on IV Lasix at this time #7 Acute hypoxic respiratory failure secondary to diastolic congestive heart failure-continue to monitor pulse ox, patient is receiving IV Lasix Total clinical time spent by myself addressing the patient's medical issues, reviewing all of her data, and collaborating with patient's care team: 35 minutes Medications at Discharge Home Medications albuterol sulfate 90 mcg/actuation aerosol inhaler 2 puff inhalation Q6H PRN shortness of breath or wheezing 04/15/23 bupropion HCl 150 mg tablet,12 hr sustained-release (Wellbutrin SR) 150 mg PO BID depression 06/23/24 escitalopram oxalate 10 mg tablet (Lexapro) 10 mg PO DAILY depression 06/23/24 lactobacillus combination no.9 4 billion cell capsule (Adult 50 Plus Probiotic) 4,000 mmu cells PO QDAY supplement 06/23/24 multivitamin (Daily Multi-Vitamin tablet) 1 tab PO DAILY vitamin 07/06/24 cholecalciferol (vitamin D3) 125 mcg (5,000 unit) capsule 125 mcg PO QDAY supplement 07/20/24 Oral appliance #1 ea 08/16/24 escitalopram oxalate 20 mg tablet (Lexapro) 20 mg PO QDAY depression 10/06/24 rosuvastatin 20 mg tablet 20 mg PO DAILY hyperlipidemia 10/06/24 apixaban 5 mg tablet (Eliquis) 5 mg PO BID 30 days #60 tabs 01/09/25 furosemide 20 mg tablet (Lasix) 20 mg PO QODAY 90 days #45 tabs 01/09/25 acetaminophen 500 mg capsule 1,000 mg PO Q6H PRN pain 01/15/25 ceftriaxone 2 gram intravenous solution 2 g IV Q24H 29 days 01/18/25 vancomycin 750 mg intravenous solution 750 mg IV Q12H 29 days #58 ea 01/18/25 Hospital Course Operations None Procedures 2-D Echocardiogram, Blood transfusion, Colonoscopy, EGD and - (IVC filter insertion) Summary of Care Provided Minutes Spent on Discharge: 32 Hospital Course: This 64-year-old white female was seen in the emergency room at [facility] with complaints of shortness of breath and fatigue, she had recently been hospitalized at [facility] for congestive heart failure and endocarditis, she was being treated with outpatient IV antibiotics but was on no home oxygen. Workup in the emergency room showed a hemoglobin of 8, stool was Hemoccult positive. Patient's white blood cell count was elevated at 12.7. Chest x-ray showed mild interstitial prominence. Patient was admitted to PCU, she required supplemental oxygen and was given oral diuretics. 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 Patient was given 1 unit of blood during her hospital stay. Patient's respiratory status worsened with an increasing requirement of oxygen, she was moved to the ICU and seen by critical care and an echocardiogram was obtained which showed severe mitral regurg and worsening of her endocarditis. Patient underwent insertion of an IVC filter before the echocardiogram was obtained-this was due to the fact that she still had VTE in the lower legs. Conversations were carried out with cardiology and they recommended the patient be transferred to tertiary facility due to her worsening endocarditis, was contacted and agreed to take the patient. In the chief i dispatcher hours of 01/20/2025, patient was transferred to in stable condition, she was not examined by myself on that date. Weight / BMI Weight Weight: 68.4 kg Body Mass Index (BMI) 26.6 ABG / Lab / Microbiology Data 01/19/25 03:50 01/19/25 03:50 Microbiology: Microbiology 01/19/25 13:50 Blood Culture (Wb) - Left Wrist Blood Culture - Preliminary No growth in 48 hours. 01/19/25 13:50 Blood Culture (Wb) - Right Wrist Blood Culture - Preliminary No growth in 48 hours. 01/15/25 15:10 Stool Stool Occult Blood (RUTH) - Final Occult Blood Positive Radiography Diagnostic Testing: Radiology Impression Echocardiogram 01/19/25 08:00 Interpretation Summary The left ventricular ejection fraction is 65 %. Normal LV size. Left ventricular systolic function is normal. Mobile ecchogenic structure on chordal apparatus suggestive of endocarditis. Severe (4+) mitral valve insufficiency. Bileaflet diffuse mitral valve thickening worse than previous. Mobile echogenic structure suggestive of vegetation on tricuspid valve chord and pulmonic valve. Moderate (2+) tricuspid valve insufficiency. Pulmonary artery systolic pressure is 76 mmHg. Compared to the previous echocardiogram done in January 04 the above findings are worse Ordering Physician: Pablo Crump Performed By: Nakul Romero RCS D/C Instructions DC O2, CPAP, BIPAP Needs Home O2 Discharge instructions: No DC home with Oxygen: No Meaningful Use Info Meaningful Use Meaningful Use Diagnoses (Choose all that apply): None applicable Discharge Plan Admission Admit Date/Time: 01/15/25 17:19 Attending Provider: Pablo Crump Primary Care Provider: Marsha Mendez [facility] Consulting Providers: Mitch Martinez; Ronald Ron; Farshad Fontenot; Hermilo Miller; Rosario Ceron; Reyna Crews; Erlinda Davison; Seb Arboleda; Jean-Claude Huerta; Jim Lama; Jna Gonzalez; Ronald Francis; Tawanna Whitaker; Jose Soler; Marybel Boudreaux; Julio Daniel; Bridget Sanchez; Uriah Schultz; Saman Malik; Amanda Geronimo; Mj Reed; Dioni Mcfarlane; Cortez Wilkins; Bre Arce; Bernadette Pimentel; Fransisca Peng; Elizabeth Chris; José Luis Yuen; Pablo Mcdonald; Arash Chavez; Erika Aponte; Amy Melendez; Gerard Ruiz; Arash Myles; Gonzalez Lemus; Obey Galvin; Tien Bell; Wanda Wolff; Efrain Baker; Yoon Chankhdeep; Daisy Phelan; Davy Zuleta; Tasia Clark; Kimmy Juarez; Jeff Hu; Leonardo Sylvester; Barry Salas; Nayeli Keenan; Hollis Reece; Edgardo Meeks Discharge Orders/Prescriptions Prescriptions: New ceftriaxone 2 gram recon soln 2 g IV Q24H 29 Days Rx Instructions: stop date 02/15/25. Dx: endocarditis. Weekly bmp, cbc, LFT, vanc trough. Fax to [phone]. Routine picc care per protocol. vancomycin 750 mg recon soln 750 mg IV Q12H 29 Days Qty: 58 0RF Rx Instructions: stop date 02/15/25. Dx: endocarditis. Weekly bmp, cbc, LFT, vanc trough. Fax to [phone]. Routine picc care per protocol. Discontinued ceftriaxone in dextrose,iso-os 1 gram/50 mL Piggyback 2 g IV Q24 37 Days Qty: 37 0RF Rx Instructions: stop date 02/15/25. Dx: endocarditis. Weekly bmp, cbc, LFT, vanc trough. Fax to [phone]. Routine picc care per protocol. vancomycin 750 mg recon soln 750 mg IV Q12H 37 Days Qty: 74 0RF Rx Instructions: stop date 02/15/25. Dx: endocarditis. Weekly bmp, cbc, LFT, vanc trough. Fax to [phone]. Routine picc care per protocol. No Action bupropion HCl [Wellbutrin SR] 150 mg tablet sustained-release 12 hr 150 mg PO BID escitalopram oxalate [Lexapro] 10 mg tablet 10 mg PO DAILY Rx Instructions: total of 30mg albuterol sulfate 90 mcg/actuation HFA aerosol inhaler 2 puff inhalation Q6H PRN (Reason: shortness of breath or wheezing) cholecalciferol (vitamin D3) 125 mcg (5,000 unit) capsule 125 mcg PO QDAY Adult 50 Plus Probiotic 4 billion cell capsule 4,000 mmu cells PO QDAY Rx Instructions: administer with a meal escitalopram oxalate [Lexapro] 20 mg tablet 20 mg PO QDAY rosuvastatin 20 mg tablet 20 mg PO DAILY multivitamin [Daily Multi-Vitamin] Tablet 1 tab PO DAILY Eliquis 5 mg Tablet 5 mg PO BID 30 Days Qty: 60 0RF furosemide [Lasix] 20 mg tablet 20 mg PO QODAY 90 Days Qty: 45 0RF acetaminophen 500 mg capsule 1,000 mg PO Q6H PRN (Reason: pain) (DME) Oral appliance See Rx Instructions .ROUTE .MEDSUPPLY Qty: 1 0RF Rx Instructions: As directed Referrals / Follow Up: Asael Salter MD [Med Staff - Active Staff, Cardiology] - 01/27/25 2:00 pm Referral Note: appointment with Marsha Solorio N.P., MONUMENT LETTERER-C [Primary Care Provider, Family Practice] Disposition Disposition (needs filled in before D/C Order can be placed): [facility]
== END 2025-01-20 02:30 | disposition short-term general hospital (02) | DRG 356 ==
LOC: ED 17:16 → PCU 19:23 → ICU 01-19 01:02
PROVIDERS: Family Medicine; Internal Medicine; Internal Medicine Gastroenterology; Admitting Provider Hospitalist; Emergency Provider Emergency Medicine; PCP Nurse Practitioner Family; Visit Provider Internal Medicine
PROC: 0DJ08ZZ Inspection of Upper Intestinal Tract, Via Natural or Artificial Opening Endoscopic (ICD-10-PCS; CPT 43235; principal; 2025-01-17 14:25)
PROC: 0DJD8ZZ Inspection of Lower Intestinal Tract, Via Natural or Artificial Opening Endoscopic (ICD-10-PCS; CPT 45378; principal; 2025-01-18 11:55)
DX: K55.20 Angiodysplasia of colon without hemorrhage (principal); J96.01 Acute respiratory failure with hypoxia; I50.33 Acute on chronic diastolic (congestive) heart failure; D68.32 Hemorrhagic disorder due to extrinsic circulating anticoagulants; I24.89 Other forms of acute ischemic heart disease; D62 Acute posthemorrhagic anemia; I38 Endocarditis, valve unspecified; I82.442 Acute embolism and thrombosis of left tibial vein; I82.812 Embolism and thrombosis of superficial veins of left lower extremity; I11.0 Hypertensive heart disease with heart failure; J44.9 Chronic obstructive pulmonary disease, unspecified; F32.A Depression, unspecified; E78.00 Pure hypercholesterolemia, unspecified; I82.461 Acute embolism and thrombosis of right calf muscular vein; K44.9 Diaphragmatic hernia without obstruction or gangrene; K63.5 Polyp of colon; K57.30 Diverticulosis of large intestine without perforation or abscess without bleeding; I05.9 Rheumatic mitral valve disease, unspecified; Z79.01 Long term (current) use of anticoagulants; Z87.891 Personal history of nicotine dependence; R73.9 Hyperglycemia, unspecified
CPT/HCPCS: 36415; 36592; 36600; 37191; 71046; 71275; 76937; 80048; 80053; 80202; 82274; 82803; 83735; 83880; 84100; 84484; 85014; 85018; 85025; 86850; 86900; 86901; 87040; 88305; 93005; 93308; 93970; 94002; 94003; 94668; 94762; 99152; 99284; C1769; C1880; C1894; P9016; Q9957; Q9967; A4216; J0696; J1938; J2405